=== PATIENT | male | born 1965 | race Caucasian/White ===

== ENCOUNTER 2017-04-28 07:21 | Emergency (ER) | payer SELFPAY ==
[~2017-04-28] VITALS: Ht 152.4 cm; Wt 90.0 kg
[~2017-04-28 07:21] MED LIST: ACET325T33 PO; ALPR0.5T6 PO; FAMO-96 PO; HYDR-3498 PO; HYDR-3720 PO; IBUP-1542 PO; LORA1TAB PO; ONDA4TAB11 PO; PARO10TA76 PO; PROC10TA10 PO; ZOLP5TAB PO
[2017-04-28 07:23] VITALS: Ht 152.4 cm; Wt 90.0 kg
[2017-04-28] MEDS ORDERED: LORAZEPAM 1 MG TAB PO ONE (08:00)
--- NOTE | 2017-04-28 09:16 | ERD ---
ER Documentation Chief Complaint Date/Time DATE: 04/28/17 TIME: 09:15 Chief Complaint daily drinker, last etoh ingestion in am , wants help, not kathy miles HPI Patient is a 52-year-old male with alcohol abuse and hypertension who presents with alcohol. The patient says that he "tried to relax" and drank Tequila this morning. He says "I feel like she had". He wants to get help for his alcohol abuse. Upon review of old medical records the patient has 10 visits to the ER since 2016. Review of the emergency department information exchange system shows visits to 2 separate emergency departments. He does not currently have a primary doctor. ROS All systems reviewed and are negative except as per history of present illness. Medications Home Meds Active Scripts Famotidine* (Pepcid*) 20 Mg Tablet, 20 MG PO BID for 4 Days, #30 TAB Prov:KARRI MIDDLETON PA-C 05/12/16 Acetaminophen* (Tylenol*) 325 Mg Tablet, 2 TAB PO Q8 Y for PAIN AND OR ELEVATED TEMP, #30 TAB Prov:KARRI MIDDLETON PA-C 05/12/16 Paroxetine Hcl* (Paroxetine*) 10 Mg Tablet, 10 MG PO DAILY, #30 TAB Prov:JENARO VASQUEZ MD 03/15/16 Lorazepam* (Lorazepam*) 1 Mg Tablet, 1 MG PO Q8, #10 TAB Prov:JENARO VASQUEZ MD 03/15/16 Ondansetron (Zofran Odt) 4 Mg Tab.rapdis, 4 MG PO QID, #10 Prov:JENARO VASQUEZ MD 03/15/16 Lorazepam* (Lorazepam*) 1 Mg Tablet, 1 MG PO DAILY Y for ANXIETY, #10 TAB 0 Refills Prov:JANAE TAMEZ PA-C 11/18/15 Ibuprofen* (Motrin*) 600 Mg Tab, 600 MG PO Q6, #20 TAB Prov:ZEFERINO WU 10/07/15 Alprazolam* (Alprazolam*) 0.5 Mg Tablet, 0.5 MG PO DAILY Y for ANXIETY, #5 TAB Prov:CARLIE VILLALBA NP 10/01/15 Zolpidem Tartrate* (Ambien*) 5 Mg Tablet, 5 MG PO HS Y for INSOMNIA, #10 TAB Prov:CHANTAL LUGO PA-C 09/21/15 Prochlorperazine* (Prochlorperazine*) 10 Mg Tablet, 10 MG PO Q6 Y for NAUSEA AND /OR VOMITING, #10 TAB Prov:JOSE ORTIZSTOLOS A. DO 09/06/15 Hydrocodone Bit-Acetaminophen* ([place]*) 7.5-325 Tablet, 2 TAB PO Q4H Y for PAIN , #20 TAB Prov:LEKKOS,APOSTOLOS A. DO 09/06/15 Hydrocodone Bit-Acetaminophen* ([place]*) 5-325 Mg Tab, 1 TAB PO Q6 Y for PAIN, # 10 TAB Prov:APRIL COOK DO 08/17/15 Allergies Allergies: Coded Allergies: No Known Allergy (Unverified , 05/12/16) PMhx/Soc History of Surgery: No Anesthesia Reaction: No Hx 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 Disorder: No Hx Respiratory Disorders: No Hx Cardiac Disorders: Yes (HTN) Hx Psychiatric Problems: Yes (ANXIETY) Hx Miscellaneous Medical Probl: Yes (LIVER CIRRHOSIS) Hx Alcohol Use: Yes (DAILY BEERS) Hx Substance Use: No Hx Tobacco Use: No Smoking Status: Former smoker Physical Exam Vitals Vital Signs Date Time Temp Pulse Resp B/P Pulse Ox O2 Delivery O2 Flow Rate FiO2 04/28/17 07:23 98.1 99 18 160/90 99 Physical Exam Const: Mild distress Head: Atraumatic Eyes: Normal Conjunctiva ENT: Normal External Ears, Nose and Mouth. Neck: Full range of motion..~ No meningismus. Resp: Clear to auscultation bilaterally Cardio: Regular rate and rhythm, no murmurs Abd: Soft, non tender, non distended. Normal bowel sounds Skin: No petechiae or rashes Back: No midline or flank tenderness Ext: No cyanosis, or edema Neur: Awake and alert, answering questions appropriately, no tremors Psych: Normal Mood and Affect Results 24 hrs Current Medications Medications (Trade) Dose Ordered Sig/Luis Route PRN Reason Start Time Stop Time Status Last Admin Dose Admin Lorazepam (Ativan) 1 mg ONCE ONCE PO 04/28/17 08:00 04/28/17 08:01 DC 04/28/17 08:08 Procedures/[facility] Patient is a 52-year-old male presents with alcohol abuse. The patient was given Ativan 1 mg by mouth for his symptoms. I told him that we do not have inpatient detox here at the emergency department or in the hospital which she is requesting. I will provide him with a list of the outpatient treatment centers and I do think that he would benefit from outpatient alcohol detox. The patient has no sign of delirium tremens or life-threatening alcohol withdrawal at this time. The patient will be discharged home and was provided with a list of the local treatment centers. He can return for any worsening symptoms. Departure Diagnosis: Primary Impression: Alcohol abuse Condition: Fair Patient Instructions: Alcohol Abuse Referrals: Detox centers Additional Instructions: Specialist:Usted tiene april condicin mdica que requiere que alpa a un especialista dentro de los prximos 1-2 marx.POR FAVOR,CON LUIS SEGUIMIENTO DE PRIMARIA PHSICIAN refferal. SI USTED NO TIENE UN MDICO GENERAL Y / O USTED NO PUEDE PAGAR jarrett a un mdico,los siguientes celis RECURSOS sido suministrado a usted. ES LUIS RESPONSABILIDAD PARA SER VISTOS POR EL ESPECIALISTA: ANA PISANO MD Apr 28, 2017 09:16
== END 2017-04-28 08:23 | disposition home or self-care (01) ==
LOC: E/R 07:21
DX: F10.10 Alcohol abuse, uncomplicated (principal); I10 Essential (primary) hypertension; Z87.891 Personal history of nicotine dependence
CPT/HCPCS: 99283

== ENCOUNTER 2018-06-24 03:43 | Emergency (ER) | END 2018-06-24 04:45 | disposition home or self-care (01) ==

== ENCOUNTER 2018-08-19 12:31 | Inpatient (IN) | payer OTHER ==
[2018-08-19] VITALS (11 sets, daily range): BP systolic 78–145; BP diastolic 29–83; PULSE 73–92; RESP 17–27
[~2018-08-19] VITALS: Ht 167.6 cm; Wt 117.3 kg
[~2018-08-19 12:31] MED LIST changes: +ACET1TAB40 PO; +AMOX1TAB10 PO; +IBUP800T48 PO; +NPH10OT BOTH EARS
[2018-08-19] MEDS ORDERED: SOD CHLORIDE 0.9% 500 ML IV STA (14:01)
--- NOTE | 2018-08-19 14:23 | ERD ---
ER Documentation Chief Complaint Chief Complaint 'nurse called me to get checked for low sodium: 117' AOx4, NAD. HPI 53-year-old male history of alcohol abuse, cirrhosis who presents to the emergency room because of a routine blood draw that showed a sodium of 117. The patient does describe a history of hyponatremia in the past. He states his last drink of alcohol was 7 days ago. He does note some fluid intake but slightly decreased. Normal urine output. He denies any seizure activity headache or altered mental status. No chest pain or shortness of breath. ROS All systems reviewed and are negative except as per history of present illness. Medications Home Meds Reported Medications Losartan Potassium* (Losartan Potassium*) 100 Mg Tablet, 100 MG PO DAILY, TAB 08/19/18 Hydrochlorothiazide* (Hydrochlorothiazide*) 25 Mg Tab, 25 MG PO DAILY, #30 TAB 08/19/18 Lisinopril* (Lisinopril*) 30 Mg Tablet, 30 MG PO DAILY, #30 TAB 08/19/18 Paroxetine Hcl* (Paxil*) 20 Mg Tablet, 20 MG PO DAILY, TAB 08/19/18 Discontinued Scripts Ibuprofen* (Motrin*) 800 Mg Tab, 800 MG PO Q6H PRN for PAIN AND OR ELEVATED TEMP, #30 TAB Prov:ANDREE KENNEDY 06/24/18 Acetaminophen with Codeine (Acetaminophen-Cod #3 Tablet) 1 Each Tablet, 1 TAB PO Q6H PRN for SEVERE PAIN LEVEL 7-10, #7 TAB Prov:ANDREE KENNEDY 06/24/18 Neomycin/Polymyxin/Hydrocort* (Cortisporin* Otic) 10 Ml Susp, 4 DROP BOTH EARS QID for 7 Days, EA Prov:PASILAISSAANDREE 06/24/18 Amoxicillin/Potassium Clav (Amox-Clav 875-125 mg Tablet) 875-125 mg Tab, 1 TAB PO BID for 10 Days, #20 TAB Prov:ANDREE KENNEDY F 06/24/18 Famotidine* (Pepcid*) 20 Mg Tablet, 20 MG PO BID for 4 Days, #30 TAB Prov:KARRI MDIDLETON PA-C 05/12/16 Acetaminophen* (Tylenol*) 325 Mg Tablet, 2 TAB PO Q8 PRN for PAIN AND OR ELEVATED TEMP, #30 TAB Prov:KARRI MIDDLETON PA-C 05/12/16 Paroxetine Hcl* (Paroxetine*) 10 Mg Tablet, 10 MG PO DAILY, #30 TAB Prov:JENARO VASQUEZ MD 03/15/16 Lorazepam* (Lorazepam*) 1 Mg Tablet, 1 MG PO Q8, #10 TAB Prov:JENARO VASQUEZ MD 03/15/16 Ondansetron (Zofran Odt) 4 Mg Tab.rapdis, 4 MG PO QID, #10 Prov:JENARO VASQUEZ MD 03/15/16 Lorazepam* (Lorazepam*) 1 Mg Tablet, 1 MG PO DAILY PRN for ANXIETY, #10 TAB 0 Refills Prov:JANAE TAMEZ PA-C 11/18/15 Ibuprofen* (Motrin*) 600 Mg Tab, 600 MG PO Q6, #20 TAB Prov:ZEFERINO WU MD 10/07/15 Alprazolam* (Alprazolam*) 0.5 Mg Tablet, 0.5 MG PO DAILY PRN for ANXIETY, #5 TAB Prov:CARLIE VILLALBA NP 10/01/15 Zolpidem Tartrate* (Ambien*) 5 Mg Tablet, 5 MG PO HS PRN for INSOMNIA, #10 TAB Prov:CHANTAL LUGO PA-C 09/21/15 Prochlorperazine* (Prochlorperazine*) 10 Mg Tablet, 10 MG PO Q6 PRN for NAUSEA AND/OR VOMITING, #10 TAB Prov:JOSE ORTIZSTOLOS A. DO 09/06/15 Hydrocodone Bit-Acetaminophen* ([place]*) 7.5-325 Tablet, 2 TAB PO Q4H PRN for PAIN, #20 TAB Prov:LEKKOS,APOSTOLOS A. DO 09/06/15 Hydrocodone Bit-Acetaminophen* ([place]*) 5-325 Mg Tab, 1 TAB PO Q6 PRN for PAIN, #10 TAB Prov:APRIL COOK DO 08/17/15 Allergies Allergies: Coded Allergies: No Known Allergy (Unverified , 08/19/18) PMhx/Soc History of Surgery: No Anesthesia Reaction: No Hx 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 Disorder: No Hx Respiratory Disorders: No Hx Cardiac Disorders: Yes (HTN) Hx Psychiatric Problems: Yes (ANXIETY) Hx Miscellaneous Medical Probl: Yes (LIVER CIRRHOSIS) Hx Alcohol Use: Yes (Stated he quit drinking) Hx Substance Use: No Hx Tobacco Use: No Smoking Status: Never smoker FmHx Family History: No diabetes Physical Exam Vitals Vital Signs Date Temp Pulse Resp B/P (MAP) Pulse Ox O2 O2 Flow FiO2 Time Delivery Rate 08/19/18 98.4 75 18 105/62 100 Room Air 14:59 (76) 08/19/18 98.5 89 20 134/60 98 12:36 (84) Physical Exam General: Well developed, well nourished, no acute distress Head: Normocephalic, atraumatic. Eyes: Pupils equally reactive, EOM intact ENT: Dry mucous membranes Neck: Supple, no lymphadenopathy Respiratory: Lungs clear bilaterally, no distress Cardiovascular: RRR, no murmurs, rubs, or gallops Abdominal: Soft, non-tender, non-distended, no peritoneal signs : Deferred MSK: No edema, no unilateral swelling, 5/5 strength Neurologic: Alert and oriented, moving all extremities, normal speech, no focal weakness, no cerebellar signs Skin: No rash Psych: Normal mood Result Diagram: 08/19/18 1404 08/19/18 1404 Results 24 hrs Laboratory Tests Test 08/19/18 14:04 08/19/18 14:25 White Blood Count 7.3 10^3/ul Red Blood Count 3.40 10^6/ul Hemoglobin 11.6 g/dl Hematocrit 31.8 % Mean Corpuscular Volume 93.5 fl Mean Corpuscular Hemoglobin 34.1 pg Mean Corpuscular Hemoglobin Concent 36.5 g/dl Red Cell Distribution Width 13.4 % Platelet Count 112 10^3/UL Mean Platelet Volume 10.5 fl Immature Granulocytes % 0.400 % Neutrophils % 64.2 % Lymphocytes % 18.4 % Monocytes % 15.1 % Eosinophils % 0.8 % Basophils % 1.1 % Nucleated Red Blood Cells % 0.0 /100WBC Immature Granulocytes # 0.030 10^3/ul Neutrophils # 4.7 10^3/ul Lymphocytes # 1.4 10^3/ul Monocytes # 1.1 10^3/ul Eosinophils # 0.1 10^3/ul Basophils # 0.1 10^3/ul Nucleated Red Blood Cells # 0.0 10^3/ul Prothrombin Time 18.0 Sec Prothrombin Time Ratio 1.4 INR International Normalized Ratio 1.48 Activated Partial Thromboplast Time 42.0 Sec Sodium Level 116 mmol/L Potassium Level 3.9 mmol/L Chloride Level 72 mmol/L Carbon Dioxide Level 32 mmol/L Anion Gap 12 Blood Urea Nitrogen 14 mg/dl Creatinine 0.80 mg/dl Est Glomerular Filtrat Rate mL/min > 60 mL/min Glucose Level 115 mg/dl Calcium Level 8.9 mg/dl Total Bilirubin 3.9 mg/dl Direct Bilirubin 1.20 mg/dl Indirect Bilirubin 2.7 mg/dl Aspartate Amino Transf (AST/SGOT) 624 IU/L Alanine Aminotransferase (ALT/SGPT) 188 IU/L Alkaline Phosphatase 170 IU/L Total Protein 8.0 g/dl Albumin 3.6 g/dl Globulin 4.40 g/dl Albumin/Globulin Ratio 0.81 Lipase 273 U/L Urine Color KRISTOPHER Urine Clarity CLEAR Urine pH 7.0 Urine Specific [place] 1.014 Urine Ketones NEGATIVE mg/dL Urine Nitrite NEGATIVE mg/dL Urine Bilirubin 1+ mg/dL Urine Urobilinogen 2+ mg/dL Urine Leukocyte Esterase NEGATIVE Syl[place]/ul Urine Hemoglobin NEGATIVE mg/dL Urine Random Sodium 22 mmol/L Urine Random Potassium 52.1 mmol/L Urine Glucose NEGATIVE mg/dL Urine Total Protein NEGATIVE mg/dl Current Medications Medications Dose Sig/Luis Start Time Status Last (Trade) Ordered Route PRN Stop Time Admin Dose Reason Admin Sodium 500 ml @ Q1H STAT 08/19/18 DC 08/19/18 Chloride 500 mls/hr IV 14:01 14:09 08/19/18 15:00 Sodium 1,000 ml @ Q2H IV 08/19/18 08/19/18 Chloride 500 mls/hr 14:30 14:39 Lisinopril 30 mg DAILY PO 08/20/18 (Zestril) 09:00 Paroxetine 20 mg DAILY PO 08/20/18 HCl (Paxil) 09:00 Ondansetron 4 mg Q6H PRN 08/19/18 HCl (Zofran IV nausea 15:30 Inj) Albuterol 2.5 mg Q2H RESP 08/19/18 (Proventil THERAPY PRN 15:30 0.083% (Neb)) NEB shortness of breath Docusate 100 mg Q12H PRN 08/19/18 Sodium PO 15:30 (Colace) constipation Magnesium 30 ml DAILY PRN 08/19/18 Hydroxide PO 15:30 (Milk Of Mag) constipation Procedures/MDM EKG, MONITORS, & DIAGNOSTIC IMAGING: EKG: I reviewed and interpreted a 12-lead EKG. Rhythm: Normal sinus rhythm ST Changes: No contiguous ST segment elevations T waves: No contiguous T wave inversions Impression: No evidence of acute cardiac ischemia Chest x-ray: I reviewed and interpreted a 1 view of the chest Mediastinum: No enlargement Cardiac silhouette: No cardiomegaly Airspace: Clear lung collins bilaterally without evidence of pneumothorax Bones: No evidence of fracture LAB INTERPRETATION: * CBC without evidence of infectious process * Significant hyponatremia of 116 with mild hyperbilirubinemia and transaminitis consistent with known cirrhosis MEDICAL DECISION MAKING: The patient presents with hyponatremia of 117. This is significant. Patient has no headache and no altered mental status and no seizures to warrant hypertonic saline. The patient's presentation is likely consistent with hypovolemic hyponatremia in the setting of alcohol abuse history. However, gentle fluid replacement is certainly necessary given risk for seizure and cerebral edema. The patient's sodium deficit is approximately 1276 mEq based on calculation on MDCalc. Based on the patient's sodium level, weight, age and gender sodium replacement at 962 mL's per hour with normal saline will increase sodium by 0.5 mmol/L/h. I will start the patient on 500 cc/h, repeat laboratory testing to guide improvement in sodium would be most appropriate in the ICU setting. Continue to monitor. Urine electrolytes have been sent. ER COURSE: * The patient was given gentle fluid resuscitation in the form of normal saline, normal saline replacement as documented above. The patient remained stable. CONSULTATION: None DISPOSITION PLAN: Accepting care team and consultations: I discussed the current laboratory data, diagnostic imaging and emergency care provided. Admitting team: Dr. Gerard Admitting team indication: Insurance directed Critical Care Note: Total time: 42 minutes Indication/Organ System Threat: Severe hyponatremia I spent the above amount of critical care time with the patient, not including billable procedures. This included chart review, consultations, repeat bedside evaluations, and titration of appropriate medications to prevent cardiopulmonary or respiratory collapse. Departure Diagnosis: Primary Impression: Alcohol abuse Additional Impressions: Acute hyponatremia Cirrhosis Condition: Serious ASHLEY MONTERO MD Aug 19, 2018 14:23
[2018-08-19] MEDS: SOD CHLORIDE 0.9% 1,000 ML IV SCH ×3 (14:39→17:27)
[2018-08-19] MEDS ORDERED: PARO-2 PO (14:53)
[2018-08-19] MEDS ORDERED: HYDR25TA6 PO (14:54)
[2018-08-19] MEDS ORDERED: LOSA100T15 PO (14:54)
[2018-08-19] MEDS ORDERED: LISI30TA47 PO (14:54)
--- NOTE | 2018-08-19 15:09 | HP ---
Date/Time of Note Date/Time of Note DATE: 08/19/18 TIME: 15:09 Assessment/Plan VTE Prophylaxis SCD applied (from Nsg): Yes Pharmacological prophylaxis: NA/contraindicated Pharm contraindication: thrombocytopenia Lines/Catheters IV Catheter Type (from Nrsg): Saline Lock Assessment/Plan Assessment/Plan 1. Acute moderate hyponatremia - most likely hypovolemic hyponatremia - Nephrology consulted for further recommendations. Workup ordered and will continue monitoring Na levels with goal of no more than 8-10 increase over 24 hours - patient given NS boluses in ED - Patient does admit to mild headache and visual changes over the past few days - d/c hctz as contributed to hyponatremia 2. Elevated LFT - patient does have a history of cirrhosis but check RUQ US - shows early cholecystitis but patient denies any abdominal discomfort or difficulty eating - will start antibiotics empirically 3. Alcoholic hepatitis - AST>ALT which is consistent with alcoholic etiology - will order hep panel as well - if no improvement will consult GI for further recommendations 4. Alcoholic liver cirrhosis - had outpatient follow up scheduled for evaluation - no ascites appreciated and will hold off on diuretics in setting of hyponatremia 5. Anemia of chronic disease - will check iron studies - no acute bleeding appreciated 6. Ringing in ear - congestion appreciate - will order nasal saline 7. Diet - cardiac 8. DVT ppx - SCD 9. Disposition - Admit to ICU for close monitoring given Na 116 Result Diagram: 08/19/18 1404 08/19/18 1404 Results 24hrs Laboratory Tests Test 08/19/18 14:04 08/19/18 14:25 White Blood Count 7.3 Red Blood Count 3.40 L Hemoglobin 11.6 L Hematocrit 31.8 #L Mean Corpuscular Volume 93.5 Mean Corpuscular Hemoglobin 34.1 H Mean Corpuscular Hemoglobin Concent 36.5 Red Cell Distribution Width 13.4 Platelet Count 112 L Mean Platelet Volume 10.5 #H Immature Granulocytes % 0.400 Neutrophils % 64.2 Lymphocytes % 18.4 Monocytes % 15.1 H Eosinophils % 0.8 Basophils % 1.1 Nucleated Red Blood Cells % 0.0 Immature Granulocytes # 0.030 Neutrophils # 4.7 Lymphocytes # 1.4 Monocytes # 1.1 H Eosinophils # 0.1 Basophils # 0.1 Nucleated Red Blood Cells # 0.0 Prothrombin Time 18.0 H Prothrombin Time Ratio 1.4 INR International Normalized Ratio 1.48 Activated Partial Thromboplast Time 42.0 H Sodium Level 116 *L Potassium Level 3.9 Chloride Level 72 L Carbon Dioxide Level 32 H Anion Gap 12 Blood Urea Nitrogen 14 Creatinine 0.80 Est Glomerular Filtrat Rate mL/min > 60 Glucose Level 115 Calcium Level 8.9 Total Bilirubin 3.9 H Direct Bilirubin 1.20 H Indirect Bilirubin 2.7 H Aspartate Amino Transf (AST/SGOT) 624 H Alanine Aminotransferase (ALT/SGPT) 188 H Alkaline Phosphatase 170 H Total Protein 8.0 Albumin 3.6 Globulin 4.40 H Albumin/Globulin Ratio 0.81 Lipase 273 Urine Color KRISTOPHER Urine Clarity CLEAR Urine pH 7.0 Urine Specific [place] 1.014 Urine Ketones NEGATIVE Urine Nitrite NEGATIVE Urine Bilirubin 1+ H Urine Urobilinogen 2+ H Urine Leukocyte Esterase NEGATIVE Urine Hemoglobin NEGATIVE Urine Glucose NEGATIVE Urine Total Protein NEGATIVE HPI/ROS Admit Date/Time Admit Date/Time 08/19/18 at 1500 Hx of Present Illness 53 yo M with PMH HTN and alcoholic liver cirrhosis presented to ED for evaluation of general malaise and Na 117. Patient states he has not been feeling well for some time but has worsened over the past couple days. His PCP ordered lab work and was told to go to the ED due to findings of Na 117. Patient states he has experiencing hyponatremia 1-2 years ago. Patient admits to mild headache with slightly blurred vision and ringing in left ear but denies any loss of vision, neuropathy, dizziness, loss of consciousness, nausea, vomiting, congestion. 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 Last etoh use was 1 week ago. Denies any chest pain, shortness of breath, palpitations, wheezing, or cough. ROS All 12 systems reviewed and pertinent positives as per HPI. All others negative. Constitutional: No disoriented, No nausea Eyes: No discharge ENT: other (ringing in right ear); No congestion Respiratory: No cough, No shortness of breath, No sputum, No wheezing Cardiovascular: No chest pain, No lightheadedness, No palpitations Gastrointestinal: No pain, No constipation, No diarrhea, No nausea, No vomiting Genitourinary: no complaints Musculoskeletal: no complaints Skin: skin lesions Neurologic: headache; No confusion, No dizziness, No focal-weakness, No syncope Endocrine: no complaints Lymphatic: no complaints Psychological: nl mood/affect Immunologic: no complaints PMH/Family/Social Past Medical History Medical History: hypertension, other (alcoholic liver cirrhosis) Medications Current Medications Sodium Chloride 1,000 ml @ 500 mls/hr Q2H IV Last administered on 08/19/18at 14:39; Admin Dose 500 MLS/HR; Start 08/19/18 at 14:30 Lisinopril (Zestril) 30 mg DAILY PO ; Start 08/20/18 at 09:00; Status UNV Paroxetine HCl (Paxil) 20 mg DAILY PO ; Start 08/20/18 at 09:00; Status UNV Coded Allergies: No Known Allergy (Unverified , 08/19/18) Past Surgical History Past Surgical Hx: no surgical history Family History Significant Family History: no pertinent family hx Social History Alcohol Use: other (last use 1 week ago) Smoking Status: Never smoker Drug Use: none Exam/Review of Systems Vital Signs Vitals Vital Signs Date Temp Pulse Resp B/P (MAP) Pulse Ox O2 O2 Flow FiO2 Time Delivery Rate 08/19/18 98.4 75 18 105/62 100 Room Air 14:59 (76) Exam Exam General: Patient is laying in bed, no acute distress. answering questions appropriately HEENT: NC/AT. PERRL. EOM intact. Neck: Supple Respiratory: Clear to auscultation bilaterally. no wheezing or rhonchi Cardiovascular: S1, S2, regular rate and rhythm, no obvious murmurs Gastrointestinal: soft, non-tender to palpation, protuberant, bowel sounds heard. 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: CN 2-12 intact, no focal deficits. sensation and motor intact Skin: lesion on nose and left cheek. no discharge or drainage Ext: no cyanosis, clubbing or edema. dry mucous membranes. Additional Comments Home medications reviewed. Imaging: PROCEDURE: Right upper quadrant ultrasound CLINICAL INDICATION: Abnormal liver function TECHNIQUE: Multiple real-time images were acquired of the patient's abdomen and right retroperitoneum utilizing a high resolution transducer. COMPARISON: 05/12/2016 FINDINGS: The liver is increased in echogenicity and measures 18.3 cm. No focal hepatic masses are seen. The gallbladder is physiologically distended. There is new sludge identified within the gallbladder. There is mild thickening of the gallbladder wall. No pericholecystic fluid is seen. The intra and extrahepatic bile ducts are normal in caliber. The common bile duct measures 2.4 mm. Pancreas is not visualized due to overlying bowel gas. Survey views of the right kidney demonstrate no evidence of hydronephrosis or renal calculi. The right kidney measures 10.8 cm. There is a 9 mm right renal cyst. IMPRESSION: 1. New sludge is noted in the gallbladder. There is mild thickening of the gallbladder wall. The right clinical setting this may suggest early cholecystitis. 2. No biliary duct dilatation. 3. Fatty change of the liver. 4. Pancreas not visualized RPTAT: HH .Sudheer Merritt MD, MD Date Time Electronically viewed and signed by .Sudheer Merritt MD, MD on 08/19/2018 15:56 PROCEDURE: XR Chest AP portable CLINICAL INDICATION: Low sodium, rule out pulmonary process TECHNIQUE: An AP portable radiograph of the chest was submitted. COMPARISON: None. FINDINGS: Support Hardware: None Cardiovascular: The cardiovascular silhouette appears unremarkable. Lung Collins: The lung collins appear clear with no nodule, alveolar infiltrate, or interstitial prominence evident. Pleural Spaces: No pneumothorax or pleural effusion is identified. Osseous Structures: The osseous structures appear intact. Soft Tissues: The soft tissues appear generous. IMPRESSION: Unremarkable portable chest. Physician Erika Date Time Electronically viewed and signed by Physician Erika on 08/19/2018 14:29 PRINCE PENA MD Aug 19, 2018 15:09
--- NOTE | 2018-08-19 15:23 | CONS ---
Assessment/Plan Assessment/Plan Assessment/Plan (Daily) 1. Moderate to severe symptomatic hyponatremia 2. Liver cirrhosis 3. alcoholic hepatitis 4. Elevated LFTs 5. anemia fo chronic disease 6. Hypoalbuminemia due to liver disease Plan: seen in ICU, S/p IV bolus in ED, Urine Na 22, c/w low albumin status IVF NS at 85 cc/hr urine osmolarity, serum osmolarity, uric acid IV albumin 25% 50ml Q 8 hr x 3 for low albumin BUN/Cr has been normal Seen in ICU, thanks for consultation, I will continue to follow up Consultation Date/Type/Reason Admit Date/Time 08/19/2018 Date of Consultation: Aug 19, 2018 Type of Consult NEPHROLOGY Reason for Consultation Severe Hyponatremia Requesting Provider: PRINCE PENA MD Date/Time of Note DATE: 08/19/18 TIME: 15:22 Hx of Present Illness 53 yo M with PMH HTN and alcoholic liver cirrhosis presented to ED for evaluation of general malaise and Na 117. Patient states he has not been feeling well for some time but has worsened over the past couple days. pt follows with liver cirrhosis as outpatient after NS 500 cc IV bolus Na improved to 118 albumin 3.2 No chest pain, no palpitation , no SOB, no nausea, no vomiting Constitutional: poor po Eyes: no complaints ENT: congestion, sore throat Respiratory: no complaints Cardiovascular: no complaints Gastrointestinal: no complaints Genitourinary: no complaints Musculoskeletal: no complaints Skin: no complaints Neurologic: no complaints Endocrine: no complaints Lymphatic: no complaints Psychological: no complaints Immunologic: no complaints Past Medical History Medical History: high cholesterol, hypertension, other (ESLD, liver Cirrhosis ) Home Meds Reported Medications Losartan Potassium* (Losartan Potassium*) 100 Mg Tablet, 100 MG PO DAILY, TAB 08/19/18 Hydrochlorothiazide* (Hydrochlorothiazide*) 25 Mg Tab, 25 MG PO DAILY, #30 TAB 08/19/18 Lisinopril* (Lisinopril*) 30 Mg Tablet, 30 MG PO DAILY, #30 TAB 08/19/18 Paroxetine Hcl* (Paxil*) 20 Mg Tablet, 20 MG PO DAILY, TAB 08/19/18 Discontinued Scripts Ibuprofen* (Motrin*) 800 Mg Tab, 800 MG PO Q6H PRN for PAIN AND OR ELEVATED TEMP, #30 TAB Prov:ANDREE KENNEDY 06/24/18 Acetaminophen with Codeine (Acetaminophen-Cod #3 Tablet) 1 Each Tablet, 1 TAB PO Q6H PRN for SEVERE PAIN LEVEL 7-10, #7 TAB Prov:ANDREE KENNEDY 06/24/18 Neomycin/Polymyxin/Hydrocort* (Cortisporin* Otic) 10 Ml Susp, 4 DROP BOTH EARS QID for 7 Days, EA Prov:ANDREE KENNEDY 06/24/18 Amoxicillin/Potassium Clav (Amox-Clav 875-125 mg Tablet) 875-125 mg Tab, 1 TAB PO BID for 10 Days, #20 TAB Prov:ANDREE KENNEDY 06/24/18 Famotidine* (Pepcid*) 20 Mg Tablet, 20 MG PO BID for 4 Days, #30 TAB Prov:KARRI MIDDLETON PA-C 05/12/16 Acetaminophen* (Tylenol*) 325 Mg Tablet, 2 TAB PO Q8 PRN for PAIN AND OR ELEVATED TEMP, #30 TAB Prov:KARRI MIDDLETON PA-C 05/12/16 Paroxetine Hcl* (Paroxetine*) 10 Mg Tablet, 10 MG PO DAILY, #30 TAB Prov:JENARO VASUQEZ MD 03/15/16 Lorazepam* (Lorazepam*) 1 Mg Tablet, 1 MG PO Q8, #10 TAB Prov:JENARO VASQUEZ MD 03/15/16 Ondansetron (Zofran Odt) 4 Mg Tab.rapdis, 4 MG PO QID, #10 Prov:JENARO VASQUEZ MD 03/15/16 Lorazepam* (Lorazepam*) 1 Mg Tablet, 1 MG PO DAILY PRN for ANXIETY, #10 TAB 0 Refills Prov:JANAE TAMEZ PA-C 11/18/15 Ibuprofen* (Motrin*) 600 Mg Tab, 600 MG PO Q6, #20 TAB Prov:ZEFERINO WU MD 10/07/15 Alprazolam* (Alprazolam*) 0.5 Mg Tablet, 0.5 MG PO DAILY PRN for ANXIETY, #5 TAB Prov:CARLIE VILLALBA NP 10/01/15 Zolpidem Tartrate* (Ambien*) 5 Mg Tablet, 5 MG PO HS PRN for INSOMNIA, #10 TAB Prov:CHANTAL LUGO PA-C 09/21/15 Prochlorperazine* (Prochlorperazine*) 10 Mg Tablet, 10 MG PO Q6 PRN for NAUSEA AND/OR VOMITING, #10 TAB Prov:EDWINMARIPOSAAMARA Rhianna. DO 09/06/15 Hydrocodone Bit-Acetaminophen* ([place]*) 7.5-325 Tablet, 2 TAB PO Q4H PRN for PAIN, #20 TAB Prov:ANGELJOSESTDOMOS A. DO 09/06/15 Hydrocodone Bit-Acetaminophen* ([place]*) 5-325 Mg Tab, 1 TAB PO Q6 PRN for PAIN, #10 TAB Prov:APRIL COOK DO 08/17/15 Medications Current Medications Sodium Chloride 1,000 ml @ 500 mls/hr Q2H IV Last administered on 08/19/18at 14:39; Admin Dose 500 MLS/HR; Start 08/19/18 at 14:30 Lisinopril (Zestril) 30 mg DAILY PO ; Start 08/20/18 at 09:00 Paroxetine HCl (Paxil) 20 mg DAILY PO ; Start 08/20/18 at 09:00 Ondansetron HCl (Zofran Inj) 4 mg Q6H PRN IV nausea; Start 08/19/18 at 15:30 Albuterol (Proventil 0.083% (Neb)) 2.5 mg Q2H RESP THERAPY PRN NEB shortness of breath; Start 08/19/18 at 15:30 Docusate Sodium (Colace) 100 mg Q12H PRN PO constipation; Start 08/19/18 at 15:30 Magnesium Hydroxide (Milk Of Mag) 30 ml DAILY PRN PO constipation; Start 08/19/18 at 15:30 Allergies: Coded Allergies: No Known Allergy (Unverified , 08/19/18) Past Surgical History Past Surgical Hx: no surgical history Family History Significant Family History: no pertinent family hx Social History Alcohol Use: none Smoking Status: Never smoker Drug Use: none Exam/Review of Systems Exam Vitals Vital Signs Date Temp Pulse Resp B/P (MAP) Pulse Ox O2 O2 Flow FiO2 Time Delivery Rate 08/19/18 98.4 75 18 105/62 100 Room Air 14:59 (76) Constitutional: alert, distress Head: normocephalic Eyes: nl conjunctiva ENMT: nl external ears & nose Neck: supple, jvd Respiratory: congested cough, crackles/rales, diminished breath sounds Cardiovascular: regular rate and rhythm, nl pulses Gastrointestinal: soft, non-tender Musculoskeletal: muscle weakness, swelling Extremities: normal pulses 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: DOOR GLASS INSTALLER II-XII intact, nl mental status Skin: nl turgor Lymph: nl lymph nodes Results Result Diagram: 08/19/18 1404 08/19/18 1404 Results 24hrs Laboratory Tests Test 08/19/18 14:04 08/19/18 14:25 White Blood Count 7.3 Red Blood Count 3.40 L Hemoglobin 11.6 L Hematocrit 31.8 #L Mean Corpuscular Volume 93.5 Mean Corpuscular Hemoglobin 34.1 H Mean Corpuscular Hemoglobin Concent 36.5 Red Cell Distribution Width 13.4 Platelet Count 112 L Mean Platelet Volume 10.5 #H Immature Granulocytes % 0.400 Neutrophils % 64.2 Lymphocytes % 18.4 Monocytes % 15.1 H Eosinophils % 0.8 Basophils % 1.1 Nucleated Red Blood Cells % 0.0 Immature Granulocytes # 0.030 Neutrophils # 4.7 Lymphocytes # 1.4 Monocytes # 1.1 H Eosinophils # 0.1 Basophils # 0.1 Nucleated Red Blood Cells # 0.0 Prothrombin Time 18.0 H Prothrombin Time Ratio 1.4 INR International Normalized Ratio 1.48 Activated Partial Thromboplast Time 42.0 H Sodium Level 116 *L Potassium Level 3.9 Chloride Level 72 L Carbon Dioxide Level 32 H Anion Gap 12 Blood Urea Nitrogen 14 Creatinine 0.80 Est Glomerular Filtrat Rate mL/min > 60 Glucose Level 115 Calcium Level 8.9 Total Bilirubin 3.9 H Direct Bilirubin 1.20 H Indirect Bilirubin 2.7 H Aspartate Amino Transf (AST/SGOT) 624 H Alanine Aminotransferase (ALT/SGPT) 188 H Alkaline Phosphatase 170 H Total Protein 8.0 Albumin 3.6 Globulin 4.40 H Albumin/Globulin Ratio 0.81 Lipase 273 Urine Color KRISTOPHER Urine Clarity CLEAR Urine pH 7.0 Urine Specific [place] 1.014 Urine Ketones NEGATIVE Urine Nitrite NEGATIVE Urine Bilirubin 1+ H Urine Urobilinogen 2+ H Urine Leukocyte Esterase NEGATIVE Urine Hemoglobin NEGATIVE Urine Random Sodium 22 L Urine Random Potassium 52.1 Urine Glucose NEGATIVE Urine Total Protein NEGATIVE BUCK CARO MD Aug 19, 2018 15:23
[2018-08-19] MEDS ORDERED: ONDANSETRON 4 MG INJ IV PRN (15:30)
[2018-08-19] MEDS ORDERED: ALBUTEROL 0.083% (NEB) 2.5 MG/3 ML AMP NEB PRN (15:30)
[2018-08-19] MEDS ORDERED: DOCUSATE SODIUM 100 MG CAP PO PRN (15:30)
[2018-08-19] MEDS ORDERED: MAGNESIUM HYDROXIDE 30ML CUP PO PRN (15:30)
[2018-08-19] MEDS: PIPER-TAZO 2.25 GM (PMX) 50 ML IVPB SCH ×2 (17:36→22:09)
--- NOTE | 2018-08-19 18:32 | NUR ---
ICU Admission Pt. admitted from ER at 1530 with an admitting diagnosis of hyponatremia. Pt. A/O x4, no neurological deficits appreciated with exception of blurry vision which was present upon arrival at the Emergency Department and has been improving. hands and dial inspector shows NSR and patient is normotensive. No supplemental oxygen with an O2 sat of 98%. Pt. instructed on how to use call light and and oriented to surroundings. No acute issues at this time; will continue to monitor.
[2018-08-19] MEDS ORDERED: POTASSIUM CHLORIDE (SR) 20 MEQ TAB PO STA (19:34)
--- NOTE | 2018-08-19 20:05 | NUR ---
Pt is hypotensive but asymptomatic. called dr. fitzgerald, orders received.
[2018-08-19] MEDS ORDERED: ALBUMIN HUMAN 25% 100 ML ONE (20:12)
[2018-08-19] MEDS: ALBUMIN HUMAN 25% 100 ML IV SCH ×2 (20:28→22:13)
[2018-08-19] MEDS ORDERED: SALINE 0.65% 45 ML NAS SPRAY NASAL SCH (21:00)
[2018-08-19] MEDS: ALBUMIN HUMAN 25% 50 ML IV SCH (23:35)
[2018-08-20] VITALS (26 sets, daily range): BP systolic 97–157; BP diastolic 53–97; PULSE 78–109; RESP 17–34
[2018-08-20] MEDS: PIPER-TAZO 2.25 GM (PMX) 50 ML IVPB SCH ×3 (05:34→21:04)
--- NOTE | 2018-08-20 05:36 | NUR ---
end of shift report no acute events over night. pt had episode of asymptomatic hypotension which resolved after albumin was given. good urine output, vitals after albumin wnl. pt slept well throughout the night. afebrile. denies headache, n/v, chest pain, sob and/or pain. pt able to ambulate to the bathroom independently. Pts sodium levels are improving.
[2018-08-20] MEDS: ALBUMIN HUMAN 25% 50 ML IV SCH ×2 (06:19→15:33)
[2018-08-20] MEDS: PAROXETINE 20 MG TAB PO SCH (08:24)
[2018-08-20] MEDS: LISINOPRIL 10 MG TAB PO SCH (08:25)
[2018-08-20] MEDS ORDERED: SALINE 0.65% 45 ML NAS SPRAY NASAL SCH (08:31)
--- NOTE | 2018-08-20 09:08 | CONS ---
Assessment/Plan Assessment/Plan Assessment/Plan (Daily) 1. Moderate to severe symptomatic hyponatremia 2. Liver cirrhosis 3. alcoholic hepatitis 4. Elevated LFTs 5. anemia fo chronic disease 6. Hypoalbuminemia due to liver disease Plan: Na improved to 132 with IVF NS IVF NS - decrease rate to 50 cc /hr then d/c BUN/Cr has been normal will follow up on pt ok for telemetry floor Consultation Date/Type/Reason Admit Date/Time Aug 19, 2018 at 14:43 Initial Consult Date 08/19/18 Type of Consult NEPHROLOGY Requesting Provider: PRINCE PENA MD Date/Time of Note DATE: 08/20/18 TIME: 09:08 24 HR Interval Summary Free Text/Dictation Na imrpoved to 132, pt normal, afebrile, no acute events Exam/Review of Systems Exam Vitals Vital Signs Date Temp Pulse Resp B/P (MAP) Pulse Ox O2 O2 Flow FiO2 Time Delivery Rate 08/20/18 80 24 115/62 98 Room Air 06:00 (79) 08/20/18 98.3 04:00 Intake and Output 08/19/18 08/19/18 08/20/18 1515:00 23:00 07:00 IntakeIntake Total 2075 ml 625 ml OutputOutput Total 650 ml 2900 ml BalanceBalance 1425 ml -2275 ml Constitutional: alert, awake, no acute distress Respiratory: congested cough, crackles/rales, diminished breath sounds Cardiovascular: regular rate and rhythm, nl pulses Gastrointestinal: soft, non-tender Musculoskeletal: muscle weakness, swelling Extremities: normal pulses 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: BEAUTY 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 II-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 intact, nl mental status Skin: nl turgor Lymph: nl lymph nodes Results Result Diagram: 08/19/18 1404 08/20/18 0422 Results 24hrs Laboratory Tests Test 08/19/18 14:04 08/19/18 14:05 08/19/18 14:25 08/19/18 18:14 White Blood Count 7.3 Red Blood Count 3.40 L Hemoglobin 11.6 L Hematocrit 31.8 #L Mean Corpuscular 93.5 Volume Mean Corpuscular 34.1 H Hemoglobin Mean Corpuscular 36.5 Hemoglobin Concent Red Cell 13.4 Distribution Width Platelet Count 112 L Mean Platelet Volume 10.5 #H Immature 0.400 Granulocytes % Neutrophils % 64.2 Lymphocytes % 18.4 Monocytes % 15.1 H Eosinophils % 0.8 Basophils % 1.1 Nucleated Red Blood 0.0 Cells % Immature 0.030 Granulocytes # Neutrophils # 4.7 Lymphocytes # 1.4 Monocytes # 1.1 H Eosinophils # 0.1 Basophils # 0.1 Nucleated Red Blood 0.0 Cells # Prothrombin Time 18.0 H Prothrombin Time 1.4 Ratio INR International 1.48 Normalized Ratio Activated 42.0 H Partial Thromboplast Time Sodium Level 116 *L 118 *L Potassium Level 3.9 3.2 L Chloride Level 72 L 78 #L Carbon Dioxide Level 32 H 29 Anion Gap 12 11 Blood Urea Nitrogen 14 13 Creatinine 0.80 0.66 Est Glomerular > 60 Filtrat Rate mL/min Glucose Level 115 154 Calcium Level 8.9 8.3 L Total Bilirubin 3.9 H Direct Bilirubin 1.20 H Indirect Bilirubin 2.7 H Aspartate Amino 624 H Transf (AST/SGOT) Alanine 188 H Aminotransferase (AL T/SGPT) Alkaline Phosphatase 170 H Total Protein 8.0 Albumin 3.6 3.2 L Globulin 4.40 H Albumin/Globulin 0.81 Ratio Lipase 273 Osmolality 241 L Uric Acid 2.0 L Urine Color KRISTOPHER Urine Clarity CLEAR Urine pH 7.0 Urine Specific 1.014 [place] Urine Ketones NEGATIVE Urine Nitrite NEGATIVE Urine Bilirubin 1+ H Urine Urobilinogen 2+ H Urine Leukocyte NEGATIVE Esterase Urine Hemoglobin NEGATIVE Urine Osmolality 394 Urine Random Sodium 22 L Urine Random 52.1 Potassium Urine Glucose NEGATIVE Urine Total Protein NEGATIVE Phosphorus Level 2.6 Hepatitis B Surface NEGATIVE Antigen Hepatitis B Core NEGATIVE Total Antibody Hepatitis C Antibody REACTIVE H Test 08/19/18 23:01 08/20/18 01:24 08/20/18 04:22 Sodium Level 123 L 126 L 127 L Potassium Level 3.7 3.9 3.7 Chloride Level 81 L 84 L 89 L Carbon Dioxide Level 27 30 30 Anion Gap 15 H 12 8 Blood Urea Nitrogen 13 12 11 Creatinine 0.73 0.71 0.68 Glucose Level 100 # 94 95 Calcium Level 8.4 8.8 8.8 Phosphorus Level 2.6 2.5 Albumin 3.6 3.9 3.7 Est Glomerular > 60 Filtrat Rate mL/min Magnesium Level 2.1 Total Bilirubin 2.7 H Direct Bilirubin 0.90 #H Indirect Bilirubin 1.8 H Aspartate Amino 404 H Transf (AST/SGOT) Alanine 153 H Aminotransferase (AL T/SGPT) Alkaline Phosphatase 184 H Total Protein 7.5 Globulin 3.80 H Albumin/Globulin 0.97 Ratio BUCK CARO MD Aug 20, 2018 09:08
--- NOTE | 2018-08-20 09:10 | NUR ---
PT evaluation Therapy day number 1 Evaluation Start Time 09:10 Evaluation End Time 09:50 Evaluation Total Time 40 min Subjective Denies pain Pain Scale NUMERIC Pain Intensity 0 (0-10) Patient Stated Goal for Pain Relief 0 (0-10) Pain Level Comment denies pain Pre Treatment Vital Signs Stable Yes Supine to Sit Independent Transfer Sit to Stand Ability Independent Bed Mobility Sit to Supine Independent Bed Transfer Ability Independent Chair Transfer Ability Independent Gait Assist Levels Independent Assistive Devices None Ambulation Distance 400 feet Additional Gait Comments able to change direction and speeds without difficulty on cue Static Sitting Balance Good Dynamic Sitting Balance Good Standing Static Balance Good Dynamic Standing Balance Good Safety Judgement Good Activity Tolerance Good Equipment Present IV pump Additional Equipment Present ICU monitoring Post Treatment Pain Intensity 0 0-10 Additional Post Treatment Comment See note Total Minutes 40 Total Units 3 PT Technical Record Comment 53 yo male presents with general malaise and low sodium. Presents with mild headache, blurred vision, and ringling in L ear. CXR unremarkable. Abdominal US indicates new sludge in gallbladder, fatty change of the liver PMH: HTN and alcoholic liver cirrhosis Precautions: fall risk, ICU monitoring PLOF: Patient reports independent mobility with no AD, lives in a [facility] with spouse. S: Patient in bed, agreeable to PT evaluation. pt cleared for activity per RN. O: PT evaluation completed, pt returned back to bed following therapy intervention with call light within reach and all needs met. No reports of pain, dizziness, or shortness of breath with activity. Vitals stable throughout. Spoke to RN regarding pt response to activity and PT plan of care. Spouse present for portion of evaluation. A: Patient presents with strong mobility throughout with no assistive device. Patient able to change directions and speeds without difficulty or loss of balance. Pt receptive to PT education throughout but otherwise demonstrates baseline functional mobility and thus does not require skilled inpatient PT at this time. P: Discharge physical therapy, Patient may ambulate with nursing, no recommendations for DME at this time
--- NOTE | 2018-08-20 09:34 | PN ---
Date/Time of Note Date/Time of Note DATE: 08/20/18 TIME: 09:34 Assessment/Plan VTE Prophylaxis Risk score (from [facility] [place])>0 risk: 3 SCD applied (from [facility] [place]): Yes Pharmacological prophylaxis: NA/contraindicated Pharm contraindication: thrombocytopenia Lines/Catheters IV [facility]ter Type (from [facility]): Peripheral IV Urinary Cath still in place: No Assessment/Plan Assessment/Plan 1. Acute moderate hyponatremia- improving - Nephrology input appreciated and Na levels continue to improve. No neurological changes appreciated - most likely hypovolemic hyponatremia - d/c hctz as contributed to hyponatremia 2. Elevated LFT - Hep C Ab positives and further studies ordered - RUQ US results appreciated but pt denies any symptoms - has outpatient GI follow up 3. Alcoholic hepatitis - AST>ALT which is consistent with alcoholic etiology 4. Alcoholic liver cirrhosis - had outpatient follow up scheduled for evaluation - no ascites appreciated and will hold off on diuretics in setting of hyponatremia 5. Anemia of chronic disease - no acute bleeding appreciated 6. Ringing in ear - congestion appreciate - will order flonase 7. Hep C - will order further studies - will need outpatient follow up 8. Disposition - stable for transfer to telemetry. Continue monitoring Na levels and when at baseline and no further issues, will d/c home Result Diagram: 08/19/18 1404 08/20/18 0422 Results 24hrs Laboratory Tests Test 08/19/18 14:04 08/19/18 14:05 08/19/18 14:25 08/19/18 18:14 White Blood Count 7.3 Red Blood Count 3.40 L Hemoglobin 11.6 L Hematocrit 31.8 #L Mean Corpuscular 93.5 Volume Mean Corpuscular 34.1 H Hemoglobin Mean Corpuscular 36.5 Hemoglobin Concent Red Cell 13.4 Distribution Width Platelet Count 112 L Mean Platelet Volume 10.5 #H Immature 0.400 Granulocytes % Neutrophils % 64.2 Lymphocytes % 18.4 Monocytes % 15.1 H Eosinophils % 0.8 Basophils % 1.1 Nucleated Red Blood 0.0 Cells % Immature 0.030 Granulocytes # Neutrophils # 4.7 Lymphocytes # 1.4 Monocytes # 1.1 H Eosinophils # 0.1 Basophils # 0.1 Nucleated Red Blood 0.0 Cells # Prothrombin Time 18.0 H Prothrombin Time 1.4 Ratio INR International 1.48 Normalized Ratio Activated 42.0 H Partial Thromboplast Time Sodium Level 116 *L 118 *L Potassium Level 3.9 3.2 L Chloride Level 72 L 78 #L Carbon Dioxide Level 32 H 29 Anion Gap 12 11 Blood Urea Nitrogen 14 13 Creatinine 0.80 0.66 Est Glomerular > 60 Filtrat Rate mL/min Glucose Level 115 154 Calcium Level 8.9 8.3 L Total Bilirubin 3.9 H Direct Bilirubin 1.20 H Indirect Bilirubin 2.7 H Aspartate Amino 624 H Transf (AST/SGOT) Alanine 188 H Aminotransferase (AL T/SGPT) Alkaline Phosphatase 170 H Total Protein 8.0 Albumin 3.6 3.2 L Globulin 4.40 H Albumin/Globulin 0.81 Ratio Lipase 273 Osmolality 241 L Uric Acid 2.0 L Urine Color KRISTOPHER Urine Clarity CLEAR Urine pH 7.0 Urine Specific 1.014 [place] Urine Ketones NEGATIVE Urine Nitrite NEGATIVE Urine Bilirubin 1+ H Urine Urobilinogen 2+ H Urine Leukocyte NEGATIVE Esterase Urine Hemoglobin NEGATIVE Urine Osmolality 394 Urine Random Sodium 22 L Urine Random 52.1 Potassium Urine Glucose NEGATIVE Urine Total Protein NEGATIVE Phosphorus Level 2.6 Hepatitis B Surface NEGATIVE Antigen Hepatitis B Core NEGATIVE Total Antibody Hepatitis C Antibody REACTIVE H Test 08/19/18 23:01 08/20/18 01:24 08/20/18 04:22 Sodium Level 123 L 126 L 127 L Potassium Level 3.7 3.9 3.7 Chloride Level 81 L 84 L 89 L Carbon Dioxide Level 27 30 30 Anion Gap 15 H 12 8 Blood Urea Nitrogen 13 12 11 Creatinine 0.73 0.71 0.68 Glucose Level 100 # 94 95 Calcium Level 8.4 8.8 8.8 Phosphorus Level 2.6 2.5 Albumin 3.6 3.9 3.7 Est Glomerular > 60 Filtrat Rate mL/min Magnesium Level 2.1 Total Bilirubin 2.7 H Direct Bilirubin 0.90 #H Indirect Bilirubin 1.8 H Aspartate Amino 404 H Transf (AST/SGOT) Alanine 153 H Aminotransferase (AL T/SGPT) Alkaline Phosphatase 184 H Total Protein 7.5 Globulin 3.80 H Albumin/Globulin 0.97 Ratio Subjective 24 Hr Interval Summary Free Text/Dictation Patient states he's feeling significantly better this am but still with ringing in right ear. Exam/Review of Systems Exam Vitals Vital Signs Date Temp Pulse Resp B/P (MAP) Pulse Ox O2 O2 Flow FiO2 Time Delivery Rate 08/20/18 83 08:00 1/25/19 24 115/62 98 Room Air 06:00 (79) 08/20/18 98.3 04:00 Intake and Output 08/19/18 08/19/18 08/20/18 1414:59 22:59 06:59 IntakeIntake Total 1850 ml 850 ml OutputOutput Total 650 ml 2900 ml BalanceBalance 1200 ml -2050 ml physical exam General: Patient is laying in bed, no acute distress. answering questions appropriately Ear: R-no light reflex, dullness. L- normal Respiratory: Clear to auscultation bilaterally. no wheezing or rhonchi Cardiovascular: S1, S2, regular rate and rhythm, no obvious murmurs Gastrointestinal: soft, non-tender to palpation, protuberant, bowel sounds heard. Skin: lesion on nose and left cheek. no discharge or drainage Ext: no cyanosis, clubbing or edema. dry mucous membranes. Results Results 24hrs Laboratory Tests Test 08/19/18 14:04 08/19/18 14:05 08/19/18 14:25 08/19/18 18:14 White Blood Count 7.3 Red Blood Count 3.40 L Hemoglobin 11.6 L Hematocrit 31.8 #L Mean Corpuscular 93.5 Volume Mean Corpuscular 34.1 H Hemoglobin Mean Corpuscular 36.5 Hemoglobin Concent Red Cell 13.4 Distribution Width Platelet Count 112 L Mean Platelet Volume 10.5 #H Immature 0.400 Granulocytes % Neutrophils % 64.2 Lymphocytes % 18.4 Monocytes % 15.1 H Eosinophils % 0.8 Basophils % 1.1 Nucleated Red Blood 0.0 Cells % Immature 0.030 Granulocytes # Neutrophils # 4.7 Lymphocytes # 1.4 Monocytes # 1.1 H Eosinophils # 0.1 Basophils # 0.1 Nucleated Red Blood 0.0 Cells # Prothrombin Time 18.0 H Prothrombin Time 1.4 Ratio INR International 1.48 Normalized Ratio Activated 42.0 H Partial Thromboplast Time Sodium Level 116 *L 118 *L Potassium Level 3.9 3.2 L Chloride Level 72 L 78 #L Carbon Dioxide Level 32 H 29 Anion Gap 12 11 Blood Urea Nitrogen 14 13 Creatinine 0.80 0.66 Est Glomerular > 60 Filtrat Rate mL/min Glucose Level 115 154 Calcium Level 8.9 8.3 L Total Bilirubin 3.9 H Direct Bilirubin 1.20 H Indirect Bilirubin 2.7 H Aspartate Amino 624 H Transf (AST/SGOT) Alanine 188 H Aminotransferase (AL T/SGPT) Alkaline Phosphatase 170 H Total Protein 8.0 Albumin 3.6 3.2 L Globulin 4.40 H Albumin/Globulin 0.81 Ratio Lipase 273 Osmolality 241 L Uric Acid 2.0 L Urine Color KRISTOPHER Urine Clarity CLEAR Urine pH 7.0 Urine Specific 1.014 [place] Urine Ketones NEGATIVE Urine Nitrite NEGATIVE Urine Bilirubin 1+ H Urine Urobilinogen 2+ H Urine Leukocyte NEGATIVE Esterase Urine Hemoglobin NEGATIVE Urine Osmolality 394 Urine Random Sodium 22 L Urine Random 52.1 Potassium Urine Glucose NEGATIVE Urine Total Protein NEGATIVE Phosphorus Level 2.6 Hepatitis B Surface NEGATIVE Antigen Hepatitis B Core NEGATIVE Total Antibody Hepatitis C Antibody REACTIVE H Test 08/19/18 23:01 08/20/18 01:24 08/20/18 04:22 Sodium Level 123 L 126 L 127 L Potassium Level 3.7 3.9 3.7 Chloride Level 81 L 84 L 89 L Carbon Dioxide Level 27 30 30 Anion Gap 15 H 12 8 Blood Urea Nitrogen 13 12 11 Creatinine 0.73 0.71 0.68 Glucose Level 100 # 94 95 Calcium Level 8.4 8.8 8.8 Phosphorus Level 2.6 2.5 Albumin 3.6 3.9 3.7 Est Glomerular > 60 Filtrat Rate mL/min Magnesium Level 2.1 Total Bilirubin 2.7 H Direct Bilirubin 0.90 #H Indirect Bilirubin 1.8 H Aspartate Amino 404 H Transf (AST/SGOT) Alanine 153 H Aminotransferase (AL T/SGPT) Alkaline Phosphatase 184 H Total Protein 7.5 Globulin 3.80 H Albumin/Globulin 0.97 Ratio PRINCE PENA MD Aug 20, 2018 09:34
[2018-08-20] MEDS: SOD CHLORIDE 0.9% 1,000 ML IV SCH ×2 (11:22→20:51)
[2018-08-20] MEDS ORDERED: SALINE 0.65% 45 ML NAS SPRAY NASAL PRN (16:00)
--- NOTE | 2018-08-20 18:25 | NUR ---
Report called to JESSE Mims. VSS and no c/o of pain at time of transfer. Patient attempted to have a BM prior to leaving but was found straining and RN requested patient not continue forcing it, endorsed to Prasanna. Belongings sent with patient.
--- NOTE | 2018-08-20 18:30 | NUR ---
Patient arrived to unit from ICU in stable condition. VSS, SR on monitor. AAOx4, denies pain or any distress.
[2018-08-20] MEDS: FLUTICASONE 0.05% 16 GM NAS SPRAY NASAL SCH (18:33)
--- NOTE | 2018-08-20 19:35 | NUR ---
Report given to Inés MOLINA. Patient stated he felt constipated. Transfer skin photos not yet done. Endorsed to oncoming RN.
[2018-08-21] VITALS (10 sets, daily range): BP systolic 114–144; BP diastolic 66–82; PULSE 75–105; RESP 17–20
[2018-08-21] MEDS: PIPER-TAZO 2.25 GM (PMX) 50 ML IVPB SCH ×3 (06:08→21:34)
--- NOTE | 2018-08-21 07:50 | NUR ---
Pt. was stable this shift, no distress noted, no complaints of pain, SR/low ST,normal V/S, slept good.
--- NOTE | 2018-08-21 09:08 | PN ---
Date/Time of Note Date/Time of Note DATE: 08/21/18 TIME: 09:08 Assessment/Plan VTE Prophylaxis Risk score (from [facility])>0 risk: 3 SCD applied (from [facility] [place] Yes Pharmacological prophylaxis: NA/contraindicated Pharm contraindication: thrombocytopenia Lines/Catheters IV [facility]ter [facility] (from [facility]): Peripheral IV Assessment/Plan Assessment/Plan 1. Acute moderate hyponatremia- resolved - Nephrology on board and appreciate recommendations. D/c fluids. - most likely hypovolemic hyponatremia - d/c hctz as contributed to hyponatremia 2. Elevated LFT- improving - discussed need for etoh cessation given AST>ALT pattern consistent with etoh hepatitis - Hep C Ab positives and further studies ordered. patient denies IVDU, blood transfusions, or tattoos so may be false positives - RUQ US results appreciated but pt denies any symptoms - has outpatient GI follow up 3. Alcoholic hepatitis- improving - AST>ALT which is consistent with alcoholic etiology 4. Alcoholic liver cirrhosis - had outpatient follow up scheduled for evaluation - no ascites appreciated and will hold off on diuretics in setting of hyponatremia - discussed etoh cessation 5. Essential tremor - patients last etoh drink was 2 weeks ago but will still monitor for DT - ativan prn 6. Ringing in ear - congestion appreciate - flonase on board 7. Hep C - will order further studies 8. Anemia of chronic disease - no acute bleeding appreciated 9. Disposition - Na levels normalized. new essential tremor today and will monitor for improvement. If no issues, will d/c in am Result Diagram: 08/21/18 0508 08/21/18 0508 Results 24hrs Laboratory Tests Test 08/20/18 10:02 08/20/18 13:56 08/21/18 05:08 Sodium Level 130 L 132 L 135 Potassium Level 3.7 4.3 4.0 Chloride Level 90 L 90 L 95 L Carbon Dioxide Level 27 29 27 Anion Gap 13 13 13 Blood Urea Nitrogen 10 10 9 Creatinine 0.66 0.65 0.66 Glucose Level 108 106 96 Calcium Level 9.2 9.0 8.9 Phosphorus Level 2.2 L 2.6 Albumin 3.9 3.9 3.6 White Blood Count 4.8 # Red Blood Count 3.14 L Hemoglobin 10.7 L Hematocrit 30.7 L Mean Corpuscular Volume 97.8 Mean Corpuscular Hemoglobin 34.1 H Mean Corpuscular Hemoglobin Concent 34.9 Red Cell Distribution Width 14.3 Platelet Count 94 L Mean Platelet Volume 10.0 Immature Granulocytes % 0.200 Neutrophils % Lymphocytes % Monocytes % Eosinophils % Basophils % Nucleated Red Blood Cells % 0.0 Immature Granulocytes # 0.010 Neutrophils # Lymphocytes # Monocytes # Eosinophils # Basophils # Nucleated Red Blood Cells # Est Glomerular Filtrat Rate mL/min > 60 Magnesium Level 2.3 Total Bilirubin 1.1 Direct Bilirubin 0.20 # Indirect Bilirubin 0.9 Aspartate Amino Transf (AST/SGOT) 259 H Alanine Aminotransferase (ALT/SGPT) 134 H Alkaline Phosphatase 184 H Total Protein 7.4 Globulin 3.80 H Albumin/Globulin Ratio 0.94 Subjective 24 Hr Interval Summary Free Text/Dictation Patient doing well and states visual changes and headache has resolved. Discussed need for etoh cessation to prevent progression of cirrhosis. Patient noted with essential tremors in hands bilaterally. Last alcoholic drink was a lmost 2 weeks ago. Exam/Review of Systems Exam Vitals Vital Signs Date Temp Pulse Resp B/P (MAP) Pulse Ox O2 O2 Flow FiO2 Time Delivery Rate 08/21/18 94 08:01 08/21/18 98.6 18 139/80 99 07:24 (99) 08/20/18 Room Air 18:01 Intake and Output 08/20/18 08/20/18 08/21/18 1515:00 23:00 07:00 IntakeIntake Total 1700 ml 225 ml 1130 ml OutputOutput Total 1950 ml 1550 ml BalanceBalance -250 ml 225 ml -420 ml Exam General: Patient is laying in bed, no acute distress. answering questions appropriately Neck: supple Respiratory: Clear to auscultation bilaterally. no wheezing or rhonchi Cardiovascular: S1, S2, regular rate and rhythm, no obvious murmurs Gastrointestinal: soft, non-tender to palpation, protuberant, bowel sounds heard. Skin: lesion on nose and left cheek. no discharge or drainage Ext: no cyanosis, clubbing or edema. dry mucous membranes. Neuro: mild essential tremor bilaterally Results Results 24hrs Laboratory Tests Test 08/20/18 10:02 08/20/18 13:56 08/21/18 05:08 Sodium Level 130 L 132 L 135 Potassium Level 3.7 4.3 4.0 Chloride Level 90 L 90 L 95 L Carbon Dioxide Level 27 29 27 Anion Gap 13 13 13 Blood Urea Nitrogen 10 10 9 Creatinine 0.66 0.65 0.66 Glucose Level 108 106 96 Calcium Level 9.2 9.0 8.9 Phosphorus Level 2.2 L 2.6 Albumin 3.9 3.9 3.6 White Blood Count 4.8 # Red Blood Count 3.14 L Hemoglobin 10.7 L Hematocrit 30.7 L Mean Corpuscular Volume 97.8 Mean Corpuscular Hemoglobin 34.1 H Mean Corpuscular Hemoglobin Concent 34.9 Red Cell Distribution Width 14.3 Platelet Count 94 L Mean Platelet Volume 10.0 Immature Granulocytes % 0.200 Neutrophils % Lymphocytes % Monocytes % Eosinophils % Basophils % Nucleated Red Blood Cells % 0.0 Immature Granulocytes # 0.010 Neutrophils # Lymphocytes # Monocytes # Eosinophils # Basophils # Nucleated Red Blood Cells # Est Glomerular Filtrat Rate mL/min > 60 Magnesium Level 2.3 Total Bilirubin 1.1 Direct Bilirubin 0.20 # Indirect Bilirubin 0.9 Aspartate Amino Transf (AST/SGOT) 259 H Alanine Aminotransferase (ALT/SGPT) 134 H Alkaline Phosphatase 184 H Total Protein 7.4 Globulin 3.80 H Albumin/Globulin Ratio 0.94 Medications Medication Current Medications Lisinopril (Zestril) 30 mg DAILY PO ; Start 08/20/18 at 09:00 Paroxetine HCl (Paxil) 20 mg DAILY PO Last administered on 08/20/18at 08:24; Admin Dose 20 MG; Start 08/20/18 at 09:00 Ondansetron HCl (Zofran Inj) 4 mg Q6H PRN IV nausea; Start 08/19/18 at 15:30 Albuterol (Proventil 0.083% (Neb)) 2.5 mg Q2H RESP THERAPY PRN NEB shortness of breath; Start 08/19/18 at 15:30 Docusate Sodium (Colace) 100 mg Q12H PRN PO constipation; Start 08/19/18 at 15:30 Magnesium Hydroxide (Milk Of Mag) 30 ml DAILY PRN PO constipation Last administered on 08/20/18at 21:04; Admin Dose 30 ML; Start 08/19/18 at 15:30 Sodium Chloride 1,000 ml @ 75 mls/hr [id number] IV Last administered on 08/20/18at 20:51; Admin Dose 75 MLS/HR; Start 08/19/18 at 17:00 Piperacillin Sod/ Tazobactam Sod 50 ml @ 100 mls/hr Q8 IVPB Last administered on 08/21/18at 06:08; Admin Dose 100 MLS/HR; Start 08/19/18 at 17:30 Influenza Virus Vaccine Quadrival (Fluzone) 0.5 ml ONCE ONCE IM* ; Start 08/21/18 at 10:00; Stop 08/21/18 at 10:01 Sodium Chloride (Deep Sea) 2 spray BID PRN NASAL congestion; Start 08/20/18 at 16:00 Fluticasone Propionate (Flonase 0.05% Nasal) 1 spray BID NASAL ; Start 08/20/18 at 17:00 PRINCE PENA MD Aug 21, 2018 09:08
[2018-08-21] MEDS: PAROXETINE 20 MG TAB PO SCH (09:20)
[2018-08-21] MEDS: FLUTICASONE 0.05% 16 GM NAS SPRAY NASAL SCH ×2 (09:21→21:34)
[2018-08-21] MEDS: LISINOPRIL 10 MG TAB PO SCH (09:22)
[2018-08-21] MEDS ORDERED: LORAZEPAM 2 MG INJ IV PRN (10:00)
[2018-08-21] MEDS ORDERED: INFLUENZA VIRUS VACCINE 0.5 ML (DISPENSING) IM* ONE (10:00)
[2018-08-21] MEDS: SOD CHLORIDE 0.9% 1,000 ML IV SCH (13:50)
--- NOTE | 2018-08-21 13:53 | CONS ---
Assessment/Plan Assessment/Plan Assessment/Plan (Daily) 1. Moderate to severe symptomatic hyponatremia- resolved 2. Liver cirrhosis 3. alcoholic hepatitis 4. Elevated LFTs 5. anemia fo chronic disease 6. Hypoalbuminemia due to liver disease Plan: Na improved to 135 with IVF NS IVF NS - decrease rate to 50 cc /hr then d/c BUN/Cr has been normal will follow up on pt ok for telemetry floor Consultation Date/Type/Reason Admit Date/Time Aug 19, 2018 at 14:43 Initial Consult Date 08/19/18 Requesting Provider: PRINCE PENA MD Date/Time of Note DATE: 08/21/18 TIME: 13:52 Exam/Review of Systems Exam Vitals Vital Signs Date Temp Pulse Resp B/P (MAP) Pulse Ox O2 O2 Flow FiO2 Time Delivery Rate 08/21/18 105 12:01 08/21/18 98.9 18 114/66 98 11:02 (82) 08/20/18 Room Air 18:01 Intake and Output 08/20/18 08/20/18 08/21/18 1515:00 23:00 07:00 IntakeIntake Total 1700 ml 225 ml 1130 ml OutputOutput Total 1950 ml 1550 ml BalanceBalance -250 ml 225 ml -420 ml Results Result Diagram: 08/21/18 0508 08/21/18 0508 Results 24hrs Laboratory Tests Test 08/20/18 13:56 08/21/18 05:08 08/21/18 10:27 Sodium Level 132 L 135 Potassium Level 4.3 4.0 Chloride Level 90 L 95 L Carbon Dioxide Level 29 27 Anion Gap 13 13 Blood Urea Nitrogen 10 9 Creatinine 0.65 0.66 Glucose Level 106 96 Calcium Level 9.0 8.9 Phosphorus Level 2.6 Albumin 3.9 3.6 White Blood Count 4.8 # Red Blood Count 3.14 L Hemoglobin 10.7 L Hematocrit 30.7 L Mean Corpuscular Volume 97.8 Mean Corpuscular Hemoglobin 34.1 H Mean Corpuscular 34.9 Hemoglobin Concent Red Cell Distribution Width 14.3 Platelet Count 94 L Mean Platelet Volume 10.0 Immature Granulocytes % 0.200 Neutrophils % Segmented Neutrophils % (Manual) 53 Band Neutrophils % (Manual) 1 Lymphocytes % Lymphocytes % (Manual) 29 Reactive Lymphocytes % (Manual) 3 H Monocytes % Monocytes % (Manual) 8 Eosinophils % Eosinophils % (Manual) 5 Basophils % Basophils % (Manual) 1 Nucleated Red Blood Cells % 0.0 Immature Granulocytes # 0.010 Neutrophils # Neutrophils # (Manual) 2.5 Band Neutrophils # 0.0 Lymphocytes (Manual) 1.3 Lymphocytes # Reactive Lymphocytes # 0.1 H Monocytes # Monocytes # (Manual) 0.3 Eosinophils # Basophils # Basophils # (Manual) 0.0 Nucleated Red Blood Cells # Platelet Estimate DECREASED Polychromasia 1+ Anisocytosis 1+ Est Glomerular Filtrat > 60 Rate mL/min Magnesium Level 2.3 Total Bilirubin 1.1 Direct Bilirubin 0.20 # Indirect Bilirubin 0.9 Aspartate Amino Transf (AST/SGOT) 259 H Alanine 134 H Aminotransferase (ALT/SGPT) Alkaline Phosphatase 184 H Total Protein 7.4 Globulin 3.80 H Albumin/Globulin Ratio 0.94 Lab Scanned Report REFERENCE LAB Medications Medication Current Medications Lisinopril (Zestril) 30 mg DAILY PO Last administered on 08/21/18at 09:22; Admin Dose 30 MG; Start 08/20/18 at 09:00 Paroxetine HCl (Paxil) 20 mg DAILY PO Last administered on 08/21/18at 09:20; Admin Dose 20 MG; Start 08/20/18 at 09:00 Ondansetron HCl (Zofran Inj) 4 mg Q6H PRN IV nausea; Start 08/19/18 at 15:30 Albuterol (Proventil 0.083% (Neb)) 2.5 mg Q2H RESP THERAPY PRN NEB shortness of breath; Start 08/19/18 at 15:30 Docusate Sodium (Colace) 100 mg Q12H PRN PO constipation; Start 08/19/18 at 15:30 Magnesium Hydroxide (Milk Of Mag) 30 ml DAILY PRN PO constipation Last administered on 08/20/18at 21:04; Admin Dose 30 ML; Start 08/19/18 at 15:30 Sodium Chloride 1,000 ml @ 75 mls/hr [id number] IV Last administered on 08/21/18at 13:50; Admin Dose 75 MLS/HR; Start 08/19/18 at 17:00 Piperacillin Sod/ Tazobactam Sod 50 ml @ 100 mls/hr Q8 IVPB Last administered on 08/21/18at 13:50; Admin Dose 100 MLS/HR; Start 08/19/18 at 17:30 Sodium Chloride (Deep Sea) 2 spray BID PRN NASAL congestion; Start 08/20/18 at 16:00 Fluticasone Propionate (Flonase 0.05% Nasal) 1 spray BID NASAL Last administered on 08/21/18at 09:21; Admin Dose 1 SPRAY; Start 08/20/18 at 17:00 Lorazepam (Ativan) 1 mg Q6H PRN IV anxiety, withdrawal; Start 08/21/18 at 10:00 CORTNEY DANIELS Aug 21, 2018 13:53
[2018-08-22] VITALS: PULSE 100
[2018-08-22 04:00] VITALS: BP 148/85; PULSE 77; PULSE 82; RESP 20
[2018-08-22] MEDS: PIPER-TAZO 2.25 GM (PMX) 50 ML IVPB SCH (06:39)
--- NOTE | 2018-08-22 07:00 | NUR ---
EOSS PATIENT COMPLAINT OF ANXIETY AT BEDTIME AND LORAZEPAM GIVEN ORDERED.HAD A GOOD SLEPT AND NOT IN ANY DISTRESS.
[2018-08-22 07:14] VITALS: BP 152/87; PULSE 85; RESP 18
--- NOTE | 2018-08-22 07:17 | CONS ---
Assessment/Plan Assessment/Plan Assessment/Plan (Daily) 1. Moderate to severe symptomatic hyponatremia- resolved 2. Liver cirrhosis 3. alcoholic hepatitis 4. Elevated LFTs 5. anemia fo chronic disease 6. Hypoalbuminemia due to liver disease Plan: Na improved to 135 with IVF NS IVF NS - decrease rate to 50 cc /hr then d/c BUN/Cr has been normal will follow up on pt ok for telemetry floor Consultation Date/Type/Reason Admit Date/Time Aug 19, 2018 at 14:43 Initial Consult Date 08/19/18 Requesting Provider: PRINCE PENA MD Date/Time of Note DATE: 08/22/18 TIME: 07:14 Exam/Review of Systems Exam Vitals Vital Signs Date Temp Pulse Resp B/P (MAP) Pulse Ox O2 O2 Flow FiO2 Time Delivery Rate 08/22/18 77 04:00 08/22/18 98.7 20 148/85 96 Room Air 04:00 (106) Intake and Output 08/21/18 08/21/18 08/22/18 1515:00 23:00 07:00 IntakeIntake Total 1250 ml 800 ml OutputOutput Total 750 ml 1150 ml BalanceBalance 500 ml -350 ml Results Result Diagram: 08/22/18 0528 08/22/18 0528 Results 24hrs Laboratory Tests Test 08/21/18 10:27 08/22/18 05:28 Lab Scanned Report REFERENCE LAB White Blood Count 5.0 Red Blood Count 2.96 L Hemoglobin 10.2 L Hematocrit 29.6 L Mean Corpuscular Volume 100.0 Mean Corpuscular Hemoglobin 34.5 H Mean Corpuscular Hemoglobin Concent 34.5 Red Cell Distribution Width 14.7 H Platelet Count 96 L Mean Platelet Volume 9.7 Immature Granulocytes % 0.200 Neutrophils % 41.1 Lymphocytes % 33.5 Monocytes % 19.0 H Eosinophils % 4.2 Basophils % 2.0 Nucleated Red Blood Cells % 0.0 Immature Granulocytes # 0.010 Neutrophils # 2.1 Lymphocytes # 1.7 Monocytes # 1.0 H Eosinophils # 0.2 Basophils # 0.1 Nucleated Red Blood Cells # 0.0 Sodium Level 135 Potassium Level 3.8 Chloride Level 100 Carbon Dioxide Level 25 Anion Gap 10 Blood Urea Nitrogen 10 Creatinine 0.59 L Glucose Level 94 Calcium Level 9.3 Phosphorus Level 3.6 Magnesium Level 2.1 Albumin 3.4 Medications Medication Current Medications Lisinopril (Zestril) 30 mg DAILY PO Last administered on 08/21/18at 09:22; Admin Dose 30 MG; Start 08/20/18 at 09:00 Paroxetine HCl (Paxil) 20 mg DAILY PO Last administered on 08/21/18at 09:20; Admin Dose 20 MG; Start 08/20/18 at 09:00 Ondansetron HCl (Zofran Inj) 4 mg Q6H PRN IV nausea; Start 08/19/18 at 15:30 Albuterol (Proventil 0.083% (Neb)) 2.5 mg Q2H RESP THERAPY PRN NEB shortness of breath; Start 08/19/18 at 15:30 Docusate Sodium (Colace) 100 mg Q12H PRN PO constipation; Start 08/19/18 at 15:30 Magnesium Hydroxide (Milk Of Mag) 30 ml DAILY PRN PO constipation Last administered on 08/20/18at 21:04; Admin Dose 30 ML; Start 08/19/18 at 15:30 Piperacillin Sod/ Tazobactam Sod 50 ml @ 100 mls/hr Q8 IVPB Last administered on 08/22/18at 06:39; Admin Dose 100 MLS/HR; Start 08/19/18 at 17:30 Sodium Chloride (Deep Sea) 2 spray BID PRN NASAL congestion; Start 08/20/18 at 16:00 Fluticasone Propionate (Flonase 0.05% Nasal) 1 spray BID NASAL Last administered on 08/21/18at 21:34; Admin Dose 1 SPRAY; Start 08/20/18 at 17:00 Lorazepam (Ativan) 1 mg Q6H PRN IV anxiety, withdrawal Last administered on 08/21/18at 22:11; Admin Dose 1 MG; Start 08/21/18 at 10:00 CORTNEY DANIELS Aug 22, 2018 07:17
[2018-08-22 08:01] VITALS: PULSE 71
--- NOTE | 2018-08-22 08:19 | PN ---
Date/Time of Note Date/Time of Note DATE: 08/22/18 TIME: 08:19 Assessment/Plan VTE Prophylaxis Risk score (from [facility] [place])>0 risk: 2 SCD applied (from [facility] [place]): Yes Pharmacological prophylaxis: NA/contraindicated Pharm contraindication: thrombocytopenia Lines/Catheters IV [facility]ter Type (from [facility] [place] Urinary Cath still in place: No Assessment/Plan Assessment/Plan 1. Acute moderate hyponatremia- resolved - Nephrology on board and appreciate recommendations. Off fluids - most likely hypovolemic hyponatremia - d/c hctz as contributed to hyponatremia 2. Elevated LFT- improving - Will need to follow up with Gi specialist as outpatient - discussed need for etoh cessation given AST>ALT pattern consistent with etoh hepatitis - Hep C Ab false positives as Hep C RNA negative - RUQ US results appreciated but pt denies any symptoms 3. Alcoholic hepatitis- resolving - AST>ALT which is consistent with alcoholic etiology - ETOH cessation counseling offered 4. Alcoholic liver cirrhosis - had outpatient follow up scheduled for evaluation - no ascites appreciated - discussed etoh cessation 5. Essential tremor- resolved - patients last etoh drink was 2 weeks ago but will still monitor for DT - ativan prn 6. Ringing in ear- improved - congestion appreciate - flonase on board 7. Hep C - studies noted and appears false positives 8. Anemia of chronic disease - no acute bleeding appreciated 9. Disposition - Patient is medically stable for discharge home Result Diagram: 08/22/1828 08/22/18 0528 Results 24hrs Laboratory Tests Test 08/21/18 10:27 08/22/18 05:28 Lab Scanned Report REFERENCE LAB White Blood Count 5.0 Red Blood Count 2.96 L Hemoglobin 10.2 L Hematocrit 29.6 L Mean Corpuscular Volume 100.0 Mean Corpuscular Hemoglobin 34.5 H Mean Corpuscular Hemoglobin Concent 34.5 Red Cell Distribution Width 14.7 H Platelet Count 96 L Mean Platelet Volume 9.7 Immature Granulocytes % 0.200 Neutrophils % 41.1 Lymphocytes % 33.5 Monocytes % 19.0 H Eosinophils % 4.2 Basophils % 2.0 Nucleated Red Blood Cells % 0.0 Immature Granulocytes # 0.010 Neutrophils # 2.1 Lymphocytes # 1.7 Monocytes # 1.0 H Eosinophils # 0.2 Basophils # 0.1 Nucleated Red Blood Cells # 0.0 Sodium Level 135 Potassium Level 3.8 Chloride Level 100 Carbon Dioxide Level 25 Anion Gap 10 Blood Urea Nitrogen 10 Creatinine 0.59 L Glucose Level 94 Calcium Level 9.3 Phosphorus Level 3.6 Magnesium Level 2.1 Albumin 3.4 Subjective 24 Hr Interval Summary Free Text/Dictation Patient doing well and states he's feeling better. No longer with essential tremors. No acute overnight events. Exam/Review of Systems Exam Vitals Vital Signs Date Temp Pulse Resp B/P (MAP) Pulse Ox O2 O2 Flow FiO2 Time Delivery Rate 08/22/18 98.2 85 18 152/87 99 07:14 (108) 08/22/18 Room Air 04:00 Intake and Output 08/21/18 08/21/18 08/22/18 1515:00 23:00 07:00 IntakeIntake Total 1250 ml 800 ml OutputOutput Total 750 ml 1150 ml BalanceBalance 500 ml -350 ml Exam General: Patient is laying in bed, no acute distress. answering questions appropriately Neck: supple Respiratory: Clear to auscultation bilaterally. no wheezing or rhonchi Cardiovascular: S1, S2, regular rate and rhythm, no obvious murmurs Gastrointestinal: soft, non-tender to palpation, protuberant, bowel sounds heard. Skin: lesion on nose and left cheek. no discharge or drainage Ext: no cyanosis, clubbing or edema. dry mucous membranes. Neuro: no tremor appreciated. no focal deficits noted Results Results 24hrs Laboratory Tests Test 08/21/18 10:27 08/22/18 05:28 Lab Scanned Report REFERENCE LAB White Blood Count 5.0 Red Blood Count 2.96 L Hemoglobin 10.2 L Hematocrit 29.6 L Mean Corpuscular Volume 100.0 Mean Corpuscular Hemoglobin 34.5 H Mean Corpuscular Hemoglobin Concent 34.5 Red Cell Distribution Width 14.7 H Platelet Count 96 L Mean Platelet Volume 9.7 Immature Granulocytes % 0.200 Neutrophils % 41.1 Lymphocytes % 33.5 Monocytes % 19.0 H Eosinophils % 4.2 Basophils % 2.0 Nucleated Red Blood Cells % 0.0 Immature Granulocytes # 0.010 Neutrophils # 2.1 Lymphocytes # 1.7 Monocytes # 1.0 H Eosinophils # 0.2 Basophils # 0.1 Nucleated Red Blood Cells # 0.0 Sodium Level 135 Potassium Level 3.8 Chloride Level 100 Carbon Dioxide Level 25 Anion Gap 10 Blood Urea Nitrogen 10 Creatinine 0.59 L Glucose Level 94 Calcium Level 9.3 Phosphorus Level 3.6 Magnesium Level 2.1 Albumin 3.4 Medications Medication Current Medications Lisinopril (Zestril) 30 mg DAILY PO Last administered on 08/21/18at 09:22; Admin Dose 30 MG; Start 08/20/18 at 09:00 Paroxetine HCl (Paxil) 20 mg DAILY PO Last administered on 08/21/18at 09:20; Admin Dose 20 MG; Start 08/20/18 at 09:00 Ondansetron HCl (Zofran Inj) 4 mg Q6H PRN IV nausea; Start 08/19/18 at 15:30 Albuterol (Proventil 0.083% (Neb)) 2.5 mg Q2H RESP THERAPY PRN NEB shortness of breath; Start 08/19/18 at 15:30 Docusate Sodium (Colace) 100 mg Q12H PRN PO constipation; Start 08/19/18 at 15:30 Magnesium Hydroxide (Milk Of Mag) 30 ml DAILY PRN PO constipation Last administered on 08/20/18at 21:04; Admin Dose 30 ML; Start 08/19/18 at 15:30 Piperacillin Sod/ Tazobactam Sod 50 ml @ 100 mls/hr Q8 IVPB Last administered on 08/22/18at 06:39; Admin Dose 100 MLS/HR; Start 08/19/18 at 17:30 Sodium Chloride (Deep Sea) 2 spray BID PRN NASAL congestion; Start 08/20/18 at 16:00 Fluticasone Propionate (Flonase 0.05% Nasal) 1 spray BID NASAL Last administered on 08/21/18at 21:34; Admin Dose 1 SPRAY; Start 08/20/18 at 17:00 Lorazepam (Ativan) 1 mg Q6H PRN IV anxiety, withdrawal Last administered on 08/21/18at 22:11; Admin Dose 1 MG; Start 08/21/18 at 10:00 PRINCE PENA MD Aug 22, 2018 08:19
[2018-08-22] MEDS: LISINOPRIL 10 MG TAB PO SCH (09:14)
[2018-08-22] MEDS: PAROXETINE 20 MG TAB PO SCH (09:14)
[2018-08-22] MEDS: FLUTICASONE 0.05% 16 GM NAS SPRAY NASAL SCH (09:14)
[2018-08-22] MEDS ORDERED: FLUT16SP17 NASAL (10:11)
--- NOTE | 2018-08-22 10:17 | PDOCDIS ---
Discharge Instructions DIAGNOSIS Discharge Diagnosis 1. Acute moderate hyponatremia- resolved 2. Alcoholic hepatitis- resolving 3. Alcoholic liver cirrhosis 4. Allergic rhinitis 5. Ringing in ear 6. Anemia of chronic disease CONDITION [id number] Patient Condition: [id number] Stable HOME CARE INSTRUCTIONS: [id number] Diet Instructions: [id number] Low Fat /Cholesterol FOLLOW UP/APPOINTMENTS Follow-up Plan 1. Follow up primary care physician in 1 week 2. Follow up with the specialist for your liver as previously scheduled 3. Stop taking hydrochlorothiazide as this contributed to your dehydration and low sodium levels 4. Continue taking Lisinopril for blood pressure control 5. It is important that you do not drink any alcohol to prevent the progression of your liver cirrhosis. Your liver enzymes were improving during the course of hospitalization and will continue to improve if you do not drink alcohol 6. Use Flonase as needed for nasal congestion and ear congestion 7. If symptoms return or worsen, please go to your closest emergency department PRINCE PENA MD Aug 22, 2018 10:17
[2018-08-22 11:01] VITALS: BP 163/97; PULSE 78; RESP 18
--- NOTE | 2018-08-22 11:42 | NUR ---
pt to discharge home today, piv dcd intact, tele and patches removed f\u instructions given pt verb understanding
--- NOTE | 2018-08-22 11:43 | NUR ---
pt stable , vss afeb ra sats wnl tele sr no c\o
--- NOTE | 2018-08-22 16:10 | DS ---
Date/Time of Note Date/Time of Note DATE: 08/22/18 TIME: 16:04 Discharge Summary Admission/Discharge Info Admit Date/Time Aug 19, 2018 at 14:43 Discharge Date/Time Aug 22, 2018 at 12:58 Discharge Diagnosis 1. Acute moderate hyponatremia- resolved 2. Alcoholic hepatitis- resolving 3. Alcoholic liver cirrhosis 4. Allergic rhinitis 5. Ringing in ear 6. Anemia of chronic disease Patient Condition: Stable Consults Nephrology- Dr. Baumann Procedures PROCEDURE: Right upper quadrant ultrasound CLINICAL INDICATION: Abnormal liver function TECHNIQUE: Multiple real-time images were acquired of the patient's abdomen and right retroperitoneum utilizing a high resolution transducer. COMPARISON: 05/12/2016 FINDINGS: The liver is increased in echogenicity and measures 18.3 cm. No focal hepatic masses are seen. The gallbladder is physiologically distended. There is new sludge identified within the gallbladder. There is mild thickening of the gallbladder wall. No pericholecystic fluid is seen. The intra and extrahepatic bile ducts are normal in caliber. The common bile duct measures 2.4 mm. Pancreas is not visualized due to overlying bowel gas. Survey views of the right kidney demonstrate no evidence of hydronephrosis or renal calculi. The right kidney measures 10.8 cm. There is a 9 mm right renal cyst. IMPRESSION: 1. New sludge is noted in the gallbladder. There is mild thickening of the gallbladder wall. The right clinical setting this may suggest early cholecystitis. 2. No biliary duct dilatation. 3. Fatty change of the liver. 4. Pancreas not visualized RPTAT: .Sudheer Merritt MD, Date Time Electronically viewed and signed by .Sudheer Merritt MD, on 08/19/2018 15:56 PROCEDURE: XR Chest AP portable CLINICAL INDICATION: Low sodium, rule out pulmonary process TECHNIQUE: An AP portable radiograph of the chest was submitted. COMPARISON: None. FINDINGS: Support Hardware: None Cardiovascular: The cardiovascular silhouette appears unremarkable. Lung Delgado: The lung delgado appear clear with no nodule, alveolar infiltrate, or interstitial prominence evident. Pleural Spaces: No pneumothorax or pleural effusion is identified. Osseous Structures: The osseous structures appear intact. Soft Tissues: The soft tissues appear generous. IMPRESSION: Unremarkable portable chest. Physician Erika Date Time Electronically viewed and signed by Cristóbal Decker Physician on 08/19/2018 14:29 Hx of Present Illness 53 yo M with PMH HTN and alcoholic liver cirrhosis presented to ED for evaluation of general malaise and Na 117. Patient states he has not been feeling well for some time but has worsened over the past couple days. His PCP ordered lab work and was told to go to the ED due to findings of Na 117. Patient states he has experiencing hyponatremia 1-2 years ago. Patient admits to mild headache with slightly blurred vision and ringing in left ear but denies any loss of vision, neuropathy, dizziness, loss of consciousness, nausea, vomiting, congestion. 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 Last etoh use was 1 week ago. Denies any chest pain, shortness of breath, palpitations, wheezing, or cough. Hospital Course Patient was admitted to ICU for close monitor of neurological status given moderate to severely low sodium levels. Patient was started on fluids and Na levels were monitored. Headache and blurred vision improved as sodium levels improved. Patient was also found to have elevated LFT consistent with alcoholic hepatitis. RUQ US was performed that showed early cholecystitis but denied any GI pain or issues with PO intake. Patients sodium levels normalized and LFT improved significantly. Alcohol cessation counseling was provided and patients presenting symptoms improved significantly. On day of discharge patients vitals and physical exam were stable. Patient was discharged home in good condition. He was instructed to follow up with PCP and GI specialist as outpatient. Home Meds Active Scripts Fluticasone Propionate* (Fluticasone Propionate* Nasal) 50 Mcg/[place] - 16 Gm [place].susp, 1 SPRAY NASAL BID for 7 Days, #1 BOTTLE 6 Refills Prov:PRINCE PENA MD 08/22/18 Reported Medications Lisinopril* (Lisinopril*) 30 Mg Tablet, 30 MG PO DAILY, #30 TAB 08/19/18 Paroxetine Hcl* (Paxil*) 20 Mg Tablet, 20 MG PO DAILY, TAB 08/19/18 Discontinued Reported Medications Losartan Potassium* (Losartan Potassium*) 100 Mg Tablet, 100 MG PO DAILY, TAB 08/19/18 Hydrochlorothiazide* (Hydrochlorothiazide*) 25 Mg Tab, 25 MG PO DAILY, #30 TAB 08/19/18 Discontinued Scripts Ibuprofen* (Motrin*) 800 Mg Tab, 800 MG PO Q6H PRN for PAIN AND OR ELEVATED TEMP, #30 TAB Prov:ANDREE KENNEDY 06/24/18 Acetaminophen with Codeine (Acetaminophen-Cod #3 Tablet) 1 Each Tablet, 1 TAB PO Q6H PRN for SEVERE PAIN LEVEL 7-10, #7 TAB Prov:ANDREE KENNEDY 06/24/18 Neomycin/Polymyxin/Hydrocort* (Cortisporin* Otic) 10 Ml Susp, 4 DROP BOTH EARS QID for 7 Days, EA Prov:ANDREE KENNEDY 06/24/18 Amoxicillin/Potassium Clav (Amox-Clav 875-125 mg Tablet) 875-125 mg Tab, 1 TAB PO BID for 10 Days, #20 TAB Prov:ANDREE KENNEDY 06/24/18 Famotidine* (Pepcid*) 20 Mg Tablet, 20 MG PO BID for 4 Days, #30 TAB Prov:KARRI MIDDLETON PA-C 05/12/16 Acetaminophen* (Tylenol*) 325 Mg Tablet, 2 TAB PO Q8 PRN for PAIN AND OR ELEVATED TEMP, #30 TAB Prov:KARRI MIDDLETON PA-C 05/12/16 Paroxetine Hcl* (Paroxetine*) 10 Mg Tablet, 10 MG PO DAILY, #30 TAB Prov:JENARO VASQUEZ MD 03/15/16 Lorazepam* (Lorazepam*) 1 Mg Tablet, 1 MG PO Q8, #10 TAB Prov:JENARO VASQUEZ MD 03/15/16 Ondansetron (Zofran Odt) 4 Mg Tab.rapdis, 4 MG PO QID, #10 Prov:JENARO VASQUEZ MD 03/15/16 Lorazepam* (Lorazepam*) 1 Mg Tablet, 1 MG PO DAILY PRN for ANXIETY, #10 TAB 0 Refills Prov:JANAE TAMEZ PA-C 11/18/15 Ibuprofen* (Motrin*) 600 Mg Tab, 600 MG PO Q6, #20 TAB Prov:ZEFERINO WU MD 10/07/15 Alprazolam* (Alprazolam*) 0.5 Mg Tablet, 0.5 MG PO DAILY PRN for ANXIETY, #5 TAB Prov:CARLIE VILLALBA NP 10/01/15 Zolpidem Tartrate* (Ambien*) 5 Mg Tablet, 5 MG PO HS PRN for INSOMNIA, #10 TAB Prov:CHANTAL LUGO PA-C 09/21/15 Prochlorperazine* (Prochlorperazine*) 10 Mg Tablet, 10 MG PO Q6 PRN for NAUSEA AND/OR VOMITING, #10 TAB Prov:ANGELAPOSTOLOS A. DO 09/06/15 Hydrocodone Bit-Acetaminophen* ([place]*) 7.5-325 Tablet, 2 TAB PO Q4H PRN for PAIN, #20 TAB Prov:LEKKOS,APOSTOLOS A. DO 09/06/15 Hydrocodone Bit-Acetaminophen* ([place]*) 5-325 Mg Tab, 1 TAB PO Q6 PRN for PAIN, #10 TAB Prov:APRIL COOK DO 08/17/15 Follow-up Plan 1. Follow up primary care physician in 1 week 2. Follow up with the specialist for your liver as previously scheduled 3. Stop taking hydrochlorothiazide as this contributed to your dehydration and low sodium levels 4. Continue taking Lisinopril for blood pressure control 5. It is important that you do not drink any alcohol to prevent the progression of your liver cirrhosis. Your liver enzymes were improving during the course of hospitalization and will continue to improve if you do not drink alcohol 6. Use Flonase as needed for nasal congestion and ear congestion 7. If symptoms return or worsen, please go to your closest emergency department Primary Care Provider Care Physician No Primary Time spent on discharge: > 30 minutes Pending Labs Laboratory Tests Test 08/22/18 05:28 White Blood Count 5.0 10^3/ul (4.8-10.8) Red Blood Count 2.96 10^6/ul (4.70-6.10) Hemoglobin 10.2 g/dl (14.0-18.0) Hematocrit 29.6 % (42.0-52.0) Mean Corpuscular Volume 100.0 fl (82.0-101.0) Mean Corpuscular Hemoglobin 34.5 pg (29.0-33.0) Mean Corpuscular Hemoglobin Concent 34.5 g/dl (32.0-37.0) Red Cell Distribution Width 14.7 % (11.5-14.5) Platelet Count 96 10^3/UL (140-415) Mean Platelet Volume 9.7 fl (7.4-10.4) Immature Granulocytes % 0.200 % (0.001-0.429) Neutrophils % 41.1 % (39.0-77.0) Lymphocytes % 33.5 % (15.0-51.0) Monocytes % 19.0 % (0.0-11.0) Eosinophils % 4.2 % (0.0-7.0) Basophils % 2.0 % (0.0-2.0) Nucleated Red Blood Cells % 0.0 /100WBC (0.0-0.0) Immature Granulocytes # 0.010 10^3/ul (0.0-0.031) Neutrophils # 2.1 10^3/ul (1.6-7.5) Lymphocytes # 1.7 10^3/ul (0.8-2.9) Monocytes # 1.0 10^3/ul (0.3-0.9) Eosinophils # 0.2 10^3/ul (0.0-0.5) Basophils # 0.1 10^3/ul (0.0-0.1) Nucleated Red Blood Cells # 0.0 10^3/ul (0.0-0.0) Sodium Level 135 mmol/L (135-144) Potassium Level 3.8 mmol/L (3.5-5.1) Chloride Level 100 mmol/L (97-110) Carbon Dioxide Level 25 mmol/L (21-31) Anion Gap 10 (5-13) Blood Urea Nitrogen 10 mg/dl (7-20) Creatinine 0.59 mg/dl (0.61-1.24) Glucose Level 94 mg/dl (70-220) Calcium Level 9.3 mg/dl (8.4-10.2) Phosphorus Level 3.6 mg/dl (2.5-4.9) Magnesium Level 2.1 mg/dl (1.7-2.5) Albumin 3.4 g/dl (3.3-4.9) PRINCE PENA MD Aug 22, 2018 16:10
== END 2018-08-22 12:58 | disposition home or self-care (01) | DRG 641 ==
LOC: E/R 12:31 → ICU 14:43 → 6WM 08-20 17:51
PROVIDERS: ADMIT Internal Medicine; ATTEND Internal Medicine
DX: E87.1 Hypo-osmolality and hyponatremia (principal); E88.09 Other disorders of plasma-protein metabolism, not elsewhere classified; K70.30 Alcoholic cirrhosis of liver without ascites; K70.10 Alcoholic hepatitis without ascites; D63.8 Anemia in other chronic diseases classified elsewhere; J30.9 Allergic rhinitis, unspecified; H93.11 Tinnitus, right ear; I10 Essential (primary) hypertension; F41.9 Anxiety disorder, unspecified; F10.10 Alcohol abuse, uncomplicated; R74.8 Abnormal levels of other serum enzymes; G25.0 Essential tremor
CPT/HCPCS: 36415; 71045; 76705; 80053; 80069; 81003; 82436; 83690; 83735; 83930; 83935; 84133; 84300; 84560; 85025; 85610; 85730; 86704; 86709; 86803; 87081; 87340; 90686; 93005; 96360; 97161; J2060; J2543; J7030; J7040; P9047

== ENCOUNTER 2018-09-14 01:13 | Emergency (ER) | payer OTHER ==
[~2018-09-14] VITALS: Ht 167.6 cm; Wt 115.8 kg
[~2018-09-14 01:13] MED LIST changes: -ACET1TAB40 PO; -ACET325T33 PO; -ALPR0.5T6 PO; -AMOX1TAB10 PO; -FAMO-96 PO; +FLUT16SP17 NASAL; -HYDR-3498 PO; -HYDR-3720 PO; -IBUP-1542 PO; -IBUP800T48 PO; +LISI30TA47 PO; -LORA1TAB PO; -NPH10OT BOTH EARS; -ONDA4TAB11 PO; +PARO-2 PO; -PARO10TA76 PO; -PROC10TA10 PO; -ZOLP5TAB PO
[2018-09-14 01:18] VITALS: Ht 167.6 cm; Wt 115.8 kg
[2018-09-14] MEDS ORDERED: KETOROLAC 30 MG INJ IV STA (06:56)
[2018-09-14] MEDS ORDERED: IOHEXOL 300MG/ML 150 ML BTL ONE (07:32)
[2018-09-14] MEDS ORDERED: SOD CHLORIDE 0.9% 100 ML ONE (07:32)
[2018-09-14] MEDS ORDERED: ONDANSETRON 4 MG INJ IV STA (07:53)
[2018-09-14] MEDS ORDERED: morphine 4 MG/ML VIAL IV STA (07:53)
[2018-09-14] MEDS ORDERED: NAPR-985 PO (08:21)
[2018-09-14] MEDS ORDERED: METR500T PO (08:21)
[2018-09-14] MEDS ORDERED: CYCL10TA7 PO (08:21)
[2018-09-14] MEDS ORDERED: CIPR500T4 PO (08:21)
[2018-09-14 08:28] VITALS: BP 165/93; PULSE 110; RESP 18
--- NOTE | 2018-09-14 13:24 | ERD ---
ER Documentation Chief Complaint Chief Complaint low back pain x 3 days HPI 53-year-old male presenting with lower back pain times 3 days. He states that he had kidney problems in the past and is concerned that his kidneys are causing his back pain. He states his pain does occur with movement and is also complaining of 3 days of abdominal pain. He had no changes in urination or vomit. Denies any fevers or vomiting. Denies any hematuria or bloody stools. Medical history of hypertension. NKDA. Surgical history denies. Social history denies. ROS All systems reviewed and are negative except as per history of present illness. Medications Home Meds Active Scripts Cyclobenzaprine Hcl* (Cyclobenzaprine Hcl*) 10 Mg Tablet, 10 MG PO TID, #15 TAB Prov:TANGELA KIMBALL PA-C 09/14/18 Naproxen* (Naprosyn*) 500 Mg Tablet, 500 MG PO BID PRN for PAIN AND/OR INFLAMMATION, #30 TAB Prov:TANGELA KIMBALL PA-C 09/14/18 Metronidazole* (Flagyl*) 500 Mg Tablet, 500 MG PO TID for 7 Days, TAB Prov:TANGELA KIMBALL PA-C 09/14/18 Ciprofloxacin Hcl* (Ciprofloxacin Hcl*) 500 Mg Tablet, 500 MG PO BID for 7 Days, TAB Prov:TANGELA KIMBALL PA-C 09/14/18 Fluticasone Propionate* (Fluticasone Propionate* Nasal) 50 Mcg/[place] - 16 Gm [place].susp, 1 SPRAY NASAL BID for 7 Days, #1 BOTTLE 6 Refills Prov:PRINCE PENA MD 08/22/18 Reported Medications Lisinopril* (Lisinopril*) 30 Mg Tablet, 30 MG PO DAILY, #30 TAB 08/19/18 Paroxetine Hcl* (Paxil*) 20 Mg Tablet, 20 MG PO DAILY, TAB 08/19/18 Allergies Allergies: Coded Allergies: No Known Allergy (Unverified , 08/19/18) PMhx/Soc History of Surgery: No Anesthesia Reaction: No Hx 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 Disorder: No Hx Respiratory Disorders: No Hx Cardiac Disorders: Yes (HTN) Hx Psychiatric Problems: No Hx Miscellaneous Medical Probl: Yes (See note) Hx Alcohol Use: Yes (Last drink 8 days ago; 12-18 beers/day) Hx Substance Use: No Hx Tobacco Use: No Smoking Status: Never smoker FmHx Family History: No diabetes, No coronary disease, No other Physical Exam Vitals Vital Signs Date Temp Pulse Resp B/P (MAP) Pulse Ox O2 O2 Flow FiO2 Time Delivery Rate 09/14/18 98.4 110 18 165/93 98 Room Air 08:28 (117) 09/14/18 98.4 90 18 155/77 97 01:18 (103) Physical Exam GENERAL: The patient is well-appearing, well-nourished, in no acute distress HEENT: Atraumatic. Conjunctivae are pink. Pupils equal, round, and reactive to light. There is no scleral icterus. Tympanic membranes clear bilaterally. Oropharynx clear. CHEST: Clear to auscultation bilaterally. There are no rales, wheezes or rhonchi. HEART: Regular rate and rhythm. No murmurs, clicks, rubs or gallops. No S3 or S4. ABDOMEN: Active bowel sounds. No distention. No organomegaly. Tender to palpation generalized to the abdomen region with no localized pain. BACK: No midline or flank tenderness. Tender palpation over lower paraspinous m uscles. No midline tenderness EXTREMITIES: Equal pulses bilaterally. There is no peripheral clubbing, cyanosis or edema. No focal swelling or erythema. Full range of motion. Grossly neurovascularly intact. NEUROLOGIC: Alert and oriented. Cranial nerves II through XII intact. Motor strength in all 4 extremities with 5 out of 5 strength. Sensation grossly intact. Normal speech and gait. Babinski negative. DTR 2+ throughout. SKIN: There is no apparent rash or petechiae. The skin is warm and dry. Result Diagram: 09/14/1842 09/14/18 0642 Results 24 hrs Laboratory Tests Test 09/14/18 06:42 09/14/18 06:52 White Blood Count 6.0 10^3/ul Red Blood Count 4.11 10^6/ul Hemoglobin 13.6 g/dl Hematocrit 40.1 % Mean Corpuscular Volume 97.6 fl Mean Corpuscular Hemoglobin 33.1 pg Mean Corpuscular Hemoglobin Concent 33.9 g/dl Red Cell Distribution Width 14.5 % Platelet Count 152 10^3/UL Mean Platelet Volume 9.7 fl Immature Granulocytes % 0.200 % Neutrophils % 58.8 % Lymphocytes % 29.4 % Monocytes % 9.5 % Eosinophils % 0.3 % Basophils % 1.8 % Nucleated Red Blood Cells % 0.0 /100WBC Immature Granulocytes # 0.010 10^3/ul Neutrophils # 3.5 10^3/ul Lymphocytes # 1.8 10^3/ul Monocytes # 0.6 10^3/ul Eosinophils # 0.0 10^3/ul Basophils # 0.1 10^3/ul Nucleated Red Blood Cells # 0.0 10^3/ul Sodium Level 140 mmol/L Potassium Level 4.7 mmol/L Chloride Level 105 mmol/L Carbon Dioxide Level 26 mmol/L Anion Gap 9 Blood Urea Nitrogen 10 mg/dl Creatinine 0.54 mg/dl Est Glomerular Filtrat Rate mL/min > 60 mL/min Glucose Level 122 mg/dl Calcium Level 9.5 mg/dl Total Bilirubin 1.4 mg/dl Direct Bilirubin 0.00 mg/dl Indirect Bilirubin 1.4 mg/dl Aspartate Amino Transf (AST/SGOT) 185 IU/L Alanine Aminotransferase (ALT/SGPT) 67 IU/L Alkaline Phosphatase 212 IU/L Total Protein 9.2 g/dl Albumin 4.1 g/dl Globulin 5.10 g/dl Albumin/Globulin Ratio 0.80 Lipase 352 U/L Urine Color KRISTOPHER Urine Clarity CLOUDY Urine pH 6.0 Urine Specific [place] 1.021 Urine Ketones NEGATIVE mg/dL Urine Nitrite NEGATIVE mg/dL Urine Bilirubin NEGATIVE mg/dL Urine Urobilinogen 1+ mg/dL Urine Leukocyte Esterase NEGATIVE [place]/ul Urine Microscopic RBC 55 /HPF Urine Microscopic WBC 63 /HPF Urine Squamous Epithelial Cells FEW /HPF Urine Mucus FEW /HPF Urine Hemoglobin 1+ mg/dL Urine Glucose NEGATIVE mg/dL Urine Total Protein 1+ mg/dl Current Medications Medications Dose Sig/Luis Start Time Status Last (Trade) Ordered Route PRN Stop Time Admin Dose Reason Admin Ketorolac 30 mg ONCE STAT 09/14/18 DC 09/14/18 Tromethamine IV 06:56 07:03 (Toradol) 09/14/18 06:57 IV Flush 10 ml STK-MED 09/14/18 DC 09/14/18 (NS 10 ml) ONCE .ROUTE 07:32 07:41 09/14/18 07:33 Sodium 100 ml @ ud STK-MED 09/14/18 DC 09/14/18 Chloride ONCE .ROUTE 07:32 07:41 09/14/18 07:33 Iohexol 150 ml STK-MED 09/14/18 DC 09/14/18 (Omnipaque ONCE .ROUTE 07:32 07:42 300mg/ ml) 09/14/18 07:33 Morphine 4 mg ONCE STAT 09/14/18 DC 09/14/18 Sulfate IV 07:53 08:00 (morphine) 09/14/18 07:55 Ondansetron 2 mg ONCE STAT 09/14/18 DC 09/14/18 HCl (Zofran IV 07:53 08:00 Inj) 09/14/18 07:55 Procedures/MDM DIAGNOSTIC IMAGING REPORT Patient: JUAN SANON : 1965 Age: 53 Sex: M MR #: [id number] DOS: 09/14/18618 Ordering MD: VERENA KIMBALL PA-C Location: [facility] Room/Bed: PROCEDURE: CT ABDOMEN/PELVIS WITH CONTRAST CLINICAL INDICATION: 53-year-old male with abdominal/back pain. TECHNIQUE: The study was performed utilizing a [employer] VCT 64-slice CT scanner. Direct axial sections were obtained through the abdomen and pelvis with the use of 110 cc of Omnipaque-300 nonionic intravenous contrast material. Sagittal and coronal reformations were obtained. One or more of the following dose reduction techniques were utilized: automated exposure control, adjustment of the mA and/or kV according to patient's size and/or use of iterative recon struction technique. DICOM images are available. The images were reviewed on a PACS workstation. CTD/vol = 23.42 mGy; Total Exam DLP = 1576.26 mGy.cm. COMPARISON: Right upper quadrant ultrasound August 19, 2018. FINDINGS: Extensive calcification is seen within the proximal left anterior descending coronary artery. There is no evidence for significant pleural effusion. The liver appears to be enlarged with an irregular contour. without focal areas of abnormal density or contrast enhancement. No intrahepatic nor extrahepatic biliary ductal dilatation is seen. The gallbladder is distended but without evidence for calcified stones, significant wall thickening or pericholecystic f luid. The pancreas is without areas of abnormal attenuation or contrast enhancement. This spleen is mildly enlarged having a maximal dimension of 14 4 cm without abnormal density or contrast enhancement. The adrenal glands are unremarkable. The kidneys are functional bilaterally. There is a small right upper pole renal cyst measuring approximately 8 x 10 x 7 mm. No hydroureteronephrosis nor nephroureterolithiasis is evident. The urinary bladder contains minimal urine. There is a small umbilical hernia with an opening of 12 x 10 mm containing fat. There is diffuse thickening of the small bowel most prominently proximally without evidence for obstruction. There is minimal central mesenteric infiltration. The colon is decompressed. The appendix is visualized and is without edema or surrounding inflammatory reaction. There is no significant pelvic free fluid. The prostate is not enlarged. The aortoiliac vessels are without aneurysmal dilatation. Mild degenerative changes are seen within the lower thoracic spine. IMPRESSION: 1. Extensive proximal left anterior descending coronary artery calcifications. 2. Diffuse small bowel thickening most prominently proximally with minimal c entral mesenteric infiltration. This is suggestive of an enteritis. 3. Distended gallbladder. 4. Small right renal cyst. 5. No CT evidence for appendicitis. 6. Enlarged liver with irregular contour suggestive of cirrhosis. 7. Mild splenomegaly. 8. Small umbilical hernia containing fat. 9. Degenerative changes lower thoracic spine. MDM: T3-year-old male presenting with abdominal pain and back pain. Patient's back pain is likely associated muscular skeletal strain and I will treat with [facility] pportive medications. I have low suspicion for discitis or epidural abscess. I have low suspicion for cauda equina. Patient also has some findings consistent with colitis and will be treated with supportive medications. Patient is discharged with antibiotics. I have low suspicion for sepsis. Patient is discharged stricter precautions and told to follow-up with primary care within 1-2 days for close evaluation. Patient is told symptoms change or worsen to return immediately to the ER. All questions answered at discharge Departure Diagnosis: Primary Impression: Back pain Additional Impression: Abdominal pain Condition: Stable Patient Instructions: Abdominal Pain, Back Pain (Acute Or Chronic) Referrals: [facility] (PCP) Additional Instructions: FOLLOW UP WITH YOUR PRIMARY CARE PHYSICIAN TOMORROW.Return to this facility if you are not improving as expected. TANGELA KIMBALL PA-C Sep 14, 2018 13:24
== END 2018-09-14 08:30 | disposition home or self-care (01) ==
LOC: FTE 01:13
DX: M54.5 Low back pain (principal); R10.9 Unspecified abdominal pain; I10 Essential (primary) hypertension
CPT/HCPCS: 36415; 74177; 80053; 81001; 83690; 85025; 96374; 96375; 99285; J1885; J2270; J2405; Q9967

== ENCOUNTER 2018-10-26 14:05 | Inpatient (IN) | payer OTHER ==
[~2018-10-26] VITALS: Ht 170.7 cm; Wt 113.5 kg
[~2018-10-26 14:05] MED LIST changes: +CIPR500T4 PO; +CYCL10TA7 PO; +METR500T PO; +NAPR-985 PO
[2018-10-26] MEDS ORDERED: ONDANSETRON 4 MG INJ IV STA (16:37)
[2018-10-26] MEDS ORDERED: PANTOPRAZOLE 40 MG INJ IV ONE (17:00)
[2018-10-26] MEDS ORDERED: LISI30TA47 PO (17:07)
[2018-10-26] MEDS ORDERED: SPIR25TA PO ×2 (17:07→17:11)
[2018-10-26] MEDS ORDERED: PARO30TA48 PO (17:07)
[2018-10-26] MEDS ORDERED: FOL8 PO (17:10)
--- NOTE | 2018-10-26 17:24 | ERD ---
ER Documentation Chief Complaint Chief Complaint JAUNDINCE X 1 MOS, ETOH ABUSER HPI 53-year-old man with history of alcohol abuse presents with 1 week of increasing jaundice and icterus, he also states he feels like he is withdrawing and has upper extremity tremors. Patient has also had recent blood per rectum but denies melena, no abdominal pain, no fevers or chills, no vomiting or diarrhea. Patient denies chest pain or shortness of breath ROS All systems reviewed and are negative except as per history of present illness. Medications Home Meds Reported Medications Spironolactone* (Aldactone*) 25 Mg Tablet, 25 MG PO DAILY, #30 TAB 10/26/18 Folic Acid (Fa-8) 0.8 Mg Tablet, 0.8 MG PO DAILY, TAB 10/26/18 Spironolactone* (Aldactone*) 25 Mg Tablet, 25 MG PO DAILY, #30 TAB 10/26/18 Paroxetine Hcl* (Paxil*) 30 Mg Tablet, 30 MG PO HS, TAB 10/26/18 Lisinopril* (Lisinopril*) 30 Mg Tablet, 30 MG PO DAILY, #30 TAB 10/26/18 Discontinued Reported Medications Lisinopril* (Lisinopril*) 30 Mg Tablet, 30 MG PO DAILY, #30 TAB 08/19/18 Paroxetine Hcl* (Paxil*) 20 Mg Tablet, 20 MG PO DAILY, TAB 08/19/18 Discontinued Scripts Cyclobenzaprine Hcl* (Cyclobenzaprine Hcl*) 10 Mg Tablet, 10 MG PO TID, #15 TAB Prov:TANGELA KIMBALL PA-C 09/14/18 Naproxen* (Naprosyn*) 500 Mg Tablet, 500 MG PO BID PRN for PAIN AND/OR INFLAMMATION, #30 TAB Prov:TANGELA KIMBALL PA-C 09/14/18 Metronidazole* (Flagyl*) 500 Mg Tablet, 500 MG PO TID for 7 Days, TAB Prov:TANGELA KIMBALL PA-C 09/14/18 Ciprofloxacin Hcl* (Ciprofloxacin Hcl*) 500 Mg Tablet, 500 MG PO BID for 7 Days, TAB Prov:TANGELA KIMBALL PA-C 09/14/18 Fluticasone Propionate* (Fluticasone Propionate* Nasal) 50 Mcg/[place] - 16 Gm [place].susp, 1 SPRAY NASAL BID for 7 Days, #1 BOTTLE 6 Refills Prov:PRINCE PENA MD 08/22/18 Allergies Allergies: Coded Allergies: No Known Allergy (Unverified , 10/26/18) PMhx/Soc Obesity, alcoholism, alcoholic hepatitis, hypertension History of Surgery: No Anesthesia Reaction: No Hx 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 Disorder: No Hx Respiratory Disorders: No Hx Cardiac Disorders: Yes (HTN) Hx Psychiatric Problems: Yes (anxiety/depression) Hx Miscellaneous Medical Probl: Yes (liver chirossis) Hx Alcohol Use: Yes (2 drinks beer/day) Hx Substance Use: No Hx Tobacco Use: No Smoking Status: Never smoker FmHx Family History: No diabetes Physical Exam Vitals Vital Signs Date Temp Pulse Resp B/P (MAP) Pulse Ox O2 O2 Flow FiO2 Time Delivery Rate 10/26/18 85 19 136/77 100 Room Air 16:54 (96) 10/26/18 98.1 92 18 135/62 99 14:09 (86) Physical Exam Const: No acute distress, afebrile HEENT: Positive jaundice and icterus, dry mucous membranes, pink conjunctive a Resp: Clear to auscultation bilaterally Cardio: Regular rate and rhythm, no murmurs Abd: Soft, protuberant abdomen, positive hepatomegaly Skin: No petechiae or rashes Back: No midline or flank tenderness Ext: No cyanosis, 1+ pitting edema in the lower extremities bilaterally Neur: Awake and alert x3, pupils equal round reactive to light, positive upper extremity tremors and asterixis Psych: Normal Mood and Affect Result Diagram: 10/26/18 1656 10/26/18 1656 Results 24 hrs Laboratory Tests Test 10/26/18 16:56 White Blood Count 8.6 10^3/ul Red Blood Count 2.70 10^6/ul Hemoglobin 9.2 g/dl Hematocrit 25.5 % Mean Corpuscular Volume 94.4 fl Mean Corpuscular Hemoglobin 34.1 pg Mean Corpuscular Hemoglobin Concent 36.1 g/dl Red Cell Distribution Width 17.2 % Platelet Count 117 10^3/UL Mean Platelet Volume 10.1 fl Immature Granulocytes % 1.000 % Neutrophils % % Segmented Neutrophils % (Manual) 71 % Lymphocytes % % Lymphocytes % (Manual) 12 % Monocytes % % Monocytes % (Manual) 14 % Eosinophils % % Basophils % % Basophils % (Manual) 1 % Myelocytes % (Manual) 2 % Nucleated Red Blood Cells % 0.0 /100WBC Immature Granulocytes # 0.090 10^3/ul Neutrophils # 10^3/ul Lymphocytes (Manual) 1.0 10^3/ul Lymphocytes # 10^3/ul Monocytes # 10^3/ul Monocytes # (Manual) 1.2 10^3/ul Eosinophils # 10^3/ul Basophils # 10^3/ul Basophils # (Manual) 0.0 10^3/ul Myelocytes # 0.1 10^3/ul Nucleated Red Blood Cells # 10^3/ul Platelet Estimate DECREASED Polychromasia 1+ Hypochromasia 1+ Poikilocytosis 1+ Anisocytosis 1+ Macrocytosis 1+ Target Cells 1+ Prothrombin Time 24.6 Sec Prothrombin Time Ratio 1.9 INR International Normalized Ratio 2.21 Activated Partial Thromboplast Time 53.4 Sec Sodium Level 121 mmol/L Potassium Level 4.8 mmol/L Chloride Level 87 mmol/L Carbon Dioxide Level 24 mmol/L Anion Gap 10 Blood Urea Nitrogen 6 mg/dl Creatinine 0.52 mg/dl Est Glomerular Filtrat Rate mL/min > 60 mL/min Glucose Level 100 mg/dl Calcium Level 9.0 mg/dl Iron Level 179 ug/dl Total Iron Binding Capacity 231 ug/dl Percent Iron Saturation 77 % SAT Total Bilirubin 16.1 mg/dl Direct Bilirubin 11.90 mg/dl Indirect Bilirubin 4.2 mg/dl Aspartate Amino Transf (AST/SGOT) 409 IU/L Alanine Aminotransferase (ALT/SGPT) 142 IU/L Alkaline Phosphatase 301 IU/L Ammonia 10 umol/l Troponin I < 0.012 ng/ml B-Type Natriuretic Peptide 180 PG/ML Total Protein 7.7 g/dl Albumin 3.2 g/dl Globulin 4.50 g/dl Albumin/Globulin Ratio 0.71 Lipase 543 U/L Ethyl Alcohol Level 16.0 mg/dl Hepatitis B Surface Antigen NEGATIVE Hepatitis B Core Total Antibody NEGATIVE Hepatitis C Antibody REACTIVE Current Medications Medications Dose Sig/Luis Start Time Status Last (Trade) Ordered Route PRN Stop Time Admin Dose Reason Admin 40 mg ONCE ONCE 10/26/18 DC 10/26/18 Pantoprazole IV 17:00 10/26/18 17:04 (Protonix 17:01 Iv) Ondansetron 4 mg ONCE STAT 10/26/18 DC 10/26/18 HCl (Zofran IV 16:37 10/26/18 17:04 Inj) 16:39 Lorazepam 1 mg ONCE ONCE 10/26/18 DC 10/26/18 (Ativan) IV 17:30 10/26/18 17:40 17:31 Procedures/MDM IV line was established patient was placed on guide domestic tour rhythm strip revealed a sinus rhythm at about 80 bpm with upright P and T waves. Patient was afebrile EKG performed, read by me revealed a normal sinus rhythm 87 bpm, normal axis, narrow QRS complex, no concerning ST elevations or depressions noted I administered Zofran 4 mg IV, Protonix 40 mg IV, lorazepam 1 mg IV for alcohol withdrawal 1 view chest x-ray performed, read by me revealed atelectatic changes bilaterally, no acute infiltrates, no pneumothorax. CBC reveals anemia, electrolytes revealed hyponatremia, liver function tests were abnormal with transaminitis, troponin negative, ammonia level low, ethanol level negative. Bladder ultrasound performed,IMPRESSION: 1. Hepatomegaly and fatty metamorphosis of the liver. 2. Sludge and small gallstones in the gallbladder. Mild gallbladder wall thickening. This may indicate cholecystitis. Clinical correlation is advised. 3. Pancreas not visualized. 4. Benign right renal cyst. 5. Otherwise unremarkable study. Patient will be admitted for continued medical management and possible surgical consultation. Departure Diagnosis: Primary Impression: Jaundice Additional Impressions: Decompensated hepatic cirrhosis Alcohol abuse Alcohol withdrawal Complication of substance-induced condition: uncomplicated Qualified Codes: F10.230 - Alcohol dependence with withdrawal, uncomplicated Condition: Fair MARVA OSCAR MD Oct 26, 2018 17:23
[2018-10-26] MEDS ORDERED: LORAZEPAM 2 MG INJ IV ONE (17:30)
[2018-10-26] MEDS ORDERED: ONDANSETRON 4 MG INJ IV PRN (19:30)
[2018-10-26] MEDS ORDERED: NACL 0.9% 3 ML SYG IV SCH (19:30)
[2018-10-26] MEDS ORDERED: morphine 2 MG INJ IV PRN (19:30)
[2018-10-26] MEDS ORDERED: MAGNESIUM HYDROXIDE 30ML CUP PO PRN (19:30)
[2018-10-26] MEDS: LORAZEPAM 2 MG INJ IV SCH (19:30)
[2018-10-26] MEDS ORDERED: DOCUSATE SODIUM 100 MG CAP PO PRN (19:30)
--- NOTE | 2018-10-26 19:37 | HP ---
Date/Time of Note Date/Time of Note DATE: 10/26/18 TIME: 19:18 Assessment/Plan VTE Prophylaxis SCD applied (from Nsg): Yes Pharmacological prophylaxis: NA/contraindicated Pharm contraindication: liver dx Lines/Catheters IV Catheter Type (from Nrsg): Saline Lock Assessment/Plan Assessment/Plan 1. Acute liver failure - Patient counseled about etiology most likely being from continued ETOH use - US GB shows fatty changes and hepatomegaly - LFT elevated - GI consulted for further recommendations - Will check hepatitis panel as well - Further imaging per GI recommendations - Will consult IR to evaluate for paracentesis 2. Alcoholic abuse - ETOH levels noted - in setting of liver failure, will hold off on Librium. Will start Ativan and PRN Ativan as needed - monitor for DTs - MVI, thiamine, and folate started 3. Acute hyponatremia - most likely in setting of hypervolemia - Nephrology consulted for further recommendations - patient admitted in July for hyponatremia as well 4. Anemia - most likely chronic disease - will check iron levels 5. Alcoholic hepatitis - AST/ALT elevated 2:1 6. ? Acute cholecystitis - will consult General Surgery for evaluation 7. Elevated lipase - patient asking to eat. Will attempt regular diet and if not tolerating will change to NPO 8. DVT ppx - SCD 9. Disposition - Admit to telemetry for acute liver failure workup Result Diagram: 10/26/18 1656 10/26/18 1656 Results 24hrs Laboratory Tests Test 10/26/18 16:56 White Blood Count 8.6 # Red Blood Count 2.70 #L Hemoglobin 9.2 #L Hematocrit 25.5 #L Mean Corpuscular Volume 94.4 Mean Corpuscular Hemoglobin 34.1 H Mean Corpuscular Hemoglobin Concent 36.1 Red Cell Distribution Width 17.2 H Platelet Count 117 #L Mean Platelet Volume 10.1 Immature Granulocytes % 1.000 H Neutrophils % Segmented Neutrophils % (Manual) 71 Lymphocytes % Lymphocytes % (Manual) 12 L Monocytes % Monocytes % (Manual) 14 H Eosinophils % Basophils % Basophils % (Manual) 1 Myelocytes % (Manual) 2 H Nucleated Red Blood Cells % 0.0 Immature Granulocytes # 0.090 H Neutrophils # Lymphocytes (Manual) 1.0 Lymphocytes # Monocytes # Monocytes # (Manual) 1.2 H Eosinophils # Basophils # Basophils # (Manual) 0.0 Myelocytes # 0.1 H Nucleated Red Blood Cells # Platelet Estimate DECREASED Polychromasia 1+ Hypochromasia 1+ Poikilocytosis 1+ Anisocytosis 1+ Macrocytosis 1+ Target Cells 1+ Prothrombin Time 24.6 #H Prothrombin Time Ratio 1.9 INR International Normalized Ratio 2.21 Activated Partial Thromboplast Time 53.4 H Sodium Level 121 L Potassium Level 4.8 Chloride Level 87 L Carbon Dioxide Level 24 Anion Gap 10 Blood Urea Nitrogen 6 L Creatinine 0.52 L Est Glomerular Filtrat Rate mL/min > 60 Glucose Level 100 Calcium Level 9.0 Total Bilirubin 16.1 H Direct Bilirubin 11.90 H Indirect Bilirubin 4.2 H Aspartate Amino Transf (AST/SGOT) 409 H Alanine Aminotransferase (ALT/SGPT) 142 H Alkaline Phosphatase 301 H Ammonia 10 Troponin I < 0.012 B-Type Natriuretic Peptide 180 H Total Protein 7.7 Albumin 3.2 L Globulin 4.50 H Albumin/Globulin Ratio 0.71 Lipase 543 H Ethyl Alcohol Level 16.0 H HPI/ROS Admit Date/Time Admit Date/Time 10/26/18 1900 Hx of Present Illness 53 yo M with PMH alcohol liver cirrhosis and HTN presented to ED with 1 month of worsening jaundice. Patient was referred to the ED by PMD for evaluation. Patient states he has been noticing his skin and eyes becoming more jaundiced. He also complains of worsening blurred vision as well as abdominal pain with nausea and nonbilious, nonbloody emesis. Does admit to occasional blood in stool as well but associated with constipation. Patient has been complaining of swelling of abdomen as well as pain diffusely. Denies any chest pain, shortness of breath, LOC, palpitations, or urinary issues. Patient states he has cut down his drinking significantly but still drinking a few drinks daily with last drink this am. He plans to go to AA type of group at his [place] to quit. ROS All 12 systems reviewed and pertinent positives as per HPI. All others negative. Constitutional: nausea; No chills, No fatigue Eyes: No discharge ENT: No congestion Respiratory: No cough, No shortness of breath, No sputum, No wheezing Cardiovascular: No chest pain, No lightheadedness, No palpitations Gastrointestinal: pain, constipation, decreased appetite, nausea, vomiting; No diarrhea Genitourinary: no complaints Musculoskeletal: no complaints Skin: No bruising, No laceration, No rash Neurologic: No confusion, No focal-weakness, No syncope Endocrine: no complaints Lymphatic: no complaints Psychological: nl mood/affect Immunologic: no complaints PMH/Family/Social Past Medical History Medical History: hypertension, other (cirrhosis) Coded Allergies: No Known Allergy (Unverified , 10/26/18) Past Surgical History Past Surgical Hx: no surgical history Family History Significant Family History: no pertinent family hx Social History Alcohol Use: other (daily) Smoking Status: Never smoker Drug Use: none Exam/Review of Systems Vital Signs Vitals Vital Signs Date Temp Pulse Resp B/P (MAP) Pulse Ox O2 O2 Flow FiO2 Time Delivery Rate 10/26/18 85 19 136/77 100 Room Air 16:54 (96) 10/26/18 98.1 14:09 Exam Exam General: Patient is currently lying in bed,no acute distress, jaundiced HEENT: Atraumatic, normocephalic. The pupils are equal, round and reactive. E xtraocular motor are intact. bilateral scleral icterus Neck: Supple with full range of motion. No rigidity or meningismus Chest: Nontender Lungs: Clear to auscultation bilaterally no crackles rales or wheezing Heart: Normal S1-S2, Regular rhythm and rate. No murmur, S3, or S4 Abdomen: Soft , diffusely tender to palpation, distended, bowel sounds are present. No guarding no rebound tenderness , No masses or organomegaly. No costovertebral temporal angle mass Extremities: Normal to inspection, no edema no cyanosis Additional Comments Home medications reviewed PROCEDURE: XR Chest. CLINICAL INDICATION: Abdominal pain. TECHNIQUE: Single frontal view. COMPARISON: 08/19/2018. FINDINGS: The lungs are clear. The heart is enlarged. There is no pleural effusion. There is no pneumothorax. IMPRESSION: 1. Cardiomegaly. 2. Otherwise unremarkable chest radiograph. RPTAT: QQ .Erick Inman MD, Date Time Electronically viewed and signed by .Erick Inman MD, on 10/26/2018 17:23 PROCEDURE: US Abdomen (right upper quadrant). CLINICAL INDICATION: Elevated liver function tests. TECHNIQUE: Multiple real-time longitudinal and transverse images of the right upper quadrant of the abdomen were acquired utilizing a curved array transducer. Images were reviewed on a high-resolution PACS workstation. COMPARISON: None FINDINGS: The liver is enlarged and diffusely increased in echogenicity. There is no focal hepatic lesion. There is normal antegrade flow in the portal vein demonstrated with color Doppler and pulsed Doppler sonography. The gallbladder contains sludge and multiple small gallstones. The gallbladder wall is mildly thickened measuring 3.6 mm. There is no fluid around the gallbladder. The bile ducts are normal with the common bile duct measuring 2.5 mm in diameter. The pancreas is not visualized due to overlying bowel gas. No free fluid is present. The right kidney measures 10.8 cm. There is normal echogenicity of the right kidney. There is no solid right renal mass, hydronephrosis, or calculus. There is a benign 1 cm cyst in the upper to mid right kidney. IMPRESSION: 1. Hepatomegaly and fatty metamorphosis of the liver. 2. Sludge and small gallstones in the gallbladder. Mild gallbladder wall thickening. This may indicate cholecystitis. Clinical correlation is advised. 3. Pancreas not visualized. 4. Benign right renal cyst. 5. Otherwise unremarkable study. RPTAT: QQ .Erick Inman MD, MD Date Time Electronically viewed and signed by .Erick Inman MD, MD on 10/26/2018 17:19 PRINCE PENA MD Oct 26, 2018 19:37
--- NOTE | 2018-10-26 20:20 | CONS ---
Assessment/Plan Assessment/Plan Assessment/Plan (Daily) 1. Hyponatremia due to Hypervolemic Hyponatremia in setting of acute liver failure 2. Rule out SIADH 3. Acute hepatic failure 4. Biliary colic vs cholecystitis 5. H/o alcohol abuse Plan: pt was seen in ED- Abdominal US iN ED showed The right kidney measures 10.8 cm. There is normal echogenicity of the right kidney. There is no solid right renal mass, hydronephrosis, or calculus. There is a benign 1 cm cyst in the upper to mid right kidney. no IVF at this point due to worry about fluid overload urine Na, Urine osmolarity, serum osmolarity, TSH, free T4 for work up of hyponatremia Thanks for consultation, I will continue to follow up Consultation Date/Type/Reason Admit Date/Time 10/26/181899 Date of Consultation: Oct 26, 2018 Type of Consult NEPHROLOGY Reason for Consultation Hyponatremia, Hypervolemic Hyponatremia vs SIADH Requesting Provider: PRINCE PENA MD Date/Time of Note DATE: 10/26/18 TIME: 20:20 Hx of Present Illness 3 yo M with PMH alcohol liver cirrhosis and HTN presented to ED with 1 month of worsening jaundice. Patient was referred to the ED by PMD for evaluation.pt cut down his drinking but still drinks once a day, in ED he was noted to have Hyponatremia with Na 121 on admission, Cl has been low too, BUn/Cr normal, renal has been consulted for hyponatremia, rule out SIADH Constitutional: poor po, other (jaundice ) ENT: no complaints Respiratory: no complaints Cardiovascular: no complaints Gastrointestinal: no complaints Genitourinary: no complaints Musculoskeletal: no complaints Skin: no complaints Neurologic: no complaints Endocrine: no complaints Lymphatic: no complaints Psychological: no complaints Immunologic: no complaints Past Medical History Medical History: hypertension, other (cirrhosis) Home Meds Reported Medications Spironolactone* (Aldactone*) 25 Mg Tablet, 25 MG PO DAILY, #30 TAB 10/26/18 Folic Acid (Fa-8) 0.8 Mg Tablet, 0.8 MG PO DAILY, TAB 10/26/18 Spironolactone* (Aldactone*) 25 Mg Tablet, 25 MG PO DAILY, #30 TAB 10/26/18 Paroxetine Hcl* (Paxil*) 30 Mg Tablet, 30 MG PO HS, TAB 10/26/18 Lisinopril* (Lisinopril*) 30 Mg Tablet, 30 MG PO DAILY, #30 TAB 10/26/18 Discontinued Reported Medications Lisinopril* (Lisinopril*) 30 Mg Tablet, 30 MG PO DAILY, #30 TAB 08/19/18 Paroxetine Hcl* (Paxil*) 20 Mg Tablet, 20 MG PO DAILY, TAB 08/19/18 Discontinued Scripts Cyclobenzaprine Hcl* (Cyclobenzaprine Hcl*) 10 Mg Tablet, 10 MG PO TID, #15 TAB Prov:TANGELA KIMBALL PA-C 09/14/18 Naproxen* (Naprosyn*) 500 Mg Tablet, 500 MG PO BID PRN for PAIN AND/OR INFLAMMATION, #30 TAB Prov:TANGELA KIMBALL PA-C 09/14/18 Metronidazole* (Flagyl*) 500 Mg Tablet, 500 MG PO TID for 7 Days, TAB Prov:TANGELA KIMBALL PA-C 09/14/18 Ciprofloxacin Hcl* (Ciprofloxacin Hcl*) 500 Mg Tablet, 500 MG PO BID for 7 Days, TAB Prov:TANGELA KIMBALL PA-C 09/14/18 Fluticasone Propionate* (Fluticasone Propionate* Nasal) 50 Mcg/[place] - 16 Gm [place].susp, 1 SPRAY NASAL BID for 7 Days, #1 BOTTLE 6 Refills Prov:PRINCE PENA MD 08/22/18 Medications Current Medications Lisinopril (Zestril) 30 mg DAILY PO ; Start 10/27/18 at 09:00 Paroxetine HCl (Paxil) 30 mg HS PO ; Start 10/26/18 at 21:00 Spironolactone (Aldactone) 50 mg DAILY PO ; Start 10/27/18 at 09:00 Folic Acid (Folic Acid) 1 mg DAILY PO ; Start 10/27/18 at 09:00 Thiamine HCl (Vitamin B1) 100 mg DAILY PO ; Start 10/27/18 at 09:00 Multivitamins Therapeutic (Theragran) 1 tab DAILY PO ; Start 10/27/18 at 09:00 Lorazepam (Ativan) 1 mg Q4H PRN IV withdrawal, seizures; Start 10/26/18 at 19:30 Lorazepam (Ativan) 1 mg Q8H IV ; Start 10/26/18 at 19:30 IV Flush (NS 3 ml) 3 ml PER PROTOCOL IV ; Start 10/26/18 at 19:30 Ondansetron HCl (Zofran Inj) 4 mg Q6H PRN IV NAUSEA/VOMITING; Start 10/26/18 at 19:30 Morphine Sulfate (morphine) 2 mg Q4H PRN IV .PAIN 7-10; Start 10/26/18 at 19:30 Docusate Sodium (Colace) 100 mg Q12H PRN PO .CONSTIPATION; Start 10/26/18 at 19:30 Magnesium Hydroxide (Milk Of Mag) 30 ml DAILY PRN PO .CONSTIPATION; Start 10/26/18 at 19:30 Allergies: Coded Allergies: No Known Allergy (Unverified , 10/26/18) Past Surgical History Past Surgical Hx: no surgical history Social History Alcohol Use: other (daily) Smoking Status: Never smoker Drug Use: none Exam/Review of Systems Exam Vitals Vital Signs Date Temp Pulse Resp B/P (MAP) Pulse Ox O2 O2 Flow FiO2 Time Delivery Rate 10/26/18 87 16 141/87 98 Room Air 18:20 (105) 10/26/18 98.1 14:09 Exam GEN: no acute distress, + jaundice HEENT: Atraumatic, normocephalic. The pupils are equal, round and reactive. Extraocular motor are intact. bilateral scleral icterus Neck: Supple with full range of motion. No rigidity or meningismus Chest: Nontender Lungs: Clear to auscultation bilaterally no crackles rales or wheezing Heart: Normal S1-S2, Regular rhythm and rate. No murmur, S3, or S4 Abdomen: Soft , diffusely tender to palpation, distended, bowel sounds are present. No guarding no rebound tenderness , Extremities: Normal to inspection, no edema no cyanosis, skin yellow Results Result Diagram: 10/26/18 1656 10/26/18 1656 Results 24hrs Laboratory Tests Test 10/26/18 16:56 White Blood Count 8.6 # Red Blood Count 2.70 #L Hemoglobin 9.2 #L Hematocrit 25.5 #L Mean Corpuscular Volume 94.4 Mean Corpuscular Hemoglobin 34.1 H Mean Corpuscular Hemoglobin Concent 36.1 Red Cell Distribution Width 17.2 H Platelet Count 117 #L Mean Platelet Volume 10.1 Immature Granulocytes % 1.000 H Neutrophils % Segmented Neutrophils % (Manual) 71 Lymphocytes % Lymphocytes % (Manual) 12 L Monocytes % Monocytes % (Manual) 14 H Eosinophils % Basophils % Basophils % (Manual) 1 Myelocytes % (Manual) 2 H Nucleated Red Blood Cells % 0.0 Immature Granulocytes # 0.090 H Neutrophils # Lymphocytes (Manual) 1.0 Lymphocytes # Monocytes # Monocytes # (Manual) 1.2 H Eosinophils # Basophils # Basophils # (Manual) 0.0 Myelocytes # 0.1 H Nucleated Red Blood Cells # Platelet Estimate DECREASED Polychromasia 1+ Hypochromasia 1+ Poikilocytosis 1+ Anisocytosis 1+ Macrocytosis 1+ Target Cells 1+ Prothrombin Time 24.6 #H Prothrombin Time Ratio 1.9 INR International Normalized Ratio 2.21 Activated Partial Thromboplast Time 53.4 H Sodium Level 121 L Potassium Level 4.8 Chloride Level 87 L Carbon Dioxide Level 24 Anion Gap 10 Blood Urea Nitrogen 6 L Creatinine 0.52 L Est Glomerular Filtrat Rate mL/min > 60 Glucose Level 100 Calcium Level 9.0 Iron Level 179 H Total Iron Binding Capacity Pending Percent Iron Saturation Pending Total Bilirubin 16.1 H Direct Bilirubin 11.90 H Indirect Bilirubin 4.2 H Aspartate Amino Transf (AST/SGOT) 409 H Alanine Aminotransferase (ALT/SGPT) 142 H Alkaline Phosphatase 301 H Ammonia 10 Troponin I < 0.012 B-Type Natriuretic Peptide 180 H Total Protein 7.7 Albumin 3.2 L Globulin 4.50 H Albumin/Globulin Ratio 0.71 Lipase 543 H Ethyl Alcohol Level 16.0 H Hepatitis B Surface Antigen NEGATIVE Hepatitis B Core Total Antibody Pending Hepatitis C Antibody Pending Medications Medication Current Medications Lisinopril (Zestril) 30 mg DAILY PO ; Start 10/27/18 at 09:00 Paroxetine HCl (Paxil) 30 mg HS PO ; Start 10/26/18 at 21:00 Spironolactone (Aldactone) 50 mg DAILY PO ; Start 10/27/18 at 09:00 Folic Acid (Folic Acid) 1 mg DAILY PO ; Start 10/27/18 at 09:00 Thiamine HCl (Vitamin B1) 100 mg DAILY PO ; Start 10/27/18 at 09:00 Multivitamins Therapeutic (Theragran) 1 tab DAILY PO ; Start 10/27/18 at 09:00 Lorazepam (Ativan) 1 mg Q4H PRN IV withdrawal, seizures; Start 10/26/18 at 19:30 Lorazepam (Ativan) 1 mg Q8H IV ; Start 10/26/18 at 19:30 IV Flush (NS 3 ml) 3 ml PER PROTOCOL IV ; Start 10/26/18 at 19:30 Ondansetron HCl (Zofran Inj) 4 mg Q6H PRN IV NAUSEA/VOMITING; Start 10/26/18 at 19:30 Morphine Sulfate (morphine) 2 mg Q4H PRN IV .PAIN 7-10; Start 10/26/18 at 19:30 Docusate Sodium (Colace) 100 mg Q12H PRN PO .CONSTIPATION; Start 10/26/18 at 19:30 Magnesium Hydroxide (Milk Of Mag) 30 ml DAILY PRN PO .CONSTIPATION; Start 10/26/18 at 19:30 BUCK CARO MD Oct 26, 2018 20:20
[2018-10-26] MEDS: PAROXETINE 10 MG TAB PO SCH (21:00)
[2018-10-26 21:29] VITALS: PULSE 94
[2018-10-27] VITALS (12 sets, daily range): BP systolic 106–135; BP diastolic 53–85; PULSE 89–114; RESP 18–24
[2018-10-27] MEDS: LORAZEPAM 2 MG INJ IV SCH ×3 (03:56→21:16)
--- NOTE | 2018-10-27 05:25 | CONS ---
Assessment/Plan Assessment/Plan Hospital Course (Demo Recall) 1. Thickened gallbladder wall with sludge and small stones. I doubt this is s econdary to acute cholecystitis. Patient has acute liver failure with cirrhosis and most probably edema of the gallbladder. However if still concerned will benefit from HIDA scan. -Close monitoring -Medical/GI optimization -Alcohol cessation highly encouraged -Antibiotics -HIDA if concern continues 2. Acute liver failure/Hepatitis with transaminitis, hyperbilirubinemia -Trend labs -Medical/GI optimization -Alcohol cessation highly encouraged 3. Alcohol abuse -As above 4. Acute hyponatremia secondary to volume status -Judicious fluid management 5. Anemia most likely chronic disease and iron deficiency, doubt acute blood loss -Monitor and treat per medical team 6. Elevated lipase questionable pancreatitis -Trend levels 7. BMI 39 -Encourage nutrition optimization -Encourage exercise 8. Hypoalbuminemia, multifactorial -Medical optimization (cirrhosis, nutrition, cessation of alcohol abuse) Thank you very much for consulting me in this patient's care, Consultation Date/Type/Reason Admit Date/Time 10/26/18 1900 Date of Consultation: Oct 27, 2018 Type of Consult General surgical Reason for Consultation Thickened gallbladder Acute liver failure Cirrhosis Alcohol abuse BMI 39 Requesting Provider: PRINCE PENA MD Date/Time of Note DATE: 10/27/18 TIME: 04:35 Hx of Present Illness Moreno Hurst is a 53 yo M with significant comorbidities specifically alcoholic liver disease with cirrhosis who presents to ED with 1 month of worsening jaundice. Patient was referred to the ED by PMD for evaluation. Daren linares states he has been noticing his skin and eyes becoming more jaundiced. He also complains of worsening blurred vision as well as abdominal pain with nausea and nonbilious, nonbloody emesis. Pain and vomiting are intermittent. Patient has been complaining of swelling of abdomen as well as pain diffusely. Denies any chest pain, shortness of breath, LOC, palpitations, urinary issues, cough, seizure, dysuria, blood in stools. Constipated. Patient states he has cut down his drinking significantly but still drinking a few drinks daily with last drink this am. He plans to go to AA type of group [facility] to [facility]. His workup identified elevated LFTs and bilirubin (16) with liver failure. Gallbladder identified thickened estrada. Surgical consult is obtained for further evaluation and treatment. 12 point review of system negative unless otherwise addressed in chart Past Medical History hypertension cirrhosis BMI 39 Ecchymoses Home Meds Reported Medications Spironolactone* (Aldactone*) 25 Mg Tablet, 25 MG PO DAILY, #30 TAB 10/26/18 Folic Acid (Fa-8) 0.8 Mg Tablet, 0.8 MG PO DAILY, TAB 10/26/18 Spironolactone* (Aldactone*) 25 Mg Tablet, 25 MG PO DAILY, #30 TAB 10/26/18 Paroxetine Hcl* (Paxil*) 30 Mg Tablet, 30 MG PO HS, TAB 10/26/18 Lisinopril* (Lisinopril*) 30 Mg Tablet, 30 MG PO DAILY, #30 TAB 10/26/18 Discontinued Reported Medications Lisinopril* (Lisinopril*) 30 Mg Tablet, 30 MG PO DAILY, #30 TAB 08/19/18 Paroxetine Hcl* (Paxil*) 20 Mg Tablet, 20 MG PO DAILY, TAB 08/19/18 Discontinued Scripts Cyclobenzaprine Hcl* (Cyclobenzaprine Hcl*) 10 Mg Tablet, 10 MG PO TID, #15 TAB Prov:TANGELA KIMBALL PA-C 09/14/18 Naproxen* (Naprosyn*) 500 Mg Tablet, 500 MG PO BID PRN for PAIN AND/OR INFLAMMATION, #30 TAB Prov:TANGELA KIMBALL PA-C 09/14/18 Metronidazole* (Flagyl*) 500 Mg Tablet, 500 MG PO TID for 7 Days, TAB Prov:TANGELA KIMBALL PA-C 09/14/18 Ciprofloxacin Hcl* (Ciprofloxacin Hcl*) 500 Mg Tablet, 500 MG PO BID for 7 Days, TAB Prov:TANGELA KIMBALL PA-C 09/14/18 Fluticasone Propionate* (Fluticasone Propionate* Nasal) 50 Mcg/[place] - 16 Gm [place].susp, 1 SPRAY NASAL BID for 7 Days, #1 BOTTLE 6 Refills Prov:PRINEC PENA MD 08/22/18 Medications Current Medications Paroxetine HCl (Paxil) 30 mg HS PO ; Start 10/26/18 at 21:00 Spironolactone (Aldactone) 50 mg DAILY PO ; Start 10/27/18 at 09:00 Folic Acid (Folic Acid) 1 mg DAILY PO ; Start 10/27/18 at 09:00 Thiamine HCl (Vitamin B1) 100 mg DAILY PO ; Start 10/27/18 at 09:00 Multivitamins Therapeutic (Theragran) 1 tab DAILY PO ; Start 10/27/18 at 09:00 Lorazepam (Ativan) 1 mg Q4H PRN IV withdrawal, seizures; Start 10/26/18 at 19:30 Lorazepam (Ativan) 1 mg Q8H IV Last administered on 10/27/18at 03:56; Admin Dose 1 MG; Start 10/26/18 at 19:30 IV Flush (NS 3 ml) 3 ml PER PROTOCOL IV ; Start 10/26/18 at 19:30 Ondansetron HCl (Zofran Inj) 4 mg Q6H PRN IV NAUSEA/VOMITING; Start 10/26/18 at 19:30 Morphine Sulfate (morphine) 2 mg Q4H PRN IV .PAIN 7-10; Start 10/26/18 at 19:30 Docusate Sodium (Colace) 100 mg Q12H PRN PO .CONSTIPATION; Start 10/26/18 at 19:30 Magnesium Hydroxide (Milk Of Mag) 30 ml DAILY PRN PO .CONSTIPATION; Start 10/26/18 at 19:30 Lisinopril (Zestril) 10 mg BID PO ; Start 10/27/18 at 09:00 Allergies: Coded Allergies: No Known Allergy (Unverified , 10/26/18) Past Surgical History Past Surgical Hx: no surgical history Family History Significant Family History: no pertinent family hx Social History Alcohol Use: other (daily) Smoking Status: Never smoker Drug Use: none Exam/Review of Systems Exam Vitals Vital Signs Date Temp Pulse Resp B/P (MAP) Pulse Ox O2 O2 Flow FiO2 Time Delivery Rate 10/27/18 94 04:30 10/27/18 98.4 18 128/63 98 04:00 (84) 10/26/18 Room Air 18:20 Constitutional: alert, oriented, obese; No distress Psych: anxiety; No confusion Head: normocephalic Eyes: EOMI, PERRL, icteric; No nl conjunctiva ENMT: nl external ears & nose, nl lips & teeth, nl nasal mucosa & septum Neck: supple, non-tender Respiratory: normal air movement; No congested cough, No labored breathing, No wheezing Cardiovascular: regular rate and rhythm, edema Gastrointestinal: soft, non-tender, distended; No rebound or guarding Genitourinary - Male: nl penis, nl scrotum Musculoskeletal: nl extremities to inspection; No joint tenderness Extremities: edema; No calf tenderness 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: nl mental status, nl speech, nl strength Skin: nl turgor, ecchymosis; No diaphoresis Lymph: nl lymph nodes Results Result Diagram: 10/26/18 1656 10/26/18 1656 Results 24hrs Laboratory Tests Test 10/26/18 16:56 White Blood Count 8.6 # Red Blood Count 2.70 #L Hemoglobin 9.2 #L Hematocrit 25.5 #L Mean Corpuscular Volume 94.4 Mean Corpuscular Hemoglobin 34.1 H Mean Corpuscular Hemoglobin Concent 36.1 Red Cell Distribution Width 17.2 H Platelet Count 117 #L Mean Platelet Volume 10.1 Immature Granulocytes % 1.000 H Neutrophils % Segmented Neutrophils % (Manual) 71 Lymphocytes % Lymphocytes % (Manual) 12 L Monocytes % Monocytes % (Manual) 14 H Eosinophils % Basophils % Basophils % (Manual) 1 Myelocytes % (Manual) 2 H Nucleated Red Blood Cells % 0.0 Immature Granulocytes # 0.090 H Neutrophils # Lymphocytes (Manual) 1.0 Lymphocytes # Monocytes # Monocytes # (Manual) 1.2 H Eosinophils # Basophils # Basophils # (Manual) 0.0 Myelocytes # 0.1 H Nucleated Red Blood Cells # Platelet Estimate DECREASED Polychromasia 1+ Hypochromasia 1+ Poikilocytosis 1+ Anisocytosis 1+ Macrocytosis 1+ Target Cells 1+ Prothrombin Time 24.6 #H Prothrombin Time Ratio 1.9 INR International Normalized Ratio 2.21 Activated Partial Thromboplast Time 53.4 H Sodium Level 121 L Potassium Level 4.8 Chloride Level 87 L Carbon Dioxide Level 24 Anion Gap 10 Blood Urea Nitrogen 6 L Creatinine 0.52 L Est Glomerular Filtrat Rate mL/min > 60 Glucose Level 100 Calcium Level 9.0 Iron Level 179 H Total Iron Binding Capacity 231 L Percent Iron Saturation 77 H Total Bilirubin 16.1 H Direct Bilirubin 11.90 H Indirect Bilirubin 4.2 H Aspartate Amino Transf (AST/SGOT) 409 H Alanine Aminotransferase (ALT/SGPT) 142 H Alkaline Phosphatase 301 H Ammonia 10 Troponin I < 0.012 B-Type Natriuretic Peptide 180 H Total Protein 7.7 Albumin 3.2 L Globulin 4.50 H Albumin/Globulin Ratio 0.71 Lipase 543 H Ethyl Alcohol Level 16.0 H Hepatitis B Surface Antigen NEGATIVE Hepatitis B Core Total Antibody NEGATIVE Hepatitis C Antibody REACTIVE H Imaging Imaging Ultrasound: 1. Hepatomegaly and fatty metamorphosis of the liver. 2. Sludge and small gallstones in the gallbladder. Mild gallbladder wall thickening. This may indicate cholecystitis. Clinical correlation is advised. 3. Pancreas not visualized. 4. Benign right renal cyst. 5. Otherwise unremarkable study. Medications Medication Current Medications Paroxetine HCl (Paxil) 30 mg HS PO ; Start 10/26/18 at 21:00 Spironolactone (Aldactone) 50 mg DAILY PO ; Start 10/27/18 at 09:00 Folic Acid (Folic Acid) 1 mg DAILY PO ; Start 10/27/18 at 09:00 Thiamine HCl (Vitamin B1) 100 mg DAILY PO ; Start 10/27/18 at 09:00 Multivitamins Therapeutic (Theragran) 1 tab DAILY PO ; Start 10/27/18 at 09:00 Lorazepam (Ativan) 1 mg Q4H PRN IV withdrawal, seizures; Start 10/26/18 at 19:30 Lorazepam (Ativan) 1 mg Q8H IV Last administered on 10/27/18at 03:56; Admin Dose 1 MG; Start 10/26/18 at 19:30 IV Flush (NS 3 ml) 3 ml PER PROTOCOL IV ; Start 10/26/18 at 19:30 Ondansetron HCl (Zofran Inj) 4 mg Q6H PRN IV NAUSEA/VOMITING; Start 10/26/18 at 19:30 Morphine Sulfate (morphine) 2 mg Q4H PRN IV .PAIN 7-10; Start 10/26/18 at 19:30 Docusate Sodium (Colace) 100 mg Q12H PRN PO .CONSTIPATION; Start 10/26/18 at 19:30 Magnesium Hydroxide (Milk Of Mag) 30 ml DAILY PRN PO .CONSTIPATION; Start 10/26/18 at 19:30 Lisinopril (Zestril) 10 mg BID PO ; Start 10/27/18 at 09:00 ASHER BATES MD Oct 27, 2018 04:46
[2018-10-27] MEDS: FOLIC ACID 1 MG TAB PO SCH (08:23)
[2018-10-27] MEDS: THIAMINE 100 MG TAB PO SCH (08:23)
[2018-10-27] MEDS: LISINOPRIL 10 MG TAB PO SCH ×2 (08:23→21:15)
[2018-10-27] MEDS: MULTIVITAMINS THERAPEUTIC TAB PO SCH (08:23)
[2018-10-27] MEDS: SPIRONOLACTONE 25 MG TAB PO SCH (08:23)
--- NOTE | 2018-10-27 08:44 | CONS ---
Assessment/Plan Assessment/Plan Assessment/Plan (Daily) 1. Hyponatremia due to Hypervolemic Hyponatremia in setting of acute liver failure 2. Rule out SIADH 3. Acute hepatic failure 4. Biliary colic vs cholecystitis 5. H/o alcohol abuse Plan: Na still low 121- will give IVF NS at 60 cc/hr x 1 liter , na chloride tablet 1g lala PO BID Abdominal US iN ED showed The right kidney measures 10.8 cm. There is normal echogenicity of the right kidney. There is no solid right renal mass, hydronephrosis, or calculus. There is a benign 1 cm cyst in the upper to mid right kidney. Change lisinopirl to 10mg BID, Spironolactone 50mg po daily will follow up Consultation Date/Type/Reason Admit Date/Time Oct 26, 2018 at 17:57 Initial Consult Date 10/27/18 Type of Consult NEPHROLOGY Requesting Provider: PRINCE PENA MD Date/Time of Note DATE: 10/27/18 TIME: 08:44 Exam/Review of Systems Exam Vitals Vital Signs Date Temp Pulse Resp B/P (MAP) Pulse Ox O2 O2 Flow FiO2 Time Delivery Rate 10/27/18 92 08:09 10/27/18 98.2 20 116/53 98 Room Air 07:30 (74) Exam GEN: no acute distress, + jaundice HEENT: [place], EOMI, + Jaundice Neck: Supple with full range of motion. No rigidity or meningismus Chest: Nontender Lungs: Clear to auscultation bilaterally no crackles rales or wheezing Heart: Normal S1-S2, Regular rhythm and rate. No murmur, S3, or S4 Abdomen: Soft , diffusely tender to palpation, distended, bowel sounds are present. Extremities: Normal to inspection, no edema no cyanosis, skin yellow Results Result Diagram: 10/26/18 1656 10/26/18 1656 Results 24hrs Laboratory Tests Test 10/26/18 16:56 10/27/18 02:00 White Blood Count 8.6 # Red Blood Count 2.70 #L Hemoglobin 9.2 #L Hematocrit 25.5 #L Mean Corpuscular Volume 94.4 Mean Corpuscular Hemoglobin 34.1 H Mean Corpuscular Hemoglobin Concent 36.1 Red Cell Distribution Width 17.2 H Platelet Count 117 #L Mean Platelet Volume 10.1 Immature Granulocytes % 1.000 H Neutrophils % Segmented Neutrophils % (Manual) 71 Lymphocytes % Lymphocytes % (Manual) 12 L Monocytes % Monocytes % (Manual) 14 H Eosinophils % Basophils % Basophils % (Manual) 1 Myelocytes % (Manual) 2 H Nucleated Red Blood Cells % 0.0 Immature Granulocytes # 0.090 H Neutrophils # Lymphocytes (Manual) 1.0 Lymphocytes # Monocytes # Monocytes # (Manual) 1.2 H Eosinophils # Basophils # Basophils # (Manual) 0.0 Myelocytes # 0.1 H Nucleated Red Blood Cells # Platelet Estimate DECREASED Polychromasia 1+ Hypochromasia 1+ Poikilocytosis 1+ Anisocytosis 1+ Macrocytosis 1+ Target Cells 1+ Prothrombin Time 24.6 #H Prothrombin Time Ratio 1.9 INR International Normalized Ratio 2.21 Activated Partial Thromboplast Time 53.4 H Sodium Level 121 L Potassium Level 4.8 Chloride Level 87 L Carbon Dioxide Level 24 Anion Gap 10 Blood Urea Nitrogen 6 L Creatinine 0.52 L Est Glomerular Filtrat Rate mL/min > 60 Glucose Level 100 Calcium Level 9.0 Iron Level 179 H Total Iron Binding Capacity 231 L Percent Iron Saturation 77 H Total Bilirubin 16.1 H Direct Bilirubin 11.90 H Indirect Bilirubin 4.2 H Aspartate Amino Transf (AST/SGOT) 409 H Alanine Aminotransferase (ALT/SGPT) 142 H Alkaline Phosphatase 301 H Ammonia 10 Troponin I < 0.012 B-Type Natriuretic Peptide 180 H Total Protein 7.7 Albumin 3.2 L Globulin 4.50 H Albumin/Globulin Ratio 0.71 Lipase 543 H Ethyl Alcohol Level 16.0 H Hepatitis B Surface Antigen NEGATIVE Hepatitis B Core Total Antibody NEGATIVE Hepatitis C Antibody REACTIVE H Urine Random Sodium < 13 L Medications Medication Current Medications Paroxetine HCl (Paxil) 30 mg HS PO ; Start 10/26/18 at 21:00 Spironolactone (Aldactone) 50 mg DAILY PO Last administered on 10/27/18at 08:23; Admin Dose 50 MG; Start 10/27/18 at 09:00 Folic Acid (Folic Acid) 1 mg DAILY PO Last administered on 10/27/18at 08:23; Admin Dose 1 MG; Start 10/27/18 at 09:00 Thiamine HCl (Vitamin B1) 100 mg DAILY PO Last administered on 10/27/18at 08:23; Admin Dose 100 MG; Start 10/27/18 at 09:00 Multivitamins Therapeutic (Theragran) 1 tab DAILY PO Last administered on 10/27/18at 08:23; Admin Dose 1 TAB; Start 10/27/18 at 09:00 Lorazepam (Ativan) 1 mg Q4H PRN IV withdrawal, seizures; Start 10/26/18 at 19:30 Lorazepam (Ativan) 1 mg Q8H IV Last administered on 10/27/18at 03:56; Admin Dose 1 MG; Start 10/26/18 at 19:30 IV Flush (NS 3 ml) 3 ml PER PROTOCOL IV ; Start 10/26/18 at 19:30 Ondansetron HCl (Zofran Inj) 4 mg Q6H PRN IV NAUSEA/VOMITING; Start 10/26/18 at 19:30 Morphine Sulfate (morphine) 2 mg Q4H PRN IV .PAIN 7-10; Start 10/26/18 at 19:30 Docusate Sodium (Colace) 100 mg Q12H PRN PO .CONSTIPATION; Start 10/26/18 at 1 9:30 Magnesium Hydroxide (Milk Of Mag) 30 ml DAILY PRN PO .CONSTIPATION; Start 10/26/18 at 19:30 Lisinopril (Zestril) 10 mg BID PO Last administered on 10/27/18at 08:23; Admin Dose 10 MG; Start 10/27/18 at 09:00 BUCK CARO MD Oct 27, 2018 08:44
[2018-10-27] MEDS ORDERED: LISINOPRIL 10 MG TAB PO SCH (09:00)
[2018-10-27] MEDS: SOD CHLORIDE 0.9% 1,000 ML IV SCH (11:13)
[2018-10-27] MEDS: ALBUMIN HUMAN 25% 100 ML IV SCH ×2 (11:13→18:38)
[2018-10-27] MEDS: SODIUM CHLORIDE 1 GM TAB PO SCH ×2 (13:09→21:16)
--- NOTE | 2018-10-27 14:16 | CONS ---
Assessment/Plan Assessment/Plan Hospital Course (Demo Recall) Summary Assessment and Plan: Assessment: Alcoholic hepatitis function of 8.4 Elevated LFTs with direct hyperbilirubinemia -Rule out obstruction versus hepatocellular disease. Normocytic anemia Thrombus cytopenia Coagulopathy EtOH abuse Obesity Hyponatremia Plan: MRCP to rule out common bile duct obstruction We will start Solu-Medrol 40 mg daily Vitamin K 10 mg SQ x 3 days Start lactulose 20 mg po bid (titrate to 3 BMs per day) Continue to monitor labs Patient seen in collaboration with Dr. Nuñez CC: LASHON NUÑEZ MD ; Consultation Date/Type/Reason Admit Date/Time Oct 26, 2018 at 17:57 Date of Consultation: Oct 27, 2018 Type of Consult GI Reason for Consultation Elevated LFTs with hyperbilirubinemia Date/Time of Note DATE: 10/27/18 TIME: 14:02 Hx of Present Illness This is a 53-year-old L who is a poor historian known past history of EtOH abuse patient states he drinks up to 8 beers per day for the past 5 years last drink was 2 days ago. Presented to the ED with complaints of worsening jaundice here he underwent lab studies showing normocytic anemia, thrombocytopenia, coagulopathy, elevated LFTs and extremely elevated direct hyperbilirubinemia. Serology was obtained patient is negative for hepatitis B but does show reactive hepatitis C antibody currently RNA is pending. Patient denies known history of hepatitis C he denies IV or intranasal drug use no known sexual exposure to hepatitis C and denies previous blood transfusions. Imaging was also obtained a bladder ultrasound reveals hepatomegaly with fatty metamorphosis of the liver, sludge and small gallstones in the gallbladder, mild gallbladder wall thickening query cholecystitis. Pancreatic pancreas is not visualized. Lipase on admission was 543 currently patient denies nausea/vomiting there is no abdominal pain with palpation I calculated his discriminant function, the result of 58 point Review of Systems: A 12 system, review was conducted and is negative except as noted in the HPI or here. Past Medical History Home Meds Reported Medications Spironolactone* (Aldactone*) 25 Mg Tablet, 25 MG PO DAILY, #30 TAB 10/26/18 Folic Acid (Fa-8) 0.8 Mg Tablet, 0.8 MG PO DAILY, TAB 10/26/18 Spironolactone* (Aldactone*) 25 Mg Tablet, 25 MG PO DAILY, #30 TAB 10/26/18 Paroxetine Hcl* (Paxil*) 30 Mg Tablet, 30 MG PO HS, TAB 10/26/18 Lisinopril* (Lisinopril*) 30 Mg Tablet, 30 MG PO DAILY, #30 TAB 10/26/18 Discontinued Reported Medications Lisinopril* (Lisinopril*) 30 Mg Tablet, 30 MG PO DAILY, #30 TAB 08/19/18 Paroxetine Hcl* (Paxil*) 20 Mg Tablet, 20 MG PO DAILY, TAB 08/19/18 Discontinued Scripts Cyclobenzaprine Hcl* (Cyclobenzaprine Hcl*) 10 Mg Tablet, 10 MG PO TID, #15 TAB Prov:TANGELA KIMBALL PA-C 09/14/18 Naproxen* (Naprosyn*) 500 Mg Tablet, 500 MG PO BID PRN for PAIN AND/OR INFLAMMATION, #30 TAB Prov:TANGELA KIMBALL PA-C 09/14/18 Metronidazole* (Flagyl*) 500 Mg Tablet, 500 MG PO TID for 7 Days, TAB Prov:TANGELA KIMBALL PA-C 09/14/18 Ciprofloxacin Hcl* (Ciprofloxacin Hcl*) 500 Mg Tablet, 500 MG PO BID for 7 Days, TAB Prov:TANGELA KIMBALL PA-C 09/14/18 Fluticasone Propionate* (Fluticasone Propionate* Nasal) 50 Mcg/[place] - 16 Gm [place].susp, 1 SPRAY NASAL BID for 7 Days, #1 BOTTLE 6 Refills Prov:PRINCE PENA MD 08/22/18 Medications Current Medications Paroxetine HCl (Paxil) 30 mg HS PO ; Start 10/26/18 at 21:00 Spironolactone (Aldactone) 50 mg DAILY PO Last administered on 10/27/18at 08:23; Admin Dose 50 MG; Start 10/27/18 at 09:00 Folic Acid (Folic Acid) 1 mg DAILY PO Last administered on 10/27/18at 08:23; Admin Dose 1 MG; Start 10/27/18 at 09:00 Thiamine HCl (Vitamin B1) 100 mg DAILY PO Last administered on 10/27/18at 08:23; Admin Dose 100 MG; Start 10/27/18 at 09:00 Multivitamins Therapeutic (Theragran) 1 tab DAILY PO Last administered on 10/27/18 08:23; Admin Dose 1 TAB; Start 10/27/18 at 09:00 Lorazepam (Ativan) 1 mg Q4H PRN IV withdrawal, seizures; Start 10/26/18 at 19:30 Lorazepam (Ativan) 1 mg Q8H IV Last administered on 10/27/18 13:09; Admin Dose 1 MG; Start 10/26/18 at 19:30 IV Flush (NS 3 ml) 3 ml PER PROTOCOL IV ; Start 10/26/18 at 19:30 Ondansetron HCl (Zofran Inj) 4 mg Q6H PRN IV NAUSEA/VOMITING; Start 10/26/18 at 19:30 Morphine Sulfate (morphine) 2 mg Q4H PRN IV .PAIN 7-10; Start 10/26/18 at 19:30 Docusate Sodium (Colace) 100 mg Q12H PRN PO .CONSTIPATION; Start 10/26/18 at 1 9:30 Magnesium Hydroxide (Milk Of Mag) 30 ml DAILY PRN PO .CONSTIPATION; Start 10/26/18 at 19:30 Lisinopril (Zestril) 10 mg BID PO Last administered on 10/27/18 08:23; Admin Dose 10 MG; Start 10/27/18 at 09:00 Albumin Human 100 ml @ 100 mls/hr Q8H IV Last administered on 10/27/18 11:13; Admin Dose 100 MLS/HR; Start 10/27/18 at 10:00; Stop 10/28/18 at 02:59 Sodium Chloride (Nacl) 1 gm TID PO Last administered on 10/27/18 13:09; Admin Dose 1 GM; Start 10/27/18 at 13:00 Sodium Chloride 1,000 ml @ 60 mls/hr [id number] IV Last administered on 10/27/18 11:13; Admin Dose 60 MLS/HR; Start 10/27/18 at 10:00 Allergies: Coded Allergies: No Known Allergy (Unverified , 10/26/18) Past Surgical History Past Surgical Hx: no surgical history Social History Alcohol Use: other (daily) Smoking Status: Never smoker Drug Use: none Exam/Review of Systems Exam Vitals Vital Signs Date Temp Pulse Resp B/P (MAP) Pulse Ox O2 O2 Flow FiO2 Time Delivery Rate 10/27/18 96 12:07 10/27/18 98.4 20 118/56 99 Room Air 11:00 (76) Exam PHYSICAL EXAMINATION: GENERAL: Well developed, well nourished, alert & oriented x 3, in no acute distress SKIN: Duration 2 right eyebrow, multiple bruises on body EYES: Pupils equal reactive to light, no discharge. EARS/NOSE AND THROAT: Ears normal, nose normal, oropharynx normal NECK: Supple, no masses CHEST: Inspection within normal limits. CARDIOVASCULAR: Heart: Regular rate and rhythm RESPIRATORY: Lungs clear to auscultation GASTROINTESTINAL AND LIVER: Abdomen: Soft, non tenderness, distended, no hernias, no guarding, no rebound tenderness, normoactive bowel sounds. Rectal: Deferred. EXTREMITIES: No edema Results Result Diagram: 10/27/18 0738 10/27/18 0738 Results 24hrs Laboratory Tests Test 10/26/18 16:56 10/27/18 02:00 10/27/18 07:38 White Blood Count 8.6 # 7.6 Red Blood Count 2.70 #L 2.42 L Hemoglobin 9.2 #L 8.3 L Hematocrit 25.5 #L 23.0 L Mean Corpuscular Volume 94.4 95.0 Mean Corpuscular Hemoglobin 34.1 H 34.3 H Mean Corpuscular Hemoglobin Concent 36.1 36.1 Red Cell Distribution Width 17.2 H 17.2 H Platelet Count 117 #L 114 L Mean Platelet Volume 10.1 10.4 Immature Granulocytes % 1.000 H 0.900 H Neutrophils % 57.8 Segmented Neutrophils % (Manual) 71 Lymphocytes % 25.2 Lymphocytes % (Manual) 12 L Monocytes % 13.4 H Monocytes % (Manual) 14 H Eosinophils % 1.8 Basophils % 0.9 Basophils % (Manual) 1 Myelocytes % (Manual) 2 H Nucleated Red Blood Cells % 0.0 0.0 Immature Granulocytes # 0.090 H 0.070 H Neutrophils # 4.4 Lymphocytes (Manual) 1.0 Lymphocytes # 1.9 Monocytes # 1.0 H Monocytes # (Manual) 1.2 H Eosinophils # 0.1 Basophils # 0.1 Basophils # (Manual) 0.0 Myelocytes # 0.1 H Nucleated Red Blood Cells # 0.0 Platelet Estimate DECREASED Polychromasia 1+ Hypochromasia 1+ Poikilocytosis 1+ Anisocytosis 1+ Macrocytosis 1+ Target Cells 1+ Prothrombin Time 24.6 #H Prothrombin Time Ratio 1.9 INR International Normalized Ratio 2.21 Activated Partial Thromboplast Time 53.4 H Sodium Level 121 L 121 L Potassium Level 4.8 4.6 Chloride Level 87 L 86 L Carbon Dioxide Level 24 25 Anion Gap 10 10 Blood Urea Nitrogen 6 L 11 Creatinine 0.52 L 0.64 Est Glomerular Filtrat Rate mL/min > 60 > 60 Glucose Level 100 93 Calcium Level 9.0 8.5 Iron Level 179 H Total Iron Binding Capacity 231 L Percent Iron Saturation 77 H Total Bilirubin 16.1 H 13.8 H Direct Bilirubin 11.90 H 10.00 H Indirect Bilirubin 4.2 H 3.8 H Aspartate Amino Transf (AST/SGOT) 409 H 333 H Alanine Aminotransferase (ALT/SGPT) 142 H 118 H Alkaline Phosphatase 301 H 314 H Ammonia 10 Troponin I < 0.012 B-Type Natriuretic Peptide 180 H Total Protein 7.7 7.0 Albumin 3.2 L 2.8 L Globulin 4.50 H 4.20 H Albumin/Globulin Ratio 0.71 0.66 Lipase 543 H Ethyl Alcohol Level 16.0 H Hepatitis B Surface Antigen NEGATIVE Hepatitis B Core Total Antibody NEGATIVE Hepatitis C Antibody REACTIVE H Urine Random Sodium < 13 L Osmolality 455 H Magnesium Level 1.9 Thyroid Stimulating Hormone (TSH) 1.550 Free Thyroxine 1.69 Medications Medication Current Medications Paroxetine HCl (Paxil) 30 mg HS PO ; Start 10/26/18 at 21:00 Spironolactone (Aldactone) 50 mg DAILY PO Last administered on 10/27/18 08:23; Admin Dose 50 MG; Start 10/27/18 at 09:00 Folic Acid (Folic Acid) 1 mg DAILY PO Last administered on 10/27/18 08:23; Admin Dose 1 MG; Start 10/27/18 at 09:00 Thiamine HCl (Vitamin B1) 100 mg DAILY PO Last administered on 10/27/18 08:23; Admin Dose 100 MG; Start 10/27/18 at 09:00 Multivitamins Therapeutic (Theragran) 1 tab DAILY PO Last administered on 10/27/18 08:23; Admin Dose 1 TAB; Start 10/27/18 at 09:00 Lorazepam (Ativan) 1 mg Q4H PRN IV withdrawal, seizures; Start 10/26/18 at 19:30 Lorazepam (Ativan) 1 mg Q8H IV Last administered on 10/27/18 13:09; Admin Dose 1 MG; Start 10/26/18 at 19:30 IV Flush (NS 3 ml) 3 ml PER PROTOCOL IV ; Start 10/26/18 at 19:30 Ondansetron HCl (Zofran Inj) 4 mg Q6H PRN IV NAUSEA/VOMITING; Start 10/26/18 at 19:30 Morphine Sulfate (morphine) 2 mg Q4H PRN IV .PAIN 7-10; Start 10/26/18 at 19:30 Docusate Sodium (Colace) 100 mg Q12H PRN PO .CONSTIPATION; Start 10/26/18 at 19:30 Magnesium Hydroxide (Milk Of Mag) 30 ml DAILY PRN PO .CONSTIPATION; Start 10/26/18 at 19:30 Lisinopril (Zestril) 10 mg BID PO Last administered on 10/27/18 08:23; Admin Dose 10 MG; Start 10/27/18 at 09:00 Albumin Human 100 ml @ 100 mls/hr Q8H IV Last administered on 10/27/18 11:13; Admin Dose 100 MLS/HR; Start 10/27/18 at 10:00; Stop 10/28/18 at 02:59 Sodium Chloride (Nacl) 1 gm TID PO Last administered on 10/27/18 13:09; Admin Dose 1 GM; Start 10/27/18 at 13:00 Sodium Chloride 1,000 ml @ 60 mls/hr [id number] IV Last administered on 10/27/18 11:13; Admin Dose 60 MLS/HR; Start 10/27/18 at 10:00 LUDWIG LOPEZ Oct 27, 2018 14:15
[2018-10-27] MEDS ORDERED: LACTULOSE 30ML CUP PO PRN (14:30)
[2018-10-27] MEDS: METHYLPREDNISOLONE 40 MG INJ IV SCH (14:30)
--- NOTE | 2018-10-27 16:12 | PN ---
Date/Time of Note Date/Time of Note DATE: 10/27/18 TIME: 16:11 Assessment/Plan VTE Prophylaxis Risk [place] [facility] [place] risk: 1 SCD applied [place] [facility] [place] Yes Pharmacological prophylaxis: other Pharm contraindication: liver dx Lines/Catheters IV Catheter Type (from [facility]): [place] [facility] Urinary Cath still in place: No Assessment/Plan Assessment/Plan 1. Alcoholic liver disease, on steroid and lactulose 2. Alcohol withdrawal, on thiamine, folic acid, ativan prn 3. Normocytic anemia, follow up with H/H 4. Thrombocytopenia, alcohol related, follow up with PLT 5. Coagulopathy, due to alcoholic liver disease 6. Obesity 7. Hyponatremia, IVF with NS, free water restriction Result Diagram: 10/27/1838 10/27/1838 Results 24hrs Laboratory Tests Test 10/26/18 16:56 10/27/18 02:00 10/27/18 07:38 White Blood Count 8.6 # 7.6 Red Blood Count 2.70 #L 2.42 L Hemoglobin 9.2 #L 8.3 L Hematocrit 25.5 #L 23.0 L Mean Corpuscular Volume 94.4 95.0 Mean Corpuscular Hemoglobin 34.1 H 34.3 H Mean Corpuscular Hemoglobin Concent 36.1 36.1 Red Cell Distribution Width 17.2 H 17.2 H Platelet Count 117 #L 114 L Mean Platelet Volume 10.1 10.4 Immature Granulocytes % 1.000 H 0.900 H Neutrophils % 57.8 Segmented Neutrophils % (Manual) 71 Lymphocytes % 25.2 Lymphocytes % (Manual) 12 L Monocytes % 13.4 H Monocytes % (Manual) 14 H Eosinophils % 1.8 Basophils % 0.9 Basophils % (Manual) 1 Myelocytes % (Manual) 2 H Nucleated Red Blood Cells % 0.0 0.0 Immature Granulocytes # 0.090 H 0.070 H Neutrophils # 4.4 Lymphocytes (Manual) 1.0 Lymphocytes # 1.9 Monocytes # 1.0 H Monocytes # (Manual) 1.2 H Eosinophils # 0.1 Basophils # 0.1 Basophils # (Manual) 0.0 Myelocytes # 0.1 H Nucleated Red Blood Cells # 0.0 Platelet Estimate DECREASED Polychromasia 1+ Hypochromasia 1+ Poikilocytosis 1+ Anisocytosis 1+ Macrocytosis 1+ Target Cells 1+ Prothrombin Time 24.6 #H Prothrombin Time Ratio 1.9 INR International Normalized Ratio 2.21 Activated Partial Thromboplast Time 53.4 H Sodium Level 121 L 121 L Potassium Level 4.8 4.6 Chloride Level 87 L 86 L Carbon Dioxide Level 24 25 Anion Gap 10 10 Blood Urea Nitrogen 6 L 11 Creatinine 0.52 L 0.64 Est Glomerular Filtrat Rate mL/min > 60 > 60 Glucose Level 100 93 Calcium Level 9.0 8.5 Iron Level 179 H Total Iron Binding Capacity 231 L Percent Iron Saturation 77 H Total Bilirubin 16.1 H 13.8 H Direct Bilirubin 11.90 H 10.00 H Indirect Bilirubin 4.2 H 3.8 H Aspartate Amino Transf (AST/SGOT) 409 H 333 H Alanine Aminotransferase (ALT/SGPT) 142 H 118 H Alkaline Phosphatase 301 H 314 H Ammonia 10 Troponin I < 0.012 B-Type Natriuretic Peptide 180 H Total Protein 7.7 7.0 Albumin 3.2 L 2.8 L Globulin 4.50 H 4.20 H Albumin/Globulin Ratio 0.71 0.66 Lipase 543 H Ethyl Alcohol Level 16.0 H Hepatitis B Surface Antigen NEGATIVE Hepatitis B Core Total Antibody NEGATIVE Hepatitis C Antibody REACTIVE H Urine Random Sodium < 13 L Osmolality 247 L Magnesium Level 1.9 Thyroid Stimulating Hormone (TSH) 1.550 Free Thyroxine 1.69 Subjective 24 Hr Interval Summary Free Text/Dictation alert but nervous with tremors Exam/Review of Systems Exam Vitals Vital Signs Date Temp Pulse Resp B/P (MAP) Pulse Ox O2 O2 Flow FiO2 Time Delivery Rate 10/27/18 98.3 110 20 135/77 99 Room Air 15:21 (96) Constitutional: alert, oriented, well developed Psych: no complaints, nl mood/affect Head: normocephalic, atraumatic Eyes: nl conjunctiva, EOMI, nl lids ENMT: nl external ears & nose, nl lips & teeth, nl nasal mucosa & septum Neck: supple, non-tender Respiratory: clear to auscultation, normal air movement; No congested cough, No crackles/rales, No diminished breath sounds, No intercostal retraction, No labored breathing, No respirations, No tactile fremitus, No wheezing, No other Cardiovascular: regular rate and rhythm, nl pulses; No bruits, No diastolic murmur, No edema, No gallop, No irregular rhythm, No jugular venous distention (JVD), No murmurs/extra sounds, No rub, No systolic murmur, No S3, No S4, No other Gastrointestinal: soft, nl liver, spleen Musculoskeletal: nl extremities to inspection Extremities: normal pulses; No calf tenderness, No cyanosis, No clubbing, No edema, No pitting pedal edema, No palpable cord, No tenderness, No other 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: PRINCIPAL STRATEGIST II-XII intact, nl mental status, nl speech, nl strength Results Results 24hrs Laboratory Tests Test 10/26/18 16:56 10/27/18 02:00 10/27/18 07:38 White Blood Count 8.6 # 7.6 Red Blood Count 2.70 #L 2.42 L Hemoglobin 9.2 #L 8.3 L Hematocrit 25.5 #L 23.0 L Mean Corpuscular Volume 94.4 95.0 Mean Corpuscular Hemoglobin 34.1 H 34.3 H Mean Corpuscular Hemoglobin Concent 36.1 36.1 Red Cell Distribution Width 17.2 H 17.2 H Platelet Count 117 #L 114 L Mean Platelet Volume 10.1 10.4 Immature Granulocytes % 1.000 H 0.900 H Neutrophils % 57.8 Segmented Neutrophils % (Manual) 71 Lymphocytes % 25.2 Lymphocytes % (Manual) 12 L Monocytes % 13.4 H Monocytes % (Manual) 14 H Eosinophils % 1.8 Basophils % 0.9 Basophils % (Manual) 1 Myelocytes % (Manual) 2 H Nucleated Red Blood Cells % 0.0 0.0 Immature Granulocytes # 0.090 H 0.070 H Neutrophils # 4.4 Lymphocytes (Manual) 1.0 Lymphocytes # 1.9 Monocytes # 1.0 H Monocytes # (Manual) 1.2 H Eosinophils # 0.1 Basophils # 0.1 Basophils # (Manual) 0.0 Myelocytes # 0.1 H Nucleated Red Blood Cells # 0.0 Platelet Estimate DECREASED Polychromasia 1+ Hypochromasia 1+ Poikilocytosis 1+ Anisocytosis 1+ Macrocytosis 1+ Target Cells 1+ Prothrombin Time 24.6 #H Prothrombin Time Ratio 1.9 INR International Normalized Ratio 2.21 Activated Partial Thromboplast Time 53.4 H Sodium Level 121 L 121 L Potassium Level 4.8 4.6 Chloride Level 87 L 86 L Carbon Dioxide Level 24 25 Anion Gap 10 10 Blood Urea Nitrogen 6 L 11 Creatinine 0.52 L 0.64 Est Glomerular Filtrat Rate mL/min > 60 > 60 Glucose Level 100 93 Calcium Level 9.0 8.5 Iron Level 179 H Total Iron Binding Capacity 231 L Percent Iron Saturation 77 H Total Bilirubin 16.1 H 13.8 H Direct Bilirubin 11.90 H 10.00 H Indirect Bilirubin 4.2 H 3.8 H Aspartate Amino Transf (AST/SGOT) 409 H 333 H Alanine Aminotransferase (ALT/SGPT) 142 H 118 H Alkaline Phosphatase 301 H 314 H Ammonia 10 Troponin I < 0.012 B-Type Natriuretic Peptide 180 H Total Protein 7.7 7.0 Albumin 3.2 L 2.8 L Globulin 4.50 H 4.20 H Albumin/Globulin Ratio 0.71 0.66 Lipase 543 H Ethyl Alcohol Level 16.0 H Hepatitis B Surface Antigen NEGATIVE Hepatitis B Core Total Antibody NEGATIVE Hepatitis C Antibody REACTIVE H Urine Random Sodium < 13 L Osmolality 247 L Magnesium Level 1.9 Thyroid Stimulating Hormone (TSH) 1.550 Free Thyroxine 1.69 Medications Medication Current Medications Paroxetine HCl (Paxil) 30 mg HS PO ; Start 10/26/18 at 21:00 Spironolactone (Aldactone) 50 mg DAILY PO Last administered on 10/27/18 08:23; Admin Dose 50 MG; Start 10/27/18 at 09:00 Folic Acid (Folic Acid) 1 mg DAILY PO Last administered on 10/27/18 08:23; Admin Dose 1 MG; Start 10/27/18 at 09:00 Thiamine HCl (Vitamin B1) 100 mg DAILY PO Last administered on 10/27/18 08:23; Admin Dose 100 MG; Start 10/27/18 at 09:00 Multivitamins Therapeutic (Theragran) 1 tab DAILY PO Last administered on 10/27/18 08:23; Admin Dose 1 TAB; Start 10/27/18 at 09:00 Lorazepam (Ativan) 1 mg Q4H PRN IV withdrawal, seizures; Start 10/26/18 at 19:30 Lorazepam (Ativan) 1 mg Q8H IV Last administered on 10/27/18 13:09; Admin Dose 1 MG; Start 10/26/18 at 19:30 IV Flush (NS 3 ml) 3 ml PER PROTOCOL IV ; Start 10/26/18 at 19:30 Ondansetron HCl (Zofran Inj) 4 mg Q6H PRN IV NAUSEA/VOMITING; Start 10/26/18 at 19:30 Morphine Sulfate (morphine) 2 mg Q4H PRN IV .PAIN 7-10; Start 10/26/18 at 19:30 Docusate Sodium (Colace) 100 mg Q12H PRN PO .CONSTIPATION; Start 10/26/18 at 19:30 Magnesium Hydroxide (Milk Of Mag) 30 ml DAILY PRN PO .CONSTIPATION; Start 10/26/18 at 19:30 Lisinopril (Zestril) 10 mg BID PO Last administered on 10/27/18at 08:23; Admin Dose 10 MG; Start 10/27/18 at 09:00 Albumin Human 100 ml @ 100 mls/hr Q8H IV Last administered on 10/27/18at 11:13; Admin Dose 100 MLS/HR; Start 10/27/18 at 10:00; Stop 10/28/18 at 02:59 Sodium Chloride (Nacl) 1 gm TID PO Last administered on 10/27/18at 13:09; Admin Dose 1 GM; Start 10/27/18 at 13:00 Sodium Chloride 1,000 ml @ 60 mls/hr [id number] IV Last administered on 10/27/18at 11:13; Admin Dose 60 MLS/HR; Start 10/27/18 at 10:00 Methylprednisolone Sodium Succinate (Solu-Medrol) 40 mg DAILY IV ; Start 10/27/18 at 14:30 Lactulose (Enulose) 20 gm BID PRN PO CONSTIPATION; Start 10/27/18 at 14:30 MACARENA MOONEY MD Oct 27, 2018 16:12
[2018-10-27] MEDS: LORAZEPAM 2 MG INJ IV PRN (17:13)
[2018-10-27] MEDS: CHLORDIAZEPOXIDE 25 MG CAP PO SCH (21:16)
[2018-10-27] MEDS: PAROXETINE 10 MG TAB PO SCH (22:21)
[2018-10-27] MEDS ORDERED: HALOPERIDOL 5 MG INJ IM ONE (22:30)
[2018-10-28] VITALS (15 sets, daily range): BP systolic 88–148; BP diastolic 47–82; PULSE 78–114; RESP 16–20
[2018-10-28] MEDS: LORAZEPAM 2 MG INJ IV PRN (00:24)
[2018-10-28] MEDS: ALBUMIN HUMAN 25% 100 ML IV SCH (02:33)
[2018-10-28] MEDS: SOD CHLORIDE 0.9% 1,000 ML IV SCH ×2 (02:34→19:20)
[2018-10-28] MEDS: LORAZEPAM 2 MG INJ IV SCH ×3 (04:33→19:30)
[2018-10-28] MEDS: CHLORDIAZEPOXIDE 25 MG CAP PO SCH ×3 (06:00→22:20)
[2018-10-28] MEDS: SODIUM CHLORIDE 1 GM TAB PO SCH ×3 (09:00→22:20)
[2018-10-28] MEDS: METHYLPREDNISOLONE 40 MG INJ IV SCH (10:01)
[2018-10-28] MEDS: MULTIVITAMINS THERAPEUTIC TAB PO SCH (10:01)
[2018-10-28] MEDS: LISINOPRIL 10 MG TAB PO SCH ×2 (10:02→22:41)
[2018-10-28] MEDS: FOLIC ACID 1 MG TAB PO SCH (10:02)
[2018-10-28] MEDS: THIAMINE 100 MG TAB PO SCH (10:02)
[2018-10-28] MEDS: SPIRONOLACTONE 25 MG TAB PO SCH (10:02)
--- NOTE | 2018-10-28 12:36 | PN ---
Date/Time of Note Date/Time of Note DATE: 10/28/18 TIME: 12:29 Assessment/Plan VTE Prophylaxis Risk score (from [facility] [place])>0 risk: 3 SCD applied (from Ns): Yes Pharmacological prophylaxis: other (scds) Lines/Catheters IV C[facility]ter Type (from [facility]): Saline Lock Urinary Cath still in place: No Assessment/Plan Hospital Course Summary Assessment and Plan: Assessment: Alcoholic hepatitis function of 58.4 Hepatomegaly and fatty liver 2/2 to ETOH abuse Elevated LFTs - trending down Direct hyperbilirubinemia- stable -Rule out obstruction versus hepatocellular disease. Hepatitis C AB- reactive- RNA pending Normocytic anemia Thrombus cytopenia Coagulopathy EtOH abuse Obesity Hyponatremia Plan: MRCP - pending Solu-Medrol 40 mg daily for a total of 28 days Vitamin K 10 mg SQ x 3 days Lactulose 20 mg po bid (titrate to 3 BMs per day) Continue to monitor labs Patient seen in collaboration with Dr. Nuñez/Enedina Subjective: Course reviewed with nursing staff Patient interviewed and examined All labs, imaging and other results reviewed The patient is very lethargic, lorazepam given about 10 min ago No over night events noted. No over signs of GI bleed. Maintain close observation,await MRCP results PHYSICAL EXAMINATION: GENERAL:Lethargic, obese, jaundice SKIN: Abrasion to right eyebrow, multiple bruises on body EYES: Pupils equal reactive to light, no discharge. EARS/NOSE AND THROAT: Ears normal, nose normal, oropharynx normal NECK: Supple, no masses CHEST: Inspection within normal limits. CARDIOVASCULAR: Heart: Regular rate and rhythm RESPIRATORY: Lungs clear to auscultation GASTROINTESTINAL AND LIVER: Abdomen: Soft, non tenderness, distended, no hernias, no guarding, no rebound tenderness, normoactive bowel sounds. Rectal: Deferred. EXTREMITIES: No edema Result Diagram: 10/28/18 0639 10/28/18 0639 Results 24hrs Laboratory Tests Test 10/28/18 06:39 White Blood Count 6.1 Red Blood Count 2.27 L Hemoglobin 7.8 L Hematocrit 21.7 L Mean Corpuscular Volume 95.6 Mean Corpuscular Hemoglobin 34.4 H Mean Corpuscular Hemoglobin Concent 35.9 Red Cell Distribution Width 17.9 H Platelet Count 100 L Mean Platelet Volume 10.0 Immature Granulocytes % 1.300 H Neutrophils % 58.3 Lymphocytes % 20.7 Monocytes % 16.9 H Eosinophils % 1.8 Basophils % 1.0 Nucleated Red Blood Cells % 0.0 Immature Granulocytes # 0.080 H Neutrophils # 3.6 Lymphocytes # 1.3 Monocytes # 1.0 H Eosinophils # 0.1 Basophils # 0.1 Nucleated Red Blood Cells # 0.0 Sodium Level 125 L Potassium Level 4.7 Chloride Level 93 L Carbon Dioxide Level 23 Anion Gap 9 Blood Urea Nitrogen 13 Creatinine 0.59 L Est Glomerular Filtrat Rate mL/min > 60 Glucose Level 83 Calcium Level 8.4 Total Bilirubin 13.8 H Direct Bilirubin 9.60 H Indirect Bilirubin 4.2 H Aspartate Amino Transf (AST/SGOT) 238 H Alanine Aminotransferase (ALT/SGPT) 95 H Alkaline Phosphatase 271 H Total Protein 6.5 Albumin 2.7 L Globulin 3.80 H Albumin/Globulin Ratio 0.71 Exam/Review of Systems Exam Vitals Vital Signs Date Temp Pulse Resp B/P (MAP) Pulse Ox O2 O2 Flow FiO2 Time Delivery Rate 10/28/18 97.8 78 18 98/55 (69) 96 Room Air 11:41 Intake and Output 10/27/18 10/27/18 10/28/18 1515:00 23:00 07:00 IntakeIntake Total 1300 ml BalanceBalance 1300 ml Results Results 24hrs Laboratory Tests Test 10/28/18 06:39 White Blood Count 6.1 Red Blood Count 2.27 L Hemoglobin 7.8 L Hematocrit 21.7 L Mean Corpuscular Volume 95.6 Mean Corpuscular Hemoglobin 34.4 H Mean Corpuscular Hemoglobin Concent 35.9 Red Cell Distribution Width 17.9 H Platelet Count 100 L Mean Platelet Volume 10.0 Immature Granulocytes % 1.300 H Neutrophils % 58.3 Lymphocytes % 20.7 Monocytes % 16.9 H Eosinophils % 1.8 Basophils % 1.0 Nucleated Red Blood Cells % 0.0 Immature Granulocytes # 0.080 H Neutrophils # 3.6 Lymphocytes # 1.3 Monocytes # 1.0 H Eosinophils # 0.1 Basophils # 0.1 Nucleated Red Blood Cells # 0.0 Sodium Level 125 L Potassium Level 4.7 Chloride Level 93 L Carbon Dioxide Level 23 Anion Gap 9 Blood Urea Nitrogen 13 Creatinine 0.59 L Est Glomerular Filtrat Rate mL/min > 60 Glucose Level 83 Calcium Level 8.4 Total Bilirubin 13.8 H Direct Bilirubin 9.60 H Indirect Bilirubin 4.2 H Aspartate Amino Transf (AST/SGOT) 238 H Alanine Aminotransferase (ALT/SGPT) 95 H Alkaline Phosphatase 271 H Total Protein 6.5 Albumin 2.7 L Globulin 3.80 H Albumin/Globulin Ratio 0.71 Medications Medication Current Medications Paroxetine HCl (Paxil) 30 mg HS PO Last administered on 10/27/18 22:21; Admin Dose 30 MG; Start 10/26/18 at 21:00 Spironolactone (Aldactone) 50 mg DAILY PO Last administered on 10/28/18 10:02; Admin Dose 50 MG; Start 10/27/18 at 09:00 Folic Acid (Folic Acid) 1 mg DAILY PO Last administered on 10/28/18 10:02; Admin Dose 1 MG; Start 10/27/18 at 09:00 Thiamine HCl (Vitamin B1) 100 mg DAILY PO Last administered on 10/28/18 10:02; Admin Dose 100 MG; Start 10/27/18 at 09:00 Multivitamins Therapeutic (Theragran) 1 tab DAILY PO Last administered on 10/28/18 10:01; Admin Dose 1 TAB; Start 10/27/18 at 09:00 Lorazepam (Ativan) 1 mg Q4H PRN IV withdrawal, seizures Last administered on 10/28/18 00:24; Admin Dose 1 MG; Start 10/26/18 at 19:30 Lorazepam (Ativan) 1 mg Q8H IV Last administered on 10/28/18 12:22; Admin Dose 1 MG; Start 10/26/18 at 19:30 IV Flush (NS 3 ml) 3 ml PER PROTOCOL IV ; Start 10/26/18 at 19:30 Ondansetron HCl (Zofran Inj) 4 mg Q6H PRN IV NAUSEA/VOMITING; Start 10/26/18 at 19:30 Morphine Sulfate (morphine) 2 mg Q4H PRN IV .PAIN 7-10; Start 10/26/18 at 19:30 Docusate Sodium (Colace) 100 mg Q12H PRN PO .CONSTIPATION; Start 10/26/18 at 19:30 Magnesium Hydroxide (Milk Of Mag) 30 ml DAILY PRN PO .CONSTIPATION; Start 10/26/18 at 19:30 Lisinopril (Zestril) 10 mg BID PO Last administered on 10/28/18 10:02; Admin Dose 10 MG; Start 10/27/18 at 09:00 Sodium Chloride (Nacl) 1 gm TID PO Last administered on 10/28/18 12:22; Admin Dose 1 GM; Start 10/27/18 at 13:00 Sodium Chloride 1,000 ml @ 60 mls/hr [id number] IV Last administered on 10/28/18 02:34; Admin Dose 60 MLS/HR; Start 10/27/18 at 10:00 Methylprednisolone Sodium Succinate (Solu-Medrol) 40 mg DAILY IV Last administered on 10/28/18 10:01; Admin Dose 40 MG; Start 10/27/18 at 14:30 Lactulose (Enulose) 20 gm BID PRN PO CONSTIPATION Last administered on 10/28/18 12:22; Admin Dose 20 GM; Start 10/27/18 at 14:30 Chlordiazepoxide (Librium) 50 mg Q8 PO Last administered on 10/27/18 21:16; Admin Dose 50 MG; Start 10/27/18 at 22:00; Stop 10/28/18 at 22:00 LUDWIG LOPEZ Oct 28, 2018 12:36
--- NOTE | 2018-10-28 13:30 | PN ---
Date/Time of Note Date/Time of Note DATE: 10/28/18 TIME: 13:27 Assessment/Plan VTE Prophylaxis Risk score (from [facility] [place])>0 risk: 3 SCD applied (from [facility] [place]): Yes Pharmacological prophylaxis: other Pharm contraindication: liver dx Lines/Catheters IV Catheter Type (from [facility]): Saline Lock Urinary Cath still in place: No Assessment/Plan Assessment/Plan 1. Alcohol withdrawal, on thiamine, folic acid, ativan prn, agitated and confused on soft restrain 2. Alcoholic liver disease, on steroid and lactulose, awaiting for MRCP 3. Normocytic anemia, follow up with H/H 4. Thrombocytopenia, alcohol related, follow up with PLT 5. Coagulopathy, due to alcoholic liver disease, vit K ordered per GI 6. Obesity 7. Hyponatremia, IVF with NS, free water restriction Result Diagram: 10/28/1863810/28/18 0639 Results 24hrs Laboratory Tests Test 10/28/18 06:39 White Blood Count 6.1 Red Blood Count 2.27 L Hemoglobin 7.8 L Hematocrit 21.7 L Mean Corpuscular Volume 95.6 Mean Corpuscular Hemoglobin 34.4 H Mean Corpuscular Hemoglobin Concent 35.9 Red Cell Distribution Width 17.9 H Platelet Count 100 L Mean Platelet Volume 10.0 Immature Granulocytes % 1.300 H Neutrophils % 58.3 Lymphocytes % 20.7 Monocytes % 16.9 H Eosinophils % 1.8 Basophils % 1.0 Nucleated Red Blood Cells % 0.0 Immature Granulocytes # 0.080 H Neutrophils # 3.6 Lymphocytes # 1.3 Monocytes # 1.0 H Eosinophils # 0.1 Basophils # 0.1 Nucleated Red Blood Cells # 0.0 Sodium Level 125 L Potassium Level 4.7 Chloride Level 93 L Carbon Dioxide Level 23 Anion Gap 9 Blood Urea Nitrogen 13 Creatinine 0.59 L Est Glomerular Filtrat Rate mL/min > 60 Glucose Level 83 Calcium Level 8.4 Total Bilirubin 13.8 H Direct Bilirubin 9.60 H Indirect Bilirubin 4.2 H Aspartate Amino Transf (AST/SGOT) 238 H Alanine Aminotransferase (ALT/SGPT) 95 H Alkaline Phosphatase 271 H Total Protein 6.5 Albumin 2.7 L Globulin 3.80 H Albumin/Globulin Ratio 0.71 Exam/Review of Systems Exam Vitals Vital Signs Date Temp Pulse Resp B/P (MAP) Pulse Ox O2 O2 Flow FiO2 Time Delivery Rate 10/28/18 98.0 16 96/47 (63) 98 Room Air 13:08 10/28/18 85 13:04 Intake and Output 10/27/18 10/27/18 10/28/18 1515:00 23:00 07:00 IntakeIntake Total 1300 ml BalanceBalance 1300 ml Constitutional: well developed, non-verbal, obese Head: normocephalic, atraumatic Eyes: nl conjunctiva, EOMI, nl lids, PERRL ENMT: nl external ears & nose, nl lips & teeth, nl nasal mucosa & septum Neck: supple, non-tender Respiratory: clear to auscultation, normal air movement; No congested cough, No crackles/rales, No diminished breath sounds, No intercostal retraction, No labored breathing, No respirations, No tactile frem itus, No wheezing, No other Cardiovascular: regular rate and rhythm, nl pulses; No bruits, No diastolic murmur, No edema, No gallop, No irregular rhythm, No jugular venous distention (JVD), No murmurs/extra sounds, No rub, No systolic murmur, No S3, No S4, No other Gastrointestinal: soft Musculoskeletal: nl extremities to inspection Extremities: normal pulses; No calf tenderness, No cyanosis, No clubbing, No edema, No pitting pedal edema, No palpable cord, No tenderness, No other 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: confused Results Results 24hrs Laboratory Tests Test 10/28/18 06:39 White Blood Count 6.1 Red Blood Count 2.27 L Hemoglobin 7.8 L Hematocrit 21.7 L Mean Corpuscular Volume 95.6 Mean Corpuscular Hemoglobin 34.4 H Mean Corpuscular Hemoglobin Concent 35.9 Red Cell Distribution Width 17.9 H Platelet Count 100 L Mean Platelet Volume 10.0 Immature Granulocytes % 1.300 H Neutrophils % 58.3 Lymphocytes % 20.7 Monocytes % 16.9 H Eosinophils % 1.8 Basophils % 1.0 Nucleated Red Blood Cells % 0.0 Immature Granulocytes # 0.080 H Neutrophils # 3.6 Lymphocytes # 1.3 Monocytes # 1.0 H Eosinophils # 0.1 Basophils # 0.1 Nucleated Red Blood Cells # 0.0 Sodium Level 125 L Potassium Level 4.7 Chloride Level 93 L Carbon Dioxide Level 23 Anion Gap 9 Blood Urea Nitrogen 13 Creatinine 0.59 L Est Glomerular Filtrat Rate mL/min > 60 Glucose Level 83 Calcium Level 8.4 Total Bilirubin 13.8 H Direct Bilirubin 9.60 H Indirect Bilirubin 4.2 H Aspartate Amino Transf (AST/SGOT) 238 H Alanine Aminotransferase (ALT/SGPT) 95 H Alkaline Phosphatase 271 H Total Protein 6.5 Albumin 2.7 L Globulin 3.80 H Albumin/Globulin Ratio 0.71 Medications Medication Current Medications Paroxetine HCl (Paxil) 30 mg HS PO Last administered on 10/27/18 22:21; Admin Dose 30 MG; Start 10/26/18 at 21:00 Spironolactone (Aldactone) 50 mg DAILY PO Last administered on 10/28/18 10:02; Admin Dose 50 MG; Start 10/27/18 at 09:00 Folic Acid (Folic Acid) 1 mg DAILY PO Last administered on 10/28/18 10:02; Admin Dose 1 MG; Start 10/27/18 at 09:00 Thiamine HCl (Vitamin B1) 100 mg DAILY PO Last administered on 10/28/18 10:02; Admin Dose 100 MG; Start 10/27/18 at 09:00 Multivitamins Therapeutic (Theragran) 1 tab DAILY PO Last administered on 10/28/18 10:01; Admin Dose 1 TAB; Start 10/27/18 at 09:00 Lorazepam (Ativan) 1 mg Q4H PRN IV withdrawal, seizures Last administered on 10/28/18 00:24; Admin Dose 1 MG; Start 10/26/18 at 19:30 Lorazepam (Ativan) 1 mg Q8H IV Last administered on 10/28/18 12:22; Admin Dose 1 MG; Start 10/26/18 at 19:30 IV Flush (NS 3 ml) 3 ml PER PROTOCOL IV ; Start 10/26/18 at 19:30 Ondansetron HCl (Zofran Inj) 4 mg Q6H PRN IV NAUSEA/VOMITING; Start 10/26/18 at 19:30 Morphine Sulfate (morphine) 2 mg Q4H PRN IV .PAIN 7-10; Start 10/26/18 at 19:30 Docusate Sodium (Colace) 100 mg Q12H PRN PO .CONSTIPATION; Start 10/26/18 at 19:30 Magnesium Hydroxide (Milk Of Mag) 30 ml DAILY PRN PO .CONSTIPATION; Start 10/26/18 at 19:30 Lisinopril (Zestril) 10 mg BID PO Last administered on 10/28/18at 10:02; Admin Dose 10 MG; Start 10/27/18 at 09:00 Sodium Chloride (Nacl) 1 gm TID PO Last administered on 10/28/18 12:22; Admin Dose 1 GM; Start 10/27/18 at 13:00 Sodium Chloride 1,000 ml @ 60 mls/hr [id number] IV Last administered on 10/28/18 02:34; Admin Dose 60 MLS/HR; Start 10/27/18 at 10:00 Methylprednisolone Sodium Succinate (Solu-Medrol) 40 mg DAILY IV Last administered on 10/28/18at 10:01; Admin Dose 40 MG; Start 10/27/18 at 14:30 Chlordiazepoxide (Librium) 50 mg Q8 PO Last administered on 10/27/18 21:16; Admin Dose 50 MG; Start 10/27/18 at 22:00; Stop 10/28/18 at 22:00 Lactulose (Enulose) 20 gm Q6 PO ; Start 10/28/18 at 18:00 MACARENA MOONEY MD Oct 28, 2018 13:30
--- NOTE | 2018-10-28 13:32 | PN ---
Date/Time of Note Date/Time of Note DATE: 10/28/18 TIME: 13:29 Assessment/Plan Lines/Catheters IV Catheter Type (from [facility]): Saline Lock Vazquez in Place (from [facility]): No Assessment/Plan Chief Complaint/Hosp Course 1. Thickened gallbladder wall with sludge and small stones. doubt this is secondary to acute cholecystitis. Patient has acute liver failure with cirrhosis and most probably edema of the gallbladder. However if still concerned will benefit from HIDA scan. -Close monitoring -Medical/GI optimization -Alcohol cessation highly encouraged -Antibiotics -HIDA if concern continues 2. Acute liver failure/Hepatitis with transaminitis, hyperbilirubinemia; currently on steroids -Trend labs -Medical/GI optimization -Alcohol cessation highly encouraged 3. Alcohol abuse -As above 4. Acute hyponatremia secondary to volume status: Mildly improved -Judicious fluid management 5. Anemia most likely chronic disease and iron deficiency, doubt acute blood loss -Monitor and treat per medical team 6. Elevated lipase questionable pancreatitis -Trend levels 7. BMI 39 -Encourage nutrition optimization -Encourage exercise 8. Hypoalbuminemia, multifactorial -Medical optimization (cirrhosis, nutrition, cessation of alcohol abuse) Thank you. Patient seen and examined in collaboration with Dr. Yuan Fleming. Subjective 24 Hr Interval Summary Somnolent. No fevers, chills, sob, congested cough, cp, palpitations, chiu, dizziness, nausea, vomiting, diarrhea, dysuria. Exam/Review of Systems Vital Signs Vitals Vital Signs Date Temp Pulse Resp B/P (MAP) Pulse Ox O2 O2 Flow FiO2 Time Delivery Rate 10/28/18 98.0 16 96/47 (63) 98 Room Air 13:08 10/28/18 85 13:04 Intake and Output 10/27/18 10/27/18 10/28/18 1515:00 23:00 07:00 IntakeIntake Total 1300 ml BalanceBalance 1300 ml Results Result Diagram: 10/28/18 0639 10/28/18 0639 ANALI BERUMEN NP Oct 28, 2018 13:32
--- NOTE | 2018-10-28 14:43 | CONS ---
Assessment/Plan Assessment/Plan Assessment/Plan (Daily) 1. Hyponatremia due to Hypervolemic Hyponatremia in setting of acute liver failure 2. Rule out SIADH 3. Acute hepatic failure 4. Biliary colic vs cholecystitis 5. H/o alcohol abuse Plan: Na improved to 125- s/p 1liter NS yesterday , Continue Na chloride tablet 1g lala PO BID Abdominal US iN ED showed The right kidney measures 10.8 cm. There is normal echogenicity of the right kidney. There is no solid right renal mass, hydronephrosis, or calculus. There is a benign 1 cm cyst in the upper to mid right kidney. Change lisinopirl to 10mg BID, Spironolactone 50mg po daily will follow up Consultation Date/Type/Reason Admit Date/Time Oct 26, 2018 at 17:57 Initial Consult Date 10/27/18 Type of Consult NEPHROLOGY Requesting Provider: PRINCE PENA MD Date/Time of Note DATE: 10/28/18 TIME: 14:43 Exam/Review of Systems Exam Vitals Vital Signs Date Temp Pulse Resp B/P (MAP) Pulse Ox O2 O2 Flow FiO2 Time Delivery Rate 10/28/18 98.0 16 96/47 (63) 98 Room Air 13:08 10/28/18 85 13:04 Intake and Output 10/27/18 10/27/18 10/28/18 1515:00 23:00 07:00 IntakeIntake Total 1300 ml BalanceBalance 1300 ml Exam GEN: no acute distress, + jaundice HEENT: KAYLYN, EOMI, + Jaundice Neck: Supple with full range of motion. No rigidity or meningismus Chest: Nontender Lungs: Clear to auscultation bilaterally no crackles rales or wheezing Heart: Normal S1-S2, Regular rhythm and rate. No murmur, S3, or S4 Abdomen: Soft , diffusely tender to palpation, distended, bowel sounds are present. Extremities: Normal to inspection, no edema no cyanosis, skin yellow Results Result Diagram: 10/28/18 0639 10/28/18 0639 Results 24hrs Laboratory Tests Test 10/28/18 06:39 White Blood Count 6.1 Red Blood Count 2.27 L Hemoglobin 7.8 L Hematocrit 21.7 L Mean Corpuscular Volume 95.6 Mean Corpuscular Hemoglobin 34.4 H Mean Corpuscular Hemoglobin Concent 35.9 Red Cell Distribution Width 17.9 H Platelet Count 100 L Mean Platelet Volume 10.0 Immature Granulocytes % 1.300 H Neutrophils % 58.3 Lymphocytes % 20.7 Monocytes % 16.9 H Eosinophils % 1.8 Basophils % 1.0 Nucleated Red Blood Cells % 0.0 Immature Granulocytes # 0.080 H Neutrophils # 3.6 Lymphocytes # 1.3 Monocytes # 1.0 H Eosinophils # 0.1 Basophils # 0.1 Nucleated Red Blood Cells # 0.0 Sodium Level 125 L Potassium Level 4.7 Chloride Level 93 L Carbon Dioxide Level 23 Anion Gap 9 Blood Urea Nitrogen 13 Creatinine 0.59 L Est Glomerular Filtrat Rate mL/min > 60 Glucose Level 83 Calcium Level 8.4 Total Bilirubin 13.8 H Direct Bilirubin 9.60 H Indirect Bilirubin 4.2 H Aspartate Amino Transf (AST/SGOT) 238 H Alanine Aminotransferase (ALT/SGPT) 95 H Alkaline Phosphatase 271 H Total Protein 6.5 Albumin 2.7 L Globulin 3.80 H Albumin/Globulin Ratio 0.71 Medications Medication Current Medications Paroxetine HCl (Paxil) 30 mg HS PO Last administered on 10/27/18 22:21; Admin Dose 30 MG; Start 10/26/18 at 21:00 Spironolactone (Aldactone) 50 mg DAILY PO Last administered on 10/28/18 10:02; Admin Dose 50 MG; Start 10/27/18 at 09:00 Folic Acid (Folic Acid) 1 mg DAILY PO Last administered on 10/28/18 10:02; Admin Dose 1 MG; Start 10/27/18 at 09:00 Thiamine HCl (Vitamin B1) 100 mg DAILY PO Last administered on 10/28/18 10:02; Admin Dose 100 MG; Start 10/27/18 at 09:00 Multivitamins Therapeutic (Theragran) 1 tab DAILY PO Last administered on 10/28/18 10:01; Admin Dose 1 TAB; Start 10/27/18 at 09:00 Lorazepam (Ativan) 1 mg Q4H PRN IV withdrawal, seizures Last administered on 10/28/18 00:24; Admin Dose 1 MG; Start 10/26/18 at 19:30 Lorazepam (Ativan) 1 mg Q8H IV Last administered on 10/28/18 12:22; Admin Dose 1 MG; Start 10/26/18 at 19:30 IV Flush (NS 3 ml) 3 ml PER PROTOCOL IV ; Start 10/26/18 at 19:30 Ondansetron HCl (Zofran Inj) 4 mg Q6H PRN IV NAUSEA/VOMITING; Start 10/26/18 at 19:30 Morphine Sulfate (morphine) 2 mg Q4H PRN IV .PAIN 7-10; Start 10/26/18 at 19:30 Docusate Sodium (Colace) 100 mg Q12H PRN PO .CONSTIPATION; Start 10/26/18 at 19:30 Magnesium Hydroxide (Milk Of Mag) 30 ml DAILY PRN PO .CONSTIPATION; Start 10/26/18 at 19:30 Lisinopril (Zestril) 10 mg BID PO Last administered on 10/28/18at 10:02; Admin Dose 10 MG; Start 10/27/18 at 09:00 Sodium Chloride (Nacl) 1 gm TID PO Last administered on 10/28/18 12:22; Admin Dose 1 GM; Start 10/27/18 at 13:00 Sodium Chloride 1,000 ml @ 60 mls/hr [id number] IV Last administered on 10/28/18 02:34; Admin Dose 60 MLS/HR; Start 10/27/18 at 10:00 Methylprednisolone Sodium Succinate (Solu-Medrol) 40 mg DAILY IV Last administered on 10/28/18at 10:01; Admin Dose 40 MG; Start 10/27/18 at 14:30 Chlordiazepoxide (Librium) 50 mg Q8 PO Last administered on 10/27/18 21:16; Admin Dose 50 MG; Start 10/27/18 at 22:00; Stop 10/28/18 at 22:00 Lactulose (Enulose) 20 gm Q6 PO ; Start 10/28/18 at 18:00 BUCK CARO MD Oct 28, 2018 14:43
[2018-10-28] MEDS: LACTULOSE 30ML CUP PO SCH (18:43)
[2018-10-28] MEDS: RIFAXIMIN 550 MG TAB PO SCH (22:20)
[2018-10-28] MEDS: PAROXETINE 10 MG TAB PO SCH (22:41)
[2018-10-29] VITALS (12 sets, daily range): BP systolic 106–133; BP diastolic 55–72; PULSE 89–109; RESP 16–19
[2018-10-29] MEDS: LACTULOSE 30ML CUP PO SCH ×4 (00:51→18:07)
[2018-10-29] MEDS: LORAZEPAM 2 MG INJ IV SCH ×3 (03:30→19:58)
[2018-10-29] MEDS: METHYLPREDNISOLONE 40 MG INJ IV SCH (08:50)
[2018-10-29] MEDS: LORAZEPAM 2 MG INJ IV PRN (08:50)
[2018-10-29] MEDS: RIFAXIMIN 550 MG TAB PO SCH ×2 (08:51→19:57)
[2018-10-29] MEDS: SODIUM CHLORIDE 1 GM TAB PO SCH ×3 (08:51→19:57)
[2018-10-29] MEDS: THIAMINE 100 MG TAB PO SCH (08:51)
[2018-10-29] MEDS: SPIRONOLACTONE 25 MG TAB PO SCH (08:51)
[2018-10-29] MEDS: LISINOPRIL 10 MG TAB PO SCH ×2 (08:51→19:58)
[2018-10-29] MEDS: FOLIC ACID 1 MG TAB PO SCH (08:51)
[2018-10-29] MEDS: MULTIVITAMINS THERAPEUTIC TAB PO SCH (08:51)
--- NOTE | 2018-10-29 09:53 | CONS ---
Assessment/Plan Assessment/Plan Assessment/Plan (Daily) 1. Hyponatremia due to Hypervolemic Hyponatremia in setting of acute liver failure 2. Rule out SIADH 3. Acute hepatic failure 4. Biliary colic vs cholecystitis 5. H/o alcohol abuse Plan: Na improved to 127- Continue Na chloride tablet 1g lala PO BID Abdominal US iN ED showed The right kidney measures 10.8 cm. There is normal echogenicity of the right kidney. There is no solid right renal mass, hydronephrosis, or calculus. There is a benign 1 cm cyst in the upper to mid right kidney. Change lisinopirl to 10mg BID, Spironolactone 50mg po daily will follow up Consultation Date/Type/Reason Admit Date/Time Oct 26, 2018 at 17:57 Initial Consult Date 10/27/18 Type of Consult NEPHROLOGY Requesting Provider: PRINCE PENA MD Date/Time of Note DATE: 10/29/18 TIME: 09:53 Exam/Review of Systems Exam Vitals Vital Signs Date Temp Pulse Resp B/P (MAP) Pulse Ox O2 O2 Flow FiO2 Time Delivery Rate 10/29/18 99 08:17 10/29/18 98.6 18 121/71 97 07:12 (88) 10/28/18 Room Air 22:20 Intake and Output 10/28/18 10/28/18 10/29/18 1515:00 23:00 07:00 IntakeIntake Total 1460 ml 250 ml OutputOutput Total 1300 ml 1000 ml BalanceBalance 160 ml -750 ml Exam GEN: no acute distress, + jaundice HEENT: KAYLYN, EOMI, + Jaundice Neck: Supple with full range of motion. No rigidity or meningismus Lungs: Clear to auscultation bilaterally no crackles rales or wheezing Heart: Normal S1-S2, Regular rhythm and rate. No murmur, S3, or S4 Abdomen: Soft , diffusely tender to palpation, distended, bowel sounds are present. Extremities: Normal to inspection, no edema no cyanosis, skin yellow Results Result Diagram: 10/29/18 0614 10/29/18 0614 Results 24hrs Laboratory Tests Test 10/29/18 06:14 White Blood Count 7.1 Red Blood Count 2.39 L Hemoglobin 8.1 L Hematocrit 23.0 L Mean Corpuscular Volume 96.2 Mean Corpuscular Hemoglobin 33.9 H Mean Corpuscular Hemoglobin Concent 35.2 Red Cell Distribution Width 18.3 H Platelet Count 117 L Mean Platelet Volume 9.8 Immature Granulocytes % 1.500 H Neutrophils % 52.0 Lymphocytes % 23.5 Monocytes % 19.0 H Eosinophils % 2.5 Basophils % 1.5 Nucleated Red Blood Cells % 0.3 H Immature Granulocytes # 0.110 H Neutrophils # 3.7 Lymphocytes # 1.7 Monocytes # 1.4 H Eosinophils # 0.2 Basophils # 0.1 Nucleated Red Blood Cells # 0.0 Sodium Level 127 L Potassium Level 4.3 Chloride Level 95 L Carbon Dioxide Level 22 Anion Gap 10 Blood Urea Nitrogen 13 Creatinine 0.58 L Est Glomerular Filtrat Rate mL/min > 60 Glucose Level 91 Calcium Level 8.7 Total Bilirubin 17.1 H Direct Bilirubin 12.50 H Indirect Bilirubin 4.6 H Aspartate Amino Transf (AST/SGOT) 234 H Alanine Aminotransferase (ALT/SGPT) 102 H Alkaline Phosphatase 251 H Total Protein 7.0 Albumin 2.8 L Globulin 4.20 H Albumin/Globulin Ratio 0.66 Medications Medication Current Medications Paroxetine HCl (Paxil) 30 mg HS PO Last administered on 10/28/18 22:41; Admin Dose 30 MG; Start 10/26/18 at 21:00 Spironolactone (Aldactone) 50 mg DAILY PO Last administered on 10/29/18 08:51; Admin Dose 50 MG; Start 10/27/18 at 09:00 Folic Acid (Folic Acid) 1 mg DAILY PO Last administered on 10/29/18 08:51; Admin Dose 1 MG; Start 10/27/18 at 09:00 Thiamine HCl (Vitamin B1) 100 mg DAILY PO Last administered on 10/29/18 08:51; Admin Dose 100 MG; Start 10/27/18 at 09:00 Multivitamins Therapeutic (Theragran) 1 tab DAILY PO Last administered on 10/29/18 08:51; Admin Dose 1 TAB; Start 10/27/18 at 09:00 Lorazepam (Ativan) 1 mg Q4H PRN IV withdrawal, seizures Last administered on 10/29/18 08:50; Admin Dose 1 MG; Start 10/26/18 at 19:30 Lorazepam (Ativan) 1 mg Q8H IV Last administered on 10/28/18 12:22; Admin Dose 1 MG; Start 10/26/18 at 19:30 IV Flush (NS 3 ml) 3 ml PER PROTOCOL IV ; Start 10/26/18 at 19:30 Ondansetron HCl (Zofran Inj) 4 mg Q6H PRN IV NAUSEA/VOMITING; Start 10/26/18 at 19:30 Morphine Sulfate (morphine) 2 mg Q4H PRN IV .PAIN 7-10; Start 10/26/18 at 19:30 Docusate Sodium (Colace) 100 mg Q12H PRN PO .CONSTIPATION; Start 10/26/18 at 19:30 Magnesium Hydroxide (Milk Of Mag) 30 ml DAILY PRN PO .CONSTIPATION; Start 10/26/18 at 19:30 Lisinopril (Zestril) 10 mg BID PO Last administered on 10/29/18 08:51; Admin Dose 10 MG; Start 10/27/18 at 09:00 Sodium Chloride (Nacl) 1 gm TID PO Last administered on 10/29/18 08:51; Admin Dose 1 GM; Start 10/27/18 at 13:00 Sodium Chloride 1,000 ml @ 60 mls/hr [id number] IV Last administered on 10/28/18 02:34; Admin Dose 60 MLS/HR; Start 10/27/18 at 10:00 Methylprednisolone Sodium Succinate (Solu-Medrol) 40 mg DAILY IV Last admi nistered on 10/29/18 08:50; Admin Dose 40 MG; Start 10/27/18 at 14:30 Lactulose (Enulose) 20 gm Q6 PO Last administered on 10/29/18 07:07; Admin Dose 20 GM; Start 10/28/18 at 18:00 Rifaximin (Xifaxan) 550 mg BID PO Last administered on 10/29/18 08:51; Admin Dose 550 MG; Start 10/28/18 at 21:00 BUCK CARO MD Oct 29, 2018 09:53
[2018-10-29] MEDS: SOD CHLORIDE 0.9% 1,000 ML IV SCH ×2 (12:00→19:28)
--- NOTE | 2018-10-29 13:52 | PN ---
Date/Time of Note Date/Time of Note DATE: 10/29/18 TIME: 13:49 Assessment/Plan Lines/Catheters IV Catheter Type (from [facility]): Saline Lock Vazquez in Place (from [facility]): No Assessment/Plan Chief Complaint/Hosp Course 1. Thickened gallbladder wall with sludge and small stones. doubt this is secondary to acute cholecystitis. Patient has acute liver failure with cirrhosis and most probably edema of the gallbladder. However if still concerned will benefit from HIDA scan; tolerating diet -Medical/GI optimization -Alcohol cessation highly encouraged -Antibiotics -No emergent surgical intervention necessary at this time. 2. Acute liver failure/Hepatitis with transaminitis, hyperbilirubinemia; currently on steroids -Trend labs -Medical/GI optimization -Alcohol cessation highly encouraged 3. Alcohol abuse -As above 4. Acute hyponatremia secondary to volume status: Mildly improved -Judicious fluid management 5. Anemia most likely chronic disease and iron deficiency, doubt acute blood loss -Monitor and treat per medical team 6. Elevated lipase questionable pancreatitis -Trend levels 7. BMI 39 -Encourage nutrition optimization -Encourage exercise 8. Hypoalbuminemia, multifactorial -Medical optimization (cirrhosis, nutrition, cessation of alcohol abuse) Thank you. Patient seen and examined in collaboration with Dr. Yuan Fleming. Subjective 24 Hr Interval Summary Feels well. Lucid today. No acute abdominal pain. Tolerating diet. No fevers, chills, sob, congested cough, cp, palpitations, chiu, dizziness, nausea, vomiting, diarrhea, dysuria. Exam/Review of Systems Vital Signs Vitals Vital Signs Date Temp Pulse Resp B/P (MAP) Pulse Ox O2 O2 Flow FiO2 Time Delivery Rate 10/29/18 99 12:18 10/29/18 98.0 18 127/67 97 Room Air 11:55 (87) Intake and Output 10/28/18 10/28/18 10/29/18 1515:00 23:00 07:00 IntakeIntake Total 1460 ml 250 ml OutputOutput Total 1300 ml 1000 ml BalanceBalance 160 ml -750 ml Exam Free Text/Dictation Constitutional: alert, oriented, obese; No distress Psych: anxiety; No confusion Head: normocephalic Eyes: EOMI, PERRL, icteric; No nl conjunctiva ENMT: nl external ears & nose, nl lips & teeth, nl nasal mucosa & septum Neck: supple, non-tender Respiratory: normal air movement; No congested cough, No labored breathing, No wheezing Cardiovascular: regular rate and rhythm, edema Gastrointestinal: soft, non-tender, distended; negative Richards's by palpation No rebound or guarding Genitourinary - Male: nl penis, nl scrotum Musculoskeletal: nl extremities to inspection; No joint tenderness Extremities: edema; No calf tenderness 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: nl mental status, nl speech, nl strength Skin: nl turgor, ecchymosis; No diaphoresis Lymph: nl lymph nodes Results Result Diagram: 10/29/18 0614 10/29/18 0614 ANALI BERUMEN NP Oct 29, 2018 13:51
--- NOTE | 2018-10-29 14:38 | PN ---
Date/Time of Note Date/Time of Note DATE: 10/29/18 TIME: 14:35 Assessment/Plan VTE Prophylaxis [place] [facility] [place] risk: 2 SCD applied [place] [facility] [place] Yes Pharmacological prophylaxis: other Pharm contraindication: bleeding Lines/Catheters IV C[facility] Type (from [facility] Saline Lock Urinary Cath still in place: No Assessment/Plan Assessment/Plan 1. Alcohol withdrawal, on thiamine, folic acid, ativan prn 2. Alcoholic liver disease, on steroid and lactulose/rifaximin, follow up with GI 3. Normocytic anemia, follow up with H/H 4. Thrombocytopenia, alcohol related, follow up with PLT 5. Coagulopathy, due to alcoholic liver disease 6. Obesity 7. Hyponatremia, IVF with NS, free water restriction Result Diagram: 10/29/1814 10/29/18 0614 Results 24hrs Laboratory Tests Test 10/29/18 06:14 White Blood Count 7.1 Red Blood Count 2.39 L Hemoglobin 8.1 L Hematocrit 23.0 L Mean Corpuscular Volume 96.2 Mean Corpuscular Hemoglobin 33.9 H Mean Corpuscular Hemoglobin Concent 35.2 Red Cell Distribution Width 18.3 H Platelet Count 117 L Mean Platelet Volume 9.8 Immature Granulocytes % 1.500 H Neutrophils % 52.0 Lymphocytes % 23.5 Monocytes % 19.0 H Eosinophils % 2.5 Basophils % 1.5 Nucleated Red Blood Cells % 0.3 H Immature Granulocytes # 0.110 H Neutrophils # 3.7 Lymphocytes # 1.7 Monocytes # 1.4 H Eosinophils # 0.2 Basophils # 0.1 Nucleated Red Blood Cells # 0.0 Sodium Level 127 L Potassium Level 4.3 Chloride Level 95 L Carbon Dioxide Level 22 Anion Gap 10 Blood Urea Nitrogen 13 Creatinine 0.58 L Est Glomerular Filtrat Rate mL/min > 60 Glucose Level 91 Calcium Level 8.7 Total Bilirubin 17.1 H Direct Bilirubin 12.50 H Indirect Bilirubin 4.6 H Aspartate Amino Transf (AST/SGOT) 234 H Alanine Aminotransferase (ALT/SGPT) 102 H Alkaline Phosphatase 251 H Total Protein 7.0 Albumin 2.8 L Globulin 4.20 H Albumin/Globulin Ratio 0.66 Subjective 24 Hr Interval Summary Free Text/Dictation more alert and oriented today. weak Exam/Review of Systems Exam Vitals Vital Signs Date Temp Pulse Resp B/P (MAP) Pulse Ox O2 O2 Flow FiO2 Time Delivery Rate 10/29/18 99 12:18 10/29/18 98.0 18 127/67 97 Room Air 11:55 (87) Intake and Output 10/28/18 10/28/18 10/29/18 1515:00 23:00 07:00 IntakeIntake Total 1460 ml 250 ml OutputOutput Total 1300 ml 1000 ml BalanceBalance 160 ml -750 ml Constitutional: alert, oriented, well developed Head: normocephalic, atraumatic Eyes: nl conjunctiva, EOMI, nl lids, PERRL ENMT: nl external ears & nose, nl lips & teeth, nl nasal mucosa & septum, mucosa pink and moist Neck: supple, non-tender Respiratory: clear to auscultation, normal air movement; No congested cough, No crackles/rales, No diminished breath sounds, No intercostal retraction, No labored breathing, No respirations, No tactile fremitus, No wheezing, No other Cardiovascular: regular rate and rhythm, nl pulses; No bruits, No diastolic murmur, No edema, No gallop, No irregular rhythm, No jugular venous distention (JVD), No murmurs/extra sounds, No rub, No systolic murmur, No S3, No S4, No other Gastrointestinal: soft, nl liver, spleen, non-tender Musculoskeletal: nl extremities to inspection Extremities: normal pulses; No calf tenderness, No cyanosis, No clubbing, No edema, No pitting pedal edema, No palpable cord, No tenderness, No other 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: [employer] TENDER II-XII intact, nl mental status, nl speech Results Results 24hrs Laboratory Tests Test 10/29/18 06:14 White Blood Count 7.1 Red Blood Count 2.39 L Hemoglobin 8.1 L Hematocrit 23.0 L Mean Corpuscular Volume 96.2 Mean Corpuscular Hemoglobin 33.9 H Mean Corpuscular Hemoglobin Concent 35.2 Red Cell Distribution Width 18.3 H Platelet Count 117 L Mean Platelet Volume 9.8 Immature Granulocytes % 1.500 H Neutrophils % 52.0 Lymphocytes % 23.5 Monocytes % 19.0 H Eosinophils % 2.5 Basophils % 1.5 Nucleated Red Blood Cells % 0.3 H Immature Granulocytes # 0.110 H Neutrophils # 3.7 Lymphocytes # 1.7 Monocytes # 1.4 H Eosinophils # 0.2 Basophils # 0.1 Nucleated Red Blood Cells # 0.0 Sodium Level 127 L Potassium Level 4.3 Chloride Level 95 L Carbon Dioxide Level 22 Anion Gap 10 Blood Urea Nitrogen 13 Creatinine 0.58 L Est Glomerular Filtrat Rate mL/min > 60 Glucose Level 91 Calcium Level 8.7 Total Bilirubin 17.1 H Direct Bilirubin 12.50 H Indirect Bilirubin 4.6 H Aspartate Amino Transf (AST/SGOT) 234 H Alanine Aminotransferase (ALT/SGPT) 102 H Alkaline Phosphatase 251 H Total Protein 7.0 Albumin 2.8 L Globulin 4.20 H Albumin/Globulin Ratio 0.66 Medications Medication Current Medications Paroxetine HCl (Paxil) 30 mg HS PO Last administered on 10/28/18 22:41; Admin Dose 30 MG; Start 10/26/18 at 21:00 Spironolactone (Aldactone) 50 mg DAILY PO Last administered on 10/29/18 08:51; Admin Dose 50 MG; Start 10/27/18 at 09:00 Folic Acid (Folic Acid) 1 mg DAILY PO Last administered on 10/29/18 08:51; Admin Dose 1 MG; Start 10/27/18 at 09:00 Thiamine HCl (Vitamin B1) 100 mg DAILY PO Last administered on 10/29/18 08:51; Admin Dose 100 MG; Start 10/27/18 at 09:00 Multivitamins Therapeutic (Theragran) 1 tab DAILY PO Last administered on 10/29/18 08:51; Admin Dose 1 TAB; Start 10/27/18 at 09:00 Lorazepam (Ativan) 1 mg Q4H PRN IV withdrawal, seizures Last administered on 10/29/18 08:50; Admin Dose 1 MG; Start 10/26/18 at 19:30 Lorazepam (Ativan) 1 mg Q8H IV Last administered on 10/29/18 13:23; Admin Dose 1 MG; Start 10/26/18 at 19:30 IV Flush (NS 3 ml) 3 ml PER PROTOCOL IV ; Start 10/26/18 at 19:30 Ondansetron HCl (Zofran Inj) 4 mg Q6H PRN IV NAUSEA/VOMITING; Start 10/26/18 at 19:30 Morphine Sulfate (morphine) 2 mg Q4H PRN IV .PAIN 7-10; Start 10/26/18 at 19:30 Docusate Sodium (Colace) 100 mg Q12H PRN PO .CONSTIPATION; Start 10/26/18 at 19:30 Magnesium Hydroxide (Milk Of Mag) 30 ml DAILY PRN PO .CONSTIPATION; Start 10/26/18 at 19:30 Lisinopril (Zestril) 10 mg BID PO Last administered on 10/29/18 08:51; Admin Dose 10 MG; Start 10/27/18 at 09:00 Sodium Chloride (Nacl) 1 gm TID PO Last administered on 10/29/18 13:23; Admin Dose 1 GM; Start 10/27/18 at 13:00 Sodium Chloride 1,000 ml @ 60 mls/hr [id number] IV Last administered on 10/28/18 02:34; Admin Dose 60 MLS/HR; Start 10/27/18 at 10:00 Methylprednisolone Sodium Succinate (Solu-Medrol) 40 mg DAILY IV Last administered on 10/29/18 08:50; Admin Dose 40 MG; Start 10/27/18 at 14:30 Lactulose (Enulose) 20 gm Q6 PO Last administered on 10/29/18 13:23; Admin Dose 20 GM; Start 10/28/18 at 18:00 Rifaximin (Xifaxan) 550 mg BID PO Last administered on 10/29/18 08:51; Admin Dose 550 MG; Start 10/28/18 at 21:00 MACARENA MOONEY MD Oct 29, 2018 14:38
--- NOTE | 2018-10-29 14:59 | PN ---
Date/Time of Note Date/Time of Note DATE: 10/29/18 TIME: 14:53 Assessment/Plan VTE [place] [facility] [place]: 2 [place] [facility] [place] Yes Pharmacological prophylaxis: NA/contraindicated Pharm contraindication: liver dx Lines/Catheters [facility] Saline Lock Urinary Cath still in place: No Assessment/Plan Assessment/Plan Assessment: Alcoholic hepatitis function of 58.4 Hepatomegaly and fatty liver 2/2 to ETOH abuse Elevated LFTs - trending down Direct hyperbilirubinemia- stable -Rule out obstruction versus hepatocellular disease. Hepatitis C AB- reactive- RNA pending Normocytic anemia Thrombus cytopenia Coagulopathy EtOH abuse Obesity Hyponatremia Plan: MRCP - pending Solu-Medrol 40 mg daily for a total of 28 days Vitamin K 10 mg SQ x 3 days Lactulose 20 mg po bid (titrate to 3 BMs per day) Continue to monitor labs Patient seen in collaboration with Dr. Nuñez/Enedina Subjective: Course reviewed with nursing staff Patient interviewed and examined All labs, imaging and other results reviewed Patient is off the floor for MRCP. Bilirubin is trending up, LFT elevated but stable.Will continue on Rifaximin/Lactulose and Steroid treatment for alcoholic hepatitis. PHYSICAL EXAMINATION: Patient is off the floor for the MRCP. Will re assess tomorrow Result Diagram: 10/29/18 0614 10/29/18 0614 Results 24hrs Laboratory Tests Test 10/29/18 06:14 White Blood Count 7.1 Red Blood Count 2.39 L Hemoglobin 8.1 L Hematocrit 23.0 L Mean Corpuscular Volume 96.2 Mean Corpuscular Hemoglobin 33.9 H Mean Corpuscular Hemoglobin Concent 35.2 Red Cell Distribution Width 18.3 H Platelet Count 117 L Mean Platelet Volume 9.8 Immature Granulocytes % 1.500 H Neutrophils % 52.0 Lymphocytes % 23.5 Monocytes % 19.0 H Eosinophils % 2.5 Basophils % 1.5 Nucleated Red Blood Cells % 0.3 H Immature Granulocytes # 0.110 H Neutrophils # 3.7 Lymphocytes # 1.7 Monocytes # 1.4 H Eosinophils # 0.2 Basophils # 0.1 Nucleated Red Blood Cells # 0.0 Sodium Level 127 L Potassium Level 4.3 Chloride Level 95 L Carbon Dioxide Level 22 Anion Gap 10 Blood Urea Nitrogen 13 Creatinine 0.58 L Est Glomerular Filtrat Rate mL/min > 60 Glucose Level 91 Calcium Level 8.7 Total Bilirubin 17.1 H Direct Bilirubin 12.50 H Indirect Bilirubin 4.6 H Aspartate Amino Transf (AST/SGOT) 234 H Alanine Aminotransferase (ALT/SGPT) 102 H Alkaline Phosphatase 251 H Total Protein 7.0 Albumin 2.8 L Globulin 4.20 H Albumin/Globulin Ratio 0.66 CC: FRANKLYN HOLLAND Tristan ; Exam/Review of Systems Exam Vitals Vital Signs Date Temp Pulse Resp B/P (MAP) Pulse Ox O2 O2 Flow FiO2 Time Delivery Rate 10/29/18 99 12:18 10/29/18 98.0 18 127/67 97 Room Air 11:55 (87) Intake and Output 10/28/18 10/28/18 10/29/18 1515:00 23:00 07:00 IntakeIntake Total 1460 ml 250 ml OutputOutput Total 1300 ml 1000 ml BalanceBalance 160 ml -750 ml Results Results 24hrs Laboratory Tests Test 10/29/18 06:14 White Blood Count 7.1 Red Blood Count 2.39 L Hemoglobin 8.1 L Hematocrit 23.0 L Mean Corpuscular Volume 96.2 Mean Corpuscular Hemoglobin 33.9 H Mean Corpuscular Hemoglobin Concent 35.2 Red Cell Distribution Width 18.3 H Platelet Count 117 L Mean Platelet Volume 9.8 Immature Granulocytes % 1.500 H Neutrophils % 52.0 Lymphocytes % 23.5 Monocytes % 19.0 H Eosinophils % 2.5 Basophils % 1.5 Nucleated Red Blood Cells % 0.3 H Immature Granulocytes # 0.110 H Neutrophils # 3.7 Lymphocytes # 1.7 Monocytes # 1.4 H Eosinophils # 0.2 Basophils # 0.1 Nucleated Red Blood Cells # 0.0 Sodium Level 127 L Potassium Level 4.3 Chloride Level 95 L Carbon Dioxide Level 22 Anion Gap 10 Blood Urea Nitrogen 13 Creatinine 0.58 L Est Glomerular Filtrat Rate mL/min > 60 Glucose Level 91 Calcium Level 8.7 Total Bilirubin 17.1 H Direct Bilirubin 12.50 H Indirect Bilirubin 4.6 H Aspartate Amino Transf (AST/SGOT) 234 H Alanine Aminotransferase (ALT/SGPT) 102 H Alkaline Phosphatase 251 H Total Protein 7.0 Albumin 2.8 L Globulin 4.20 H Albumin/Globulin Ratio 0.66 Medications Medication Current Medications Paroxetine HCl (Paxil) 30 mg HS PO Last administered on 10/28/18 22:41; Admin Dose 30 MG; Start 10/26/18 at 21:00 Spironolactone (Aldactone) 50 mg DAILY PO Last administered on 10/29/18 08:51; Admin Dose 50 MG; Start 10/27/18 at 09:00 Folic Acid (Folic Acid) 1 mg DAILY PO Last administered on 10/29/18 08:51; Admin Dose 1 MG; Start 10/27/18 at 09:00 Thiamine HCl (Vitamin B1) 100 mg DAILY PO Last administered on 10/29/18 08:51; Admin Dose 100 MG; Start 10/27/18 at 09:00 Multivitamins Therapeutic (Theragran) 1 tab DAILY PO Last administered on 10/29/18 08:51; Admin Dose 1 TAB; Start 10/27/18 at 09:00 Lorazepam (Ativan) 1 mg Q4H PRN IV withdrawal, seizures Last administered on 10/29/18 08:50; Admin Dose 1 MG; Start 10/26/18 at 19:30 Lorazepam (Ativan) 1 mg Q8H IV Last administered on 10/29/18 13:23; Admin Dose 1 MG; Start 10/26/18 at 19:30 IV Flush (NS 3 ml) 3 ml PER PROTOCOL IV ; Start 10/26/18 at 19:30 Ondansetron HCl (Zofran Inj) 4 mg Q6H PRN IV NAUSEA/VOMITING; Start 10/26/18 at 19:30 Morphine Sulfate (morphine) 2 mg Q4H PRN IV .PAIN 7-10; Start 10/26/18 at 19:30 Docusate Sodium (Colace) 100 mg Q12H PRN PO .CONSTIPATION; Start 10/26/18 at 19:30 Magnesium Hydroxide (Milk Of Mag) 30 ml DAILY PRN PO .CONSTIPATION; Start 10/26/18 at 19:30 Lisinopril (Zestril) 10 mg BID PO Last administered on 10/29/18 08:51; Admin Dose 10 MG; Start 10/27/18 at 09:00 Sodium Chloride (Nacl) 1 gm TID PO Last administered on 10/29/18 13:23; Admin Dose 1 GM; Start 10/27/18 at 13:00 Sodium Chloride 1,000 ml @ 60 mls/hr [id number] IV Last administered on 10/28/18at 02:34; Admin Dose 60 MLS/HR; Start 10/27/18 at 10:00 Methylprednisolone Sodium Succinate (Solu-Medrol) 40 mg DAILY IV Last administered on 10/29/18at 08:50; Admin Dose 40 MG; Start 10/27/18 at 14:30 Lactulose (Enulose) 20 gm Q6 PO Last administered on 10/29/18at 13:23; Admin Dose 20 GM; Start 10/28/18 at 18:00 Rifaximin (Xifaxan) 550 mg BID PO Last administered on 10/29/18at 08:51; Admin Dose 550 MG; Start 10/28/18 at 21:00 SOPHIA DEJESUS NP Oct 29, 2018 14:59
[2018-10-29] MEDS ORDERED: morphine LIQ (10 MG/5 ML) CUP PO PRN (17:30)
[2018-10-29] MEDS: PAROXETINE 10 MG TAB PO SCH (19:57)
[2018-10-30] VITALS (11 sets, daily range): BP systolic 114–135; BP diastolic 58–68; PULSE 80–106; RESP 17–20
[2018-10-30] MEDS: LORAZEPAM 2 MG INJ IV SCH ×3 (03:30→20:58)
[2018-10-30] MEDS: LACTULOSE 30ML CUP PO SCH ×5 (05:43→23:31)
[2018-10-30] MEDS: METHYLPREDNISOLONE 40 MG INJ IV SCH (08:32)
[2018-10-30] MEDS: MULTIVITAMINS THERAPEUTIC TAB PO SCH (08:32)
[2018-10-30] MEDS: FOLIC ACID 1 MG TAB PO SCH (08:33)
[2018-10-30] MEDS: THIAMINE 100 MG TAB PO SCH (08:33)
[2018-10-30] MEDS: RIFAXIMIN 550 MG TAB PO SCH ×2 (08:33→20:58)
[2018-10-30] MEDS: LISINOPRIL 10 MG TAB PO SCH ×2 (08:33→20:59)
[2018-10-30] MEDS: SPIRONOLACTONE 25 MG TAB PO SCH (08:33)
[2018-10-30] MEDS: SODIUM CHLORIDE 1 GM TAB PO SCH ×3 (08:33→20:58)
--- NOTE | 2018-10-30 12:40 | PN ---
Date/Time of Note Date/Time of Note DATE: 10/30/18 TIME: 12:37 Assessment/Plan VTE Prophylaxis Risk score (from [facility])>0 risk: 2 SCD applied (from [facility]): Yes Pharmacological prophylaxis: NA/contraindicated Pharm contraindication: liver dx Lines/Catheters IV C[facility]ter Type (from [facility]): Saline Lock Assessment/Plan Assessment/Plan Assessment: Alcoholic hepatitis function of 58.4 Hepatomegaly and fatty liver 2/2 to ETOH abuse Elevated LFTs - trending down Direct hyperbilirubinemia- stable -Rule out obstruction versus hepatocellular disease. Hepatitis C AB- reactive- RNA pending Normocytic anemia Thrombus cytopenia Coagulopathy EtOH abuse Obesity Hyponatremia Plan: Increase lactulose MRCP -negative Solu-Medrol 40 mg daily for a total of 28 days Vitamin K 10 mg x 1 Continue rifaximin Monitor LFTs Patient seen in collaboration with Dr. Nuñez/Enedina Subjective: Course reviewed with nursing staff Patient interviewed and examined All labs, imaging and other results reviewed The patient is more awake today. Patient is tolerating the diet well. He reports one bowel movement today on lactulose. Patient is confused. Will increase lactulose. Results of MRCP reviewed with the patient and the at the bedside. Bilirubin, INR and LFTs are trending up. We will continue monito ring. PHYSICAL EXAMINATION: GENERAL: Awake, alert, Confused, obese, jaundice SKIN: Abrasion to right eyebrow, multiple bruises on body EYES: Pupils equal reactive to light, icteric sclera, no discharge. EARS/NOSE AND THROAT: Ears normal, nose normal, oropharynx normal NECK: Supple, no masses CHEST: Inspection within normal limits. CARDIOVASCULAR: Heart: Regular rate and rhythm RESPIRATORY: Lungs clear to auscultation GASTROINTESTINAL AND LIVER: Abdomen: Soft, non tenderness, distended, no her nias, no guarding, no rebound tenderness, normoactive bowel sounds. Rectal: Deferred. EXTREMITIES: No edema Result Diagram: 10/30/18 0741 10/30/18 0740 Results 24hrs Laboratory Tests Test 10/30/18 07:40 10/30/18 07:41 10/30/18 10:18 Prothrombin Time 24.8 H Prothrombin Time Ratio 1.9 INR International Normalized Ratio 2.23 Sodium Level 131 L Potassium Level 4.5 Chloride Level 99 Carbon Dioxide Level 24 Anion Gap 8 Blood Urea Nitrogen 12 Creatinine 0.58 L Est Glomerular Filtrat Rate mL/min > 60 Glucose Level 112 Calcium Level 9.2 Total Bilirubin 19.0 H Direct Bilirubin 14.10 H Indirect Bilirubin 4.9 H Aspartate Amino Transf (AST/SGOT) 240 H Alanine Aminotransferase (ALT/SGPT) 116 H Alkaline Phosphatase 343 H Total Protein 7.9 Albumin 3.2 L Globulin 4.70 H Albumin/Globulin Ratio 0.68 White Blood Count 10.9 #H Red Blood Count 2.65 L Hemoglobin 9.1 L Hematocrit 26.2 L Mean Corpuscular Volume 98.9 Mean Corpuscular Hemoglobin 34.3 H Mean Corpuscular Hemoglobin Concent 34.7 Red Cell Distribution Width 18.6 H Platelet Count 154 # Mean Platelet Volume 10.0 Immature Granulocytes % 2.700 H Neutrophils % 66.1 Lymphocytes % 15.7 Monocytes % 14.9 H Eosinophils % 0.2 Basophils % 0.4 Nucleated Red Blood Cells % 0.3 H Immature Granulocytes # 0.290 H Neutrophils # 7.2 Lymphocytes # 1.7 Monocytes # 1.6 H Eosinophils # 0.0 Basophils # 0.0 Nucleated Red Blood Cells # 0.0 Lab Scanned Report REFERENCE LAB CC: LASHON NUÑEZ MD ; Exam/Review of Systems Exam Vitals Vital Signs Date Temp Pulse Resp B/P (MAP) Pulse Ox O2 O2 Flow FiO2 Time Delivery Rate 10/30/18 102 12:12 10/30/18 98.0 18 130/67 93 11:32 (88) 10/30/18 Room Air 04:00 Intake and Output 10/29/18 10/29/18 10/30/18 1515:00 23:00 07:00 IntakeIntake Total 900 ml 820 ml BalanceBalance 900 ml 820 ml Results Results 24hrs Laboratory Tests Test 10/30/18 07:40 10/30/18 07:41 10/30/18 10:18 Prothrombin Time 24.8 H Prothrombin Time Ratio 1.9 INR International Normalized Ratio 2.23 Sodium Level 131 L Potassium Level 4.5 Chloride Level 99 Carbon Dioxide Level 24 Anion Gap 8 Blood Urea Nitrogen 12 Creatinine 0.58 L Est Glomerular Filtrat Rate mL/min > 60 Glucose Level 112 Calcium Level 9.2 Total Bilirubin 19.0 H Direct Bilirubin 14.10 H Indirect Bilirubin 4.9 H Aspartate Amino Transf (AST/SGOT) 240 H Alanine Aminotransferase (ALT/SGPT) 116 H Alkaline Phosphatase 343 H Total Protein 7.9 Albumin 3.2 L Globulin 4.70 H Albumin/Globulin Ratio 0.68 White Blood Count 10.9 #H Red Blood Count 2.65 L Hemoglobin 9.1 L Hematocrit 26.2 L Mean Corpuscular Volume 98.9 Mean Corpuscular Hemoglobin 34.3 H Mean Corpuscular Hemoglobin Concent 34.7 Red Cell Distribution Width 18.6 H Platelet Count 154 # Mean Platelet Volume 10.0 Immature Granulocytes % 2.700 H Neutrophils % 66.1 Lymphocytes % 15.7 Monocytes % 14.9 H Eosinophils % 0.2 Basophils % 0.4 Nucleated Red Blood Cells % 0.3 H Immature Granulocytes # 0.290 H Neutrophils # 7.2 Lymphocytes # 1.7 Monocytes # 1.6 H Eosinophils # 0.0 Basophils # 0.0 Nucleated Red Blood Cells # 0.0 Lab Scanned Report REFERENCE LAB Medications Medication Current Medications Paroxetine HCl (Paxil) 30 mg HS PO Last administered on 10/29/18 19:57; Admin Dose 30 MG; Start 10/26/18 at 21:00 Spironolactone (Aldactone) 50 mg DAILY PO Last administered on 10/30/18 08:33; Admin Dose 50 MG; Start 10/27/18 at 09:00 Folic Acid (Folic Acid) 1 mg DAILY PO Last administered on 10/30/18 08:33; Admin Dose 1 MG; Start 10/27/18 at 09:00 Thiamine HCl (Vitamin B1) 100 mg DAILY PO Last administered on 10/30/18 08:33; Admin Dose 100 MG; Start 10/27/18 at 09:00 Multivitamins Therapeutic (Theragran) 1 tab DAILY PO Last administered on 10/30/18 08:32; Admin Dose 1 TAB; Start 10/27/18 at 09:00 Lorazepam (Ativan) 1 mg Q4H PRN IV withdrawal, seizures Last administered on 10/29/18 08:50; Admin Dose 1 MG; Start 10/26/18 at 19:30 Lorazepam (Ativan) 1 mg Q8H IV Last administered on 10/30/18 12:12; Admin Dose 1 MG; Start 10/26/18 at 19:30 IV Flush (NS 3 ml) 3 ml PER PROTOCOL IV ; Start 10/26/18 at 19:30 Ondansetron HCl (Zofran Inj) 4 mg Q6H PRN IV NAUSEA/VOMITING; Start 10/26/18 at 19:30 Docusate Sodium (Colace) 100 mg Q12H PRN PO .CONSTIPATION; Start 10/26/18 at 19:30 Magnesium Hydroxide (Milk Of Mag) 30 ml DAILY PRN PO .CONSTIPATION; Start 10/26/18 at 19:30 Lisinopril (Zestril) 10 mg BID PO Last administered on 10/30/18 08:33; Admin Dose 10 MG; Start 10/27/18 at 09:00 Sodium Chloride (Nacl) 1 gm TID PO Last administered on 10/30/18 12:11; Admin Dose 1 GM; Start 10/27/18 at 13:00 Sodium Chloride 1,000 ml @ 60 mls/hr [id number] IV Last administered on 10/28/18 02:34; Admin Dose 60 MLS/HR; Start 10/27/18 at 10:00 Methylprednisolone Sodium Succinate (Solu-Medrol) 40 mg DAILY IV Last administered on 10/30/18 08:32; Admin Dose 40 MG; Start 10/27/18 at 14:30 Lactulose (Enulose) 20 gm Q6 PO Last administered on 10/30/18 12:11; Admin Dose 20 GM; Start 10/28/18 at 18:00 Rifaximin (Xifaxan) 550 mg BID PO Last administered on 10/30/18 08:33; Admin Dose 550 MG; Start 10/28/18 at 21:00 Morphine Sulfate (morphine) 6 mg Q4H PRN PO .PAIN 7-10; Start 10/29/18 at 17:30 SOPHIA DEJESUS NP Oct 30, 2018 12:40
[2018-10-30] MEDS ORDERED: PHYTONADIONE 10 MG in DEXTROSE 5% 50 ML IVPB ONE (13:00)
[2018-10-30] MEDS ORDERED: PHYTONADIONE 10 MG/ML INJ SC ONE (13:30)
--- NOTE | 2018-10-30 13:35 | PN ---
Date/Time of Note Date/Time of Note DATE: 10/30/18 TIME: 13:33 Assessment/Plan VTE Prophylaxis Risk score (from [facility])>0 risk: 2 SCD applied (from [facility] [place] [facility]): Yes Pharmacological prophylaxis: NA/contraindicated Pharm contraindication: bleeding Lines/Catheters IV C[facility]ter Type (from [facility]): Saline Lock Assessment/Plan Problems: (1) Alcohol abuse Status: Acute Comment: Currently he is not receiving alcohol. I was seriously concerned about the impending DTs possibility (2) Alcohol withdrawal Status: Acute Comment: Is clearly in withdrawal but not frankly DTs. Careful observation and management. Qualifiers: Complication of substance-induced condition: uncomplicated Qualified Codes: F10.230 - Alcohol dependence with withdrawal, uncomplicated (3) Decompensated hepatic cirrhosis Status: Acute Comment: Is on steroids, spironolactone. Consideration as per GI for low-dose beta-john such as nadolol. (4) Hypertension Status: Acute Comment: On treatment Qualifiers: Hypertension type: essential hypertension Qualified Codes: I10 - Essential (primary) hypertension (5) Anxiety Status: Acute Comment: Noted. Result Diagram: 10/30/18 0741 10/30/18 0740 Results 24hrs Laboratory Tests Test 10/30/18 07:40 10/30/18 07:41 10/30/18 10:18 Prothrombin Time 24.8 H Prothrombin Time Ratio 1.9 INR International Normalized Ratio 2.23 Sodium Level 131 L Potassium Level 4.5 Chloride Level 99 Carbon Dioxide Level 24 Anion Gap 8 Blood Urea Nitrogen 12 Creatinine 0.58 L Est Glomerular Filtrat Rate mL/min > 60 Glucose Level 112 Calcium Level 9.2 Total Bilirubin 19.0 H Direct Bilirubin 14.10 H Indirect Bilirubin 4.9 H Aspartate Amino Transf (AST/SGOT) 240 H Alanine Aminotransferase (ALT/SGPT) 116 H Alkaline Phosphatase 343 H Total Protein 7.9 Albumin 3.2 L Globulin 4.70 H Albumin/Globulin Ratio 0.68 White Blood Count 10.9 #H Red Blood Count 2.65 L Hemoglobin 9.1 L Hematocrit 26.2 L Mean Corpuscular Volume 98.9 Mean Corpuscular Hemoglobin 34.3 H Mean Corpuscular Hemoglobin Concent 34.7 Red Cell Distribution Width 18.6 H Platelet Count 154 # Mean Platelet Volume 10.0 Immature Granulocytes % 2.700 H Neutrophils % 66.1 Lymphocytes % 15.7 Monocytes % 14.9 H Eosinophils % 0.2 Basophils % 0.4 Nucleated Red Blood Cells % 0.3 H Immature Granulocytes # 0.290 H Neutrophils # 7.2 Lymphocytes # 1.7 Monocytes # 1.6 H Eosinophils # 0.0 Basophils # 0.0 Nucleated Red Blood Cells # 0.0 Lab Scanned Report REFERENCE LAB Subjective 24 Hr Interval Summary Free Text/Dictation Patient reports he is feeling okay. Please note is quite tremulous Constitutional: no complaints Respiratory: no complaints Cardiovascular: no complaints Gastrointestinal: no complaints Exam/Review of Systems Exam Vitals Vital Signs Date Temp Pulse Resp B/P (MAP) Pulse Ox O2 O2 Flow FiO2 Time Delivery Rate 10/30/18 102 12:12 10/30/18 98.0 18 130/67 93 11:32 (88) 10/30/18 Room Air 04:00 Intake and Output 10/29/18 10/29/18 10/30/18 1515:00 23:00 07:00 IntakeIntake Total 900 ml 820 ml BalanceBalance 900 ml 820 ml Exam Trouble heel slap male with many bruises of the lower extremities Constitutional: alert Neck: supple, non-tender Respiratory: clear to auscultation, normal air movement Cardiovascular: regular rate and rhythm, nl pulses 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: other Results Results 24hrs Laboratory Tests Test 10/30/18 07:40 10/30/18 07:41 10/30/18 10:18 Prothrombin Time 24.8 H Prothrombin Time Ratio 1.9 INR International Normalized Ratio 2.23 Sodium Level 131 L Potassium Level 4.5 Chloride Level 99 Carbon Dioxide Level 24 Anion Gap 8 Blood Urea Nitrogen 12 Creatinine 0.58 L Est Glomerular Filtrat Rate mL/min > 60 Glucose Level 112 Calcium Level 9.2 Total Bilirubin 19.0 H Direct Bilirubin 14.10 H Indirect Bilirubin 4.9 H Aspartate Amino Transf (AST/SGOT) 240 H Alanine Aminotransferase (ALT/SGPT) 116 H Alkaline Phosphatase 343 H Total Protein 7.9 Albumin 3.2 L Globulin 4.70 H Albumin/Globulin Ratio 0.68 White Blood Count 10.9 #H Red Blood Count 2.65 L Hemoglobin 9.1 L Hematocrit 26.2 L Mean Corpuscular Volume 98.9 Mean Corpuscular Hemoglobin 34.3 H Mean Corpuscular Hemoglobin Concent 34.7 Red Cell Distribution Width 18.6 H Platelet Count 154 # Mean Platelet Volume 10.0 Immature Granulocytes % 2.700 H Neutrophils % 66.1 Lymphocytes % 15.7 Monocytes % 14.9 H Eosinophils % 0.2 Basophils % 0.4 Nucleated Red Blood Cells % 0.3 H Immature Granulocytes # 0.290 H Neutrophils # 7.2 Lymphocytes # 1.7 Monocytes # 1.6 H Eosinophils # 0.0 Basophils # 0.0 Nucleated Red Blood Cells # 0.0 Lab Scanned Report REFERENCE LAB Medications Medication Current Medications Paroxetine HCl (Paxil) 30 mg HS PO Last administered on 10/29/18 19:57; Admin Dose 30 MG; Start 10/26/18 at 21:00 Spironolactone (Aldactone) 50 mg DAILY PO Last administered on 10/30/18 08:33; Admin Dose 50 MG; Start 10/27/18 at 09:00 Folic Acid (Folic Acid) 1 mg DAILY PO Last administered on 10/30/18 08:33; Admin Dose 1 MG; Start 10/27/18 at 09:00 Thiamine HCl (Vitamin B1) 100 mg DAILY PO Last administered on 10/30/18 08:33; Admin Dose 100 MG; Start 10/27/18 at 09:00; Stop 11/10/18 at 08:59 Multivitamins Therapeutic (Theragran) 1 tab DAILY PO Last administered on 10/30/18 08:32; Admin Dose 1 TAB; Start 10/27/18 at 09:00 Lorazepam (Ativan) 1 mg Q4H PRN IV withdrawal, seizures Last administered on 10/29/18 08:50; Admin Dose 1 MG; Start 10/26/18 at 19:30 Lorazepam (Ativan) 1 mg Q8H IV Last administered on 10/30/18 12:12; Admin Dose 1 MG; Start 10/26/18 at 19:30 IV Flush (NS 3 ml) 3 ml PER PROTOCOL IV ; Start 10/26/18 at 19:30 Ondansetron HCl (Zofran Inj) 4 mg Q6H PRN IV NAUSEA/VOMITING; Start 10/26/18 at 19:30 Docusate Sodium (Colace) 100 mg Q12H PRN PO .CONSTIPATION; Start 10/26/18 at 19:30 Magnesium Hydroxide (Milk Of Mag) 30 ml DAILY PRN PO .CONSTIPATION; Start 10/26/18 at 19:30 Lisinopril (Zestril) 10 mg BID PO Last administered on 10/30/18at 08:33; Admin Do se 10 MG; Start 10/27/18 at 09:00 Sodium Chloride (Nacl) 1 gm TID PO Last administered on 10/30/18at 12:11; Admin Dose 1 GM; Start 10/27/18 at 13:00 Sodium Chloride 1,000 ml @ 60 mls/hr [id number] IV Last administered on 10/28/18at 02:34; Admin Dose 60 MLS/HR; Start 10/27/18 at 10:00 Methylprednisolone Sodium Succinate (Solu-Medrol) 40 mg DAILY IV Last administered on 10/30/18at 08:32; Admin Dose 40 MG; Start 10/27/18 at 14:30 Rifaximin (Xifaxan) 550 mg BID PO Last administered on 10/30/18at 08:33; Admin Dose 550 MG; Start 10/28/18 at 21:00 Morphine Sulfate (morphine) 6 mg Q4H PRN PO .PAIN 7-10; Start 10/29/18 at 17:30 Lactulose (Enulose) 30 gm Q6 PO ; Start 10/30/18 at 18:00 Phytonadione (Vitamin K) 10 mg ONCE ONCE SC ; Start 10/30/18 at 13:30; Stop 10/30/18 at 13:31; Status TRUDI HUBER MD Oct 30, 2018 13:35
--- NOTE | 2018-10-30 16:47 | CONS ---
Assessment/Plan Assessment/Plan Assessment/Plan (Daily) 1. Hyponatremia due to Hypervolemic Hyponatremia in setting of acute liver failure 2. Rule out SIADH 3. Acute hepatic failure 4. Biliary colic vs cholecystitis 5. H/o alcohol abuse Plan: Na improved to 131- Continue Na chloride tablet 1g lala PO BID Abdominal US- The right kidney measures 10.8 cm. There is normal echogenicity of the right kidney. There is no solid right renal mass, hydronephrosis, or calculus. There is a benign 1 cm cyst in the upper to mid right kidney. Change lisinopirl to 10mg BID, Spironolactone 50mg po daily will follow up Patient seen in collaboration with Dr Baumann. Dw staff Consultation Date/Type/Reason Admit Date/Time Oct 26, 2018 at 17:57 Initial Consult Date 10/27/18 Type of Consult NEPHROLOGY Requesting Provider: PRINCE PENA MD Date/Time of Note DATE: 10/30/18 TIME: 16:46 24 HR Interval Summary Free Text/Dictation nad afebrile Na 131 today no new issues reported overnight per staff Constitutional: requiring IVF Detailed Summary Eyes: no complaints ENT: no complaints Respiratory: no complaints Cardiovascular: no complaints Gastrointestinal: no complaints Genitourinary: no complaints Musculoskeletal: no complaints Skin: no complaints Neurologic: no complaints Exam/Review of Systems Exam Vitals Vital Signs Date Temp Pulse Resp B/P (MAP) Pulse Ox O2 O2 Flow FiO2 Time Delivery Rate 10/30/18 106 16:19 10/30/18 98.3 18 129/68 95 15:58 (88) 10/30/18 Room Air 04:00 Intake and Output 10/29/18 10/29/18 10/30/18 1515:00 23:00 07:00 IntakeIntake Total 900 ml 820 ml BalanceBalance 900 ml 820 ml Constitutional: alert, well developed, obese Psych: nl mood/affect Head: atraumatic Eyes: nl lids, nl sclera ENMT: nl external ears & nose Neck: non-tender Respiratory: clear to auscultation Cardiovascular: nl pulses, other (s1s2) Gastrointestinal: soft, non-tender Musculoskeletal: muscle weakness Extremities: normal pulses 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: nl speech, confused, other (alert/responsive) Skin: other (jaundiced) Lymph: nontender Results Result Diagram: 10/30/18 0741 10/30/18 0740 Results 24hrs Laboratory Tests Test 10/30/18 07:40 10/30/18 07:41 10/30/18 10:18 Prothrombin Time 24.8 H Prothrombin Time Ratio 1.9 INR International Normalized Ratio 2.23 Sodium Level 131 L Potassium Level 4.5 Chloride Level 99 Carbon Dioxide Level 24 Anion Gap 8 Blood Urea Nitrogen 12 Creatinine 0.58 L Est Glomerular Filtrat Rate mL/min > 60 Glucose Level 112 Calcium Level 9.2 Total Bilirubin 19.0 H Direct Bilirubin 14.10 H Indirect Bilirubin 4.9 H Aspartate Amino Transf (AST/SGOT) 240 H Alanine Aminotransferase (ALT/SGPT) 116 H Alkaline Phosphatase 343 H Total Protein 7.9 Albumin 3.2 L Globulin 4.70 H Albumin/Globulin Ratio 0.68 White Blood Count 10.9 #H Red Blood Count 2.65 L Hemoglobin 9.1 L Hematocrit 26.2 L Mean Corpuscular Volume 98.9 Mean Corpuscular Hemoglobin 34.3 H Mean Corpuscular Hemoglobin Concent 34.7 Red Cell Distribution Width 18.6 H Platelet Count 154 # Mean Platelet Volume 10.0 Immature Granulocytes % 2.700 H Neutrophils % 66.1 Lymphocytes % 15.7 Monocytes % 14.9 H Eosinophils % 0.2 Basophils % 0.4 Nucleated Red Blood Cells % 0.3 H Immature Granulocytes # 0.290 H Neutrophils # 7.2 Lymphocytes # 1.7 Monocytes # 1.6 H Eosinophils # 0.0 Basophils # 0.0 Nucleated Red Blood Cells # 0.0 Lab Scanned Report REFERENCE LAB Medications Medication Current Medications Paroxetine HCl (Paxil) 30 mg HS PO Last administered on 10/29/18at 19:57; Admin Dose 30 MG; Start 10/26/18 at 21:00 Spironolactone (Aldactone) 50 mg DAILY PO Last administered on 10/30/18at 08:33; Admin Dose 50 MG; Start 10/27/18 at 09:00 Folic Acid (Folic Acid) 1 mg DAILY PO Last administered on 10/30/18at 08:33; Admin Dose 1 MG; Start 10/27/18 at 09:00 Thiamine HCl (Vitamin B1) 100 mg DAILY PO Last administered on 10/30/18at 08:33; Admin Dose 100 MG; Start 10/27/18 at 09:00; Stop 11/10/18 at 08:59 Multivitamins Therapeutic (Theragran) 1 tab DAILY PO Last administered on 10/30/18 08:32; Admin Dose 1 TAB; Start 10/27/18 at 09:00 Lorazepam (Ativan) 1 mg Q4H PRN IV withdrawal, seizures Last administered on 10/29/18 08:50; Admin Dose 1 MG; Start 10/26/18 at 19:30 Lorazepam (Ativan) 1 mg Q8H IV Last administered on 10/30/18 12:12; Admin Dose 1 MG; Start 10/26/18 at 19:30 IV Flush (NS 3 ml) 3 ml PER PROTOCOL IV ; Start 10/26/18 at 19:30 Ondansetron HCl (Zofran Inj) 4 mg Q6H PRN IV NAUSEA/VOMITING; Start 10/26/18 at 19:30 Docusate Sodium (Colace) 100 mg Q12H PRN PO .CONSTIPATION; Start 10/26/18 at 19:30 Magnesium Hydroxide (Milk Of Mag) 30 ml DAILY PRN PO .CONSTIPATION; Start 10/26/18 at 19:30 Lisinopril (Zestril) 10 mg BID PO Last administered on 10/30/18 08:33; Admin Dose 10 MG; Start 10/27/18 at 09:00 Sodium Chloride (Nacl) 1 gm TID PO Last administered on 10/30/18 12:11; Admin Dose 1 GM; Start 10/27/18 at 13:00 Sodium Chloride 1,000 ml @ 60 mls/hr [id number] IV Last administered on 10/28/18 02:34; Admin Dose 60 MLS/HR; Start 10/27/18 at 10:00 Methylprednisolone Sodium Succinate (Solu-Medrol) 40 mg DAILY IV Last administered on 10/30/18 08:32; Admin Dose 40 MG; Start 10/27/18 at 14:30 Rifaximin (Xifaxan) 550 mg BID PO Last administered on 10/30/18 08:33; Admin Dose 550 MG; Start 10/28/18 at 21:00 Morphine Sulfate (morphine) 6 mg Q4H PRN PO .PAIN 7-10; Start 10/29/18 at 17:30 Lactulose (Enulose) 30 gm Q6 PO ; Start 10/30/18 at 18:00 CORTNEY DANIELS Oct 30, 2018 16:47
[2018-10-30] MEDS: PAROXETINE 10 MG TAB PO SCH (20:58)
[2018-10-30] MEDS: SOD CHLORIDE 0.9% 1,000 ML IV SCH (21:20)
--- NOTE | 2018-10-30 23:39 | PN ---
Date/Time of Note Date/Time of Note DATE: 10/30/18 TIME: 23:37 Assessment/Plan Lines/Catheters IV [facility] Saline Lock Assessment/Plan Chief Complaint/Hosp Course 1. Thickened gallbladder wall with sludge and small stones. doubt this is secondary to acute cholecystitis. Patient has acute liver failure with cirrhosis and most probably edema of the gallbladder; tolerating diet -Medical/GI optimization -Alcohol cessation highly encouraged -Antibiotics -No emergent surgical intervention necessary at this time. 2. Acute liver cirrhosis /Hepatitis with transaminitis, hyperbilirubinemia; currently on steroids -Trend labs -Medical/GI optimization -Alcohol cessation highly encouraged 3. Alcohol abuse -As above -monitor closely for withdrawal 4. Acute hyponatremia secondary to volume status: Mildly improved -Judicious fluid management 5. Anemia most likely chronic disease and iron deficiency, doubt acute blood loss -Monitor and treat per medical team 6. Elevated lipase questionable pancreatitis -Trend levels 7. BMI 39 -Encourage nutrition optimization -Encourage exercise 8. Hypoalbuminemia, multifactorial -Medical optimization (cirrhosis, nutrition, cessation of alcohol abuse) Thank you. Patient seen and examined in collaboration with Dr. Yuan Fleming. Subjective 24 Hr Interval Summary Feels well. No abdominal pain. Tolerating diet. No fevers, chills, sob, congested cough, cp, palpitations, chiu, dizziness, n/v/d/dysuria. Exam/Review of Systems Vital Signs Vitals Vital Signs Date Temp Pulse Resp B/P (MAP) Pulse Ox O2 O2 Flow FiO2 Time Delivery Rate 10/30/18 104 20:00 10/30/18 98.0 20 135/65 92 19:53 (88) 10/30/18 Room Air 04:00 Intake and Output 10/29/18 10/29/18 10/30/18 1515:00 23:00 07:00 IntakeIntake Total 900 ml 820 ml BalanceBalance 900 ml 820 ml Exam Free Text/Dictation Constitutional: alert, oriented, obese; No distress Psych: anxiety; No confusion Head: normocephalic Eyes: EOMI, PERRL, icteric; No nl conjunctiva ENMT: nl external ears & nose, nl lips & teeth, nl nasal mucosa & septum Neck: supple, non-tender Respiratory: normal air movement; No congested cough, No labored breathing, No wheezing Cardiovascular: regular rate and rhythm, edema Gastrointestinal: soft, non-tender, distended; negative Richards's by palpation No rebound or guarding Genitourinary - Male: nl penis, nl scrotum Musculoskeletal: nl extremities to inspection; No joint tenderness Extremities: edema; No calf tenderness 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: nl mental status, nl speech, nl strength Skin: nl turgor, ecchymosis; No diaphoresis Lymph: nl lymph nodes Results Result Diagram: 10/30/18 0741 10/30/18 0740 ANALI BERUMEN NP Oct 30, 2018 23:39
[2018-10-31] VITALS (9 sets, daily range): BP systolic 108–131; BP diastolic 54–77; PULSE 75–103; RESP 17–18
[2018-10-31] MEDS: LORAZEPAM 2 MG INJ IV SCH ×3 (03:30→22:08)
[2018-10-31] MEDS: LACTULOSE 30ML CUP PO SCH ×4 (05:41→23:46)
[2018-10-31] MEDS: METHYLPREDNISOLONE 40 MG INJ IV SCH (08:52)
[2018-10-31] MEDS: SODIUM CHLORIDE 1 GM TAB PO SCH ×3 (08:53→20:12)
[2018-10-31] MEDS: RIFAXIMIN 550 MG TAB PO SCH ×2 (08:53→20:12)
[2018-10-31] MEDS: MULTIVITAMINS THERAPEUTIC TAB PO SCH (08:53)
[2018-10-31] MEDS: LISINOPRIL 10 MG TAB PO SCH ×2 (08:53→20:12)
[2018-10-31] MEDS: FOLIC ACID 1 MG TAB PO SCH (08:53)
[2018-10-31] MEDS: SPIRONOLACTONE 25 MG TAB PO SCH (08:54)
[2018-10-31] MEDS: THIAMINE 100 MG TAB PO SCH (08:54)
--- NOTE | 2018-10-31 09:48 | PN ---
Date/Time of Note Date/Time of Note DATE: 10/31/18 TIME: 09:44 Assessment/Plan VTE Prophylaxis Risk score (from [facility] [place])>0 risk: 2 SCD applied (from [facility] [place]): Yes Pharmacological prophylaxis: NA/contraindicated Pharm contraindication: liver dx Lines/Catheters [facility] Saline Lock Assessment/Plan Assessment/Plan Assessment: Alcoholic hepatitis function of 58.4 Hepatomegaly and fatty liver 2/2 to ETOH abuse Elevated LFTs - trending down Direct hyperbilirubinemia- stable -Rule out obstruction versus hepatocellular disease. Hepatitis C AB- reactive- RNA Negative Normocytic anemia Thrombus cytopenia Coagulopathy EtOH abuse Obesity Hyponatremia Plan: Continue lactulose MRCP -negative Solu-Medrol 40 mg daily for a total of 28 days Vitamin K 10 mg x 1 Continue rifaximin Monitor LFTs Patient seen in collaboration with Dr. Nuñez/Enedina Subjective: Course reviewed with nursing staff Patient interviewed and examined All labs, imaging and other results reviewed The patient is awake, and alert . Patient is tolerating the diet well. He reports one bowel movement today on lactulose. Patient is confused. White blood count is increasing, bilirubin is trending down. Hepatitis C RNA came back negative, discussed with the patient. We will continue monitoring. PHYSICAL EXAMINATION: GENERAL: Awake, alert, Confused, obese, jaundice SKIN: Abrasion to right eyebrow, multiple bruises on body EYES: Pupils equal reactive to light, icteric sclera, no discharge. EARS/NOSE AND THROAT: Ears normal, nose normal, oropharynx normal NECK: Supple, no masses CHEST: Inspection within normal limits. CARDIOVASCULAR: Heart: Regular rate and rhythm RESPIRATORY: Lungs clear to auscultation GASTROINTESTINAL AND LIVER: Abdomen: Soft, non tenderness, distended, no hernias, no guarding, no rebound tenderness, normoactive bowel sounds. Rectal: Deferred. EXTREMITIES: No edema Result Diagram: 10/31/18 0610 10/31/18 0610 Results 24hrs Laboratory Tests Test 10/30/18 10:18 10/31/18 06:10 Lab Scanned Report REFERENCE LAB White Blood Count 11.8 H Red Blood Count 2.76 L Hemoglobin 9.5 L Hematocrit 27.2 L Mean Corpuscular Volume 98.6 Mean Corpuscular Hemoglobin 34.4 H Mean Corpuscular Hemoglobin Concent 34.9 Red Cell Distribution Width 19.4 H Platelet Count 153 Mean Platelet Volume 9.5 Immature Granulocytes % 5.000 H Neutrophils % 56.8 Lymphocytes % 21.1 Monocytes % 16.5 H Eosinophils % 0.4 Basophils % 0.2 Nucleated Red Blood Cells % 0.4 H Immature Granulocytes # 0.590 H Neutrophils # 6.7 Lymphocytes # 2.5 Monocytes # 1.9 H Eosinophils # 0.1 Basophils # 0.0 Nucleated Red Blood Cells # 0.1 H Prothrombin Time 23.6 H Prothrombin Time Ratio 1.8 INR International Normalized Ratio 2.10 Activated Partial Thromboplast Time 45.4 H Sodium Level 134 L Potassium Level 4.5 Chloride Level 99 Carbon Dioxide Level 27 Anion Gap 8 Blood Urea Nitrogen 13 Creatinine 0.60 L Est Glomerular Filtrat Rate mL/min > 60 Glucose Level 101 Calcium Level 9.6 Magnesium Level 2.4 Total Bilirubin 17.8 H Direct Bilirubin 13.20 H Indirect Bilirubin 4.6 H Aspartate Amino Transf (AST/SGOT) 227 H Alanine Aminotransferase (ALT/SGPT) 122 H Alkaline Phosphatase 335 H Total Protein 8.1 Albumin 3.2 L Globulin 4.90 H Albumin/Globulin Ratio 0.65 CC: LASHON NUÑEZ MD ; Exam/Review of Systems Exam Vitals Vital Signs Date Temp Pulse Resp B/P (MAP) Pulse Ox O2 O2 Flow FiO2 Time Delivery Rate 10/31/18 82 08:00 10/31/18 98.7 17 108/57 97 07:45 (74) 10/30/18 Room Air 04:00 Intake and Output 10/30/18 10/30/18 10/31/18 1515:00 23:00 07:00 IntakeIntake Total 800 ml 1200 ml OutputOutput Total 1500 ml BalanceBalance 800 ml -300 ml Results Results 24hrs Laboratory Tests Test 10/30/18 10:18 10/31/18 06:10 Lab Scanned Report REFERENCE LAB White Blood Count 11.8 H Red Blood Count 2.76 L Hemoglobin 9.5 L Hematocrit 27.2 L Mean Corpuscular Volume 98.6 Mean Corpuscular Hemoglobin 34.4 H Mean Corpuscular Hemoglobin Concent 34.9 Red Cell Distribution Width 19.4 H Platelet Count 153 Mean Platelet Volume 9.5 Immature Granulocytes % 5.000 H Neutrophils % 56.8 Lymphocytes % 21.1 Monocytes % 16.5 H Eosinophils % 0.4 Basophils % 0.2 Nucleated Red Blood Cells % 0.4 H Immature Granulocytes # 0.590 H Neutrophils # 6.7 Lymphocytes # 2.5 Monocytes # 1.9 H Eosinophils # 0.1 Basophils # 0.0 Nucleated Red Blood Cells # 0.1 H Prothrombin Time 23.6 H Prothrombin Time Ratio 1.8 INR International Normalized Ratio 2.10 Activated Partial Thromboplast Time 45.4 H Sodium Level 134 L Potassium Level 4.5 Chloride Level 99 Carbon Dioxide Level 27 Anion Gap 8 Blood Urea Nitrogen 13 Creatinine 0.60 L Est Glomerular Filtrat Rate mL/min > 60 Glucose Level 101 Calcium Level 9.6 Magnesium Level 2.4 Total Bilirubin 17.8 H Direct Bilirubin 13.20 H Indirect Bilirubin 4.6 H Aspartate Amino Transf (AST/SGOT) 227 H Alanine Aminotransferase (ALT/SGPT) 122 H Alkaline Phosphatase 335 H Total Protein 8.1 Albumin 3.2 L Globulin 4.90 H Albumin/Globulin Ratio 0.65 Medications Medication Current Medications Paroxetine HCl (Paxil) 30 mg HS PO Last administered on 10/30/18 20:58; Admin Dose 30 MG; Start 10/26/18 at 21:00 Spironolactone (Aldactone) 50 mg DAILY PO Last administered on 10/31/18 08:54; Admin Dose 50 MG; Start 10/27/18 at 09:00 Folic Acid (Folic Acid) 1 mg DAILY PO Last administered on 10/31/18 08:53; Admin Dose 1 MG; Start 10/27/18 at 09:00 Thiamine HCl (Vitamin B1) 100 mg DAILY PO Last administered on 10/31/18 08:54; Admin Dose 100 MG; Start 10/27/18 at 09:00; Stop 11/10/18 at 08:59 Multivitamins Therapeutic (Theragran) 1 tab DAILY PO Last administered on 10/31/18 08:53; Admin Dose 1 TAB; Start 10/27/18 at 09:00 Lorazepam (Ativan) 1 mg Q4H PRN IV withdrawal, seizures Last administered on 10/29/18 08:50; Admin Dose 1 MG; Start 10/26/18 at 19:30 Lorazepam (Ativan) 1 mg Q8H IV Last administered on 10/30/18 20:58; Admin Dose 1 MG; Start 10/26/18 at 19:30 IV Flush (NS 3 ml) 3 ml PER PROTOCOL IV ; Start 10/26/18 at 19:30 Ondansetron HCl (Zofran Inj) 4 mg Q6H PRN IV NAUSEA/VOMITING; Start 10/26/18 at 19:30 Docusate Sodium (Colace) 100 mg Q12H PRN PO .CONSTIPATION; Start 10/26/18 at 19:30 Magnesium Hydroxide (Milk Of Mag) 30 ml DAILY PRN PO .CONSTIPATION; Start 10/26/18 at 19:30 Lisinopril (Zestril) 10 mg BID PO Last administered on 10/31/18 08:53; Admin Dose 10 MG; Start 10/27/18 at 09:00 Sodium Chloride (Nacl) 1 gm TID PO Last administered on 10/31/18 08:53; Admin Dose 1 GM; Start 10/27/18 at 13:00 Sodium Chloride 1,000 ml @ 60 mls/hr [id number] IV Last administered on 10/28/18 02:34; Admin Dose 60 MLS/HR; Start 10/27/18 at 10:00 Methylprednisolone Sodium Succinate (Solu-Medrol) 40 mg DAILY IV Last administered on 10/31/18 08:52; Admin Dose 40 MG; Start 10/27/18 at 14:30 Rifaximin (Xifaxan) 550 mg BID PO Last administered on 10/31/18 08:53; Admin Dose 550 MG; Start 10/28/18 at 21:00 Morphine Sulfate (morphine) 6 mg Q4H PRN PO .PAIN 7-10; Start 10/29/18 at 17:30 Lactulose (Enulose) 30 gm Q6 PO Last administered on 10/31/18 05:41; Admin Dose 30 GM; Start 10/30/18 at 18:00 SOPHIA DEJESUS NP Oct 31, 2018 09:48
--- NOTE | 2018-10-31 11:16 | PN ---
Date/Time of Note Date/Time of Note DATE: 10/31/18 TIME: 11:11 Assessment/Plan VTE Prophylaxis Risk score (from [facility])>0 risk: 2 SCD applied (from [facility]): Yes Pharmacological prophylaxis: heparin Lines/Catheters IV Catheter Type (from [facility]): Saline Lock Assessment/Plan Problems: (1) Alcohol abuse Status: Acute Comment: At this time there is no further concern for alcohol withdrawal or delirium tremens. Our main concern here is evaluation of the liver and possible transfer to an alcohol rehab facility. (2) Decompensated hepatic cirrhosis Status: Acute Comment: He has sludge on imaging studies. If the MRCP scan is nondiagnostic.(MPRESSION: 1. Nondiagnostic MRCP due to extensive central standing wave artifact. No evidence of biliary dilatation. 2. Morphologic changes in the liver compatible with cirrhosis. Splenomegaly and trace ascites in keeping with portal hypertension. 3. Nonspecific diffuse gallbladder wall thickening, which is nonspecific in the setting of cirrhosis and portal hypertension.) Therefore to make sure about what is going on with the biliary tree we cannot d raw any conclusions as of today. Our options are either ordering a HIDA scan or watchful waiting. I am going to go ahead and order a HIDA scan. In addition there may be a consideration he is low-dose nadolol for the portal hypertension, defer to GI consult (3) Hypertension Status: Acute Comment: Adequate control Qualifiers: Hypertension type: essential hypertension Qualified Codes: I10 - Essential (primary) hypertension (4) Migraine headache Status: Chronic Comment: Noted. Qualifiers: Migraine type: unspecified Status migrainosus presence: without status migrainosus Intractability: not intractable Qualified Codes: G43.909 - Kevyn rebekah, unspecified, not intractable, without status migrainosus Result Diagram: 10/31/18 0610 10/31/18 0610 Results 24hrs Laboratory Tests Test 10/31/18 06:10 White Blood Count 11.8 H Red Blood Count 2.76 L Hemoglobin 9.5 L Hematocrit 27.2 L Mean Corpuscular Volume 98.6 Mean Corpuscular Hemoglobin 34.4 H Mean Corpuscular Hemoglobin Concent 34.9 Red Cell Distribution Width 19.4 H Platelet Count 153 Mean Platelet Volume 9.5 Immature Granulocytes % 5.000 H Neutrophils % 56.8 Lymphocytes % 21.1 Monocytes % 16.5 H Eosinophils % 0.4 Basophils % 0.2 Nucleated Red Blood Cells % 0.4 H Immature Granulocytes # 0.590 H Neutrophils # 6.7 Lymphocytes # 2.5 Monocytes # 1.9 H Eosinophils # 0.1 Basophils # 0.0 Nucleated Red Blood Cells # 0.1 H Prothrombin Time 23.6 H Prothrombin Time Ratio 1.8 INR International Normalized Ratio 2.10 Activated Partial Thromboplast Time 45.4 H Sodium Level 134 L Potassium Level 4.5 Chloride Level 99 Carbon Dioxide Level 27 Anion Gap 8 Blood Urea Nitrogen 13 Creatinine 0.60 L Est Glomerular Filtrat Rate mL/min > 60 Glucose Level 101 Calcium Level 9.6 Magnesium Level 2.4 Total Bilirubin 17.8 H Direct Bilirubin 13.20 H Indirect Bilirubin 4.6 H Aspartate Amino Transf (AST/SGOT) 227 H Alanine Aminotransferase (ALT/SGPT) 122 H Alkaline Phosphatase 335 H Total Protein 8.1 Albumin 3.2 L Globulin 4.90 H Albumin/Globulin Ratio 0.65 Subjective 24 Hr Interval Summary Free Text/Dictation Patient reports is feeling a little bit better today. No right upper quadrant pain or pain radiating through to the right back. Although he does have that historically Constitutional: no complaints Respiratory: no complaints Cardiovascular: no complaints Gastrointestinal: no complaints Genitourinary: no complaints Exam/Review of Systems Exam Vitals Vital Signs Date Temp Pulse Resp B/P (MAP) Pulse Ox O2 O2 Flow FiO2 Time Delivery Rate 10/31/18 82 08:00 10/31/18 98.7 17 108/57 97 07:45 (74) 10/30/18 Room Air 04:00 Intake and Output 10/30/18 10/30/18 10/31/18 1515:00 23:00 07:00 IntakeIntake Total 800 ml 1200 ml OutputOutput Total 1500 ml BalanceBalance 800 ml -300 ml Exam Patient is significantly less tremulous today and much more alert and vibrant Constitutional: alert, oriented Neck: supple, non-tender Respiratory: clear to auscultation, normal air movement Cardiovascular: regular rate and rhythm, nl pulses Gastrointestinal: soft, nl liver, spleen, non-tender Results Results 24hrs Laboratory Tests Test 10/31/18 06:10 White Blood Count 11.8 H Red Blood Count 2.76 L Hemoglobin 9.5 L Hematocrit 27.2 L Mean Corpuscular Volume 98.6 Mean Corpuscular Hemoglobin 34.4 H Mean Corpuscular Hemoglobin Concent 34.9 Red Cell Distribution Width 19.4 H Platelet Count 153 Mean Platelet Volume 9.5 Immature Granulocytes % 5.000 H Neutrophils % 56.8 Lymphocytes % 21.1 Monocytes % 16.5 H Eosinophils % 0.4 Basophils % 0.2 Nucleated Red Blood Cells % 0.4 H Immature Granulocytes # 0.590 H Neutrophils # 6.7 Lymphocytes # 2.5 Monocytes # 1.9 H Eosinophils # 0.1 Basophils # 0.0 Nucleated Red Blood Cells # 0.1 H Prothrombin Time 23.6 H Prothrombin Time Ratio 1.8 INR International Normalized Ratio 2.10 Activated Partial Thromboplast Time 45.4 H Sodium Level 134 L Potassium Level 4.5 Chloride Level 99 Carbon Dioxide Level 27 Anion Gap 8 Blood Urea Nitrogen 13 Creatinine 0.60 L Est Glomerular Filtrat Rate mL/min > 60 Glucose Level 101 Calcium Level 9.6 Magnesium Level 2.4 Total Bilirubin 17.8 H Direct Bilirubin 13.20 H Indirect Bilirubin 4.6 H Aspartate Amino Transf (AST/SGOT) 227 H Alanine Aminotransferase (ALT/SGPT) 122 H Alkaline Phosphatase 335 H Total Protein 8.1 Albumin 3.2 L Globulin 4.90 H Albumin/Globulin Ratio 0.65 Medications Medication Current Medications Paroxetine HCl (Paxil) 30 mg HS PO Last administered on 10/30/18 20:58; Admin Dose 30 MG; Start 10/26/18 at 21:00 Spironolactone (Aldactone) 50 mg DAILY PO Last administered on 10/31/18 08:54; Admin Dose 50 MG; Start 10/27/18 at 09:00 Folic Acid (Folic Acid) 1 mg DAILY PO Last administered on 10/31/18 08:53; Admin Dose 1 MG; Start 10/27/18 at 09:00 Thiamine HCl (Vitamin B1) 100 mg DAILY PO Last administered on 10/31/18 08:54; Admin Dose 100 MG; Start 10/27/18 at 09:00; Stop 11/10/18 at 08:59 Multivitamins Therapeutic (Theragran) 1 tab DAILY PO Last administered on 10/31/18 08:53; Admin Dose 1 TAB; Start 10/27/18 at 09:00 Lorazepam (Ativan) 1 mg Q4H PRN IV withdrawal, seizures Last administered on 10/29/18 08:50; Admin Dose 1 MG; Start 10/26/18 at 19:30 Lorazepam (Ativan) 1 mg Q8H IV Last administered on 10/30/18 20:58; Admin Dose 1 MG; Start 10/26/18 at 19:30 IV Flush (NS 3 ml) 3 ml PER PROTOCOL IV ; Start 10/26/18 at 19:30 Ondansetron HCl (Zofran Inj) 4 mg Q6H PRN IV NAUSEA/VOMITING; Start 10/26/18 at 19:30 Docusate Sodium (Colace) 100 mg Q12H PRN PO .CONSTIPATION; Start 10/26/18 at 19:30 Magnesium Hydroxide (Milk Of Mag) 30 ml DAILY PRN PO .CONSTIPATION; Start 10/26/18 at 19:30 Lisinopril (Zestril) 10 mg BID PO Last administered on 10/31/18 08:53; Admin Dose 10 MG; Start 10/27/18 at 09:00 Sodium Chloride (Nacl) 1 gm TID PO Last administered on 10/31/18 08:53; Admin Dose 1 GM; Start 10/27/18 at 13:00 Sodium Chloride 1,000 ml @ 60 mls/hr [id number] IV Last administered on 10/28/18 02:34; Admin Dose 60 MLS/HR; Start 10/27/18 at 10:00 Methylprednisolone Sodium Succinate (Solu-Medrol) 40 mg DAILY IV Last administered on 10/31/18 08:52; Admin Dose 40 MG; Start 10/27/18 at 14:30 Rifaximin (Xifaxan) 550 mg BID PO Last administered on 10/31/18 08:53; Admin Dose 550 MG; Start 10/28/18 at 21:00 Morphine Sulfate (morphine) 6 mg Q4H PRN PO .PAIN 7-10; Start 10/29/18 at 17:30 Lactulose (Enulose) 30 gm Q6 PO Last administered on 10/31/18 05:41; Admin Dose 30 GM; Start 10/30/18 at 18:00 TRUDI VILLEDA MD Oct 31, 2018 11:15
[2018-10-31] MEDS: SOD CHLORIDE 0.9% 1,000 ML IV SCH (13:55)
--- NOTE | 2018-10-31 14:37 | PN ---
Date/Time of Note Date/Time of Note DATE: 10/31/18 TIME: 14:35 Assessment/Plan Lines/Catheters IV [facility] (from [facility]): Saline Lock Assessment/Plan Chief Complaint/Hosp Course 1. Thickened gallbladder wall with sludge and small stones. doubt this is secondary to acute cholecystitis. Patient has acute liver failure with cirrhosis and most probably edema of the gallbladder; tolerating diet; on antibiotic therapy -Medical/GI optimization -Alcohol cessation highly encouraged -No emergent surgical intervention necessary at this time. 2. Acute liver cirrhosis /Hepatitis with transaminitis, hyperbilirubinemia; currently on steroids and lactulose; bilirubin improving -Trend labs -Medical/GI optimization -Alcohol cessation highly encouraged 3. Alcohol abuse -As above -monitor closely for withdrawal 4. Acute hyponatremia secondary to volume status: Improved -Judicious fluid management 5. Anemia most likely chronic disease and iron deficiency -Monitor and treat per medical team 6. Elevated lipase questionable pancreatitis -Trend levels 7. BMI 39 -Encourage nutrition optimization -Encourage exercise 8. Hypoalbuminemia, multifactorial -Medical optimization (cirrhosis, nutrition, cessation of alcohol abuse) Thank you. Patient seen and examined in collaboration with Dr. Yuan Fleming. Subjective 24 Hr Interval Summary No acute abdominal pain. Multiple bowel movements-on lactulose. Total bili improving. No fevers, chills, sob, congested cough, cp, palpitations, chiu, dizziness, nausea, vomiting, diarrhea, dysuria. Exam/Review of Systems Vital Signs Vitals Vital Signs Date Temp Pulse Resp B/P (MAP) Pulse Ox O2 O2 Flow FiO2 Time Delivery Rate 10/31/18 87 12:00 10/31/18 98.1 17 128/77 93 11:57 (94) 10/30/18 Room Air 04:00 Intake and Output 10/30/18 10/30/18 10/31/18 1515:00 23:00 07:00 IntakeIntake Total 800 ml 1200 ml OutputOutput Total 1500 ml BalanceBalance 800 ml -300 ml Exam Free Text/Dictation Constitutional: alert, oriented, obese; No distress Psych: anxiety; No confusion Head: normocephalic Eyes: EOMI, PERRL, icteric; No nl conjunctiva ENMT: nl external ears & nose, nl lips & teeth, nl nasal mucosa & septum Neck: supple, non-tender Respiratory: normal air movement; No congested cough, No labored breathing, No wheezing Cardiovascular: regular rate and rhythm, edema Gastrointestinal: soft, non-tender, distended; negative Richards's by palpation No rebound or guarding Genitourinary - Male: nl penis, nl scrotum Musculoskeletal: nl extremities to inspection; No joint tenderness Extremities: edema; No calf tenderness 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: nl mental status, nl speech, nl strength Skin: nl turgor, ecchymosis; No diaphoresis Lymph: nl lymph nodes Results Result Diagram: 10/31/18 0610 10/31/18 0610 ANALI BERUMEN NP Oct 31, 2018 14:37
[2018-10-31] MEDS: PAROXETINE 10 MG TAB PO SCH (20:12)
[2018-11-01] VITALS (9 sets, daily range): BP systolic 104–127; BP diastolic 55–70; PULSE 57–95; RESP 16–20
[2018-11-01] MEDS: LORAZEPAM 2 MG INJ IV SCH (03:30)
[2018-11-01] MEDS: LACTULOSE 30ML CUP PO SCH ×3 (05:43→17:37)
[2018-11-01] MEDS: SOD CHLORIDE 0.9% 1,000 ML IV SCH (05:43)
[2018-11-01] MEDS: MULTIVITAMINS THERAPEUTIC TAB PO SCH (08:19)
[2018-11-01] MEDS: FOLIC ACID 1 MG TAB PO SCH (08:19)
[2018-11-01] MEDS: SPIRONOLACTONE 25 MG TAB PO SCH (08:19)
[2018-11-01] MEDS: THIAMINE 100 MG TAB PO SCH (08:19)
[2018-11-01] MEDS: METHYLPREDNISOLONE 40 MG INJ IV SCH (08:19)
[2018-11-01] MEDS: RIFAXIMIN 550 MG TAB PO SCH ×2 (08:19→21:22)
[2018-11-01] MEDS: SODIUM CHLORIDE 1 GM TAB PO SCH ×3 (08:19→21:22)
[2018-11-01] MEDS: LISINOPRIL 10 MG TAB PO SCH ×2 (08:23→21:22)
--- NOTE | 2018-11-01 11:21 | PN ---
Date/Time of Note Date/Time of Note DATE: 11/01/18 TIME: 11:20 Assessment/Plan VTE Prophylaxis Risk score (from Ns)>0 risk: 2 SCD applied (from [facility] [place]): Yes Pharmacological prophylaxis: NA/contraindicated Pharm contraindication: liver dx, anticoag not tolerated Lines/Catheters IV [facility] ([facility] Saline Lock Assessment/Plan Hospital Course SUBJECTIVE: Patient is very sleepy. He is arousable. He received a dose of Ativan last night for restlessness. Currently denies any hallucination, delusion, suicidal thoughts or others. OBJECTIVE: Vital signs-see below PHYSICAL EXAM: Constitutional: Jaundiced male, sedated, arousable to voice. HEENT: Head atraumatic and normocephalic. Eyes: Extraocular muscles intact.Icteric sclerae. Pupils equal bilaterally, reactive to light. NECK: Supple without lymph node. CHEST: Clear and good breath sounds equally. No wheezing. No rhonchi. HEART: S1, S2. Regular rate and rhythm. ABDOMEN: Soft, nontender. Bowel sounds were present. EXTREMITIES: Full range of motion in all the extremities. No cyanosis, clubbing or edema. NEUROLOGIC: Alert and oriented x3. No focal deficit. No sensory deficit. PSYCHOSOCIAL: In a good mood. No signs of depression. INTEGUMENTARY: Jaundiced+ ASSESSMENT AND PLAN: 53-year-old male with alcoholic liver cirrhosis, hypertension, treated with 1 month of worsening jaundice, abdominal pain with nausea/vomiting found to have worsening liver fxn.. 1.Decompensated Alcoholic Liver Cirrhosis -cessation advised -f/u GI recs -cont.medical mgmt/supportive care 2. Alcohol abuse,active -At this time there is no further concern for alcohol withdrawal or delirium tremens. -sw f/u 3.Hypertension -Adequate control -on ACEi 4.Hyponatremia 2/2 alcoholism/liver disease -stable and improving -limit free water 5.Transaminase elevation w/hyperbilirubinemia 2/2 #2 -monitor -asymptomatic 6.Obesity -life style changes advised -obtain A1C/Lipid panel prophylaxis:scds/ppi diet: regular code:hubert disp:cont.current management.DC planning in 24-48 hrs once cleared from GI and SW to d/w inpt alcohol rehab program if pt interested. patient was een in collabortauon with Result Diagram: 11/01/18 0549 11/01/18 0549 Results 24hrs Laboratory Tests Test 11/01/18 05:49 White Blood Count 13.5 H Red Blood Count 2.83 L Hemoglobin 9.7 L Hematocrit 28.3 L Mean Corpuscular Volume 100.0 Mean Corpuscular Hemoglobin 34.3 H Mean Corpuscular Hemoglobin Concent 34.3 Red Cell Distribution Width 19.7 H Platelet Count 148 Mean Platelet Volume 9.6 Immature Granulocytes % 6.600 H Neutrophils % Segmented Neutrophils % (Manual) 57 Band Neutrophils % (Manual) 5 H Lymphocytes % Lymphocytes % (Manual) 23 Monocytes % Monocytes % (Manual) 13 H Eosinophils % Basophils % Basophils % (Manual) 1 Myelocytes % (Manual) 1 H Nucleated Red Blood Cells % 4 H Immature Granulocytes # 0.890 H Neutrophils # Neutrophils # (Manual) 7.8 H Band Neutrophils # 0.6 Lymphocytes (Manual) 3.1 H Lymphocytes # Monocytes # Monocytes # (Manual) 1.7 H Eosinophils # Basophils # Basophils # (Manual) 0.1 H Myelocytes # 0.1 H Nucleated Red Blood Cells # Platelet Estimate NORMAL Polychromasia 2+ Hypochromasia 1+ Poikilocytosis 2+ Anisocytosis 3+ Microcytosis 1+ Macrocytosis 3+ Target Cells 1+ Erythrocyte Sedimentation Rate 20 Sodium Level 132 L Potassium Level 4.1 Chloride Level 99 Carbon Dioxide Level 25 Anion Gap 8 Blood Urea Nitrogen 16 Creatinine 0.64 Est Glomerular Filtrat Rate mL/min > 60 Glucose Level 127 Calcium Level 9.4 Magnesium Level 2.2 Total Bilirubin 16.2 H Direct Bilirubin 12.20 H Indirect Bilirubin 4.0 H Aspartate Amino Transf (AST/SGOT) 203 H Alanine Aminotransferase (ALT/SGPT) 134 H Alkaline Phosphatase 255 H Total Protein 7.4 Albumin 3.0 L Globulin 4.40 H Albumin/Globulin Ratio 0.68 Amylase Level 117 Lipase 429 H Exam/Review of Systems Exam Vitals Vital Signs Date Temp Pulse Resp B/P (MAP) Pulse Ox O2 O2 Flow FiO2 Time Delivery Rate 11/01/18 78 09:31 11/01/18 97.6 18 114/57 94 08:00 (76) 10/30/18 Room Air 04:00 Intake and Output 10/31/18 10/31/18 11/01/18 1515:00 23:00 07:00 IntakeIntake Total 800 ml 1000 ml OutputOutput Total 1200 ml BalanceBalance 800 ml -200 ml Results Results 24hrs Laboratory Tests Test 11/01/18 05:49 White Blood Count 13.5 H Red Blood Count 2.83 L Hemoglobin 9.7 L Hematocrit 28.3 L Mean Corpuscular Volume 100.0 Mean Corpuscular Hemoglobin 34.3 H Mean Corpuscular Hemoglobin Concent 34.3 Red Cell Distribution Width 19.7 H Platelet Count 148 Mean Platelet Volume 9.6 Immature Granulocytes % 6.600 H Neutrophils % Segmented Neutrophils % (Manual) 57 Band Neutrophils % (Manual) 5 H Lymphocytes % Lymphocytes % (Manual) 23 Monocytes % Monocytes % (Manual) 13 H Eosinophils % Basophils % Basophils % (Manual) 1 Myelocytes % (Manual) 1 H Nucleated Red Blood Cells % 4 H Immature Granulocytes # 0.890 H Neutrophils # Neutrophils # (Manual) 7.8 H Band Neutrophils # 0.6 Lymphocytes (Manual) 3.1 H Lymphocytes # Monocytes # Monocytes # (Manual) 1.7 H Eosinophils # Basophils # Basophils # (Manual) 0.1 H Myelocytes # 0.1 H Nucleated Red Blood Cells # Platelet Estimate NORMAL Polychromasia 2+ Hypochromasia 1+ Poikilocytosis 2+ Anisocytosis 3+ Microcytosis 1+ Macrocytosis 3+ Target Cells 1+ Erythrocyte Sedimentation Rate 20 Sodium Level 132 L Potassium Level 4.1 Chloride Level 99 Carbon Dioxide Level 25 Anion Gap 8 Blood Urea Nitrogen 16 Creatinine 0.64 Est Glomerular Filtrat Rate mL/min > 60 Glucose Level 127 Calcium Level 9.4 Magnesium Level 2.2 Total Bilirubin 16.2 H Direct Bilirubin 12.20 H Indirect Bilirubin 4.0 H Aspartate Amino Transf (AST/SGOT) 203 H Alanine Aminotransferase (ALT/SGPT) 134 H Alkaline Phosphatase 255 H Total Protein 7.4 Albumin 3.0 L Globulin 4.40 H Albumin/Globulin Ratio 0.68 Amylase Level 117 Lipase 429 H Medications Medication Current Medications Paroxetine HCl (Paxil) 30 mg HS PO Last administered on 10/31/18at 20:12; Admin Dose 30 MG; Start 10/26/18 at 21:00 Spironolactone (Aldactone) 50 mg DAILY PO Last administered on 11/01/18at 08:19; Admin Dose 50 MG; Start 10/27/18 at 09:00 Folic Acid (Folic Acid) 1 mg DAILY PO Last administered on 11/01/18 08:19; Admin Dose 1 MG; Start 10/27/18 at 09:00 Thiamine HCl (Vitamin B1) 100 mg DAILY PO Last administered on 11/01/18 08:19; Admin Dose 100 MG; Start 10/27/18 at 09:00; Stop 11/10/18 at 08:59 Multivitamins Therapeutic (Theragran) 1 tab DAILY PO Last administered on 11/01/18 08:19; Admin Dose 1 TAB; Start 10/27/18 at 09:00 Lorazepam (Ativan) 1 mg Q4H PRN IV withdrawal, seizures Last administered on 10/29/18 08:50; Admin Dose 1 MG; Start 10/26/18 at 19:30 IV Flush (NS 3 ml) 3 ml PER PROTOCOL IV ; Start 10/26/18 at 19:30 Ondansetron HCl (Zofran Inj) 4 mg Q6H PRN IV NAUSEA/VOMITING; Start 10/26/18 at 19:30 Docusate Sodium (Colace) 100 mg Q12H PRN PO .CONSTIPATION; Start 10/26/18 at 19:30 Magnesium Hydroxide (Milk Of Mag) 30 ml DAILY PRN PO .CONSTIPATION; Start 10/26/18 at 19:30 Lisinopril (Zestril) 10 mg BID PO Last administered on 11/01/18 08:23; Admin Dose 10 MG; Start 10/27/18 at 09:00 Sodium Chloride (Nacl) 1 gm TID PO Last administered on 11/01/18 08:19; Admin Dose 1 GM; Start 10/27/18 at 13:00 Methylprednisolone Sodium Succinate (Solu-Medrol) 40 mg DAILY IV Last administered on 11/01/18 08:19; Admin Dose 40 MG; Start 10/27/18 at 14:30 Rifaximin (Xifaxan) 550 mg BID PO Last administered on 11/01/18 08:19; Admin Dose 550 MG; Start 10/28/18 at 21:00 Lactulose (Enulose) 30 gm Q6 PO Last administered on 11/01/18 05:43; Admin Dose 30 GM; Start 10/30/18 at 18:00 SCOTT DOLL NP Nov 01, 2018 11:21
--- NOTE | 2018-11-01 12:40 | PN ---
Date/Time of Note Date/Time of Note DATE: 11/01/18 TIME: 12:35 Assessment/Plan Lines/Catheters IV Catheter Type (from [facility]): Saline Lock Assessment/Plan Chief Complaint/Hosp Course 1. Thickened gallbladder wall with sludge and small stones not 2nd cholecystitis on HIDA (negative). Patient has acute liver failure with cirrhosis and most probably edema of the gallbladder; tolerating diet; on antibiotic therapy however persistent leukocytosis -Medical/GI optimization -Alcohol cessation highly encouraged -No emergent surgical intervention necessary at this time. 2. Acute liver cirrhosis /Hepatitis with transaminitis, hyperbilirubinemia; currently on steroids and lactulose; bilirubin improving. HIDA noted with cholestasis. -Trend labs -Medical/GI optimization -Alcohol cessation highly encouraged 3. Alcohol abuse -As above -monitor closely for withdrawal 4. Acute hyponatremia secondary to volume status: Improved -Judicious fluid management 5. Anemia most likely chronic disease and iron deficiency -Monitor and treat per medical team 6. Elevated lipase questionable pancreatitis -Trend levels 7. BMI 39 -Encourage nutrition optimization -Encourage exercise 8. Hypoalbuminemia, multifactorial -Medical optimization (cirrhosis, nutrition, cessation of alcohol abuse) 9. Leukocytosis ? etiology. HIDA negative for cholecystitis but + cholestasis -w/u per medical team Thank you, Subjective 24 Hr Interval Summary Leukocytosis. HIDA with cholestasis but no cholecystitis. No acute abdominal pain. Multiple bowel movements s/p lactulose. Total bili slowly improving. No fevers, chills, sob, congested cough, cp, palpitations, chiu, dizziness, nausea, vomiting, diarrhea, dysuria. Exam/Review of Systems Vital Signs Vitals Vital Signs Date Temp Pulse Resp B/P (MAP) Pulse Ox O2 O2 Flow FiO2 Time Delivery Rate 11/01/18 97.8 78 20 127/67 94 Room Air 11:48 (87) Intake and Output 10/31/18 10/31/18 11/01/18 1515:00 23:00 07:00 IntakeIntake Total 800 ml 1000 ml OutputOutput Total 1200 ml BalanceBalance 800 ml -200 ml Exam Free Text/Dictation Constitutional: alert, oriented, obese; No distress Psych: anxiety; No confusion Head: normocephalic Eyes: EOMI, PERRL, icteric; No nl conjunctiva ENMT: nl external ears & nose, nl lips & teeth, nl nasal mucosa & septum Neck: supple, non-tender Respiratory: normal air movement; No congested cough, No labored breathing, No wheezing Cardiovascular: regular rate and rhythm, edema Gastrointestinal: soft, non-tender, distended; negative Richards's by palpation No rebound or guarding Genitourinary - Male: nl penis, nl scrotum Musculoskeletal: nl extremities to inspection; No joint tenderness Extremities: edema; No calf tenderness 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: nl mental status, nl speech, nl strength Skin: nl turgor, ecchymosis; No diaphoresis Lymph: nl lymph nodes Results Free Text/Dictation HIDA: Hepatic uptake of activity is slow indicating cholestasis. Blood pool activity persists far longer than normal. Biliary ductal activity is never adequate for definition of the ductal system. Week gallbladder activity is detected at 35 minutes. Moderate gallbladder activity is achieved by 60 minutes Week small bowel activity is identified at 25 minutes, gradually increasing over time. On the 4-hour images, the gallbladder is contracted and there is a large amount of activity in what is probably right hemicolon or distal small bowel. Hepatic activity is diminished. IMPRESSION: 1. Cholestasis. 2. No evidence of acute cholecystitis or common bile duct obstruction. Result Diagram: 11/01/18 0549 11/01/18 0549 ASHER BATES MD Nov 01, 2018 12:40
--- NOTE | 2018-11-01 16:10 | CONS ---
Assessment/Plan Assessment/Plan Assessment/Plan (Daily) 1. Hyponatremia due to Hypervolemic Hyponatremia in setting of acute liver failure 2. Rule out SIADH 3. Acute hepatic failure 4. Biliary colic vs cholecystitis 5. H/o alcohol abuse Plan: Na improved to 132 , D/c IVF NS - change Na chloride tablet to 1gram PO BID due to being on IV solumedrol Abdominal US iN ED showed The right kidney measures 10.8 cm. There is normal echogenicity of the right kidney. There is no solid right renal mass, hydronephrosis, or calculus. There is a benign 1 cm cyst in the upper to mid right kidney. on lisinopirl to 10mg BID, Spironolactone 50mg po daily also on Solumedrol 40mg IV Daily will follow up Consultation Date/Type/Reason Admit Date/Time Oct 26, 2018 at 17:57 Initial Consult Date 10/27/18 Type of Consult NEPHROLOGY Requesting Provider: PRINCE PENA MD Date/Time of Note DATE: 11/01/18 TIME: 16:10 Exam/Review of Systems Exam Vitals Vital Signs Date Temp Pulse Resp B/P (MAP) Pulse Ox O2 O2 Flow FiO2 Time Delivery Rate 11/01/18 98.2 88 18 119/70 96 Room Air 15:01 (86) Intake and Output 10/31/18 10/31/18 11/01/18 1515:00 23:00 07:00 IntakeIntake Total 800 ml 1000 ml OutputOutput Total 1200 ml BalanceBalance 800 ml -200 ml Results Result Diagram: 11/01/18 0549 11/01/18 0549 Results 24hrs Laboratory Tests Test 11/01/18 05:49 White Blood Count 13.5 H Red Blood Count 2.83 L Hemoglobin 9.7 L Hematocrit 28.3 L Mean Corpuscular Volume 100.0 Mean Corpuscular Hemoglobin 34.3 H Mean Corpuscular Hemoglobin Concent 34.3 Red Cell Distribution Width 19.7 H Platelet Count 148 Mean Platelet Volume 9.6 Immature Granulocytes % 6.600 H Neutrophils % Segmented Neutrophils % (Manual) 57 Band Neutrophils % (Manual) 5 H Lymphocytes % Lymphocytes % (Manual) 23 Monocytes % Monocytes % (Manual) 13 H Eosinophils % Basophils % Basophils % (Manual) 1 Myelocytes % (Manual) 1 H Nucleated Red Blood Cells % 4 H Immature Granulocytes # 0.890 H Neutrophils # Neutrophils # (Manual) 7.8 H Band Neutrophils # 0.6 Lymphocytes (Manual) 3.1 H Lymphocytes # Monocytes # Monocytes # (Manual) 1.7 H Eosinophils # Basophils # Basophils # (Manual) 0.1 H Myelocytes # 0.1 H Nucleated Red Blood Cells # Platelet Estimate NORMAL Polychromasia 2+ Hypochromasia 1+ Poikilocytosis 2+ Anisocytosis 3+ Microcytosis 1+ Macrocytosis 3+ Target Cells 1+ Erythrocyte Sedimentation Rate 20 Sodium Level 132 L Potassium Level 4.1 Chloride Level 99 Carbon Dioxide Level 25 Anion Gap 8 Blood Urea Nitrogen 16 Creatinine 0.64 Est Glomerular Filtrat Rate mL/min > 60 Glucose Level 127 Calcium Level 9.4 Magnesium Level 2.2 Total Bilirubin 16.2 H Direct Bilirubin 12.20 H Indirect Bilirubin 4.0 H Aspartate Amino Transf (AST/SGOT) 203 H Alanine Aminotransferase (ALT/SGPT) 134 H Alkaline Phosphatase 255 H Total Protein 7.4 Albumin 3.0 L Globulin 4.40 H Albumin/Globulin Ratio 0.68 Amylase Level 117 Lipase 429 H Medications Medication Current Medications Paroxetine HCl (Paxil) 30 mg HS PO Last administered on 10/31/18at 20:12; Admin Dose 30 MG; Start 10/26/18 at 21:00 Spironolactone (Aldactone) 50 mg DAILY PO Last administered on 11/01/18 08:19; Admin Dose 50 MG; Start 10/27/18 at 09:00 Folic Acid (Folic Acid) 1 mg DAILY PO Last administered on 11/01/18 08:19; Admin Dose 1 MG; Start 10/27/18 at 09:00 Thiamine HCl (Vitamin B1) 100 mg DAILY PO Last administered on 11/01/18 08:19; Admin Dose 100 MG; Start 10/27/18 at 09:00; Stop 11/10/18 at 08:59 Multivitamins Therapeutic (Theragran) 1 tab DAILY PO Last administered on 11/01/18 08:19; Admin Dose 1 TAB; Start 10/27/18 at 09:00 Lorazepam (Ativan) 1 mg Q4H PRN IV withdrawal, seizures Last administered on 10/29/18 08:50; Admin Dose 1 MG; Start 10/26/18 at 19:30 IV Flush (NS 3 ml) 3 ml PER PROTOCOL IV ; Start 10/26/18 at 19:30 Ondansetron HCl (Zofran Inj) 4 mg Q6H PRN IV NAUSEA/VOMITING; Start 10/26/18 at 19:30 Docusate Sodium (Colace) 100 mg Q12H PRN PO .CONSTIPATION; Start 10/26/18 at 19:30 Magnesium Hydroxide (Milk Of Mag) 30 ml DAILY PRN PO .CONSTIPATION; Start 10/26/18 at 19:30 Lisinopril (Zestril) 10 mg BID PO Last administered on 11/01/18 08:23; Admin Dose 10 MG; Start 10/27/18 at 09:00 Sodium Chloride (Nacl) 1 gm TID PO Last administered on 11/01/18 12:22; Admin Dose 1 GM; Start 10/27/18 at 13:00 Methylprednisolone Sodium Succinate (Solu-Medrol) 40 mg DAILY IV Last administered on 11/01/18 08:19; Admin Dose 40 MG; Start 10/27/18 at 14:30 Rifaximin (Xifaxan) 550 mg BID PO Last administered on 11/01/18 08:19; Admin Dose 550 MG; Start 10/28/18 at 21:00 Lactulose (Enulose) 30 gm Q6 PO Last administered on 11/01/18 11:31; Admin Dose 30 GM; Start 10/30/18 at 18:00 BUCK CARO MD Nov 01, 2018 16:10
--- NOTE | 2018-11-01 17:12 | PN ---
Date/Time of Note Date/Time of Note DATE: 11/01/18 TIME: 17:11 Assessment/Plan VTE Prophylaxis Risk score (from Ns)>0 risk: 2 SCD applied (from Ns): Yes Pharmacological prophylaxis: other (scds) Lines/Catheters [facility] Saline Lock Assessment/Plan Hospital Course Assessment/Plan Assessment: Alcoholic hepatitis function of 58.4 Hepatomegaly and fatty liver 2/2 to ETOH abuse Elevated LFTs - trending down Direct hyperbilirubinemia- improving- likely 2/2 to hepatocellular disease -Rule out obstruction versus hepatocellular disease. -MRCP- No evidence of biliary dilatation. -HIDA scan- No evidence of acute cholecystitis or common bile duct obstruction. Hepatitis C AB- reactive- RNA Negative Normocytic anemia Thrombocytopenia Coagulopathy EtOH abuse Obesity Hyponatremia Plan: Continue Lactulose/Rifaximin MRCP -negative Solu-Medrol 40 mg daily for a total of 28 days Continue supportive care Patient seen in collaboration with Dr. Nuñez/Enedina Subjective: Course reviewed with nursing staff Patient interviewed and examined All labs, imaging and other results reviewed Pt much more alert today, no c/o abd pain nausea/vomiting Encourage PO intake and ambulation as tolerated with assist PHYSICAL EXAMINATION: GENERAL: Awake, alert, obese, jaundice SKIN: Abrasion to right eyebrow, multiple bruises on body EYES: Pupils equal reactive to light, icteric sclera, no discharge. EARS/NOSE AND THROAT: Ears normal, nose normal, oropharynx normal NECK: Supple, no masses CHEST: Inspection within normal limits. CARDIOVASCULAR: Heart: Regular rate and rhythm RESPIRATORY: Lungs clear to auscultation GASTROINTESTINAL AND LIVER: Abdomen: Soft, non tenderness, distended, no hernia s, no guarding, no rebound tenderness, normoactive bowel sounds. Rectal: Deferred. EXTREMITIES: No edema Result Diagram: 11/01/18 0549 11/01/18 0549 Results 24hrs Laboratory Tests Test 11/01/18 05:49 White Blood Count 13.5 H Red Blood Count 2.83 L Hemoglobin 9.7 L Hematocrit 28.3 L Mean Corpuscular Volume 100.0 Mean Corpuscular Hemoglobin 34.3 H Mean Corpuscular Hemoglobin Concent 34.3 Red Cell Distribution Width 19.7 H Platelet Count 148 Mean Platelet Volume 9.6 Immature Granulocytes % 6.600 H Neutrophils % Segmented Neutrophils % (Manual) 57 Band Neutrophils % (Manual) 5 H Lymphocytes % Lymphocytes % (Manual) 23 Monocytes % Monocytes % (Manual) 13 H Eosinophils % Basophils % Basophils % (Manual) 1 Myelocytes % (Manual) 1 H Nucleated Red Blood Cells % 4 H Immature Granulocytes # 0.890 H Neutrophils # Neutrophils # (Manual) 7.8 H Band Neutrophils # 0.6 Lymphocytes (Manual) 3.1 H Lymphocytes # Monocytes # Monocytes # (Manual) 1.7 H Eosinophils # Basophils # Basophils # (Manual) 0.1 H Myelocytes # 0.1 H Nucleated Red Blood Cells # Platelet Estimate NORMAL Polychromasia 2+ Hypochromasia 1+ Poikilocytosis 2+ Anisocytosis 3+ Microcytosis 1+ Macrocytosis 3+ Target Cells 1+ Erythrocyte Sedimentation Rate 20 Sodium Level 132 L Potassium Level 4.1 Chloride Level 99 Carbon Dioxide Level 25 Anion Gap 8 Blood Urea Nitrogen 16 Creatinine 0.64 Est Glomerular Filtrat Rate mL/min > 60 Glucose Level 127 Calcium Level 9.4 Magnesium Level 2.2 Total Bilirubin 16.2 H Direct Bilirubin 12.20 H Indirect Bilirubin 4.0 H Aspartate Amino Transf (AST/SGOT) 203 H Alanine Aminotransferase (ALT/SGPT) 134 H Alkaline Phosphatase 255 H Total Protein 7.4 Albumin 3.0 L Globulin 4.40 H Albumin/Globulin Ratio 0.68 Amylase Level 117 Lipase 429 H Exam/Review of Systems Exam Vitals Vital Signs Date Temp Pulse Resp B/P (MAP) Pulse Ox O2 O2 Flow FiO2 Time Delivery Rate 11/01/18 94 17:01 11/01/18 98.2 18 119/70 96 Room Air 15:01 (86) Intake and Output 10/31/18 10/31/18 11/01/18 1515:00 23:00 07:00 IntakeIntake Total 800 ml 1000 ml OutputOutput Total 1200 ml BalanceBalance 800 ml -200 ml Results Results 24hrs Laboratory Tests Test 11/01/18 05:49 White Blood Count 13.5 H Red Blood Count 2.83 L Hemoglobin 9.7 L Hematocrit 28.3 L Mean Corpuscular Volume 100.0 Mean Corpuscular Hemoglobin 34.3 H Mean Corpuscular Hemoglobin Concent 34.3 Red Cell Distribution Width 19.7 H Platelet Count 148 Mean Platelet Volume 9.6 Immature Granulocytes % 6.600 H Neutrophils % Segmented Neutrophils % (Manual) 57 Band Neutrophils % (Manual) 5 H Lymphocytes % Lymphocytes % (Manual) 23 Monocytes % Monocytes % (Manual) 13 H Eosinophils % Basophils % Basophils % (Manual) 1 Myelocytes % (Manual) 1 H Nucleated Red Blood Cells % 4 H Immature Granulocytes # 0.890 H Neutrophils # Neutrophils # (Manual) 7.8 H Band Neutrophils # 0.6 Lymphocytes (Manual) 3.1 H Lymphocytes # Monocytes # Monocytes # (Manual) 1.7 H Eosinophils # Basophils # Basophils # (Manual) 0.1 H Myelocytes # 0.1 H Nucleated Red Blood Cells # Platelet Estimate NORMAL Polychromasia 2+ Hypochromasia 1+ Poikilocytosis 2+ Anisocytosis 3+ Microcytosis 1+ Macrocytosis 3+ Target Cells 1+ Erythrocyte Sedimentation Rate 20 Sodium Level 132 L Potassium Level 4.1 Chloride Level 99 Carbon Dioxide Level 25 Anion Gap 8 Blood Urea Nitrogen 16 Creatinine 0.64 Est Glomerular Filtrat Rate mL/min > 60 Glucose Level 127 Calcium Level 9.4 Magnesium Level 2.2 Total Bilirubin 16.2 H Direct Bilirubin 12.20 H Indirect Bilirubin 4.0 H Aspartate Amino Transf (AST/SGOT) 203 H Alanine Aminotransferase (ALT/SGPT) 134 H Alkaline Phosphatase 255 H Total Protein 7.4 Albumin 3.0 L Globulin 4.40 H Albumin/Globulin Ratio 0.68 Amylase Level 117 Lipase 429 H Medications Medication Current Medications Paroxetine HCl (Paxil) 30 mg HS PO Last administered on 10/31/18at 20:12; Admin Dose 30 MG; Start 10/26/18 at 21:00 Spironolactone (Aldactone) 50 mg DAILY PO Last administered on 11/01/18 08:19; Admin Dose 50 MG; Start 10/27/18 at 09:00 Folic Acid (Folic Acid) 1 mg DAILY PO Last administered on 11/01/18 08:19; Admin Dose 1 MG; Start 10/27/18 at 09:00 Thiamine HCl (Vitamin B1) 100 mg DAILY PO Last administered on 11/01/18 08:19; Admin Dose 100 MG; Start 10/27/18 at 09:00; Stop 11/10/18 at 08:59 Multivitamins Therapeutic (Theragran) 1 tab DAILY PO Last administered on 11/01/18 08:19; Admin Dose 1 TAB; Start 10/27/18 at 09:00 Lorazepam (Ativan) 1 mg Q4H PRN IV withdrawal, seizures Last administered on 10/29/18 08:50; Admin Dose 1 MG; Start 10/26/18 at 19:30 IV Flush (NS 3 ml) 3 ml PER PROTOCOL IV ; Start 10/26/18 at 19:30 Ondansetron HCl (Zofran Inj) 4 mg Q6H PRN IV NAUSEA/VOMITING; Start 10/26/18 at 19:30 Docusate Sodium (Colace) 100 mg Q12H PRN PO .CONSTIPATION; Start 10/26/18 at 1 9:30 Magnesium Hydroxide (Milk Of Mag) 30 ml DAILY PRN PO .CONSTIPATION; Start 10/26/18 at 19:30 Lisinopril (Zestril) 10 mg BID PO Last administered on 11/01/18 08:23; Admin Dose 10 MG; Start 10/27/18 at 09:00 Sodium Chloride (Nacl) 1 gm TID PO Last administered on 11/01/18 12:22; Admin Dose 1 GM; Start 10/27/18 at 13:00 Methylprednisolone Sodium Succinate (Solu-Medrol) 40 mg DAILY IV Last admini stered on 11/01/18 08:19; Admin Dose 40 MG; Start 10/27/18 at 14:30 Rifaximin (Xifaxan) 550 mg BID PO Last administered on 11/01/18 08:19; Admin Dose 550 MG; Start 10/28/18 at 21:00 Lactulose (Enulose) 30 gm Q6 PO Last administered on 11/01/18 11:31; Admin Dose 30 GM; Start 10/30/18 at 18:00 LUDWIG LOPEZ Nov 01, 2018 17:12
[2018-11-01] MEDS: PAROXETINE 10 MG TAB PO SCH (21:23)
[2018-11-02] VITALS (10 sets, daily range): BP systolic 98–128; BP diastolic 52–67; PULSE 70–100; RESP 18–20
[2018-11-02] MEDS: LACTULOSE 30ML CUP PO SCH ×4 (06:00→17:07)
[2018-11-02] MEDS: LISINOPRIL 10 MG TAB PO SCH ×2 (09:00→20:23)
[2018-11-02] MEDS: SODIUM CHLORIDE 1 GM TAB PO SCH ×2 (09:13→20:21)
[2018-11-02] MEDS: SPIRONOLACTONE 25 MG TAB PO SCH (09:13)
[2018-11-02] MEDS: THIAMINE 100 MG TAB PO SCH (09:13)
[2018-11-02] MEDS: RIFAXIMIN 550 MG TAB PO SCH ×2 (09:13→20:22)
[2018-11-02] MEDS: MULTIVITAMINS THERAPEUTIC TAB PO SCH (09:14)
[2018-11-02] MEDS: FOLIC ACID 1 MG TAB PO SCH (09:14)
[2018-11-02] MEDS: METHYLPREDNISOLONE 40 MG INJ IV SCH (09:20)
--- NOTE | 2018-11-02 10:16 | CONS ---
Assessment/Plan Assessment/Plan Assessment/Plan (Daily) 1. Hyponatremia due to Hypervolemic Hyponatremia in setting of acute liver failure 2. Rule out SIADH 3. Acute hepatic failure 4. Biliary colic vs cholecystitis 5. H/o alcohol abuse Plan: Na improved to 131 , continue Na chloride tablet 1gram PO BID Abdominal US iN ED showed The right kidney measures 10.8 cm. There is normal echogenicity of the right kidney. There is no solid right renal mass, hydronephrosis, or calculus. There is a benign 1 cm cyst in the upper to mid right kidney. on lisinopirl to 10mg BID, Spironolactone 50mg po daily also on Solumedrol 40mg IV Daily will follo Consultation Date/Type/Reason Admit Date/Time Oct 26, 2018 at 17:57 Initial Consult Date 10/27/18 Type of Consult NEPHROLOGY Requesting Provider: PRINCE PENA MD Date/Time of Note DATE: 11/02/18 TIME: 10:16 Exam/Review of Systems Exam Vitals Vital Signs Date Temp Pulse Resp B/P (MAP) Pulse Ox O2 O2 Flow FiO2 Time Delivery Rate 11/02/18 82 08:00 11/02/18 98.2 20 98/56 (70) 94 Room Air 07:47 Intake and Output 11/01/18 11/01/18 11/02/18 1515:00 23:00 07:00 IntakeIntake Total 780 ml BalanceBalance 780 ml Exam GEN: no acute distress, + jaundice HEENT: KAYLYN, EOMI, + Jaundice Neck: Supple with full range of motion. No rigidity or meningismus Chest: Nontender Lungs: Clear to auscultation bilaterally no crackles rales or wheezing Heart: Normal S1-S2, Regular rhythm and rate. No murmur, S3, or S4 Abdomen: Soft , diffusely tender to palpation, distended, bowel sounds are present. Extremities: Normal to inspection, no edema no cyanosis, skin yellow Results Result Diagram: 11/02/18 0534 11/02/18 0534 Results 24hrs Laboratory Tests Test 11/02/18 05:34 White Blood Count 14.3 H Red Blood Count 2.86 L Hemoglobin 10.1 L Hematocrit 29.4 L Mean Corpuscular Volume 102.8 H Mean Corpuscular Hemoglobin 35.3 H Mean Corpuscular Hemoglobin Concent 34.4 Red Cell Distribution Width 20.0 H Platelet Count 142 Mean Platelet Volume 9.6 Immature Granulocytes % 8.100 H Neutrophils % Lymphocytes % Monocytes % Eosinophils % Basophils % Nucleated Red Blood Cells % 0.5 H Immature Granulocytes # 1.160 H Neutrophils # Lymphocytes # Monocytes # Eosinophils # Basophils # Nucleated Red Blood Cells # Sodium Level 131 L Potassium Level 4.5 Chloride Level 97 Carbon Dioxide Level 25 Anion Gap 9 Blood Urea Nitrogen 20 Creatinine 0.66 Est Glomerular Filtrat Rate mL/min > 60 Glucose Level 78 # Hemoglobin A1c 4.5 Calcium Level 9.4 Total Bilirubin 15.9 H Direct Bilirubin 11.70 H Indirect Bilirubin 4.2 H Aspartate Amino Transf (AST/SGOT) 210 H Alanine Aminotransferase (ALT/SGPT) 143 H Alkaline Phosphatase 243 H Total Protein 7.4 Albumin 2.9 L Globulin 4.50 H Albumin/Globulin Ratio 0.64 Triglycerides Level 127 Cholesterol Level 108 LDL Cholesterol, Calculated 71 HDL Cholesterol 12 L Cholesterol/HDL Ratio 9.0 Medications Medication Current Medications Paroxetine HCl (Paxil) 30 mg HS PO Last administered on 11/01/18 21:23; Admin Dose 30 MG; Start 10/26/18 at 21:00 Spironolactone (Aldactone) 50 mg DAILY PO Last administered on 11/02/18 09:13; Admin Dose 50 MG; Start 10/27/18 at 09:00 Folic Acid (Folic Acid) 1 mg DAILY PO Last administered on 11/02/18 09:14; Admin Dose 1 MG; Start 10/27/18 at 09:00 Thiamine HCl (Vitamin B1) 100 mg DAILY PO Last administered on 11/02/18 09:13; Admin Dose 100 MG; Start 10/27/18 at 09:00; Stop 11/10/18 at 08:59 Multivitamins Therapeutic (Theragran) 1 tab DAILY PO Last administered on 11/02/18 09:14; Admin Dose 1 TAB; Start 10/27/18 at 09:00 Lorazepam (Ativan) 1 mg Q4H PRN IV withdrawal, seizures Last administered on 10/29/18 08:50; Admin Dose 1 MG; Start 10/26/18 at 19:30 IV Flush (NS 3 ml) 3 ml PER PROTOCOL IV ; Start 10/26/18 at 19:30 Ondansetron HCl (Zofran Inj) 4 mg Q6H PRN IV NAUSEA/VOMITING; Start 10/26/18 at 19:30 Docusate Sodium (Colace) 100 mg Q12H PRN PO .CONSTIPATION; Start 10/26/18 at 19:30 Magnesium Hydroxide (Milk Of Mag) 30 ml DAILY PRN PO .CONSTIPATION; Start 10/26/18 at 19:30 Lisinopril (Zestril) 10 mg BID PO Last administered on 11/01/18at 21:22; Admin Dose 10 MG; Start 10/27/18 at 09:00 Methylprednisolone Sodium Succinate (Solu-Medrol) 40 mg DAILY IV Last administered on 11/02/18 09:20; Admin Dose 40 MG; Start 10/27/18 at 14:30 Rifaximin (Xifaxan) 550 mg BID PO Last administered on 11/02/18at 09:13; Admin Dose 550 MG; Start 10/28/18 at 21:00 Lactulose (Enulose) 30 gm Q6 PO Last administered on 11/01/18at 17:37; Admin Dose 30 GM; Start 10/30/18 at 18:00 Sodium Chloride (Nacl) 1 gm BID PO Last administered on 11/02/18 09:13; Admin Dose 1 GM; Start 11/02/18 at 09:00 BUCK CARO MD Nov 02, 2018 10:16
--- NOTE | 2018-11-02 10:37 | PN ---
Date/Time of Note Date/Time of Note DATE: 11/02/18 TIME: 10:35 Assessment/Plan Lines/Catheters IV [facility] (from [facility]): Saline Lock Assessment/Plan Chief Complaint/Hosp Course 1. Thickened gallbladder wall with sludge and small stones not 2nd cholecystitis on HIDA (negative). Patient has acute liver failure with cirrhosis and most probably edema of the gallbladder; tolerating diet; on antibiotic therapy however persistent leukocytosis -Medical/GI optimization -Alcohol cessation highly encouraged -No emergent surgical intervention necessary at this time. 2. Acute liver cirrhosis /Hepatitis with transaminitis, hyperbilirubinemia; currently on steroids and lactulose; bilirubin improving. HIDA noted with cholestasis. -Trend labs -Medical/GI optimization -Alcohol cessation highly encouraged 3. Alcohol abuse -As above -monitor closely for withdrawal 4. Acute hyponatremia secondary to volume status: Improved -Judicious fluid management 5. Anemia most likely chronic disease and iron deficiency -Monitor and treat per medical team 6. Elevated lipase questionable pancreatitis -Trend levels 7. BMI 39 -Encourage nutrition optimization -Encourage exercise 8. Hypoalbuminemia, multifactorial -Medical optimization (cirrhosis, nutrition, cessation of alcohol abuse) 9. Leukocytosis ? etiology. HIDA negative for cholecystitis but + cholestasis -w/u per medical/GI team Thank you. Patient seen and examined in collaboration with Dr. Yuan Fleming. Subjective 24 Hr Interval Summary No fevers, chills, sob, congested cough, cp, palpitations, chiu, dizziness, n/v/d/dysuria. No abdominal pain. Tolerating diet. Exam/Review of Systems Vital Signs Vitals Vital Signs Date Temp Pulse Resp B/P (MAP) Pulse Ox O2 O2 Flow FiO2 Time Delivery Rate 11/02/18 82 08:00 11/02/18 98.2 20 98/56 (70) 94 Room Air 07:47 Intake and Output 11/01/18 11/01/18 11/02/18 1515:00 23:00 07:00 IntakeIntake Total 780 ml BalanceBalance 780 ml Exam Free Text/Dictation Constitutional: alert, oriented, obese; No distress Psych: anxiety; No confusion Head: normocephalic Eyes: EOMI, PERRL, icteric; No nl conjunctiva ENMT: nl external ears & nose, nl lips & teeth, nl nasal mucosa & septum Neck: supple, non-tender Respiratory: normal air movement; No congested cough, No labored breathing, No wheezing Cardiovascular: regular rate and rhythm, edema Gastrointestinal: soft, non-tender, distended; negative Richards's by palpation No rebound or guarding Genitourinary - Male: nl penis, nl scrotum Musculoskeletal: nl extremities to inspection; No joint tenderness Extremities: edema; No calf tenderness 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: nl mental status, nl speech, nl strength Skin: nl turgor, ecchymosis; No diaphoresis Lymph: nl lymph nodes Results Result Diagram: 11/02/18 0534 11/02/18 0534 ANALI BERUMEN NP Nov 02, 2018 10:37
--- NOTE | 2018-11-02 11:53 | PN ---
Date/Time of Note Date/Time of Note DATE: 11/02/18 TIME: 11:50 Assessment/Plan VTE Prophylaxis Risk score (from Ns)>0 risk: 2 SCD applied (from Ns): Yes Pharmacological prophylaxis: NA/contraindicated Pharm contraindication: low risk/ambulating, liver dx Lines/Catheters IV Catheter Type (from [facility]): Saline Lock Assessment/Plan Hospital Course SUBJECTIVE: Today patient is more awake. He is not in any distress. OBJECTIVE: Vital signs-see below PHYSICAL EXAM: Constitutional: Jaundiced male, sedated, arousable to voice. HEENT: Head atraumatic and normocephalic. Eyes: Extraocular muscles intact.Icteric sclerae. Pupils equal bilaterally, reactive to light. NECK: Supple without lymph node. CHEST: Clear and good breath sounds equally. No wheezing. No rhonchi. HEART: S1, S2. Regular rate and rhythm. ABDOMEN: Soft, nontender. Bowel sounds were present. EXTREMITIES: Full range of motion in all the extremities. No cyanosis, clubbing or edema. NEUROLOGIC: Alert and oriented x3. No focal deficit. No sensory deficit. PSYCHOSOCIAL: In a good mood. No signs of depression. INTEGUMENTARY: Jaundiced+ ASSESSMENT AND PLAN: 53-year-old male with alcoholic liver cirrhosis, hypertension, treated with 1 month of worsening jaundice, abdominal pain with nausea/vomiting found to have worsening liver fxn.. 1.Decompensated Alcoholic Liver Cirrhosis -Clinically improved. -cessation advised -f/u GI recs -cont.medical mgmt/supportive care 2. Alcohol abuse,active -At this time there is no further concern for alcohol withdrawal or delirium tremens. -sw f/u 3.Hypertension -Adequate control -on ACEi 4.Hyponatremia 2/2 alcoholism/liver disease -stable and improving -limit free water 5.Transaminase elevation w/hyperbilirubinemia 2/2 #2 -monitor -asymptomatic 6.Obesity -life style changes advised -obtain A1C/Lipid panel prophylaxis:scds/ppi diet: regular code:hubert disp:cont.current management. Anticipate DC planning in 24 hrs once cleared from GI and SW to d/w inpt alcohol rehab program if pt interested. PT notes reviewed and will order front wheel walker. patient was seen in collaboration with Result Diagram: 4/9/19 0534 4/9/19 0534 Results 24hrs Laboratory Tests Test 11/02/18 05:34 White Blood Count 14.3 H Red Blood Count 2.86 L Hemoglobin 10.1 L Hematocrit 29.4 L Mean Corpuscular Volume 102.8 H Mean Corpuscular Hemoglobin 35.3 H Mean Corpuscular Hemoglobin Concent 34.4 Red Cell Distribution Width 20.0 H Platelet Count 142 Mean Platelet Volume 9.6 Immature Granulocytes % 8.100 H Neutrophils % Segmented Neutrophils % (Manual) 46 Band Neutrophils % (Manual) 9 H Lymphocytes % Lymphocytes % (Manual) 24 Monocytes % Monocytes % (Manual) 15 H Eosinophils % Eosinophils % (Manual) 1 Basophils % Metamyelocytes % (manual) 2 H Myelocytes % (Manual) 2 H Promyelocytes % (Manual) 1 H Nucleated Red Blood Cells % 0.5 H Immature Granulocytes # 1.160 H Neutrophils # Neutrophils # (Manual) 6.7 Band Neutrophils # 1.2 H Lymphocytes (Manual) 3.4 H Lymphocytes # Monocytes # Monocytes # (Manual) 2.1 H Eosinophils # Basophils # Metamyelocytes # 0.2 H Myelocytes # 0.2 H Promyelocytes # 0.1 H Nucleated Red Blood Cells # Platelet Estimate NORMAL Polychromasia 3+ Hypochromasia 1+ Poikilocytosis 3+ Anisocytosis 3+ Macrocytosis 3+ Target Cells 1+ Sodium Level 131 L Potassium Level 4.5 Chloride Level 97 Carbon Dioxide Level 25 Anion Gap 9 Blood Urea Nitrogen 20 Creatinine 0.66 Est Glomerular Filtrat Rate mL/min > 60 Glucose Level 78 # Hemoglobin A1c 4.5 Calcium Level 9.4 Total Bilirubin 15.9 H Direct Bilirubin 11.70 H Indirect Bilirubin 4.2 H Aspartate Amino Transf (AST/SGOT) 210 H Alanine Aminotransferase (ALT/SGPT) 143 H Alkaline Phosphatase 243 H Total Protein 7.4 Albumin 2.9 L Globulin 4.50 H Albumin/Globulin Ratio 0.64 Triglycerides Level 127 Cholesterol Level 108 LDL Cholesterol, Calculated 71 HDL Cholesterol 12 L Cholesterol/HDL Ratio 9.0 Exam/Review of Systems Exam Vitals Vital Signs Date Temp Pulse Resp B/P (MAP) Pulse Ox O2 O2 Flow FiO2 Time Delivery Rate 11/02/18 97.5 80 18 111/60 93 Room Air 11:28 (77) Intake and Output 11/01/18 11/01/18 11/02/18 1515:00 23:00 07:00 IntakeIntake Total 780 ml BalanceBalance 780 ml Results Results 24hrs Laboratory Tests Test 11/02/18 05:34 White Blood Count 14.3 H Red Blood Count 2.86 L Hemoglobin 10.1 L Hematocrit 29.4 L Mean Corpuscular Volume 102.8 H Mean Corpuscular Hemoglobin 35.3 H Mean Corpuscular Hemoglobin Concent 34.4 Red Cell Distribution Width 20.0 H Platelet Count 142 Mean Platelet Volume 9.6 Immature Granulocytes % 8.100 H Neutrophils % Segmented Neutrophils % (Manual) 46 Band Neutrophils % (Manual) 9 H Lymphocytes % Lymphocytes % (Manual) 24 Monocytes % Monocytes % (Manual) 15 H Eosinophils % Eosinophils % (Manual) 1 Basophils % Metamyelocytes % (manual) 2 H Myelocytes % (Manual) 2 H Promyelocytes % (Manual) 1 H Nucleated Red Blood Cells % 0.5 H Immature Granulocytes # 1.160 H Neutrophils # Neutrophils # (Manual) 6.7 Band Neutrophils # 1.2 H Lymphocytes (Manual) 3.4 H Lymphocytes # Monocytes # Monocytes # (Manual) 2.1 H Eosinophils # Basophils # Metamyelocytes # 0.2 H Myelocytes # 0.2 H Promyelocytes # 0.1 H Nucleated Red Blood Cells # Platelet Estimate NORMAL Polychromasia 3+ Hypochromasia 1+ Poikilocytosis 3+ Anisocytosis 3+ Macrocytosis 3+ Target Cells 1+ Sodium Level 131 L Potassium Level 4.5 Chloride Level 97 Carbon Dioxide Level 25 Anion Gap 9 Blood Urea Nitrogen 20 Creatinine 0.66 Est Glomerular Filtrat Rate mL/min > 60 Glucose Level 78 # Hemoglobin A1c 4.5 Calcium Level 9.4 Total Bilirubin 15.9 H Direct Bilirubin 11.70 H Indirect Bilirubin 4.2 H Aspartate Amino Transf (AST/SGOT) 210 H Alanine Aminotransferase (ALT/SGPT) 143 H Alkaline Phosphatase 243 H Total Protein 7.4 Albumin 2.9 L Globulin 4.50 H Albumin/Globulin Ratio 0.64 Triglycerides Level 127 Cholesterol Level 108 LDL Cholesterol, Calculated 71 HDL Cholesterol 12 L Cholesterol/HDL Ratio 9.0 Medications Medication Current Medications Paroxetine HCl (Paxil) 30 mg HS PO Last administered on 11/01/18at 21:23; Admin Dose 30 MG; Start 10/26/18 at 21:00 Spironolactone (Aldactone) 50 mg DAILY PO Last administered on 4/9/19at 09:13; Admin Dose 50 MG; Start 10/27/18 at 09:00 Folic Acid (Folic Acid) 1 mg DAILY PO Last administered on 11/02/18 09:14; Admin Dose 1 MG; Start 10/27/18 at 09:00 Thiamine HCl (Vitamin B1) 100 mg DAILY PO Last administered on 11/02/18 09:13; Admin Dose 100 MG; Start 10/27/18 at 09:00; Stop 11/10/18 at 08:59 Multivitamins Therapeutic (Theragran) 1 tab DAILY PO Last administered on 11/02/18 09:14; Admin Dose 1 TAB; Start 10/27/18 at 09:00 Lorazepam (Ativan) 1 mg Q4H PRN IV withdrawal, seizures Last administered on 10/29/18 08:50; Admin Dose 1 MG; Start 10/26/18 at 19:30 IV Flush (NS 3 ml) 3 ml PER PROTOCOL IV ; Start 10/26/18 at 19:30 Ondansetron HCl (Zofran Inj) 4 mg Q6H PRN IV NAUSEA/VOMITING; Start 10/26/18 at 19:30 Docusate Sodium (Colace) 100 mg Q12H PRN PO .CONSTIPATION; Start 10/26/18 at 19:30 Magnesium Hydroxide (Milk Of Mag) 30 ml DAILY PRN PO .CONSTIPATION; Start 10/26/18 at 19:30 Lisinopril (Zestril) 10 mg BID PO Last administered on 11/01/18 21:22; Admin Dose 10 MG; Start 10/27/18 at 09:00 Methylprednisolone Sodium Succinate (Solu-Medrol) 40 mg DAILY IV Last administered on 11/02/18 09:20; Admin Dose 40 MG; Start 10/27/18 at 14:30 Rifaximin (Xifaxan) 550 mg BID PO Last administered on 11/02/18 09:13; Admin Dose 550 MG; Start 10/28/18 at 21:00 Lactulose (Enulose) 30 gm Q6 PO Last administered on 11/01/18 17:37; Admin Dose 30 GM; Start 10/30/18 at 18:00 Sodium Chloride (Nacl) 1 gm BID PO Last administered on 11/02/18 09:13; Admin Dose 1 GM; Start 11/02/18 at 09:00 SCOTT DOLL NP Nov 02, 2018 11:53
--- NOTE | 2018-11-02 12:13 | PN ---
Date/Time of Note Date/Time of Note DATE: 11/02/18 TIME: 11:49 Assessment/Plan VTE Prophylaxis Risk score (from Ns)>0 risk: 2 SCD applied (from Ns): Yes Pharmacological prophylaxis: other (scds) Lines/Catheters [facility] Saline Lock Assessment/Plan Hospital Course Assessment/Plan Assessment: Alcoholic hepatitis function of 58.4 Hepatomegaly and fatty liver 2/2 to ETOH abuse Elevated LFTs - Direct hyperbilirubinemia- improving- likely 2/2 to hepatocellular disease -Rule out obstruction versus hepatocellular disease. -MRCP- No evidence of biliary dilatation. -HIDA scan- No evidence of acute cholecystitis or common bile duct obstruction. Hepatitis C AB- reactive- RNA Negative Normocytic anemia Thrombocytopenia Coagulopathy- trending down EtOH abuse Obesity Hyponatremia Plan: Continue Lactulose/Rifaximin Solu-Medrol 40 mg daily for a total of 28 days Continue supportive care D/c planning per hospitalist- patient appears stable for out-pt management from [facility]. with d/c will change solu-medrol to prednisone 40 mg for a total of 28 days then stop- rx in chart Pt will need to f/u with GI 1 week after discharge - to continue to monitor liver function Patient seen in collaboration with Dr. Nuñez/Enedina Subjective: Course reviewed with nursing staff Patient interviewed and examined All labs, imaging and other results reviewed Pt awake alert and oriented, no over night events Family at bedside, discussed need to quit drinking Pt verbalized understanding PHYSICAL EXAMINATION: GENERAL: Awake, alert, obese, jaundice SKIN: Abrasion to right eyebrow, multiple bruises on body EYES: Pupils equal reactive to light, icteric sclera, no discharge. EARS/NOSE AND THROAT: Ears normal, nose normal, oropharynx normal NECK: Supple, no masses CHEST: Inspection within normal limits. CARDIOVASCULAR: Heart: Regular rate and rhythm RESPIRATORY: Lungs clear to auscultation GASTROINTESTINAL AND LIVER: Abdomen: Soft, non tenderness, distended, no hernias, no guarding, no rebound tenderness, normoactive bowel sounds. Rectal: Deferred. EXTREMITIES: No edema Result Diagram: 11/02/18 0534 11/02/18 0534 Results 24hrs Laboratory Tests Test 11/02/18 05:34 White Blood Count 14.3 H Red Blood Count 2.86 L Hemoglobin 10.1 L Hematocrit 29.4 L Mean Corpuscular Volume 102.8 H Mean Corpuscular Hemoglobin 35.3 H Mean Corpuscular Hemoglobin Concent 34.4 Red Cell Distribution Width 20.0 H Platelet Count 142 Mean Platelet Volume 9.6 Immature Granulocytes % 8.100 H Neutrophils % Segmented Neutrophils % (Manual) 46 Band Neutrophils % (Manual) 9 H Lymphocytes % Lymphocytes % (Manual) 24 Monocytes % Monocytes % (Manual) 15 H Eosinophils % Eosinophils % (Manual) 1 Basophils % Metamyelocytes % (manual) 2 H Myelocytes % (Manual) 2 H Promyelocytes % (Manual) 1 H Nucleated Red Blood Cells % 0.5 H Immature Granulocytes # 1.160 H Neutrophils # Neutrophils # (Manual) 6.7 Band Neutrophils # 1.2 H Lymphocytes (Manual) 3.4 H Lymphocytes # Monocytes # Monocytes # (Manual) 2.1 H Eosinophils # Basophils # Metamyelocytes # 0.2 H Myelocytes # 0.2 H Promyelocytes # 0.1 H Nucleated Red Blood Cells # Platelet Estimate NORMAL Polychromasia 3+ Hypochromasia 1+ Poikilocytosis 3+ Anisocytosis 3+ Macrocytosis 3+ Target Cells 1+ Sodium Level 131 L Potassium Level 4.5 Chloride Level 97 Carbon Dioxide Level 25 Anion Gap 9 Blood Urea Nitrogen 20 Creatinine 0.66 Est Glomerular Filtrat Rate mL/min > 60 Glucose Level 78 # Hemoglobin A1c 4.5 Calcium Level 9.4 Total Bilirubin 15.9 H Direct Bilirubin 11.70 H Indirect Bilirubin 4.2 H Aspartate Amino Transf (AST/SGOT) 210 H Alanine Aminotransferase (ALT/SGPT) 143 H Alkaline Phosphatase 243 H Total Protein 7.4 Albumin 2.9 L Globulin 4.50 H Albumin/Globulin Ratio 0.64 Triglycerides Level 127 Cholesterol Level 108 LDL Cholesterol, Calculated 71 HDL Cholesterol 12 L Cholesterol/HDL Ratio 9.0 Exam/Review of Systems Exam Vitals Vital Signs Date Temp Pulse Resp B/P (MAP) Pulse Ox O2 O2 Flow FiO2 Time Delivery Rate 11/02/18 97.5 80 18 111/60 93 Room Air 11:28 (77) Intake and Output 11/01/18 11/01/18 11/02/18 1515:00 23:00 07:00 IntakeIntake Total 780 ml BalanceBalance 780 ml Results Results 24hrs Laboratory Tests Test 11/02/18 05:34 White Blood Count 14.3 H Red Blood Count 2.86 L Hemoglobin 10.1 L Hematocrit 29.4 L Mean Corpuscular Volume 102.8 H Mean Corpuscular Hemoglobin 35.3 H Mean Corpuscular Hemoglobin Concent 34.4 Red Cell Distribution Width 20.0 H Platelet Count 142 Mean Platelet Volume 9.6 Immature Granulocytes % 8.100 H Neutrophils % Segmented Neutrophils % (Manual) 46 Band Neutrophils % (Manual) 9 H Lymphocytes % Lymphocytes % (Manual) 24 Monocytes % Monocytes % (Manual) 15 H Eosinophils % Eosinophils % (Manual) 1 Basophils % Metamyelocytes % (manual) 2 H Myelocytes % (Manual) 2 H Promyelocytes % (Manual) 1 H Nucleated Red Blood Cells % 0.5 H Immature Granulocytes # 1.160 H Neutrophils # Neutrophils # (Manual) 6.7 Band Neutrophils # 1.2 H Lymphocytes (Manual) 3.4 H Lymphocytes # Monocytes # Monocytes # (Manual) 2.1 H Eosinophils # Basophils # Metamyelocytes # 0.2 H Myelocytes # 0.2 H Promyelocytes # 0.1 H Nucleated Red Blood Cells # Platelet Estimate NORMAL Polychromasia 3+ Hypochromasia 1+ Poikilocytosis 3+ Anisocytosis 3+ Macrocytosis 3+ Target Cells 1+ Sodium Level 131 L Potassium Level 4.5 Chloride Level 97 Carbon Dioxide Level 25 Anion Gap 9 Blood Urea Nitrogen 20 Creatinine 0.66 Est Glomerular Filtrat Rate mL/min > 60 Glucose Level 78 # Hemoglobin A1c 4.5 Calcium Level 9.4 Total Bilirubin 15.9 H Direct Bilirubin 11.70 H Indirect Bilirubin 4.2 H Aspartate Amino Transf (AST/SGOT) 210 H Alanine Aminotransferase (ALT/SGPT) 143 H Alkaline Phosphatase 243 H Total Protein 7.4 Albumin 2.9 L Globulin 4.50 H Albumin/Globulin Ratio 0.64 Triglycerides Level 127 Cholesterol Level 108 LDL Cholesterol, Calculated 71 HDL Cholesterol 12 L Cholesterol/HDL Ratio 9.0 Medications Medication Current Medications Paroxetine HCl (Paxil) 30 mg HS PO Last administered on 11/01/18at 21:23; Admin Dose 30 MG; Start 10/26/18 at 21:00 Spironolactone (Aldactone) 50 mg DAILY PO Last administered on 11/02/18at 09:13; Admin Dose 50 MG; Start 10/27/18 at 09:00 Folic Acid (Folic Acid) 1 mg DAILY PO Last administered on 11/02/18 09:14; Admin Dose 1 MG; Start 10/27/18 at 09:00 Thiamine HCl (Vitamin B1) 100 mg DAILY PO Last administered on 11/02/18 09:13; Admin Dose 100 MG; Start 10/27/18 at 09:00; Stop 11/10/18 at 08:59 Multivitamins Therapeutic (Theragran) 1 tab DAILY PO Last administered on 11/02/18 09:14; Admin Dose 1 TAB; Start 10/27/18 at 09:00 Lorazepam (Ativan) 1 mg Q4H PRN IV withdrawal, seizures Last administered on 10/29/18 08:50; Admin Dose 1 MG; Start 10/26/18 at 19:30 IV Flush (NS 3 ml) 3 ml PER PROTOCOL IV ; Start 10/26/18 at 19:30 Ondansetron HCl (Zofran Inj) 4 mg Q6H PRN IV NAUSEA/VOMITING; Start 10/26/18 at 19:30 Docusate Sodium (Colace) 100 mg Q12H PRN PO .CONSTIPATION; Start 10/26/18 at 1 9:30 Magnesium Hydroxide (Milk Of Mag) 30 ml DAILY PRN PO .CONSTIPATION; Start 10/26/18 at 19:30 Lisinopril (Zestril) 10 mg BID PO Last administered on 11/01/18 21:22; Admin Dose 10 MG; Start 10/27/18 at 09:00 Methylprednisolone Sodium Succinate (Solu-Medrol) 40 mg DAILY IV Last administered on 11/02/18 09:20; Admin Dose 40 MG; Start 10/27/18 at 14:30 Rifaximin (Xifaxan) 550 mg BID PO Last administered on 11/02/18 09:13; Admin Dose 550 MG; Start 10/28/18 at 21:00 Lactulose (Enulose) 30 gm Q6 PO Last administered on 11/01/18 17:37; Admin Dose 30 GM; Start 10/30/18 at 18:00 Sodium Chloride (Nacl) 1 gm BID PO Last administered on 11/02/18 09:13; Admin Dose 1 GM; Start 11/02/18 at 09:00 LUDWIG LOPEZ Nov 02, 2018 12:11
[2018-11-02] MEDS: PAROXETINE 10 MG TAB PO SCH (20:22)
[2018-11-03] VITALS: BP 120/62; PULSE 79; PULSE 80; RESP 19
[2018-11-03] MEDS: LACTULOSE 30ML CUP PO SCH ×3 (00:15→12:00)
[2018-11-03 04:00] VITALS: BP 107/58; PULSE 79; PULSE 80; RESP 19
[2018-11-03 07:15] VITALS: BP 110/58; PULSE 83; RESP 18
[2018-11-03 08:07] VITALS: PULSE 93
[2018-11-03] MEDS: FOLIC ACID 1 MG TAB PO SCH (08:46)
[2018-11-03] MEDS: RIFAXIMIN 550 MG TAB PO SCH (08:46)
[2018-11-03] MEDS: LISINOPRIL 10 MG TAB PO SCH (08:46)
[2018-11-03] MEDS: THIAMINE 100 MG TAB PO SCH (08:46)
[2018-11-03] MEDS: SPIRONOLACTONE 25 MG TAB PO SCH (08:46)
[2018-11-03] MEDS: MULTIVITAMINS THERAPEUTIC TAB PO SCH (08:46)
[2018-11-03] MEDS: METHYLPREDNISOLONE 40 MG INJ IV SCH (08:46)
[2018-11-03] MEDS: SODIUM CHLORIDE 1 GM TAB PO SCH (08:46)
--- NOTE | 2018-11-03 09:10 | PDOCDIS ---
Discharge Instructions CONDITION [id number] Patient Condition: [id number] Stable HOME CARE INSTRUCTIONS: [id number] Diet Instructions: [id number] Reduced Calorie FOLLOW UP/APPOINTMENTS Follow-up Plan Follow-up with primary care physician in 1 week. You also need patient gastroenterology follow-up for which your primary care physician can refer you. You need to stop drinking alcohol to be evaluated for any further treatment option for alcoholic liver disease available. Follow-up with hack saw operator in 2 weeks [id number] [facility] [place] [address] Office To have low sodium in your blood and you instructed to take sodium chloride tablet twice a day for next 2 weeks and you need to recheck your sodium level. You can follow-up with bean snipper Dr. Baumann in couple weeks who can order the blood test. Terry Baumann M.D., [facility] [id number] [facility] [address] [place] [address] Office SCOTT DOLL NP Nov 03, 2018 09:10
[2018-11-03] MEDS ORDERED: LACT20SO2 PO (09:17)
[2018-11-03] MEDS ORDERED: LISI10TA2 PO (09:17)
[2018-11-03] MEDS ORDERED: SPIR25TA PO (09:17)
[2018-11-03] MEDS ORDERED: [UNRECOGNIZED DRUG - CODE] PO ×2 (09:17→09:41)
[2018-11-03] MEDS ORDERED: PRED20TA PO (09:17)
[2018-11-03] MEDS ORDERED: PANT40TA3 PO (09:17)
[2018-11-03] MEDS ORDERED: THIA100T56 PO (09:17)
--- NOTE | 2018-11-03 09:56 | CONS ---
Assessment/Plan Assessment/Plan Assessment/Plan (Daily) 1. Hyponatremia due to Hypervolemic Hyponatremia in setting of acute liver failure 2. Rule out SIADH 3. Acute hepatic failure 4. Biliary colic vs cholecystitis 5. H/o alcohol abuse Plan: Na improved to 131, Na chloride tablet 1 gram PO BID x 2 week on discharge, follow up with me in clinic in 1 week Abdominal US iN ED showed The right kidney measures 10.8 cm. There is normal echogenicity of the right kidney. There is no solid right renal mass, hydronephrosis, or calculus. There is a benign 1 cm cyst in the upper to mid right kidney. on lisinopirl to 10mg BID, Spironolactone 50mg po daily will follow up Consultation Date/Type/Reason Admit Date/Time Oct 26, 2018 at 17:57 Initial Consult Date 10/27/18 Type of Consult NEPHROLOGY Requesting Provider: PRINCE PENA MD Date/Time of Note DATE: 11/03/18 TIME: 09:56 Exam/Review of Systems Exam Vitals Vital Signs Date Temp Pulse Resp B/P (MAP) Pulse Ox O2 O2 Flow FiO2 Time Delivery Rate 11/03/18 93 08:07 11/03/18 98.7 18 110/58 98 Room Air 07:15 (75) Intake and Output 11/02/18 11/02/18 11/03/18 1414:59 22:59 06:59 IntakeIntake Total 860 ml 250 ml OutputOutput Total 350 ml BalanceBalance 860 ml -100 ml Results Result Diagram: 11/02/18 0534 11/02/18 0534 Medications Medication Current Medications Paroxetine HCl (Paxil) 30 mg HS PO Last administered on 11/02/18at 20:22; Admin Dose 30 MG; Start 10/26/18 at 21:00 Spironolactone (Aldactone) 50 mg DAILY PO Last administered on 11/03/18at 08:46; Admin Dose 50 MG; Start 10/27/18 at 09:00 Folic Acid (Folic Acid) 1 mg DAILY PO Last administered on 11/03/18at 08:46; Admin Dose 1 MG; Start 10/27/18 at 09:00 Thiamine HCl (Vitamin B1) 100 mg DAILY PO Last administered on 11/03/18at 08:46; Admin Dose 100 MG; Start 10/27/18 at 09:00; Stop 11/10/18 at 08:59 Multivitamins Therapeutic (Theragran) 1 tab DAILY PO Last administered on 11/03/18 08:46; Admin Dose 1 TAB; Start 10/27/18 at 09:00 Lorazepam (Ativan) 1 mg Q4H PRN IV withdrawal, seizures Last administered on 10/29/18 08:50; Admin Dose 1 MG; Start 10/26/18 at 19:30 IV Flush (NS 3 ml) 3 ml PER PROTOCOL IV ; Start 10/26/18 at 19:30 Ondansetron HCl (Zofran Inj) 4 mg Q6H PRN IV NAUSEA/VOMITING; Start 10/26/18 at 19:30 Docusate Sodium (Colace) 100 mg Q12H PRN PO .CONSTIPATION; Start 10/26/18 at 19:30 Magnesium Hydroxide (Milk Of Mag) 30 ml DAILY PRN PO .CONSTIPATION; Start 10/26/18 at 19:30 Lisinopril (Zestril) 10 mg BID PO Last administered on 11/03/18 08:46; Admin Dose 10 MG; Start 10/27/18 at 09:00 Methylprednisolone Sodium Succinate (Solu-Medrol) 40 mg DAILY IV Last administered on 11/03/18 08:46; Admin Dose 40 MG; Start 10/27/18 at 14:30 Rifaximin (Xifaxan) 550 mg BID PO Last administered on 11/03/18 08:46; Admin Dose 550 MG; Start 10/28/18 at 21:00 Lactulose (Enulose) 30 gm Q6 PO Last administered on 11/03/18 06:07; Admin Dose 30 GM; Start 10/30/18 at 18:00 Sodium Chloride (Nacl) 1 gm BID PO Last administered on 11/03/18 08:46; Admin Dose 1 GM; Start 11/02/18 at 09:00 BUCK CARO MD Nov 03, 2018 09:56
--- NOTE | 2018-11-03 10:03 | DS ---
Date/Time of Note Date/Time of Note DATE: 11/03/18 TIME: 09:57 Discharge Summary Admission/Discharge Info Admit Date/Time Oct 26, 2018 at 17:57 Discharge Date/Time Discharge Diagnosis 1.Decompensated Alcoholic Liver Cirrhosis 2. Alcohol abuse,active 3.Hypertension 4.Hyponatremia 2/2 alcoholism/liver disease.stable 5.Transaminase elevation w/hyperbilirubinemia 2/2 #2 6.Obesity 7. Anemia of alcoholic liver disease. Patient Condition: Stable Consults Dr. Nuñez, gastroenterology Dr. Baumann, stoker erector and servicer Hospital Course 53-year-old male with alcoholic liver cirrhosis, hypertension, treated with 1 month of worsening jaundice, abdominal pain with nausea/vomiting found to have worsening liver fxn with transaminase elevation and hyperbilirubinemia. Patient had GI evaluation. He was ruled out for cholecystitis, choledocholithiasis. According to GI, patient symptoms are likely secondary to hepatocellular disease from alcoholism. Patient had negative hepatitis RNA study. He was also noted with anemia of alcoholic liver disease. H&H remained stable as such she did not require any transfusion. Patient also had leukocytosis, probably secondary to him receiving steroid therapy. Patient was counseled on abstinence from alcohol. Patient was treated with lactulose, rifaximin, and Aldactone. Unfortunately, he was not a candidate for any further treatment unless patient stopped drinking alcohol. Patient was given resources by our hospital social worker and he is very much interested in alcohol rehab program. Patient's hospitalization was also notable for hyponatremia with alcoholic liver disease for which he was given sodium chloride pills and was being followed by nephrology. Sodium level remains stable. Patient was also given thiamine supplementation. Comorbidities managed per the records. At this time, patient's mental status is back to normal. He has been tolerating diet and activities well. Patient is medically stable for outpatient follow-up from a GI perspective. He was given prednisone treatment for a month duration. Approximately 60 minutes was spent in coordinating the discharge on this patient. Patient was seen in collaboration with Dr. Moya. Home Meds Active Scripts Sodium Chloride (Sodium Chloride) 1,000 Mg Tablet.dee, 1 GM PO BID for 14 Days, #28 TAB Prov:DOLLALEXA V. MANAGER PHOTO 11/03/18 Pantoprazole* (Protonix*) 40 Mg Tablet., 40 MG PO DAILY, #30 TAB Prov:DOLL,SCOTT V. MANAGER PHOTO 11/03/18 Prednisone* (Prednisone*) 20 Mg Tab, 40 MG PO DAILY for 28 Days, TAB Prov:SCOTT DOLL V. MANAGER PHOTO 11/03/18 Lactulose* (Lactulose*) 20 Gm/30 Ml Solution, 20 GM PO BID for 30 Days, #60 DOSE Prov:ALEX DOLLA V. MANAGER PHOTO 11/03/18 Thiamine* (Vitamin B-1*) 100 Mg Tablet, 100 MG PO DAILY, #30 TAB Prov:ALEX DOLLA V. MANAGER PHOTO 11/03/18 Lisinopril* (Lisinopril*) 10 Mg Tablet, 10 MG PO BID, #60 TAB Prov:SCOTT DOLL V. MANAGER PHOTO 11/03/18 Spironolactone* (Aldactone*) 25 Mg Tablet, 50 MG PO DAILY, #30 TAB Prov:SCOTT DOLL V. MANAGER PHOTO 11/03/18 Reported Medications Folic Acid (Fa-8) 0.8 Mg Tablet, 0.8 MG PO DAILY, TAB 10/26/18 Paroxetine Hcl* (Paxil*) 30 Mg Tablet, 30 MG PO HS, TAB 10/26/18 Discontinued Reported Medications Spironolactone* (Aldactone*) 25 Mg Tablet, 25 MG PO DAILY, #30 TAB 10/26/18 Spironolactone* (Aldactone*) 25 Mg Tablet, 25 MG PO DAILY, #30 TAB 10/26/18 Lisinopril* (Lisinopril*) 30 Mg Tablet, 30 MG PO DAILY, #30 TAB 10/26/18 Follow-up Plan Follow-up with primary care physician in 1 week. You also need patient gastroenterology follow-up for which your primary care physician can refer you. You need to stop drinking alcohol to be evaluated for any further treatment option for alcoholic liver disease available. Follow-up with industrial trainer in 2 weeks [id number] [facility] [place] [address] Office To have low sodium in your blood and you instructed to take sodium chloride tablet twice a day for next 2 weeks and you need to recheck your sodium level. You can follow-up with stoker erector and servicer Dr. Baumann in couple weeks who can order the blood test. Terry Baumann M.D., [facility] [id number] [address] Office Primary Care Provider [facility] SCOTT DOLL NP Nov 03, 2018 10:03
[2018-11-03 11:12] VITALS: BP 134/63; PULSE 89; RESP 16
== END 2018-11-03 13:00 | disposition home or self-care (01) | DRG 433 ==
LOC: E/R 14:05 → TEL 17:57
PROVIDERS: ADMIT Internal Medicine; ATTEND Internal Medicine
DX: K70.30 Alcoholic cirrhosis of liver without ascites (principal); E87.1 Hypo-osmolality and hyponatremia; F10.239 Alcohol dependence with withdrawal, unspecified; D68.4 Acquired coagulation factor deficiency; D69.6 Thrombocytopenia, unspecified; D63.8 Anemia in other chronic diseases classified elsewhere; I10 Essential (primary) hypertension; K70.40 Alcoholic hepatic failure without coma; K76.0 Fatty (change of) liver, not elsewhere classified; K70.10 Alcoholic hepatitis without ascites; E88.09 Other disorders of plasma-protein metabolism, not elsewhere classified; E66.9 Obesity, unspecified; Z68.39 Body mass index [BMI] 39.0-39.9, adult
CPT/HCPCS: 36415; 71045; 73610; 74181; 76705; 78226; 80053; 80061; 80307; 82140; 82150; 83036; 83540; 83690; 83735; 83880; 83930; 83935; 84300; 84439; 84443; 84484; 85025; 85610; 85651; 85730; 86704; 86709; 86803; 87340; 87522; 93005; 96374; 96375; 97110; 97116; 97162; 97165; 97530; 97535; A9537; C9113; J1630; J2060; J2405; J2920; J7030; P9047

== ENCOUNTER 2018-11-08 15:18 | Inpatient (IN) | payer OTHER ==
[~2018-11-08] VITALS: Ht 162.6 cm; Wt 114.2 kg
[~2018-11-08 15:18] MED LIST changes: -CIPR500T4 PO; -CYCL10TA7 PO; -FLUT16SP17 NASAL; +FOL8 PO; +LACT20SO2 PO; +LISI10TA2 PO; -LISI30TA47 PO; -METR500T PO; -NAPR-985 PO; +PANT40TA3 PO; -PARO-2 PO; +PARO30TA48 PO; +PRED20TA PO; +SPIR25TA PO; +THIA100T56 PO; +[UNRECOGNIZED DRUG - CODE] PO
--- NOTE | 2018-11-08 17:24 | ERD ---
ER Documentation Chief Complaint Chief Complaint N/V, UNABLE TO TAKE PO HPI The patient is a 53-year-old male, presenting to the ER because of generalized weakness, vomiting for the last 4 weeks, unable to keep the food down. He was discharged from the hospital approximately 5 days ago. He denies fever, chills, neck pain, chest pain, dyspnea, complains of diffuse vague abdominal pain, denies hematemesis, dysuria, complains of blood-tinged stool. He does not smoke, used to drink heavily Past medical history: Hypertension, depression, anxiety, dyslipidemia, cirrhosis, hepatitis C Past surgical history: None ROS All systems reviewed and are negative except as per history of present illness. Medications Home Meds Active Scripts Sodium Chloride (Sodium Chloride) 1,000 Mg Tablet.dee, 1 GM PO BID for 14 Days, #28 TAB Prov:SCOTT DOLL V. SETTER OFF 11/03/18 Pantoprazole* (Protonix*) 40 Mg Tablet.dr, 40 MG PO DAILY, #30 TAB Prov:SCOTT DOLL V. SETTER OFF 11/03/18 Prednisone* (Prednisone*) 20 Mg Tab, 40 MG PO DAILY for 28 Days, TAB Prov:SCOTT DOLL V. SETTER OFF 11/03/18 Thiamine* (Vitamin B-1*) 100 Mg Tablet, 100 MG PO DAILY, #30 TAB Prov:SCOTT DOLL V. SETTER OFF 11/03/18 Lisinopril* (Lisinopril*) 10 Mg Tablet, 10 MG PO BID, #60 TAB Prov:SCOTT DOLL V. SETTER OFF 11/03/18 Spironolactone* (Aldactone*) 25 Mg Tablet, 50 MG PO DAILY, #30 TAB Prov:SCOTT DOLL V. SETTER OFF 11/03/18 Reported Medications Naltrexone Hcl (Trexan) 50 Mg Tab, 50 MG PO DAILY, TAB 11/08/18 Paroxetine Hcl* (Paxil*) 30 Mg Tablet, 30 MG PO HS, TAB 10/26/18 Discontinued Reported Medications Folic Acid (Fa-8) 0.8 Mg Tablet, 0.8 MG PO DAILY, TAB 10/26/18 Spironolactone* (Aldactone*) 25 Mg Tablet, 25 MG PO DAILY, #30 TAB 10/26/18 Spironolactone* (Aldactone*) 25 Mg Tablet, 25 MG PO DAILY, #30 TAB 10/26/18 Lisinopril* (Lisinopril*) 30 Mg Tablet, 30 MG PO DAILY, #30 TAB 10/26/18 Discontinued Scripts Lactulose* (Lactulose*) 20 Gm/30 Ml Solution, 20 GM PO BID for 30 Days, #60 DOSE Prov:SCOTT DOLL V. SETTER OFF 11/03/18 Allergies Allergies: Coded Allergies: No Known Allergy (Unverified , 11/08/18) PMhx/Soc History of Surgery: No Anesthesia Reaction: No Hx 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 Disorder: No Hx Respiratory Disorders: No Hx Cardiac Disorders: Yes (HTN, high cholesterol) Hx Psychiatric Problems: Yes (depreesion, anxiety) Hx Miscellaneous Medical Probl: No Hx Alcohol Use: Yes (2 drink beeer/ day) Hx Substance Use: Yes (alcohol) Hx Tobacco Use: No Physical Exam Vitals Vital Signs Date Temp Pulse Resp B/P (MAP) Pulse Ox O2 O2 Flow FiO2 Time Delivery Rate 11/08/18 97.1 71 22 121/56 98 15:28 (77) Physical Exam Const: No acute distress.Jaundice Head: Atraumatic. Eyes: Icteric Conjunctiva. ENT: Normal External Ears, Nose and Mouth. Neck: Full range of motion. No meningismus. Resp: Clear to auscultation bilaterally. Cardio: Regular rate and rhythm. Abd: Soft, non distended, normal bowel sounds, vague and diffuse abdominal discomfort Skin: No petechiae or rashes. Back: No midline or flank tenderness. Ext: No cyanosis, or edema. Neur: Awake and alert. No focal deficit Psych: Normal Mood and Affect. Result Diagram: 11/08/188 11/08/188 Results 24 hrs Laboratory Tests Test 11/08/18 18:08 11/08/18 18:51 White Blood Count 18.5 10^3/ul Red Blood Count 2.95 10^6/ul Hemoglobin 10.5 g/dl Hematocrit 29.6 % Mean Corpuscular Volume 100.3 fl Mean Corpuscular Hemoglobin 35.6 pg Mean Corpuscular Hemoglobin Concent 35.5 g/dl Red Cell Distribution Width 20.0 % Platelet Count 96 10^3/UL Mean Platelet Volume 9.8 fl Immature Granulocytes % 5.100 % Neutrophils % 82.0 % Lymphocytes % 5.1 % Monocytes % 7.3 % Eosinophils % 0.3 % Basophils % 0.2 % Nucleated Red Blood Cells % 0.0 /100WBC Immature Granulocytes # 0.940 10^3/ul Neutrophils # 15.1 10^3/ul Lymphocytes # 1.0 10^3/ul Monocytes # 1.4 10^3/ul Eosinophils # 0.1 10^3/ul Basophils # 0.0 10^3/ul Nucleated Red Blood Cells # 0.0 10^3/ul Prothrombin Time 23.6 Sec Prothrombin Time Ratio 1.8 INR International Normalized Ratio 2.10 Activated Partial Thromboplast Time 49.7 Sec Sodium Level 123 mmol/L Potassium Level 5.1 mmol/L Chloride Level 93 mmol/L Carbon Dioxide Level 21 mmol/L Anion Gap 9 Blood Urea Nitrogen 27 mg/dl Creatinine 0.98 mg/dl Est Glomerular Filtrat Rate mL/min > 60 mL/min Glucose Level 100 mg/dl Calcium Level 9.3 mg/dl Total Bilirubin 22.2 mg/dl Direct Bilirubin 17.90 mg/dl Indirect Bilirubin 4.3 mg/dl Aspartate Amino Transf (AST/SGOT) 430 IU/L Alanine Aminotransferase (ALT/SGPT) 324 IU/L Alkaline Phosphatase 458 IU/L Ammonia 11 umol/l Total Protein 7.5 g/dl Albumin 2.9 g/dl Globulin 4.60 g/dl Albumin/Globulin Ratio 0.63 Lipase 325 U/L Ethyl Alcohol Level < 10.0 mg/dl Urine Color KRISTOPHER Urine Clarity CLOUDY Urine pH 5.0 Urine Specific Bradley 1.020 Urine Ketones NEGATIVE mg/dL Urine Nitrite NEGATIVE mg/dL Urine Bilirubin 2+ mg/dL Urine Urobilinogen 2+ mg/dL Urine Leukocyte Esterase NEGATIVE Sylwia/ul Urine Microscopic RBC 67 /HPF Urine Microscopic WBC 54 /HPF Urine Squamous Epithelial Cells FEW /HPF Urine Bacteria FEW /HPF Urine Mucus MANY /HPF Urine Hemoglobin 1+ mg/dL Urine Glucose NEGATIVE mg/dL Urine Total Protein NEGATIVE mg/dl Procedures/MDM MEDICAL MAKING DECISION: The patient is a 53-year-old male, presenting with acute hyponatremia, likely due to cirrhosis The differential diagnoses considered include but are not limited to siadh, electrolyte abnormality, worsening cirrhosis, dehydration, thyroid disease Departure Diagnosis: Primary Impression: Hyponatremia Additional Impressions: Anemia Thrombocytopenia Coagulopathy Condition: Stable Comments I discussed the findings with the patient. I discussed the patient with Dr Narayan at 7:35 p , who was made aware of the lab, the treatment, the patient condition. The patient is admitted to Tel Disclaimer: Inadvertent spelling and grammatical errors are likely due to EHR/dictation software use and do not reflect on the overall quality of patient care. Also, please note that the electronic time recorded on this note does not necessarily reflect the actual time of the patient encounter. ANA JOSUE MD Nov 08, 2018 17:24
[2018-11-08] MEDS ORDERED: TREX50 PO (17:43)
[2018-11-08] MEDS ORDERED: ONDANSETRON 4 MG INJ IV PRN (20:30)
[2018-11-08] MEDS ORDERED: NACL 0.9% 3 ML SYG IV SCH (20:30)
[2018-11-08] MEDS ORDERED: DOCUSATE SODIUM 100 MG CAP PO PRN (20:30)
[2018-11-08] MEDS ORDERED: BISACODYL (EC) 5 MG TAB PO PRN (20:30)
[2018-11-08] MEDS ORDERED: KETOROLAC 15 MG INJ IV STA (20:32)
--- NOTE | 2018-11-08 21:06 | HP ---
Date/Time of Note Date/Time of Note DATE: 11/08/18 TIME: 21:04 Assessment/Plan VTE Prophylaxis SCD applied (from Nsg): Yes Pharmacological prophylaxis: NA/contraindicated Pharm contraindication: low risk/ambulating Lines/Catheters IV Catheter Type (from Nrsg): Saline Lock Assessment/Plan Hospital Course This is a 53-year-old male being admitted to the telemetry floor for: 1. Acute on chronic decompensated alcoholic liver cirrhosis: Discriminant score 70. Direct bilirubin 17 and total bilirubin 22 which are significantly elevated from his previous admission. It is unclear whether patient has been compliant with his medications at home. At the current time but will continue him on Solu-Medrol 40 mg IV daily. I will start him on lactulose and Xifaxan, patient does appear confused despite his ammonia level being 11. Also continue him on his spironolactone. Consider lasix. Will consult GI . 2. Acute on Chronic hyponatremia: Likely component of hypervolemic hyponatremia. Sodium of 123. We will continue the patient on salt tablets. We will give him a small bolus of 250 cc of NS. Serial BMPs. Will consult nephrology Dr. Baumann 3. Hx of Alcoholic abuse: Patient has reports alcohol to drink approximately 2 weeks ago. He is current blood alcohol level is negative. Will monitor for any signs of withdrawal. Thiamine folate multivitamin. 4. Anemia likely anemia of chronic disease, continue to monitor. 5 hypertension: Continue lisinopril while monitoring potassium levels. 6. Alcoholic hepatitis: AST/ALT elevated 2:1 7. DVT GI prophylaxis: SCDs, Protonix Further treatment strategy will be implemented as per the clinical course. Result Diagram: 11/08/18 1808 11/08/18 1808 Results 24hrs Laboratory Tests Test 11/08/18 18:08 11/08/18 18:51 White Blood Count 18.5 #H Red Blood Count 2.95 L Hemoglobin 10.5 L Hematocrit 29.6 L Mean Corpuscular Volume 100.3 Mean Corpuscular Hemoglobin 35.6 H Mean Corpuscular Hemoglobin Concent 35.5 Red Cell Distribution Width 20.0 H Platelet Count 96 #L Mean Platelet Volume 9.8 Immature Granulocytes % 5.100 H Neutrophils % 82.0 H Lymphocytes % 5.1 L Monocytes % 7.3 Eosinophils % 0.3 Basophils % 0.2 Nucleated Red Blood Cells % 0.0 Immature Granulocytes # 0.940 H Neutrophils # 15.1 H Lymphocytes # 1.0 Monocytes # 1.4 H Eosinophils # 0.1 Basophils # 0.0 Nucleated Red Blood Cells # 0.0 Prothrombin Time 23.6 H Prothrombin Time Ratio 1.8 INR International Normalized Ratio 2.10 Activated Partial Thromboplast Time 49.7 H Sodium Level 123 L Potassium Level 5.1 Chloride Level 93 L Carbon Dioxide Level 21 Anion Gap 9 Blood Urea Nitrogen 27 H Creatinine 0.98 Est Glomerular Filtrat Rate mL/min > 60 Glucose Level 100 Calcium Level 9.3 Total Bilirubin 22.2 H Direct Bilirubin 17.90 *H Indirect Bilirubin 4.3 H Aspartate Amino Transf (AST/SGOT) 430 H Alanine Aminotransferase (ALT/SGPT) 324 H Alkaline Phosphatase 458 H Ammonia 11 Total Protein 7.5 Albumin 2.9 L Globulin 4.60 H Albumin/Globulin Ratio 0.63 Lipase 325 H Ethyl Alcohol Level < 10.0 H Urine Color KRISTOPHER Urine Clarity CLOUDY A Urine pH 5.0 Urine Specific Saffell 1.020 Urine Ketones NEGATIVE Urine Nitrite NEGATIVE Urine Bilirubin 2+ H Urine Urobilinogen 2+ H Urine Leukocyte Esterase NEGATIVE Urine Microscopic RBC 67 H Urine Microscopic WBC 54 H Urine Squamous Epithelial Cells FEW Urine Bacteria FEW A Urine Mucus MANY A Urine Hemoglobin 1+ H Urine Glucose NEGATIVE Urine Total Protein NEGATIVE HPI/ROS Admit Date/Time Admit Date/Time Nov 08, 2018 at 19:37 Hx of Present Illness Chief complaint: Generalized weakness, last 4 weeks This is a 53-year-old male returns to the emergency department after recent admission complaining of generalized weakness over the last 4 weeks. He does report unable to keep food down. He was discharged from the hospital on 11/03/2018. He was treated for decompensated alcoholic cirrhosis. Patient reports that he has noticed himself becoming more jaundiced. He does report that he has dark colored urine. He denies any chest pain or shortness of breath. He reports that he is unsure whether he is taking all the medications he was discharged on including the salt tablets. He reports his last alcoholic drink was greater than 2 weeks ago. He does report that he has been slightly confused and when he walks he feels unstable despite using his walker. Of note during patient's recent admission he had imaging studies are performed including a HIDA scan and an abdominal MRI which were negative for any signs of obstruction, biliary dilatation, or cholecystitis. Allergies: NKDA Medications: See MAR ROS Const: As per HPI Eyes : No pain discharge or redness or change in visual acuity ENT: No pain, sore throat, congestion, congestion, dysphagia or discharge Respiratory: No shortness of breath, cough, sputum, wheezing, or pleuritic pain Cardiovascular: No chest pain, palpitation, PND, or edema GI : no change in appetite, abdominal pain, nausea, vomiting, diarrhea, constipation, or change in the color his stool Genitourinary: No dysuria, hematuria, flank pain , discharge or CVA tenderness Musculoskeletal: No joint pain, back pain, neck pain, restricted range of motion in neck or joints Skin: As per HPI Neuro: No headache, dizziness, syncope, seizure, focal weakness Endocrine: No polyuria, polydipsia, temperature intolerance Psych: No hallucination, depression, anxiety or suicidal ideation PMH/Family/Social Past Medical History alcohol liver cirrhosis and HTN , hepatitis C Medications Current Medications IV Flush (NS 3 ml) 3 ml PER PROTOCOL IV ; Start 11/08/18 at 20:30 Docusate Sodium (Colace) 100 mg Q12H PRN PO .CONSTIPATION; Start 11/08/18 at 20:30 Bisacodyl (Dulcolax) 5 mg DAILY PRN PO .CONSTIPATION; Start 11/08/18 at 20:30 Ondansetron HCl (Zofran Inj) 4 mg Q4H PRN IV NAUSEA AND/OR VOMITING; Start 11/08/18 at 20:30 Methylprednisolone Sodium Succinate (Solu-Medrol) 40 mg DAILY IV ; Start at 20:30 Pantoprazole (Protonix Iv) 40 mg DAILY@06 IV ; Start 11/08/18 at 20:30 Lisinopril (Zestril) 10 mg BID PO ; Start 11/08/18 at 21:00; Status UNV Thiamine HCl (Vitamin B1) 100 mg DAILY PO ; Start 11/09/18 at 09:00; Status UNV Sodium Chloride (Nacl) 1 gm BID PO ; Start 11/08/18 at 21:00; Status UNV Coded Allergies: No Known Allergy (Unverified , 11/08/18) Past Surgical History Past Surgical Hx: no surgical history Family History Significant Family History: no pertinent family hx Social History Alcohol Use: sober Smoking Status: Never smoker Drug Use: none Exam/Review of Systems Vital Signs Vitals Vital Signs Date Temp Pulse Resp B/P (MAP) Pulse Ox O2 O2 Flow FiO2 Time Delivery Rate 11/08/18 97.6 68 13 130/73 97 Room Air 20:43 (92) Exam Exam General: Patient is currently sitting upright in bed, he does appear to have the tremors, he appears slightly confused HEENT: Atraumatic, normocephalic. The pupils are equal, round and reactive. Extraocular motor are intact, scleral icterus Neck: Supple with full range of motion. No rigidity or meningismus Chest: Nontender Lungs: Clear to auscultation bilaterally no crackles rales or wheezing Heart: Normal S1-S2, Regular rhythm and rate. No murmur, S3, or S4 Abdomen: Obese, soft , nontender, nondistended , bowel sounds are present. No guarding no rebound tenderness , No masses or organomegaly. No costovertebral temporal angle mass Extremities: Normal to inspection, no edema no cyanosis trace bilateral lower extremity edema Neurologic: Alert and oriented x3, speech is normal, he does though appear to be slightly confused. Asterixis/tremors. skin: jaundice CARLOS SHEETS Nov 08, 2018 21:06
[2018-11-08 21:26] VITALS: PULSE 73
[2018-11-08 21:45] VITALS: BP 120/56; PULSE 76; RESP 18
[2018-11-08 22:50] VITALS: Ht 162.6 cm; Wt 114.2 kg
[2018-11-08] MEDS: SODIUM CHLORIDE 1 GM TAB PO SCH (23:27)
[2018-11-08] MEDS: METHYLPREDNISOLONE 40 MG INJ IV SCH (23:28)
[2018-11-08] MEDS: LISINOPRIL 10 MG TAB PO SCH (23:28)
[2018-11-08] MEDS: PANTOPRAZOLE 40 MG INJ IV SCH (23:29)
[2018-11-09] VITALS (10 sets, daily range): BP systolic 115–139; BP diastolic 56–65; PULSE 55–111; RESP 17–20
[2018-11-09] MEDS ORDERED: SOD CHLORIDE 0.9% 250 ML IV ONE ×2 (01:35)
[2018-11-09] MEDS: RIFAXIMIN 550 MG TAB PO SCH ×3 (01:43→20:35)
[2018-11-09] MEDS: PANTOPRAZOLE 40 MG INJ IV SCH (06:27)
[2018-11-09] MEDS ORDERED: SPIRONOLACTONE 50 MG TAB PO SCH (09:00)
[2018-11-09] MEDS: SODIUM CHLORIDE 1 GM TAB PO SCH ×2 (09:22→20:35)
[2018-11-09] MEDS: MULTIVITAMINS THERAPEUTIC TAB PO SCH (09:22)
[2018-11-09] MEDS: FOLIC ACID 1 MG TAB PO SCH (09:22)
[2018-11-09] MEDS: THIAMINE 100 MG TAB PO SCH (09:22)
[2018-11-09] MEDS: LISINOPRIL 10 MG TAB PO SCH (09:23)
[2018-11-09] MEDS: METHYLPREDNISOLONE 40 MG INJ IV SCH (09:23)
--- NOTE | 2018-11-09 11:43 | PN ---
Date/Time of Note Date/Time of Note DATE: 11/09/18 TIME: 11:36 Assessment/Plan VTE Prophylaxis SCD applied (from Ns): Yes SCD contraindicated: other Pharmacological prophylaxis: NA/contraindicated Pharm contraindication: liver dx Lines/Catheters IV C[facility]ter Type (from [facility] Saline Lock Urinary Cath still in place: No Assessment/Plan Hospital Course SUBJECTIVE: Lying in bed, no acute distress. OBJECTIVE: Vital signs-see below PHYSICAL EXAM: Constitutional: Jaundiced male, drowsy/mildly confused. HEENT: Head atraumatic and normocephalic. Eyes: Extraocular muscles intact.Icteric sclerae. Pupils equal bilaterally, reactive to light. NECK: Supple without lymph node. CHEST: Clear and good breath sounds equally. No wheezing. No rhonchi. HEART: S1, S2. Regular rate and rhythm. ABDOMEN: Soft, nontender. Bowel sounds were present. EXTREMITIES: Full range of motion in all the extremities. No cyanosis, clubbing or edema. NEUROLOGIC: Alert and oriented x3. No focal deficit. No sensory deficit. PSYCHOSOCIAL: In a good mood. No signs of depression. INTEGUMENTARY: Jaundiced+ ASSESSMENT AND PLAN: 53-year-old male with alcoholic liver cirrhosis, hypertension, treated with 1 month of worsening jaundice, here with worsening mental status/lethargy, found to have worsening liver function. 1.Decompensated Alcoholic Liver Cirrhosis with portal hypertension/mild volume ascites -Pt was discharged a week ago from the hospital with recommendation for outpatient GI follow-up which he has not done. -At this time, will start patient on Lasix, Aldactone -Last drink was a week ago, emphasized on not to restart drinking and to have a tertiary care follow-up as outpatient once he prove a sober for at least 6 months to consider him for further treatment options available for him. -GI follow-up. 2. Hepatic encephalopathy -Lactulose, rifaximin 3. Transaminitis with worsening bilirubinemia secondary to #alcoholic hepatitis -Treatment as mentioned in 1. 4. Alcohol abuse -Last drink was a week ago. Counseled on cessation. 5.Hypertension -Adequate control -We will hold GAUDENCIO inhibitors to allow room for Lasix and Aldactone. 6.Hyponatremia 2/2 alcoholism/liver disease -This is now a chronic issue. Will put on fluid restriction. Start Lasix and Aldactone. -Nephrology follow-up 7.Obesity -life style changes advised 8. Anemia alcoholic liver disease -Stable H&H. Continue to monitor. 9. Leukocytosis, likely secondary to steroids. -No evidence to suggest infection. Patient was recommended to continue steroid for a total 28 days and he is on his 3RD week. prophylaxis:scds/ppi diet: regular code:hubert disp:cont.current management. Case management to help patient with outpatient liver clinic/GI follow-up. patient was seen in collaboration with Result Diagram: 11/09/18 0644 11/09/18 0644 Results 24hrs Laboratory Tests Test 11/08/18 18:08 11/08/18 18:51 11/09/18 06:44 White Blood Count 18.5 #H 16.8 H Red Blood Count 2.95 L 2.93 L Hemoglobin 10.5 L 10.4 L Hematocrit 29.6 L 29.4 L Mean Corpuscular Volume 100.3 100.3 Mean Corpuscular Hemoglobin 35.6 H 35.5 H Mean Corpuscular Hemoglobin Concent 35.5 35.4 Red Cell Distribution Width 20.0 H 19.9 H Platelet Count 96 #L 89 L Mean Platelet Volume 9.8 10.4 Immature Granulocytes % 5.100 H 4.400 H Neutrophils % 82.0 H 87.8 H Lymphocytes % 5.1 L 4.5 L Monocytes % 7.3 3.0 Eosinophils % 0.3 0.1 Basophils % 0.2 0.2 Nucleated Red Blood Cells % 0.0 0.0 Immature Granulocytes # 0.940 H 0.740 H Neutrophils # 15.1 H 14.7 H Lymphocytes # 1.0 0.8 Monocytes # 1.4 H 0.5 Eosinophils # 0.1 0.0 Basophils # 0.0 0.0 Nucleated Red Blood Cells # 0.0 0.0 Prothrombin Time 23.6 H 24.6 H Prothrombin Time Ratio 1.8 1.9 INR International Normalized Ratio 2.10 2.21 Activated Partial Thromboplast Time 49.7 H Sodium Level 123 L 124 L Potassium Level 5.1 5.3 H Chloride Level 93 L 94 L Carbon Dioxide Level 21 21 Anion Gap 9 9 Blood Urea Nitrogen 27 H 26 H Creatinine 0.98 0.69 Est Glomerular Filtrat Rate mL/min > 60 > 60 Glucose Level 100 119 Calcium Level 9.3 8.9 Total Bilirubin 22.2 H 23.5 H Direct Bilirubin 17.90 *H 19.20 *H Indirect Bilirubin 4.3 H 4.3 H Aspartate Amino Transf (AST/SGOT) 430 H 472 H Alanine Aminotransferase (ALT/SGPT) 324 H 345 H Alkaline Phosphatase 458 H 390 H Ammonia 11 Total Protein 7.5 7.5 Albumin 2.9 L 2.9 L Globulin 4.60 H 4.60 H Albumin/Globulin Ratio 0.63 0.63 Lipase 325 H Ethyl Alcohol Level < 10.0 H Urine Color KRISTOPHER Urine Clarity CLOUDY A Urine pH 5.0 Urine Specific [place] 1.020 Urine Ketones NEGATIVE Urine Nitrite NEGATIVE Urine Bilirubin 2+ H Urine Urobilinogen 2+ H Urine Leukocyte Esterase NEGATIVE Urine Microscopic RBC 67 H Urine Microscopic WBC 54 H Urine Squamous Epithelial Cells FEW Urine Bacteria FEW A Urine Mucus MANY A Urine Hemoglobin 1+ H Urine Glucose NEGATIVE Urine Total Protein NEGATIVE Exam/Review of Systems Exam Vitals Vital Signs Date Temp Pulse Resp B/P (MAP) Pulse Ox O2 O2 Flow FiO2 Time Delivery Rate 11/09/18 75 08:18 11/09/18 97.6 20 116/56 95 07:18 (76) 11/08/18 Room Air 20:43 Intake and Output 11/08/18 11/08/18 11/09/18 1515:00 23:00 07:00 IntakeIntake Total 250 ml BalanceBalance 250 ml Results Results 24hrs Laboratory Tests Test 11/08/18 18:08 11/08/18 18:51 11/09/18 06:44 White Blood Count 18.5 #H 16.8 H Red Blood Count 2.95 L 2.93 L Hemoglobin 10.5 L 10.4 L Hematocrit 29.6 L 29.4 L Mean Corpuscular Volume 100.3 100.3 Mean Corpuscular Hemoglobin 35.6 H 35.5 H Mean Corpuscular Hemoglobin Concent 35.5 35.4 Red Cell Distribution Width 20.0 H 19.9 H Platelet Count 96 #L 89 L Mean Platelet Volume 9.8 10.4 Immature Granulocytes % 5.100 H 4.400 H Neutrophils % 82.0 H 87.8 H Lymphocytes % 5.1 L 4.5 L Monocytes % 7.3 3.0 Eosinophils % 0.3 0.1 Basophils % 0.2 0.2 Nucleated Red Blood Cells % 0.0 0.0 Immature Granulocytes # 0.940 H 0.740 H Neutrophils # 15.1 H 14.7 H Lymphocytes # 1.0 0.8 Monocytes # 1.4 H 0.5 Eosinophils # 0.1 0.0 Basophils # 0.0 0.0 Nucleated Red Blood Cells # 0.0 0.0 Prothrombin Time 23.6 H 24.6 H Prothrombin Time Ratio 1.8 1.9 INR International Normalized Ratio 2.10 2.21 Activated Partial Thromboplast Time 49.7 H Sodium Level 123 L 124 L Potassium Level 5.1 5.3 H Chloride Level 93 L 94 L Carbon Dioxide Level 21 21 Anion Gap 9 9 Blood Urea Nitrogen 27 H 26 H Creatinine 0.98 0.69 Est Glomerular Filtrat Rate mL/min > 60 > 60 Glucose Level 100 119 Calcium Level 9.3 8.9 Total Bilirubin 22.2 H 23.5 H Direct Bilirubin 17.90 *H 19.20 *H Indirect Bilirubin 4.3 H 4.3 H Aspartate Amino Transf (AST/SGOT) 430 H 472 H Alanine Aminotransferase (ALT/SGPT) 324 H 345 H Alkaline Phosphatase 458 H 390 H Ammonia 11 Total Protein 7.5 7.5 Albumin 2.9 L 2.9 L Globulin 4.60 H 4.60 H Albumin/Globulin Ratio 0.63 0.63 Lipase 325 H Ethyl Alcohol Level < 10.0 H Urine Color KRISTOPHER Urine Clarity CLOUDY A Urine pH 5.0 Urine Specific [place] 1.020 Urine Ketones NEGATIVE Urine Nitrite NEGATIVE Urine Bilirubin 2+ H Urine Urobilinogen 2+ H Urine Leukocyte Esterase NEGATIVE Urine Microscopic RBC 67 H Urine Microscopic WBC 54 H Urine Squamous Epithelial Cells FEW Urine Bacteria FEW A Urine Mucus MANY A Urine Hemoglobin 1+ H Urine Glucose NEGATIVE Urine Total Protein NEGATIVE Medications Medication Current Medications IV Flush (NS 3 ml) 3 ml PER PROTOCOL IV ; Start 11/08/18 at 20:30 Docusate Sodium (Colace) 100 mg Q12H PRN PO .CONSTIPATION; Start 11/08/18 at 20:30 Bisacodyl (Dulcolax) 5 mg DAILY PRN PO .CONSTIPATION; Start 11/08/18 at 20:30 Ondansetron HCl (Zofran Inj) 4 mg Q4H PRN IV NAUSEA AND/OR VOMITING; Start 11/08/18 at 20:30 Methylprednisolone Sodium Succinate (Solu-Medrol) 40 mg DAILY IV Last administered on 11/09/18 09:23; Admin Dose 40 MG; Start 11/08/18 at 20:30 Pantoprazole (Protonix Iv) 40 mg DAILY@06 IV Last administered on 11/09/18 06:27; Admin Dose 40 MG; Start 11/08/18 at 20:30 Lisinopril (Zestril) 10 mg BID PO Last administered on 11/09/18 09:23; Admin Dose 10 MG; Start 11/08/18 at 21:00 Thiamine HCl (Vitamin B1) 100 mg DAILY PO Last administered on 11/09/18 09:22; Admin Dose 100 MG; Start 11/09/18 at 09:00 Sodium Chloride (Nacl) 1 gm BID PO Last administered on 11/09/18 09:22; Admin Dose 1 GM; Start 11/08/18 at 22:00 Spironolactone (Aldactone) 50 mg DAILY PO Last administered on 11/09/18 09:23; Admin Dose 50 MG; Start 11/09/18 at 09:00 Lactulose (Enulose) 10 gm BID PRN PO CONSTIPATION; Start 11/09/18 at 00:00 Rifaximin (Xifaxan) 550 mg BID PO Last administered on 11/09/18 09:22; Admin Dose 550 MG; Start 11/09/18 at 00:00 Multivitamins Therapeutic (Theragran) 1 tab DAILY PO Last administered on 11/09/18 09:22; Admin Dose 1 TAB; Start 11/09/18 at 09:00 Folic Acid (Folic Acid) 1 mg DAILY PO Last administered on 11/09/18 09:22; Admin Dose 1 MG; Start 11/09/18 at 09:00 SCOTT DOLL NP Nov 09, 2018 11:43
[2018-11-09] MEDS ORDERED: LACTULOSE 30ML CUP PO PRN ×2 (12:00)
[2018-11-09] MEDS: IBUPROFEN 400 MG TAB PO PRN (12:00)
[2018-11-09] MEDS: FUROSEMIDE 40 MG TAB PO SCH (12:01)
[2018-11-09] MEDS ORDERED: PHYTONADIONE 10 MG in DEXTROSE 5% 50 ML IVPB ONE (14:30)
--- NOTE | 2018-11-09 14:33 | CONS ---
Assessment/Plan Assessment/Plan Assessment/Plan (Daily) Assessment: Decompensated liver cirrhosis Alcoholic hepatitis Hepatic encephalopathy -improved Coagulopathy Hematochezia Hematuria Thrombocytopenia Transaminitis Pancreatitis -lipase 325 Hyperbilirubinemia Obesity Hypertension No history of EGD or colonoscopy Plan: Continue rifaximin/lactulose Continue Aldactone Downgrade diet to clear liquid Vitamin K 10 mg x1 Monitor lipase Monitor LFTs If patient improves recommend EGD for variceal screening and colonoscopy for CRC screening and hematochezia Patient seen in collaboration with Dr. Nuñez Consultation Date/Type/Reason Admit Date/Time Nov 08, 2018 at 19:37 Date of Consultation: Nov 09, 2018 Type of Consult GI Reason for Consultation This is a 53-year-old male with a history of decompensated alcoholic cirrhosis who was previously admitted and treated for alcoholic hepatitis and discharged 6 days ago. Patient reportedly did not continue with lactulose at home. Returned last night with altered mental status and worsening of LFTs. Bilirubin and liver function test is trending up. Patient is complaining of hematuria and hematochezia. INR is 2.21. Discriminant function was 70 and patient was restarted on methylprednisolone for treatment of alcoholic hepatitis. Past medical history includes hypertension, anemia and alcohol abuse. Patient states his last drink was 3 weeks ago prior to previous admission. Patient denies any history of EGD or colonoscopy. Currently denies nausea, vomiting, hematemesis, diarrhea or constipation. Overall poor prognosis. If patient improves recommend EGD for screening for esophageal v arices and colonoscopy for colon cancer screening and hematochezia. Continue lactulose and rifaximin. Continue monitoring LFTs. Date/Time of Note DATE: 11/09/18 TIME: 14:18 Gastrointestinal: no complaints (See HPI) Past Medical History Hypertension, alcoholic liver disease, anemia Home Meds Active Scripts Sodium Chloride (Sodium Chloride) 1,000 Mg Tablet.dee, 1 GM PO BID for 14 Days, #28 TAB Prov:DOLL,SCOTT V. AUCTIONEER TOBACCO 11/03/18 Pantoprazole* (Protonix*) 40 Mg Tablet.dr, 40 MG PO DAILY, #30 TAB Prov:DOLL,SCOTT V. [employer] TOBACCO 11/03/18 Prednisone* (Prednisone*) 20 Mg Tab, 40 MG PO DAILY for 28 Days, TAB Prov:DOLL,SCOTT V. [employer] TOBACCO 11/03/18 Thiamine* (Vitamin B-1*) 100 Mg Tablet, 100 MG PO DAILY, #30 TAB Prov:SCOTT DOLL V. [employer] TOBACCO 11/03/18 Lisinopril* (Lisinopril*) 10 Mg Tablet, 10 MG PO BID, #60 TAB Prov:DOLLSCOTT V. AUCTIONEER TOBACCO 11/03/18 Spironolactone* (Aldactone*) 25 Mg Tablet, 50 MG PO DAILY, #30 TAB Prov:SCOTT DOLL V. [employer] TOBACCO 11/03/18 Reported Medications Naltrexone Hcl (Trexan) 50 Mg Tab, 50 MG PO DAILY, TAB 11/08/18 Paroxetine Hcl* (Paxil*) 30 Mg Tablet, 30 MG PO HS, TAB 10/26/18 Discontinued Reported Medications Folic Acid (Fa-8) 0.8 Mg Tablet, 0.8 MG PO DAILY, TAB 10/26/18 Spironolactone* (Aldactone*) 25 Mg Tablet, 25 MG PO DAILY, #30 TAB 10/26/18 Spironolactone* (Aldactone*) 25 Mg Tablet, 25 MG PO DAILY, #30 TAB 10/26/18 Lisinopril* (Lisinopril*) 30 Mg Tablet, 30 MG PO DAILY, #30 TAB 10/26/18 Discontinued Scripts Lactulose* (Lactulose*) 20 Gm/30 Ml Solution, 20 GM PO BID for 30 Days, #60 DOSE Prov:SCOTT DOLL V. [employer] TOBACCO 11/03/18 Medications Current Medications IV Flush (NS 3 ml) 3 ml PER PROTOCOL IV ; Start 11/08/18 at 20:30 Docusate Sodium (Colace) 100 mg Q12H PRN PO .CONSTIPATION; Start 11/08/18 at 20:30 Bisacodyl (Dulcolax) 5 mg DAILY PRN PO .CONSTIPATION; Start 11/08/18 at 20:30 Ondansetron HCl (Zofran Inj) 4 mg Q4H PRN IV NAUSEA AND/OR VOMITING; Start 11/08/18 at 20:30 Methylprednisolone Sodium Succinate (Solu-Medrol) 40 mg DAILY IV Last administered on 11/09/18at 09:23; Admin Dose 40 MG; Start 11/08/18 at 20:30 Pantoprazole (Protonix Iv) 40 mg DAILY@06 IV Last administered on 11/09/18at 06:27; Admin Dose 40 MG; Start 11/08/18 at 20:30 Lisinopril (Zestril) 10 mg BID PO Last administered on 11/09/18 09:23; Admin Dose 10 MG; Start 11/08/18 at 21:00; Status Hold Thiamine HCl (Vitamin B1) 100 mg DAILY PO Last administered on 11/09/18 09:22; Admin Dose 100 MG; Start 11/09/18 at 09:00 Sodium Chloride (Nacl) 1 gm BID PO Last administered on 11/09/18 09:22; Admin Dose 1 GM; Start 11/08/18 at 22:00 Rifaximin (Xifaxan) 550 mg BID PO Last administered on 11/09/18 09:22; Admin Dose 550 MG; Start 11/09/18 at 00:00 Multivitamins Therapeutic (Theragran) 1 tab DAILY PO Last administered on 11/09 09:22; Admin Dose 1 TAB; Start 11/09/18 at 09:00 Folic Acid (Folic Acid) 1 mg DAILY PO Last administered on 11/09/18 09:22; Admin Dose 1 MG; Start 11/09/18 at 09:00 Ibuprofen (Motrin) 400 mg Q6H PRN PO MILD PAIN(1-3) OR TEMP>38C Last administered on 11/09/18 12:00; Admin Dose 400 MG; Start 11/09/18 at 11:30 Spironolactone (Aldactone) 100 mg DAILY PO ; Start 11/10/18 at 09:00 Furosemide (Lasix) 40 mg DAILY PO Last administered on 11/09/18at 12:01; Admin Dose 40 MG; Start 11/09/18 at 12:00 Lactulose (Enulose) 20 gm DAILY PRN PO CONSTIPATION; Start 11/09/18 at 12:00 Allergies: Coded Allergies: No Known Allergy (Unverified , 11/08/18) Past Surgical History Past Surgical Hx: no surgical history Social History Alcohol Use: sober Smoking Status: Never smoker Drug Use: none Exam/Review of Systems Exam Vitals Vital Signs Date Temp Pulse Resp B/P (MAP) Pulse Ox O2 O2 Flow FiO2 Time Delivery Rate 11/09/18 73 12:11 11/09/18 98.0 20 129/57 95 11:40 (81) 11/08/18 Room Air 20:43 Intake and Output 11/08/18 11/08/18 11/09/18 1515:00 23:00 07:00 IntakeIntake Total 250 ml BalanceBalance 250 ml Exam PHYSICAL EXAMINATION: GENERAL: Well developed, well nourished, obese, alert & oriented x 3, in no acute distress SKIN: No lesions, profound jaundice, no evidence of bleeding diathesis LYMPHATIC: No palpable lymphadenopathy. HEAD: Normocephalic, atraumatic, no tenderness. EYES: Pupils equal reactive to light and accommodation, full extraocular movements, sclera-icteric, no discharge. EARS/NOSE AND THROAT: Ears normal, nose normal, oropharynx normal, oral membranes well hydrated without lesions. NECK: Supple, no masses, thyroid normal, JVP within normal limits, carotids normal without bruits. CHEST: Inspection within normal limits. CARDIOVASCULAR: Heart: Regular rate and rhythm, no murmurs, gallops or rubs. Peripheral pulses present within normal limits, no cyanosis, clubbing or edemas. No pulsatile abdominal mass RESPIRATORY: Lungs clear to auscultation and percussion, no wheezing, no rubs GASTROINTESTINAL AND LIVER: Abdomen: Soft, generalized tenderness, non- distended, no hernias, no masses, no organomegaly, +ascites, no guarding, no rebound tenderness, normoactive bowel sounds. Rectal: Deferred. GENITOURINARY: [Male genitalia within normal limits. EXTREMITIES: No cyanosis, clubbing or edema. Results Result Diagram: 11/09/18 0644 11/09/18 0644 Results 24hrs Laboratory Tests Test 11/08/18 18:08 11/08/18 18:51 11/09/18 06:44 White Blood Count 18.5 #H 16.8 H Red Blood Count 2.95 L 2.93 L Hemoglobin 10.5 L 10.4 L Hematocrit 29.6 L 29.4 L Mean Corpuscular Volume 100.3 100.3 Mean Corpuscular Hemoglobin 35.6 H 35.5 H Mean Corpuscular Hemoglobin Concent 35.5 35.4 Red Cell Distribution Width 20.0 H 19.9 H Platelet Count 96 #L 89 L Mean Platelet Volume 9.8 10.4 Immature Granulocytes % 5.100 H 4.400 H Neutrophils % 82.0 H 87.8 H Lymphocytes % 5.1 L 4.5 L Monocytes % 7.3 3.0 Eosinophils % 0.3 0.1 Basophils % 0.2 0.2 Nucleated Red Blood Cells % 0.0 0.0 Immature Granulocytes # 0.940 H 0.740 H Neutrophils # 15.1 H 14.7 H Lymphocytes # 1.0 0.8 Monocytes # 1.4 H 0.5 Eosinophils # 0.1 0.0 Basophils # 0.0 0.0 Nucleated Red Blood Cells # 0.0 0.0 Prothrombin Time 23.6 H 24.6 H Prothrombin Time Ratio 1.8 1.9 INR International Normalized Ratio 2.10 2.21 Activated Partial Thromboplast Time 49.7 H Sodium Level 123 L 124 L Potassium Level 5.1 5.3 H Chloride Level 93 L 94 L Carbon Dioxide Level 21 21 Anion Gap 9 9 Blood Urea Nitrogen 27 H 26 H Creatinine 0.98 0.69 Est Glomerular Filtrat Rate mL/min > 60 > 60 Glucose Level 100 119 Calcium Level 9.3 8.9 Total Bilirubin 22.2 H 23.5 H Direct Bilirubin 17.90 *H 19.20 *H Indirect Bilirubin 4.3 H 4.3 H Aspartate Amino Transf (AST/SGOT) 430 H 472 H Alanine Aminotransferase (ALT/SGPT) 324 H 345 H Alkaline Phosphatase 458 H 390 H Ammonia 11 Total Protein 7.5 7.5 Albumin 2.9 L 2.9 L Globulin 4.60 H 4.60 H Albumin/Globulin Ratio 0.63 0.63 Lipase 325 H Ethyl Alcohol Level < 10.0 H Urine Color KRISTOPHER Urine Clarity CLOUDY A Urine pH 5.0 Urine Specific [place] 1.020 Urine Ketones NEGATIVE Urine Nitrite NEGATIVE Urine Bilirubin 2+ H Urine Urobilinogen 2+ H Urine Leukocyte Esterase NEGATIVE Urine Microscopic RBC 67 H Urine Microscopic WBC 54 H Urine Squamous Epithelial Cells FEW Urine Bacteria FEW A Urine Mucus MANY A Urine Hemoglobin 1+ H Urine Glucose NEGATIVE Urine Total Protein NEGATIVE Medications Medication Current Medications IV Flush (NS 3 ml) 3 ml PER PROTOCOL IV ; Start 11/08/18 at 20:30 Docusate Sodium (Colace) 100 mg Q12H PRN PO .CONSTIPATION; Start 11/08/18 at 20:30 Bisacodyl (Dulcolax) 5 mg DAILY PRN PO .CONSTIPATION; Start 11/08/18 at 20:30 Ondansetron HCl (Zofran Inj) 4 mg Q4H PRN IV NAUSEA AND/OR VOMITING; Start 11/08/18 at 20:30 Methylprednisolone Sodium Succinate (Solu-Medrol) 40 mg DAILY IV Last administered on 11/09/18 09:23; Admin Dose 40 MG; Start 11/08/18 at 20:30 Pantoprazole (Protonix Iv) 40 mg DAILY@06 IV Last administered on 11/09/18 06:27; Admin Dose 40 MG; Start 11/08/18 at 20:30 Lisinopril (Zestril) 10 mg BID PO Last administered on 11/09/18 09:23; Admin Dose 10 MG; Start 11/08/18 at 21:00; Status Hold Thiamine HCl (Vitamin B1) 100 mg DAILY PO Last administered on 11/09/18 09:22; Admin Dose 100 MG; Start 11/09/18 at 09:00 Sodium Chloride (Nacl) 1 gm BID PO Last administered on 11/09/18 09:22; Admin Dose 1 GM; Start 11/08/18 at 22:00 Rifaximin (Xifaxan) 550 mg BID PO Last administered on 11/09/18 09:22; Admin Dose 550 MG; Start 11/09/18 at 00:00 Multivitamins Therapeutic (Theragran) 1 tab DAILY PO Last administered on 11/09/18 09:22; Admin Dose 1 TAB; Start 11/09/18 at 09:00 Folic Acid (Folic Acid) 1 mg DAILY PO Last administered on 11/09/18 09:22; Admin Dose 1 MG; Start 11/09/18 at 09:00 Ibuprofen (Motrin) 400 mg Q6H PRN PO MILD PAIN(1-3) OR TEMP>38C Last administered on 11/09/18 12:00; Admin Dose 400 MG; Start 11/09/18 at 11:30 Spironolactone (Aldactone) 100 mg DAILY PO ; Start 11/10/18 at 09:00 Furosemide (Lasix) 40 mg DAILY PO Last administered on 11/09/18 12:01; Admin Dose 40 MG; Start 11/09/18 at 12:00 Lactulose (Enulose) 20 gm DAILY PRN PO CONSTIPATION; Start 11/09/18 at 12:00 SOPHIA DEJESUS NP Nov 09, 2018 14:29
--- NOTE | 2018-11-09 18:56 | CONS ---
Assessment/Plan Assessment/Plan Assessment/Plan (Daily) 1. Hyponatremia due to Hypervolemic Hyponatremia in setting of acute liver failure 2. Rule out SIADH 3. Acute hepatic failure 4. Biliary colic vs cholecystitis 5. H/o alcohol abuse Plan: continue lasix 40mg po daily and spironolactone 50mg po daily Solu medrol 40mg iV daily , Na chloride tablet 1 gram PO- Increase dose to TID bdominal US iN ED showed The right kidney measures 10.8 cm. There is normal echogenicity of the right kidney. There is no solid right renal mass, hydronephrosis, or calculus. There is a benign 1 cm cyst in the upper to mid right kidney. Thanks for consultation, I will continue to follow up Consultation Date/Type/Reason Admit Date/Time Nov 08, 2018 at 19:37 Date of Consultation: Nov 09, 2018 Type of Consult NEPHROLOGY Reason for Consultation Hyponatremia, acute on chronic renal failure Requesting Provider: SCOTT DOLL NP Date/Time of Note DATE: 11/09/18 TIME: 18:56 Hx of Present Illness 53-year-old male returns to the emergency department after recent admission complaining of generalized weakness over the last 4 weeks. He does report unable to keep food down. He was discharged from the hospital on 11/03/2018. He was treated for decompensated alcoholic cirrhosis. His LFTs were elevatedin ED, BP stable, Na was drown yto 123, BUN/Cr c/w prerenal azotemia Of note during patient's recent admission he had imaging studies are performed including a HIDA scan and an abdominal MRI which were negative for any signs of obstruction, biliary dilatation, or cholecystitis. Carla has been consulted for Hyponatremia Constitutional: febrile, poor po Eyes: no complaints ENT: dysphagia Respiratory: shortness of breath Cardiovascular: no complaints Gastrointestinal: no complaints Genitourinary: no complaints Musculoskeletal: no complaints Skin: no complaints Neurologic: no complaints Endocrine: no complaints Lymphatic: no complaints Psychological: no complaints Immunologic: no complaints Past Medical History Medical History: high cholesterol, hypertension, other Home Meds Active Scripts Sodium Chloride (Sodium Chloride) 1,000 Mg Tablet.dee, 1 GM PO BID for 14 Days, #28 TAB Prov:SCOTT DOLL NP 11/03/18 Pantoprazole* (Protonix*) 40 Mg Tablet.dr, 40 MG PO DAILY, #30 TAB Prov:DOLLALEXA V. PEDICURIST 11/03/18 Prednisone* (Prednisone*) 20 Mg Tab, 40 MG PO DAILY for 28 Days, TAB Prov:DOLLILASCOTT V. PEDICURIST 11/03/18 Thiamine* (Vitamin B-1*) 100 Mg Tablet, 100 MG PO DAILY, #30 TAB Prov:DOLLSCOTT V. PEDICURIST 11/03/18 Lisinopril* (Lisinopril*) 10 Mg Tablet, 10 MG PO BID, #60 TAB Prov:DOLLALEXA V. PEDICURIST 11/03/18 Spironolactone* (Aldactone*) 25 Mg Tablet, 50 MG PO DAILY, #30 TAB Prov:DOLLILASCOTT V. PEDICURIST 11/03/18 Reported Medications Naltrexone Hcl (Trexan) 50 Mg Tab, 50 MG PO DAILY, TAB 11/08/18 Paroxetine Hcl* (Paxil*) 30 Mg Tablet, 30 MG PO HS, TAB 10/26/18 Discontinued Reported Medications Folic Acid (Fa-8) 0.8 Mg Tablet, 0.8 MG PO DAILY, TAB 10/26/18 Spironolactone* (Aldactone*) 25 Mg Tablet, 25 MG PO DAILY, #30 TAB 10/26/18 Spironolactone* (Aldactone*) 25 Mg Tablet, 25 MG PO DAILY, #30 TAB 10/26/18 Lisinopril* (Lisinopril*) 30 Mg Tablet, 30 MG PO DAILY, #30 TAB 10/26/18 Discontinued Scripts Lactulose* (Lactulose*) 20 Gm/30 Ml Solution, 20 GM PO BID for 30 Days, #60 DOSE Prov:DOLLALEXA V. PEDICURIST 11/03/18 Medications Current Medications IV Flush (NS 3 ml) 3 ml PER PROTOCOL IV ; Start 11/08/18 at 20:30 Docusate Sodium (Colace) 100 mg Q12H PRN PO .CONSTIPATION; Start 11/08/18 at 20:30 Bisacodyl (Dulcolax) 5 mg DAILY PRN PO .CONSTIPATION; Start 11/08/18 at 20:30 Ondansetron HCl (Zofran Inj) 4 mg Q4H PRN IV NAUSEA AND/OR VOMITING; Start 11/08/18 at 20:30 Methylprednisolone Sodium Succinate (Solu-Medrol) 40 mg DAILY IV Last administered on 11/09/18 09:23; Admin Dose 40 MG; Start 11/08/18 at 20:30 Lisinopril (Zestril) 10 mg BID PO Last administered on 11/09/18 09:23; Admin Dose 10 MG; Start 11/08/18 at 21:00; Status Hold Thiamine HCl (Vitamin B1) 100 mg DAILY PO Last administered on 11/09/18 09:22; Admin Dose 100 MG; Start 11/09/18 at 09:00 Sodium Chloride (Nacl) 1 gm BID PO Last administered on 11/09/18 09:22; Admin Dose 1 GM; Start 11/08/18 at 22:00 Rifaximin (Xifaxan) 550 mg BID PO Last administered on 11/09/18 09:22; Admin Dose 550 MG; Start 11/09/18 at 00:00 Multivitamins Therapeutic (Theragran) 1 tab DAILY PO Last administered on 11/09/18 09:22; Admin Dose 1 TAB; Start 11/09/18 at 09:00 Folic Acid (Folic Acid) 1 mg DAILY PO Last administered on 11/09/18 09:22; Admin Dose 1 MG; Start 11/09/18 at 09:00 Ibuprofen (Motrin) 400 mg Q6H PRN PO MILD PAIN(1-3) OR TEMP>38C Last administered on 11/09/18 12:00; Admin Dose 400 MG; Start 11/09/18 at 11:30 Spironolactone (Aldactone) 100 mg DAILY PO ; Start 11/10/18 at 09:00 Furosemide (Lasix) 40 mg DAILY PO Last administered on 11/09/18 12:01; Admin Dose 40 MG; Start 11/09/18 at 12:00 Lactulose (Enulose) 20 gm DAILY PRN PO CONSTIPATION; Start 11/09/18 at 12:00 Pantoprazole (Protonix Tab) 40 mg DAILY@06 PO ; Start 11/10/18 at 06:00 Allergies: Coded Allergies: No Known Allergy (Unverified , 11/08/18) Past Surgical History Past Surgical Hx: no surgical history Family History Significant Family History: no pertinent family hx Social History Alcohol Use: sober Smoking Status: Never smoker Drug Use: none Exam/Review of Systems Exam Vitals Vital Signs Date Temp Pulse Resp B/P (MAP) Pulse Ox O2 O2 Flow FiO2 Time Delivery Rate 11/09/18 75 16:33 11/09/18 97.4 20 123/62 94 15:46 (82) 11/08/18 Room Air 20:43 Intake and Output 11/08/18 11/08/18 11/09/18 1515:00 23:00 07:00 IntakeIntake Total 250 ml BalanceBalance 250 ml Exam GEN: no acute distress, + jaundice HEENT: KAYLYN, EOMI, + Jaundice Neck: Supple with full range of motion. No rigidity or meningismus Chest: Nontender Lungs: Clear to auscultation bilaterally no crackles rales or wheezing Heart: Normal S1-S2, Regular rhythm and rate. No murmur, S3, or S4 Abdomen: Soft , diffusely tender to palpation, distended, bowel sounds are present. Extremities: Normal to inspection, no edema no cyanosis, skin yellow Results Result Diagram: 11/09/18 0644 11/09/18 0644 Results 24hrs Laboratory Tests Test 11/09/18 06:44 White Blood Count 16.8 H Red Blood Count 2.93 L Hemoglobin 10.4 L Hematocrit 29.4 L Mean Corpuscular Volume 100.3 Mean Corpuscular Hemoglobin 35.5 H Mean Corpuscular Hemoglobin Concent 35.4 Red Cell Distribution Width 19.9 H Platelet Count 89 L Mean Platelet Volume 10.4 Immature Granulocytes % 4.400 H Neutrophils % 87.8 H Lymphocytes % 4.5 L Monocytes % 3.0 Eosinophils % 0.1 Basophils % 0.2 Nucleated Red Blood Cells % 0.0 Immature Granulocytes # 0.740 H Neutrophils # 14.7 H Lymphocytes # 0.8 Monocytes # 0.5 Eosinophils # 0.0 Basophils # 0.0 Nucleated Red Blood Cells # 0.0 Prothrombin Time 24.6 H Prothrombin Time Ratio 1.9 INR International Normalized Ratio 2.21 Sodium Level 124 L Potassium Level 5.3 H Chloride Level 94 L Carbon Dioxide Level 21 Anion Gap 9 Blood Urea Nitrogen 26 H Creatinine 0.69 Est Glomerular Filtrat Rate mL/min > 60 Glucose Level 119 Calcium Level 8.9 Total Bilirubin 23.5 H Direct Bilirubin 19.20 *H Indirect Bilirubin 4.3 H Aspartate Amino Transf (AST/SGOT) 472 H Alanine Aminotransferase (ALT/SGPT) 345 H Alkaline Phosphatase 390 H Total Protein 7.5 Albumin 2.9 L Globulin 4.60 H Albumin/Globulin Ratio 0.63 Medications Medication Current Medications IV Flush (NS 3 ml) 3 ml PER PROTOCOL IV ; Start 11/08/18 at 20:30 Docusate Sodium (Colace) 100 mg Q12H PRN PO .CONSTIPATION; Start 11/08/18 at 20:30 Bisacodyl (Dulcolax) 5 mg DAILY PRN PO .CONSTIPATION; Start 11/08/18 at 20:30 Ondansetron HCl (Zofran Inj) 4 mg Q4H PRN IV NAUSEA AND/OR VOMITING; Start 11/08/18 at 20:30 Methylprednisolone Sodium Succinate (Solu-Medrol) 40 mg DAILY IV Last administered on 11/09/18 09:23; Admin Dose 40 MG; Start 11/08/18 at 20:30 Lisinopril (Zestril) 10 mg BID PO Last administered on 11/09/18 09:; Admin Dose 10 MG; Start 11/08/18 at 21:00; Status Hold Thiamine HCl (Vitamin B1) 100 mg DAILY PO Last administered on 11/09/18 09:22; Admin Dose 100 MG; Start 11/09/18 at 09:00 Sodium Chloride (Nacl) 1 gm BID PO Last administered on 11/09/18:22; Admin Dose 1 GM; Start 11/08/18 at 22:00 Rifaximin (Xifaxan) 550 mg BID PO Last administered on 11/09/18 09:22; Admin Dose 550 MG; Start 11/09/18 at 00:00 Multivitamins Therapeutic (Theragran) 1 tab DAILY PO Last administered on 11/09/18 09:22; Admin Dose 1 TAB; Start 11/09/18 at 09:00 Folic Acid (Folic Acid) 1 mg DAILY PO Last administered on 11/09/18 09:22; Admin Dose 1 MG; Start 11/09/18 at 09:00 Ibuprofen (Motrin) 400 mg Q6H PRN PO MILD PAIN(1-3) OR TEMP>38C Last administered on 11/09/18at 12:00; Admin Dose 400 MG; Start 11/09/18 at 11:30 Spironolactone (Aldactone) 100 mg DAILY PO ; Start 11/10/18 at 09:00 Furosemide (Lasix) 40 mg DAILY PO Last administered on 11/09/18at 12:01; Admin Dose 40 MG; Start 11/09/18 at 12:00 Lactulose (Enulose) 20 gm DAILY PRN PO CONSTIPATION; Start 11/09/18 at 12:00 Pantoprazole (Protonix Tab) 40 mg DAILY@06 PO ; Start 11/10/18 at 06:00 BUCK CARO MD Nov 09, 2018 18:56
[2018-11-10] VITALS (10 sets, daily range): BP systolic 110–133; BP diastolic 55–65; PULSE 69–79; RESP 18–20
[2018-11-10] MEDS: PANTOPRAZOLE (EC) 40 MG TAB PO SCH (06:43)
[2018-11-10] MEDS: METHYLPREDNISOLONE 40 MG INJ IV SCH (09:30)
[2018-11-10] MEDS: SODIUM CHLORIDE 1 GM TAB PO SCH ×3 (09:30→20:27)
[2018-11-10] MEDS: RIFAXIMIN 550 MG TAB PO SCH ×2 (09:30→20:27)
[2018-11-10] MEDS: THIAMINE 100 MG TAB PO SCH (09:30)
[2018-11-10] MEDS: FUROSEMIDE 40 MG TAB PO SCH (09:31)
[2018-11-10] MEDS: SPIRONOLACTONE 50 MG TAB PO SCH (09:31)
[2018-11-10] MEDS: FOLIC ACID 1 MG TAB PO SCH (09:31)
[2018-11-10] MEDS: MULTIVITAMINS THERAPEUTIC TAB PO SCH (09:31)
[2018-11-10] MEDS: IBUPROFEN 400 MG TAB PO PRN (09:41)
--- NOTE | 2018-11-10 10:35 | CONS ---
Assessment/Plan Assessment/Plan Assessment/Plan (Daily) 1. Hyponatremia (122 today) due to Hypervolemic Hyponatremia in setting of acute liver failure 2. Rule out SIADH 3. Acute hepatic failure 4. Biliary colic vs cholecystitis 5. H/o alcohol abuse Plan: continue lasix 40mg po daily and spironolactone 50mg po daily Solu medrol 40mg iV daily , Na chloride tablet 1 gram PO- Increase dose to TID Abdominal US in ED showed The right kidney measures 10.8 cm. There is normal echogenicity of the right kidney. There is no solid right renal mass, hydr onephrosis, or calculus. There is a benign 1 cm cyst in the upper to mid right kidney. Thanks for consultation, will continue to follow up Patent seen in collaboration with Dr Rommel Baumann. dw staff Consultation Date/Type/Reason Admit Date/Time Nov 08, 2018 at 19:37 Initial Consult Date 11/09/18 Type of Consult Nephrology Reason for Consultation Hyponatremia Requesting Provider: SCOTT DOLL NP Date/Time of Note DATE: 11/10/18 TIME: 10:34 24 HR Interval Summary Free Text/Dictation -resting in bed;seems comfortable - Na 122 today - Direct Sachin- elevated 19.30 - no new issues reported last night dw staff Detailed Summary Eyes: no complaints ENT: no complaints Respiratory: no complaints Gastrointestinal: pain Genitourinary: no complaints Musculoskeletal: no complaints Skin: no complaints, other Neurologic: no complaints Exam/Review of Systems Exam Vitals Vital Signs Date Temp Pulse Resp B/P (MAP) Pulse Ox O2 O2 Flow FiO2 Time Delivery Rate 11/10/18 79 08:06 11/10/18 97.5 20 119/57 94 Room Air 07:16 (77) Intake and Output 11/09/18 11/09/18 11/10/18 1515:00 23:00 07:00 IntakeIntake Total 752 ml 850 ml BalanceBalance 752 ml 850 ml Constitutional: alert, well developed, obese Eyes: nl lids, icteric ENMT: nl external ears & nose Neck: non-tender Respiratory: clear to auscultation Cardiovascular: nl pulses, other (s1s2) Gastrointestinal: soft, tender (RUQ tenderness) Musculoskeletal: nl extremities to inspection Extremities: normal pulses 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: nl speech, other (alert/responsive) Skin: other (jaundiced) Lymph: nontender Results Result Diagram: 11/10/18 0640 11/10/18 0640 Results 24hrs Laboratory Tests Test 11/10/18 06:40 White Blood Count 19.7 H Red Blood Count 2.95 L Hemoglobin 10.5 L Hematocrit 29.3 L Mean Corpuscular Volume 99.3 Mean Corpuscular Hemoglobin 35.6 H Mean Corpuscular Hemoglobin Concent 35.8 Red Cell Distribution Width 19.9 H Platelet Count 99 L Mean Platelet Volume 10.6 H Immature Granulocytes % 5.100 H Neutrophils % 83.4 H Lymphocytes % 4.1 L Monocytes % 7.2 Eosinophils % 0.0 Basophils % 0.2 Nucleated Red Blood Cells % 0.0 Immature Granulocytes # 1.000 H Neutrophils # 16.4 H Lymphocytes # 0.8 Monocytes # 1.4 H Eosinophils # 0.0 Basophils # 0.0 Nucleated Red Blood Cells # 0.0 Prothrombin Time 25.3 H Prothrombin Time Ratio 2.0 INR International Normalized Ratio 2.29 Sodium Level 122 L Potassium Level 5.0 Chloride Level 88 L Carbon Dioxide Level 23 Anion Gap 11 Blood Urea Nitrogen 29 H Creatinine 0.80 Est Glomerular Filtrat Rate mL/min > 60 Glucose Level 91 Calcium Level 8.6 Total Bilirubin 23.4 H Direct Bilirubin 19.30 *H Indirect Bilirubin 4.1 H Aspartate Amino Transf (AST/SGOT) 477 H Alanine Aminotransferase (ALT/SGPT) 363 H Alkaline Phosphatase 316 H Total Protein 7.0 Albumin 2.7 L Globulin 4.30 H Albumin/Globulin Ratio 0.62 Medications Medication Current Medications IV Flush (NS 3 ml) 3 ml PER PROTOCOL IV ; Start 11/08/18 at 20:30 Docusate Sodium (Colace) 100 mg Q12H PRN PO .CONSTIPATION; Start 11/08/18 at 20:30 Bisacodyl (Dulcolax) 5 mg DAILY PRN PO .CONSTIPATION; Start 11/08/18 at 20:30 Ondansetron HCl (Zofran Inj) 4 mg Q4H PRN IV NAUSEA AND/OR VOMITING; Start 11/08/18 at 20:30 Methylprednisolone Sodium Succinate (Solu-Medrol) 40 mg DAILY IV Last administered on 11/10/18at 09:30; Admin Dose 40 MG; Start 11/08/18 at 20:30 Lisinopril (Zestril) 10 mg BID PO Last administered on 11/09/18 09:23; Admin Dose 10 MG; Start 11/08/18 at 21:00; Status Hold Thiamine HCl (Vitamin B1) 100 mg DAILY PO Last administered on 11/10/18 09:30; Admin Dose 100 MG; Start 11/09/18 at 09:00 Rifaximin (Xifaxan) 550 mg BID PO Last administered on 11/10/18 09:30; Admin Dose 550 MG; Start 11/09/18 at 00:00 Multivitamins Therapeutic (Theragran) 1 tab DAILY PO Last administered on 11/10/18 09:31; Admin Dose 1 TAB; Start 11/09/18 at 09:00 Folic Acid (Folic Acid) 1 mg DAILY PO Last administered on 11/10/18 09:31; Admin Dose 1 MG; Start 11/09/18 at 09:00 Ibuprofen (Motrin) 400 mg Q6H PRN PO MILD PAIN(1-3) OR TEMP>38C Last administered on 11/10/18 09:41; Admin Dose 400 MG; Start 11/09/18 at 11:30 Spironolactone (Aldactone) 100 mg DAILY PO Last administered on 11/10/18 09:31; Admin Dose 100 MG; Start 11/10/18 at 09:00 Furosemide (Lasix) 40 mg DAILY PO Last administered on 11/10/18 09:31; Admin Dose 40 MG; Start 11/09/18 at 12:00 Lactulose (Enulose) 20 gm DAILY PRN PO CONSTIPATION; Start 11/09/18 at 12:00 Pantoprazole (Protonix Tab) 40 mg DAILY@06 PO Last administered on 11/10/18 06:43; Admin Dose 40 MG; Start 11/10/18 at 06:00 Sodium Chloride (Nacl) 1 gm TID PO Last administered on 11/10/18 09:30; Admin Dose 1 GM; Start 11/09/18 at 21:00 CORTNEY DANIELS Nov 10, 2018 10:35
--- NOTE | 2018-11-10 10:52 | PN ---
Date/Time of Note Date/Time of Note DATE: 11/10/18 TIME: 10:44 Assessment/Plan VTE Prophylaxis Risk score (from Ns)>0 risk: 3 SCD applied (from [facility] [place] Yes Pharmacological prophylaxis: NA/contraindicated Pharm contraindication: blood coag disorder, liver dx Lines/Catheters IV [facility]from [facility] Saline Lock Urinary Cath still in place: No Assessment/Plan Hospital Course SUBJECTIVE: Overall, patient with significant improvement in mental status. He is alert and oriented. No nausea, abdominal pain or other discomfort. OBJECTIVE: Vital signs-see below PHYSICAL EXAM: Constitutional: obese/Jaundiced male, drowsy/mildly confused. HEENT: Head atraumatic and normocephalic. Eyes: Extraocular muscles intact.Icteric sclerae. Pupils equal bilaterally, reactive to light. NECK: Supple without lymph node. CHEST: Clear and good breath sounds equally. No wheezing. No rhonchi. HEART: S1, S2. Regular rate and rhythm. ABDOMEN:Protuberant. Soft, nontender. Bowel sounds were present. EXTREMITIES: Full range of motion in all the extremities. No cyanosis, clubbing or edema. NEUROLOGIC: Alert and oriented x3. No focal deficit. No sensory deficit. PSYCHOSOCIAL: In a good mood. No signs of depression. INTEGUMENTARY: Jaundiced+ ASSESSMENT AND PLAN: 53-year-old morbidly obese male with alcoholic liver cirrhosis, hypertension, treated with 1 month of worsening jaundice, here with worsening mental status/lethargy, found to have worsening liver function. 1.Decompensated Alcoholic Liver Cirrhosis with portal hypertension/splenomegaly/ coagulopathy/mild volume ascites -cont. Lasix, Aldactone -Last drink was 2 weeks ago, emphasized on not to restart drinking and to have a tertiary care follow-up as outpatient once he prove a sober for at least 6 months to consider him for f/u. -GI [id number] to arrange this for oupt 2. Hepatic encephalopathy -Mentation back to baseline. -cont.Lactulose, rifaximin 3. Alcoholic hepatitis. -Bilirubinemia noted. Management per GI team -On steroid treatment 4. Alcohol abuse - Counseled on cessation. 5.Hypertension -Adequate control -Continue current cirrhosis treatment regimen which also treat his blood pressu re. 6.chronic hyponatremia 2/2 alcoholism/liver disease -Continue diuretics. Fluid restriction. 7.Morbid Obesity -life style changes advised 8. Anemia alcoholic liver disease -Stable H&H. Continue to monitor. 9. Leukocytosis, likely secondary to steroids. -No evidence to suggest infection. Patient was recommended to continue steroid for a total 28 days and he is on his 3RD week. prophylaxis:scds/ppi diet: regular code:hubert disp:cont.current management. Spoke with patient's daughter Daniela in detail and patient. Emphasized on quit drinking alcohol. Likely DC planning in next 24 hours if remains symptomatic. Case management to help patient with outpatient liver clinic/GI follow-up. patient was seen in collaboration with Result Diagram: 11/10/18 0640 11/10/18 0640 Results 24hrs Laboratory Tests Test 11/10/18 06:40 White Blood Count 19.7 H Red Blood Count 2.95 L Hemoglobin 10.5 L Hematocrit 29.3 L Mean Corpuscular Volume 99.3 Mean Corpuscular Hemoglobin 35.6 H Mean Corpuscular Hemoglobin Concent 35.8 Red Cell Distribution Width 19.9 H Platelet Count 99 L Mean Platelet Volume 10.6 H Immature Granulocytes % 5.100 H Neutrophils % 83.4 H Lymphocytes % 4.1 L Monocytes % 7.2 Eosinophils % 0.0 Basophils % 0.2 Nucleated Red Blood Cells % 0.0 Immature Granulocytes # 1.000 H Neutrophils # 16.4 H Lymphocytes # 0.8 Monocytes # 1.4 H Eosinophils # 0.0 Basophils # 0.0 Nucleated Red Blood Cells # 0.0 Prothrombin Time 25.3 H Prothrombin Time Ratio 2.0 INR International Normalized Ratio 2.29 Sodium Level 122 L Potassium Level 5.0 Chloride Level 88 L Carbon Dioxide Level 23 Anion Gap 11 Blood Urea Nitrogen 29 H Creatinine 0.80 Est Glomerular Filtrat Rate mL/min > 60 Glucose Level 91 Calcium Level 8.6 Total Bilirubin 23.4 H Direct Bilirubin 19.30 *H Indirect Bilirubin 4.1 H Aspartate Amino Transf (AST/SGOT) 477 H Alanine Aminotransferase (ALT/SGPT) 363 H Alkaline Phosphatase 316 H Total Protein 7.0 Albumin 2.7 L Globulin 4.30 H Albumin/Globulin Ratio 0.62 Exam/Review of Systems Exam Vitals Vital Signs Date Temp Pulse Resp B/P (MAP) Pulse Ox O2 O2 Flow FiO2 Time Delivery Rate 11/10/18 79 08:06 11/10/18 97.5 20 119/57 94 Room Air 07:16 (77) Intake and Output 11/09/18 11/09/18 11/10/18 1515:00 23:00 07:00 IntakeIntake Total 752 ml 850 ml BalanceBalance 752 ml 850 ml Results Results 24hrs Laboratory Tests Test 11/10/18 06:40 White Blood Count 19.7 H Red Blood Count 2.95 L Hemoglobin 10.5 L Hematocrit 29.3 L Mean Corpuscular Volume 99.3 Mean Corpuscular Hemoglobin 35.6 H Mean Corpuscular Hemoglobin Concent 35.8 Red Cell Distribution Width 19.9 H Platelet Count 99 L Mean Platelet Volume 10.6 H Immature Granulocytes % 5.100 H Neutrophils % 83.4 H Lymphocytes % 4.1 L Monocytes % 7.2 Eosinophils % 0.0 Basophils % 0.2 Nucleated Red Blood Cells % 0.0 Immature Granulocytes # 1.000 H Neutrophils # 16.4 H Lymphocytes # 0.8 Monocytes # 1.4 H Eosinophils # 0.0 Basophils # 0.0 Nucleated Red Blood Cells # 0.0 Prothrombin Time 25.3 H Prothrombin Time Ratio 2.0 INR International Normalized Ratio 2.29 Sodium Level 122 L Potassium Level 5.0 Chloride Level 88 L Carbon Dioxide Level 23 Anion Gap 11 Blood Urea Nitrogen 29 H Creatinine 0.80 Est Glomerular Filtrat Rate mL/min > 60 Glucose Level 91 Calcium Level 8.6 Total Bilirubin 23.4 H Direct Bilirubin 19.30 *H Indirect Bilirubin 4.1 H Aspartate Amino Transf (AST/SGOT) 477 H Alanine Aminotransferase (ALT/SGPT) 363 H Alkaline Phosphatase 316 H Total Protein 7.0 Albumin 2.7 L Globulin 4.30 H Albumin/Globulin Ratio 0.62 Medications Medication Current Medications IV Flush (NS 3 ml) 3 ml PER PROTOCOL IV ; Start 11/08/18 at 20:30 Docusate Sodium (Colace) 100 mg Q12H PRN PO .CONSTIPATION; Start 11/08/18 at 20:30 Bisacodyl (Dulcolax) 5 mg DAILY PRN PO .CONSTIPATION; Start 11/08/18 at 20:30 Ondansetron HCl (Zofran Inj) 4 mg Q4H PRN IV NAUSEA AND/OR VOMITING; Start 11/08/18 at 20:30 Methylprednisolone Sodium Succinate (Solu-Medrol) 40 mg DAILY IV Last administered on 11/10/18 09:30; Admin Dose 40 MG; Start 11/08/18 at 20:30 Lisinopril (Zestril) 10 mg BID PO Last administered on 11/09/18 09:23; Admin Dose 10 MG; Start 11/08/18 at 21:00; Status Hold Thiamine HCl (Vitamin B1) 100 mg DAILY PO Last administered on 11/10/18 09:30; Admin Dose 100 MG; Start 11/09/18 at 09:00 Rifaximin (Xifaxan) 550 mg BID PO Last administered on 11/10/18 09:30; Admin Dose 550 MG; Start 11/09/18 at 00:00 Multivitamins Therapeutic (Theragran) 1 tab DAILY PO Last administered on 11/10/18 09:31; Admin Dose 1 TAB; Start 11/09/18 at 09:00 Folic Acid (Folic Acid) 1 mg DAILY PO Last administered on 11/10/18 09:31; Admin Dose 1 MG; Start 11/09/18 at 09:00 Ibuprofen (Motrin) 400 mg Q6H PRN PO MILD PAIN(1-3) OR TEMP>38C Last administered on 11/10/18 09:41; Admin Dose 400 MG; Start 11/09/18 at 11:30 Spironolactone (Aldactone) 100 mg DAILY PO Last administered on 11/10/18 09:31; Admin Dose 100 MG; Start 11/10/18 at 09:00 Furosemide (Lasix) 40 mg DAILY PO Last administered on 11/10/18 09:31; Admin Dose 40 MG; Start 11/09/18 at 12:00 Lactulose (Enulose) 20 gm DAILY PRN PO CONSTIPATION; Start 11/09/18 at 12:00 Pantoprazole (Protonix Tab) 40 mg DAILY@06 PO Last administered on 11/10/18 06:43; Admin Dose 40 MG; Start 11/10/18 at 06:00 Sodium Chloride (Nacl) 1 gm TID PO Last administered on 11/10/18 09:30; Admin Dose 1 GM; Start 11/09/18 at 21:00 SCOTT DOLL NP Nov 10, 2018 10:52
--- NOTE | 2018-11-10 15:19 | PN ---
Date/Time of Note Date/Time of Note DATE: 11/10/18 TIME: 15:12 Assessment/Plan VTE Prophylaxis Risk score (from Ns)>0 risk: 3 SCD applied (from Ns): Yes Pharmacological prophylaxis: NA/contraindicated Pharm contraindication: liver dx Lines/Catheters [facility] [place] Assessment/Plan Assessment/Plan Assessment: Decompensated liver cirrhosis Alcoholic hepatitis Hepatic encephalopathy Leukocytosis -patient is on steroids Coagulopathy Hematochezia Hematuria Thrombocytopenia Transaminitis Pancreatitis -lipase 325 Hyperbilirubinemia Obesity Hypertension No history of EGD or colonoscopy Plan: Check lipase with a.m. labs Advance diet to full liquid Continue rifaximin/lactulose Continue methylprednisolone Continue Aldactone Vitamin K 10 mg x1 Monitor LFTs If patient improves recommend EGD for variceal screening and colonoscopy for CRC screening and hematochezia Patient seen in collaboration with Dr. Nuñez Subjective: Patient appears more lethargic today. No bowel movement overnight. Will increase lactulose. Bilirubin is slightly higher today. Liver function test is trending up. Patient is tolerating clear liquid diet well. Denies abdominal p ain. Will advance to full liquid diet. Exam PHYSICAL EXAMINATION: GENERAL: Well developed, well nourished, obese, lethargic & oriented x 3, in no acute distress SKIN: No lesions, profound jaundice, no evidence of bleeding diathesis LYMPHATIC: No palpable lymphadenopathy. HEAD: Normocephalic, atraumatic, no tenderness. EYES: Pupils equal reactive to light and accommodation, full extraocular movements, sclera-icteric, no discharge. EARS/NOSE AND THROAT: Ears normal, nose normal, oropharynx normal, oral membranes well hydrated without lesions. NECK: Supple, no masses, thyroid normal, JVP within normal limits, carotids normal without bruits. CHEST: Inspection within normal limits. CARDIOVASCULAR: Heart: Regular rate and rhythm, no murmurs, gallops or rubs. Peripheral pulses present within normal limits, no cyanosis, clubbing or edemas. No pulsatile abdominal mass RESPIRATORY: Lungs clear to auscultation and percussion, no wheezing, no rubs GASTROINTESTINAL AND LIVER: Abdomen: Soft, generalized tenderness, non- distended, no hernias, no masses, no organomegaly, +ascites, no guarding, no rebound tenderness, normoactive bowel sounds. Rectal: Deferred. GENITOURINARY: [Male genitalia within normal limits. EXTREMITIES: No cyanosis, clubbing or edema. Result Diagram: 11/10/18 0640 11/10/18 0640 Results 24hrs Laboratory Tests Test 11/10/18 06:40 White Blood Count 19.7 H Red Blood Count 2.95 L Hemoglobin 10.5 L Hematocrit 29.3 L Mean Corpuscular Volume 99.3 Mean Corpuscular Hemoglobin 35.6 H Mean Corpuscular Hemoglobin Concent 35.8 Red Cell Distribution Width 19.9 H Platelet Count 99 L Mean Platelet Volume 10.6 H Immature Granulocytes % 5.100 H Neutrophils % 83.4 H Lymphocytes % 4.1 L Monocytes % 7.2 Eosinophils % 0.0 Basophils % 0.2 Nucleated Red Blood Cells % 0.0 Immature Granulocytes # 1.000 H Neutrophils # 16.4 H Lymphocytes # 0.8 Monocytes # 1.4 H Eosinophils # 0.0 Basophils # 0.0 Nucleated Red Blood Cells # 0.0 Prothrombin Time 25.3 H Prothrombin Time Ratio 2.0 INR International Normalized Ratio 2.29 Sodium Level 122 L Potassium Level 5.0 Chloride Level 88 L Carbon Dioxide Level 23 Anion Gap 11 Blood Urea Nitrogen 29 H Creatinine 0.80 Est Glomerular Filtrat Rate mL/min > 60 Glucose Level 91 Calcium Level 8.6 Total Bilirubin 23.4 H Direct Bilirubin 19.30 *H Indirect Bilirubin 4.1 H Aspartate Amino Transf (AST/SGOT) 477 H Alanine Aminotransferase (ALT/SGPT) 363 H Alkaline Phosphatase 316 H Total Protein 7.0 Albumin 2.7 L Globulin 4.30 H Albumin/Globulin Ratio 0.62 CC: LASHON NUÑEZ MD ; Exam/Review of Systems Exam Vitals Vital Signs Date Temp Pulse Resp B/P (MAP) Pulse Ox O2 O2 Flow FiO2 Time Delivery Rate 11/10/18 74 13:15 11/10/18 97.4 20 117/59 96 Room Air 11:03 (78) Intake and Output 11/09/18 11/09/18 11/10/18 1515:00 23:00 07:00 IntakeIntake Total 752 ml 850 ml BalanceBalance 752 ml 850 ml Results Results 24hrs Laboratory Tests Test 11/10/18 06:40 White Blood Count 19.7 H Red Blood Count 2.95 L Hemoglobin 10.5 L Hematocrit 29.3 L Mean Corpuscular Volume 99.3 Mean Corpuscular Hemoglobin 35.6 H Mean Corpuscular Hemoglobin Concent 35.8 Red Cell Distribution Width 19.9 H Platelet Count 99 L Mean Platelet Volume 10.6 H Immature Granulocytes % 5.100 H Neutrophils % 83.4 H Lymphocytes % 4.1 L Monocytes % 7.2 Eosinophils % 0.0 Basophils % 0.2 Nucleated Red Blood Cells % 0.0 Immature Granulocytes # 1.000 H Neutrophils # 16.4 H Lymphocytes # 0.8 Monocytes # 1.4 H Eosinophils # 0.0 Basophils # 0.0 Nucleated Red Blood Cells # 0.0 Prothrombin Time 25.3 H Prothrombin Time Ratio 2.0 INR International Normalized Ratio 2.29 Sodium Level 122 L Potassium Level 5.0 Chloride Level 88 L Carbon Dioxide Level 23 Anion Gap 11 Blood Urea Nitrogen 29 H Creatinine 0.80 Est Glomerular Filtrat Rate mL/min > 60 Glucose Level 91 Calcium Level 8.6 Total Bilirubin 23.4 H Direct Bilirubin 19.30 *H Indirect Bilirubin 4.1 H Aspartate Amino Transf (AST/SGOT) 477 H Alanine Aminotransferase (ALT/SGPT) 363 H Alkaline Phosphatase 316 H Total Protein 7.0 Albumin 2.7 L Globulin 4.30 H Albumin/Globulin Ratio 0.62 Medications Medication Current Medications IV Flush (NS 3 ml) 3 ml PER PROTOCOL IV ; Start 11/08/18 at 20:30 Docusate Sodium (Colace) 100 mg Q12H PRN PO .CONSTIPATION; Start 11/08/18 at 20:30 Bisacodyl (Dulcolax) 5 mg DAILY PRN PO .CONSTIPATION; Start 11/08/18 at 20:30 Ondansetron HCl (Zofran Inj) 4 mg Q4H PRN IV NAUSEA AND/OR VOMITING; Start 11/08/18 at 20:30 Methylprednisolone Sodium Succinate (Solu-Medrol) 40 mg DAILY IV Last administered on 11/10/18at 09:30; Admin Dose 40 MG; Start 11/08/18 at 20:30 Lisinopril (Zestril) 10 mg BID PO Last administered on 11/09/18at 09:23; Admin Dose 10 MG; Start 11/08/18 at 21:00; Status Hold Thiamine HCl (Vitamin B1) 100 mg DAILY PO Last administered on 11/10/18at 09:30; Admin Dose 100 MG; Start 11/09/18 at 09:00 Rifaximin (Xifaxan) 550 mg BID PO Last administered on 11/10/18 09:30; Admin Dose 550 MG; Start 11/09/18 at 00:00 Multivitamins Therapeutic (Theragran) 1 tab DAILY PO Last administered on 11/10/18 09:31; Admin Dose 1 TAB; Start 11/09/18 at 09:00 Folic Acid (Folic Acid) 1 mg DAILY PO Last administered on 11/10/18 09:31; Admin Dose 1 MG; Start 11/09/18 at 09:00 Ibuprofen (Motrin) 400 mg Q6H PRN PO MILD PAIN(1-3) OR TEMP>38C Last a dministered on 11/10/18 09:41; Admin Dose 400 MG; Start 11/09/18 at 11:30 Spironolactone (Aldactone) 100 mg DAILY PO Last administered on 11/10/18 09:31; Admin Dose 100 MG; Start 11/10/18 at 09:00 Furosemide (Lasix) 40 mg DAILY PO Last administered on 11/10/18 09:31; Admin Dose 40 MG; Start 11/09/18 at 12:00 Lactulose (Enulose) 20 gm DAILY PRN PO CONSTIPATION; Start 11/09/18 at 12:00 Pantoprazole (Protonix Tab) 40 mg DAILY@06 PO Last administered on 11/10/18 06:43; Admin Dose 40 MG; Start 11/10/18 at 06:00 Sodium Chloride (Nacl) 1 gm TID PO Last administered on 11/10/18 12:31; Admin Dose 1 GM; Start 11/09/18 at 21:00 SOPHIA DEJESUS NP Nov 10, 2018 15:19
[2018-11-10] MEDS ORDERED: PHYTONADIONE 10 MG in DEXTROSE 5% 50 ML IVPB ONE (17:00)
[2018-11-10] MEDS: LACTULOSE 30ML CUP PO SCH (17:31)
[2018-11-11] VITALS (11 sets, daily range): BP systolic 119–142; BP diastolic 59–78; PULSE 67–86; RESP 18–20
[2018-11-11] MEDS: LACTULOSE 30ML CUP PO SCH ×4 (05:32→17:58)
[2018-11-11] MEDS: PANTOPRAZOLE (EC) 40 MG TAB PO SCH (05:32)
[2018-11-11] MEDS: RIFAXIMIN 550 MG TAB PO SCH ×2 (08:47→21:26)
[2018-11-11] MEDS: SODIUM CHLORIDE 1 GM TAB PO SCH ×3 (08:47→21:26)
[2018-11-11] MEDS: MULTIVITAMINS THERAPEUTIC TAB PO SCH (08:47)
[2018-11-11] MEDS: THIAMINE 100 MG TAB PO SCH (08:48)
[2018-11-11] MEDS: SPIRONOLACTONE 50 MG TAB PO SCH (08:48)
[2018-11-11] MEDS: FOLIC ACID 1 MG TAB PO SCH (08:48)
[2018-11-11] MEDS: METHYLPREDNISOLONE 40 MG INJ IV SCH (08:48)
[2018-11-11] MEDS: FUROSEMIDE 40 MG TAB PO SCH (08:48)
--- NOTE | 2018-11-11 12:22 | CONS ---
Assessment/Plan Assessment/Plan Assessment/Plan (Daily) 1. Hyponatremia (123 today) due to Hypervolemic Hyponatremia in setting of acute liver failure 2. Rule out SIADH 3. Acute hepatic failure 4. Biliary colic vs cholecystitis 5. H/o alcohol abuse Plan: continue lasix 40mg po daily and spironolactone 50mg po daily Solu medrol 40mg iV daily , Na chloride tablet 1 gram PO- Increase dose to TID Abdominal US in ED showed The right kidney measures 10.8 cm. There is normal echogenicity of the right kidney. There is no solid right renal mass, hydr onephrosis, or calculus. There is a benign 1 cm cyst in the upper to mid right kidney. Thanks for consultation, will continue to follow up Patent seen in collaboration with Dr Rommel Baumann. dw staff Consultation Date/Type/Reason Admit Date/Time Nov 08, 2018 at 7:37 pm Initial Consult Date 11/09/18 Type of Consult NEPHROLOGY Reason for Consultation HYPONATREMIA Requesting Provider: SCOTT DOLL NP Date/Time of Note DATE: 11/11/18 TIME: 12:21 24 HR Interval Summary Free Text/Dictation -NAD -resting in bed;seems comfortable - Na 123 today - Direct Sachin- elevated 19.30 - no new issues reported last night dw staff Detailed Summary Eyes: no complaints ENT: no complaints Respiratory: no complaints Cardiovascular: no complaints Gastrointestinal: pain Genitourinary: no complaints Musculoskeletal: no complaints Skin: no complaints Neurologic: no complaints Endocrine: no complaints Psychological: nl mood/affect Exam/Review of Systems Exam Vitals Vital Signs Date Temp Pulse Resp B/P (MAP) Pulse Ox O2 O2 Flow FiO2 Time Delivery Rate 11/11/18 97.3 77 20 129/65 96 Room Air 11:29 (86) Intake and Output 11/10/18 11/10/18 11/11/18 1515:00 23:00 07:00 IntakeIntake Total 960 ml 300 ml OutputOutput Total 1100 ml BalanceBalance -140 ml 300 ml Constitutional: alert, well developed, obese Psych: nl mood/affect Head: atraumatic Eyes: nl lids, icteric ENMT: nl external ears & nose Neck: non-tender Cardiovascular: nl pulses, other (S1S2) Gastrointestinal: soft, tender (RUQ ) Musculoskeletal: nl extremities to inspection Extremities: normal pulses 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: nl speech, other (alertresponsive) Skin: other (jaundiced) Lymph: nontender Results Result Diagram: 11/11/18 0629 11/11/18 0629 Results 24hrs Laboratory Tests Test 11/11/18 06:29 White Blood Count 21.0 H Red Blood Count 3.30 L Hemoglobin 11.8 L Hematocrit 33.0 L Mean Corpuscular Volume 100.0 Mean Corpuscular Hemoglobin 35.8 H Mean Corpuscular Hemoglobin Concent 35.8 Red Cell Distribution Width 19.3 H Platelet Count 107 L Mean Platelet Volume 10.7 H Immature Granulocytes % 2.900 H Neutrophils % 80.0 H Lymphocytes % 9.0 L Monocytes % 7.8 Eosinophils % 0.0 Basophils % 0.3 Nucleated Red Blood Cells % 0.1 H Immature Granulocytes # 0.600 H Neutrophils # 16.9 H Lymphocytes # 1.9 Monocytes # 1.6 H Eosinophils # 0.0 Basophils # 0.1 Nucleated Red Blood Cells # 0.0 Prothrombin Time 23.3 H Prothrombin Time Ratio 1.8 INR International Normalized Ratio 2.06 Sodium Level 123 L Potassium Level 5.0 Chloride Level 86 L Carbon Dioxide Level 26 Anion Gap 11 Blood Urea Nitrogen 31 H Creatinine 0.86 Est Glomerular Filtrat Rate mL/min > 60 Glucose Level 98 Calcium Level 9.0 Total Bilirubin 26.8 H Direct Bilirubin 22.20 *H Indirect Bilirubin 4.6 H Aspartate Amino Transf (AST/SGOT) 546 H Alanine Aminotransferase (ALT/SGPT) 439 H Alkaline Phosphatase 335 H Total Protein 7.9 Albumin 3.1 L Globulin 4.80 H Albumin/Globulin Ratio 0.64 Lipase 773 H Medications Medication Current Medications IV Flush (NS 3 ml) 3 ml PER PROTOCOL IV ; Start 11/08/18 at 20:30 Docusate Sodium (Colace) 100 mg Q12H PRN PO .CONSTIPATION; Start 11/08/18 at 20:30 Bisacodyl (Dulcolax) 5 mg DAILY PRN PO .CONSTIPATION; Start 11/08/18 at 20:30 Ondansetron HCl (Zofran Inj) 4 mg Q4H PRN IV NAUSEA AND/OR VOMITING; Start 11/08/18 at 20:30 Methylprednisolone Sodium Succinate (Solu-Medrol) 40 mg DAILY IV Last administered on 11/11/18at 08:48; Admin Dose 40 MG; Start 11/08/18 at 20:30 Lisinopril (Zestril) 10 mg BID PO Last administered on 11/09/18 09:23; Admin Dose 10 MG; Start 11/08/18 at 21:00; Status Hold Thiamine HCl (Vitamin B1) 100 mg DAILY PO Last administered on 11/11/18 08:48; Admin Dose 100 MG; Start 11/09/18 at 09:00 Rifaximin (Xifaxan) 550 mg BID PO Last administered on 11/11/18 08:47; Admin Dose 550 MG; Start 11/09/18 at 00:00 Multivitamins Therapeutic (Theragran) 1 tab DAILY PO Last administered on 11/11/18 08:47; Admin Dose 1 TAB; Start 11/09/18 at 09:00 Folic Acid (Folic Acid) 1 mg DAILY PO Last administered on 11/11/18 08:48; Admin Dose 1 MG; Start 11/09/18 at 09:00 Ibuprofen (Motrin) 400 mg Q6H PRN PO MILD PAIN(1-3) OR TEMP>38C Last administered on 11/10/18 09:41; Admin Dose 400 MG; Start 11/09/18 at 11:30 Spironolactone (Aldactone) 100 mg DAILY PO Last administered on 11/11/18 08:48; Admin Dose 100 MG; Start 11/10/18 at 09:00 Furosemide (Lasix) 40 mg DAILY PO Last administered on 11/11/18 08:48; Admin Dose 40 MG; Start 11/09/18 at 12:00 Pantoprazole (Protonix Tab) 40 mg DAILY@06 PO Last administered on 11/11/18 05 :32; Admin Dose 40 MG; Start 11/10/18 at 06:00 Sodium Chloride (Nacl) 1 gm TID PO Last administered on 11/11/18 11:59; Admin Dose 1 GM; Start 11/09/18 at 21:00 Lactulose (Enulose) 20 gm Q6 PO Last administered on 11/11/18 11:59; Admin Dose 20 GM; Start 11/10/18 at 18:00 CORTNEY DANIELS Nov 11, 2018 12:22
--- NOTE | 2018-11-11 14:20 | PN ---
Date/Time of Note Date/Time of Note DATE: 11/11/18 TIME: 14:19 Assessment/Plan VTE Prophylaxis Risk score (from [facility])>0 risk: 3 SCD applied (from [facility]): Yes Pharmacological prophylaxis: other Pharm contraindication: liver dx Lines/Catheters IV [facility]ter Type (from [facility]): Peripheral IV Urinary Cath still in place: No Assessment/Plan Assessment/Plan 1. UTI, rocephin 2. Alcoholic liver disease with Liver Cirrhosis with portal hypertension/splenomegaly/ coagulopathy/ascites, on steroid and lactulose/rifaximin, Lasix, Aldactone follow up with GI 3. Alcohol abuse, Counseled on cessation. 4. Hyponatremia, due to alcoholism/liver disease, free water restriction, oral Na 5.Hypertension, controlled 6. Normocytic anemia, follow up with H/H 7. Thrombocytopenia, alcohol related, follow up with PLT 8. Morbid Obesity, life style changes advised Result Diagram: 11/11/18 0629 11/11/18 0629 Results 24hrs Laboratory Tests Test 11/11/18 06:29 White Blood Count 21.0 H Red Blood Count 3.30 L Hemoglobin 11.8 L Hematocrit 33.0 L Mean Corpuscular Volume 100.0 Mean Corpuscular Hemoglobin 35.8 H Mean Corpuscular Hemoglobin Concent 35.8 Red Cell Distribution Width 19.3 H Platelet Count 107 L Mean Platelet Volume 10.7 H Immature Granulocytes % 2.900 H Neutrophils % 80.0 H Lymphocytes % 9.0 L Monocytes % 7.8 Eosinophils % 0.0 Basophils % 0.3 Nucleated Red Blood Cells % 0.1 H Immature Granulocytes # 0.600 H Neutrophils # 16.9 H Lymphocytes # 1.9 Monocytes # 1.6 H Eosinophils # 0.0 Basophils # 0.1 Nucleated Red Blood Cells # 0.0 Prothrombin Time 23.3 H Prothrombin Time Ratio 1.8 INR International Normalized Ratio 2.06 Sodium Level 123 L Potassium Level 5.0 Chloride Level 86 L Carbon Dioxide Level 26 Anion Gap 11 Blood Urea Nitrogen 31 H Creatinine 0.86 Est Glomerular Filtrat Rate mL/min > 60 Glucose Level 98 Calcium Level 9.0 Total Bilirubin 26.8 H Direct Bilirubin 22.20 *H Indirect Bilirubin 4.6 H Aspartate Amino Transf (AST/SGOT) 546 H Alanine Aminotransferase (ALT/SGPT) 439 H Alkaline Phosphatase 335 H Total Protein 7.9 Albumin 3.1 L Globulin 4.80 H Albumin/Globulin Ratio 0.64 Lipase 773 H Subjective 24 Hr Interval Summary Free Text/Dictation stronger today(walks without using walker) Exam/Review of Systems Exam Vitals Vital Signs Date Temp Pulse Resp B/P (MAP) Pulse Ox O2 O2 Flow FiO2 Time Delivery Rate 11/11/18 81 13:36 11/11/18 97.3 20 129/65 96 Room Air 11:29 (86) Intake and Output 11/10/18 11/10/18 11/11/18 1515:00 23:00 07:00 IntakeIntake Total 960 ml 300 ml OutputOutput Total 1100 ml BalanceBalance -140 ml 300 ml Constitutional: alert, oriented, well developed, obese Head: normocephalic, atraumatic Eyes: nl conjunctiva, EOMI, nl lids, PERRL ENMT: nl external ears & nose, nl lips & teeth, nl nasal mucosa & septum Respiratory: clear to auscultation, normal air movement; No congested cough, No crackles/rales, No diminished breath sounds, No intercostal retraction, No labored breathing, No respirations, No tactile fremitus, No wheezing, No other Cardiovascular: regular rate and rhythm, nl pulses; No bruits, No diastolic murmur, No edema, No gallop, No irregular rhythm, No jugular venous distention (JVD), No murmurs/extra sounds, No rub, No systolic murmur, No S3, No S4, No other Gastrointestinal: soft, nl liver, spleen Musculoskeletal: nl extremities to inspection Extremities: normal pulses; No calf tenderness, No cyanosis, No clubbing, No edema, No pitting pedal edema, No palpable cord, No tenderness, No other 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: STONEWORKING SANDER II-XII intact, nl mental status, nl speech, nl strength Results Results 24hrs Laboratory Tests Test 11/11/18 06:29 White Blood Count 21.0 H Red Blood Count 3.30 L Hemoglobin 11.8 L Hematocrit 33.0 L Mean Corpuscular Volume 100.0 Mean Corpuscular Hemoglobin 35.8 H Mean Corpuscular Hemoglobin Concent 35.8 Red Cell Distribution Width 19.3 H Platelet Count 107 L Mean Platelet Volume 10.7 H Immature Granulocytes % 2.900 H Neutrophils % 80.0 H Lymphocytes % 9.0 L Monocytes % 7.8 Eosinophils % 0.0 Basophils % 0.3 Nucleated Red Blood Cells % 0.1 H Immature Granulocytes # 0.600 H Neutrophils # 16.9 H Lymphocytes # 1.9 Monocytes # 1.6 H Eosinophils # 0.0 Basophils # 0.1 Nucleated Red Blood Cells # 0.0 Prothrombin Time 23.3 H Prothrombin Time Ratio 1.8 INR International Normalized Ratio 2.06 Sodium Level 123 L Potassium Level 5.0 Chloride Level 86 L Carbon Dioxide Level 26 Anion Gap 11 Blood Urea Nitrogen 31 H Creatinine 0.86 Est Glomerular Filtrat Rate mL/min > 60 Glucose Level 98 Calcium Level 9.0 Total Bilirubin 26.8 H Direct Bilirubin 22.20 *H Indirect Bilirubin 4.6 H Aspartate Amino Transf (AST/SGOT) 546 H Alanine Aminotransferase (ALT/SGPT) 439 H Alkaline Phosphatase 335 H Total Protein 7.9 Albumin 3.1 L Globulin 4.80 H Albumin/Globulin Ratio 0.64 Lipase 773 H Medications Medication Current Medications IV Flush (NS 3 ml) 3 ml PER PROTOCOL IV ; Start 11/08/18 at 20:30 Docusate Sodium (Colace) 100 mg Q12H PRN PO .CONSTIPATION; Start 11/08/18 at 20:30 Bisacodyl (Dulcolax) 5 mg DAILY PRN PO .CONSTIPATION; Start 11/08/18 at 20:30 Ondansetron HCl (Zofran Inj) 4 mg Q4H PRN IV NAUSEA AND/OR VOMITING; Start 11/08/18 at 20:30 Methylprednisolone Sodium Succinate (Solu-Medrol) 40 mg DAILY IV Last admin istered on 11/11/18at 08:48; Admin Dose 40 MG; Start 11/08/18 at 20:30 Lisinopril (Zestril) 10 mg BID PO Last administered on 11/09/18 09:23; Admin Dose 10 MG; Start 11/08/18 at 21:00; Status Hold Thiamine HCl (Vitamin B1) 100 mg DAILY PO Last administered on 11/11/18at 08:48; Admin Dose 100 MG; Start 11/09/18 at 09:00 Rifaximin (Xifaxan) 550 mg BID PO Last administered on 11/11/18at 08:47; Admin Dose 550 MG; Start 11/09/18 at 00:00 Multivitamins Therapeutic (Theragran) 1 tab DAILY PO Last administered on 11/11/18 08:47; Admin Dose 1 TAB; Start 11/09/18 at 09:00 Folic Acid (Folic Acid) 1 mg DAILY PO Last administered on 11/11/18 08:48; Admin Dose 1 MG; Start 11/09/18 at 09:00 Ibuprofen (Motrin) 400 mg Q6H PRN PO MILD PAIN(1-3) OR TEMP>38C Last administered on 11/10/18 09:41; Admin Dose 400 MG; Start 11/09/18 at 11:30 Spironolactone (Aldactone) 100 mg DAILY PO Last administered on 11/11/18 08:48; Admin Dose 100 MG; Start 11/10/18 at 09:00 Furosemide (Lasix) 40 mg DAILY PO Last administered on 11/11/18 08:48; Admin Dose 40 MG; Start 11/09/18 at 12:00 Pantoprazole (Protonix Tab) 40 mg DAILY@06 PO Last administered on 11/11/18 05:32; Admin Dose 40 MG; Start 11/10/18 at 06:00 Sodium Chloride (Nacl) 1 gm TID PO Last administered on 11/11/18 11:59; Admin Dose 1 GM; Start 11/09/18 at 21:00 Lactulose (Enulose) 20 gm Q6 PO Last administered on 11/11/18 11:59; Admin Dose 20 GM; Start 11/10/18 at 18:00 MACARENA MOONEY MD Nov 11, 2018 14:20
[2018-11-11] MEDS: CEFTRIAXONE 1 GM/50 ML (PMX) 50 ML IVPB SCH (15:10)
--- NOTE | 2018-11-11 15:21 | PN ---
Date/Time of Note Date/Time of Note DATE: 11/11/18 TIME: 15:16 Assessment/Plan VTE Prophylaxis Risk score (from Ns)>0 risk: 3 SCD applied (from [facility]): Yes Pharmacological prophylaxis: NA/contraindicated Pharm contraindication: liver dx Lines/Catheters IV [facility]ter Type (from [facility]): Peripheral IV Urinary Cath still in place: No Assessment/Plan Assessment/Plan Assessment: Decompensated liver cirrhosis Alcoholic hepatitis Hepatic encephalopathy Leukocytosis -patient is on steroids Coagulopathy Hematochezia Hematuria Thrombocytopenia Transaminitis Pancreatitis -lipase 325 Hyperbilirubinemia Obesity Hypertension No history of EGD or colonoscopy Plan: Check lipase with a.m. labs Downgraded to clear liquid diet Continue rifaximin/lactulose Continue methylprednisolone Continue Aldactone Vitamin K 10 mg x1 Monitor LFTs If patient improves recommend EGD for variceal screening and colonoscopy for CRC screening and hematochezia Patient seen in collaboration with Dr. Nuñez Subjective: Patient is awake and alert today. White blood count and bilirubin are rising. Lipase is trending up. We will order MRCP to rule out obstruction. Downgraded diet to clear liquid. Further recommendations will depend on results of MRCP and clinical course. Exam PHYSICAL EXAMINATION: GENERAL: Well developed, well nourished, obese, awake & oriented x 3, in no acute distress SKIN: No lesions, profound jaundice, ecchymosis on upper and lower extremities LYMPHATIC: No palpable lymphadenopathy. HEAD: Normocephalic, atraumatic, no tenderness. EYES: Pupils equal reactive to light and accommodation, full extraocular movements, sclera-icteric, no discharge. EARS/NOSE AND THROAT: Ears normal, nose normal, oropharynx normal, oral membranes well hydrated without lesions. NECK: Supple, no masses, thyroid normal, JVP within normal limits, carotids normal without bruits. CHEST: Inspection within normal limits. CARDIOVASCULAR: Heart: Regular rate and rhythm, no murmurs, gallops or rubs. Peripheral pulses present within normal limits, no cyanosis, clubbing or edemas. No pulsatile abdominal mass RESPIRATORY: Lungs clear to auscultation and percussion, no wheezing, no rubs GASTROINTESTINAL AND LIVER: Abdomen: Soft, generalized tenderness, non-distend ed, no hernias, no masses, no organomegaly, +ascites, no guarding, no rebound tenderness, normoactive bowel sounds. Rectal: Deferred. GENITOURINARY: [Male genitalia within normal limits. EXTREMITIES: No cyanosis, clubbing or edema. Result Diagram: 11/11/18 0629 11/11/18 0629 Results 24hrs Laboratory Tests Test 11/11/18 06:29 White Blood Count 21.0 H Red Blood Count 3.30 L Hemoglobin 11.8 L Hematocrit 33.0 L Mean Corpuscular Volume 100.0 Mean Corpuscular Hemoglobin 35.8 H Mean Corpuscular Hemoglobin Concent 35.8 Red Cell Distribution Width 19.3 H Platelet Count 107 L Mean Platelet Volume 10.7 H Immature Granulocytes % 2.900 H Neutrophils % 80.0 H Lymphocytes % 9.0 L Monocytes % 7.8 Eosinophils % 0.0 Basophils % 0.3 Nucleated Red Blood Cells % 0.1 H Immature Granulocytes # 0.600 H Neutrophils # 16.9 H Lymphocytes # 1.9 Monocytes # 1.6 H Eosinophils # 0.0 Basophils # 0.1 Nucleated Red Blood Cells # 0.0 Prothrombin Time 23.3 H Prothrombin Time Ratio 1.8 INR International Normalized Ratio 2.06 Sodium Level 123 L Potassium Level 5.0 Chloride Level 86 L Carbon Dioxide Level 26 Anion Gap 11 Blood Urea Nitrogen 31 H Creatinine 0.86 Est Glomerular Filtrat Rate mL/min > 60 Glucose Level 98 Calcium Level 9.0 Total Bilirubin 26.8 H Direct Bilirubin 22.20 *H Indirect Bilirubin 4.6 H Aspartate Amino Transf (AST/SGOT) 546 H Alanine Aminotransferase (ALT/SGPT) 439 H Alkaline Phosphatase 335 H Total Protein 7.9 Albumin 3.1 L Globulin 4.80 H Albumin/Globulin Ratio 0.64 Lipase 773 H CC: LASHON NUÑEZ MD ; Exam/Review of Systems Exam Vitals Vital Signs Date Temp Pulse Resp B/P (MAP) Pulse Ox O2 O2 Flow FiO2 Time Delivery Rate 11/11/18 81 13:36 11/11/18 97.3 20 129/65 96 Room Air 11:29 (86) Intake and Output 11/10/18 11/10/18 11/11/18 1515:00 23:00 07:00 IntakeIntake Total 960 ml 300 ml OutputOutput Total 1100 ml BalanceBalance -140 ml 300 ml Results Results 24hrs Laboratory Tests Test 11/11/18 06:29 White Blood Count 21.0 H Red Blood Count 3.30 L Hemoglobin 11.8 L Hematocrit 33.0 L Mean Corpuscular Volume 100.0 Mean Corpuscular Hemoglobin 35.8 H Mean Corpuscular Hemoglobin Concent 35.8 Red Cell Distribution Width 19.3 H Platelet Count 107 L Mean Platelet Volume 10.7 H Immature Granulocytes % 2.900 H Neutrophils % 80.0 H Lymphocytes % 9.0 L Monocytes % 7.8 Eosinophils % 0.0 Basophils % 0.3 Nucleated Red Blood Cells % 0.1 H Immature Granulocytes # 0.600 H Neutrophils # 16.9 H Lymphocytes # 1.9 Monocytes # 1.6 H Eosinophils # 0.0 Basophils # 0.1 Nucleated Red Blood Cells # 0.0 Prothrombin Time 23.3 H Prothrombin Time Ratio 1.8 INR International Normalized Ratio 2.06 Sodium Level 123 L Potassium Level 5.0 Chloride Level 86 L Carbon Dioxide Level 26 Anion Gap 11 Blood Urea Nitrogen 31 H Creatinine 0.86 Est Glomerular Filtrat Rate mL/min > 60 Glucose Level 98 Calcium Level 9.0 Total Bilirubin 26.8 H Direct Bilirubin 22.20 *H Indirect Bilirubin 4.6 H Aspartate Amino Transf (AST/SGOT) 546 H Alanine Aminotransferase (ALT/SGPT) 439 H Alkaline Phosphatase 335 H Total Protein 7.9 Albumin 3.1 L Globulin 4.80 H Albumin/Globulin Ratio 0.64 Lipase 773 H Medications Medication Current Medications IV Flush (NS 3 ml) 3 ml PER PROTOCOL IV ; Start 11/08/18 at 20:30 Docusate Sodium (Colace) 100 mg Q12H PRN PO .CONSTIPATION; Start 11/08/18 at 20:30 Bisacodyl (Dulcolax) 5 mg DAILY PRN PO .CONSTIPATION; Start 11/08/18 at 20:30 Ondansetron HCl (Zofran Inj) 4 mg Q4H PRN IV NAUSEA AND/OR VOMITING; Start 11/08/18 at 20:30 Methylprednisolone Sodium Succinate (Solu-Medrol) 40 mg DAILY IV Last administered on 11/11/18at 08:48; Admin Dose 40 MG; Start 11/08/18 at 20:30 Lisinopril (Zestril) 10 mg BID PO Last administered on 11/09/18at 09:23; Admin Dose 10 MG; Start 11/08/18 at 21:00; Status Hold Thiamine HCl (Vitamin B1) 100 mg DAILY PO Last administered on 11/11/18 08:48; Admin Dose 100 MG; Start 11/09/18 at 09:00 Rifaximin (Xifaxan) 550 mg BID PO Last administered on 11/11/18 08:47; Admin Dose 550 MG; Start 11/09/18 at 00:00 Multivitamins Therapeutic (Theragran) 1 tab DAILY PO Last administered on 11/11/18 08:47; Admin Dose 1 TAB; Start 11/09/18 at 09:00 Folic Acid (Folic Acid) 1 mg DAILY PO Last administered on 11/11/18 08:48; Admin Dose 1 MG; Start 11/09/18 at 09:00 Ibuprofen (Motrin) 400 mg Q6H PRN PO MILD PAIN(1-3) OR TEMP>38C Last administered on 11/10/18 09:41; Admin Dose 400 MG; Start 11/09/18 at 11:30 Spironolactone (Aldactone) 100 mg DAILY PO Last administered on 11/11/18 08:48; Admin Dose 100 MG; Start 11/10/18 at 09:00 Furosemide (Lasix) 40 mg DAILY PO Last administered on 11/11/18 08:48; Admin Dose 40 MG; Start 11/09/18 at 12:00 Pantoprazole (Protonix Tab) 40 mg DAILY@06 PO Last administered on 11/11/18 05:32; Admin Dose 40 MG; Start 11/10/18 at 06:00 Sodium Chloride (Nacl) 1 gm TID PO Last administered on 11/11/18 11:59; Admin Dose 1 GM; Start 11/09/18 at 21:00 Lactulose (Enulose) 20 gm Q6 PO Last administered on 11/11/18 11:59; Admin Dose 20 GM; Start 11/10/18 at 18:00 Ceftriaxone Sodium 50 ml @ 100 mls/hr Q24H IVPB ; Start 11/11/18 at 14:30 SOPHIA DEJESUS NP Nov 11, 2018 15:21
[2018-11-11] MEDS ORDERED: PHYTONADIONE 10 MG in DEXTROSE 5% 50 ML IVPB ONE (17:00)
[2018-11-12] VITALS (10 sets, daily range): BP systolic 126–142; BP diastolic 58–71; PULSE 67–81; RESP 18–20
[2018-11-12] MEDS: LACTULOSE 30ML CUP PO SCH ×4 (00:31→21:38)
[2018-11-12] MEDS: PANTOPRAZOLE (EC) 40 MG TAB PO SCH (06:50)
[2018-11-12] MEDS: SODIUM CHLORIDE 1 GM TAB PO SCH ×3 (09:51→20:51)
[2018-11-12] MEDS: SPIRONOLACTONE 50 MG TAB PO SCH (09:51)
[2018-11-12] MEDS: FOLIC ACID 1 MG TAB PO SCH (09:51)
[2018-11-12] MEDS: RIFAXIMIN 550 MG TAB PO SCH ×2 (09:51→20:51)
[2018-11-12] MEDS: MULTIVITAMINS THERAPEUTIC TAB PO SCH (09:51)
[2018-11-12] MEDS: THIAMINE 100 MG TAB PO SCH (09:52)
[2018-11-12] MEDS: METHYLPREDNISOLONE 40 MG INJ IV SCH (09:52)
[2018-11-12] MEDS: FUROSEMIDE 40 MG TAB PO SCH (09:52)
--- NOTE | 2018-11-12 11:48 | PN ---
Date/Time of Note Date/Time of Note DATE: 11/12/18 TIME: 11:44 Assessment/Plan VTE Prophylaxis Risk score (from [facility])>0 risk: 4 SCD applied (from [facility]): Yes Pharmacological prophylaxis: other Pharm contraindication: liver dx Lines/Catheters IV Catheter Type (from [facility]): Peripheral IV Urinary Cath still in place: No Assessment/Plan Assessment/Plan 1. UTI, rocephin 2. Alcoholic liver disease with Liver Cirrhosis with portal hypertension/splenomegaly/ coagulopathy/ascites, on steroid and lactulose/rifaximin, Lasix, Aldactone follow up with GI 3. Alcohol abuse, Counseled on cessation. 4. Hyponatremia, due to alcoholism/liver disease, free water restriction, oral Na 5. Acute pancreatitis, alcohol related, stable 6. Normocytic anemia, follow up with H/H 7. Thrombocytopenia, alcohol related, follow up with PLT 8. Morbid Obesity, life style changes advised 9.Hypertension, controlled Result Diagram: 11/12/1862711/12/18627 Results 24hrs Laboratory Tests Test 11/11/18 15:00 11/11/18 20:44 11/12/18 06:28 Urine Color KRISTOPHER Urine Clarity CLEAR Urine pH 7.0 Urine Specific [place] 1.006 Urine Ketones NEGATIVE Urine Nitrite NEGATIVE Urine Bilirubin 2+ H Urine Urobilinogen NEGATIVE Urine Leukocyte Esterase NEGATIVE Urine Microscopic RBC 0 Urine Microscopic WBC 0 Urine Bacteria FEW A Urine Hemoglobin 1+ H Urine Glucose NEGATIVE Urine Total Protein NEGATIVE Bedside Glucose 190 White Blood Count 23.0 H Red Blood Count 3.35 L Hemoglobin 11.5 L Hematocrit 33.0 L Mean Corpuscular Volume 98.5 Mean Corpuscular Hemoglobin 34.3 H Mean Corpuscular Hemoglobin Concent 34.8 Red Cell Distribution Width 19.4 H Platelet Count 107 L Mean Platelet Volume 10.7 H Immature Granulocytes % 2.700 H Neutrophils % 73.2 Lymphocytes % 13.2 L Monocytes % 10.9 Eosinophils % 0.0 Basophils % 0.0 Nucleated Red Blood Cells % 0.1 H Immature Granulocytes # 0.620 H Neutrophils # 16.8 H Lymphocytes # 3.0 H Monocytes # 2.5 H Eosinophils # 0.0 Basophils # 0.0 Nucleated Red Blood Cells # 0.0 Prothrombin Time 22.5 H Prothrombin Time Ratio 1.8 INR International Normalized Ratio 1.97 Sodium Level 123 L Potassium Level 4.7 Chloride Level 83 L Carbon Dioxide Level 28 Anion Gap 12 Blood Urea Nitrogen 27 H Creatinine 0.78 Est Glomerular Filtrat Rate mL/min > 60 Glucose Level 85 Calcium Level 9.0 Total Bilirubin 26.5 H Direct Bilirubin 21.80 *H Indirect Bilirubin 4.7 H Aspartate Amino Transf (AST/SGOT) 549 H Alanine Aminotransferase (ALT/SGPT) 473 H Alkaline Phosphatase 320 H Total Protein 7.7 Albumin 3.1 L Globulin 4.60 H Albumin/Globulin Ratio 0.67 Subjective 24 Hr Interval Summary Free Text/Dictation stronger, still has blood in urine Exam/Review of Systems Exam Vitals Vital Signs Date Temp Pulse Resp B/P (MAP) Pulse Ox O2 O2 Flow FiO2 Time Delivery Rate 11/12/18 97.4 67 20 136/71 100 Room Air 11:10 (92) Intake and Output 11/11/18 11/11/18 11/12/18 1515:00 23:00 07:00 IntakeIntake Total 800 ml BalanceBalance 800 ml Constitutional: alert, oriented, well developed Head: normocephalic, atraumatic Eyes: EOMI, nl lids, PERRL, other (jaundice) ENMT: nl external ears & nose, nl lips & teeth, nl nasal mucosa & septum Neck: supple, non-tender Respiratory: clear to auscultation, normal air movement; No congested cough, No crackles/rales, No diminished breath sounds, No intercostal retraction, No labored breathing, No respirations, No tactile fremitus, No wheezing, No other Cardiovascular: regular rate and rhythm, nl pulses; No bruits, No diastolic murmur, No edema, No gallop, No irregular rhythm, No jugular venous distention (JVD), No murmurs/extra sounds, No rub, No systolic murmur, No S3, No S4, No other Gastrointestinal: soft, nl liver, spleen Musculoskeletal: nl extremities to inspection Extremities: normal pulses; No calf tenderness, No cyanosis, No clubbing, No edema, No pitting pedal edema, No palpable cord, No tenderness, No other 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: 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 intact, nl mental status, nl speech, nl strength Results Results 24hrs Laboratory Tests Test 11/11/18 15:00 11/11/18 20:44 11/12/18 06:28 Urine Color KRISTOPHER Urine Clarity CLEAR Urine pH 7.0 Urine Specific [place] 1.006 Urine Ketones NEGATIVE Urine Nitrite NEGATIVE Urine Bilirubin 2+ H Urine Urobilinogen NEGATIVE Urine Leukocyte Esterase NEGATIVE Urine Microscopic RBC 0 Urine Microscopic WBC 0 Urine Bacteria FEW A Urine Hemoglobin 1+ H Urine Glucose NEGATIVE Urine Total Protein NEGATIVE Bedside Glucose 190 White Blood Count 23.0 H Red Blood Count 3.35 L Hemoglobin 11.5 L Hematocrit 33.0 L Mean Corpuscular Volume 98.5 Mean Corpuscular Hemoglobin 34.3 H Mean Corpuscular Hemoglobin Concent 34.8 Red Cell Distribution Width 19.4 H Platelet Count 107 L Mean Platelet Volume 10.7 H Immature Granulocytes % 2.700 H Neutrophils % 73.2 Lymphocytes % 13.2 L Monocytes % 10.9 Eosinophils % 0.0 Basophils % 0.0 Nucleated Red Blood Cells % 0.1 H Immature Granulocytes # 0.620 H Neutrophils # 16.8 H Lymphocytes # 3.0 H Monocytes # 2.5 H Eosinophils # 0.0 Basophils # 0.0 Nucleated Red Blood Cells # 0.0 Prothrombin Time 22.5 H Prothrombin Time Ratio 1.8 INR International Normalized Ratio 1.97 Sodium Level 123 L Potassium Level 4.7 Chloride Level 83 L Carbon Dioxide Level 28 Anion Gap 12 Blood Urea Nitrogen 27 H Creatinine 0.78 Est Glomerular Filtrat Rate mL/min > 60 Glucose Level 85 Calcium Level 9.0 Total Bilirubin 26.5 H Direct Bilirubin 21.80 *H Indirect Bilirubin 4.7 H Aspartate Amino Transf (AST/SGOT) 549 H Alanine Aminotransferase (ALT/SGPT) 473 H Alkaline Phosphatase 320 H Total Protein 7.7 Albumin 3.1 L Globulin 4.60 H Albumin/Globulin Ratio 0.67 Medications Medication Current Medications IV Flush (NS 3 ml) 3 ml PER PROTOCOL IV ; Start 11/08/18 at 20:30 Docusate Sodium (Colace) 100 mg Q12H PRN PO .CONSTIPATION; Start 11/08/18 at 20:30 Bisacodyl (Dulcolax) 5 mg DAILY PRN PO .CONSTIPATION; Start 11/08/18 at 20:30 Ondansetron HCl (Zofran Inj) 4 mg Q4H PRN IV NAUSEA AND/OR VOMITING; Start 11/08/18 at 20:30 Methylprednisolone Sodium Succinate (Solu-Medrol) 40 mg DAILY IV Last administered on 11/12/18at 09:52; Admin Dose 40 MG; Start 11/08/18 at 20:30 Lisinopril (Zestril) 10 mg BID PO Last administered on 11/09/18 09:23; Admin Dose 10 MG; Start 11/08/18 at 21:00; Status Hold Thiamine HCl (Vitamin B1) 100 mg DAILY PO Last administered on 11/12/18 09:52; Admin Dose 100 MG; Start 11/09/18 at 09:00 Rifaximin (Xifaxan) 550 mg BID PO Last administered on 11/12/18 09:51; Admin Dose 550 MG; Start 11/09/18 at 00:00 Multivitamins Therapeutic (Theragran) 1 tab DAILY PO Last administered on 11/12/18 09:51; Admin Dose 1 TAB; Start 11/09/18 at 09:00 Folic Acid (Folic Acid) 1 mg DAILY PO Last administered on 11/12/18 09:51; Admin Dose 1 MG; Start 11/09/18 at 09:00 Ibuprofen (Motrin) 400 mg Q6H PRN PO MILD PAIN(1-3) OR TEMP>38C Last administered on 11/10/18 09:41; Admin Dose 400 MG; Start 11/09/18 at 11:30 Spironolactone (Aldactone) 100 mg DAILY PO Last administered on 11/12/18 09:51; Admin Dose 100 MG; Start 11/10/18 at 09:00 Furosemide (Lasix) 40 mg DAILY PO Last administered on 11/12/18 09:52; Admin Dose 40 MG; Start 11/09/18 at 12:00 Pantoprazole (Protonix Tab) 40 mg DAILY@06 PO Last administered on 11/12/18 06:50; Admin Dose 40 MG; Start 11/10/18 at 06:00 Sodium Chloride (Nacl) 1 gm TID PO Last administered on 11/12/18 09:51; Admin Dose 1 GM; Start 11/09/18 at 21:00 Lactulose (Enulose) 20 gm Q6 PO Last administered on 11/12/18 06:50; Admin Dose 20 GM; Start 11/10/18 at 18:00 Ceftriaxone Sodium 50 ml @ 100 mls/hr Q24H IVPB Last administered on 11/11/18 15:10; Admin Dose 100 MLS/HR; Start 11/11/18 at 14:30 MACARENA MOONEY MD Nov 12, 2018 11:48
--- NOTE | 2018-11-12 12:04 | PN ---
Date/Time of Note Date/Time of Note DATE: 11/12/18 TIME: 12:03 Assessment/Plan VTE Prophylaxis Risk score (from [facility])>0 risk: 4 SCD applied (from [facility]): Yes Lines/Catheters IV Catheter Type (from [facility]): Peripheral IV Urinary Cath still in place: No Assessment/Plan Assessment/Plan 1. Hyponatremia (123 today) due to Hypervolemic Hyponatremia in setting of acute liver failure 2. Rule out SIADH 3. Acute hepatic failure 4. Biliary colic vs cholecystitis 5. H/o alcohol abuse Plan: continue lasix 40mg po daily and spironolactone 50mg po daily Solu medrol 40mg iV daily , Na chloride tablet 1 gram PO- Increase dose to TID Abdominal US in ED showed The right kidney measures 10.8 cm. There is normal echogenicity of the right kidney. There is no solid right renal mass, hydronephrosis, or calculus. There is a benign 1 cm cyst in the upper to mid right kidney. Thanks for consultation, will continue to follow up Patent seen in collaboration with Dr Rommel Baumann. dw staff Result Diagram: 11/12/1862711/12/18627 Results 24hrs Laboratory Tests Test 11/11/18 15:00 11/11/18 20:44 11/12/18 06:28 Urine Color KRISTOPHER Urine Clarity CLEAR Urine pH 7.0 Urine Specific [place] 1.006 Urine Ketones NEGATIVE Urine Nitrite NEGATIVE Urine Bilirubin 2+ H Urine Urobilinogen NEGATIVE Urine Leukocyte Esterase NEGATIVE Urine Microscopic RBC 0 Urine Microscopic WBC 0 Urine Bacteria FEW A Urine Hemoglobin 1+ H Urine Glucose NEGATIVE Urine Total Protein NEGATIVE Bedside Glucose 190 White Blood Count 23.0 H Red Blood Count 3.35 L Hemoglobin 11.5 L Hematocrit 33.0 L Mean Corpuscular Volume 98.5 Mean Corpuscular Hemoglobin 34.3 H Mean Corpuscular Hemoglobin Concent 34.8 Red Cell Distribution Width 19.4 H Platelet Count 107 L Mean Platelet Volume 10.7 H Immature Granulocytes % 2.700 H Neutrophils % 73.2 Lymphocytes % 13.2 L Monocytes % 10.9 Eosinophils % 0.0 Basophils % 0.0 Nucleated Red Blood Cells % 0.1 H Immature Granulocytes # 0.620 H Neutrophils # 16.8 H Lymphocytes # 3.0 H Monocytes # 2.5 H Eosinophils # 0.0 Basophils # 0.0 Nucleated Red Blood Cells # 0.0 Prothrombin Time 22.5 H Prothrombin Time Ratio 1.8 INR International Normalized Ratio 1.97 Sodium Level 123 L Potassium Level 4.7 Chloride Level 83 L Carbon Dioxide Level 28 Anion Gap 12 Blood Urea Nitrogen 27 H Creatinine 0.78 Est Glomerular Filtrat Rate mL/min > 60 Glucose Level 85 Calcium Level 9.0 Total Bilirubin 26.5 H Direct Bilirubin 21.80 *H Indirect Bilirubin 4.7 H Aspartate Amino Transf (AST/SGOT) 549 H Alanine Aminotransferase (ALT/SGPT) 473 H Alkaline Phosphatase 320 H Total Protein 7.7 Albumin 3.1 L Globulin 4.60 H Albumin/Globulin Ratio 0.67 Exam/Review of Systems Exam Vitals Vital Signs Date Temp Pulse Resp B/P (MAP) Pulse Ox O2 O2 Flow FiO2 Time Delivery Rate 11/12/18 97.4 67 20 136/71 100 Room Air 11:10 (92) Intake and Output 11/11/18 11/11/18 11/12/18 1515:00 23:00 07:00 IntakeIntake Total 800 ml BalanceBalance 800 ml Results Results 24hrs Laboratory Tests Test 11/11/18 15:00 11/11/18 20:44 11/12/18 06:28 Urine Color KRISTOPHER Urine Clarity CLEAR Urine pH 7.0 Urine Specific [place] 1.006 Urine Ketones NEGATIVE Urine Nitrite NEGATIVE Urine Bilirubin 2+ H Urine Urobilinogen NEGATIVE Urine Leukocyte Esterase NEGATIVE Urine Microscopic RBC 0 Urine Microscopic WBC 0 Urine Bacteria FEW A Urine Hemoglobin 1+ H Urine Glucose NEGATIVE Urine Total Protein NEGATIVE Bedside Glucose 190 White Blood Count 23.0 H Red Blood Count 3.35 L Hemoglobin 11.5 L Hematocrit 33.0 L Mean Corpuscular Volume 98.5 Mean Corpuscular Hemoglobin 34.3 H Mean Corpuscular Hemoglobin Concent 34.8 Red Cell Distribution Width 19.4 H Platelet Count 107 L Mean Platelet Volume 10.7 H Immature Granulocytes % 2.700 H Neutrophils % 73.2 Lymphocytes % 13.2 L Monocytes % 10.9 Eosinophils % 0.0 Basophils % 0.0 Nucleated Red Blood Cells % 0.1 H Immature Granulocytes # 0.620 H Neutrophils # 16.8 H Lymphocytes # 3.0 H Monocytes # 2.5 H Eosinophils # 0.0 Basophils # 0.0 Nucleated Red Blood Cells # 0.0 Prothrombin Time 22.5 H Prothrombin Time Ratio 1.8 INR International Normalized Ratio 1.97 Sodium Level 123 L Potassium Level 4.7 Chloride Level 83 L Carbon Dioxide Level 28 Anion Gap 12 Blood Urea Nitrogen 27 H Creatinine 0.78 Est Glomerular Filtrat Rate mL/min > 60 Glucose Level 85 Calcium Level 9.0 Total Bilirubin 26.5 H Direct Bilirubin 21.80 *H Indirect Bilirubin 4.7 H Aspartate Amino Transf (AST/SGOT) 549 H Alanine Aminotransferase (ALT/SGPT) 473 H Alkaline Phosphatase 320 H Total Protein 7.7 Albumin 3.1 L Globulin 4.60 H Albumin/Globulin Ratio 0.67 Medications Medication Current Medications IV Flush (NS 3 ml) 3 ml PER PROTOCOL IV ; Start 11/08/18 at 20:30 Docusate Sodium (Colace) 100 mg Q12H PRN PO .CONSTIPATION; Start 11/08/18 at 20:30 Bisacodyl (Dulcolax) 5 mg DAILY PRN PO .CONSTIPATION; Start 11/08/18 at 20:30 Ondansetron HCl (Zofran Inj) 4 mg Q4H PRN IV NAUSEA AND/OR VOMITING; Start 11/08/18 at 20:30 Methylprednisolone Sodium Succinate (Solu-Medrol) 40 mg DAILY IV Last administered on 11/12/18 09:52; Admin Dose 40 MG; Start 11/08/18 at 20:30 Lisinopril (Zestril) 10 mg BID PO Last administered on 11/09/18 09:23; Admin Dose 10 MG; Start 11/08/18 at 21:00; Status Hold Thiamine HCl (Vitamin B1) 100 mg DAILY PO Last administered on 11/12/18 09:52; Admin Dose 100 MG; Start 11/09/18 at 09:00 Rifaximin (Xifaxan) 550 mg BID PO Last administered on 11/12/18 09:51; Admin Dose 550 MG; Start 11/09/18 at 00:00 Multivitamins Therapeutic (Theragran) 1 tab DAILY PO Last administered on 11/12/18 09:51; Admin Dose 1 TAB; Start 11/09/18 at 09:00 Folic Acid (Folic Acid) 1 mg DAILY PO Last administered on 11/12/18 09:51; Admin Dose 1 MG; Start 11/09/18 at 09:00 Ibuprofen (Motrin) 400 mg Q6H PRN PO MILD PAIN(1-3) OR TEMP>38C Last administered on 11/10/18 09:41; Admin Dose 400 MG; Start 11/09/18 at 11:30 Spironolactone (Aldactone) 100 mg DAILY PO Last administered on 11/12/18 09:51; Admin Dose 100 MG; Start 11/10/18 at 09:00 Furosemide (Lasix) 40 mg DAILY PO Last administered on 11/12/18 09:52; Admin Dose 40 MG; Start 11/09/18 at 12:00 Pantoprazole (Protonix Tab) 40 mg DAILY@06 PO Last administered on 11/12/18 06 :50; Admin Dose 40 MG; Start 11/10/18 at 06:00 Sodium Chloride (Nacl) 1 gm TID PO Last administered on 11/12/18 09:51; Admin Dose 1 GM; Start 11/09/18 at 21:00 Lactulose (Enulose) 20 gm Q6 PO Last administered on 11/12/18 06:50; Admin Dose 20 GM; Start 11/10/18 at 18:00 Ceftriaxone Sodium 50 ml @ 100 mls/hr Q24H IVPB Last administered on 11/11/18at 15:10; Admin Dose 100 MLS/HR; Start 11/11/18 at 14:30 CORTNEY DANIELS Nov 12, 2018 12:03
--- NOTE | 2018-11-12 12:15 | PN ---
Date/Time of Note Date/Time of Note DATE: 11/12/18 TIME: 12:05 Assessment/Plan VTE Prophylaxis Risk score (from Ns)>0 risk: 4 SCD applied (from Ns): Yes Pharmacological prophylaxis: NA/contraindicated Pharm contraindication: liver dx Lines/Catheters [facility]from [facility] Peripheral IV Urinary Cath still in place: No Assessment/Plan Assessment/Plan Assessment: Decompensated liver cirrhosis Alcoholic hepatitis Hepatic encephalopathy Leukocytosis -patient is on steroids Coagulopathy Hematochezia Hematuria Thrombocytopenia Transaminitis Pancreatitis -lipase 325 Hyperbilirubinemia UTI Obesity Hypertension No history of EGD or colonoscopy Plan: Advance diet 2 g Na Check lipase with a.m. labs Downgraded to clear liquid diet Continue rifaximin Decrease Lactulose to TID Continue methylprednisolone Continue Aldactone Monitor LFTs If patient improves recommend EGD for variceal screening and colonoscopy for CRC screening and hematochezia Patient seen in collaboration with Dr. Nuñez Subjective: Patient is awake and alert today. Patient states abdominal pain has improved. Patient had 3 bowel movements on lactulose this morning. Will decrease l actulose to every 8 hours Results of MRCP reviewed as negative for obstruction. Discussed with the patient. We will advance the diet to regular low sodium. Continue observation. Exam PHYSICAL EXAMINATION: GENERAL: Well developed, well nourished, obese, awake & oriented x 3, in no acute distress SKIN: No lesions, profound jaundice, ecchymosis on upper and lower extremities LYMPHATIC: No palpable lymphadenopathy. HEAD: Normocephalic, atraumatic, no tenderness. EYES: Pupils equal reactive to light and accommodation, full extraocular movements, sclera-icteric, no discharge. EARS/NOSE AND THROAT: Ears normal, nose normal, oropharynx normal, oral membranes well hydrated without lesions. NECK: Supple, no masses, thyroid normal, JVP within normal limits, carotids normal without bruits. CHEST: Inspection within normal limits. CARDIOVASCULAR: Heart: Regular rate and rhythm, no murmurs, gallops or rubs. Peripheral pulses present within normal limits, no cyanosis, clubbing or edemas. No pulsatile abdominal mass RESPIRATORY: Lungs clear to auscultation and percussion, no wheezing, no rubs GASTROINTESTINAL AND LIVER: Abdomen: Soft, generalized tenderness, non- distended, no hernias, no masses, no organomegaly, +ascites, no guarding, no rebound tenderness, normoactive bowel sounds. Rectal: Deferred. GENITOURINARY: [Male genitalia within normal limits. EXTREMITIES: No cyanosis, clubbing or edema Result Diagram: 11/12/1862711/12/18627 Results 24hrs Laboratory Tests Test 11/11/18 15:00 11/11/18 20:44 11/12/18 06:28 Urine Color KRISTOPHER Urine Clarity CLEAR Urine pH 7.0 Urine Specific Rector 1.006 Urine Ketones NEGATIVE Urine Nitrite NEGATIVE Urine Bilirubin 2+ H Urine Urobilinogen NEGATIVE Urine Leukocyte Esterase NEGATIVE Urine Microscopic RBC 0 Urine Microscopic WBC 0 Urine Bacteria FEW A Urine Hemoglobin 1+ H Urine Glucose NEGATIVE Urine Total Protein NEGATIVE Bedside Glucose 190 White Blood Count 23.0 H Red Blood Count 3.35 L Hemoglobin 11.5 L Hematocrit 33.0 L Mean Corpuscular Volume 98.5 Mean Corpuscular Hemoglobin 34.3 H Mean Corpuscular Hemoglobin Concent 34.8 Red Cell Distribution Width 19.4 H Platelet Count 107 L Mean Platelet Volume 10.7 H Immature Granulocytes % 2.700 H Neutrophils % 73.2 Lymphocytes % 13.2 L Monocytes % 10.9 Eosinophils % 0.0 Basophils % 0.0 Nucleated Red Blood Cells % 0.1 H Immature Granulocytes # 0.620 H Neutrophils # 16.8 H Lymphocytes # 3.0 H Monocytes # 2.5 H Eosinophils # 0.0 Basophils # 0.0 Nucleated Red Blood Cells # 0.0 Prothrombin Time 22.5 H Prothrombin Time Ratio 1.8 INR International Normalized Ratio 1.97 Sodium Level 123 L Potassium Level 4.7 Chloride Level 83 L Carbon Dioxide Level 28 Anion Gap 12 Blood Urea Nitrogen 27 H Creatinine 0.78 Est Glomerular Filtrat Rate mL/min > 60 Glucose Level 85 Calcium Level 9.0 Total Bilirubin 26.5 H Direct Bilirubin 21.80 *H Indirect Bilirubin 4.7 H Aspartate Amino Transf (AST/SGOT) 549 H Alanine Aminotransferase (ALT/SGPT) 473 H Alkaline Phosphatase 320 H Total Protein 7.7 Albumin 3.1 L Globulin 4.60 H Albumin/Globulin Ratio 0.67 CC: LASHON NUÑEZ MD ; Exam/Review of Systems Exam Vitals Vital Signs Date Temp Pulse Resp B/P (MAP) Pulse Ox O2 O2 Flow FiO2 Time Delivery Rate 11/12/18 97.4 67 20 136/71 100 Room Air 11:10 (92) Intake and Output 11/11/18 11/11/18 11/12/18 1515:00 23:00 07:00 IntakeIntake Total 800 ml BalanceBalance 800 ml Results Results 24hrs Laboratory Tests Test 11/11/18 15:00 11/11/18 20:44 11/12/18 06:28 Urine Color KRISTOPHER Urine Clarity CLEAR Urine pH 7.0 Urine Specific Rector 1.006 Urine Ketones NEGATIVE Urine Nitrite NEGATIVE Urine Bilirubin 2+ H Urine Urobilinogen NEGATIVE Urine Leukocyte Esterase NEGATIVE Urine Microscopic RBC 0 Urine Microscopic WBC 0 Urine Bacteria FEW A Urine Hemoglobin 1+ H Urine Glucose NEGATIVE Urine Total Protein NEGATIVE Bedside Glucose 190 White Blood Count 23.0 H Red Blood Count 3.35 L Hemoglobin 11.5 L Hematocrit 33.0 L Mean Corpuscular Volume 98.5 Mean Corpuscular Hemoglobin 34.3 H Mean Corpuscular Hemoglobin Concent 34.8 Red Cell Distribution Width 19.4 H Platelet Count 107 L Mean Platelet Volume 10.7 H Immature Granulocytes % 2.700 H Neutrophils % 73.2 Lymphocytes % 13.2 L Monocytes % 10.9 Eosinophils % 0.0 Basophils % 0.0 Nucleated Red Blood Cells % 0.1 H Immature Granulocytes # 0.620 H Neutrophils # 16.8 H Lymphocytes # 3.0 H Monocytes # 2.5 H Eosinophils # 0.0 Basophils # 0.0 Nucleated Red Blood Cells # 0.0 Prothrombin Time 22.5 H Prothrombin Time Ratio 1.8 INR International Normalized Ratio 1.97 Sodium Level 123 L Potassium Level 4.7 Chloride Level 83 L Carbon Dioxide Level 28 Anion Gap 12 Blood Urea Nitrogen 27 H Creatinine 0.78 Est Glomerular Filtrat Rate mL/min > 60 Glucose Level 85 Calcium Level 9.0 Total Bilirubin 26.5 H Direct Bilirubin 21.80 *H Indirect Bilirubin 4.7 H Aspartate Amino Transf (AST/SGOT) 549 H Alanine Aminotransferase (ALT/SGPT) 473 H Alkaline Phosphatase 320 H Total Protein 7.7 Albumin 3.1 L Globulin 4.60 H Albumin/Globulin Ratio 0.67 Medications Medication Current Medications IV Flush (NS 3 ml) 3 ml PER PROTOCOL IV ; Start 11/08/18 at 20:30 Docusate Sodium (Colace) 100 mg Q12H PRN PO .CONSTIPATION; Start 11/08/18 at 20:30 Bisacodyl (Dulcolax) 5 mg DAILY PRN PO .CONSTIPATION; Start 11/08/18 at 20:30 Ondansetron HCl (Zofran Inj) 4 mg Q4H PRN IV NAUSEA AND/OR VOMITING; Start 11/08/18 at 20:30 Methylprednisolone Sodium Succinate (Solu-Medrol) 40 mg DAILY IV Last administered on 11/12/18 09:52; Admin Dose 40 MG; Start 11/08/18 at 20:30 Lisinopril (Zestril) 10 mg BID PO Last administered on 11/09/18 09:23; Admin Dose 10 MG; Start 11/08/18 at 21:00; Status Hold Thiamine HCl (Vitamin B1) 100 mg DAILY PO Last administered on 11/12/18 09:52; Admin Dose 100 MG; Start 11/09/18 at 09:00 Rifaximin (Xifaxan) 550 mg BID PO Last administered on 11/12/18 09:51; Admin Dose 550 MG; Start 11/09/18 at 00:00 Multivitamins Therapeutic (Theragran) 1 tab DAILY PO Last administered on 11/12/18 09:51; Admin Dose 1 TAB; Start 11/09/18 at 09:00 Folic Acid (Folic Acid) 1 mg DAILY PO Last administered on 11/12/18 09:51; A dmin Dose 1 MG; Start 11/09/18 at 09:00 Ibuprofen (Motrin) 400 mg Q6H PRN PO MILD PAIN(1-3) OR TEMP>38C Last administered on 11/10/18 09:41; Admin Dose 400 MG; Start 11/09/18 at 11:30 Spironolactone (Aldactone) 100 mg DAILY PO Last administered on 11/12/18 09:51; Admin Dose 100 MG; Start 11/10/18 at 09:00 Furosemide (Lasix) 40 mg DAILY PO Last administered on 11/12/18 09:52; Admin Dose 40 MG; Start 11/09/18 at 12:00 Pantoprazole (Protonix Tab) 40 mg DAILY@06 PO Last administered on 11/12/18 06:50; Admin Dose 40 MG; Start 11/10/18 at 06:00 Sodium Chloride (Nacl) 1 gm TID PO Last administered on 11/12/18 09:51; Admin Dose 1 GM; Start 11/09/18 at 21:00 Lactulose (Enulose) 20 gm Q6 PO Last administered on 11/12/18at 06:50; Admin Dose 20 GM; Start 11/10/18 at 18:00 Ceftriaxone Sodium 50 ml @ 100 mls/hr Q24H IVPB Last administered on 11/11/18at 15:10; Admin Dose 100 MLS/HR; Start 11/11/18 at 14:30 SOPHIA DEJESUS NP Nov 12, 2018 12:14
[2018-11-12] MEDS ORDERED: NACL 3% 500 ML IV SCH (13:00)
[2018-11-12] MEDS: CEFTRIAXONE 1 GM/50 ML (PMX) 50 ML IVPB SCH (14:03)
[2018-11-13] VITALS (10 sets, daily range): BP systolic 117–131; BP diastolic 56–61; PULSE 72–80; RESP 17–20
[2018-11-13] MEDS: PANTOPRAZOLE (EC) 40 MG TAB PO SCH (05:35)
[2018-11-13] MEDS: LACTULOSE 30ML CUP PO SCH ×3 (05:36→21:39)
[2018-11-13] MEDS: FOLIC ACID 1 MG TAB PO SCH (10:06)
[2018-11-13] MEDS: FUROSEMIDE 40 MG TAB PO SCH (10:07)
[2018-11-13] MEDS: RIFAXIMIN 550 MG TAB PO SCH ×2 (10:07→21:38)
[2018-11-13] MEDS: MULTIVITAMINS THERAPEUTIC TAB PO SCH (10:07)
[2018-11-13] MEDS: SPIRONOLACTONE 50 MG TAB PO SCH (10:07)
[2018-11-13] MEDS: SODIUM CHLORIDE 1 GM TAB PO SCH ×3 (10:07→21:38)
[2018-11-13] MEDS: THIAMINE 100 MG TAB PO SCH (10:07)
[2018-11-13] MEDS: METHYLPREDNISOLONE 40 MG INJ IV SCH (10:08)
[2018-11-13] MEDS: CEFTRIAXONE 1 GM/50 ML (PMX) 50 ML IVPB SCH (13:53)
--- NOTE | 2018-11-13 15:16 | PN ---
Date/Time of Note Date/Time of Note DATE: 11/13/18 TIME: 15:04 Assessment/Plan VTE Prophylaxis Risk score (from Ns)>0 risk: 1 SCD applied (from Ns): No SCD contraindicated: low risk/ambulating Pharmacological prophylaxis: NA/contraindicated Pharm contraindication: bleeding, thrombocytopenia Lines/Catheters IV [facility]from [facility] Saline Lock Urinary Cath still in place: No Assessment/Plan Assessment/Plan Assessment: Decompensated liver cirrhosis Alcoholic hepatitis Hepatic encephalopathy Leukocytosis -patient is on steroids Coagulopathy Hematochezia Hematuria Thrombocytopenia Transaminitis Pancreatitis -lipase improving Hyperbilirubinemia UTI Obesity Hypertension No history of EGD or colonoscopy Plan: Continue 2 g Na diet Continue rifaximin Continue Lactulose Continue methylprednisolone Continue Aldactone Monitor LFTs If patient improves recommend EGD for variceal screening and colonoscopy for CRC screening and hematochezia Patient seen in collaboration with Dr. Nuñez Subjective: Patient reports his symptoms are improving, denies abdominal pain, denies nausea or vomiting. He is tolerating his diet. Live function tests and pancreatic enzymes stable and slowly improving. Continue observation. Exam PHYSICAL EXAMINATION: GENERAL: Well developed, well nourished, obese, awake & oriented x 3, in no acute distress SKIN: No lesions, profound jaundice, ecchymosis on upper and lower extremities LYMPHATIC: No palpable lymphadenopathy. HEAD: Normocephalic, atraumatic, no tenderness. EYES: Pupils equal reactive to light and accommodation, full extraocular movements, sclera-icteric, no discharge. EARS/NOSE AND THROAT: Ears normal, nose normal, oropharynx normal, oral membranes well hydrated without lesions. NECK: Supple, no masses, thyroid normal, JVP within normal limits, carotids normal without bruits. CHEST: Inspection within normal limits. CARDIOVASCULAR: Heart: Regular rate and rhythm, no murmurs, gallops or rubs. Peripheral pulses present within normal limits, no cyanosis, clubbing or edemas. No pulsatile abdominal mass RESPIRATORY: Lungs clear to auscultation and percussion, no wheezing, no rubs GASTROINTESTINAL AND LIVER: Abdomen: Soft, generalized tenderness, non- distended, no hernias, no masses, no organomegaly, +ascites, no guarding, no rebound tenderness, normoactive bowel sounds. Rectal: Deferred. GENITOURINARY: [Male genitalia within normal limits. EXTREMITIES: No cyanosis, clubbing or edema Result Diagram: 11/13/18 0656 11/13/18 0656 Results 24hrs Laboratory Tests Test 11/13/18 06:56 White Blood Count 20.9 H Red Blood Count 2.90 L Hemoglobin 10.3 L Hematocrit 28.6 L Mean Corpuscular Volume 98.6 Mean Corpuscular Hemoglobin 35.5 H Mean Corpuscular Hemoglobin Concent 36.0 Red Cell Distribution Width 18.7 H Platelet Count 102 L Mean Platelet Volume 11.1 H Immature Granulocytes % 2.700 H Neutrophils % 71.8 Lymphocytes % 13.4 L Monocytes % 11.8 H Eosinophils % 0.1 Basophils % 0.2 Nucleated Red Blood Cells % 0.1 H Immature Granulocytes # 0.560 H Neutrophils # 15.0 H Lymphocytes # 2.8 Monocytes # 2.5 H Eosinophils # 0.0 Basophils # 0.1 Nucleated Red Blood Cells # 0.0 Prothrombin Time 24.2 H Prothrombin Time Ratio 1.9 INR International Normalized Ratio 2.16 Sodium Level 122 L Potassium Level 4.4 Chloride Level 87 L Carbon Dioxide Level 27 Anion Gap 8 Blood Urea Nitrogen 25 H Creatinine 0.73 Est Glomerular Filtrat Rate mL/min > 60 Glucose Level 91 Calcium Level 8.6 Total Bilirubin 21.9 H Direct Bilirubin 17.90 *H Indirect Bilirubin 4.0 H Aspartate Amino Transf (AST/SGOT) 446 H Alanine Aminotransferase (ALT/SGPT) 426 H Alkaline Phosphatase 266 H Total Protein 6.6 # Albumin 2.6 L Globulin 4.00 H Albumin/Globulin Ratio 0.65 Amylase Level 105 Lipase 358 H CC: LASHON NUÑEZ MD ; Exam/Review of Systems Exam Vitals Vital Signs Date Temp Pulse Resp B/P (MAP) Pulse Ox O2 O2 Flow FiO2 Time Delivery Rate 11/13/18 97.8 80 20 131/60 98 Room Air 12:31 (83) Intake and Output 11/12/18 11/12/18 11/13/18 1414:59 22:59 06:59 IntakeIntake Total 960 ml OutputOutput Total 1600 ml BalanceBalance -640 ml Results Results 24hrs Laboratory Tests Test 11/13/18 06:56 White Blood Count 20.9 H Red Blood Count 2.90 L Hemoglobin 10.3 L Hematocrit 28.6 L Mean Corpuscular Volume 98.6 Mean Corpuscular Hemoglobin 35.5 H Mean Corpuscular Hemoglobin Concent 36.0 Red Cell Distribution Width 18.7 H Platelet Count 102 L Mean Platelet Volume 11.1 H Immature Granulocytes % 2.700 H Neutrophils % 71.8 Lymphocytes % 13.4 L Monocytes % 11.8 H Eosinophils % 0.1 Basophils % 0.2 Nucleated Red Blood Cells % 0.1 H Immature Granulocytes # 0.560 H Neutrophils # 15.0 H Lymphocytes # 2.8 Monocytes # 2.5 H Eosinophils # 0.0 Basophils # 0.1 Nucleated Red Blood Cells # 0.0 Prothrombin Time 24.2 H Prothrombin Time Ratio 1.9 INR International Normalized Ratio 2.16 Sodium Level 122 L Potassium Level 4.4 Chloride Level 87 L Carbon Dioxide Level 27 Anion Gap 8 Blood Urea Nitrogen 25 H Creatinine 0.73 Est Glomerular Filtrat Rate mL/min > 60 Glucose Level 91 Calcium Level 8.6 Total Bilirubin 21.9 H Direct Bilirubin 17.90 *H Indirect Bilirubin 4.0 H Aspartate Amino Transf (AST/SGOT) 446 H Alanine Aminotransferase (ALT/SGPT) 426 H Alkaline Phosphatase 266 H Total Protein 6.6 # Albumin 2.6 L Globulin 4.00 H Albumin/Globulin Ratio 0.65 Amylase Level 105 Lipase 358 H Medications Medication Current Medications IV Flush (NS 3 ml) 3 ml PER PROTOCOL IV ; Start 11/08/18 at 20:30 Docusate Sodium (Colace) 100 mg Q12H PRN PO .CONSTIPATION; Start 11/08/18 at 20:30 Bisacodyl (Dulcolax) 5 mg DAILY PRN PO .CONSTIPATION; Start 11/08/18 at 20:30 Ondansetron HCl (Zofran Inj) 4 mg Q4H PRN IV NAUSEA AND/OR VOMITING; Start 11/08/18 at 20:30 Methylprednisolone Sodium Succinate (Solu-Medrol) 40 mg DAILY IV Last administered on 11/13/18at 10:08; Admin Dose 40 MG; Start 11/08/18 at 20:30 Lisinopril (Zestril) 10 mg BID PO Last administered on 11/09/18at 09:23; Admin Dose 10 MG; Start 11/08/18 at 21:00; Status Hold Thiamine HCl (Vitamin B1) 100 mg DAILY PO Last administered on 11/13/18at 10:07; Admin Dose 100 MG; Start 11/09/18 at 09:00 Rifaximin (Xifaxan) 550 mg BID PO Last administered on 11/13/18 10:07; Admin Dose 550 MG; Start 11/09/18 at 00:00 Multivitamins Therapeutic (Theragran) 1 tab DAILY PO Last administered on 11/13/18 10:07; Admin Dose 1 TAB; Start 11/09/18 at 09:00 Folic Acid (Folic Acid) 1 mg DAILY PO Last administered on 11/13/18 10:06; Admin Dose 1 MG; Start 11/09/18 at 09:00 Ibuprofen (Motrin) 400 mg Q6H PRN PO MILD PAIN(1-3) OR TEMP>38C Last administered on 11/10/18 09:41; Admin Dose 400 MG; Start 11/09/18 at 11:30 Spironolactone (Aldactone) 100 mg DAILY PO Last administered on 11/13/18 10:07; Admin Dose 100 MG; Start 11/10/18 at 09:00 Furosemide (Lasix) 40 mg DAILY PO Last administered on 11/13/18 10:07; Admin Dose 40 MG; Start 11/09/18 at 12:00 Pantoprazole (Protonix Tab) 40 mg DAILY@06 PO Last administered on 11/13/18 05:35; Admin Dose 40 MG; Start 11/10/18 at 06:00 Sodium Chloride (Nacl) 1 gm TID PO Last administered on 11/13/18 13:53; Admin Dose 1 GM; Start 11/09/18 at 21:00 Ceftriaxone Sodium 50 ml @ 100 mls/hr Q24H IVPB Last administered on 11/13/18 13:53; Admin Dose 100 MLS/HR; Start 11/11/18 at 14:30 Lactulose (Enulose) 20 gm Q8 PO Last administered on 11/13/18 05:36; Admin Dose 20 GM; Start 11/12/18 at 14:00 POLINA RIVERA NP Nov 13, 2018 15:14
--- NOTE | 2018-11-13 16:24 | PN ---
Date/Time of Note Date/Time of Note DATE: 11/13/18 TIME: 16:22 Assessment/Plan VTE Prophylaxis Risk score (from Ns)>0 risk: 1 [place] [facility] [place] contraindicated: low risk/ambulating Pharmacological prophylaxis: NA/contraindicated Pharm contraindication: low risk/ambulating Lines/Catheters [facility] Saline Lock Urinary Cath still in place: No Assessment/Plan Assessment/Plan 1. UTI, rocephin 2. Alcoholic liver disease with Liver Cirrhosis with portal hypertension/splenomegaly/ coagulopathy/ascites, on steroid and lactulose/rifaximin, Lasix, Aldactone follow up with GI. Bilirubin actually downtrended today. 3. Alcohol abuse, Counseled on cessation. 4. Hyponatremia, due to alcoholism/liver disease, free water restriction, oral Na 5. Acute pancreatitis, alcohol related, stable 6. Normocytic anemia, follow up with H/H 7. Thrombocytopenia, alcohol related, follow up with PLT 8. Morbid Obesity, life style changes advised 9.Hypertension, controlled Result Diagram: 11/13/18 0656 11/13/18 0656 Subjective 24 Hr Interval Summary Free Text/Dictation Patient feeling slightly improved today. Still very fatigued and slightly sleepy. Apparently he is not ambulating. Exam/Review of Systems Exam Vitals Vital Signs Date Temp Pulse Resp B/P (MAP) Pulse Ox O2 O2 Flow FiO2 Time Delivery Rate 11/13/18 97.8 74 17 125/61 95 Room Air 16:06 (82) Intake and Output 11/12/18 11/12/18 11/13/18 1414:59 22:59 06:59 IntakeIntake Total 960 ml OutputOutput Total 1600 ml BalanceBalance -640 ml Exam Constitutional: Morbidly obese man awake and alert. Head: normocephalic, atraumatic Eyes: Scleral icterus ENMT: nl external ears & nose, nl lips & teeth, nl nasal mucosa & septum Neck: supple, non-tender Respiratory: clear to auscultation, normal air movement; No congested cough, No crackles/rales, No diminished breath sounds, No intercostal retraction, No labored breathing, No respirations, No tactile fremitus, No wheezing, No other Cardiovascular: regular rate and rhythm, nl pulses; No bruits, No diastolic murmur, No edema, No gallop, No irregular rhythm, No jugular venous distention (JVD), No murmurs/extra sounds, No rub, No systolic murmur, No S3, No S4, No other Gastrointestinal: soft, nl liver, spleen Musculoskeletal: nl extremities to inspection Extremities: normal pulses; No calf tenderness, No cyanosis, No clubbing, No edema, No pitting pedal edema, No palpable cord, No tenderness, No other Results Results 24hrs Laboratory Tests Test 11/13/18 06:56 White Blood Count 20.9 H Red Blood Count 2.90 L Hemoglobin 10.3 L Hematocrit 28.6 L Mean Corpuscular Volume 98.6 Mean Corpuscular Hemoglobin 35.5 H Mean Corpuscular Hemoglobin Concent 36.0 Red Cell Distribution Width 18.7 H Platelet Count 102 L Mean Platelet Volume 11.1 H Immature Granulocytes % 2.700 H Neutrophils % 71.8 Lymphocytes % 13.4 L Monocytes % 11.8 H Eosinophils % 0.1 Basophils % 0.2 Nucleated Red Blood Cells % 0.1 H Immature Granulocytes # 0.560 H Neutrophils # 15.0 H Lymphocytes # 2.8 Monocytes # 2.5 H Eosinophils # 0.0 Basophils # 0.1 Nucleated Red Blood Cells # 0.0 Prothrombin Time 24.2 H Prothrombin Time Ratio 1.9 INR International Normalized Ratio 2.16 Sodium Level 122 L Potassium Level 4.4 Chloride Level 87 L Carbon Dioxide Level 27 Anion Gap 8 Blood Urea Nitrogen 25 H Creatinine 0.73 Est Glomerular Filtrat Rate mL/min > 60 Glucose Level 91 Calcium Level 8.6 Total Bilirubin 21.9 H Direct Bilirubin 17.90 *H Indirect Bilirubin 4.0 H Aspartate Amino Transf (AST/SGOT) 446 H Alanine Aminotransferase (ALT/SGPT) 426 H Alkaline Phosphatase 266 H Total Protein 6.6 # Albumin 2.6 L Globulin 4.00 H Albumin/Globulin Ratio 0.65 Amylase Level 105 Lipase 358 H Medications Medication Current Medications IV Flush (NS 3 ml) 3 ml PER PROTOCOL IV ; Start 11/08/18 at 20:30 Docusate Sodium (Colace) 100 mg Q12H PRN PO .CONSTIPATION; Start 11/08/18 at 20:30 Bisacodyl (Dulcolax) 5 mg DAILY PRN PO .CONSTIPATION; Start 11/08/18 at 20:30 Ondansetron HCl (Zofran Inj) 4 mg Q4H PRN IV NAUSEA AND/OR VOMITING; Start 11/08/18 at 20:30 Methylprednisolone Sodium Succinate (Solu-Medrol) 40 mg DAILY IV Last administered on 11/13/18 10:08; Admin Dose 40 MG; Start 11/08/18 at 20:30 Lisinopril (Zestril) 10 mg BID PO Last administered on 11/09/18 09:23; Admin Dose 10 MG; Start 11/08/18 at 21:00; Status Hold Thiamine HCl (Vitamin B1) 100 mg DAILY PO Last administered on 11/13/18 10:07; Admin Dose 100 MG; Start 11/09/18 at 09:00 Rifaximin (Xifaxan) 550 mg BID PO Last administered on 11/13/18 10:07; Admin Dose 550 MG; Start 11/09/18 at 00:00 Multivitamins Therapeutic (Theragran) 1 tab DAILY PO Last administered on 11/13/18 10:07; Admin Dose 1 TAB; Start 11/09/18 at 09:00 Folic Acid (Folic Acid) 1 mg DAILY PO Last administered on 11/13/18 10:06; Admin Dose 1 MG; Start 11/09/18 at 09:00 Ibuprofen (Motrin) 400 mg Q6H PRN PO MILD PAIN(1-3) OR TEMP>38C Last administered on 11/10/18 09:41; Admin Dose 400 MG; Start 11/09/18 at 11:30 Spironolactone (Aldactone) 100 mg DAILY PO Last administered on 11/13/18 10:07; Admin Dose 100 MG; Start 11/10/18 at 09:00 Furosemide (Lasix) 40 mg DAILY PO Last administered on 11/13/18 10:07; Admin Dose 40 MG; Start 11/09/18 at 12:00 Pantoprazole (Protonix Tab) 40 mg DAILY@06 PO Last administered on 11/13/18 05:35; Admin Dose 40 MG; Start 11/10/18 at 06:00 Sodium Chloride (Nacl) 1 gm TID PO Last administered on 11/13/18 13:53; Admin Dose 1 GM; Start 11/09/18 at 21:00 Ceftriaxone Sodium 50 ml @ 100 mls/hr Q24H IVPB Last administered on 11/13/18at 13:53; Admin Dose 100 MLS/HR; Start 11/11/18 at 14:30 Lactulose (Enulose) 20 gm Q8 PO Last administered on 11/13/18at 05:36; Admin Dose 20 GM; Start 11/12/18 at 14:00 LUAN PAREDES MD Nov 13, 2018 16:24
--- NOTE | 2018-11-13 17:49 | CONS ---
Assessment/Plan Assessment/Plan Assessment/Plan (Daily) 1. Hyponatremia (123 today) due to Hypervolemic Hyponatremia in setting of acute liver failure - Na chloride tablet 1 gram PO TID - sp 3%Na Cl at 30 cc/hr x 6 hrs - fu am BMP 2. Rule out SIADH 3. Acute hepatic failure 4. Biliary colic vs cholecystitis 5. H/o alcohol abuse Plan: continue lasix 40mg po daily and spironolactone 50mg po daily Solu medrol 40mg iV daily Abdominal US in ED showed The right kidney measures 10.8 cm. There is normal echogenicity of the right kidney. There is no solid right renal mass, hydronephrosis, or calculus. There is a benign 1 cm cyst in the upper to mid right kidney. Thanks for consultation, will continue to follow up Patent seen in collaboration with Dr Rommel Baumann. dw staff Consultation Date/Type/Reason Admit Date/Time Nov 08, 2018 at 19:37 Initial Consult Date 11/09/18 Type of Consult NEPHROLOGY Reason for Consultation HYPONATREMIA Requesting Provider: SCOTT DOLL NP Date/Time of Note DATE: 11/13/18 TIME: 17:49 Detailed Summary Eyes: no complaints ENT: no complaints Respiratory: no complaints Cardiovascular: no complaints Gastrointestinal: pain Genitourinary: no complaints Musculoskeletal: no complaints Skin: other (yellow skin) Neurologic: no complaints Endocrine: no complaints Lymphatic: no complaints Psychological: nl mood/affect Exam/Review of Systems Exam Vitals Vital Signs Date Temp Pulse Resp B/P (MAP) Pulse Ox O2 O2 Flow FiO2 Time Delivery Rate 11/13/18 97.8 74 17 125/61 95 Room Air 16:06 (82) Intake and Output 11/12/18 11/12/18 11/13/18 1515:00 23:00 07:00 IntakeIntake Total 960 ml OutputOutput Total 1600 ml BalanceBalance -640 ml Constitutional: alert, well developed, obese Psych: nl mood/affect Eyes: nl lids, icteric ENMT: nl external ears & nose Neck: non-tender Respiratory: diminished breath sounds (bilaterally at bases) Cardiovascular: nl pulses, other (s1s2) Gastrointestinal: soft, tender Musculoskeletal: muscle weakness Extremities: normal pulses 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: nl speech, other (alert/responsive) Skin: other (jaundiced) Lymph: nontender Results Result Diagram: 4/20/19 0656 11/13/18 0656 Results 24hrs Laboratory Tests Test 11/13/18 06:56 White Blood Count 20.9 H Red Blood Count 2.90 L Hemoglobin 10.3 L Hematocrit 28.6 L Mean Corpuscular Volume 98.6 Mean Corpuscular Hemoglobin 35.5 H Mean Corpuscular Hemoglobin Concent 36.0 Red Cell Distribution Width 18.7 H Platelet Count 102 L Mean Platelet Volume 11.1 H Immature Granulocytes % 2.700 H Neutrophils % 71.8 Lymphocytes % 13.4 L Monocytes % 11.8 H Eosinophils % 0.1 Basophils % 0.2 Nucleated Red Blood Cells % 0.1 H Immature Granulocytes # 0.560 H Neutrophils # 15.0 H Lymphocytes # 2.8 Monocytes # 2.5 H Eosinophils # 0.0 Basophils # 0.1 Nucleated Red Blood Cells # 0.0 Prothrombin Time 24.2 H Prothrombin Time Ratio 1.9 INR International Normalized Ratio 2.16 Sodium Level 122 L Potassium Level 4.4 Chloride Level 87 L Carbon Dioxide Level 27 Anion Gap 8 Blood Urea Nitrogen 25 H Creatinine 0.73 Est Glomerular Filtrat Rate mL/min > 60 Glucose Level 91 Calcium Level 8.6 Total Bilirubin 21.9 H Direct Bilirubin 17.90 *H Indirect Bilirubin 4.0 H Aspartate Amino Transf (AST/SGOT) 446 H Alanine Aminotransferase (ALT/SGPT) 426 H Alkaline Phosphatase 266 H Total Protein 6.6 # Albumin 2.6 L Globulin 4.00 H Albumin/Globulin Ratio 0.65 Amylase Level 105 Lipase 358 H Medications Medication Current Medications IV Flush (NS 3 ml) 3 ml PER PROTOCOL IV ; Start 11/08/18 at 20:30 Docusate Sodium (Colace) 100 mg Q12H PRN PO .CONSTIPATION; Start 11/08/18 at 2 0:30 Bisacodyl (Dulcolax) 5 mg DAILY PRN PO .CONSTIPATION; Start 11/08/18 at 20:30 Ondansetron HCl (Zofran Inj) 4 mg Q4H PRN IV NAUSEA AND/OR VOMITING; Start 11/08/18 at 20:30 Methylprednisolone Sodium Succinate (Solu-Medrol) 40 mg DAILY IV Last administered on 11/13/18at 10:08; Admin Dose 40 MG; Start 11/08/18 at 20:30 Lisinopril (Zestril) 10 mg BID PO Last administered on 11/09/18 09:23; Admin Dose 10 MG; Start 11/08/18 at 21:00; Status Hold Thiamine HCl (Vitamin B1) 100 mg DAILY PO Last administered on 11/13/18 10:07; Admin Dose 100 MG; Start 11/09/18 at 09:00 Rifaximin (Xifaxan) 550 mg BID PO Last administered on 11/13/18 10:07; Admin Dose 550 MG; Start 11/09/18 at 00:00 Multivitamins Therapeutic (Theragran) 1 tab DAILY PO Last administered on 11/13/18 10:07; Admin Dose 1 TAB; Start 11/09/18 at 09:00 Folic Acid (Folic Acid) 1 mg DAILY PO Last administered on 11/13/18 10:06; Admin Dose 1 MG; Start 11/09/18 at 09:00 Ibuprofen (Motrin) 400 mg Q6H PRN PO MILD PAIN(1-3) OR TEMP>38C Last administered on 11/10/18 09:41; Admin Dose 400 MG; Start 11/09/18 at 11:30 Spironolactone (Aldactone) 100 mg DAILY PO Last administered on 11/13/18 10:07; Admin Dose 100 MG; Start 11/10/18 at 09:00 Furosemide (Lasix) 40 mg DAILY PO Last administered on 11/13/18 10:07; Admin Dose 40 MG; Start 11/09/18 at 12:00 Pantoprazole (Protonix Tab) 40 mg DAILY@06 PO Last administered on 11/13/18 05:35; Admin Dose 40 MG; Start 11/10/18 at 06:00 Sodium Chloride (Nacl) 1 gm TID PO Last administered on 11/13/18 13:53; Admin Dose 1 GM; Start 11/09/18 at 21:00 Ceftriaxone Sodium 50 ml @ 100 mls/hr Q24H IVPB Last administered on 11/13/18 13:53; Admin Dose 100 MLS/HR; Start 11/11/18 at 14:30 Lactulose (Enulose) 20 gm Q8 PO Last administered on 11/13/18 05:36; Admin Dose 20 GM; Start 11/12/18 at 14:00 CORTNEY DANIELS Nov 13, 2018 17:49
[2018-11-14] VITALS (10 sets, daily range): BP systolic 105–158; BP diastolic 45–60; PULSE 74–89; RESP 18–20
[2018-11-14] MEDS: LACTULOSE 30ML CUP PO SCH ×3 (05:55→21:04)
[2018-11-14] MEDS: PANTOPRAZOLE (EC) 40 MG TAB PO SCH (05:55)
[2018-11-14] MEDS: SODIUM CHLORIDE 1 GM TAB PO SCH ×3 (10:33→21:03)
[2018-11-14] MEDS: METHYLPREDNISOLONE 40 MG INJ IV SCH (10:33)
[2018-11-14] MEDS: MULTIVITAMINS THERAPEUTIC TAB PO SCH (10:34)
[2018-11-14] MEDS: RIFAXIMIN 550 MG TAB PO SCH ×2 (10:34→21:03)
[2018-11-14] MEDS: SPIRONOLACTONE 50 MG TAB PO SCH (10:36)
[2018-11-14] MEDS: FUROSEMIDE 40 MG TAB PO SCH (10:36)
[2018-11-14] MEDS: THIAMINE 100 MG TAB PO SCH (10:36)
[2018-11-14] MEDS: FOLIC ACID 1 MG TAB PO SCH (10:36)
--- NOTE | 2018-11-14 11:03 | PN ---
Date/Time of Note Date/Time of Note DATE: 11/14/18 TIME: 11:02 Assessment/Plan VTE Prophylaxis Risk score (from Ns)>0 risk: 2 SCD applied (from [facility] [place]): Yes Pharmacological prophylaxis: NA/contraindicated Pharm contraindication: low risk/ambulating Lines/Catheters [facility] Saline Lock Urinary Cath still in place: No Assessment/Plan Assessment/Plan 1. UTI, rocephin 2. Alcoholic liver disease with Liver Cirrhosis with portal hypertension /splenomegaly/ coagulopathy/ascites, on steroid and lactulose/rifaximin, Lasix, Aldactone follow up with GI. Bilirubin actually downtrended today. 3. Alcohol abuse, Counseled on cessation. 4. Hyponatremia, due to alcoholism/liver disease, free water restriction, oral Na 5. Acute pancreatitis, alcohol related, stable 6. Normocytic anemia, follow up with H/H 7. Thrombocytopenia, alcohol related, follow up with PLT 8. Morbid Obesity, life style changes advised 9.Hypertension, controlled Result Diagram: 11/13/18 0656 11/13/18 0656 Subjective 24 Hr Interval Summary Free Text/Dictation No acute overnight events. Patient ambulating, tolerating diet. No major concerns. Exam/Review of Systems Exam Vitals Vital Signs Date Temp Pulse Resp B/P (MAP) Pulse Ox O2 O2 Flow FiO2 Time Delivery Rate 11/14/18 74 08:01 11/14/18 97.3 20 127/60 96 Room Air 07:24 (82) Intake and Output 11/13/18 11/13/18 11/14/18 1515:00 23:00 07:00 IntakeIntake Total 1500 ml 750 ml BalanceBalance 1500 ml 750 ml Exam Constitutional: Morbidly obese man awake and alert. Head: normocephalic, atraumatic Eyes: Scleral icterus ENMT: nl external ears & nose, nl lips & teeth, nl nasal mucosa & septum Neck: supple, non-tender Respiratory: clear to auscultation, normal air movement; No congested cough, No crackles/rales, No diminished breath sounds, No intercostal retraction, No labored breathing, No respirations, No tactile fremitus, No wheezing, No other Cardiovascular: regular rate and rhythm, nl pulses; No bruits, No diastolic murmur, No edema, No gallop, No irregular rhythm, No jugular venous distention (JVD), No murmurs/extra sounds, No rub, No systolic murmur, No S3, No S4, No other Gastrointestinal: soft, nl liver, spleen Musculoskeletal: nl extremities to inspection Extremities: normal pulses; No calf tenderness, No cyanosis, No clubbing, No edema, No pitting pedal edema, No palpable cord, No tenderness, No other Results Results 24hrs Laboratory Tests Test 11/13/18 16:00 11/14/18 07:11 Stool Occult Blood POSITIVE Prothrombin Time 25.5 H Prothrombin Time Ratio 2.0 INR International Normalized Ratio 2.32 Medications Medication Current Medications IV Flush (NS 3 ml) 3 ml PER PROTOCOL IV ; Start 11/08/18 at 20:30 Docusate Sodium (Colace) 100 mg Q12H PRN PO .CONSTIPATION; Start 11/08/18 at 20:30 Bisacodyl (Dulcolax) 5 mg DAILY PRN PO .CONSTIPATION; Start 11/08/18 at 20:30 Ondansetron HCl (Zofran Inj) 4 mg Q4H PRN IV NAUSEA AND/OR VOMITING; Start 11/08/18 at 20:30 Methylprednisolone Sodium Succinate (Solu-Medrol) 40 mg DAILY IV Last administered on 11/14/18 10:33; Admin Dose 40 MG; Start 11/08/18 at 20:30 Lisinopril (Zestril) 10 mg BID PO Last administered on 11/09/18at 09:23; Admin Dose 10 MG; Start 11/08/18 at 21:00; Status Hold Thiamine HCl (Vitamin B1) 100 mg DAILY PO Last administered on 11/14/18 10:36; Admin Dose 100 MG; Start 11/09/18 at 09:00 Rifaximin (Xifaxan) 550 mg BID PO Last administered on 11/14/18 10:34; Admin Dose 550 MG; Start 11/09/18 at 00:00 Multivitamins Therapeutic (Theragran) 1 tab DAILY PO Last administered on 11/14/18 10:34; Admin Dose 1 TAB; Start 11/09/18 at 09:00 Folic Acid (Folic Acid) 1 mg DAILY PO Last administered on 11/14/18 10:36; Admin Dose 1 MG; Start 11/09/18 at 09:00 Ibuprofen (Motrin) 400 mg Q6H PRN PO MILD PAIN(1-3) OR TEMP>38C Last administered on 11/10/18 09:41; Admin Dose 400 MG; Start 11/09/18 at 11:30 Spironolactone (Aldactone) 100 mg DAILY PO Last administered on 11/14/18 10:36; Admin Dose 100 MG; Start 11/10/18 at 09:00 Furosemide (Lasix) 40 mg DAILY PO Last administered on 11/14/18 10:36; Admin Dose 40 MG; Start 11/09/18 at 12:00 Pantoprazole (Protonix Tab) 40 mg DAILY@06 PO Last administered on 11/14/18 05:55; Admin Dose 40 MG; Start 11/10/18 at 06:00 Sodium Chloride (Nacl) 1 gm TID PO Last administered on 11/14/18 10:33; Admin Dose 1 GM; Start 11/09/18 at 21:00 Ceftriaxone Sodium 50 ml @ 100 mls/hr Q24H IVPB Last administered on 11/13/18at 13:53; Admin Dose 100 MLS/HR; Start 11/11/18 at 14:30 Lactulose (Enulose) 20 gm Q8 PO Last administered on 11/14/18 05:55; Admin Dose 20 GM; Start 11/12/18 at 14:00 LUAN PAREDES MD Nov 14, 2018 11:03
--- NOTE | 2018-11-14 15:37 | PN ---
Date/Time of Note Date/Time of Note DATE: 11/14/18 TIME: 15:25 Assessment/Plan VTE Prophylaxis Risk score (from Ns)>0 risk: 2 SCD applied (from Ns): Yes Pharmacological prophylaxis: NA/contraindicated Pharm contraindication: liver dx Lines/Catheters [facility]from [facility] Saline Lock Urinary Cath still in place: No Assessment/Plan Assessment/Plan Assessment: Decompensated liver cirrhosis Alcoholic hepatitis Hepatic encephalopathy Leukocytosis -patient is on steroids Coagulopathy Hematochezia Hematuria Thrombocytopenia Transaminitis Pancreatitis -lipase improving Hyperbilirubinemia UTI Obesity Hypertension No history of EGD or colonoscopy Plan: Recheck ammonia level Continue 2 g Na diet Continue rifaximin Continue Lactulose Continue methylprednisolone Continue Aldactone Monitor LFTs - slowly improving If patient improves recommend EGD for variceal screening and colonoscopy for CRC screening and hematochezia Patient seen in collaboration with Dr. Nuñez Subjective: Patient reports he is more sleepy and appears more lethargic today. He reports loss of appetite. Denies nausea, vomiting, or worsening abdominal pain. Slight improvement in LFT's noted. Per RN taking lactulose and had 5 bowel movements yesterday. Will recheck ammonia level. Exam PHYSICAL EXAMINATION: GENERAL: Well developed, well nourished, obese, awake & oriented x 3, in no acute distress SKIN: No lesions, profound jaundice, ecchymosis on upper and lower extremities LYMPHATIC: No palpable lymphadenopathy. HEAD: Normocephalic, atraumatic, no tenderness. EYES: Pupils equal reactive to light and accommodation, full extraocular movements, sclera-icteric, no discharge. EARS/NOSE AND THROAT: Ears normal, nose normal, oropharynx normal, oral membra karol well hydrated without lesions. NECK: Supple, no masses, thyroid normal, JVP within normal limits, carotids normal without bruits. CHEST: Inspection within normal limits. CARDIOVASCULAR: Heart: Regular rate and rhythm, no murmurs, gallops or rubs. Peripheral pulses present within normal limits, no cyanosis, clubbing or edemas. No pulsatile abdominal mass RESPIRATORY: Lungs clear to auscultation and percussion, no wheezing, no rubs GASTROINTESTINAL AND LIVER: Abdomen: Soft, generalized tenderness, non- distended, no hernias, no masses, no organomegaly, +ascites, no guarding, no rebound tenderness, normoactive bowel sounds. Rectal: Deferred. GENITOURINARY: [Male genitalia within normal limits. EXTREMITIES: No cyanosis, clubbing or edema Result Diagram: 11/14/18 1056 11/14/18 1056 Results 24hrs Laboratory Tests Test 11/13/18 16:00 11/14/18 07:11 11/14/18 10:56 Stool Occult Blood POSITIVE Prothrombin Time 25.5 H Prothrombin Time Ratio 2.0 INR International Normalized Ratio 2.32 White Blood Count 23.7 H Red Blood Count 2.78 L Hemoglobin 9.9 L Hematocrit 27.9 L Mean Corpuscular Volume 100.4 Mean Corpuscular Hemoglobin 35.6 H Mean Corpuscular Hemoglobin Concent 35.5 Red Cell Distribution Width 18.7 H Platelet Count 106 L Mean Platelet Volume 10.9 H Immature Granulocytes % 4.600 H Neutrophils % 67.7 Lymphocytes % 16.3 Monocytes % 11.0 Eosinophils % 0.1 Basophils % 0.3 Nucleated Red Blood Cells % 0.3 H Immature Granulocytes # 1.090 H Neutrophils # 16.1 H Lymphocytes # 3.9 H Monocytes # 2.6 H Eosinophils # 0.0 Basophils # 0.1 Nucleated Red Blood Cells # 0.1 H Sodium Level 123 L Potassium Level 4.4 Chloride Level 87 L Carbon Dioxide Level 26 Anion Gap 10 Blood Urea Nitrogen 32 H Creatinine 0.85 Est Glomerular Filtrat Rate mL/min > 60 Glucose Level 109 Calcium Level 8.3 L CC: LASHON NUÑEZ MD ; Exam/Review of Systems Exam Vitals Vital Signs Date Temp Pulse Resp B/P (MAP) Pulse Ox O2 O2 Flow FiO2 Time Delivery Rate 11/14/18 89 12:01 11/14/18 97.8 20 105/45 96 Room Air 11:10 (65) Intake and Output 11/13/18 11/13/18 11/14/18 1414:59 22:59 06:59 IntakeIntake Total 1500 ml 750 ml BalanceBalance 1500 ml 750 ml Results Results 24hrs Laboratory Tests Test 11/13/18 16:00 11/14/18 07:11 11/14/18 10:56 Stool Occult Blood POSITIVE Prothrombin Time 25.5 H Prothrombin Time Ratio 2.0 INR International Normalized Ratio 2.32 White Blood Count 23.7 H Red Blood Count 2.78 L Hemoglobin 9.9 L Hematocrit 27.9 L Mean Corpuscular Volume 100.4 Mean Corpuscular Hemoglobin 35.6 H Mean Corpuscular Hemoglobin Concent 35.5 Red Cell Distribution Width 18.7 H Platelet Count 106 L Mean Platelet Volume 10.9 H Immature Granulocytes % 4.600 H Neutrophils % 67.7 Lymphocytes % 16.3 Monocytes % 11.0 Eosinophils % 0.1 Basophils % 0.3 Nucleated Red Blood Cells % 0.3 H Immature Granulocytes # 1.090 H Neutrophils # 16.1 H Lymphocytes # 3.9 H Monocytes # 2.6 H Eosinophils # 0.0 Basophils # 0.1 Nucleated Red Blood Cells # 0.1 H Sodium Level 123 L Potassium Level 4.4 Chloride Level 87 L Carbon Dioxide Level 26 Anion Gap 10 Blood Urea Nitrogen 32 H Creatinine 0.85 Est Glomerular Filtrat Rate mL/min > 60 Glucose Level 109 Calcium Level 8.3 L Medications Medication Current Medications IV Flush (NS 3 ml) 3 ml PER PROTOCOL IV ; Start 11/08/18 at 20:30 Docusate Sodium (Colace) 100 mg Q12H PRN PO .CONSTIPATION; Start 11/08/18 at 20:30 Bisacodyl (Dulcolax) 5 mg DAILY PRN PO .CONSTIPATION; Start 11/08/18 at 20:30 Ondansetron HCl (Zofran Inj) 4 mg Q4H PRN IV NAUSEA AND/OR VOMITING; Start 11/08/18 at 20:30 Methylprednisolone Sodium Succinate (Solu-Medrol) 40 mg DAILY IV Last administered on 11/14/18at 10:33; Admin Dose 40 MG; Start 11/08/18 at 20:30 Lisinopril (Zestril) 10 mg BID PO Last administered on 11/09/18at 09:23; Admin Dose 10 MG; Start 11/08/18 at 21:00; Status Hold Thiamine HCl (Vitamin B1) 100 mg DAILY PO Last administered on 11/14/18 10:36; Admin Dose 100 MG; Start 11/09/18 at 09:00 Rifaximin (Xifaxan) 550 mg BID PO Last administered on 11/14/18 10:34; Admin Dose 550 MG; Start 11/09/18 at 00:00 Multivitamins Therapeutic (Theragran) 1 tab DAILY PO Last administered on 11/14/18 10:34; Admin Dose 1 TAB; Start 11/09/18 at 09:00 Folic Acid (Folic Acid) 1 mg DAILY PO Last administered on 11/14/18 10:36; Admin Dose 1 MG; Start 11/09/18 at 09:00 Ibuprofen (Motrin) 400 mg Q6H PRN PO MILD PAIN(1-3) OR TEMP>38C Last administered on 11/10/18 09:41; Admin Dose 400 MG; Start 11/09/18 at 11:30 Spironolactone (Aldactone) 100 mg DAILY PO Last administered on 11/14/18 10:36; Admin Dose 100 MG; Start 11/10/18 at 09:00 Furosemide (Lasix) 40 mg DAILY PO Last administered on 11/14/18 10:36; Admin Dose 40 MG; Start 11/09/18 at 12:00 Pantoprazole (Protonix Tab) 40 mg DAILY@06 PO Last administered on 11/14/18 05:55; Admin Dose 40 MG; Start 11/10/18 at 06:00 Sodium Chloride (Nacl) 1 gm TID PO Last administered on 11/14/18 10:33; Admin Dose 1 GM; Start 11/09/18 at 21:00 Ceftriaxone Sodium 50 ml @ 100 mls/hr Q24H IVPB Last administered on 11/13/18 13:53; Admin Dose 100 MLS/HR; Start 11/11/18 at 14:30 Lactulose (Enulose) 20 gm Q8 PO Last administered on 11/14/18 05:55; Admin Dose 20 GM; Start 11/12/18 at 14:00 POLINA RIVERA NP Nov 14, 2018 15:36
[2018-11-14] MEDS: CEFTRIAXONE 1 GM/50 ML (PMX) 50 ML IVPB SCH (15:40)
--- NOTE | 2018-11-14 17:22 | CONS ---
Assessment/Plan Assessment/Plan Hospital Course (Demo Recall) 1. Hyponatremia (123 today) due to Hypervolemic Hyponatremia in setting of acute liver failure - Na chloride tablet 1 gram PO TID - sp 3%Na Cl at 30 cc/hr x 6 hrs - fu am BMP 2. Rule out SIADH 3. Acute hepatic failure 4. Biliary colic vs cholecystitis 5. H/o alcohol abuse Plan: continue lasix 40mg po daily and spironolactone 50mg po daily Solu medrol 40mg iV daily Abdominal US in ED showed The right kidney measures 10.8 cm. There is normal echogenicity of the right kidney. There is no solid right renal mass, hydronephrosis, or calculus. There is a benign 1 cm cyst in the upper to mid right kidney. Thanks for consultation, will continue to follow up Patent seen in collaboration with Dr Rommel Baumann. dw staff Consultation Date/Type/Reason Admit Date/Time Nov 08, 2018 at 7:37 pm Initial Consult Date 11/09/18 Type of Consult NEPHROLOGY Requesting Provider: SCOTT DOLL NP Date/Time of Note DATE: 11/14/18 TIME: 17:22 Exam/Review of Systems Exam Vitals Vital Signs Date Temp Pulse Resp B/P (MAP) Pulse Ox O2 O2 Flow FiO2 Time Delivery Rate 11/14/18 77 16:01 11/14/18 97.8 20 124/59 95 Room Air 15:57 (80) Intake and Output 11/13/18 11/13/18 11/14/18 1515:00 23:00 07:00 IntakeIntake Total 1500 ml 750 ml BalanceBalance 1500 ml 750 ml Results Result Diagram: 11/14/18 1056 11/14/18 1056 Results 24hrs Laboratory Tests Test 11/14/18 07:11 11/14/18 10:56 11/14/18 15:40 Prothrombin Time 25.5 H Prothrombin Time Ratio 2.0 INR International Normalized Ratio 2.32 White Blood Count 23.7 H Red Blood Count 2.78 L Hemoglobin 9.9 L Hematocrit 27.9 L Mean Corpuscular Volume 100.4 Mean Corpuscular Hemoglobin 35.6 H Mean Corpuscular Hemoglobin Concent 35.5 Red Cell Distribution Width 18.7 H Platelet Count 106 L Mean Platelet Volume 10.9 H Immature Granulocytes % 4.600 H Neutrophils % 67.7 Lymphocytes % 16.3 Monocytes % 11.0 Eosinophils % 0.1 Basophils % 0.3 Nucleated Red Blood Cells % 0.3 H Immature Granulocytes # 1.090 H Neutrophils # 16.1 H Lymphocytes # 3.9 H Monocytes # 2.6 H Eosinophils # 0.0 Basophils # 0.1 Nucleated Red Blood Cells # 0.1 H Sodium Level 123 L Potassium Level 4.4 Chloride Level 87 L Carbon Dioxide Level 26 Anion Gap 10 Blood Urea Nitrogen 32 H Creatinine 0.85 Est Glomerular Filtrat Rate mL/min > 60 Glucose Level 109 Calcium Level 8.3 L Ammonia 15 Medications Medication Current Medications IV Flush (NS 3 ml) 3 ml PER PROTOCOL IV ; Start 11/08/18 at 20:30 Docusate Sodium (Colace) 100 mg Q12H PRN PO .CONSTIPATION; Start 11/08/18 at 20:30 Bisacodyl (Dulcolax) 5 mg DAILY PRN PO .CONSTIPATION; Start 11/08/18 at 20:30 Ondansetron HCl (Zofran Inj) 4 mg Q4H PRN IV NAUSEA AND/OR VOMITING; Start 11/08/18 at 20:30 Methylprednisolone Sodium Succinate (Solu-Medrol) 40 mg DAILY IV Last adm inistered on 11/14/18 10:33; Admin Dose 40 MG; Start 11/08/18 at 20:30 Lisinopril (Zestril) 10 mg BID PO Last administered on 11/09/18 09:23; Admin Dose 10 MG; Start 11/08/18 at 21:00; Status Hold Thiamine HCl (Vitamin B1) 100 mg DAILY PO Last administered on 11/14/18 10:36; Admin Dose 100 MG; Start 11/09/18 at 09:00 Rifaximin (Xifaxan) 550 mg BID PO Last administered on 11/14/18 10:34; Admin Dose 550 MG; Start 11/09/18 at 00:00 Multivitamins Therapeutic (Theragran) 1 tab DAILY PO Last administered on 11/14/18 10:34; Admin Dose 1 TAB; Start 11/09/18 at 09:00 Folic Acid (Folic Acid) 1 mg DAILY PO Last administered on 11/14/18 10:36; Admin Dose 1 MG; Start 11/09/18 at 09:00 Ibuprofen (Motrin) 400 mg Q6H PRN PO MILD PAIN(1-3) OR TEMP>38C Last administered on 11/10/18 09:41; Admin Dose 400 MG; Start 11/09/18 at 11:30 Spironolactone (Aldactone) 100 mg DAILY PO Last administered on 11/14/18 10:36; Admin Dose 100 MG; Start 11/10/18 at 09:00 Furosemide (Lasix) 40 mg DAILY PO Last administered on 11/14/18 10:36; Admin Dose 40 MG; Start 11/09/18 at 12:00 Pantoprazole (Protonix Tab) 40 mg DAILY@06 PO Last administered on 11/14/18 05:55; Admin Dose 40 MG; Start 11/10/18 at 06:00 Sodium Chloride (Nacl) 1 gm TID PO Last administered on 11/14/18 15:39; Admin Dose 1 GM; Start 11/09/18 at 21:00 Ceftriaxone Sodium 50 ml @ 100 mls/hr Q24H IVPB Last administered on 11/14/18 15:40; Admin Dose 100 MLS/HR; Start 11/11/18 at 14:30 Lactulose (Enulose) 20 gm Q8 PO Last administered on 11/14/18 15:39; Admin Dose 20 GM; Start 11/12/18 at 14:00 CORTNEY DANIELS Nov 14, 2018 5:22 pm
[2018-11-15] VITALS (13 sets, daily range): BP systolic 103–122; BP diastolic 55–65; PULSE 20–85; RESP 18–20
[2018-11-15] MEDS: LACTULOSE 30ML CUP PO SCH ×3 (05:57→21:35)
[2018-11-15] MEDS: PANTOPRAZOLE (EC) 40 MG TAB PO SCH (05:57)
[2018-11-15] MEDS: RIFAXIMIN 550 MG TAB PO SCH ×2 (09:51→21:36)
[2018-11-15] MEDS: MULTIVITAMINS THERAPEUTIC TAB PO SCH (09:51)
[2018-11-15] MEDS: THIAMINE 100 MG TAB PO SCH (09:51)
[2018-11-15] MEDS: FOLIC ACID 1 MG TAB PO SCH (09:51)
[2018-11-15] MEDS: SODIUM CHLORIDE 1 GM TAB PO SCH ×3 (09:51→21:36)
[2018-11-15] MEDS: SPIRONOLACTONE 50 MG TAB PO SCH (09:52)
[2018-11-15] MEDS: METHYLPREDNISOLONE 40 MG INJ IV SCH (09:52)
[2018-11-15] MEDS: FUROSEMIDE 40 MG TAB PO SCH (09:53)
--- NOTE | 2018-11-15 11:05 | PN ---
Date/Time of Note Date/Time of Note DATE: 11/15/18 TIME: 10:49 Assessment/Plan VTE [place]axis [place] [facility] [place]: 2 [place]CD [place] [facility] [place] Yes Pharmacological prophylaxis: other Pharm contraindication: liver dx Lines/Catheters IV Catheter Type (from [facility] Saline Lock Urinary Cath still in place: No Assessment/Plan Assessment/Plan 1. Hyponatremia, due to alcoholism/liver disease, free water restriction, oral Na 2. Alcoholic liver disease with Liver Cirrhosis with portal hypertension/splenomegaly/ coagulopathy/ascites, on steroid and lactulose/rifaximin, Lasix, Aldactone follow up with GI 3. Alcohol abuse, Counseled on cessation. 4. Acute pancreatitis, alcohol related, stable 5. UTI, on rocephin 6. Normocytic anemia, follow up with H/H 7. Thrombocytopenia, alcohol related, follow up with PLT 8. Morbid Obesity, life style changes advised 9.Hypertension, controlled Result Diagram: 11/15/1862411/15/1825 Results 24hrs Laboratory Tests Test 11/14/18 10:56 11/14/18 15:40 11/15/18 06:25 White Blood Count 23.7 H 26.4 H Red Blood Count 2.78 L 2.94 L Hemoglobin 9.9 L 10.4 L Hematocrit 27.9 L 29.1 L Mean Corpuscular Volume 100.4 99.0 Mean Corpuscular Hemoglobin 35.6 H 35.4 H Mean Corpuscular Hemoglobin Concent 35.5 35.7 Red Cell Distribution Width 18.7 H 18.5 H Platelet Count 106 L 105 L Mean Platelet Volume 10.9 H 10.9 H Immature Granulocytes % 4.600 H 6.800 H Neutrophils % 67.7 Lymphocytes % 16.3 Monocytes % 11.0 Eosinophils % 0.1 Basophils % 0.3 Nucleated Red Blood Cells % 0.3 H 0.5 H Immature Granulocytes # 1.090 H 1.790 H Neutrophils # 16.1 H Lymphocytes # 3.9 H Monocytes # 2.6 H Eosinophils # 0.0 Basophils # 0.1 Nucleated Red Blood Cells # 0.1 H Sodium Level 123 L 121 L Potassium Level 4.4 4.5 Chloride Level 87 L 86 L Carbon Dioxide Level 26 26 Anion Gap 10 9 Blood Urea Nitrogen 32 H 34 H Creatinine 0.85 0.80 Est Glomerular Filtrat Rate mL/min > 60 > 60 Glucose Level 109 93 Calcium Level 8.3 L 8.3 L Ammonia 15 Segmented Neutrophils % (Manual) 69 Lymphocytes % (Manual) 12 L Reactive Lymphocytes % (Manual) 3 H Monocytes % (Manual) 13 H Eosinophils % (Manual) 1 Myelocytes % (Manual) 2 H Lymphocytes (Manual) 3.1 H Reactive Lymphocytes # 0.7 H Monocytes # (Manual) 3.4 H Myelocytes # 0.5 H White Cell Morphology Comment @See below Platelet Estimate DECREASED Polychromasia 2+ Poikilocytosis 3+ Anisocytosis 2+ Macrocytosis 2+ Red Cell Morphology Comment @See below Phosphorus Level 3.9 Magnesium Level 2.7 H Subjective 24 Hr Interval Summary Free Text/Dictation still weak, no fever Exam/Review of Systems Exam Vitals Vital Signs Date Temp Pulse Resp B/P (MAP) Pulse Ox O2 O2 Flow FiO2 Time Delivery Rate 11/15/18 80 08:01 11/15/18 98.4 20 118/56 92 Room Air 07:25 (76) Intake and Output 11/14/18 11/14/18 11/15/18 1515:00 23:00 07:00 IntakeIntake Total 700 ml 300 ml BalanceBalance 700 ml 300 ml Constitutional: alert, oriented, well developed Head: normocephalic, atraumatic Eyes: nl conjunctiva, EOMI, nl lids, PERRL ENMT: nl external ears & nose, nl lips & teeth, nl nasal mucosa & septum Neck: supple, non-tender Respiratory: clear to auscultation, normal air movement; No congested cough, No crackles/rales, No diminished breath sounds, No intercostal retraction, No labored breathing, No respirations, No tactile fremitus, No wheezing, No other Cardiovascular: regular rate and rhythm, nl pulses; No bruits, No diastolic murmur, No edema, No gallop, No irregular rhythm, No jugular venous distention (JVD), No murmurs/extra sounds, No rub, No systolic murmur, No S3, No S4, No other Gastrointestinal: soft, nl liver, spleen Musculoskeletal: nl extremities to inspection Extremities: normal pulses; No calf tenderness, No cyanosis, No clubbing, No edema, No pitting pedal edema, No palpable cord, No tenderness, No other 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: OFFICE MANAGER II-XII intact, nl mental status, nl speech, nl strength Results Results 24hrs Laboratory Tests Test 11/14/18 10:56 11/14/18 15:40 11/15/18 06:25 White Blood Count 23.7 H 26.4 H Red Blood Count 2.78 L 2.94 L Hemoglobin 9.9 L 10.4 L Hematocrit 27.9 L 29.1 L Mean Corpuscular Volume 100.4 99.0 Mean Corpuscular Hemoglobin 35.6 H 35.4 H Mean Corpuscular Hemoglobin Concent 35.5 35.7 Red Cell Distribution Width 18.7 H 18.5 H Platelet Count 106 L 105 L Mean Platelet Volume 10.9 H 10.9 H Immature Granulocytes % 4.600 H 6.800 H Neutrophils % 67.7 Lymphocytes % 16.3 Monocytes % 11.0 Eosinophils % 0.1 Basophils % 0.3 Nucleated Red Blood Cells % 0.3 H 0.5 H Immature Granulocytes # 1.090 H 1.790 H Neutrophils # 16.1 H Lymphocytes # 3.9 H Monocytes # 2.6 H Eosinophils # 0.0 Basophils # 0.1 Nucleated Red Blood Cells # 0.1 H Sodium Level 123 L 121 L Potassium Level 4.4 4.5 Chloride Level 87 L 86 L Carbon Dioxide Level 26 26 Anion Gap 10 9 Blood Urea Nitrogen 32 H 34 H Creatinine 0.85 0.80 Est Glomerular Filtrat Rate mL/min > 60 > 60 Glucose Level 109 93 Calcium Level 8.3 L 8.3 L Ammonia 15 Segmented Neutrophils % (Manual) 69 Lymphocytes % (Manual) 12 L Reactive Lymphocytes % (Manual) 3 H Monocytes % (Manual) 13 H Eosinophils % (Manual) 1 Myelocytes % (Manual) 2 H Lymphocytes (Manual) 3.1 H Reactive Lymphocytes # 0.7 H Monocytes # (Manual) 3.4 H Myelocytes # 0.5 H White Cell Morphology Comment @See below Platelet Estimate DECREASED Polychromasia 2+ Poikilocytosis 3+ Anisocytosis 2+ Macrocytosis 2+ Red Cell Morphology Comment @See below Phosphorus Level 3.9 Magnesium Level 2.7 H Medications Medication Current Medications IV Flush (NS 3 ml) 3 ml PER PROTOCOL IV ; Start 11/08/18 at 20:30 Docusate Sodium (Colace) 100 mg Q12H PRN PO .CONSTIPATION; Start 11/08/18 at 20:30 Bisacodyl (Dulcolax) 5 mg DAILY PRN PO .CONSTIPATION; Start 11/08/18 at 20:30 Ondansetron HCl (Zofran Inj) 4 mg Q4H PRN IV NAUSEA AND/OR VOMITING; Start 11/08/18 at 20:30 Methylprednisolone Sodium Succinate (Solu-Medrol) 40 mg DAILY IV Last administered on 11/15/18 09:52; Admin Dose 40 MG; Start 11/08/18 at 20:30 Lisinopril (Zestril) 10 mg BID PO Last administered on 11/09/18 09:23; Admin Dose 10 MG; Start 11/08/18 at 21:00; Status Hold Thiamine HCl (Vitamin B1) 100 mg DAILY PO Last administered on 11/15/18 09:51; Admin Dose 100 MG; Start 11/09/18 at 09:00 Rifaximin (Xifaxan) 550 mg BID PO Last administered on 11/15/18 09:51; Admin Dose 550 MG; Start 11/09/18 at 00:00 Multivitamins Therapeutic (Theragran) 1 tab DAILY PO Last administered on 11/15 09:51; Admin Dose 1 TAB; Start 11/09/18 at 09:00 Folic Acid (Folic Acid) 1 mg DAILY PO Last administered on 11/15/18 09:51; Admin Dose 1 MG; Start 11/09/18 at 09:00 Ibuprofen (Motrin) 400 mg Q6H PRN PO MILD PAIN(1-3) OR TEMP>38C Last administered on 11/10/18 09:41; Admin Dose 400 MG; Start 11/09/18 at 11:30 Spironolactone (Aldactone) 100 mg DAILY PO Last administered on 11/15/18 09:52; Admin Dose 100 MG; Start 11/10/18 at 09:00 Furosemide (Lasix) 40 mg DAILY PO Last administered on 11/15/18 09:53; Admin Dose 40 MG; Start 11/09/18 at 12:00 Pantoprazole (Protonix Tab) 40 mg DAILY@06 PO Last administered on 11/15/18 05:57; Admin Dose 40 MG; Start 11/10/18 at 06:00 Sodium Chloride (Nacl) 1 gm TID PO Last administered on 11/15/18at 09:51; Admin Dose 1 GM; Start 11/09/18 at 21:00 Ceftriaxone Sodium 50 ml @ 100 mls/hr Q24H IVPB Last administered on 11/14/18at 15:40; Admin Dose 100 MLS/HR; Start 11/11/18 at 14:30 Lactulose (Enulose) 20 gm Q8 PO Last administered on 11/15/18at 05:57; Admin Dose 20 GM; Start 11/12/18 at 14:00 MACARENA MOONEY MD Nov 15, 2018 10:59
[2018-11-15] MEDS: IBUPROFEN 400 MG TAB PO PRN (11:09)
[2018-11-15] MEDS ORDERED: NACL 3% 500 ML IV SCH (12:00)
--- NOTE | 2018-11-15 12:00 | CONS ---
Assessment/Plan Assessment/Plan Assessment/Plan (Daily) 1. Hyponatremia (123 today) due to Hypervolemic Hyponatremia in setting of acute liver failure - Na chloride tablet 2 gram PO TID - will give hypertonic 3% saline at 30 cc/ hr x 12 hr 2. 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 Acute hepatic failure 4. Biliary colic vs cholecystitis 5. H/o alcohol abuse Plan: continue lasix 40mg po daily and spironolactone 100mg po daily - Lisinopril 10mg PO BID Solu medrol 40mg iV daily Abdominal US in ED showed The right kidney measures 10.8 cm. There is normal echogenicity of the right kidney. There is no solid right renal mass, hydronephrosis, or calculus. There is a benign 1 cm cyst in the upper to mid right kidney. will follow up Consultation Date/Type/Reason Admit Date/Time Nov 08, 2018 at 19:37 Initial Consult Date 11/09/18 Type of Consult NEPHROLOGY Requesting Provider: SCOTT DOLL NP Date/Time of Note DATE: 11/15/18 TIME: 12:00 Exam/Review of Systems Exam Vitals Vital Signs Date Temp Pulse Resp B/P (MAP) Pulse Ox O2 O2 Flow FiO2 Time Delivery Rate 11/15/18 98.6 61 20 118/56 93 Room Air 11:17 (76) Intake and Output 11/14/18 11/14/18 11/15/18 1515:00 23:00 07:00 IntakeIntake Total 700 ml 300 ml BalanceBalance 700 ml 300 ml Exam Constitutional: alert, well developed, obese. + Jaundice Respiratory: diminished breath sounds (bilaterally at bases) Cardiovascular: nl pulses, other (s1s2) Gastrointestinal: soft, tender Musculoskeletal: muscle weakness Extremities: normal pulses 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: nl speech, other (alert/responsive) Skin: other (jaundiced) Results Result Diagram: 11/15/18 0625 11/15/18 0625 Results 24hrs Laboratory Tests Test 11/14/18 15:40 11/15/18 06:25 Ammonia 15 White Blood Count 26.4 H Red Blood Count 2.94 L Hemoglobin 10.4 L Hematocrit 29.1 L Mean Corpuscular Volume 99.0 Mean Corpuscular Hemoglobin 35.4 H Mean Corpuscular Hemoglobin Concent 35.7 Red Cell Distribution Width 18.5 H Platelet Count 105 L Mean Platelet Volume 10.9 H Immature Granulocytes % 6.800 H Neutrophils % Segmented Neutrophils % (Manual) 69 Lymphocytes % Lymphocytes % (Manual) 12 L Reactive Lymphocytes % (Manual) 3 H Monocytes % Monocytes % (Manual) 13 H Eosinophils % Eosinophils % (Manual) 1 Basophils % Myelocytes % (Manual) 2 H Nucleated Red Blood Cells % 0.5 H Immature Granulocytes # 1.790 H Neutrophils # Lymphocytes (Manual) 3.1 H Lymphocytes # Reactive Lymphocytes # 0.7 H Monocytes # Monocytes # (Manual) 3.4 H Eosinophils # Basophils # Myelocytes # 0.5 H Nucleated Red Blood Cells # White Cell Morphology Comment @See below Platelet Estimate DECREASED Polychromasia 2+ Poikilocytosis 3+ Anisocytosis 2+ Macrocytosis 2+ Red Cell Morphology Comment @See below Sodium Level 121 L Potassium Level 4.5 Chloride Level 86 L Carbon Dioxide Level 26 Anion Gap 9 Blood Urea Nitrogen 34 H Creatinine 0.80 Est Glomerular Filtrat Rate mL/min > 60 Glucose Level 93 Calcium Level 8.3 L Phosphorus Level 3.9 Magnesium Level 2.7 H Medications Medication Current Medications IV Flush (NS 3 ml) 3 ml PER PROTOCOL IV ; Start 11/08/18 at 20:30 Docusate Sodium (Colace) 100 mg Q12H PRN PO .CONSTIPATION; Start 11/08/18 at 20:30 Bisacodyl (Dulcolax) 5 mg DAILY PRN PO .CONSTIPATION; Start 11/08/18 at 20:30 Ondansetron HCl (Zofran Inj) 4 mg Q4H PRN IV NAUSEA AND/OR VOMITING; Start 11/08/18 at 20:30 Methylprednisolone Sodium Succinate (Solu-Medrol) 40 mg DAILY IV Last administered on 11/15/18at 09:52; Admin Dose 40 MG; Start 11/08/18 at 20:30 Lisinopril (Zestril) 10 mg BID PO Last administered on 11/09/18at 09:23; Admin Dose 10 MG; Start 11/08/18 at 21:00; Status Hold Thiamine HCl (Vitamin B1) 100 mg DAILY PO Last administered on 11/15/18at 09:51; Admin Dose 100 MG; Start 11/09/18 at 09:00 Rifaximin (Xifaxan) 550 mg BID PO Last administered on 11/15/18 09:51; Admin Dose 550 MG; Start 11/09/18 at 00:00 Multivitamins Therapeutic (Theragran) 1 tab DAILY PO Last administered on 11/15/18 09:51; Admin Dose 1 TAB; Start 11/09/18 at 09:00 Folic Acid (Folic Acid) 1 mg DAILY PO Last administered on 11/15/18 09:51; Admin Dose 1 MG; Start 11/09/18 at 09:00 Ibuprofen (Motrin) 400 mg Q6H PRN PO MILD PAIN(1-3) OR TEMP>38C Last a dministered on 11/15/18 11:09; Admin Dose 400 MG; Start 11/09/18 at 11:30 Spironolactone (Aldactone) 100 mg DAILY PO Last administered on 11/15/18 09:52; Admin Dose 100 MG; Start 11/10/18 at 09:00 Furosemide (Lasix) 40 mg DAILY PO Last administered on 11/15/18 09:53; Admin Dose 40 MG; Start 11/09/18 at 12:00 Pantoprazole (Protonix Tab) 40 mg DAILY@06 PO Last administered on 11/15/18 05:57; Admin Dose 40 MG; Start 11/10/18 at 06:00 Ceftriaxone Sodium 50 ml @ 100 mls/hr Q24H IVPB Last administered on 11/14/18 15:40; Admin Dose 100 MLS/HR; Start 11/11/18 at 14:30 Lactulose (Enulose) 20 gm Q8 PO Last administered on 11/15/18 05:57; Admin Dose 20 GM; Start 11/12/18 at 14:00 Sodium Chloride (Nacl) 2 gm TID PO ; Start 11/15/18 at 13:00 BUCK CARO MD Nov 15, 2018 12:00
--- NOTE | 2018-11-15 12:49 | PN ---
Date/Time of Note Date/Time of Note DATE: 11/15/18 TIME: 12:38 Assessment/Plan VTE Prophylaxis Risk score (from [facility])>0 risk: 2 SCD applied (from [facility]): No SCD contraindicated: other Pharmacological prophylaxis: other Lines/Catheters IV C[facility]ter Type (from [facility] Saline Lock Urinary Cath still in place: No Assessment/Plan Assessment/Plan Decompensated liver cirrhosis from alcoholism. Alcoholic hepatitis Hx of hepatic encephalopathy - normal ammonia levels Leukocytosis -due to steroids for alcoholic hepatitis Coagulopathy: hx of hematochezia, hematuria - resolved. Thrombocytopenia Transaminitis Pancreatitis -lipase improving UTI Obesity Hypertension No history of EGD or colonoscopy Hyponatremia. Plan: Continue rifaximin Continue Lactulose, reduce if diarrhea. Continue methylprednisolone Continue Aldactone Monitor LFTs - slowly improving Outpatient EGD for variceal screening and colonoscopy for CRC screening and hematochezia Hyponatremia (likely from liver disease). -agree with renal management of hyponatremia. -avoid lasix -pt receiving hypertonic saline and saline tabs. -monitoring Subjective: Patient reports he is feeling "unwell". He reports loss of appetite. Denies nausea, vomiting, or worsening abdominal pain. No diarrhea. No rectal bleeding. Had a "normal" BM this am. Exam PHYSICAL EXAMINATION: GENERAL: Well developed, well nourished, obese, awake & oriented x 3, in no acute distress SKIN: No lesions, profound jaundice, ecchymosis on upper and lower extremities LYMPHATIC: No palpable lymphadenopathy. HEAD: Normocephalic, atraumatic, no tenderness. EYES: Pupils equal reactive to light and accommodation, full extraocular movements, sclera-icteric, no discharge. EARS/NOSE AND THROAT: Ears normal, nose normal, oropharynx normal, oral membranes well hydrated without lesions. NECK: Supple, no masses, thyroid normal, JVP within normal limits, carotids normal without bruits. CHEST: Inspection within normal limits. CARDIOVASCULAR: Heart: Regular rate and rhythm, no murmurs, gallops or rubs. Pe ripheral pulses present within normal limits, no cyanosis, clubbing or edemas. No pulsatile abdominal mass RESPIRATORY: Lungs clear to auscultation and percussion, no wheezing, no rubs GASTROINTESTINAL AND LIVER: Abdomen: Soft, generalized tenderness, non- distended, no hernias, no masses, no organomegaly, +ascites, no guarding, no rebound tenderness, normoactive bowel sounds. Rectal: Deferred. Result Diagram: 11/15/1825 11/15/1825 Results 24hrs Laboratory Tests Test 11/14/18 15:40 11/15/18 06:25 Ammonia 15 White Blood Count 26.4 H Red Blood Count 2.94 L Hemoglobin 10.4 L Hematocrit 29.1 L Mean Corpuscular Volume 99.0 Mean Corpuscular Hemoglobin 35.4 H Mean Corpuscular Hemoglobin Concent 35.7 Red Cell Distribution Width 18.5 H Platelet Count 105 L Mean Platelet Volume 10.9 H Immature Granulocytes % 6.800 H Neutrophils % Segmented Neutrophils % (Manual) 69 Lymphocytes % Lymphocytes % (Manual) 12 L Reactive Lymphocytes % (Manual) 3 H Monocytes % Monocytes % (Manual) 13 H Eosinophils % Eosinophils % (Manual) 1 Basophils % Myelocytes % (Manual) 2 H Nucleated Red Blood Cells % 0.5 H Immature Granulocytes # 1.790 H Neutrophils # Lymphocytes (Manual) 3.1 H Lymphocytes # Reactive Lymphocytes # 0.7 H Monocytes # Monocytes # (Manual) 3.4 H Eosinophils # Basophils # Myelocytes # 0.5 H Nucleated Red Blood Cells # White Cell Morphology Comment @See below Platelet Estimate DECREASED Polychromasia 2+ Poikilocytosis 3+ Anisocytosis 2+ Macrocytosis 2+ Red Cell Morphology Comment @See below Sodium Level 121 L Potassium Level 4.5 Chloride Level 86 L Carbon Dioxide Level 26 Anion Gap 9 Blood Urea Nitrogen 34 H Creatinine 0.80 Est Glomerular Filtrat Rate mL/min > 60 Glucose Level 93 Calcium Level 8.3 L Phosphorus Level 3.9 Magnesium Level 2.7 H Exam/Review of Systems Exam Vitals Vital Signs Date Temp Pulse Resp B/P (MAP) Pulse Ox O2 O2 Flow FiO2 Time Delivery Rate 11/15/18 98.6 61 20 118/56 93 Room Air 11:17 (76) Intake and Output 11/14/18 11/14/18 11/15/18 1515:00 23:00 07:00 IntakeIntake Total 700 ml 300 ml BalanceBalance 700 ml 300 ml Results Results 24hrs Laboratory Tests Test 11/14/18 15:40 11/15/18 06:25 Ammonia 15 White Blood Count 26.4 H Red Blood Count 2.94 L Hemoglobin 10.4 L Hematocrit 29.1 L Mean Corpuscular Volume 99.0 Mean Corpuscular Hemoglobin 35.4 H Mean Corpuscular Hemoglobin Concent 35.7 Red Cell Distribution Width 18.5 H Platelet Count 105 L Mean Platelet Volume 10.9 H Immature Granulocytes % 6.800 H Neutrophils % Segmented Neutrophils % (Manual) 69 Lymphocytes % Lymphocytes % (Manual) 12 L Reactive Lymphocytes % (Manual) 3 H Monocytes % Monocytes % (Manual) 13 H Eosinophils % Eosinophils % (Manual) 1 Basophils % Myelocytes % (Manual) 2 H Nucleated Red Blood Cells % 0.5 H Immature Granulocytes # 1.790 H Neutrophils # Lymphocytes (Manual) 3.1 H Lymphocytes # Reactive Lymphocytes # 0.7 H Monocytes # Monocytes # (Manual) 3.4 H Eosinophils # Basophils # Myelocytes # 0.5 H Nucleated Red Blood Cells # White Cell Morphology Comment @See below Platelet Estimate DECREASED Polychromasia 2+ Poikilocytosis 3+ Anisocytosis 2+ Macrocytosis 2+ Red Cell Morphology Comment @See below Sodium Level 121 L Potassium Level 4.5 Chloride Level 86 L Carbon Dioxide Level 26 Anion Gap 9 Blood Urea Nitrogen 34 H Creatinine 0.80 Est Glomerular Filtrat Rate mL/min > 60 Glucose Level 93 Calcium Level 8.3 L Phosphorus Level 3.9 Magnesium Level 2.7 H Medications Medication Current Medications IV Flush (NS 3 ml) 3 ml PER PROTOCOL IV ; Start 11/08/18 at 20:30 Docusate Sodium (Colace) 100 mg Q12H PRN PO .CONSTIPATION; Start 11/08/18 at 20:30 Bisacodyl (Dulcolax) 5 mg DAILY PRN PO .CONSTIPATION; Start 11/08/18 at 20:30 Ondansetron HCl (Zofran Inj) 4 mg Q4H PRN IV NAUSEA AND/OR VOMITING; Start 11/08/18 at 20:30 Methylprednisolone Sodium Succinate (Solu-Medrol) 40 mg DAILY IV Last administered on 11/15/18at 09:52; Admin Dose 40 MG; Start 11/08/18 at 20:30 Lisinopril (Zestril) 10 mg BID PO Last administered on 11/09/18 09:23; Admin Dose 10 MG; Start 11/08/18 at 21:00; Status Hold Thiamine HCl (Vitamin B1) 100 mg DAILY PO Last administered on 11/15/18at 09:51; Admin Dose 100 MG; Start 11/09/18 at 09:00 Rifaximin (Xifaxan) 550 mg BID PO Last administered on 11/15/18 09:51; Admin Dose 550 MG; Start 11/09/18 at 00:00 Multivitamins Therapeutic (Theragran) 1 tab DAILY PO Last administered on 11/15/18 09:51; Admin Dose 1 TAB; Start 11/09/18 at 09:00 Folic Acid (Folic Acid) 1 mg DAILY PO Last administered on 11/15/18 09:51; Admin Dose 1 MG; Start 11/09/18 at 09:00 Ibuprofen (Motrin) 400 mg Q6H PRN PO MILD PAIN(1-3) OR TEMP>38C Last administered on 11/15/18 11:09; Admin Dose 400 MG; Start 11/09/18 at 11:30 Spironolactone (Aldactone) 100 mg DAILY PO Last administered on 11/15/18 09:52; Admin Dose 100 MG; Start 11/10/18 at 09:00 Furosemide (Lasix) 40 mg DAILY PO Last administered on 11/15/18 09:53; Admin Dose 40 MG; Start 11/09/18 at 12:00 Pantoprazole (Protonix Tab) 40 mg DAILY@06 PO Last administered on 11/15/18 05:57; Admin Dose 40 MG; Start 11/10/18 at 06:00 Ceftriaxone Sodium 50 ml @ 100 mls/hr Q24H IVPB Last administered on 11/14/18 15:40; Admin Dose 100 MLS/HR; Start 11/11/18 at 14:30 Lactulose (Enulose) 20 gm Q8 PO Last administered on 11/15/18 05:57; Admin Dose 20 GM; Start 11/12/18 at 14:00 Sodium Chloride (Nacl) 2 gm TID PO ; Start 11/15/18 at 13:00 Sodium Chloride 500 ml @ 30 mls/hr [id number] IV ; Start 11/15/18 at 12:00; Status FRANKLYN TREJO Nov 15, 2018 12:49
[2018-11-15] MEDS: CEFTRIAXONE 1 GM/50 ML (PMX) 50 ML IVPB SCH (13:50)
[2018-11-16] VITALS (12 sets, daily range): BP systolic 108–121; BP diastolic 51–60; PULSE 71–85; RESP 20–23
[2018-11-16] MEDS: PANTOPRAZOLE (EC) 40 MG TAB PO SCH (05:35)
[2018-11-16] MEDS: LACTULOSE 30ML CUP PO SCH ×3 (05:35→21:54)
[2018-11-16] MEDS: SPIRONOLACTONE 50 MG TAB PO SCH (08:47)
[2018-11-16] MEDS: METHYLPREDNISOLONE 40 MG INJ IV SCH (08:47)
[2018-11-16] MEDS: MULTIVITAMINS THERAPEUTIC TAB PO SCH (08:48)
[2018-11-16] MEDS: RIFAXIMIN 550 MG TAB PO SCH ×2 (08:48→21:54)
[2018-11-16] MEDS: FUROSEMIDE 40 MG TAB PO SCH (08:48)
[2018-11-16] MEDS: FOLIC ACID 1 MG TAB PO SCH (08:48)
[2018-11-16] MEDS: THIAMINE 100 MG TAB PO SCH (08:48)
[2018-11-16] MEDS: SODIUM CHLORIDE 1 GM TAB PO SCH ×3 (08:54→21:54)
--- NOTE | 2018-11-16 11:19 | CONS ---
Assessment/Plan Assessment/Plan Assessment/Plan (Daily) 1. Hyponatremia (123 today) due to Hypervolemic Hyponatremia in setting of acute liver failure - Na chloride tablet 2 gram PO TID - s/p hypertonic 3% saline at 30 cc/ hr x 12 hr given yesterday 2. 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 Acute hepatic failure 4. Biliary colic vs cholecystitis 5. H/o alcohol abuse Plan: continue lasix 40mg po daily and spironolactone 100mg po daily - Lisinopril 10mg PO BID Solu medrol 40mg iV daily Abdominal US in ED showed The right kidney measures 10.8 cm. There is normal echogenicity of the right kidney. There is no solid right renal mass, hydronephrosis, or calculus. There is a benign 1 cm cyst in the upper to mid right kidney. will follow up Consultation Date/Type/Reason Admit Date/Time Nov 08, 2018 at 19:37 Initial Consult Date 11/09/18 Type of Consult NEPHROLOGY Requesting Provider: SCOTT DOLL NP Date/Time of Note DATE: 11/16/18 TIME: 11:19 Exam/Review of Systems Exam Vitals Vital Signs Date Temp Pulse Resp B/P (MAP) Pulse Ox O2 O2 Flow FiO2 Time Delivery Rate 11/16/18 77 08:01 11/16/18 97.8 23 112/55 96 Room Air 07:39 (74) Intake and Output 11/15/18 11/15/18 11/16/18 1515:00 23:00 07:00 IntakeIntake Total 50 ml 640 ml BalanceBalance 50 ml 640 ml Exam Exam Constitutional: alert, well developed, obese. + Jaundice Respiratory: diminished breath sounds (bilaterally at bases) Cardiovascular: nl pulses, other (s1s2) Gastrointestinal: soft, tender Musculoskeletal: muscle weakness Extremities: normal pulses 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: nl speech, other (alert/responsive) Skin: other (jaundiced) Results Result Diagram: 11/16/18 0810 11/16/18 0810 Results 24hrs Laboratory Tests Test 11/16/18 08:10 White Blood Count 25.4 H Red Blood Count 2.56 L Hemoglobin 9.1 L Hematocrit 26.0 L Mean Corpuscular Volume 101.6 H Mean Corpuscular Hemoglobin 35.5 H Mean Corpuscular Hemoglobin Concent 35.0 Red Cell Distribution Width 18.8 H Platelet Count 99 L Mean Platelet Volume 11.1 H Immature Granulocytes % 7.000 H Neutrophils % Segmented Neutrophils % (Manual) 76 Band Neutrophils % (Manual) 3 Lymphocytes % Lymphocytes % (Manual) 11 L Reactive Lymphocytes % (Manual) 2 H Monocytes % Monocytes % (Manual) 7 Eosinophils % Basophils % Myelocytes % (Manual) 1 H Nucleated Red Blood Cells % 0.5 H Immature Granulocytes # 1.780 H Neutrophils # Neutrophils # (Manual) 19.5 H Band Neutrophils # 0.7 H Lymphocytes (Manual) 2.7 Lymphocytes # Reactive Lymphocytes # 0.5 H Monocytes # Monocytes # (Manual) 1.7 H Eosinophils # Basophils # Myelocytes # 0.2 H Nucleated Red Blood Cells # Platelet Estimate DECREASED Polychromasia 1+ Poikilocytosis 3+ Anisocytosis 3+ Macrocytosis 3+ Sodium Level 126 L Potassium Level 4.6 Chloride Level 94 L Carbon Dioxide Level 22 Anion Gap 10 Blood Urea Nitrogen 42 H Creatinine 1.05 Est Glomerular Filtrat Rate mL/min > 60 Glucose Level 140 # Calcium Level 8.5 Medications Medication Current Medications IV Flush (NS 3 ml) 3 ml PER PROTOCOL IV ; Start 11/08/18 at 20:30 Docusate Sodium (Colace) 100 mg Q12H PRN PO .CONSTIPATION; Start 11/08/18 at 20:30 Bisacodyl (Dulcolax) 5 mg DAILY PRN PO .CONSTIPATION; Start 11/08/18 at 20:30 Ondansetron HCl (Zofran Inj) 4 mg Q4H PRN IV NAUSEA AND/OR VOMITING; Start 11/08/18 at 20:30 Methylprednisolone Sodium Succinate (Solu-Medrol) 40 mg DAILY IV Last administered on 11/16/18at 08:47; Admin Dose 40 MG; Start 11/08/18 at 20:30 Lisinopril (Zestril) 10 mg BID PO Last administered on 11/09/18 09:23; Admin Dose 10 MG; Start 11/08/18 at 21:00; Status Hold Thiamine HCl (Vitamin B1) 100 mg DAILY PO Last administered on 11/16/18 08:48; Admin Dose 100 MG; Start 11/09/18 at 09:00 Rifaximin (Xifaxan) 550 mg BID PO Last administered on 11/16/18 08:48; Admin Dose 550 MG; Start 11/09/18 at 00:00 Multivitamins Therapeutic (Theragran) 1 tab DAILY PO Last administered on 11/16/18 08:48; Admin Dose 1 TAB; Start 11/09/18 at 09:00 Folic Acid (Folic Acid) 1 mg DAILY PO Last administered on 11/16/18 08:48; Admin Dose 1 MG; Start 11/09/18 at 09:00 Ibuprofen (Motrin) 400 mg Q6H PRN PO MILD PAIN(1-3) OR TEMP>38C Last administered on 11/15/18 11:09; Admin Dose 400 MG; Start 11/09/18 at 11:30 Spironolactone (Aldactone) 100 mg DAILY PO Last administered on 11/16/18 08:47; Admin Dose 100 MG; Start 11/10/18 at 09:00 Furosemide (Lasix) 40 mg DAILY PO Last administered on 11/16/18 08:48; Admin Dose 40 MG; Start 11/09/18 at 12:00 Pantoprazole (Protonix Tab) 40 mg DAILY@06 PO Last administered on 11/16/18 05:35; Admin Dose 40 MG; Start 11/10/18 at 06:00 Ceftriaxone Sodium 50 ml @ 100 mls/hr Q24H IVPB Last administered on 11/15/18 13:50; Admin Dose 100 MLS/HR; Start 11/11/18 at 14:30 Lactulose (Enulose) 20 gm Q8 PO Last administered on 11/16/18 05:35; Admin Dose 20 GM; Start 11/12/18 at 14:00 Sodium Chloride (Nacl) 2 gm TID PO Last administered on 11/16/18 08:54; Admin Dose 2 GM; Start 11/15/18 at 13:00 BUCK CARO MD Nov 16, 2018 11:19
--- NOTE | 2018-11-16 11:57 | PN ---
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 Alcoholic hepatitis Hx of hepatic encephalopathy - normal ammonia levels Leukocytosis -due to steroids for alcoholic hepatitis Coagulopathy: hx of hematochezia, hematuria - resolved. Thrombocytopenia Transaminitis Pancreatitis -lipase improving UTI Obesity Hypertension No history of EGD or colonoscopy Hyponatremia- per nephrology Plan: Continue rifaximin Continue Lactulose, reduce if diarrhea (titrate to 3-4 bms daily) Continue methylprednisolone Monitor LFTs - slowly improving Outpatient EGD for variceal screening and colonoscopy for CRC screening and hematochezia Patient seen in collaboration with Dr. Nuñez Subjective: Forgetful today, no c/o pain, able to follow simple commands No c/o nausea or vomiting. PHYSICAL EXAMINATION: GENERAL: Well developed, well nourished, obese, awake & confused SKIN: No lesions, profound jaundice, ecchymosis on upper and lower extremities HEAD: Normocephalic, atraumatic, no tenderness. EYES: Pupils equal reactive to light and accommodation, no discharge. EARS/NOSE AND THROAT: Ears normal, nose normal NECK: Supple, no masses CHEST: Inspection within normal limits. CARDIOVASCULAR: Heart: Regular rate and rhythm RESPIRATORY: Lungs clear to auscultation. GASTROINTESTINAL AND LIVER: Abdomen: Soft, generalized tenderness, non- distended, +ascites, no guarding, no rebound tenderness, normoactive bowel sounds. Rectal: Deferred. Result Diagram: 11/16/18 0810 11/16/18 0810 Results 24hrs Laboratory Tests Test 11/16/18 08:10 White Blood Count 25.4 H Red Blood Count 2.56 L Hemoglobin 9.1 L Hematocrit 26.0 L Mean Corpuscular Volume 101.6 H Mean Corpuscular Hemoglobin 35.5 H Mean Corpuscular Hemoglobin Concent 35.0 Red Cell Distribution Width 18.8 H Platelet Count 99 L Mean Platelet Volume 11.1 H Immature Granulocytes % 7.000 H Neutrophils % Segmented Neutrophils % (Manual) 76 Band Neutrophils % (Manual) 3 Lymphocytes % Lymphocytes % (Manual) 11 L Reactive Lymphocytes % (Manual) 2 H Monocytes % Monocytes % (Manual) 7 Eosinophils % Basophils % Myelocytes % (Manual) 1 H Nucleated Red Blood Cells % 0.5 H Immature Granulocytes # 1.780 H Neutrophils # Neutrophils # (Manual) 19.5 H Band Neutrophils # 0.7 H Lymphocytes (Manual) 2.7 Lymphocytes # Reactive Lymphocytes # 0.5 H Monocytes # Monocytes # (Manual) 1.7 H Eosinophils # Basophils # Myelocytes # 0.2 H Nucleated Red Blood Cells # Platelet Estimate DECREASED Polychromasia 1+ Poikilocytosis 3+ Anisocytosis 3+ Macrocytosis 3+ Sodium Level 126 L Potassium Level 4.6 Chloride Level 94 L Carbon Dioxide Level 22 Anion Gap 10 Blood Urea Nitrogen 42 H Creatinine 1.05 Est Glomerular Filtrat Rate mL/min > 60 Glucose Level 140 # Calcium Level 8.5 Exam/Review of Systems Exam Vitals Vital Signs Date Temp Pulse Resp B/P (MAP) Pulse Ox O2 O2 Flow FiO2 Time Delivery Rate 11/16/18 77 08:01 11/16/18 97.8 23 112/55 96 Room Air 07:39 (74) Intake and Output 11/15/18 11/15/18 11/16/18 1515:00 23:00 07:00 IntakeIntake Total 50 ml 640 ml BalanceBalance 50 ml 640 ml Results Results 24hrs Laboratory Tests Test 11/16/18 08:10 White Blood Count 25.4 H Red Blood Count 2.56 L Hemoglobin 9.1 L Hematocrit 26.0 L Mean Corpuscular Volume 101.6 H Mean Corpuscular Hemoglobin 35.5 H Mean Corpuscular Hemoglobin Concent 35.0 Red Cell Distribution Width 18.8 H Platelet Count 99 L Mean Platelet Volume 11.1 H Immature Granulocytes % 7.000 H Neutrophils % Segmented Neutrophils % (Manual) 76 Band Neutrophils % (Manual) 3 Lymphocytes % Lymphocytes % (Manual) 11 L Reactive Lymphocytes % (Manual) 2 H Monocytes % Monocytes % (Manual) 7 Eosinophils % Basophils % Myelocytes % (Manual) 1 H Nucleated Red Blood Cells % 0.5 H Immature Granulocytes # 1.780 H Neutrophils # Neutrophils # (Manual) 19.5 H Band Neutrophils # 0.7 H Lymphocytes (Manual) 2.7 Lymphocytes # Reactive Lymphocytes # 0.5 H Monocytes # Monocytes # (Manual) 1.7 H Eosinophils # Basophils # Myelocytes # 0.2 H Nucleated Red Blood Cells # Platelet Estimate DECREASED Polychromasia 1+ Poikilocytosis 3+ Anisocytosis 3+ Macrocytosis 3+ Sodium Level 126 L Potassium Level 4.6 Chloride Level 94 L Carbon Dioxide Level 22 Anion Gap 10 Blood Urea Nitrogen 42 H Creatinine 1.05 Est Glomerular Filtrat Rate mL/min > 60 Glucose Level 140 # Calcium Level 8.5 Medications Medication Current Medications IV Flush (NS 3 ml) 3 ml PER PROTOCOL IV ; Start 11/08/18 at 20:30 Docusate Sodium (Colace) 100 mg Q12H PRN PO .CONSTIPATION; Start 11/08/18 at 20:30 Bisacodyl (Dulcolax) 5 mg DAILY PRN PO .CONSTIPATION; Start 11/08/18 at 20:30 Ondansetron HCl (Zofran Inj) 4 mg Q4H PRN IV NAUSEA AND/OR VOMITING; Start 11/08/18 at 20:30 Methylprednisolone Sodium Succinate (Solu-Medrol) 40 mg DAILY IV Last administered on 11/16/18 08:47; Admin Dose 40 MG; Start 11/08/18 at 20:30 Lisinopril (Zestril) 10 mg BID PO Last administered on 11/09/18 09:23; Admin Dose 10 MG; Start 11/08/18 at 21:00; Status Hold Thiamine HCl (Vitamin B1) 100 mg DAILY PO Last administered on 11/16/18 08:48; Admin Dose 100 MG; Start 11/09/18 at 09:00 Rifaximin (Xifaxan) 550 mg BID PO Last administered on 11/16/18 08:48; Admin Dose 550 MG; Start 11/09/18 at 00:00 Multivitamins Therapeutic (Theragran) 1 tab DAILY PO Last administered on 11/16/18 08:48; Admin Dose 1 TAB; Start 11/09/18 at 09:00 Folic Acid (Folic Acid) 1 mg DAILY PO Last administered on 11/16/18 08:48; Admin Dose 1 MG; Start 11/09/18 at 09:00 Ibuprofen (Motrin) 400 mg Q6H PRN PO MILD PAIN(1-3) OR TEMP>38C Last administered on 11/15/18 11:09; Admin Dose 400 MG; Start 11/09/18 at 11:30 Spironolactone (Aldactone) 100 mg DAILY PO Last administered on 11/16/18 08:47; Admin Dose 100 MG; Start 11/10/18 at 09:00 Furosemide (Lasix) 40 mg DAILY PO Last administered on 11/16/18 08:48; Admin Dose 40 MG; Start 11/09/18 at 12:00 Pantoprazole (Protonix Tab) 40 mg DAILY@06 PO Last administered on 11/16/18 05:35; Admin Dose 40 MG; Start 11/10/18 at 06:00 Ceftriaxone Sodium 50 ml @ 100 mls/hr Q24H IVPB Last administered on 11/15/18 13:50; Admin Dose 100 MLS/HR; Start 11/11/18 at 14:30 Lactulose (Enulose) 20 gm Q8 PO Last administered on 11/16/18 05:35; Admin Dose 20 GM; Start 11/12/18 at 14:00 Sodium Chloride (Nacl) 2 gm TID PO Last administered on 11/16/18 08:54; Admin Dose 2 GM; Start 11/15/18 at 13:00 LUDWIG LOPEZ Nov 16, 2018 11:52
--- NOTE | 2018-11-16 13:05 | PN ---
Date/Time of Note Date/Time of Note DATE: 11/16/18 TIME: 13:03 Assessment/Plan VTE Prophylaxis Risk score (from [facility])>0 risk: 2 SCD applied (from [facility]): Yes Pharmacological prophylaxis: other Pharm contraindication: liver dx Lines/Catheters IV C[facility] Type (from [facility] Peripheral IV Urinary Cath still in place: No Assessment/Plan Assessment/Plan 1. Hyponatremia, due to alcoholism/liver disease, free water restriction, oral Na, improving 2. Alcoholic liver disease with Liver Cirrhosis with portal hypertension/splenomegaly/ coagulopathy/ascites, on steroid and lactulose/rifaximin, Lasix, Aldactone follow up with GI 3. Alcohol abuse, Counseled on cessation. 4. Acute pancreatitis, alcohol related, stable 5. UTI, on rocephin 6. Normocytic anemia, follow up with H/H 7. Thrombocytopenia, alcohol related, follow up with PLT 8. Morbid Obesity, life style changes advised 9.Hypertension, controlled Result Diagram: 11/16/18 0810 11/16/18 0810 Results 24hrs Laboratory Tests Test 11/16/18 08:10 White Blood Count 25.4 H Red Blood Count 2.56 L Hemoglobin 9.1 L Hematocrit 26.0 L Mean Corpuscular Volume 101.6 H Mean Corpuscular Hemoglobin 35.5 H Mean Corpuscular Hemoglobin Concent 35.0 Red Cell Distribution Width 18.8 H Platelet Count 99 L Mean Platelet Volume 11.1 H Immature Granulocytes % 7.000 H Neutrophils % Segmented Neutrophils % (Manual) 76 Band Neutrophils % (Manual) 3 Lymphocytes % Lymphocytes % (Manual) 11 L Reactive Lymphocytes % (Manual) 2 H Monocytes % Monocytes % (Manual) 7 Eosinophils % Basophils % Myelocytes % (Manual) 1 H Nucleated Red Blood Cells % 0.5 H Immature Granulocytes # 1.780 H Neutrophils # Neutrophils # (Manual) 19.5 H Band Neutrophils # 0.7 H Lymphocytes (Manual) 2.7 Lymphocytes # Reactive Lymphocytes # 0.5 H Monocytes # Monocytes # (Manual) 1.7 H Eosinophils # Basophils # Myelocytes # 0.2 H Nucleated Red Blood Cells # Platelet Estimate DECREASED Polychromasia 1+ Poikilocytosis 3+ Anisocytosis 3+ Macrocytosis 3+ Sodium Level 126 L Potassium Level 4.6 Chloride Level 94 L Carbon Dioxide Level 22 Anion Gap 10 Blood Urea Nitrogen 42 H Creatinine 1.05 Est Glomerular Filtrat Rate mL/min > 60 Glucose Level 140 # Calcium Level 8.5 Subjective 24 Hr Interval Summary Free Text/Dictation sleeps more since yesterday per family Exam/Review of Systems Exam Vitals Vital Signs Date Temp Pulse Resp B/P (MAP) Pulse Ox O2 O2 Flow FiO2 Time Delivery Rate 11/16/18 98.0 78 22 110/54 96 Room Air 12:00 (72) Intake and Output 11/15/18 11/15/18 11/16/18 1515:00 23:00 07:00 IntakeIntake Total 50 ml 640 ml BalanceBalance 50 ml 640 ml Constitutional: alert, oriented Head: normocephalic, atraumatic Eyes: nl conjunctiva, EOMI, nl lids, PERRL ENMT: nl external ears & nose, nl lips & teeth, nl nasal mucosa & septum Neck: supple, non-tender Respiratory: clear to auscultation, normal air movement; No congested cough, No crackles/rales, No diminished breath sounds, No intercostal retraction, No labored breathing, No respirations, No tactile fremitus, No wheezing, No other Cardiovascular: regular rate and rhythm, nl pulses; No bruits, No diastolic murmur, No edema, No gallop, No irregular rhythm, No jugular venous distention (JVD), No murmurs/extra sounds, No rub, No systolic murmur, No S3, No S4, No other Gastrointestinal: soft, nl liver, spleen, non-tender Musculoskeletal: nl extremities to inspection Extremities: normal pulses; No calf tenderness, No cyanosis, No clubbing, No edema, No pitting pedal edema, No palpable cord, No tenderness, No other 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: AEROLOGIST II-XII intact, nl mental status, nl speech, nl strength Results Results 24hrs Laboratory Tests Test 11/16/18 08:10 White Blood Count 25.4 H Red Blood Count 2.56 L Hemoglobin 9.1 L Hematocrit 26.0 L Mean Corpuscular Volume 101.6 H Mean Corpuscular Hemoglobin 35.5 H Mean Corpuscular Hemoglobin Concent 35.0 Red Cell Distribution Width 18.8 H Platelet Count 99 L Mean Platelet Volume 11.1 H Immature Granulocytes % 7.000 H Neutrophils % Segmented Neutrophils % (Manual) 76 Band Neutrophils % (Manual) 3 Lymphocytes % Lymphocytes % (Manual) 11 L Reactive Lymphocytes % (Manual) 2 H Monocytes % Monocytes % (Manual) 7 Eosinophils % Basophils % Myelocytes % (Manual) 1 H Nucleated Red Blood Cells % 0.5 H Immature Granulocytes # 1.780 H Neutrophils # Neutrophils # (Manual) 19.5 H Band Neutrophils # 0.7 H Lymphocytes (Manual) 2.7 Lymphocytes # Reactive Lymphocytes # 0.5 H Monocytes # Monocytes # (Manual) 1.7 H Eosinophils # Basophils # Myelocytes # 0.2 H Nucleated Red Blood Cells # Platelet Estimate DECREASED Polychromasia 1+ Poikilocytosis 3+ Anisocytosis 3+ Macrocytosis 3+ Sodium Level 126 L Potassium Level 4.6 Chloride Level 94 L Carbon Dioxide Level 22 Anion Gap 10 Blood Urea Nitrogen 42 H Creatinine 1.05 Est Glomerular Filtrat Rate mL/min > 60 Glucose Level 140 # Calcium Level 8.5 Medications Medication Current Medications IV Flush (NS 3 ml) 3 ml PER PROTOCOL IV ; Start 11/08/18 at 20:30 Docusate Sodium (Colace) 100 mg Q12H PRN PO .CONSTIPATION; Start 11/08/18 at 20:30 Bisacodyl (Dulcolax) 5 mg DAILY PRN PO .CONSTIPATION; Start 11/08/18 at 20:30 Ondansetron HCl (Zofran Inj) 4 mg Q4H PRN IV NAUSEA AND/OR VOMITING; Start 11/08/18 at 20:30 Methylprednisolone Sodium Succinate (Solu-Medrol) 40 mg DAILY IV Last administered on 11/16/18 08:47; Admin Dose 40 MG; Start 11/08/18 at 20:30 Lisinopril (Zestril) 10 mg BID PO Last administered on 11/09/18 09:23; Admin Dose 10 MG; Start 11/08/18 at 21:00; Status Hold Thiamine HCl (Vitamin B1) 100 mg DAILY PO Last administered on 11/16/18 08:48; Admin Dose 100 MG; Start 11/09/18 at 09:00 Rifaximin (Xifaxan) 550 mg BID PO Last administered on 11/16/18 08:48; Admin Dose 550 MG; Start 11/09/18 at 00:00 Multivitamins Therapeutic (Theragran) 1 tab DAILY PO Last administered on 11/16/18 08:48; Admin Dose 1 TAB; Start 11/09/18 at 09:00 Folic Acid (Folic Acid) 1 mg DAILY PO Last administered on 11/16/18 08:48; Admin Dose 1 MG; Start 11/09/18 at 09:00 Ibuprofen (Motrin) 400 mg Q6H PRN PO MILD PAIN(1-3) OR TEMP>38C Last administered on 11/15/18 11:09; Admin Dose 400 MG; Start 11/09/18 at 11:30 Spironolactone (Aldactone) 100 mg DAILY PO Last administered on 11/16/18 08:47; Admin Dose 100 MG; Start 11/10/18 at 09:00 Furosemide (Lasix) 40 mg DAILY PO Last administered on 11/16/18 08:48; Admin Dose 40 MG; Start 11/09/18 at 12:00 Pantoprazole (Protonix Tab) 40 mg DAILY@06 PO Last administered on 11/16/18 05:35; Admin Dose 40 MG; Start 11/10/18 at 06:00 Ceftriaxone Sodium 50 ml @ 100 mls/hr Q24H IVPB Last administered on 11/15/18 13:50; Admin Dose 100 MLS/HR; Start 11/11/18 at 14:30 Lactulose (Enulose) 20 gm Q8 PO Last administered on 11/16/18 05:35; Admin Dose 20 GM; Start 11/12/18 at 14:00 Sodium Chloride (Nacl) 2 gm TID PO Last administered on 11/16/18 08:54; Admin Dose 2 GM; Start 11/15/18 at 13:00 MACARENA MOONEY MD Nov 16, 2018 13:05
[2018-11-16] MEDS: CEFTRIAXONE 1 GM/50 ML (PMX) 50 ML IVPB SCH (15:55)
[2018-11-16] MEDS: IBUPROFEN 400 MG TAB PO PRN (16:00)
[2018-11-17] VITALS (10 sets, daily range): BP systolic 95–127; BP diastolic 53–58; PULSE 61–79; RESP 18–20
[2018-11-17] MEDS: LACTULOSE 30ML CUP PO SCH ×3 (05:31→23:17)
[2018-11-17] MEDS: PANTOPRAZOLE (EC) 40 MG TAB PO SCH (05:31)
[2018-11-17] MEDS: METHYLPREDNISOLONE 40 MG INJ IV SCH (08:54)
[2018-11-17] MEDS: SODIUM CHLORIDE 1 GM TAB PO SCH ×3 (08:54→21:05)
[2018-11-17] MEDS: THIAMINE 100 MG TAB PO SCH (08:54)
[2018-11-17] MEDS: RIFAXIMIN 550 MG TAB PO SCH ×2 (08:54→21:05)
[2018-11-17] MEDS: MULTIVITAMINS THERAPEUTIC TAB PO SCH (08:54)
[2018-11-17] MEDS: SPIRONOLACTONE 50 MG TAB PO SCH (08:55)
[2018-11-17] MEDS: FUROSEMIDE 40 MG TAB PO SCH (08:55)
[2018-11-17] MEDS: FOLIC ACID 1 MG TAB PO SCH (08:55)
[2018-11-17] MEDS ORDERED: NA POLYST SULFON 15 GM/60 ML BTL PO STA (11:58)
--- NOTE | 2018-11-17 11:58 | CONS ---
Assessment/Plan Assessment/Plan Assessment/Plan (Daily) 1. Hyponatremia (123 today) due to Hypervolemic Hyponatremia in setting of acute liver failure - Na chloride tablet 2 gram PO TID - s/p hypertonic 3% saline at 30 cc/ hr x 12 hr given yesterday 2. 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 Acute hepatic failure 4. Biliary colic vs cholecystitis 5. H/o alcohol abuse 6. acute kidney injury due to hepatorenal syndrome Plan: Cr bumped to 1.56- will stop Lisinorpil, K 5.2- will give Kayexalate 15 gram PO x 1 dose , d/c aldactone also , d/c PO lasix also Solu medrol 40mg iV daily Abdominal US in ED showed The right kidney measures 10.8 cm. There is normal echogenicity of the right kidney. There is no solid right renal mass, hydronephrosis, or calculus. There is a benign 1 cm cyst in the upper to mid right kidney. will follow up Consultation Date/Type/Reason Admit Date/Time Nov 08, 2018 at 19:37 Initial Consult Date 11/09/18 Type of Consult NEPHROLOGY Requesting Provider: SCOTT DOLL NP Date/Time of Note DATE: 11/17/18 TIME: 11:58 Exam/Review of Systems Exam Vitals Vital Signs Date Temp Pulse Resp B/P (MAP) Pulse Ox O2 O2 Flow FiO2 Time Delivery Rate 11/17/18 97.2 67 20 95/54 (68) 94 Room Air 11:03 Intake and Output 11/16/18 11/16/18 11/17/18 1515:00 23:00 07:00 IntakeIntake Total 600 ml 890 ml 250 ml BalanceBalance 600 ml 890 ml 250 ml Exam Constitutional: alert, well developed, obese. + Jaundice Respiratory: diminished breath sounds (bilaterally at bases) Cardiovascular: nl pulses, other (s1s2) Gastrointestinal: soft, tender Musculoskeletal: muscle weakness Extremities: normal pulses 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: nl speech, other (alert/responsive) Skin: other (jaundiced) Results Result Diagram: 11/17/18 0635 11/17/18 0635 Results 24hrs Laboratory Tests Test 11/17/18 06:35 White Blood Count 30.2 H Red Blood Count 2.67 L Hemoglobin 9.6 L Hematocrit 27.0 L Mean Corpuscular Volume 101.1 H Mean Corpuscular Hemoglobin 36.0 H Mean Corpuscular Hemoglobin Concent 35.6 Red Cell Distribution Width 19.4 H Platelet Count 110 L Mean Platelet Volume 11.0 H Immature Granulocytes % 10.200 H Neutrophils % Segmented Neutrophils % (Manual) 69 Band Neutrophils % (Manual) 5 H Lymphocytes % Lymphocytes % (Manual) 11 L Monocytes % Monocytes % (Manual) 12 H Eosinophils % Eosinophils % (Manual) 1 Basophils % Metamyelocytes % (manual) 2 H Nucleated Red Blood Cells % 1.0 H Immature Granulocytes # 3.070 H Neutrophils # Neutrophils # (Manual) 21.3 H Band Neutrophils # 1.5 H Lymphocytes (Manual) 3.3 H Lymphocytes # Monocytes # Monocytes # (Manual) 3.6 H Eosinophils # Basophils # Metamyelocytes # 0.6 H Nucleated Red Blood Cells # Pathologist Review (Hematology) YES Platelet Estimate DECREASED Polychromasia 1+ Hypochromasia 1+ Poikilocytosis 1+ Anisocytosis 1+ Microcytosis 1+ Macrocytosis 2+ Sodium Level 126 L Potassium Level 5.2 H Chloride Level 94 L Carbon Dioxide Level 21 Anion Gap 11 Blood Urea Nitrogen 57 H Creatinine 1.56 H Est Glomerular Filtrat Rate mL/min 47 L Glucose Level 74 # Calcium Level 9.0 Total Bilirubin 21.9 H Direct Bilirubin 18.60 *H Indirect Bilirubin 3.3 H Aspartate Amino Transf (AST/SGOT) 621 H Alanine Aminotransferase (ALT/SGPT) 548 H Alkaline Phosphatase 296 H Ammonia 11 Total Protein 6.0 L Albumin 2.3 L Globulin 3.70 H Albumin/Globulin Ratio 0.62 Amylase Level 253 H Lipase 932 H Medications Medication Current Medications IV Flush (NS 3 ml) 3 ml PER PROTOCOL IV ; Start 11/08/18 at 20:30 Docusate Sodium (Colace) 100 mg Q12H PRN PO .CONSTIPATION; Start 11/08/18 at 20:30 Bisacodyl (Dulcolax) 5 mg DAILY PRN PO .CONSTIPATION; Start 11/08/18 at 20:30 Ondansetron HCl (Zofran Inj) 4 mg Q4H PRN IV NAUSEA AND/OR VOMITING; Start 11/08/18 at 20:30 Methylprednisolone Sodium Succinate (Solu-Medrol) 40 mg DAILY IV Last administered on 11/17/18at 08:54; Admin Dose 40 MG; Start 11/08/18 at 20:30 Lisinopril (Zestril) 10 mg BID PO Last administered on 11/09/18 09:23; Admin Dose 10 MG; Start 11/08/18 at 21:00; Status Hold Thiamine HCl (Vitamin B1) 100 mg DAILY PO Last administered on 11/17/18 08:54; Admin Dose 100 MG; Start 11/09/18 at 09:00 Rifaximin (Xifaxan) 550 mg BID PO Last administered on 11/17/18 08:54; Admin Dose 550 MG; Start 11/09/18 at 00:00 Multivitamins Therapeutic (Theragran) 1 tab DAILY PO Last administered on 11/17/18 08:54; Admin Dose 1 TAB; Start 11/09/18 at 09:00 Folic Acid (Folic Acid) 1 mg DAILY PO Last administered on 11/17/18 08:55; Admin Dose 1 MG; Start 11/09/18 at 09:00 Ibuprofen (Motrin) 400 mg Q6H PRN PO MILD PAIN(1-3) OR TEMP>38C Last administered on 11/16/18 16:00; Admin Dose 400 MG; Start 11/09/18 at 11:30 Spironolactone (Aldactone) 100 mg DAILY PO Last administered on 11/17/18 08:55; Admin Dose 100 MG; Start 11/10/18 at 09:00 Furosemide (Lasix) 40 mg DAILY PO Last administered on 11/17/18 08:55; Admin Dose 40 MG; Start 11/09/18 at 12:00 Pantoprazole (Protonix Tab) 40 mg DAILY@06 PO Last administered on 11/17/18 05:31; Admin Dose 40 MG; Start 11/10/18 at 06:00 Ceftriaxone Sodium 50 ml @ 100 mls/hr Q24H IVPB Last administered on 11/16/18 15:55; Admin Dose 100 MLS/HR; Start 11/11/18 at 14:30 Lactulose (Enulose) 20 gm Q8 PO Last administered on 11/17/18 05:31; Admin Dose 20 GM; Start 11/12/18 at 14:00 Sodium Chloride (Nacl) 2 gm TID PO Last administered on 4/24/19at 08:54; Admin Dose 2 GM; Start 11/15/18 at 13:00 BUCK CARO MD Nov 17, 2018 11:58
--- NOTE | 2018-11-17 12:24 | PN ---
Date/Time of Note Date/Time of Note DATE: 11/17/18 TIME: 12:23 Assessment/Plan VTE Prophylaxis Risk score (from Ns)>0 risk: 3 SCD applied (from Ns): Yes Pharmacological prophylaxis: other (scds) Lines/Catheters IV C[facility]ter Type (from [facility]): Peripheral IV Urinary Cath still in place: No Assessment/Plan Hospital Course Assessment/Plan Decompensated liver cirrhosis from alcoholism. Alcoholic hepatitis Hx of hepatic encephalopathy - normal ammonia levels Leukocytosis -due to steroids for alcoholic hepatitis Coagulopathy: hx of hematochezia, hematuria - resolved. Thrombocytopenia Transaminitis Pancreatitis UTI Obesity Hypertension No history of EGD or colonoscopy Hyponatremia- per nephrology Hepatitis C AB positive- with negative RNA Plan: Continue rifaximin Continue Lactulose, reduce if diarrhea Patient not responding to methylprednisolone therapy- will d/c Monitor LFTs Outpatient EGD for variceal screening and colonoscopy for CRC screening and hematochezia Patient seen in collaboration with Dr. Nuñez Subjective: Lethargic, able to answer questions asked, but more confused with longer conversations No c/o nausea or vomiting. Pt does c/o headache. PHYSICAL EXAMINATION: GENERAL: Well developed, well nourished, obese, awake & confused SKIN: No lesions, profound jaundice, ecchymosis on upper and lower extremities HEAD: Normocephalic, atraumatic, no tenderness. EYES: Pupils equal reactive to light and accommodation, no discharge. EARS/NOSE AND THROAT: Ears normal, nose normal NECK: Supple, no masses CHEST: Inspection within normal limits. CARDIOVASCULAR: Heart: Regular rate and rhythm RESPIRATORY: Lungs clear to auscultation. GASTROINTESTINAL AND LIVER: Abdomen: Soft, generalized tenderness, non- distended, +ascites, no guarding, no rebound tenderness, normoactive bowel sounds. Rectal: Deferred. Result Diagram: 11/17/18 0635 11/17/18 0635 Results 24hrs Laboratory Tests Test 11/17/18 06:35 White Blood Count 30.2 H Red Blood Count 2.67 L Hemoglobin 9.6 L Hematocrit 27.0 L Mean Corpuscular Volume 101.1 H Mean Corpuscular Hemoglobin 36.0 H Mean Corpuscular Hemoglobin Concent 35.6 Red Cell Distribution Width 19.4 H Platelet Count 110 L Mean Platelet Volume 11.0 H Immature Granulocytes % 10.200 H Neutrophils % Segmented Neutrophils % (Manual) 69 Band Neutrophils % (Manual) 5 H Lymphocytes % Lymphocytes % (Manual) 11 L Monocytes % Monocytes % (Manual) 12 H Eosinophils % Eosinophils % (Manual) 1 Basophils % Metamyelocytes % (manual) 2 H Nucleated Red Blood Cells % 1.0 H Immature Granulocytes # 3.070 H Neutrophils # Neutrophils # (Manual) 21.3 H Band Neutrophils # 1.5 H Lymphocytes (Manual) 3.3 H Lymphocytes # Monocytes # Monocytes # (Manual) 3.6 H Eosinophils # Basophils # Metamyelocytes # 0.6 H Nucleated Red Blood Cells # Pathologist Review (Hematology) YES Platelet Estimate DECREASED Polychromasia 1+ Hypochromasia 1+ Poikilocytosis 1+ Anisocytosis 1+ Microcytosis 1+ Macrocytosis 2+ Sodium Level 126 L Potassium Level 5.2 H Chloride Level 94 L Carbon Dioxide Level 21 Anion Gap 11 Blood Urea Nitrogen 57 H Creatinine 1.56 H Est Glomerular Filtrat Rate mL/min 47 L Glucose Level 74 # Calcium Level 9.0 Total Bilirubin 21.9 H Direct Bilirubin 18.60 *H Indirect Bilirubin 3.3 H Aspartate Amino Transf (AST/SGOT) 621 H Alanine Aminotransferase (ALT/SGPT) 548 H Alkaline Phosphatase 296 H Ammonia 11 Total Protein 6.0 L Albumin 2.3 L Globulin 3.70 H Albumin/Globulin Ratio 0.62 Amylase Level 253 H Lipase 932 H Exam/Review of Systems Exam Vitals Vital Signs Date Temp Pulse Resp B/P (MAP) Pulse Ox O2 O2 Flow FiO2 Time Delivery Rate 11/17/18 97.2 67 20 95/54 (68) 94 Room Air 11:03 Intake and Output 11/16/18 11/16/18 11/17/18 1515:00 23:00 07:00 IntakeIntake Total 600 ml 890 ml 250 ml BalanceBalance 600 ml 890 ml 250 ml Results Results 24hrs Laboratory Tests Test 11/17/18 06:35 White Blood Count 30.2 H Red Blood Count 2.67 L Hemoglobin 9.6 L Hematocrit 27.0 L Mean Corpuscular Volume 101.1 H Mean Corpuscular Hemoglobin 36.0 H Mean Corpuscular Hemoglobin Concent 35.6 Red Cell Distribution Width 19.4 H Platelet Count 110 L Mean Platelet Volume 11.0 H Immature Granulocytes % 10.200 H Neutrophils % Segmented Neutrophils % (Manual) 69 Band Neutrophils % (Manual) 5 H Lymphocytes % Lymphocytes % (Manual) 11 L Monocytes % Monocytes % (Manual) 12 H Eosinophils % Eosinophils % (Manual) 1 Basophils % Metamyelocytes % (manual) 2 H Nucleated Red Blood Cells % 1.0 H Immature Granulocytes # 3.070 H Neutrophils # Neutrophils # (Manual) 21.3 H Band Neutrophils # 1.5 H Lymphocytes (Manual) 3.3 H Lymphocytes # Monocytes # Monocytes # (Manual) 3.6 H Eosinophils # Basophils # Metamyelocytes # 0.6 H Nucleated Red Blood Cells # Pathologist Review (Hematology) YES Platelet Estimate DECREASED Polychromasia 1+ Hypochromasia 1+ Poikilocytosis 1+ Anisocytosis 1+ Microcytosis 1+ Macrocytosis 2+ Sodium Level 126 L Potassium Level 5.2 H Chloride Level 94 L Carbon Dioxide Level 21 Anion Gap 11 Blood Urea Nitrogen 57 H Creatinine 1.56 H Est Glomerular Filtrat Rate mL/min 47 L Glucose Level 74 # Calcium Level 9.0 Total Bilirubin 21.9 H Direct Bilirubin 18.60 *H Indirect Bilirubin 3.3 H Aspartate Amino Transf (AST/SGOT) 621 H Alanine Aminotransferase (ALT/SGPT) 548 H Alkaline Phosphatase 296 H Ammonia 11 Total Protein 6.0 L Albumin 2.3 L Globulin 3.70 H Albumin/Globulin Ratio 0.62 Amylase Level 253 H Lipase 932 H Medications Medication Current Medications IV Flush (NS 3 ml) 3 ml PER PROTOCOL IV ; Start 11/08/18 at 20:30 Docusate Sodium (Colace) 100 mg Q12H PRN PO .CONSTIPATION; Start 11/08/18 at 20:30 Bisacodyl (Dulcolax) 5 mg DAILY PRN PO .CONSTIPATION; Start 11/08/18 at 20:30 Ondansetron HCl (Zofran Inj) 4 mg Q4H PRN IV NAUSEA AND/OR VOMITING; Start 11/08/18 at 20:30 Methylprednisolone Sodium Succinate (Solu-Medrol) 40 mg DAILY IV Last administered on 11/17/18at 08:54; Admin Dose 40 MG; Start 11/08/18 at 20:30 Lisinopril (Zestril) 10 mg BID PO Last administered on 11/09/18at 09:23; Admin Dose 10 MG; Start 11/08/18 at 21:00; Status Hold Thiamine HCl (Vitamin B1) 100 mg DAILY PO Last administered on 11/17/18 08:54; Admin Dose 100 MG; Start 11/09/18 at 09:00 Rifaximin (Xifaxan) 550 mg BID PO Last administered on 11/17/18 08:54; Admin Dose 550 MG; Start 11/09/18 at 00:00 Multivitamins Therapeutic (Theragran) 1 tab DAILY PO Last administered on 11/17/18 08:54; Admin Dose 1 TAB; Start 11/09/18 at 09:00 Folic Acid (Folic Acid) 1 mg DAILY PO Last administered on 11/17/18 08:55; Admin Dose 1 MG; Start 11/09/18 at 09:00 Ibuprofen (Motrin) 400 mg Q6H PRN PO MILD PAIN(1-3) OR TEMP>38C Last administered on 11/16/18 16:00; Admin Dose 400 MG; Start 11/09/18 at 11:30 Furosemide (Lasix) 40 mg DAILY PO Last administered on 11/17/18 08:55; Admin Dose 40 MG; Start 11/09/18 at 12:00 Pantoprazole (Protonix Tab) 40 mg DAILY@06 PO Last administered on 11/17/18 05:31; Admin Dose 40 MG; Start 11/10/18 at 06:00 Ceftriaxone Sodium 50 ml @ 100 mls/hr Q24H IVPB Last administered on 11/16/18 15:55; Admin Dose 100 MLS/HR; Start 11/11/18 at 14:30 Lactulose (Enulose) 20 gm Q8 PO Last administered on 11/17/18 05:31; Admin Dose 20 GM; Start 11/12/18 at 14:00 Sodium Chloride (Nacl) 2 gm TID PO Last administered on 11/17/18 12:18; Admin Dose 2 GM; Start 11/15/18 at 13:00 Spironolactone (Aldactone) 50 mg DAILY PO ; Start 11/18/18 at 09:00 LUDWIG LOPEZ Nov 17, 2018 12:24
[2018-11-17] MEDS: IBUPROFEN 400 MG TAB PO PRN (12:34)
--- NOTE | 2018-11-17 13:52 | PN ---
Date/Time of Note Date/Time of Note DATE: 11/17/18 TIME: 13:46 Assessment/Plan VTE Prophylaxis Risk score (from [facility])>0 risk: 3 SCD applied (from [facility]): Yes Pharmacological prophylaxis: other Pharm contraindication: liver dx Lines/Catheters IV [facility] Type (from [facility]): Peripheral IV Urinary Cath still in place: No Assessment/Plan Assessment/Plan 1. Hepatic encephalopathy, on lactulose/rifaximin 2. Hepato nephrotic syndrome, follow up with Dr. Baumann 3. Alcoholic liver disease with Liver Cirrhosis with portal hypertension/splenomegaly/ coagulopathy/ascites, follow up with GI 4. Acute pancreatitis, alcohol related, stable 5. UTI, on rocephin 6. Normocytic anemia, follow up with H/H 7. Thrombocytopenia, alcohol related, follow up with [facility] 8. Morbid Obesity, life style changes advised 9.Hypertension, controlled 10. Hyponatremia, stable 11. Poor prognosis. Conditions and treatment are discussed with GI and family(, daughter). I informed the family the poor prognosis and code status. Family will make decision about code status Result Diagram: 11/17/18 0635 11/17/18 0635 Results 24hrs Laboratory Tests Test 11/17/18 06:35 White Blood Count 30.2 H Red Blood Count 2.67 L Hemoglobin 9.6 L Hematocrit 27.0 L Mean Corpuscular Volume 101.1 H Mean Corpuscular Hemoglobin 36.0 H Mean Corpuscular Hemoglobin Concent 35.6 Red Cell Distribution Width 19.4 H Platelet Count 110 L Mean Platelet Volume 11.0 H Immature Granulocytes % 10.200 H Neutrophils % Segmented Neutrophils % (Manual) 69 Band Neutrophils % (Manual) 5 H Lymphocytes % Lymphocytes % (Manual) 11 L Monocytes % Monocytes % (Manual) 12 H Eosinophils % Eosinophils % (Manual) 1 Basophils % Metamyelocytes % (manual) 2 H Nucleated Red Blood Cells % 1.0 H Immature Granulocytes # 3.070 H Neutrophils # Neutrophils # (Manual) 21.3 H Band Neutrophils # 1.5 H Lymphocytes (Manual) 3.3 H Lymphocytes # Monocytes # Monocytes # (Manual) 3.6 H Eosinophils # Basophils # Metamyelocytes # 0.6 H Nucleated Red Blood Cells # Pathologist Review (Hematology) YES Platelet Estimate DECREASED Polychromasia 1+ Hypochromasia 1+ Poikilocytosis 1+ Anisocytosis 1+ Microcytosis 1+ Macrocytosis 2+ Path Consult Signing Pathologist PAZ OLIVERA MD Sodium Level 126 L Potassium Level 5.2 H Chloride Level 94 L Carbon Dioxide Level 21 Anion Gap 11 Blood Urea Nitrogen 57 H Creatinine 1.56 H Est Glomerular Filtrat Rate mL/min 47 L Glucose Level 74 # Calcium Level 9.0 Total Bilirubin 21.9 H Direct Bilirubin 18.60 *H Indirect Bilirubin 3.3 H Aspartate Amino Transf (AST/SGOT) 621 H Alanine Aminotransferase (ALT/SGPT) 548 H Alkaline Phosphatase 296 H Ammonia 11 Total Protein 6.0 L Albumin 2.3 L Globulin 3.70 H Albumin/Globulin Ratio 0.62 Amylase Level 253 H Lipase 932 H Subjective 24 Hr Interval Summary Free Text/Dictation lethargic, confused Exam/Review of Systems Exam Vitals Vital Signs Date Temp Pulse Resp B/P (MAP) Pulse Ox O2 O2 Flow FiO2 Time Delivery Rate 11/17/18 62 12:22 11/17/18 97.2 20 95/54 (68) 94 Room Air 11:03 Intake and Output 11/16/18 11/16/18 11/17/18 1515:00 23:00 07:00 IntakeIntake Total 600 ml 890 ml 250 ml BalanceBalance 600 ml 890 ml 250 ml Constitutional: well developed, other (lethargic) Head: normocephalic, atraumatic Eyes: nl conjunctiva, EOMI, nl lids, PERRL, other (jaundice) ENMT: nl external ears & nose Neck: supple, non-tender Respiratory: clear to auscultation, normal air movement; No congested cough, No crackles/rales, No diminished breath sounds, No intercostal retraction, No labored breathing, No respirations, No tactile fremitus, No wheezing, No other Cardiovascular: regular rate and rhythm, nl pulses; No bruits, No diastolic murmur, No edema, No gallop, No irregular rhythm, No jugular venous distention (JVD), No murmurs/extra sounds, No rub, No systolic murmur, No S3, No S4, No other Gastrointestinal: soft, non-tender Musculoskeletal: nl extremities to inspection Extremities: normal pulses; No calf tenderness, No cyanosis, No clubbing, No edema, No pitting pedal edema, No palpable cord, No tenderness, No other 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: 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 intact, confused Results Results 24hrs Laboratory Tests Test 11/17/18 06:35 White Blood Count 30.2 H Red Blood Count 2.67 L Hemoglobin 9.6 L Hematocrit 27.0 L Mean Corpuscular Volume 101.1 H Mean Corpuscular Hemoglobin 36.0 H Mean Corpuscular Hemoglobin Concent 35.6 Red Cell Distribution Width 19.4 H Platelet Count 110 L Mean Platelet Volume 11.0 H Immature Granulocytes % 10.200 H Neutrophils % Segmented Neutrophils % (Manual) 69 Band Neutrophils % (Manual) 5 H Lymphocytes % Lymphocytes % (Manual) 11 L Monocytes % Monocytes % (Manual) 12 H Eosinophils % Eosinophils % (Manual) 1 Basophils % Metamyelocytes % (manual) 2 H Nucleated Red Blood Cells % 1.0 H Immature Granulocytes # 3.070 H Neutrophils # Neutrophils # (Manual) 21.3 H Band Neutrophils # 1.5 H Lymphocytes (Manual) 3.3 H Lymphocytes # Monocytes # Monocytes # (Manual) 3.6 H Eosinophils # Basophils # Metamyelocytes # 0.6 H Nucleated Red Blood Cells # Pathologist Review (Hematology) YES Platelet Estimate DECREASED Polychromasia 1+ Hypochromasia 1+ Poikilocytosis 1+ Anisocytosis 1+ Microcytosis 1+ Macrocytosis 2+ Path Consult Signing Pathologist PAZ OLIVERA MD Sodium Level 126 L Potassium Level 5.2 H Chloride Level 94 L Carbon Dioxide Level 21 Anion Gap 11 Blood Urea Nitrogen 57 H Creatinine 1.56 H Est Glomerular Filtrat Rate mL/min 47 L Glucose Level 74 # Calcium Level 9.0 Total Bilirubin 21.9 H Direct Bilirubin 18.60 *H Indirect Bilirubin 3.3 H Aspartate Amino Transf (AST/SGOT) 621 H Alanine Aminotransferase (ALT/SGPT) 548 H Alkaline Phosphatase 296 H Ammonia 11 Total Protein 6.0 L Albumin 2.3 L Globulin 3.70 H Albumin/Globulin Ratio 0.62 Amylase Level 253 H Lipase 932 H Medications Medication Current Medications IV Flush (NS 3 ml) 3 ml PER PROTOCOL IV ; Start 11/08/18 at 20:30 Docusate Sodium (Colace) 100 mg Q12H PRN PO .CONSTIPATION; Start 11/08/18 at 20:30 Bisacodyl (Dulcolax) 5 mg DAILY PRN PO .CONSTIPATION; Start 11/08/18 at 20:30 Ondansetron HCl (Zofran Inj) 4 mg Q4H PRN IV NAUSEA AND/OR VOMITING; Start 11/08/18 at 20:30 Methylprednisolone Sodium Succinate (Solu-Medrol) 40 mg DAILY IV Last administered on 11/17/18 08:54; Admin Dose 40 MG; Start 11/08/18 at 20:30 Lisinopril (Zestril) 10 mg BID PO Last administered on 11/09/18 09:23; Admin Dose 10 MG; Start 11/08/18 at 21:00; Status Hold Thiamine HCl (Vitamin B1) 100 mg DAILY PO Last administered on 11/17/18 08:54; Admin Dose 100 MG; Start 11/09/18 at 09:00 Rifaximin (Xifaxan) 550 mg BID PO Last administered on 11/17/18 08:54; Admin Dose 550 MG; Start 11/09/18 at 00:00 Multivitamins Therapeutic (Theragran) 1 tab DAILY PO Last administered on 11/17/18 08:54; Admin Dose 1 TAB; Start 11/09/18 at 09:00 Folic Acid (Folic Acid) 1 mg DAILY PO Last administered on 11/17/18 08:55; Admin Dose 1 MG; Start 11/09/18 at 09:00 Ibuprofen (Motrin) 400 mg Q6H PRN PO MILD PAIN(1-3) OR TEMP>38C Last administered on 11/17/18 12:34; Admin Dose 400 MG; Start 11/09/18 at 11:30 Furosemide (Lasix) 40 mg DAILY PO Last administered on 11/17/18 08:55; Admin Dose 40 MG; Start 11/09/18 at 12:00 Pantoprazole (Protonix Tab) 40 mg DAILY@06 PO Last administered on 11/17/18 05:31; Admin Dose 40 MG; Start 11/10/18 at 06:00 Ceftriaxone Sodium 50 ml @ 100 mls/hr Q24H IVPB Last administered on 11/16/18 15:55; Admin Dose 100 MLS/HR; Start 11/11/18 at 14:30 Sodium Chloride (Nacl) 2 gm TID PO Last administered on 11/17/18 12:18; Admin Dose 2 GM; Start 11/15/18 at 13:00 Spironolactone (Aldactone) 50 mg DAILY PO ; Start 11/18/18 at 09:00 Lactulose (Enulose) 20 gm Q6 PO ; Start 11/17/18 at 18:00 MACARENA MOONEY MD Nov 17, 2018 13:52
[2018-11-17] MEDS: CEFTRIAXONE 1 GM/50 ML (PMX) 50 ML IVPB SCH (15:49)
[2018-11-18] VITALS (12 sets, daily range): BP systolic 97–127; BP diastolic 51–76; PULSE 20–98; RESP 18–19
[2018-11-18] MEDS ORDERED: HALOPERIDOL 5 MG INJ IM ONE (05:30)
[2018-11-18] MEDS: PANTOPRAZOLE (EC) 40 MG TAB PO SCH (05:43)
[2018-11-18] MEDS: LACTULOSE 30ML CUP PO SCH ×3 (05:44→18:09)
[2018-11-18] MEDS: ACETAMINOPHEN 325 MG TAB PO PRN ×2 (06:57→10:46)
[2018-11-18] MEDS ORDERED: SPIRONOLACTONE 50 MG TAB PO SCH (09:00)
[2018-11-18] MEDS: THIAMINE 100 MG TAB PO SCH (09:02)
[2018-11-18] MEDS: RIFAXIMIN 550 MG TAB PO SCH ×2 (09:03→21:35)
[2018-11-18] MEDS: SODIUM CHLORIDE 1 GM TAB PO SCH ×3 (09:03→21:35)
[2018-11-18] MEDS: FOLIC ACID 1 MG TAB PO SCH (09:03)
[2018-11-18] MEDS: MULTIVITAMINS THERAPEUTIC TAB PO SCH (09:03)
--- NOTE | 2018-11-18 10:55 | CONS ---
Assessment/Plan Assessment/Plan Assessment/Plan (Daily) 1. Hyponatremia (123 today) due to Hypervolemic Hyponatremia in setting of acute liver failure - Na chloride tablet 2 gram PO TID - s/p hypertonic 3% saline at 30 cc/ hr x 12 hr given yesterday 2. 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 Acute hepatic failure 4. Biliary colic vs cholecystitis 5. H/o alcohol abuse 6. acute kidney injury due to hepatorenal syndrome Plan: Cr bumped to 1.56- will stop Lisinorpil, K 5.2- will give Kayexalate 15 gram PO x 1 dose , d/c aldactone also , d/c PO lasix also Solu medrol 40mg iV daily Abdominal US in ED showed The right kidney measures 10.8 cm. There is normal echogenicity of the right kidney. There is no solid right renal mass, hydronephrosis, or calculus. There is a benign 1 cm cyst in the upper to mid right kidney. will follow up Consultation Date/Type/Reason Admit Date/Time Nov 08, 2018 at 19:37 Initial Consult Date 11/09/18 Type of Consult NEPHROLOGY Requesting Provider: SCOTT DOLL NP Date/Time of Note DATE: 11/18/18 TIME: 10:55 Exam/Review of Systems Exam Vitals Vital Signs Date Temp Pulse Resp B/P (MAP) Pulse Ox O2 O2 Flow FiO2 Time Delivery Rate 11/18/18 63 08:00 11/18/18 98.8 18 97/51 (66) 97 07:34 11/17/18 Room Air 15:28 Intake and Output 11/17/18 11/17/18 11/18/18 1515:00 23:00 07:00 IntakeIntake Total 530 ml 400 ml BalanceBalance 530 ml 400 ml Results Result Diagram: 11/18/18 0727 11/18/18 0727 Results 24hrs Laboratory Tests Test 11/18/18 07:27 White Blood Count 31.9 H Red Blood Count 2.47 L Hemoglobin 8.7 L Hematocrit 25.2 L Mean Corpuscular Volume 102.0 H Mean Corpuscular Hemoglobin 35.2 H Mean Corpuscular Hemoglobin Concent 34.5 Red Cell Distribution Width 19.9 H Platelet Count 87 #L Mean Platelet Volume 11.3 H Immature Granulocytes % 7.200 H Neutrophils % Segmented Neutrophils % (Manual) 82 H Lymphocytes % Lymphocytes % (Manual) 7 L Reactive Lymphocytes % (Manual) 2 H Monocytes % Monocytes % (Manual) 3 Eosinophils % Basophils % Metamyelocytes % (manual) 1 H Myelocytes % (Manual) 4 H Promyelocytes % (Manual) 1 H Nucleated Red Blood Cells % 1.0 H Immature Granulocytes # 2.290 H Neutrophils # Lymphocytes (Manual) 2.2 Lymphocytes # Reactive Lymphocytes # 0.6 H Monocytes # Monocytes # (Manual) 0.9 Eosinophils # Basophils # Metamyelocytes # 0.3 H Myelocytes # 1.2 H Promyelocytes # 0.3 H Nucleated Red Blood Cells # Platelet Estimate DECREASED Polychromasia 1+ Poikilocytosis 2+ Anisocytosis 3+ Macrocytosis 3+ Target Cells 1+ Sodium Level 125 L Potassium Level 5.1 Chloride Level 91 L Carbon Dioxide Level 22 Anion Gap 12 Blood Urea Nitrogen 65 H Creatinine 1.83 H Est Glomerular Filtrat Rate mL/min 39 L Glucose Level 80 Calcium Level 8.8 Total Bilirubin 21.6 H Direct Bilirubin 18.40 *H Indirect Bilirubin 3.2 H Aspartate Amino Transf (AST/SGOT) 940 #H Alanine Aminotransferase (ALT/SGPT) 653 H Alkaline Phosphatase 242 H Total Protein 5.6 L Albumin 2.1 L Globulin 3.50 H Albumin/Globulin Ratio 0.60 Medications Medication Current Medications IV Flush (NS 3 ml) 3 ml PER PROTOCOL IV ; Start 11/08/18 at 20:30 Docusate Sodium (Colace) 100 mg Q12H PRN PO .CONSTIPATION; Start 11/08/18 at 20:30 Bisacodyl (Dulcolax) 5 mg DAILY PRN PO .CONSTIPATION Last administered on 11/18/18at 10:46; Admin Dose 5 MG; Start 11/08/18 at 20:30 Ondansetron HCl (Zofran Inj) 4 mg Q4H PRN IV NAUSEA AND/OR VOMITING Last administered on 11/18/18at 06:27; Admin Dose 4 MG; Start 11/08/18 at 20:30 Thiamine HCl (Vitamin B1) 100 mg DAILY PO Last administered on 11/18/18at 09:02; Admin Dose 100 MG; Start 11/09/18 at 09:00 Rifaximin (Xifaxan) 550 mg BID PO Last administered on 11/18/18 09:03; Admin Dose 550 MG; Start 11/09/18 at 00:00 Multivitamins Therapeutic (Theragran) 1 tab DAILY PO Last administered on 11/18/18 09:03; Admin Dose 1 TAB; Start 11/09/18 at 09:00 Folic Acid (Folic Acid) 1 mg DAILY PO Last administered on 11/18/18 09:03; Admin Dose 1 MG; Start 11/09/18 at 09:00 Furosemide (Lasix) 40 mg DAILY PO Last administered on 11/17/18 08:55; Admin Dose 40 MG; Start 11/09/18 at 12:00; Status Hold Pantoprazole (Protonix Tab) 40 mg DAILY@06 PO Last administered on 11/18/18 05:43; Admin Dose 40 MG; Start 11/10/18 at 06:00 Ceftriaxone Sodium 50 ml @ 100 mls/hr Q24H IVPB Last administered on 11/17/18 15:49; Admin Dose 100 MLS/HR; Start 11/11/18 at 14:30 Sodium Chloride (Nacl) 2 gm TID PO Last administered on 11/18/18 09:03; Admin Dose 2 GM; Start 11/15/18 at 13:00 Lactulose (Enulose) 20 gm Q6 PO Last administered on 11/18/18 05:44; Admin Dose 20 GM; Start 11/17/18 at 18:00 Acetaminophen (Tylenol Tab) 650 mg Q6H PRN PO MILD PAIN(1-3)OR ELEVATED TEMP Last administered on 11/18/18 10:46; Admin Dose 650 MG; Start 11/18/18 at 07:00 BUCK CARO MD Nov 18, 2018 10:55
[2018-11-18] MEDS: oxyCODONE 5 MG TAB PO PRN (11:37)
[2018-11-18] MEDS: CEFTRIAXONE 1 GM/50 ML (PMX) 50 ML IVPB SCH (13:58)
--- NOTE | 2018-11-18 14:22 | PN ---
Date/Time of Note Date/Time of Note DATE: 11/18/18 TIME: 14:13 Assessment/Plan VTE Prophylaxis Risk score (from Ns)>0 risk: 3 SCD applied (from [facility]): Yes Pharmacological prophylaxis: other Pharm contraindication: liver dx Lines/Catheters IV [facility] Type ([facility] Peripheral IV Urinary Cath still in place: No Assessment/Plan Assessment/Plan 1. Hepatic encephalopathy, on lactulose/rifaximin, increase lactulose, zyprexa for agitation, sitter for safety 2. Hepato nephrotic syndrome, follow up with Dr. Baumann 3. Alcoholic liver disease with Liver Cirrhosis with portal hypertension/splenomegaly/ coagulopathy/ascites, follow up with GI 4. Acute pancreatitis, alcohol related, pain control, follow up with amylase and lipase 5. UTI, on rocephin 6. Normocytic anemia, follow up with H/H 7. Thrombocytopenia, alcohol related, follow up with PLT 8. Morbid Obesity, life style changes advised 9.Hypertension, controlled 10. Hyponatremia, stable 11. Poor prognosis, talked with family Result Diagram: 11/18/18 0727 11/18/18 0727 Results 24hrs Laboratory Tests Test 11/18/18 07:27 White Blood Count 31.9 H Red Blood Count 2.47 L Hemoglobin 8.7 L Hematocrit 25.2 L Mean Corpuscular Volume 102.0 H Mean Corpuscular Hemoglobin 35.2 H Mean Corpuscular Hemoglobin Concent 34.5 Red Cell Distribution Width 19.9 H Platelet Count 87 #L Mean Platelet Volume 11.3 H Immature Granulocytes % 7.200 H Neutrophils % Segmented Neutrophils % (Manual) 82 H Lymphocytes % Lymphocytes % (Manual) 7 L Reactive Lymphocytes % (Manual) 2 H Monocytes % Monocytes % (Manual) 3 Eosinophils % Basophils % Metamyelocytes % (manual) 1 H Myelocytes % (Manual) 4 H Promyelocytes % (Manual) 1 H Nucleated Red Blood Cells % 1.0 H Immature Granulocytes # 2.290 H Neutrophils # Lymphocytes (Manual) 2.2 Lymphocytes # Reactive Lymphocytes # 0.6 H Monocytes # Monocytes # (Manual) 0.9 Eosinophils # Basophils # Metamyelocytes # 0.3 H Myelocytes # 1.2 H Promyelocytes # 0.3 H Nucleated Red Blood Cells # Platelet Estimate DECREASED Polychromasia 1+ Poikilocytosis 2+ Anisocytosis 3+ Macrocytosis 3+ Target Cells 1+ Sodium Level 125 L Potassium Level 5.1 Chloride Level 91 L Carbon Dioxide Level 22 Anion Gap 12 Blood Urea Nitrogen 65 H Creatinine 1.83 H Est Glomerular Filtrat Rate mL/min 39 L Glucose Level 80 Calcium Level 8.8 Total Bilirubin 21.6 H Direct Bilirubin 18.40 *H Indirect Bilirubin 3.2 H Aspartate Amino Transf (AST/SGOT) 940 #H Alanine Aminotransferase (ALT/SGPT) 653 H Alkaline Phosphatase 242 H Total Protein 5.6 L Albumin 2.1 L Globulin 3.50 H Albumin/Globulin Ratio 0.60 Exam/Review of Systems Exam Vitals Vital Signs Date Temp Pulse Resp B/P (MAP) Pulse Ox O2 O2 Flow FiO2 Time Delivery Rate 11/18/18 70 12:00 11/18/18 98.7 19 124/74 94 11:35 (91) 11/17/18 Room Air 15:28 Intake and Output 11/17/18 11/17/18 11/18/18 1515:00 23:00 07:00 IntakeIntake Total 530 ml 400 ml BalanceBalance 530 ml 400 ml Constitutional: alert, other (agitaed, confused) Head: normocephalic, atraumatic Eyes: nl conjunctiva, EOMI, nl lids, PERRL, other (jaundice) ENMT: nl external ears & nose, nl lips & teeth, nl nasal mucosa & septum Neck: supple, non-tender Respiratory: clear to auscultation, normal air movement; No congested cough, No crackles/rales, No diminished breath sounds, No intercostal retraction, No labored breathing, No respirations, No tactile fremitus, No wheezing, No other Cardiovascular: regular rate and rhythm, nl pulses; No bruits, No diastolic murmur, No edema, No gallop, No irregular rhythm, No jugular venous distention (JVD), No murmurs/extra sounds, No rub, No systolic mu rmur, No S3, No S4, No other Gastrointestinal: distended Musculoskeletal: nl extremities to inspection Extremities: normal pulses; No calf tenderness, No cyanosis, No clubbing, No edema, No pitting pedal edema, No palpable cord, No tenderness, No other 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: [employer] II-XII intact, confused Results Results 24hrs Laboratory Tests Test 11/18/18 07:27 White Blood Count 31.9 H Red Blood Count 2.47 L Hemoglobin 8.7 L Hematocrit 25.2 L Mean Corpuscular Volume 102.0 H Mean Corpuscular Hemoglobin 35.2 H Mean Corpuscular Hemoglobin Concent 34.5 Red Cell Distribution Width 19.9 H Platelet Count 87 #L Mean Platelet Volume 11.3 H Immature Granulocytes % 7.200 H Neutrophils % Segmented Neutrophils % (Manual) 82 H Lymphocytes % Lymphocytes % (Manual) 7 L Reactive Lymphocytes % (Manual) 2 H Monocytes % Monocytes % (Manual) 3 Eosinophils % Basophils % Metamyelocytes % (manual) 1 H Myelocytes % (Manual) 4 H Promyelocytes % (Manual) 1 H Nucleated Red Blood Cells % 1.0 H Immature Granulocytes # 2.290 H Neutrophils # Lymphocytes (Manual) 2.2 Lymphocytes # Reactive Lymphocytes # 0.6 H Monocytes # Monocytes # (Manual) 0.9 Eosinophils # Basophils # Metamyelocytes # 0.3 H Myelocytes # 1.2 H Promyelocytes # 0.3 H Nucleated Red Blood Cells # Platelet Estimate DECREASED Polychromasia 1+ Poikilocytosis 2+ Anisocytosis 3+ Macrocytosis 3+ Target Cells 1+ Sodium Level 125 L Potassium Level 5.1 Chloride Level 91 L Carbon Dioxide Level 22 Anion Gap 12 Blood Urea Nitrogen 65 H Creatinine 1.83 H Est Glomerular Filtrat Rate mL/min 39 L Glucose Level 80 Calcium Level 8.8 Total Bilirubin 21.6 H Direct Bilirubin 18.40 *H Indirect Bilirubin 3.2 H Aspartate Amino Transf (AST/SGOT) 940 #H Alanine Aminotransferase (ALT/SGPT) 653 H Alkaline Phosphatase 242 H Total Protein 5.6 L Albumin 2.1 L Globulin 3.50 H Albumin/Globulin Ratio 0.60 Medications Medication Current Medications IV Flush (NS 3 ml) 3 ml PER PROTOCOL IV ; Start 11/08/18 at 20:30 Docusate Sodium (Colace) 100 mg Q12H PRN PO .CONSTIPATION; Start 11/08/18 at 20:30 Bisacodyl (Dulcolax) 5 mg DAILY PRN PO .CONSTIPATION Last administered on 11/18/18at 10:46; Admin Dose 5 MG; Start 11/08/18 at 20:30 Ondansetron HCl (Zofran Inj) 4 mg Q4H PRN IV NAUSEA AND/OR VOMITING Last administered on 11/18/18 06:27; Admin Dose 4 MG; Start 11/08/18 at 20:30 Thiamine HCl (Vitamin B1) 100 mg DAILY PO Last administered on 11/18/18 09:02; Admin Dose 100 MG; Start 11/09/18 at 09:00 Rifaximin (Xifaxan) 550 mg BID PO Last administered on 11/18/18 09:03; Admin Dose 550 MG; Start 11/09/18 at 00:00 Multivitamins Therapeutic (Theragran) 1 tab DAILY PO Last administered on 11/18/18 09:03; Admin Dose 1 TAB; Start 11/09/18 at 09:00 Folic Acid (Folic Acid) 1 mg DAILY PO Last administered on 11/18/18 09:03; Admin Dose 1 MG; Start 11/09/18 at 09:00 Furosemide (Lasix) 40 mg DAILY PO Last administered on 11/17/18 08:55; Admin Dose 40 MG; Start 11/09/18 at 12:00; Status Hold Pantoprazole (Protonix Tab) 40 mg DAILY@06 PO Last administered on 11/18/18 05:43; Admin Dose 40 MG; Start 11/10/18 at 06:00 Ceftriaxone Sodium 50 ml @ 100 mls/hr Q24H IVPB Last administered on 11/18/18 13:58; Admin Dose 100 MLS/HR; Start 11/11/18 at 14:30 Sodium Chloride (Nacl) 2 gm TID PO Last administered on 11/18/18 13:57; Admin Dose 2 GM; Start 11/15/18 at 13:00 Acetaminophen (Tylenol Tab) 650 mg Q6H PRN PO MILD PAIN(1-3)OR ELEVATED TEMP Last administered on 11/18/18 10:46; Admin Dose 650 MG; Start 11/18/18 at 07:00 Oxycodone HCl (Roxicodone) 5 mg Q6H PRN PO MODERATE PAIN LEVEL 4-6 Last administered on 11/18/18 11:37; Admin Dose 5 MG; Start 11/18/18 at 11:30 Lactulose (Enulose) 30 gm Q6 PO ; Start 11/18/18 at 18:00; Status UNV Olanzapine (Zyprexa) 5 mg Q12H PRN IM agitation; Start 11/18/18 at 14:30; Status UNV Bisacodyl (Dulcolax Supp) 10 mg ONCE ONCE OR ; Start 11/18/18 at 14:30; Stop 11/18/18 at 14:31; Status UNV Morphine Sulfate (morphine) 2 mg Q4H PRN IV SEVERE PAIN LEVEL 7-10; Start 11/18/18 at 14:30; Status UNV MACARENA MOONEY MD Nov 18, 2018 14:22
[2018-11-18] MEDS ORDERED: BISACODYL 10 MG SUPP PR ONE (14:30)
[2018-11-18] MEDS: DEXTROSE 5%-0.9% NACL 1,000 ML IV SCH (14:53)
--- NOTE | 2018-11-18 15:22 | PN ---
Date/Time of Note Date/Time of Note DATE: 11/18/18 TIME: 15:17 Assessment/Plan VTE Prophylaxis Risk score (from [facility])>0 risk: 3 SCD applied (from [facility]): Yes Pharmacological prophylaxis: NA/contraindicated Pharm contraindication: liver dx, thrombocytopenia, renal impairment Lines/Catheters IV C[facility]ter Type (from [facility]): Peripheral IV Urinary Cath still in place: No Assessment/Plan Hospital Course Assessment/Plan Hepatic encephalopathy Decompensated liver cirrhosis from alcoholism. Alcoholic hepatitis- steroid tx stopped as patient was not responding Leukocytosis Coagulopathy: . Thrombocytopenia Transaminitis Pancreatitis UTI Obesity Hypertension SCOTTY -per nephrology 2/2 HRS Hyponatremia- nephrology following Hepatitis C AB positive- with negative RNA Plan: Continue rifaximin/lactulose for hepatic encephalopathy Supportive care- close observation Abd u/s to assess for ascites - as WBC trending up despite stopping steroid tx, albeit medication was stopped yesterday, if positive for ascites will attmept to correct coagulation for paracentesis Patient seen in collaboration with Dr. Nuñez Subjective: Patient's overall status continues to decline despite current treatment plan Limited option for treatment, including liver transplant given recent alcohol use. we will continue current regimen and provede supportive treatment. Pt confused but able to answer questions- he denies n/v or abd pain. PHYSICAL EXAMINATION: GENERAL: Obese, awake & confused, Jaundice SKIN: No lesions, profound jaundice, ecchymosis on upper and lower extremities HEAD: Normocephalic, atraumatic, no tenderness. EYES: Pupils equal reactive to light and accommodation, no discharge. EARS/NOSE AND THROAT: Ears normal, nose normal NECK: Supple, no masses CHEST: Inspection within normal limits. CARDIOVASCULAR: Heart: Regular rate and rhythm RESPIRATORY: Lungs clear to auscultation. GASTROINTESTINAL AND LIVER: Abdomen: Soft, generalized tenderness, non- distended, +ascites, no guarding, no rebound tenderness, normoactive bowel sounds. Rectal: Deferred. Result Diagram: 11/18/1872611/18/18726 Results 24hrs Laboratory Tests Test 11/18/18 07:27 White Blood Count 31.9 H Red Blood Count 2.47 L Hemoglobin 8.7 L Hematocrit 25.2 L Mean Corpuscular Volume 102.0 H Mean Corpuscular Hemoglobin 35.2 H Mean Corpuscular Hemoglobin Concent 34.5 Red Cell Distribution Width 19.9 H Platelet Count 87 #L Mean Platelet Volume 11.3 H Immature Granulocytes % 7.200 H Neutrophils % Segmented Neutrophils % (Manual) 82 H Lymphocytes % Lymphocytes % (Manual) 7 L Reactive Lymphocytes % (Manual) 2 H Monocytes % Monocytes % (Manual) 3 Eosinophils % Basophils % Metamyelocytes % (manual) 1 H Myelocytes % (Manual) 4 H Promyelocytes % (Manual) 1 H Nucleated Red Blood Cells % 1.0 H Immature Granulocytes # 2.290 H Neutrophils # Lymphocytes (Manual) 2.2 Lymphocytes # Reactive Lymphocytes # 0.6 H Monocytes # Monocytes # (Manual) 0.9 Eosinophils # Basophils # Metamyelocytes # 0.3 H Myelocytes # 1.2 H Promyelocytes # 0.3 H Nucleated Red Blood Cells # Platelet Estimate DECREASED Polychromasia 1+ Poikilocytosis 2+ Anisocytosis 3+ Macrocytosis 3+ Target Cells 1+ Sodium Level 125 L Potassium Level 5.1 Chloride Level 91 L Carbon Dioxide Level 22 Anion Gap 12 Blood Urea Nitrogen 65 H Creatinine 1.83 H Est Glomerular Filtrat Rate mL/min 39 L Glucose Level 80 Calcium Level 8.8 Total Bilirubin 21.6 H Direct Bilirubin 18.40 *H Indirect Bilirubin 3.2 H Aspartate Amino Transf (AST/SGOT) 940 #H Alanine Aminotransferase (ALT/SGPT) 653 H Alkaline Phosphatase 242 H Total Protein 5.6 L Albumin 2.1 L Globulin 3.50 H Albumin/Globulin Ratio 0.60 Exam/Review of Systems Exam Vitals Vital Signs Date Temp Pulse Resp B/P (MAP) Pulse Ox O2 O2 Flow FiO2 Time Delivery Rate 11/18/18 70 12:00 11/18/18 98.7 19 124/74 94 11:35 (91) 11/17/18 Room Air 15:28 Intake and Output 11/17/18 11/17/18 11/18/18 1515:00 23:00 07:00 IntakeIntake Total 530 ml 400 ml BalanceBalance 530 ml 400 ml Results Results 24hrs Laboratory Tests Test 11/18/18 07:27 White Blood Count 31.9 H Red Blood Count 2.47 L Hemoglobin 8.7 L Hematocrit 25.2 L Mean Corpuscular Volume 102.0 H Mean Corpuscular Hemoglobin 35.2 H Mean Corpuscular Hemoglobin Concent 34.5 Red Cell Distribution Width 19.9 H Platelet Count 87 #L Mean Platelet Volume 11.3 H Immature Granulocytes % 7.200 H Neutrophils % Segmented Neutrophils % (Manual) 82 H Lymphocytes % Lymphocytes % (Manual) 7 L Reactive Lymphocytes % (Manual) 2 H Monocytes % Monocytes % (Manual) 3 Eosinophils % Basophils % Metamyelocytes % (manual) 1 H Myelocytes % (Manual) 4 H Promyelocytes % (Manual) 1 H Nucleated Red Blood Cells % 1.0 H Immature Granulocytes # 2.290 H Neutrophils # Lymphocytes (Manual) 2.2 Lymphocytes # Reactive Lymphocytes # 0.6 H Monocytes # Monocytes # (Manual) 0.9 Eosinophils # Basophils # Metamyelocytes # 0.3 H Myelocytes # 1.2 H Promyelocytes # 0.3 H Nucleated Red Blood Cells # Platelet Estimate DECREASED Polychromasia 1+ Poikilocytosis 2+ Anisocytosis 3+ Macrocytosis 3+ Target Cells 1+ Sodium Level 125 L Potassium Level 5.1 Chloride Level 91 L Carbon Dioxide Level 22 Anion Gap 12 Blood Urea Nitrogen 65 H Creatinine 1.83 H Est Glomerular Filtrat Rate mL/min 39 L Glucose Level 80 Calcium Level 8.8 Total Bilirubin 21.6 H Direct Bilirubin 18.40 *H Indirect Bilirubin 3.2 H Aspartate Amino Transf (AST/SGOT) 940 #H Alanine Aminotransferase (ALT/SGPT) 653 H Alkaline Phosphatase 242 H Total Protein 5.6 L Albumin 2.1 L Globulin 3.50 H Albumin/Globulin Ratio 0.60 Medications Medication Current Medications IV Flush (NS 3 ml) 3 ml PER PROTOCOL IV ; Start 11/08/18 at 20:30 Docusate Sodium (Colace) 100 mg Q12H PRN PO .CONSTIPATION; Start 11/08/18 at 20:30 Bisacodyl (Dulcolax) 5 mg DAILY PRN PO .CONSTIPATION Last administered on 11/18/18at 10:46; Admin Dose 5 MG; Start 11/08/18 at 20:30 Ondansetron HCl (Zofran Inj) 4 mg Q4H PRN IV NAUSEA AND/OR VOMITING Last administered on 11/18/18at 06:27; Admin Dose 4 MG; Start 11/08/18 at 20:30 Thiamine HCl (Vitamin B1) 100 mg DAILY PO Last administered on 11/18/18at 09:02; Admin Dose 100 MG; Start 11/09/18 at 09:00 Rifaximin (Xifaxan) 550 mg BID PO Last administered on 11/18/18 09:03; Admin Dose 550 MG; Start 11/09/18 at 00:00 Multivitamins Therapeutic (Theragran) 1 tab DAILY PO Last administered on 11/18/18 09:03; Admin Dose 1 TAB; Start 11/09/18 at 09:00 Folic Acid (Folic Acid) 1 mg DAILY PO Last administered on 11/18/18 09:03; Admin Dose 1 MG; Start 11/09/18 at 09:00 Pantoprazole (Protonix Tab) 40 mg DAILY@06 PO Last administered on 11/18/18 05:43; Admin Dose 40 MG; Start 11/10/18 at 06:00 Sodium Chloride (Nacl) 2 gm TID PO Last administered on 11/18/18 13:57; Admin Dose 2 GM; Start 11/15/18 at 13:00 Acetaminophen (Tylenol Tab) 650 mg Q6H PRN PO MILD PAIN(1-3)OR ELEVATED TEMP Last administered on 11/18/18 10:46; Admin Dose 650 MG; Start 11/18/18 at 07:00 Oxycodone HCl (Roxicodone) 5 mg Q6H PRN PO MODERATE PAIN LEVEL 4-6 Last administered on 11/18/18 11:37; Admin Dose 5 MG; Start 11/18/18 at 11:30 Lactulose (Enulose) 30 gm Q6 PO ; Start 11/18/18 at 18:00 Olanzapine (Zyprexa) 5 mg Q12H PRN IM agitation; Start 11/18/18 at 14:30 Morphine Sulfate (morphine) 2 mg Q4H PRN IV SEVERE PAIN LEVEL 7-10; Start 11/18/18 at 14:30 Dextrose/Sodium Chloride 1,000 ml @ 75 mls/hr [id number] IV Last administered on 11/18/18 14:53; Admin Dose 75 MLS/HR; Start 11/18/18 at 14:30 LUDWIG LOPEZ Nov 18, 2018 15:22
[2018-11-18] MEDS: morphine 2 MG INJ IV PRN (16:31)
[2018-11-18] MEDS ORDERED: FUROSEMIDE 20 MG INJ IV ONE (18:00)
[2018-11-18] MEDS: ALBUMIN HUMAN 25% 50 ML IV SCH (18:27)
[2018-11-19] VITALS (10 sets, daily range): BP systolic 81–113; BP diastolic 44–92; PULSE 74–99; RESP 17–20
[2018-11-19] MEDS: OLANZAPINE 10 MG VIAL IM PRN ×2 (01:11→20:40)
[2018-11-19] MEDS: LACTULOSE 30ML CUP PO SCH ×3 (01:11→12:21)
[2018-11-19] MEDS ORDERED: LORAZEPAM 2 MG INJ IV ONE (02:00)
[2018-11-19] MEDS ORDERED: HALOPERIDOL 5 MG INJ IM ONE (02:00)
[2018-11-19] MEDS: ALBUMIN HUMAN 25% 50 ML IV SCH ×2 (02:31→10:03)
[2018-11-19] MEDS: DEXTROSE 5%-0.9% NACL 1,000 ML IV SCH ×2 (04:53→17:07)
[2018-11-19] MEDS: PANTOPRAZOLE (EC) 40 MG TAB PO SCH (04:54)
[2018-11-19] MEDS: SODIUM CHLORIDE 1 GM TAB PO SCH ×3 (08:59→20:40)
[2018-11-19] MEDS: FOLIC ACID 1 MG TAB PO SCH (08:59)
[2018-11-19] MEDS: RIFAXIMIN 550 MG TAB PO SCH ×2 (09:00→20:40)
[2018-11-19] MEDS: THIAMINE 100 MG TAB PO SCH (09:00)
[2018-11-19] MEDS: MULTIVITAMINS THERAPEUTIC TAB PO SCH (09:00)
[2018-11-19] MEDS: morphine 2 MG INJ IV PRN ×2 (10:19→22:42)
[2018-11-19] MEDS ORDERED: SOD CHLORIDE 0.9% 500 ML IV ONE (14:30)
[2018-11-19] MEDS ORDERED: NA POLYST SULFON 15 GM/60 ML BTL PR ONE (15:00)
[2018-11-19] MEDS ORDERED: SOD CHLORIDE 0.9% 250 ML IV* ONE (15:01)
--- NOTE | 2018-11-19 15:01 | PN ---
Date/Time of Note Date/Time of Note DATE: 11/19/18 TIME: 14:44 Assessment/Plan VTE Prophylaxis Risk score (from Ns)>0 risk: 5 SCD applied (from [facility]): Yes Pharmacological prophylaxis: NA/contraindicated Pharm contraindication: liver dx Lines/Catheters IV Catheter Type (from [facility]): Peripheral IV Urinary Cath still in place: Yes Reason Cath still needed: other (indicate) Assessment/Plan Assessment/Plan Assessment/Plan Hepatic encephalopathy Decompensated liver cirrhosis from alcoholism. Alcoholic hepatitis- steroid tx stopped as patient was not responding Leukocytosis Coagulopathy: . Thrombocytopenia Transaminitis Pancreatitis UTI Obesity Hypertension SCOTTY -per nephrology 2/2 HRS Hyponatremia- nephrology following Hepatitis C AB positive- with negative RNA Plan: Switch lactulose to CA for hepatic encephalopathy Supportive care- close observation Abd u/s to assess for ascites - small ascites PRBC's ordered Patient seen in collaboration with Dr. Nuñez Subjective: Patient is obtundent today. Worsening of the labs today. Dr. Huizar discussed prognosis with the daughter and comfort care options. Continue observation. PHYSICAL EXAMINATION: GENERAL: Obese, obtundent, Jaundice SKIN: No lesions, profound jaundice, ecchymosis on upper and lower extremities HEAD: Normocephalic, atraumatic, no tenderness. EYES: Pupils equal reactive to light and accommodation, no discharge. EARS/NOSE AND THROAT: Ears normal, nose normal NECK: Supple, no masses CHEST: Inspection within normal limits. CARDIOVASCULAR: Heart: Regular rate and rhythm RESPIRATORY: Lungs clear to auscultation. GASTROINTESTINAL AND LIVER: Abdomen: Soft, generalized tenderness, non- distended, +ascites, no guarding, no rebound tenderness, normoactive bowel sounds. Rectal: Deferred. Result Diagram: 11/19/18 0808 11/19/18 0808 Results 24hrs Laboratory Tests Test 11/19/18 08:08 White Blood Count 32.8 H Red Blood Count 1.96 #L Hemoglobin 7.1 L Hematocrit 20.7 L Mean Corpuscular Volume 105.6 H Mean Corpuscular Hemoglobin 36.2 H Mean Corpuscular Hemoglobin Concent 34.3 Red Cell Distribution Width 20.3 H Platelet Count 43 #L Mean Platelet Volume 11.3 H Immature Granulocytes % 4.600 H Neutrophils % Segmented Neutrophils % (Manual) 72 Band Neutrophils % (Manual) 15 H Lymphocytes % Lymphocytes % (Manual) 6 L Reactive Lymphocytes % (Manual) 1 H Monocytes % Monocytes % (Manual) 3 Eosinophils % Basophils % Metamyelocytes % (manual) 3 H Nucleated Red Blood Cells % 4 H Immature Granulocytes # 1.500 H Neutrophils # Neutrophils # (Manual) 25.2 H Band Neutrophils # 4.9 H Lymphocytes (Manual) 1.9 Lymphocytes # Reactive Lymphocytes # 0.3 H Monocytes # Monocytes # (Manual) 0.9 Eosinophils # Basophils # Metamyelocytes # 0.9 H Nucleated Red Blood Cells # Platelet Estimate SIG DECREASED Polychromasia 1+ Poikilocytosis 3+ Anisocytosis 3+ Macrocytosis 3+ Target Cells 2+ Sodium Level 121 L Potassium Level 5.7 H Chloride Level 90 L Carbon Dioxide Level 17 L Anion Gap 14 H Blood Urea Nitrogen 73 H Creatinine 2.93 #H Est Glomerular Filtrat Rate mL/min 23 L Glucose Level 84 Calcium Level 8.3 L Total Bilirubin 23.0 H Direct Bilirubin 19.30 *H Indirect Bilirubin 3.7 H Aspartate Amino Transf (AST/SGOT) 949 H Alanine Aminotransferase (ALT/SGPT) 603 H Alkaline Phosphatase 171 H Ammonia 15 Total Protein 4.9 L Albumin 1.9 L Globulin 3.00 Albumin/Globulin Ratio 0.63 Amylase Level 820 H Lipase 3053 H CC: LASHON NUÑEZ MD ; Exam/Review of Systems Exam Vitals Vital Signs Date Temp Pulse Resp B/P (MAP) Pulse Ox O2 O2 Flow FiO2 Time Delivery Rate 11/19/18 98.0 86 20 110/44 93 Nasal 12:30 (66) Cannula Intake and Output 11/18/18 11/18/18 11/19/18 1515:00 23:00 07:00 IntakeIntake Total 1950 ml OutputOutput Total 1200 ml BalanceBalance 750 ml Results Results 24hrs Laboratory Tests Test 11/19/18 08:08 White Blood Count 32.8 H Red Blood Count 1.96 #L Hemoglobin 7.1 L Hematocrit 20.7 L Mean Corpuscular Volume 105.6 H Mean Corpuscular Hemoglobin 36.2 H Mean Corpuscular Hemoglobin Concent 34.3 Red Cell Distribution Width 20.3 H Platelet Count 43 #L Mean Platelet Volume 11.3 H Immature Granulocytes % 4.600 H Neutrophils % Segmented Neutrophils % (Manual) 72 Band Neutrophils % (Manual) 15 H Lymphocytes % Lymphocytes % (Manual) 6 L Reactive Lymphocytes % (Manual) 1 H Monocytes % Monocytes % (Manual) 3 Eosinophils % Basophils % Metamyelocytes % (manual) 3 H Nucleated Red Blood Cells % 4 H Immature Granulocytes # 1.500 H Neutrophils # Neutrophils # (Manual) 25.2 H Band Neutrophils # 4.9 H Lymphocytes (Manual) 1.9 Lymphocytes # Reactive Lymphocytes # 0.3 H Monocytes # Monocytes # (Manual) 0.9 Eosinophils # Basophils # Metamyelocytes # 0.9 H Nucleated Red Blood Cells # Platelet Estimate SIG DECREASED Polychromasia 1+ Poikilocytosis 3+ Anisocytosis 3+ Macrocytosis 3+ Target Cells 2+ Sodium Level 121 L Potassium Level 5.7 H Chloride Level 90 L Carbon Dioxide Level 17 L Anion Gap 14 H Blood Urea Nitrogen 73 H Creatinine 2.93 #H Est Glomerular Filtrat Rate mL/min 23 L Glucose Level 84 Calcium Level 8.3 L Total Bilirubin 23.0 H Direct Bilirubin 19.30 *H Indirect Bilirubin 3.7 H Aspartate Amino Transf (AST/SGOT) 949 H Alanine Aminotransferase (ALT/SGPT) 603 H Alkaline Phosphatase 171 H Ammonia 15 Total Protein 4.9 L Albumin 1.9 L Globulin 3.00 Albumin/Globulin Ratio 0.63 Amylase Level 820 H Lipase 3053 H Medications Medication Current Medications IV Flush (NS 3 ml) 3 ml PER PROTOCOL IV ; Start 11/08/18 at 20:30 Docusate Sodium (Colace) 100 mg Q12H PRN PO .CONSTIPATION; Start 11/08/18 at 20:30 Bisacodyl (Dulcolax) 5 mg DAILY PRN PO .CONSTIPATION Last administered on 11/18/18at 10:46; Admin Dose 5 MG; Start 11/08/18 at 20:30 Ondansetron HCl (Zofran Inj) 4 mg Q4H PRN IV NAUSEA AND/OR VOMITING Last administered on 11/18/18at 06:27; Admin Dose 4 MG; Start 11/08/18 at 20:30 Thiamine HCl (Vitamin B1) 100 mg DAILY PO Last administered on 11/19/18at 09:00; Admin Dose 100 MG; Start 11/09/18 at 09:00 Rifaximin (Xifaxan) 550 mg BID PO Last administered on 11/19/18at 09:00; Admin Dose 550 MG; Start 11/09/18 at 00:00 Multivitamins Therapeutic (Theragran) 1 tab DAILY PO Last administered on 11/19/18 09:00; Admin Dose 1 TAB; Start 11/09/18 at 09:00 Folic Acid (Folic Acid) 1 mg DAILY PO Last administered on 11/19/18 08:59; Admin Dose 1 MG; Start 11/09/18 at 09:00 Pantoprazole (Protonix Tab) 40 mg DAILY@06 PO Last administered on 11/19/18 04:54; Admin Dose 40 MG; Start 11/10/18 at 06:00 Sodium Chloride (Nacl) 2 gm TID PO Last administered on 11/19/18 12:20; Admin Dose 2 GM; Start 11/15/18 at 13:00 Acetaminophen (Tylenol Tab) 650 mg Q6H PRN PO MILD PAIN(1-3)OR ELEVATED TEMP Last administered on 11/18/18 10:46; Admin Dose 650 MG; Start 11/18/18 at 07:00 Oxycodone HCl (Roxicodone) 5 mg Q6H PRN PO MODERATE PAIN LEVEL 4-6 Last administered on 11/18/18 11:37; Admin Dose 5 MG; Start 11/18/18 at 11:30 Lactulose (Enulose) 30 gm Q6 PO Last administered on 11/19/18 12:21; Admin Dose 30 GM; Start 11/18/18 at 18:00 Olanzapine (Zyprexa) 5 mg Q12H PRN IM agitation Last administered on 11/19/18 01:11; Admin Dose 5 MG; Start 11/18/18 at 14:30 Morphine Sulfate (morphine) 2 mg Q4H PRN IV SEVERE PAIN LEVEL 7-10 Last administered on 11/19/18 10:19; Admin Dose 2 MG; Start 11/18/18 at 14:30 Dextrose/Sodium Chloride 1,000 ml @ 75 mls/hr [id number] IV Last administered on 11/19/18 04:53; Admin Dose 75 MLS/HR; Start 11/18/18 at 14:30 Sodium Chloride 500 ml @ 500 mls/hr Q1H ONCE IV Last administered on 11/19/18 14:21; Admin Dose 500 MLS/HR; Start 11/19/18 at 14:30; Stop 4/26/19 at 15:29 SOPHIA DEJESUS NP Nov 19, 2018 14:54
--- NOTE | 2018-11-19 15:01 | PN ---
Date/Time of Note Date/Time of Note DATE: 11/19/18 TIME: 14:56 Assessment/Plan VTE Prophylaxis Risk score (from [place])>0 risk: 5 [place] [facility] [place] Pharmacological prophylaxis: other Pharm contraindication: liver dx Lines/Catheters IV Catheter Type (from [facility]): Peripheral IV Urinary Cath still in place: Yes Reason Cath still needed: other (indicate) Assessment/Plan Assessment/Plan 1. Hepatic encephalopathy, on lactulose/rifaximin, increase lactulose, zyprexa for agitation 2. Hepato nephrotic syndrome, follow up with Dr. Baumann, may need HD soon 3. Alcoholic liver disease with Liver Cirrhosis with portal hypertension/spleno megaly/ coagulopathy/ascites, follow up with GI 4. Acute pancreatitis, alcohol related, pain control, follow up with lipase 5. UTI, treated 6. Normocytic anemia, one unit PRBC 11/19/2018, follow up with H/H 7. Thrombocytopenia, alcohol and liver cirrhosis related, follow up with PLT 8. Morbid Obesity, life style changes advised 9.Hypertension, controlled 10. Hyponatremia, stable 11. Poor prognosis, talked with family, full code 12. Hyperkalemia, Kayexalate rectally Result Diagram: 11/19/18 0808 11/19/18 0808 Results 24hrs Laboratory Tests Test 11/19/18 08:08 White Blood Count 32.8 H Red Blood Count 1.96 #L Hemoglobin 7.1 L Hematocrit 20.7 L Mean Corpuscular Volume 105.6 H Mean Corpuscular Hemoglobin 36.2 H Mean Corpuscular Hemoglobin Concent 34.3 Red Cell Distribution Width 20.3 H Platelet Count 43 #L Mean Platelet Volume 11.3 H Immature Granulocytes % 4.600 H Neutrophils % Segmented Neutrophils % (Manual) 72 Band Neutrophils % (Manual) 15 H Lymphocytes % Lymphocytes % (Manual) 6 L Reactive Lymphocytes % (Manual) 1 H Monocytes % Monocytes % (Manual) 3 Eosinophils % Basophils % Metamyelocytes % (manual) 3 H Nucleated Red Blood Cells % 4 H Immature Granulocytes # 1.500 H Neutrophils # Neutrophils # (Manual) 25.2 H Band Neutrophils # 4.9 H Lymphocytes (Manual) 1.9 Lymphocytes # Reactive Lymphocytes # 0.3 H Monocytes # Monocytes # (Manual) 0.9 Eosinophils # Basophils # Metamyelocytes # 0.9 H Nucleated Red Blood Cells # Platelet Estimate SIG DECREASED Polychromasia 1+ Poikilocytosis 3+ Anisocytosis 3+ Macrocytosis 3+ Target Cells 2+ Sodium Level 121 L Potassium Level 5.7 H Chloride Level 90 L Carbon Dioxide Level 17 L Anion Gap 14 H Blood Urea Nitrogen 73 H Creatinine 2.93 #H Est Glomerular Filtrat Rate mL/min 23 L Glucose Level 84 Calcium Level 8.3 L Total Bilirubin 23.0 H Direct Bilirubin 19.30 *H Indirect Bilirubin 3.7 H Aspartate Amino Transf (AST/SGOT) 949 H Alanine Aminotransferase (ALT/SGPT) 603 H Alkaline Phosphatase 171 H Ammonia 15 Total Protein 4.9 L Albumin 1.9 L Globulin 3.00 Albumin/Globulin Ratio 0.63 Amylase Level 820 H Lipase 3053 H Subjective 24 Hr Interval Summary Free Text/Dictation confused and lethargic Exam/Review of Systems Exam Vitals Vital Signs Date Temp Pulse Resp B/P (MAP) Pulse Ox O2 O2 Flow FiO2 Time Delivery Rate 11/19/18 98.0 86 20 110/44 93 Nasal 12:30 (66) Cannula Intake and Output 11/18/18 11/18/18 11/19/18 1414:59 22:59 06:59 IntakeIntake Total 1950 ml OutputOutput Total 1200 ml BalanceBalance 750 ml Constitutional: obese, other (confused) Head: normocephalic, atraumatic Eyes: nl conjunctiva, EOMI, nl lids, other (jaundice) ENMT: nl external ears & nose, nl lips & teeth, nl nasal mucosa & septum, mucosa pink and moist Respiratory: clear to auscultation Cardiovascular: regular rate and rhythm Gastrointestinal: soft, nl liver, spleen Musculoskeletal: nl extremities to inspection Extremities: normal pulses; No calf tenderness, No cyanosis, No clubbing, No edema, No pitting pedal edema, No palpable cord, No tenderness, No other 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: confused Results Results 24hrs Laboratory Tests Test 11/19/18 08:08 White Blood Count 32.8 H Red Blood Count 1.96 #L Hemoglobin 7.1 L Hematocrit 20.7 L Mean Corpuscular Volume 105.6 H Mean Corpuscular Hemoglobin 36.2 H Mean Corpuscular Hemoglobin Concent 34.3 Red Cell Distribution Width 20.3 H Platelet Count 43 #L Mean Platelet Volume 11.3 H Immature Granulocytes % 4.600 H Neutrophils % Segmented Neutrophils % (Manual) 72 Band Neutrophils % (Manual) 15 H Lymphocytes % Lymphocytes % (Manual) 6 L Reactive Lymphocytes % (Manual) 1 H Monocytes % Monocytes % (Manual) 3 Eosinophils % Basophils % Metamyelocytes % (manual) 3 H Nucleated Red Blood Cells % 4 H Immature Granulocytes # 1.500 H Neutrophils # Neutrophils # (Manual) 25.2 H Band Neutrophils # 4.9 H Lymphocytes (Manual) 1.9 Lymphocytes # Reactive Lymphocytes # 0.3 H Monocytes # Monocytes # (Manual) 0.9 Eosinophils # Basophils # Metamyelocytes # 0.9 H Nucleated Red Blood Cells # Platelet Estimate SIG DECREASED Polychromasia 1+ Poikilocytosis 3+ Anisocytosis 3+ Macrocytosis 3+ Target Cells 2+ Sodium Level 121 L Potassium Level 5.7 H Chloride Level 90 L Carbon Dioxide Level 17 L Anion Gap 14 H Blood Urea Nitrogen 73 H Creatinine 2.93 #H Est Glomerular Filtrat Rate mL/min 23 L Glucose Level 84 Calcium Level 8.3 L Total Bilirubin 23.0 H Direct Bilirubin 19.30 *H Indirect Bilirubin 3.7 H Aspartate Amino Transf (AST/SGOT) 949 H Alanine Aminotransferase (ALT/SGPT) 603 H Alkaline Phosphatase 171 H Ammonia 15 Total Protein 4.9 L Albumin 1.9 L Globulin 3.00 Albumin/Globulin Ratio 0.63 Amylase Level 820 H Lipase 3053 H Medications Medication Current Medications IV Flush (NS 3 ml) 3 ml PER PROTOCOL IV ; Start 11/08/18 at 20:30 Docusate Sodium (Colace) 100 mg Q12H PRN PO .CONSTIPATION; Start 11/08/18 at 20:30 Bisacodyl (Dulcolax) 5 mg DAILY PRN PO .CONSTIPATION Last administered on 11/18/18at 10:46; Admin Dose 5 MG; Start 11/08/18 at 20:30 Ondansetron HCl (Zofran Inj) 4 mg Q4H PRN IV NAUSEA AND/OR VOMITING Last administered on 11/18/18at 06:27; Admin Dose 4 MG; Start 11/08/18 at 20:30 Thiamine HCl (Vitamin B1) 100 mg DAILY PO Last administered on 11/19/18at 09:00; Admin Dose 100 MG; Start 11/09/18 at 09:00 Rifaximin (Xifaxan) 550 mg BID PO Last administered on 11/19/18 09:00; Admin Dose 550 MG; Start 11/09/18 at 00:00 Multivitamins Therapeutic (Theragran) 1 tab DAILY PO Last administered on 11/19/18 09:00; Admin Dose 1 TAB; Start 11/09/18 at 09:00 Folic Acid (Folic Acid) 1 mg DAILY PO Last administered on 11/19/18 08:59; Admin Dose 1 MG; Start 11/09/18 at 09:00 Pantoprazole (Protonix Tab) 40 mg DAILY@06 PO Last administered on 11/19/18 04:54; Admin Dose 40 MG; Start 11/10/18 at 06:00 Sodium Chloride (Nacl) 2 gm TID PO Last administered on 11/19/18 12:20; Admin Dose 2 GM; Start 11/15/18 at 13:00 Acetaminophen (Tylenol Tab) 650 mg Q6H PRN PO MILD PAIN(1-3)OR ELEVATED TEMP Last administered on 11/18/18 10:46; Admin Dose 650 MG; Start 11/18/18 at 07:00 Oxycodone HCl (Roxicodone) 5 mg Q6H PRN PO MODERATE PAIN LEVEL 4-6 Last administered on 11/18/18 11:37; Admin Dose 5 MG; Start 11/18/18 at 11:30 Lactulose (Enulose) 30 gm Q6 PO Last administered on 11/19/18 12:21; Admin Dose 30 GM; Start 11/18/18 at 18:00 Olanzapine (Zyprexa) 5 mg Q12H PRN IM agitation Last administered on 11/19/18 01:11; Admin Dose 5 MG; Start 11/18/18 at 14:30 Morphine Sulfate (morphine) 2 mg Q4H PRN IV SEVERE PAIN LEVEL 7-10 Last administered on 11/19/18 10:19; Admin Dose 2 MG; Start 11/18/18 at 14:30 Dextrose/Sodium Chloride 1,000 ml @ 75 mls/hr [id number] IV Last administered on 11/19/18 04:53; Admin Dose 75 MLS/HR; Start 11/18/18 at 14:30 Sodium Chloride 500 ml @ 500 mls/hr Q1H ONCE IV Last administered on 4/26/19at 14:21; Admin Dose 500 MLS/HR; Start 11/19/18 at 14:30; Stop 11/19/18 at 15:29 MACARENA MOONEY MD Nov 19, 2018 15:01
[2018-11-19] MEDS: oxyCODONE 5 MG TAB PO PRN (20:39)
[2018-11-19] MEDS: LACTULOSE ENEMA 1,000 ML BTL PR SCH (21:20)
[2018-11-20] VITALS (46 sets, daily range): BP systolic 60–131; BP diastolic 33–92; PULSE 0–122; RESP 13–33
--- NOTE | 2018-11-20 01:05 | CONS ---
Assessment/Plan Assessment/Plan Assessment/Plan (Daily) 1. Hyponatremia due to Hypervolemic Hyponatremia in setting of acute liver failure - Na chloride tablet 2 gram PO TID - s/p hypertonic 3% saline at 30 cc/ hr x 12 hr given yesterday 2. 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 Acute hepatic failure 4. Biliary colic vs cholecystitis 5. H/o alcohol abuse 6. acute kidney injury due to Type II hepatorenal syndrome Plan: Cr bumped to 2.93- Na 121 K 5.7- will give Kayexalate 30 gram PO x 1 dose , aldactone, lasix and lisinopril has been stopped on IVF D5NS at 75 cc/hr, if Na continues to drop then we will stop Dextros cont aining IVF Abdominal US in ED showed The right kidney measures 10.8 cm. There is normal echogenicity of the right kidney. There is no solid right renal mass, hydronephrosis, or calculus. There is a benign 1 cm cyst in the upper to mid right kidney. will follow up Consultation Date/Type/Reason Admit Date/Time Nov 08, 2018 at 19:37 Initial Consult Date 11/09/18 Type of Consult NEPHROLOGY Requesting Provider: SCOTT DOLL NP Date/Time of Note DATE: 11/19/18 TIME: 11:00 24 HR Interval Summary Free Text/Dictation pt becomes oliguric, received IV albumin + lasix yesterday still not enough urine, BUN/Cr rising, pt lethargic sleepy today Exam/Review of Systems Exam Vitals Vital Signs Date Temp Pulse Resp B/P (MAP) Pulse Ox O2 O2 Flow FiO2 Time Delivery Rate 11/19/18 94 20:00 11/19/18 97.6 18 105/49 95 Nasal 15:52 (67) Cannula Intake and Output 11/19/18 11/19/18 11/20/18 1414:59 22:59 06:59 IntakeIntake Total 320 ml 2040 ml OutputOutput Total 700 ml BalanceBalance 320 ml 1340 ml Exam Constitutional: lethargic, sleepy , morbidly obese . + Jaundice Respiratory: diminished breath sounds (bilaterally at bases) Cardiovascular: nl pulses, other (s1s2) Gastrointestinal: soft, tender Musculoskeletal: muscle weakness Extremities: normal pulses 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: sleepy , lethargic Skin: other (jaundiced) Results Result Diagram: 11/19/18 0808 11/19/18 0808 Results 24hrs Laboratory Tests Test 11/19/18 08:08 White Blood Count 32.8 H Red Blood Count 1.96 #L Hemoglobin 7.1 L Hematocrit 20.7 L Mean Corpuscular Volume 105.6 H Mean Corpuscular Hemoglobin 36.2 H Mean Corpuscular Hemoglobin Concent 34.3 Red Cell Distribution Width 20.3 H Platelet Count 43 #L Mean Platelet Volume 11.3 H Immature Granulocytes % 4.600 H Neutrophils % Segmented Neutrophils % (Manual) 72 Band Neutrophils % (Manual) 15 H Lymphocytes % Lymphocytes % (Manual) 6 L Reactive Lymphocytes % (Manual) 1 H Monocytes % Monocytes % (Manual) 3 Eosinophils % Basophils % Metamyelocytes % (manual) 3 H Nucleated Red Blood Cells % 4 H Immature Granulocytes # 1.500 H Neutrophils # Neutrophils # (Manual) 25.2 H Band Neutrophils # 4.9 H Lymphocytes (Manual) 1.9 Lymphocytes # Reactive Lymphocytes # 0.3 H Monocytes # Monocytes # (Manual) 0.9 Eosinophils # Basophils # Metamyelocytes # 0.9 H Nucleated Red Blood Cells # Platelet Estimate SIG DECREASED Polychromasia 1+ Poikilocytosis 3+ Anisocytosis 3+ Macrocytosis 3+ Target Cells 2+ Sodium Level 121 L Potassium Level 5.7 H Chloride Level 90 L Carbon Dioxide Level 17 L Anion Gap 14 H Blood Urea Nitrogen 73 H Creatinine 2.93 #H Est Glomerular Filtrat Rate mL/min 23 L Glucose Level 84 Calcium Level 8.3 L Total Bilirubin 23.0 H Direct Bilirubin 19.30 *H Indirect Bilirubin 3.7 H Aspartate Amino Transf (AST/SGOT) 949 H Alanine Aminotransferase (ALT/SGPT) 603 H Alkaline Phosphatase 171 H Ammonia 15 Total Protein 4.9 L Albumin 1.9 L Globulin 3.00 Albumin/Globulin Ratio 0.63 Amylase Level 820 H Lipase 3053 H Medications Medication Current Medications IV Flush (NS 3 ml) 3 ml PER PROTOCOL IV ; Start 11/08/18 at 20:30 Docusate Sodium (Colace) 100 mg Q12H PRN PO .CONSTIPATION; Start 11/08/18 at 20:30 Bisacodyl (Dulcolax) 5 mg DAILY PRN PO .CONSTIPATION Last administered on 11/18/18at 10:46; Admin Dose 5 MG; Start 11/08/18 at 20:30 Ondansetron HCl (Zofran Inj) 4 mg Q4H PRN IV NAUSEA AND/OR VOMITING Last administered on 11/18/18 06:27; Admin Dose 4 MG; Start 11/08/18 at 20:30 Thiamine HCl (Vitamin B1) 100 mg DAILY PO Last administered on 11/19/18 09:00; Admin Dose 100 MG; Start 11/09/18 at 09:00 Rifaximin (Xifaxan) 550 mg BID PO Last administered on 11/19/18 20:40; Admin Dose 550 MG; Start 11/09/18 at 00:00 Multivitamins Therapeutic (Theragran) 1 tab DAILY PO Last administered on 11/19/18 09:00; Admin Dose 1 TAB; Start 11/09/18 at 09:00 Folic Acid (Folic Acid) 1 mg DAILY PO Last administered on 11/19/18 08:59; Admin Dose 1 MG; Start 11/09/18 at 09:00 Pantoprazole (Protonix Tab) 40 mg DAILY@06 PO Last administered on 11/19/18 04:54; Admin Dose 40 MG; Start 11/10/18 at 06:00 Sodium Chloride (Nacl) 2 gm TID PO Last administered on 11/19/18 20:40; Admin Dose 2 GM; Start 11/15/18 at 13:00 Acetaminophen (Tylenol Tab) 650 mg Q6H PRN PO MILD PAIN(1-3)OR ELEVATED TEMP Last administered on 11/18/18 10:46; Admin Dose 650 MG; Start 11/18/18 at 07:00 Oxycodone HCl (Roxicodone) 5 mg Q6H PRN PO MODERATE PAIN LEVEL 4-6 Last administered on 11/19/18 20:39; Admin Dose 5 MG; Start 11/18/18 at 11:30 Olanzapine (Zyprexa) 5 mg Q12H PRN IM agitation Last administered on 11/19/18 20:40; Admin Dose 5 MG; Start 11/18/18 at 14:30 Morphine Sulfate (morphine) 2 mg Q4H PRN IV SEVERE PAIN LEVEL 7-10 Last administered on 11/19/18 22:42; Admin Dose 2 MG; Start 11/18/18 at 14:30 Dextrose/Sodium Chloride 1,000 ml @ 75 mls/hr [id number] IV Last administered on 11/19/18at 04:53; Admin Dose 75 MLS/HR; Start 11/18/18 at 14:30 Lactulose (Lactulose Enema) 100 ml Q8 NV Last administered on 11/19/18at 21:20; Admin Dose 100 ML; Start 11/19/18 at 22:00 BUCK CARO MD Nov 20, 2018 01:05
[2018-11-20] MEDS ORDERED: ALBUMIN HUMAN 25% 100 ML IV ONE (05:00)
[2018-11-20] MEDS ORDERED: NORepinephrine 8MG/250 ML (PMX 250 ML ONE (05:13)
[2018-11-20] MEDS ORDERED: DOPamine-D5W 1.6 MG/ML 250 ML ONE (05:28)
[2018-11-20] MEDS ORDERED: SOD CHLORIDE 0.9% 1,000 ML IV ONE (05:30)
[2018-11-20] MEDS: PANTOPRAZOLE (EC) 40 MG TAB PO SCH (06:00)
[2018-11-20] MEDS: LACTULOSE ENEMA 1,000 ML BTL PR SCH (06:00)
[2018-11-20] MEDS ORDERED: NA BICARBONATE 8.4% 50 ML SYG IV ONE ×2 (06:00→09:30)
[2018-11-20] MEDS ORDERED: ATROPINE 1 MG/10 ML SYRINGE IV ONE (06:00)
[2018-11-20] MEDS: DOPamine-D5W 1.6 MG/ML 250 ML IV PRN ×2 (06:11→08:57)
[2018-11-20] MEDS: NORepinephrine 8MG/250 ML (PMX 250 ML IV SCH ×2 (06:14→09:32)
--- NOTE | 2018-11-20 06:17 | EN ---
Date/Time of Note Date/Time of Note DATE: 11/20/18 TIME: 04:30 ER Progress Note CODE BLUE NOTE Subjective: I was called out of the emergency department to the floor for a CODE BLUE event. The patient was receiving high-quality CPR and being bagged by respiratory therapy. Once at bedside, I immediately took over as the CODE BLUE leader and ran the code. Please note the history and physical exam is limited as the patient is in full cardiac arrest and is receiving CPR at this time. Objective: Vital signs reviewed Const: Unresponsive Head: Normocephalic, Atraumatic Eyes: PERRL. Scleral icterus. ENT: Normal External Ears, Nose and Mouth. Resp: No voluntary respirations. Respirations being assisted via BVM by a respiratory therapist with symmetric chest wall gallardo. Cardio: Pulseless, no heart beat. Abd: Distended. Skin: No petechiae. Significant jaundice. Back: Deferred Ext: No cyanosis, or edema Neur: Unresponsive. Eyes closed. No voluntary movements or response to pain. Nonverbal. GCS 3. Assessment: Cardiac Arrest Plan: Please see the code sheet for full details. The patient received epinephrine and bicarbonate during the code. The final results of the CODE BLUE was return of spontaneous circulation. In speaking with the patient's primary provider overnight, Dr. Scott, we both felt that there was concern of airway protection by the patient and the decision was made to intubate the patient emergently. This was completed without complication as described below. ENDOTRACHEAL INTUBATION: Performed by me. Pre-assessment performed. Pre-oxygenation performed with 100% oxygen. RSI: Performed w/o complication or hypoxic events. Medications as ordered. Blade: Mac 3 via video Larygnoscope ET Tube: 7.5 mm Depth: 23 cm at the lip Intubation confirmed by colorimetric CO2, equal breath sounds, quiet over the stomach. The primary team will reassume care of the patient. The patient will be transferred to the ICU. GUTIERREZ JOLLEY MD Nov 20, 2018 06:17
[2018-11-20] MEDS ORDERED: DEXTROSE 5%-0.9% NACL 1,000 ML IV SCH (06:30)
[2018-11-20] MEDS: MIDAZOLAM (DRIP) 50 mg/50 mL 50 ML IV PRN ×2 (06:40→14:02)
[2018-11-20] MEDS ORDERED: NA BICARBONATE 8.4% 50 ML SYG ONE (07:00)
[2018-11-20] MEDS ORDERED: DEXTROSE 50% 50 ML SYRINGE IV PRN ×2 (07:00)
[2018-11-20] MEDS ORDERED: GLUCAGON 1 MG INJ IM PRN (07:00)
[2018-11-20] MEDS ORDERED: SUCCINYLCHOLINE CHLORIDE 100 MG/5 ML SYG IV ONE (07:00)
[2018-11-20] MEDS ORDERED: GLUCOSE GEL 15 GRAM TUBE BUCCAL PRN (07:00)
[2018-11-20] MEDS ORDERED: GLUCOSE GEL 15 GRAM TUBE PO PRN ×2 (07:00)
[2018-11-20] MEDS ORDERED: ATROPINE 1 MG/10 ML SYRINGE ONE (07:00)
[2018-11-20] MEDS ORDERED: CA CHLORIDE 10% 10 ML SYRINGE ONE ×2 (07:00→08:48)
[2018-11-20] MEDS ORDERED: ETOMIDATE 20 MG INJ ONE (07:00)
[2018-11-20] MEDS ORDERED: EPINEPHrine 0.1 MG/ML SYG ONE (07:00)
[2018-11-20] MEDS ORDERED: SODIUM CHLORIDE 1 GM TAB PO SCH (09:00)
[2018-11-20] MEDS ORDERED: INSULIN ASPART [NOVOLOG] 3 ML PEN SC SCH (09:00)
[2018-11-20] MEDS: MULTIVITAMINS THERAPEUTIC TAB PO SCH (09:00)
[2018-11-20] MEDS: FOLIC ACID 1 MG TAB PO SCH (09:00)
[2018-11-20] MEDS: THIAMINE 100 MG TAB PO SCH (09:00)
[2018-11-20] MEDS: RIFAXIMIN 550 MG TAB PO SCH (09:00)
[2018-11-20] MEDS ORDERED: CA CHLORIDE 10% 10 ML SYRINGE IV ONE (09:30)
[2018-11-20] MEDS ORDERED: NA POLYST SULFON 15 GM/60 ML BTL NGT ONE (09:30)
[2018-11-20] MEDS ORDERED: CALCIUM GLUCONATE 10% 1 GM in DEXTROSE 5% 100 ML IVPB ONE (10:00)
[2018-11-20] MEDS ORDERED: SODIUM POLYSTYRENE 15 GM KIT (POWDER + SORBITOL) NGT ONE (10:00)
[2018-11-20] MEDS ORDERED: SOD CHLORIDE 0.9% 250 ML IV* ONE (10:10)
--- NOTE | 2018-11-20 10:13 | CONS ---
Assessment/Plan Assessment/Plan Hospital Course (Demo Recall) PEA cardiac arrest: In setting of hyperkalemia Hyperkalemia: K 6.8. 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 Over the past few days he has had worsening renal failure from HRS. His K this am was 6.8. He had PEA arrest with successful ROSC. No known prior cardiac disease. Family is at bedside and is deciding about dialysis. unable to obtain Past Medical History per HPI Home Meds Active Scripts Sodium Chloride (Sodium Chloride) 1,000 Mg Tablet.dee, 1 GM PO BID for 14 Days, #28 TAB Prov:SCOTT DOLL V. RESEARCH AND DEVELOPMENT DIRECTOR 11/03/18 Pantoprazole* (Protonix*) 40 Mg Tablet.dr, 40 MG PO DAILY, #30 TAB Prov:SCOTT DOLL V. RESEARCH AND DEVELOPMENT DIRECTOR 11/03/18 Prednisone* (Prednisone*) 20 Mg Tab, 40 MG PO DAILY for 28 Days, TAB Prov:SCOTT DOLL V. RESEARCH AND DEVELOPMENT DIRECTOR 11/03/18 Thiamine* (Vitamin B-1*) 100 Mg Tablet, 100 MG PO DAILY, #30 TAB Prov:SCOTT DOLL V. RESEARCH AND DEVELOPMENT DIRECTOR 11/03/18 Lisinopril* (Lisinopril*) 10 Mg Tablet, 10 MG PO BID, #60 TAB Prov:SCOTT DOLL V. RESEARCH AND DEVELOPMENT DIRECTOR 11/03/18 Spironolactone* (Aldactone*) 25 Mg Tablet, 50 MG PO DAILY, #30 TAB Prov:SCOTT DOLL V. RESEARCH AND DEVELOPMENT DIRECTOR 11/03/18 Reported Medications Naltrexone Hcl (Trexan) 50 Mg Tab, 50 MG PO DAILY, TAB 11/08/18 Paroxetine Hcl* (Paxil*) 30 Mg Tablet, 30 MG PO HS, TAB 10/26/18 Medications Current Medications IV Flush (NS 3 ml) 3 ml PER PROTOCOL IV ; Start 11/08/18 at 20:30 Docusate Sodium (Colace) 100 mg Q12H PRN PO .CONSTIPATION; Start 11/08/18 at 20:30 Bisacodyl (Dulcolax) 5 mg DAILY PRN PO .CONSTIPATION Last administered on 11/18/18 10:46; Admin Dose 5 MG; Start 11/08/18 at 20:30 Ondansetron HCl (Zofran Inj) 4 mg Q4H PRN IV NAUSEA AND/OR VOMITING Last administered on 11/18/18 06:27; Admin Dose 4 MG; Start 11/08/18 at 20:30 Thiamine HCl (Vitamin B1) 100 mg DAILY PO Last administered on 11/19/18 09:00; Admin Dose 100 MG; Start 11/09/18 at 09:00 Rifaximin (Xifaxan) 550 mg BID PO Last administered on 11/19/18 20:40; Admin Dose 550 MG; Start 11/09/18 at 00:00 Multivitamins Therapeutic (Theragran) 1 tab DAILY PO Last administered on 11/19/18 09:00; Admin Dose 1 TAB; Start 11/09/18 at 09:00 Folic Acid (Folic Acid) 1 mg DAILY PO Last administered on 11/19/18 08:59; Admin Dose 1 MG; Start 11/09/18 at 09:00 Pantoprazole (Protonix Tab) 40 mg DAILY@06 PO Last administered on 11/19/18 04:54; Admin Dose 40 MG; Start 11/10/18 at 06:00 Acetaminophen (Tylenol Tab) 650 mg Q6H PRN PO MILD PAIN(1-3)OR ELEVATED TEMP Last administered on 11/18/18 10:46; Admin Dose 650 MG; Start 11/18/18 at 07:00 Oxycodone HCl (Roxicodone) 5 mg Q6H PRN PO MODERATE PAIN LEVEL 4-6 Last administered on 11/19/18 20:39; Admin Dose 5 MG; Start 11/18/18 at 11:30 Olanzapine (Zyprexa) 5 mg Q12H PRN IM agitation Last administered on 11/19/18at 20:40; Admin Dose 5 MG; Start 11/18/18 at 14:30 Morphine Sulfate (morphine) 2 mg Q4H PRN IV SEVERE PAIN LEVEL 7-10 Last administered on 11/19/18at 22:42; Admin Dose 2 MG; Start 11/18/18 at 14:30 Lactulose (Lactulose Enema) 100 ml Q8 [place] Last administered on 11/19/18at 21:20; Admin Dose 100 ML; Start 11/19/18 at 22:00 Sodium Chloride (Nacl) 1 gm TID PO ; Start 11/20/18 at 09:00 Midazolam HCl 50 ml @ 1 mls/hr TITRATE PRN IV AGITATION Last administered on 11/20/18at 06:40; Admin Dose 2 MLS/HR; Start 11/20/18 at 05:00 Norepinephrine 250 ml @ 1.875 mls/ hr TITRATE IV Last administered on 11/20/18at 09:32; Admin Dose 56.25 MLS/HR; Start 11/20/18 at 05:30 Dopamine HCl/ Dextrose 250 ml @ 8.565 mls/ hr TITRATE PRN IV BLOOD PRESSURE SUPPORT Last administered on 11/20/18at 08:57; Admin Dose 85.65 MLS/HR; Start 11/20/18 at 05:30 Dextrose/Sodium Chloride 1,000 ml @ 75 mls/hr [id number] IV Last administered on 11/20/18at 06:41; Admin Dose 75 MLS/HR; Start 11/20/18 at 06:30 Insulin Aspart (Novolog Insulin Pen) NOVOLOG *MILD* ALGORI... Q4 SC ; Start 11/20/18 at 09:00 Miscellaneous Information 1 ea NOTE XX ; Start 11/20/18 at 07:00 Glucose (Glutose) 15 gm Q15M PRN PO DECREASED GLUCOSE; Start 11/20/18 at 07:00 Glucose (Glutose) 22.5 gm Q15M PRN PO DECREASED GLUCOSE; Start 11/20/18 at 07:00 Dextrose (D50w Syringe) 25 ml Q15M PRN IV DECREASED GLUCOSE; Start 11/20/18 at 07:00 Dextrose (D50w Syringe) 50 ml Q15M PRN IV DECREASED GLUCOSE; Start 11/20/18 at 07:00 Glucagon (Glucagen) 1 mg Q15M PRN IM DECREASED GLUCOSE; Start 11/20/18 at 07:00 Glucose (Glutose) 15 gm Q15M PRN BUCCAL DECREASED GLUCOSE; Start 11/20/18 at 07:00 Sodium Polystyrene Sulfonate (Kayexelate 15 Gm Kit (Powder+Sorbitol)) 60 gm ONCE ONCE NGT ; Start 11/20/18 at 10:00; Stop 11/20/18 at 10:01 Allergies: Coded Allergies: No Known Allergy (Unverified , 11/08/18) Past Surgical History Past Surgical Hx: no surgical history Social History Alcohol Use: sober Smoking Status: Never smoker Drug Use: none Exam/Review of Systems Vital Signs Vitals Vital Signs Date Temp Pulse Resp B/P (MAP) Pulse Ox O2 O2 Flow FiO2 Time Delivery Rate 11/20/18 117 17 106/57 94 07:45 (73) 11/20/18 Mechanical 07:00 Ventilator 11/20/18 98.2 05:07 11/20/18 100 05:00 Intake and Output 11/19/18 11/19/18 11/20/18 1515:00 23:00 07:00 IntakeIntake Total 320 ml 2040 ml 1736.618 ml OutputOutput Total 700 ml 340 ml BalanceBalance 320 ml 1340 ml 1396.618 ml Exam Constitutional: No alert, No oriented ENMT: intubated Neck: No jvd Respiratory: diminished breath sounds; No clear to auscultation Cardiovascular: regular rate and rhythm, edema (1+); No systolic murmur Gastrointestinal: soft, distended Musculoskeletal: No nl extremities to inspection 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: No nl mental status, No nl speech Labs Result Diagram: 11/20/18 0526 11/20/18 0526 Results 24hrs Laboratory Tests Test 11/20/18 04:23 11/20/18 05:15 11/20/18 05:26 11/20/18 07:00 Bedside Glucose 141 Blood Gas Blood arterial Blood Specimen arterial Source Arterial Blood 11/20/2018 5:18: 11/20/2018 8:14 Date Drawn 16 AM :07 AM Arterial Blood 6.991 *L 7.036 *L pH (Temp corrected ) Arterial Blood 47.8 H 50.5 H pCO2 (Temp correct) Arterial Blood 77.6 L 72.0 L pO2 (Temp corrected ) Arterial Blood 11.3 L 13.2 L HCO3 Arterial Blood -19.0 L -16.6 L Base Excess Arterial Blood 86.9 L 86.4 L Oxygen Saturati on Gian Test ACCEPTAB ACCEPTAB Arterial Blood Left Radial Right Gas Brachial Puncture Site Arterial 2.5 2.4 Blood Carboxyhe moglobin Arterial Blood 0.9 0.7 Methemoglobin Blood Gas A-a 587.6 H 590.5 H O2 Differential Oxyhemoglobin 83.9 L 83.7 L Percent Blood Gas 37.0 37.0 Temperature Blood Gas 18.0 22.0 Respiration Rate Blood Gas 19 23 Actual Respiration Rat e Blood Gas VENT - AC VENT - AC Modality FiO2 100.0 100.0 Blood Gas Tidal 500.0 500.0 Volume Blood Gas Low 5.0 5.0 PEEP Setting Blood Gas D GORDO MOLINA LBRAADEBAYO R.N. Critical Value Read Back Blood Gas D RACHELLE [employer]ST[employer] [facility] Notified Whom Blood Gas 11/20/2018 5:23: 11/20/2018 8:18 Notified Time 50 AM :29 AM White Blood 26.2 #H Count Red Blood Count 2.06 L Hemoglobin 7.2 L Hematocrit 23.0 L Mean 111.7 H Corpuscular Volume Mean 35.0 H Corpuscular Hemoglobin Mean 31.3 L Corpuscular Hemoglobin Conc ent Red Cell 22.7 H Distribution Width Platelet Count 36 L Mean Platelet 12.7 H Volume Immature 10.000 H Granulocytes % Neutrophils % Segmented 61 Neutrophils % (Manual) Band 24 H Neutrophils % (Manual) Lymphocytes % Lymphocytes % 6 L (Manual) Reactive 2 H Lymphocytes % (Manual) Monocytes % Monocytes % 2 (Manual) Eosinophils % Eosinophils % 1 (Manual) Basophils % Myelocytes % 2 H (Manual) Promyelocytes % 2 H (Manual) Nucleated Red 6 H Blood Cells % Immature 2.630 H Granulocytes # Neutrophils # Neutrophils # 17.6 H (Manual) Band 6.2 H Neutrophils # Lymphocytes 1.5 (Manual) Lymphocytes # Reactive 0.5 H Lymphocytes # Monocytes # Monocytes # 0.5 (Manual) Eosinophils # Basophils # Myelocytes # 0.5 H Promyelocytes # 0.5 H Nucleated Red Blood Cells # Platelet SIG DECREASED Estimate Polychromasia 3+ Poikilocytosis 3+ Anisocytosis 2+ Macrocytosis 1+ Ovalocytes 1+ Sodium Level 124 L Potassium Level 6.8 *H Chloride Level 92 L Carbon Dioxide 12 L Level Anion Gap 20 H Blood Urea 69 H Nitrogen Creatinine 4.24 #H Est Glomerular 15 L Filtrat Rate mL/min Glucose Level 87 Calcium Level 7.7 L Phosphorus 11.7 H Level Magnesium Level 3.0 H Total Bilirubin 21.7 H Direct 18.80 *H Bilirubin Indirect 2.9 H Bilirubin Aspartate Amino Transf (AST/SGO T) Alanine 1217 H Aminotransferas e (ALT/SGPT) Alkaline 168 H Phosphatase Ammonia 20 Total Protein 4.8 L Albumin 2.1 L Globulin 2.70 Albumin/Globuli 0.77 n Ratio Lipase 1681 H Medications Medications Current Medications IV Flush (NS 3 ml) 3 ml PER PROTOCOL IV ; Start 11/08/18 at 20:30 Docusate Sodium (Colace) 100 mg Q12H PRN PO .CONSTIPATION; Start 11/08/18 at 20:30 Bisacodyl (Dulcolax) 5 mg DAILY PRN PO .CONSTIPATION Last administered on 11/18/18 10:46; Admin Dose 5 MG; Start 11/08/18 at 20:30 Ondansetron HCl (Zofran Inj) 4 mg Q4H PRN IV NAUSEA AND/OR VOMITING Last administered on 11/18/18 06:27; Admin Dose 4 MG; Start 11/08/18 at 20:30 Thiamine HCl (Vitamin B1) 100 mg DAILY PO Last administered on 11/19/18 09:00; Admin Dose 100 MG; Start 11/09/18 at 09:00 Rifaximin (Xifaxan) 550 mg BID PO Last administered on 11/19/18 20:40; Admin Dose 550 MG; Start 11/09/18 at 00:00 Multivitamins Therapeutic (Theragran) 1 tab DAILY PO Last administered on 11/19/18 09:00; Admin Dose 1 TAB; Start 11/09/18 at 09:00 Folic Acid (Folic Acid) 1 mg DAILY PO Last administered on 11/19/18 08:59; Admin Dose 1 MG; Start 11/09/18 at 09:00 Pantoprazole (Protonix Tab) 40 mg DAILY@06 PO Last administered on 11/19/18 04:54; Admin Dose 40 MG; Start 11/10/18 at 06:00 Acetaminophen (Tylenol Tab) 650 mg Q6H PRN PO MILD PAIN(1-3)OR ELEVATED TEMP Last administered on 11/18/18 10:46; Admin Dose 650 MG; Start 11/18/18 at 07:00 Oxycodone HCl (Roxicodone) 5 mg Q6H PRN PO MODERATE PAIN LEVEL 4-6 Last administered on 11/19/18 20:39; Admin Dose 5 MG; Start 11/18/18 at 11:30 Olanzapine (Zyprexa) 5 mg Q12H PRN IM agitation Last administered on 11/19/18 20:40; Admin Dose 5 MG; Start 11/18/18 at 14:30 Morphine Sulfate (morphine) 2 mg Q4H PRN IV SEVERE PAIN LEVEL 7-10 Last administered on 11/19/18 22:42; Admin Dose 2 MG; Start 11/18/18 at 14:30 Lactulose (Lactulose Enema) 100 ml Q8 [place] Last administered on 11/19/18 21:20; Admin Dose 100 ML; Start 11/19/18 at 22:00 Sodium Chloride (Nacl) 1 gm TID PO ; Start 11/20/18 at 09:00 Midazolam HCl 50 ml @ 1 mls/hr TITRATE PRN IV AGITATION Last administered on 11/20/18 06:40; Admin Dose 2 MLS/HR; Start 11/20/18 at 05:00 Norepinephrine 250 ml @ 1.875 mls/ hr TITRATE IV Last administered on 11/20/18 09:32; Admin Dose 56.25 MLS/HR; Start 11/20/18 at 05:30 Dopamine HCl/ Dextrose 250 ml @ 8.565 mls/ hr TITRATE PRN IV BLOOD PRESSURE SUPPORT Last administered on 11/20/18 08:57; Admin Dose 85.65 MLS/HR; Start 11/20/18 at 05:30 Dextrose/Sodium Chloride 1,000 ml @ 75 mls/hr [id number] IV Last administered on 11/20/18 06:41; Admin Dose 75 MLS/HR; Start 11/20/18 at 06:30 Insulin Aspart (Novolog Insulin Pen) NOVOLOG *MILD* ALGORI... Q4 SC ; Start 11/20/18 at 09:00 Miscellaneous Information 1 ea NOTE XX ; Start 11/20/18 at 07:00 Glucose (Glutose) 15 gm Q15M PRN PO DECREASED GLUCOSE; Start 11/20/18 at 07:00 Glucose (Glutose) 22.5 gm Q15M PRN PO DECREASED GLUCOSE; Start 11/20/18 at 07:00 Dextrose (D50w Syringe) 25 ml Q15M PRN IV DECREASED GLUCOSE; Start 11/20/18 at 07:00 Dextrose (D50w Syringe) 50 ml Q15M PRN IV DECREASED GLUCOSE; Start 11/20/18 at 07:00 Glucagon (Glucagen) 1 mg Q15M PRN IM DECREASED GLUCOSE; Start 11/20/18 at 07:00 Glucose (Glutose) 15 gm Q15M PRN BUCCAL DECREASED GLUCOSE; Start 11/20/18 at 07:00 Sodium Polystyrene Sulfonate (Kayexelate 15 Gm Kit (Powder+Sorbitol)) 60 gm ONCE ONCE NGT ; Start 11/20/18 at 10:00; Stop 11/20/18 at 10:01 FERNY GHOSH Nov 20, 2018 10:12
[2018-11-20] MEDS ORDERED: PHENYLephrine 80 MG in DEXTROSE 5% 242 ML IV SCH (10:30)
[2018-11-20] MEDS ORDERED: DOPAMINE IV SCH (10:30)
[2018-11-20] MEDS ORDERED: D5W IV SCH (10:30)
--- NOTE | 2018-11-20 10:42 | CONS ---
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 To me they had obviously discuss this amongst themselves earlier. However over the next 24 hours they like current care in intensive care unit. I will change CODE STATUS to DO NOT RESUSCITATE Patient's and 3 children were in attendance, and his sister and customer support executive who is also [id number] for family. Patient's had a clear idea of his seriousness of his underlying medical condition, she made it very clear she does not want him to suffer therefore will reconsider his level of care including comfort measures within the next 24 hours especially since he is intubated I did tell her that there is some changes on his examination that indicate he may have sustained some loss of oxygen to his brain during a cardiac arrest and that he is requiring multiple medication to keep his blood pressure up at this time. There hopes once again as he does not suffer and would not want him to have any interventions that would leave him in a vegetative condition. Culturally they seem like a very close family and they were all in agreement with the 's decision. I did explain to her that his prognosis is extremely poor. There were no psychosocial spiritual or other cultural issues that need to be addressed. Patient's is a decision-maker but she discusses all decisions with her children. If he does not improve or if he continues to require high dose of pressors and is maxed out I believe family will decide on comfort measures tomorrow. Consultation Date/Type/Reason Admit Date/Time Nov 08, 2018 at 19:37 Date/Time of Note DATE: 11/20/18 TIME: 10:41 Past Medical History Medical History: high cholesterol, hypertension, other Home Meds Active Scripts Sodium Chloride (Sodium Chloride) 1,000 Mg Tablet.dee, 1 GM PO BID for 14 Days, #28 TAB Prov:SCOTT DOLL V. B2B ACCOUNT EXECUTIVE 11/03/18 Pantoprazole* (Protonix*) 40 Mg Tablet.dr, 40 MG PO DAILY, #30 TAB Prov:SCOTT DOLL V. B2B ACCOUNT EXECUTIVE 11/03/18 Prednisone* (Prednisone*) 20 Mg Tab, 40 MG PO DAILY for 28 Days, TAB Prov:DOLL,SCOTT V. B2B ACCOUNT EXECUTIVE 11/03/18 Thiamine* (Vitamin B-1*) 100 Mg Tablet, 100 MG PO DAILY, #30 TAB Prov:DOLL,SCOTT V. B2B ACCOUNT EXECUTIVE 11/03/18 Lisinopril* (Lisinopril*) 10 Mg Tablet, 10 MG PO BID, #60 TAB Prov:DOLL,SCOTT V. B2B ACCOUNT EXECUTIVE 11/03/18 Spironolactone* (Aldactone*) 25 Mg Tablet, 50 MG PO DAILY, #30 TAB Prov:DOLL,SCOTT V. B2B ACCOUNT EXECUTIVE 11/03/18 Reported Medications Naltrexone Hcl (Trexan) 50 Mg Tab, 50 MG PO DAILY, TAB 11/08/18 Paroxetine Hcl* (Paxil*) 30 Mg Tablet, 30 MG PO HS, TAB 10/26/18 Medications Current Medications IV Flush (NS 3 ml) 3 ml PER PROTOCOL IV ; Start 11/08/18 at 20:30 Docusate Sodium (Colace) 100 mg Q12H PRN PO .CONSTIPATION; Start 11/08/18 at 20:30 Bisacodyl (Dulcolax) 5 mg DAILY PRN PO .CONSTIPATION Last administered on 11/18/18at 10:46; Admin Dose 5 MG; Start 11/08/18 at 20:30 Ondansetron HCl (Zofran Inj) 4 mg Q4H PRN IV NAUSEA AND/OR VOMITING Last administered on 11/18/18at 06:27; Admin Dose 4 MG; Start 11/08/18 at 20:30 Thiamine HCl (Vitamin B1) 100 mg DAILY PO Last administered on 11/19/18at 09:00; Admin Dose 100 MG; Start 11/09/18 at 09:00 Rifaximin (Xifaxan) 550 mg BID PO Last administered on 11/19/18at 20:40; Admin Dose 550 MG; Start 11/09/18 at 00:00 Multivitamins Therapeutic (Theragran) 1 tab DAILY PO Last administered on 11/19/18at 09:00; Admin Dose 1 TAB; Start 11/09/18 at 09:00 Folic Acid (Folic Acid) 1 mg DAILY PO Last administered on 11/19/18at 08:59; Admin Dose 1 MG; Start 11/09/18 at 09:00 Pantoprazole (Protonix Tab) 40 mg DAILY@06 PO Last administered on 11/19/18at 04:54; Admin Dose 40 MG; Start 11/10/18 at 06:00 Acetaminophen (Tylenol Tab) 650 mg Q6H PRN PO MILD PAIN(1-3)OR ELEVATED TEMP Last administered on 11/18/18at 10:46; Admin Dose 650 MG; Start 11/18/18 at 07:00 Oxycodone HCl (Roxicodone) 5 mg Q6H PRN PO MODERATE PAIN LEVEL 4-6 Last administered on 11/19/18at 20:39; Admin Dose 5 MG; Start 11/18/18 at 11:30 Olanzapine (Zyprexa) 5 mg Q12H PRN IM agitation Last administered on 11/19/18at 20:40; Admin Dose 5 MG; Start 11/18/18 at 14:30 Morphine Sulfate (morphine) 2 mg Q4H PRN IV SEVERE PAIN LEVEL 7-10 Last administered on 11/19/18at 22:42; Admin Dose 2 MG; Start 11/18/18 at 14:30 Lactulose (Lactulose Enema) 100 ml Q8 NH Last administered on 11/19/18at 21:20; Admin Dose 100 ML; Start 11/19/18 at 22:00 Sodium Chloride (Nacl) 1 gm TID PO ; Start 11/20/18 at 09:00 Midazolam HCl 50 ml @ 1 mls/hr TITRATE PRN IV AGITATION Last administered on 11/20/18at 06:40; Admin Dose 2 MLS/HR; Start 11/20/18 at 05:00 Norepinephrine 250 ml @ 1.875 mls/ hr TITRATE IV Last administered on 11/20/18at 09:32; Admin Dose 56.25 MLS/HR; Start 11/20/18 at 05:30; Stop 11/20/18 at 11:00 Insulin Aspart (Novolog Insulin Pen) NOVOLOG *MILD* ALGORI... Q4 SC ; Start 11/20/18 at 09:00 Miscellaneous Information 1 ea NOTE XX ; Start 11/20/18 at 07:00 Glucose (Glutose) 15 gm Q15M PRN PO DECREASED GLUCOSE; Start 11/20/18 at 07:00 Glucose (Glutose) 22.5 gm Q15M PRN PO DECREASED GLUCOSE; Start 11/20/18 at 07:00 Dextrose (D50w Syringe) 25 ml Q15M PRN IV DECREASED GLUCOSE; Start 11/20/18 at 07:00 Dextrose (D50w Syringe) 50 ml Q15M PRN IV DECREASED GLUCOSE; Start 11/20/18 at 07:00 Glucagon (Glucagen) 1 mg Q15M PRN IM DECREASED GLUCOSE; Start 11/20/18 at 07:00 Glucose (Glutose) 15 gm Q15M PRN BUCCAL DECREASED GLUCOSE; Start 11/20/18 at 07:00 Phenylephrine HCl 80 mg/Dextrose 250 ml @ 18.75 mls/ hr TITRATE IV ; Start 11/20/18 at 10:30 Miscellaneous Information (* Miscellaneous Pharmacy Order) QUAD CONCENTRATE ALL DRIPS ONCE XX ; Start 11/20/18 at 10:30 Sodium Bicarbonate 150 meq/Dextrose 1,000 ml @ 80 mls/hr [id number] IV ; Start 11/20/18 at 11:00 Norepinephrine 32 mg/Dextrose 250 ml @ 0.47 mls/hr TITRATE IV ; Start 11/20/18 at 11:00 Dopamine HCl 800 mg/Dextrose 250 ml @ 2.14 mls/hr TITRATE IV ; Start 11/20/18 at 10:30 Allergies: Coded Allergies: No Known Allergy (Unverified , 11/08/18) Past Surgical History Past Surgical Hx: no surgical history Social History Alcohol Use: sober Smoking Status: Never smoker Drug Use: none Exam/Review of Systems Exam Vitals Vital Signs Date Temp Pulse Resp B/P (MAP) Pulse Ox O2 O2 Flow FiO2 Time Delivery Rate 11/20/18 117 17 106/57 94 07:45 (73) 11/20/18 Mechanical 07:00 Ventilator 11/20/18 98.2 05:07 11/20/18 100 05:00 Intake and Output 11/19/18 11/19/18 11/20/18 1515:00 23:00 07:00 IntakeIntake Total 320 ml 2040 ml 1736.618 ml OutputOutput Total 700 ml 340 ml BalanceBalance 320 ml 1340 ml 1396.618 ml Results Result Diagram: 11/20/18 0526 11/20/18 05 Results 24hrs Laboratory Tests Test 11/20/18 04:23 11/20/18 05:15 11/20/18 05:26 11/20/18 07:00 Bedside Glucose 141 Blood Gas Blood arterial Blood Specimen arterial Source Arterial Blood 11/20/2018 5:18: 11/20/2018 8:14 Date Drawn 16 AM :07 AM Arterial Blood 6.991 *L 7.036 *L pH (Temp corrected ) Arterial Blood 47.8 H 50.5 H pCO2 (Temp correct) Arterial Blood 77.6 L 72.0 L pO2 (Temp corrected ) Arterial Blood 11.3 L 13.2 L HCO3 Arterial Blood -19.0 L -16.6 L Base Excess Arterial Blood 86.9 L 86.4 L Oxygen Saturati on Gian Test ACCEPTAB ACCEPTAB Arterial Blood Left Radial Right Gas Brachial Puncture Site Arterial 2.5 2.4 Blood Carboxyhe moglobin Arterial Blood 0.9 0.7 Methemoglobin Blood Gas A-a 587.6 H 590.5 H O2 Differential Oxyhemoglobin 83.9 L 83.7 L Percent Blood Gas 37.0 37.0 Temperature Blood Gas 18.0 22.0 Respiration Rate Blood Gas 19 23 Actual Respiration Rat e Blood Gas VENT - AC VENT - AC Modality FiO2 100.0 100.0 Blood Gas Tidal 500.0 500.0 Volume Blood Gas Low 5.0 5.0 PEEP Setting Blood Gas D GORDO QUINTERO R.NVivian Critical Value Read Back Blood Gas Saji BUSH RCP [facility] Notified Whom Blood Gas 11/20/2018 5:23: 11/20/2018 8:18 Notified Time 50 AM :29 AM White Blood 26.2 #H Count Red Blood Count 2.06 L Hemoglobin 7.2 L Hematocrit 23.0 L Mean 111.7 H Corpuscular Volume Mean 35.0 H Corpuscular Hemoglobin Mean 31.3 L Corpuscular Hemoglobin Conc ent Red Cell 22.7 H Distribution Width Platelet Count 36 L Mean Platelet 12.7 H Volume Immature 10.000 H Granulocytes % Neutrophils % Segmented 61 Neutrophils % (Manual) Band 24 H Neutrophils % (Manual) Lymphocytes % Lymphocytes % 6 L (Manual) Reactive 2 H Lymphocytes % (Manual) Monocytes % Monocytes % 2 (Manual) Eosinophils % Eosinophils % 1 (Manual) Basophils % Myelocytes % 2 H (Manual) Promyelocytes % 2 H (Manual) Nucleated Red 6 H Blood Cells % Immature 2.630 H Granulocytes # Neutrophils # Neutrophils # 17.6 H (Manual) Band 6.2 H Neutrophils # Lymphocytes 1.5 (Manual) Lymphocytes # Reactive 0.5 H Lymphocytes # Monocytes # Monocytes # 0.5 (Manual) Eosinophils # Basophils # Myelocytes # 0.5 H Promyelocytes # 0.5 H Nucleated Red Blood Cells # Platelet SIG DECREASED Estimate Polychromasia 3+ Poikilocytosis 3+ Anisocytosis 2+ Macrocytosis 1+ Ovalocytes 1+ Sodium Level 124 L Potassium Level 6.8 *H Chloride Level 92 L Carbon Dioxide 12 L Level Anion Gap 20 H Blood Urea 69 H Nitrogen Creatinine 4.24 #H Est Glomerular 15 L Filtrat Rate mL/min Glucose Level 87 Calcium Level 7.7 L Phosphorus 11.7 H Level Magnesium Level 3.0 H Total Bilirubin 21.7 H Direct 18.80 *H Bilirubin Indirect 2.9 H Bilirubin Aspartate Amino Transf (AST/SGO T) Alanine 1217 H Aminotransferas e (ALT/SGPT) Alkaline 168 H Phosphatase Ammonia 20 Total Protein 4.8 L Albumin 2.1 L Globulin 2.70 Albumin/Globuli 0.77 n Ratio Lipase 1681 H Medications Medication Current Medications IV Flush (NS 3 ml) 3 ml PER PROTOCOL IV ; Start 11/08/18 at 20:30 Docusate Sodium (Colace) 100 mg Q12H PRN PO .CONSTIPATION; Start 11/08/18 at 20:30 Bisacodyl (Dulcolax) 5 mg DAILY PRN PO .CONSTIPATION Last administered on 11/18/18at 10:46; Admin Dose 5 MG; Start 11/08/18 at 20:30 Ondansetron HCl (Zofran Inj) 4 mg Q4H PRN IV NAUSEA AND/OR VOMITING Last administered on 11/18/18at 06:27; Admin Dose 4 MG; Start 11/08/18 at 20:30 Thiamine HCl (Vitamin B1) 100 mg DAILY PO Last administered on 11/19/18at 09:00; Admin Dose 100 MG; Start 11/09/18 at 09:00 Rifaximin (Xifaxan) 550 mg BID PO Last administered on 11/19/18at 20:40; Admin Dose 550 MG; Start 11/09/18 at 00:00 Multivitamins Therapeutic (Theragran) 1 tab DAILY PO Last administered on 11/19/18 09:00; Admin Dose 1 TAB; Start 11/09/18 at 09:00 Folic Acid (Folic Acid) 1 mg DAILY PO Last administered on 11/19/18 08:59; Admin Dose 1 MG; Start 11/09/18 at 09:00 Pantoprazole (Protonix Tab) 40 mg DAILY@06 PO Last administered on 11/19/18 04:54; Admin Dose 40 MG; Start 11/10/18 at 06:00 Acetaminophen (Tylenol Tab) 650 mg Q6H PRN PO MILD PAIN(1-3)OR ELEVATED TEMP Last administered on 11/18/18 10:46; Admin Dose 650 MG; Start 11/18/18 at 07:00 Oxycodone HCl (Roxicodone) 5 mg Q6H PRN PO MODERATE PAIN LEVEL 4-6 Last administered on 11/19/18 20:39; Admin Dose 5 MG; Start 11/18/18 at 11:30 Olanzapine (Zyprexa) 5 mg Q12H PRN IM agitation Last administered on 11/19/18 20:40; Admin Dose 5 MG; Start 11/18/18 at 14:30 Morphine Sulfate (morphine) 2 mg Q4H PRN IV SEVERE PAIN LEVEL 7-10 Last administered on 11/19/18 22:42; Admin Dose 2 MG; Start 11/18/18 at 14:30 Lactulose (Lactulose Enema) 100 ml Q8 NH Last administered on 11/19/18 21:20; Admin Dose 100 ML; Start 11/19/18 at 22:00 Sodium Chloride (Nacl) 1 gm TID PO ; Start 11/20/18 at 09:00 Midazolam HCl 50 ml @ 1 mls/hr TITRATE PRN IV AGITATION Last administered on 11/20/18 06:40; Admin Dose 2 MLS/HR; Start 11/20/18 at 05:00 Norepinephrine 250 ml @ 1.875 mls/ hr TITRATE IV Last administered on 11/20/18 09:32; Admin Dose 56.25 MLS/HR; Start 11/20/18 at 05:30; Stop 11/20/18 at 11:00 Insulin Aspart (Novolog Insulin Pen) NOVOLOG *MILD* ALGORI... Q4 SC ; Start 11/20/18 at 09:00 Miscellaneous Information 1 ea NOTE XX ; Start 11/20/18 at 07:00 Glucose (Glutose) 15 gm Q15M PRN PO DECREASED GLUCOSE; Start 11/20/18 at 07:00 Glucose (Glutose) 22.5 gm Q15M PRN PO DECREASED GLUCOSE; Start 11/20/18 at 07:00 Dextrose (D50w Syringe) 25 ml Q15M PRN IV DECREASED GLUCOSE; Start 11/20/18 at 07:00 Dextrose (D50w Syringe) 50 ml Q15M PRN IV DECREASED GLUCOSE; Start 11/20/18 at 07:00 Glucagon (Glucagen) 1 mg Q15M PRN IM DECREASED GLUCOSE; Start 11/20/18 at 07:00 Glucose (Glutose) 15 gm Q15M PRN BUCCAL DECREASED GLUCOSE; Start 11/20/18 at 07:00 Phenylephrine HCl 80 mg/Dextrose 250 ml @ 18.75 mls/ hr TITRATE IV ; Start 11/20/18 at 10:30 Miscellaneous Information (* Miscellaneous Pharmacy Order) QUAD CONCENTRATE ALL DRIPS ONCE XX ; Start 11/20/18 at 10:30 Sodium Bicarbonate 150 meq/Dextrose 1,000 ml @ 80 mls/hr [id number] IV ; Start 11/20/18 at 11:00 Norepinephrine 32 mg/Dextrose 250 ml @ 0.47 mls/hr TITRATE IV ; Start 11/20/18 at 11:00 Dopamine HCl 800 mg/Dextrose 250 ml @ 2.14 mls/hr TITRATE IV ; Start 11/20/18 at 10:30 [place] Nov 20, 2018 10:42
[2018-11-20] MEDS ORDERED: NOREPINEPHRINE 32 MG in DEXTROSE 5% 250 ML IV SCH (11:00)
[2018-11-20] MEDS ORDERED: SODIUM BICARBONATE (IV ADD) 150 MEQ in DEXTROSE 5% 1,000 ML IV SCH (11:00)
--- NOTE | 2018-11-20 12:15 | PN ---
Date/Time of Note Date/Time of Note DATE: 11/20/18 TIME: 12:11 Assessment/Plan VTE Prophylaxis Risk score (from [facility] [place])>0 risk: 5 SCD applied (from [facility]): Yes Pharmacological prophylaxis: NA/contraindicated Pharm contraindication: liver dx Assessment/Plan Hospital Course 1. Cardiopulmonary arrest secondary to end-stage liver disease and hyperkalemia Patient is status post ACLS with return of circulation Cardiology consultation obtained Palliative care consultation appreciated, patient is now a DNR with no plans for dialysis Kayexalate for hyperkalemia 2. End-stage liver disease with hepatic encephalopathy and hepatorenal syndrome Etiology secondary to alcohol abuse Patient now DNR No dialysis per palliative care discussion with family 3. Acute pancreatitis secondary to alcohol N.p.o. IV fluids 4. UTI status post treatment 5. Morbid obesity Prophylaxis: SCDs DC planning: Poor prognosis Result Diagram: 11/20/18 0526 11/20/18 1046 Results 24hrs Laboratory Tests Test 11/20/18 04:23 11/20/18 05:15 11/20/18 05:26 11/20/18 07:00 Bedside Glucose 141 Blood Gas Blood arterial Blood Specimen arterial Source Arterial Blood 11/20/2018 5:18: 11/20/2018 8:14 Date Drawn 16 AM :07 AM Arterial Blood 6.991 *L 7.036 *L pH (Temp corrected ) Arterial Blood 47.8 H 50.5 H pCO2 (Temp correct) Arterial Blood 77.6 L 72.0 L pO2 (Temp corrected ) Arterial Blood 11.3 L 13.2 L HCO3 Arterial Blood -19.0 L -16.6 L Base Excess Arterial Blood 86.9 L 86.4 L Oxygen Saturati on Gian Test ACCEPTAB ACCEPTAB Arterial Blood Left Radial Right Gas Brachial Puncture Site Arterial 2.5 2.4 Blood Carboxyhe moglobin Arterial Blood 0.9 0.7 Methemoglobin Blood Gas A-a 587.6 H 590.5 H O2 Differential Oxyhemoglobin 83.9 L 83.7 L Percent Blood Gas 37.0 37.0 Temperature Blood Gas 18.0 22.0 Respiration Rate Blood Gas 19 23 Actual Respiration Rat e Blood Gas VENT - AC VENT - AC Modality FiO2 100.0 100.0 Blood Gas Tidal 500.0 500.0 Volume Blood Gas Low 5.0 5.0 PEEP Setting Blood Gas D GORDO QUINTERO R.N. Critical Value Read Back Blood Gas D [employer]AC[employer] Notified Whom Blood Gas 11/20/2018 5:23: 11/20/2018 8:18 Notified Time 50 AM :29 AM White Blood 26.2 #H Count Red Blood Count 2.06 L Hemoglobin 7.2 L Hematocrit 23.0 L Mean 111.7 H Corpuscular Volume Mean 35.0 H Corpuscular Hemoglobin Mean 31.3 L Corpuscular Hemoglobin Conc ent Red Cell 22.7 H Distribution Width Platelet Count 36 L Mean Platelet 12.7 H Volume Immature 10.000 H Granulocytes % Neutrophils % Segmented 61 Neutrophils % (Manual) Band 24 H Neutrophils % (Manual) Lymphocytes % Lymphocytes % 6 L (Manual) Reactive 2 H Lymphocytes % (Manual) Monocytes % Monocytes % 2 (Manual) Eosinophils % Eosinophils % 1 (Manual) Basophils % Myelocytes % 2 H (Manual) Promyelocytes % 2 H (Manual) Nucleated Red 6 H Blood Cells % Immature 2.630 H Granulocytes # Neutrophils # Neutrophils # 17.6 H (Manual) Band 6.2 H Neutrophils # Lymphocytes 1.5 (Manual) Lymphocytes # Reactive 0.5 H Lymphocytes # Monocytes # Monocytes # 0.5 (Manual) Eosinophils # Basophils # Myelocytes # 0.5 H Promyelocytes # 0.5 H Nucleated Red Blood Cells # Platelet SIG DECREASED Estimate Polychromasia 3+ Poikilocytosis 3+ Anisocytosis 2+ Macrocytosis 1+ Ovalocytes 1+ Sodium Level 124 L Potassium Level 6.8 *H Chloride Level 92 L Carbon Dioxide 12 L Level Anion Gap 20 H Blood Urea 69 H Nitrogen Creatinine 4.24 #H Est Glomerular 15 L Filtrat Rate mL/min Glucose Level 87 Calcium Level 7.7 L Phosphorus 11.7 H Level Magnesium Level 3.0 H Total Bilirubin 21.7 H Direct 18.80 *H Bilirubin Indirect 2.9 H Bilirubin Aspartate Amino Transf (AST/SGO T) Alanine 1217 H Aminotransferas e (ALT/SGPT) Alkaline 168 H Phosphatase Ammonia 20 Total Protein 4.8 L Albumin 2.1 L Globulin 2.70 Albumin/Globuli 0.77 n Ratio Lipase 1681 H Test 11/20/18 10:46 11/20/18 10:51 11/20/18 11:00 Prothrombin Pending Time Prothrombin 7.7 Time Ratio INR Pending International Normalized Rati o Activated Pending Partial Thrombo plast Time Sodium Level 124 L Potassium Level 7.0 *H Chloride Level 92 L Carbon Dioxide 13 L Level Anion Gap 19 H Blood Urea 68 H Nitrogen Creatinine 4.14 H Est Glomerular 15 L Filtrat Rate mL/min Glucose Level 60 #L Calcium Level 8.0 L Bedside Glucose 77 Blood Gas Blood arterial Specimen Source Arterial Blood 11/20/2018 11:40 Date Drawn :01 AM Arterial Blood 7.080 *L pH (Temp corrected ) Arterial Blood 41.6 pCO2 (Temp correct) Arterial Blood 81.9 pO2 (Temp corrected ) Arterial Blood 12.1 L HCO3 Arterial Blood -16.8 L Base Excess Arterial Blood 91.8 L Oxygen Saturati on Gian Test ACCEPTAB Arterial Blood Right Radial Gas Puncture Site Arterial 2.4 Blood Carboxyhe moglobin Arterial Blood 0.6 Methemoglobin Blood Gas A-a 589.5 H O2 Differential Oxyhemoglobin 89.0 L Percent Blood Gas 37.0 Temperature Blood Gas 22.0 Respiration Rate Blood Gas VENT - AC Modality FiO2 100.0 Blood Gas Tidal 500.0 Volume Blood Gas Low 5.0 PEEP Setting Blood Gas LPEREZ R.N. Critical Value Read Back Blood Gas MDA Notified Whom Blood Gas 11/20/2018 11:44 Notified Time :42 AM Subjective 24 Hr Interval Summary Subjective hx not possible: pt non-verbal Exam/Review of Systems Exam Vitals Vital Signs Date Temp Pulse Resp B/P (MAP) Pulse Ox O2 O2 Flow FiO2 Time Delivery Rate 11/20/18 117 08:00 11/20/18 17 106/57 94 07:45 (73) 11/20/18 Mechanical 07:00 Ventilator 11/20/18 98.2 05:07 11/20/18 100 05:00 Intake and Output 11/19/18 11/19/18 11/20/18 1414:59 22:59 06:59 IntakeIntake Total 320 ml 2040 ml 1520 ml OutputOutput Total 700 ml 300 ml BalanceBalance 320 ml 1340 ml 1220 ml Constitutional: non-verbal ENMT: intubated Respiratory: clear to auscultation Cardiovascular: regular rate and rhythm Gastrointestinal: soft; No distended Musculoskeletal: nl extremities to inspection Results Results 24hrs Laboratory Tests Test 11/20/18 04:23 11/20/18 05:15 11/20/18 05:26 11/20/18 07:00 Bedside Glucose 141 Blood Gas Blood arterial Blood Specimen arterial Source Arterial Blood 11/20/2018 5:18: 11/20/2018 8:14 Date Drawn 16 AM :07 AM Arterial Blood 6.991 *L 7.036 *L pH (Temp corrected ) Arterial Blood 47.8 H 50.5 H pCO2 (Temp correct) Arterial Blood 77.6 L 72.0 L pO2 (Temp corrected ) Arterial Blood 11.3 L 13.2 L HCO3 Arterial Blood -19.0 L -16.6 L Base Excess Arterial Blood 86.9 L 86.4 L Oxygen Saturati on Gian Test ACCEPTAB ACCEPTAB Arterial Blood Left Radial Right Gas Brachial Puncture Site Arterial 2.5 2.4 Blood Carboxyhe moglobin Arterial Blood 0.9 0.7 Methemoglobin Blood Gas A-a 587.6 H 590.5 H O2 Differential Oxyhemoglobin 83.9 L 83.7 L Percent Blood Gas 37.0 37.0 Temperature Blood Gas 18.0 22.0 Respiration Rate Blood Gas 19 23 Actual Respiration Rat e Blood Gas VENT - AC VENT - AC Modality FiO2 100.0 100.0 Blood Gas Tidal 500.0 500.0 Volume Blood Gas Low 5.0 5.0 PEEP Setting Blood Gas D GORDO QUINTERO RVivianNVivian Critical Value Read Back Blood Gas Saji BUSH RCP [facility] Notified Whom Blood Gas 11/20/2018 5:23: 11/20/2018 8:18 Notified Time 50 AM :29 AM White Blood 26.2 #H Count Red Blood Count 2.06 L Hemoglobin 7.2 L Hematocrit 23.0 L Mean 111.7 H Corpuscular Volume Mean 35.0 H Corpuscular Hemoglobin Mean 31.3 L Corpuscular Hemoglobin Conc ent Red Cell 22.7 H Distribution Width Platelet Count 36 L Mean Platelet 12.7 H Volume Immature 10.000 H Granulocytes % Neutrophils % Segmented 61 Neutrophils % (Manual) Band 24 H Neutrophils % (Manual) Lymphocytes % Lymphocytes % 6 L (Manual) Reactive 2 H Lymphocytes % (Manual) Monocytes % Monocytes % 2 (Manual) Eosinophils % Eosinophils % 1 (Manual) Basophils % Myelocytes % 2 H (Manual) Promyelocytes % 2 H (Manual) Nucleated Red 6 H Blood Cells % Immature 2.630 H Granulocytes # Neutrophils # Neutrophils # 17.6 H (Manual) Band 6.2 H Neutrophils # Lymphocytes 1.5 (Manual) Lymphocytes # Reactive 0.5 H Lymphocytes # Monocytes # Monocytes # 0.5 (Manual) Eosinophils # Basophils # Myelocytes # 0.5 H Promyelocytes # 0.5 H Nucleated Red Blood Cells # Platelet SIG DECREASED Estimate Polychromasia 3+ Poikilocytosis 3+ Anisocytosis 2+ Macrocytosis 1+ Ovalocytes 1+ Sodium Level 124 L Potassium Level 6.8 *H Chloride Level 92 L Carbon Dioxide 12 L Level Anion Gap 20 H Blood Urea 69 H Nitrogen Creatinine 4.24 #H Est Glomerular 15 L Filtrat Rate mL/min Glucose Level 87 Calcium Level 7.7 L Phosphorus 11.7 H Level Magnesium Level 3.0 H Total Bilirubin 21.7 H Direct 18.80 *H Bilirubin Indirect 2.9 H Bilirubin Aspartate Amino Transf (AST/SGO T) Alanine 1217 H Aminotransferas e (ALT/SGPT) Alkaline 168 H Phosphatase Ammonia 20 Total Protein 4.8 L Albumin 2.1 L Globulin 2.70 Albumin/Globuli 0.77 n Ratio Lipase 1681 H Test 11/20/18 10:46 11/20/18 10:51 11/20/18 11:00 Prothrombin Pending Time Prothrombin 7.7 Time Ratio INR Pending International Normalized Rati o Activated Pending Partial Thrombo plast Time Sodium Level 124 L Potassium Level 7.0 *H Chloride Level 92 L Carbon Dioxide 13 L Level Anion Gap 19 H Blood Urea 68 H Nitrogen Creatinine 4.14 H Est Glomerular 15 L Filtrat Rate mL/min Glucose Level 60 #L Calcium Level 8.0 L Bedside Glucose 77 Blood Gas Blood arterial Specimen Source Arterial Blood 11/20/2018 11:40 Date Drawn :01 AM Arterial Blood 7.080 *L pH (Temp corrected ) Arterial Blood 41.6 pCO2 (Temp correct) Arterial Blood 81.9 pO2 (Temp corrected ) Arterial Blood 12.1 L HCO3 Arterial Blood -16.8 L Base Excess Arterial Blood 91.8 L Oxygen Saturati on Gian Test ACCEPTAB Arterial Blood Right Radial Gas Puncture Site Arterial 2.4 Blood Carboxyhe moglobin Arterial Blood 0.6 Methemoglobin Blood Gas A-a 589.5 H O2 Differential Oxyhemoglobin 89.0 L Percent Blood Gas 37.0 Temperature Blood Gas 22.0 Respiration Rate Blood Gas VENT - AC Modality FiO2 100.0 Blood Gas Tidal 500.0 Volume Blood Gas Low 5.0 PEEP Setting Blood Gas LPEREZ R.N. Critical Value Read Back Blood Gas MDA Notified Whom Blood Gas 11/20/2018 11:44 Notified Time :42 AM Medications Medication Current Medications IV Flush (NS 3 ml) 3 ml PER PROTOCOL IV ; Start 11/08/18 at 20:30 Docusate Sodium (Colace) 100 mg Q12H PRN PO .CONSTIPATION; Start 11/08/18 at 20:30 Bisacodyl (Dulcolax) 5 mg DAILY PRN PO .CONSTIPATION Last administered on 11/18/18 10:46; Admin Dose 5 MG; Start 11/08/18 at 20:30 Ondansetron HCl (Zofran Inj) 4 mg Q4H PRN IV NAUSEA AND/OR VOMITING Last ad ministered on 11/18/18 06:27; Admin Dose 4 MG; Start 11/08/18 at 20:30 Thiamine HCl (Vitamin B1) 100 mg DAILY PO Last administered on 11/19/18 09:00; Admin Dose 100 MG; Start 11/09/18 at 09:00 Rifaximin (Xifaxan) 550 mg BID PO Last administered on 11/19/18 20:40; Admin Dose 550 MG; Start 11/09/18 at 00:00 Multivitamins Therapeutic (Theragran) 1 tab DAILY PO Last administered on 11/19/18 09:00; Admin Dose 1 TAB; Start 11/09/18 at 09:00 Folic Acid (Folic Acid) 1 mg DAILY PO Last administered on 11/19/18 08:59; Admin Dose 1 MG; Start 11/09/18 at 09:00 Pantoprazole (Protonix Tab) 40 mg DAILY@06 PO Last administered on 11/19/18 04:54; Admin Dose 40 MG; Start 11/10/18 at 06:00 Acetaminophen (Tylenol Tab) 650 mg Q6H PRN PO MILD PAIN(1-3)OR ELEVATED TEMP Last administered on 11/18/18 10:46; Admin Dose 650 MG; Start 11/18/18 at 07:00 Oxycodone HCl (Roxicodone) 5 mg Q6H PRN PO MODERATE PAIN LEVEL 4-6 Last administered on 11/19/18 20:39; Admin Dose 5 MG; Start 11/18/18 at 11:30 Olanzapine (Zyprexa) 5 mg Q12H PRN IM agitation Last administered on 11/19/18at 20:40; Admin Dose 5 MG; Start 11/18/18 at 14:30 Morphine Sulfate (morphine) 2 mg Q4H PRN IV SEVERE PAIN LEVEL 7-10 Last ad ministered on 11/19/18at 22:42; Admin Dose 2 MG; Start 11/18/18 at 14:30 Lactulose (Lactulose Enema) 100 ml Q8 NV Last administered on 11/19/18at 21:20; Admin Dose 100 ML; Start 11/19/18 at 22:00 Sodium Chloride (Nacl) 1 gm TID PO ; Start 11/20/18 at 09:00 Midazolam HCl 50 ml @ 1 mls/hr TITRATE PRN IV AGITATION Last administered on 11/20/18at 06:40; Admin Dose 2 MLS/HR; Start 11/20/18 at 05:00 Insulin Aspart (Novolog Insulin Pen) NOVOLOG *MILD* ALGORI... Q4 SC ; Start 11/20/18 at 09:00 Miscellaneous Information 1 ea NOTE XX ; Start 11/20/18 at 07:00 Glucose (Glutose) 15 gm Q15M PRN PO DECREASED GLUCOSE; Start 11/20/18 at 07:00 Glucose (Glutose) 22.5 gm Q15M PRN PO DECREASED GLUCOSE; Start 11/20/18 at 07:00 Dextrose (D50w Syringe) 25 ml Q15M PRN IV DECREASED GLUCOSE; Start 11/20/18 at 07:00 Dextrose (D50w Syringe) 50 ml Q15M PRN IV DECREASED GLUCOSE; Start 11/20/18 at 07:00 Glucagon (Glucagen) 1 mg Q15M PRN IM DECREASED GLUCOSE; Start 11/20/18 at 07:00 Glucose (Glutose) 15 gm Q15M PRN BUCCAL DECREASED GLUCOSE; Start 11/20/18 at 07:00 Phenylephrine HCl 80 mg/Dextrose 250 ml @ 18.75 mls/ hr TITRATE IV ; Start 11/20/18 at 10:30 Miscellaneous Information (* Miscellaneous Pharmacy Order) QUAD CONCENTRATE ALL DRIPS ONCE XX ; Start 11/20/18 at 10:30 Sodium Bicarbonate 150 meq/Dextrose 1,000 ml @ 80 mls/hr [id number] IV Last administered on 11/20/18 11:34; Admin Dose 80 MLS/HR; Start 11/20/18 at 11:00 Norepinephrine 32 mg/Dextrose 250 ml @ 0.47 mls/hr TITRATE IV Last administe red on 11/20/18at 11:26; Admin Dose 14.06 MLS/HR; Start 11/20/18 at 11:00 Dopamine HCl 800 mg/Dextrose 250 ml @ 2.14 mls/hr TITRATE IV Last administered on 11/20/18at 12:07; Admin Dose 42.83 MLS/HR; Start 11/20/18 at 10:30 WENDY OSORIO Nov 20, 2018 12:15
--- NOTE | 2018-11-20 12:31 | PN ---
Date/Time of Note Date/Time of Note DATE: 11/20/18 TIME: 12:23 Assessment/Plan VTE Prophylaxis Risk score (from Ns)>0 risk: 5 SCD applied (from [facility]): Yes Pharmacological prophylaxis: other (scds) Assessment/Plan Hospital Course Hepatic encephalopathy Decompensated liver cirrhosis from alcoholism. Alcoholic hepatitis- steroid tx stopped as patient was not responding Hepatorenal syndrome Leukocytosis Coagulopathy Thrombocytopenia Transaminitis Pancreatitis UTI Obesity Hypertension Hyponatremia- nephrology following Hepatitis C AB positive- with negative RNA Cardiac arrest 11/20/18 Hyperkalemia- Plan: S/p cardiac arrest this am- pt transferred to ICU intubated on pressors Supportive care- close observation Code status DNR Palliative care has been consulted- Patient seen in collaboration with Dr. Nuñez Subjective: Patient remains in ICU, limited options for treatment Overall very poor prognosis. Continue supportive care PHYSICAL EXAMINATION: GENERAL: Obese, obtundent, Jaundice, intuabted SKIN: No lesions, profound jaundice, ecchymosis on upper and lower extremities HEAD: Normocephalic, atraumatic, no tenderness. EYES: Pupils equal reactive to light and accommodation, no discharge. EARS/NOSE AND THROAT: Ears normal, nose normal NECK: Supple, no masses CHEST: Inspection within normal limits. CARDIOVASCULAR: Heart: Regular rate and rhythm RESPIRATORY: Lungs clear to auscultation. GASTROINTESTINAL AND LIVER: Abdomen: Soft, generalized tenderness, non- distended, +ascites, no guarding, no rebound tenderness, normoactive bowel sounds. Rectal: Deferred. Result Diagram: 11/20/18 0526 11/20/18 1046 Results 24hrs Laboratory Tests Test 11/20/18 04:23 11/20/18 05:15 11/20/18 05:26 11/20/18 07:00 Bedside Glucose 141 Blood Gas Blood arterial Blood Specimen arterial Source Arterial Blood 11/20/2018 5:18: 11/20/2018 8:14 Date Drawn 16 AM :07 AM Arterial Blood 6.991 *L 7.036 *L pH (Temp corrected ) Arterial Blood 47.8 H 50.5 H pCO2 (Temp correct) Arterial Blood 77.6 L 72.0 L pO2 (Temp corrected ) Arterial Blood 11.3 L 13.2 L HCO3 Arterial Blood -19.0 L -16.6 L Base Excess Arterial Blood 86.9 L 86.4 L Oxygen Saturati on Gian Test ACCEPTAB ACCEPTAB Arterial Blood Left Radial Right Gas Brachial Puncture Site Arterial 2.5 2.4 Blood Carboxyhe moglobin Arterial Blood 0.9 0.7 Methemoglobin Blood Gas A-a 587.6 H 590.5 H O2 Differential Oxyhemoglobin 83.9 L 83.7 L Percent Blood Gas 37.0 37.0 Temperature Blood Gas 18.0 22.0 Respiration Rate Blood Gas 19 23 Actual Respiration Rat e Blood Gas VENT - AC VENT - AC Modality FiO2 100.0 100.0 Blood Gas Tidal 500.0 500.0 Volume Blood Gas Low 5.0 5.0 PEEP Setting Blood Gas D GORDO QUINTERO R.N. Critical Value Read Back Blood Gas D RACHELLE BAIG MDA Notified Whom Blood Gas 11/20/2018 5:23: 11/20/2018 8:18 Notified Time 50 AM :29 AM White Blood 26.2 #H Count Red Blood Count 2.06 L Hemoglobin 7.2 L Hematocrit 23.0 L Mean 111.7 H Corpuscular Volume Mean 35.0 H Corpuscular Hemoglobin Mean 31.3 L Corpuscular Hemoglobin Conc ent Red Cell 22.7 H Distribution Width Platelet Count 36 L Mean Platelet 12.7 H Volume Immature 10.000 H Granulocytes % Neutrophils % Segmented 61 Neutrophils % (Manual) Band 24 H Neutrophils % (Manual) Lymphocytes % Lymphocytes % 6 L (Manual) Reactive 2 H Lymphocytes % (Manual) Monocytes % Monocytes % 2 (Manual) Eosinophils % Eosinophils % 1 (Manual) Basophils % Myelocytes % 2 H (Manual) Promyelocytes % 2 H (Manual) Nucleated Red 6 H Blood Cells % Immature 2.630 H Granulocytes # Neutrophils # Neutrophils # 17.6 H (Manual) Band 6.2 H Neutrophils # Lymphocytes 1.5 (Manual) Lymphocytes # Reactive 0.5 H Lymphocytes # Monocytes # Monocytes # 0.5 (Manual) Eosinophils # Basophils # Myelocytes # 0.5 H Promyelocytes # 0.5 H Nucleated Red Blood Cells # Platelet SIG DECREASED Estimate Polychromasia 3+ Poikilocytosis 3+ Anisocytosis 2+ Macrocytosis 1+ Ovalocytes 1+ Sodium Level 124 L Potassium Level 6.8 *H Chloride Level 92 L Carbon Dioxide 12 L Level Anion Gap 20 H Blood Urea 69 H Nitrogen Creatinine 4.24 #H Est Glomerular 15 L Filtrat Rate mL/min Glucose Level 87 Calcium Level 7.7 L Phosphorus 11.7 H Level Magnesium Level 3.0 H Total Bilirubin 21.7 H Direct 18.80 *H Bilirubin Indirect 2.9 H Bilirubin Aspartate Amino Transf (AST/SGO T) Alanine 1217 H Aminotransferas e (ALT/SGPT) Alkaline 168 H Phosphatase Ammonia 20 Total Protein 4.8 L Albumin 2.1 L Globulin 2.70 Albumin/Globuli 0.77 n Ratio Lipase 1681 H Test 11/20/18 10:46 11/20/18 10:51 11/20/18 11:00 Prothrombin 98.3 #H Time Prothrombin 7.7 Time Ratio INR > 10.00 *H International Normalized Rati o Activated > 180.0 *H Partial Thrombo plast Time Sodium Level 124 L Potassium Level 7.0 *H Chloride Level 92 L Carbon Dioxide 13 L Level Anion Gap 19 H Blood Urea 68 H Nitrogen Creatinine 4.14 H Est Glomerular 15 L Filtrat Rate mL/min Glucose Level 60 #L Calcium Level 8.0 L Bedside Glucose 77 Blood Gas Blood arterial Specimen Source Arterial Blood 11/20/2018 11:40 Date Drawn :01 AM Arterial Blood 7.080 *L pH (Temp corrected ) Arterial Blood 41.6 pCO2 (Temp correct) Arterial Blood 81.9 pO2 (Temp corrected ) Arterial Blood 12.1 L HCO3 Arterial Blood -16.8 L Base Excess Arterial Blood 91.8 L Oxygen Saturati on Gian Test ACCEPTAB Arterial Blood Right Radial Gas Puncture Site Arterial 2.4 Blood Carboxyhe moglobin Arterial Blood 0.6 Methemoglobin Blood Gas A-a 589.5 H O2 Differential Oxyhemoglobin 89.0 L Percent Blood Gas 37.0 Temperature Blood Gas 22.0 Respiration Rate Blood Gas VENT - AC Modality FiO2 100.0 Blood Gas Tidal 500.0 Volume Blood Gas Low 5.0 PEEP Setting Blood Gas LPEREZ R.N. Critical Value Read Back Blood Gas MDA Notified Whom Blood Gas 11/20/2018 11:44 Notified Time :42 AM Exam/Review of Systems Exam Vitals Vital Signs Date Temp Pulse Resp B/P (MAP) Pulse Ox O2 O2 Flow FiO2 Time Delivery Rate 11/20/18 117 08:00 11/20/18 17 106/57 94 07:45 (73) 11/20/18 Mechanical 07:00 Ventilator 11/20/18 98.2 05:07 11/20/18 100 05:00 Intake and Output 11/19/18 11/19/18 11/20/18 1515:00 23:00 07:00 IntakeIntake Total 320 ml 2040 ml 1736.618 ml OutputOutput Total 700 ml 340 ml BalanceBalance 320 ml 1340 ml 1396.618 ml Results Results 24hrs Laboratory Tests Test 11/20/18 04:23 11/20/18 05:15 11/20/18 05:26 11/20/18 07:00 Bedside Glucose 141 Blood Gas Blood arterial Blood Specimen arterial Source Arterial Blood 11/20/2018 5:18: 11/20/2018 8:14 Date Drawn 16 AM :07 AM Arterial Blood 6.991 *L 7.036 *L pH (Temp corrected ) Arterial Blood 47.8 H 50.5 H pCO2 (Temp correct) Arterial Blood 77.6 L 72.0 L pO2 (Temp corrected ) Arterial Blood 11.3 L 13.2 L HCO3 Arterial Blood -19.0 L -16.6 L Base Excess Arterial Blood 86.9 L 86.4 L Oxygen Saturati on Gian Test ACCEPTAB ACCEPTAB Arterial Blood Left Radial Right Gas Brachial Puncture Site Arterial 2.5 2.4 Blood Carboxyhe moglobin Arterial Blood 0.9 0.7 Methemoglobin Blood Gas A-a 587.6 H 590.5 H O2 Differential Oxyhemoglobin 83.9 L 83.7 L Percent Blood Gas 37.0 37.0 Temperature Blood Gas 18.0 22.0 Respiration Rate Blood Gas 19 23 Actual Respiration Rat e Blood Gas VENT - AC VENT - AC Modality FiO2 100.0 100.0 Blood Gas Tidal 500.0 500.0 Volume Blood Gas Low 5.0 5.0 PEEP Setting Blood Gas D GORDO QUINTERO R.N. Critical Value Read Back Blood Gas Saji BUSH RCP MDA Notified Whom Blood Gas 11/20/2018 5:23: 11/20/2018 8:18 Notified Time 50 AM :29 AM White Blood 26.2 #H Count Red Blood Count 2.06 L Hemoglobin 7.2 L Hematocrit 23.0 L Mean 111.7 H Corpuscular Volume Mean 35.0 H Corpuscular Hemoglobin Mean 31.3 L Corpuscular Hemoglobin Conc ent Red Cell 22.7 H Distribution Width Platelet Count 36 L Mean Platelet 12.7 H Volume Immature 10.000 H Granulocytes % Neutrophils % Segmented 61 Neutrophils % (Manual) Band 24 H Neutrophils % (Manual) Lymphocytes % Lymphocytes % 6 L (Manual) Reactive 2 H Lymphocytes % (Manual) Monocytes % Monocytes % 2 (Manual) Eosinophils % Eosinophils % 1 (Manual) Basophils % Myelocytes % 2 H (Manual) Promyelocytes % 2 H (Manual) Nucleated Red 6 H Blood Cells % Immature 2.630 H Granulocytes # Neutrophils # Neutrophils # 17.6 H (Manual) Band 6.2 H Neutrophils # Lymphocytes 1.5 (Manual) Lymphocytes # Reactive 0.5 H Lymphocytes # Monocytes # Monocytes # 0.5 (Manual) Eosinophils # Basophils # Myelocytes # 0.5 H Promyelocytes # 0.5 H Nucleated Red Blood Cells # Platelet SIG DECREASED Estimate Polychromasia 3+ Poikilocytosis 3+ Anisocytosis 2+ Macrocytosis 1+ Ovalocytes 1+ Sodium Level 124 L Potassium Level 6.8 *H Chloride Level 92 L Carbon Dioxide 12 L Level Anion Gap 20 H Blood Urea 69 H Nitrogen Creatinine 4.24 #H Est Glomerular 15 L Filtrat Rate mL/min Glucose Level 87 Calcium Level 7.7 L Phosphorus 11.7 H Level Magnesium Level 3.0 H Total Bilirubin 21.7 H Direct 18.80 *H Bilirubin Indirect 2.9 H Bilirubin Aspartate Amino Transf (AST/SGO T) Alanine 1217 H Aminotransferas e (ALT/SGPT) Alkaline 168 H Phosphatase Ammonia 20 Total Protein 4.8 L Albumin 2.1 L Globulin 2.70 Albumin/Globuli 0.77 n Ratio Lipase 1681 H Test 11/20/18 10:46 11/20/18 10:51 11/20/18 11:00 Prothrombin 98.3 #H Time Prothrombin 7.7 Time Ratio INR > 10.00 *H International Normalized Rati o Activated > 180.0 *H Partial Thrombo plast Time Sodium Level 124 L Potassium Level 7.0 *H Chloride Level 92 L Carbon Dioxide 13 L Level Anion Gap 19 H Blood Urea 68 H Nitrogen Creatinine 4.14 H Est Glomerular 15 L Filtrat Rate mL/min Glucose Level 60 #L Calcium Level 8.0 L Bedside Glucose 77 Blood Gas Blood arterial Specimen Source Arterial Blood 11/20/2018 11:40 Date Drawn :01 AM Arterial Blood 7.080 *L pH (Temp corrected ) Arterial Blood 41.6 pCO2 (Temp correct) Arterial Blood 81.9 pO2 (Temp corrected ) Arterial Blood 12.1 L HCO3 Arterial Blood -16.8 L Base Excess Arterial Blood 91.8 L Oxygen Saturati on Gian Test ACCEPTAB Arterial Blood Right Radial Gas Puncture Site Arterial 2.4 Blood Carboxyhe moglobin Arterial Blood 0.6 Methemoglobin Blood Gas A-a 589.5 H O2 Differential Oxyhemoglobin 89.0 L Percent Blood Gas 37.0 Temperature Blood Gas 22.0 Respiration Rate Blood Gas VENT - AC Modality FiO2 100.0 Blood Gas Tidal 500.0 Volume Blood Gas Low 5.0 PEEP Setting Blood Gas LPEREZ R.N. Critical Value Read Back Blood Gas MDA Notified Whom Blood Gas 11/20/2018 11:44 Notified Time :42 AM Medications Medication Current Medications IV Flush (NS 3 ml) 3 ml PER PROTOCOL IV ; Start 11/08/18 at 20:30 Docusate Sodium (Colace) 100 mg Q12H PRN PO .CONSTIPATION; Start 11/08/18 at 20:30 Bisacodyl (Dulcolax) 5 mg DAILY PRN PO .CONSTIPATION Last administered on 11/18 10:46; Admin Dose 5 MG; Start 11/08/18 at 20:30 Ondansetron HCl (Zofran Inj) 4 mg Q4H PRN IV NAUSEA AND/OR VOMITING Last administered on 11/18/18 06:27; Admin Dose 4 MG; Start 11/08/18 at 20:30 Thiamine HCl (Vitamin B1) 100 mg DAILY PO Last administered on 11/19/18 09:00; Admin Dose 100 MG; Start 11/09/18 at 09:00 Rifaximin (Xifaxan) 550 mg BID PO Last administered on 11/19/18 20:40; Admin Dose 550 MG; Start 11/09/18 at 00:00 Multivitamins Therapeutic (Theragran) 1 tab DAILY PO Last administered on 11/19/18 09:00; Admin Dose 1 TAB; Start 11/09/18 at 09:00 Folic Acid (Folic Acid) 1 mg DAILY PO Last administered on 11/19/18 08:59; Admin Dose 1 MG; Start 11/09/18 at 09:00 Pantoprazole (Protonix Tab) 40 mg DAILY@06 PO Last administered on 11/19/18 04:54; Admin Dose 40 MG; Start 11/10/18 at 06:00 Acetaminophen (Tylenol Tab) 650 mg Q6H PRN PO MILD PAIN(1-3)OR ELEVATED TEMP L ast administered on 11/18/18at 10:46; Admin Dose 650 MG; Start 11/18/18 at 07:00 Oxycodone HCl (Roxicodone) 5 mg Q6H PRN PO MODERATE PAIN LEVEL 4-6 Last administered on 11/19/18at 20:39; Admin Dose 5 MG; Start 11/18/18 at 11:30 Olanzapine (Zyprexa) 5 mg Q12H PRN IM agitation Last administered on 11/19/18at 20:40; Admin Dose 5 MG; Start 11/18/18 at 14:30 Morphine Sulfate (morphine) 2 mg Q4H PRN IV SEVERE PAIN LEVEL 7-10 Last administered on 11/19/18at 22:42; Admin Dose 2 MG; Start 11/18/18 at 14:30 Lactulose (Lactulose Enema) 100 ml Q8 MA Last administered on 11/19/18at 21:20; Admin Dose 100 ML; Start 11/19/18 at 22:00 Sodium Chloride (Nacl) 1 gm TID PO ; Start 11/20/18 at 09:00 Midazolam HCl 50 ml @ 1 mls/hr TITRATE PRN IV AGITATION Last administered on 11/20/18at 06:40; Admin Dose 2 MLS/HR; Start 11/20/18 at 05:00 Insulin Aspart (Novolog Insulin Pen) NOVOLOG *MILD* ALGORI... Q4 SC ; Start 11/20/18 at 09:00 Miscellaneous Information 1 ea NOTE XX ; Start 11/20/18 at 07:00 Glucose (Glutose) 15 gm Q15M PRN PO DECREASED GLUCOSE; Start 11/20/18 at 07:00 Glucose (Glutose) 22.5 gm Q15M PRN PO DECREASED GLUCOSE; Start 11/20/18 at 07:00 Dextrose (D50w Syringe) 25 ml Q15M PRN IV DECREASED GLUCOSE; Start 11/20/18 at 07:00 Dextrose (D50w Syringe) 50 ml Q15M PRN IV DECREASED GLUCOSE; Start 11/20/18 at 07:00 Glucagon (Glucagen) 1 mg Q15M PRN IM DECREASED GLUCOSE; Start 11/20/18 at 07:00 Glucose (Glutose) 15 gm Q15M PRN BUCCAL DECREASED GLUCOSE; Start 11/20/18 at 07:00 Phenylephrine HCl 80 mg/Dextrose 250 ml @ 18.75 mls/ hr TITRATE IV ; Start 11/20/18 at 10:30 Miscellaneous Information (* Miscellaneous Pharmacy Order) QUAD CONCENTRATE ALL DRIPS ONCE XX ; Start 11/20/18 at 10:30 Sodium Bicarbonate 150 meq/Dextrose 1,000 ml @ 80 mls/hr [id number] IV Last administered on 11/20/18at 11:34; Admin Dose 80 MLS/HR; Start 11/20/18 at 11:00 Norepinephrine 32 mg/Dextrose 250 ml @ 0.47 mls/hr TITRATE IV Last administered on 11/20/18at 11:26; Admin Dose 14.06 MLS/HR; Start 11/20/18 at 11: 00 Dopamine HCl 800 mg/Dextrose 250 ml @ 2.14 mls/hr TITRATE IV Last administered on 11/20/18at 12:07; Admin Dose 42.83 MLS/HR; Start 11/20/18 at 10:30 LUDWIG LOPEZ Nov 20, 2018 12:31
--- NOTE | 2018-11-20 13:52 | CONS ---
Assessment/Plan Assessment/Plan Assessment/Plan (Daily) IMP: 1. status-post cardiopulmonary arrest 2. Refractory Shock 2/2 decompensated cirrhosis with multiorgan failure 3. Decompensated Liver Failure 4. SCOTTY 5. Coagulopathy 6. Resp Failure 7. Anoxic Encephalopathy RECS: 1. Family has decided on transitioning to full comfort measures later this afternoon, which in view of Mr. Hurst's prognosis, is very reasonable. 2. For the time being, continue supportive measures though no chest compressions 3. Start Fentanyl gtt 4. Once family ready for comfort measures, will extubate and increase fentanyl (or morphine) gtt as needed. 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 Overnight his course was complicated by cardiopulmonary arrest likely 2/2 hyperkalemia now resulting shock with multiorgan failure. He his now comatose on the vent and requiring multiple pressors. Subjective hx not possible: pt non-verbal Past Medical History Medical History: high cholesterol, hypertension, other Home Meds Active Scripts Sodium Chloride (Sodium Chloride) 1,000 Mg Tablet.dee, 1 GM PO BID for 14 Days, #28 TAB Prov:DOLL,SCOTT V. OTR [employer] 11/03/18 Pantoprazole* (Protonix*) 40 Mg Tablet.dr, 40 MG PO DAILY, #30 TAB Prov:DOLL,SCOTT V. [employer] 11/03/18 Prednisone* (Prednisone*) 20 Mg Tab, 40 MG PO DAILY for 28 Days, TAB Prov:DOLL,SCOTT V. [employer] 11/03/18 Thiamine* (Vitamin B-1*) 100 Mg Tablet, 100 MG PO DAILY, #30 TAB Prov:DOLL,SCOTT V. [employer] 11/03/18 Lisinopril* (Lisinopril*) 10 Mg Tablet, 10 MG PO BID, #60 TAB Prov:DOLL,SCOTT V. [employer] 11/03/18 Spironolactone* (Aldactone*) 25 Mg Tablet, 50 MG PO DAILY, #30 TAB Prov:SCOTT DOLL VVivian OTR [employer] 11/03/18 Reported Medications Naltrexone Hcl (Trexan) 50 Mg Tab, 50 MG PO DAILY, TAB 11/08/18 Paroxetine Hcl* (Paxil*) 30 Mg Tablet, 30 MG PO HS, TAB 10/26/18 Medications Current Medications IV Flush (NS 3 ml) 3 ml PER PROTOCOL IV ; Start 11/08/18 at 20:30 Docusate Sodium (Colace) 100 mg Q12H PRN PO .CONSTIPATION; Start 11/08/18 at 20:30 Bisacodyl (Dulcolax) 5 mg DAILY PRN PO .CONSTIPATION Last administered on 11/18/18 10:46; Admin Dose 5 MG; Start 11/08/18 at 20:30 Ondansetron HCl (Zofran Inj) 4 mg Q4H PRN IV NAUSEA AND/OR VOMITING Last administered on 11/18/18 06:27; Admin Dose 4 MG; Start 11/08/18 at 20:30 Thiamine HCl (Vitamin B1) 100 mg DAILY PO Last administered on 11/19/18 09:00; Admin Dose 100 MG; Start 11/09/18 at 09:00 Rifaximin (Xifaxan) 550 mg BID PO Last administered on 11/19/18 20:40; Admin Dose 550 MG; Start 11/09/18 at 00:00 Multivitamins Therapeutic (Theragran) 1 tab DAILY PO Last administered on 11/19/18 09:00; Admin Dose 1 TAB; Start 11/09/18 at 09:00 Folic Acid (Folic Acid) 1 mg DAILY PO Last administered on 11/19/18 08:59; Admin Dose 1 MG; Start 11/09/18 at 09:00 Acetaminophen (Tylenol Tab) 650 mg Q6H PRN PO MILD PAIN(1-3)OR ELEVATED TEMP Last administered on 11/18/18 10:46; Admin Dose 650 MG; Start 11/18/18 at 07:00 Oxycodone HCl (Roxicodone) 5 mg Q6H PRN PO MODERATE PAIN LEVEL 4-6 Last administered on 11/19/18 20:39; Admin Dose 5 MG; Start 11/18/18 at 11:30 Olanzapine (Zyprexa) 5 mg Q12H PRN IM agitation Last administered on 11/19/18at 20:40; Admin Dose 5 MG; Start 11/18/18 at 14:30 Morphine Sulfate (morphine) 2 mg Q4H PRN IV SEVERE PAIN LEVEL 7-10 Last administered on 11/19/18at 22:42; Admin Dose 2 MG; Start 11/18/18 at 14:30 Lactulose (Lactulose Enema) 100 ml Q8 [place] Last administered on 11/19/18at 21:20; Admin Dose 100 ML; Start 11/19/18 at 22:00 Sodium Chloride (Nacl) 1 gm TID PO ; Start 11/20/18 at 09:00 Midazolam HCl 50 ml @ 1 mls/hr TITRATE PRN IV AGITATION Last administered on 11/20/18at 06:40; Admin Dose 2 MLS/HR; Start 11/20/18 at 05:00 Insulin Aspart (Novolog Insulin Pen) NOVOLOG *MILD* ALGORI... Q4 SC ; Start 11/20/18 at 09:00 Miscellaneous Information 1 ea NOTE XX ; Start 11/20/18 at 07:00 Glucose (Glutose) 15 gm Q15M PRN PO DECREASED GLUCOSE; Start 11/20/18 at 07:00 Glucose (Glutose) 22.5 gm Q15M PRN PO DECREASED GLUCOSE; Start 11/20/18 at 07:00 Dextrose (D50w Syringe) 25 ml Q15M PRN IV DECREASED GLUCOSE; Start 11/20/18 at 07:00 Dextrose (D50w Syringe) 50 ml Q15M PRN IV DECREASED GLUCOSE; Start 11/20/18 at 07:00 Glucagon (Glucagen) 1 mg Q15M PRN IM DECREASED GLUCOSE; Start 11/20/18 at 07:00 Glucose (Glutose) 15 gm Q15M PRN BUCCAL DECREASED GLUCOSE; Start 11/20/18 at 07:00 Phenylephrine HCl 80 mg/Dextrose 250 ml @ 18.75 mls/ hr TITRATE IV ; Start 11/20/18 at 10:30 Miscellaneous Information (* Miscellaneous Pharmacy Order) QUAD CONCENTRATE ALL DRIPS ONCE XX ; Start 11/20/18 at 10:30 Sodium Bicarbonate 150 meq/Dextrose 1,000 ml @ 80 mls/hr [id number] IV Last administered on 11/20/18at 11:34; Admin Dose 80 MLS/HR; Start 11/20/18 at 11:00 Norepinephrine 32 mg/Dextrose 250 ml @ 0.47 mls/hr TITRATE IV Last administered on 11/20/18at 11:26; Admin Dose 14.06 MLS/HR; Start 11/20/18 at 11:00 Dopamine HCl 800 mg/Dextrose 250 ml @ 2.14 mls/hr TITRATE IV Last administered on 11/20/18at 12:07; Admin Dose 42.83 MLS/HR; Start 11/20/18 at 10:30 Pantoprazole (Protonix Iv) 40 mg BID@06,18 IV ; Start 11/20/18 at 18:00 Allergies: Coded Allergies: No Known Allergy (Unverified , 11/08/18) Past Surgical History Past Surgical Hx: no surgical history Social History Alcohol Use: sober Smoking Status: Never smoker Drug Use: none Exam/Review of Systems Exam Vitals Vital Signs Date Temp Pulse Resp B/P (MAP) Pulse Ox O2 O2 Flow FiO2 Time Delivery Rate 11/20/18 117 08:00 11/20/18 17 106/57 94 07:45 (73) 11/20/18 Mechanical 07:00 Ventilator 11/20/18 98.2 05:07 11/20/18 100 05:00 Intake and Output 11/19/18 11/19/18 11/20/18 1515:00 23:00 07:00 IntakeIntake Total 320 ml 2040 ml 1736.618 ml OutputOutput Total 700 ml 340 ml BalanceBalance 320 ml 1340 ml 1396.618 ml Constitutional: non-verbal Eyes: icteric ENMT: intubated Neck: non-tender Respiratory: normal air movement Cardiovascular: regular rate and rhythm Gastrointestinal: ascites, distended Musculoskeletal: swelling Extremities: edema 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: unresponsive Results Result Diagram: 11/20/18 0526 11/20/18 1046 Results 24hrs Laboratory Tests Test 11/20/18 04:23 11/20/18 05:15 11/20/18 05:26 11/20/18 07:00 Bedside Glucose 141 Blood Gas Blood arterial Blood Specimen arterial Source Arterial Blood 11/20/2018 5:18: 11/20/2018 8:14 Date Drawn 16 AM :07 AM Arterial Blood 6.991 *L 7.036 *L pH (Temp corrected ) Arterial Blood 47.8 H 50.5 H pCO2 (Temp correct) Arterial Blood 77.6 L 72.0 L pO2 (Temp corrected ) Arterial Blood 11.3 L 13.2 L HCO3 Arterial Blood -19.0 L -16.6 L Base Excess Arterial Blood 86.9 L 86.4 L Oxygen Saturati on Gian Test ACCEPTAB ACCEPTAB Arterial Blood Left Radial Right Gas Brachial Puncture Site Arterial 2.5 2.4 Blood Carboxyhe moglobin Arterial Blood 0.9 0.7 Methemoglobin Blood Gas A-a 587.6 H 590.5 H O2 Differential Oxyhemoglobin 83.9 L 83.7 L Percent Blood Gas 37.0 37.0 Temperature Blood Gas 18.0 22.0 Respiration Rate Blood Gas 19 23 Actual Respiration Rat e Blood Gas VENT - AC VENT - AC Modality FiO2 100.0 100.0 Blood Gas Tidal 500.0 500.0 Volume Blood Gas Low 5.0 5.0 PEEP Setting Blood Gas D GORDO QUINTERO R.N. Critical Value Read Back Blood Gas Saji BUSH RCP [facility] Notified Whom Blood Gas 11/20/2018 5:23: 11/20/2018 8:18 Notified Time 50 AM :29 AM White Blood 26.2 #H Count Red Blood Count 2.06 L Hemoglobin 7.2 L Hematocrit 23.0 L Mean 111.7 H Corpuscular Volume Mean 35.0 H Corpuscular Hemoglobin Mean 31.3 L Corpuscular Hemoglobin Conc ent Red Cell 22.7 H Distribution Width Platelet Count 36 L Mean Platelet 12.7 H Volume Immature 10.000 H Granulocytes % Neutrophils % Segmented 61 Neutrophils % (Manual) Band 24 H Neutrophils % (Manual) Lymphocytes % Lymphocytes % 6 L (Manual) Reactive 2 H Lymphocytes % (Manual) Monocytes % Monocytes % 2 (Manual) Eosinophils % Eosinophils % 1 (Manual) Basophils % Myelocytes % 2 H (Manual) Promyelocytes % 2 H (Manual) Nucleated Red 6 H Blood Cells % Immature 2.630 H Granulocytes # Neutrophils # Neutrophils # 17.6 H (Manual) Band 6.2 H Neutrophils # Lymphocytes 1.5 (Manual) Lymphocytes # Reactive 0.5 H Lymphocytes # Monocytes # Monocytes # 0.5 (Manual) Eosinophils # Basophils # Myelocytes # 0.5 H Promyelocytes # 0.5 H Nucleated Red Blood Cells # Platelet SIG DECREASED Estimate Polychromasia 3+ Poikilocytosis 3+ Anisocytosis 2+ Macrocytosis 1+ Ovalocytes 1+ Sodium Level 124 L Potassium Level 6.8 *H Chloride Level 92 L Carbon Dioxide 12 L Level Anion Gap 20 H Blood Urea 69 H Nitrogen Creatinine 4.24 #H Est Glomerular 15 L Filtrat Rate mL/min Glucose Level 87 Calcium Level 7.7 L Phosphorus 11.7 H Level Magnesium Level 3.0 H Total Bilirubin 21.7 H Direct 18.80 *H Bilirubin Indirect 2.9 H Bilirubin Aspartate Amino Transf (AST/SGO T) Alanine 1217 H Aminotransferas e (ALT/SGPT) Alkaline 168 H Phosphatase Ammonia 20 Total Protein 4.8 L Albumin 2.1 L Globulin 2.70 Albumin/Globuli 0.77 n Ratio Lipase 1681 H Test 11/20/18 10:46 11/20/18 10:51 11/20/18 11:00 Prothrombin 98.3 #H Time Prothrombin 7.7 Time Ratio INR > 10.00 *H International Normalized Rati o Activated > 180.0 *H Partial Thrombo plast Time Sodium Level 124 L Potassium Level 7.0 *H Chloride Level 92 L Carbon Dioxide 13 L Level Anion Gap 19 H Blood Urea 68 H Nitrogen Creatinine 4.14 H Est Glomerular 15 L Filtrat Rate mL/min Glucose Level 60 #L Calcium Level 8.0 L Bedside Glucose 77 Blood Gas Blood arterial Specimen Source Arterial Blood 11/20/2018 11:40 Date Drawn :01 AM Arterial Blood 7.080 *L pH (Temp corrected ) Arterial Blood 41.6 pCO2 (Temp correct) Arterial Blood 81.9 pO2 (Temp corrected ) Arterial Blood 12.1 L HCO3 Arterial Blood -16.8 L Base Excess Arterial Blood 91.8 L Oxygen Saturati on Gian Test ACCEPTAB Arterial Blood Right Radial Gas Puncture Site Arterial 2.4 Blood Carboxyhe moglobin Arterial Blood 0.6 Methemoglobin Blood Gas A-a 589.5 H O2 Differential Oxyhemoglobin 89.0 L Percent Blood Gas 37.0 Temperature Blood Gas 22.0 Respiration Rate Blood Gas VENT - AC Modality FiO2 100.0 Blood Gas Tidal 500.0 Volume Blood Gas Low 5.0 PEEP Setting Blood Gas LPEREZ R.N. Critical Value Read Back Blood Gas [facility] Notified Whom Blood Gas 11/20/2018 11:44 Notified Time :42 AM Medications Medication Current Medications IV Flush (NS 3 ml) 3 ml PER PROTOCOL IV ; Start 11/08/18 at 20:30 Docusate Sodium (Colace) 100 mg Q12H PRN PO .CONSTIPATION; Start 11/08/18 at 20:30 Bisacodyl (Dulcolax) 5 mg DAILY PRN PO .CONSTIPATION Last administered on 11/18/18 10:46; Admin Dose 5 MG; Start 11/08/18 at 20:30 Ondansetron HCl (Zofran Inj) 4 mg Q4H PRN IV NAUSEA AND/OR VOMITING Last administered on 11/18/18 06:27; Admin Dose 4 MG; Start 11/08/18 at 20:30 Thiamine HCl (Vitamin B1) 100 mg DAILY PO Last administered on 11/19/18 09:00; Admin Dose 100 MG; Start 11/09/18 at 09:00 Rifaximin (Xifaxan) 550 mg BID PO Last administered on 11/19/18 20:40; Admin Dose 550 MG; Start 11/09/18 at 00:00 Multivitamins Therapeutic (Theragran) 1 tab DAILY PO Last administered on 11/19/18 09:00; Admin Dose 1 TAB; Start 11/09/18 at 09:00 Folic Acid (Folic Acid) 1 mg DAILY PO Last administered on 11/19/18 08:59; Admin Dose 1 MG; Start 11/09/18 at 09:00 Acetaminophen (Tylenol Tab) 650 mg Q6H PRN PO MILD PAIN(1-3)OR ELEVATED TEMP Last administered on 11/18/18 10:46; Admin Dose 650 MG; Start 11/18/18 at 07:00 Oxycodone HCl (Roxicodone) 5 mg Q6H PRN PO MODERATE PAIN LEVEL 4-6 Last administered on 11/19/18 20:39; Admin Dose 5 MG; Start 11/18/18 at 11:30 Olanzapine (Zyprexa) 5 mg Q12H PRN IM agitation Last administered on 11/19/18 20:40; Admin Dose 5 MG; Start 11/18/18 at 14:30 Morphine Sulfate (morphine) 2 mg Q4H PRN IV SEVERE PAIN LEVEL 7-10 Last administered on 11/19/18 22:42; Admin Dose 2 MG; Start 11/18/18 at 14:30 Lactulose (Lactulose Enema) 100 ml Q8 KS Last administered on 11/19/18at 21:20; Admin Dose 100 ML; Start 11/19/18 at 22:00 Sodium Chloride (Nacl) 1 gm TID PO ; Start 11/20/18 at 09:00 Midazolam HCl 50 ml @ 1 mls/hr TITRATE PRN IV AGITATION Last administered on 11/20/18at 06:40; Admin Dose 2 MLS/HR; Start 11/20/18 at 05:00 Insulin Aspart (Novolog Insulin Pen) NOVOLOG *MILD* ALGORI... Q4 SC ; Start 11/20/18 at 09:00 Miscellaneous Information 1 ea NOTE XX ; Start 11/20/18 at 07:00 Glucose (Glutose) 15 gm Q15M PRN PO DECREASED GLUCOSE; Start 11/20/18 at 07:00 Glucose (Glutose) 22.5 gm Q15M PRN PO DECREASED GLUCOSE; Start 11/20/18 at 07:00 Dextrose (D50w Syringe) 25 ml Q15M PRN IV DECREASED GLUCOSE; Start 11/20/18 at 07:00 Dextrose (D50w Syringe) 50 ml Q15M PRN IV DECREASED GLUCOSE; Start 11/20/18 at 07:00 Glucagon (Glucagen) 1 mg Q15M PRN IM DECREASED GLUCOSE; Start 11/20/18 at 07:00 Glucose (Glutose) 15 gm Q15M PRN BUCCAL DECREASED GLUCOSE; Start 11/20/18 at 07:00 Phenylephrine HCl 80 mg/Dextrose 250 ml @ 18.75 mls/ hr TITRATE IV ; Start 11/20/18 at 10:30 Miscellaneous Information (* Miscellaneous Pharmacy Order) QUAD CONCENTRATE ALL DRIPS ONCE XX ; Start 11/20/18 at 10:30 Sodium Bicarbonate 150 meq/Dextrose 1,000 ml @ 80 mls/hr [id number] IV Last administered on 11/20/18at 11:34; Admin Dose 80 MLS/HR; Start 11/20/18 at 11:00 Norepinephrine 32 mg/Dextrose 250 ml @ 0.47 mls/hr TITRATE IV Last administered on 11/20/18at 11:26; Admin Dose 14.06 MLS/HR; Start 11/20/18 at 11:00 Dopamine HCl 800 mg/Dextrose 250 ml @ 2.14 mls/hr TITRATE IV Last administered on 11/20/18at 12:07; Admin Dose 42.83 MLS/HR; Start 11/20/18 at 10:30 Pantoprazole (Protonix Iv) 40 mg BID@06,18 IV ; Start 11/20/18 at 18:00 MOHSEN CHRISTIANSEN MD Nov 20, 2018 13:52
--- NOTE | 2018-11-20 14:20 | EN ---
Date/Time of Note Date/Time of Note DATE: 11/20/18 TIME: 14:19 Event Note Medicine Medicine Event Note Patient with no pulse; no cardiac activity; pupils fixed and dilated. Patient pronounced at 14:18. Drips to be turned off and patient to be extubated. MOHSEN CHRISTIANSEN MD Nov 20, 2018 14:20
[2018-11-20] MEDS ORDERED: FENTAnyl (DRIP) 1000 mcg/100mL 100 ML IV SCH (14:30)
[2018-11-20] MEDS ORDERED: PANTOPRAZOLE 40 MG INJ IV SCH (18:00)
--- NOTE | 2018-11-20 18:52 | CONS ---
Assessment/Plan Assessment/Plan Assessment/Plan (Daily) 1. Hyponatremia due to Hypervolemic Hyponatremia in setting of acute liver failure - Na chloride tablet 2 gram PO TID - s/p hypertonic 3% saline at 30 cc/ hr x 12 hr given yesterday 2. 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 Acute hepatic failure 4. Biliary colic vs cholecystitis 5. H/o alcohol abuse 6. acute kidney injury due to Type II hepatorenal syndrome Plan: s/p Code blue, doign very poor, on mulitple pressors, INR >10- Not a candidate for HD Consider hospice/comfort care will sign off, call us if any question Explained to in detail that he is not a candidate for HD Consultation Date/Type/Reason Admit Date/Time Nov 08, 2018 at 19:37 Initial Consult Date 11/09/18 Type of Consult NEPHROLOGY Requesting Provider: WENDY OSORIO Date/Time of Note DATE: 11/20/18 TIME: 10:00 Exam/Review of Systems Exam Vitals Vital Signs Date Temp Pulse Resp B/P (MAP) Pulse Ox O2 O2 Flow FiO2 Time Delivery Rate 11/20/18 0 22 14:15 11/20/18 72/41 (51) 100 Mechanical 14:00 Ventilator 11/20/18 100 13:33 11/20/18 97.6 12:00 Intake and Output 11/19/18 11/19/18 11/20/18 1414:59 22:59 06:59 IntakeIntake Total 320 ml 2040 ml 1520 ml OutputOutput Total 700 ml 300 ml BalanceBalance 320 ml 1340 ml 1220 ml Results Result Diagram: 11/20/18 0526 11/20/18 1046 Results 24hrs Laboratory Tests Test 11/20/18 04:23 11/20/18 05:15 11/20/18 05:26 11/20/18 07:00 Bedside Glucose 141 Blood Gas Blood arterial Blood Specimen arterial Source Arterial Blood 11/20/2018 5:18: 11/20/2018 8:14 Date Drawn 16 AM :07 AM Arterial Blood 6.991 *L 7.036 *L pH (Temp corrected ) Arterial Blood 47.8 H 50.5 H pCO2 (Temp correct) Arterial Blood 77.6 L 72.0 L pO2 (Temp corrected ) Arterial Blood 11.3 L 13.2 L HCO3 Arterial Blood -19.0 L -16.6 L Base Excess Arterial Blood 86.9 L 86.4 L Oxygen Saturati on Gian Test ACCEPTAB ACCEPTAB Arterial Blood Left Radial Right Gas Brachial Puncture Site Arterial 2.5 2.4 Blood Carboxyhe moglobin Arterial Blood 0.9 0.7 Methemoglobin Blood Gas A-a 587.6 H 590.5 H O2 Differential Oxyhemoglobin 83.9 L 83.7 L Percent Blood Gas 37.0 37.0 Temperature Blood Gas 18.0 22.0 Respiration Rate Blood Gas 19 23 Actual Respiration Rat e Blood Gas VENT - AC VENT - AC Modality FiO2 100.0 100.0 Blood Gas Tidal 500.0 500.0 Volume Blood Gas Low 5.0 5.0 PEEP Setting Blood Gas D GORDO QUINTERO R.NVivian Critical Value Read Back Blood Gas Saji BUSH RCP [facility] Notified Whom Blood Gas 11/20/2018 5:23: 11/20/2018 8:18 Notified Time 50 AM :29 AM White Blood 26.2 #H Count Red Blood Count 2.06 L Hemoglobin 7.2 L Hematocrit 23.0 L Mean 111.7 H Corpuscular Volume Mean 35.0 H Corpuscular Hemoglobin Mean 31.3 L Corpuscular Hemoglobin Conc ent Red Cell 22.7 H Distribution Width Platelet Count 36 L Mean Platelet 12.7 H Volume Immature 10.000 H Granulocytes % Neutrophils % Segmented 61 Neutrophils % (Manual) Band 24 H Neutrophils % (Manual) Lymphocytes % Lymphocytes % 6 L (Manual) Reactive 2 H Lymphocytes % (Manual) Monocytes % Monocytes % 2 (Manual) Eosinophils % Eosinophils % 1 (Manual) Basophils % Myelocytes % 2 H (Manual) Promyelocytes % 2 H (Manual) Nucleated Red 6 H Blood Cells % Immature 2.630 H Granulocytes # Neutrophils # Neutrophils # 17.6 H (Manual) Band 6.2 H Neutrophils # Lymphocytes 1.5 (Manual) Lymphocytes # Reactive 0.5 H Lymphocytes # Monocytes # Monocytes # 0.5 (Manual) Eosinophils # Basophils # Myelocytes # 0.5 H Promyelocytes # 0.5 H Nucleated Red Blood Cells # Platelet SIG DECREASED Estimate Polychromasia 3+ Poikilocytosis 3+ Anisocytosis 2+ Macrocytosis 1+ Ovalocytes 1+ Sodium Level 124 L Potassium Level 6.8 *H Chloride Level 92 L Carbon Dioxide 12 L Level Anion Gap 20 H Blood Urea 69 H Nitrogen Creatinine 4.24 #H Est Glomerular 15 L Filtrat Rate mL/min Glucose Level 87 Calcium Level 7.7 L Phosphorus 11.7 H Level Magnesium Level 3.0 H Total Bilirubin 21.7 H Direct 18.80 *H Bilirubin Indirect 2.9 H Bilirubin Aspartate Amino Transf (AST/SGO T) Alanine 1217 H Aminotransferas e (ALT/SGPT) Alkaline 168 H Phosphatase Ammonia 20 Total Protein 4.8 L Albumin 2.1 L Globulin 2.70 Albumin/Globuli 0.77 n Ratio Lipase 1681 H Test 11/20/18 10:46 11/20/18 10:51 11/20/18 11:00 Prothrombin 98.3 #H Time Prothrombin 7.7 Time Ratio INR > 10.00 *H International Normalized Rati o Activated > 180.0 *H Partial Thrombo plast Time Sodium Level 124 L Potassium Level 7.0 *H Chloride Level 92 L Carbon Dioxide 13 L Level Anion Gap 19 H Blood Urea 68 H Nitrogen Creatinine 4.14 H Est Glomerular 15 L Filtrat Rate mL/min Glucose Level 60 #L Calcium Level 8.0 L Bedside Glucose 77 Blood Gas Blood arterial Specimen Source Arterial Blood 11/20/2018 11:40 Date Drawn :01 AM Arterial Blood 7.080 *L pH (Temp corrected ) Arterial Blood 41.6 pCO2 (Temp correct) Arterial Blood 81.9 pO2 (Temp corrected ) Arterial Blood 12.1 L HCO3 Arterial Blood -16.8 L Base Excess Arterial Blood 91.8 L Oxygen Saturati on Gian Test ACCEPTAB Arterial Blood Right Radial Gas Puncture Site Arterial 2.4 Blood Carboxyhe moglobin Arterial Blood 0.6 Methemoglobin Blood Gas A-a 589.5 H O2 Differential Oxyhemoglobin 89.0 L Percent Blood Gas 37.0 Temperature Blood Gas 22.0 Respiration Rate Blood Gas VENT - AC Modality FiO2 100.0 Blood Gas Tidal 500.0 Volume Blood Gas Low 5.0 PEEP Setting Blood Gas LPEREZ R.N. Critical Value Read Back Blood Gas [facility] Notified Whom Blood Gas 11/20/2018 11:44 Notified Time :42 AM Medications Medication Current Medications IV Flush (NS 3 ml) 3 ml PER PROTOCOL IV ; Start 11/08/18 at 20:30 Docusate Sodium (Colace) 100 mg Q12H PRN PO .CONSTIPATION; Start 11/08/18 at 20:30 Bisacodyl (Dulcolax) 5 mg DAILY PRN PO .CONSTIPATION Last administered on 11/18/18 10:46; Admin Dose 5 MG; Start 11/08/18 at 20:30 Ondansetron HCl (Zofran Inj) 4 mg Q4H PRN IV NAUSEA AND/OR VOMITING Last administered on 11/18/18 06:27; Admin Dose 4 MG; Start 11/08/18 at 20:30 Thiamine HCl (Vitamin B1) 100 mg DAILY PO Last administered on 11/19/18 09:00; Admin Dose 100 MG; Start 11/09/18 at 09:00 Rifaximin (Xifaxan) 550 mg BID PO Last administered on 11/19/18 20:40; Admin Dose 550 MG; Start 11/09/18 at 00:00 Multivitamins Therapeutic (Theragran) 1 tab DAILY PO Last administered on 11/19/18 09:00; Admin Dose 1 TAB; Start 11/09/18 at 09:00 Folic Acid (Folic Acid) 1 mg DAILY PO Last administered on 11/19/18 08:59; Admin Dose 1 MG; Start 11/09/18 at 09:00 Acetaminophen (Tylenol Tab) 650 mg Q6H PRN PO MILD PAIN(1-3)OR ELEVATED TEMP Last administered on 11/18/18 10:46; Admin Dose 650 MG; Start 11/18/18 at 07:00 Oxycodone HCl (Roxicodone) 5 mg Q6H PRN PO MODERATE PAIN LEVEL 4-6 Last administered on 11/19/18 20:39; Admin Dose 5 MG; Start 11/18/18 at 11:30 Olanzapine (Zyprexa) 5 mg Q12H PRN IM agitation Last administered on 11/19/18 20:40; Admin Dose 5 MG; Start 11/18/18 at 14:30 Morphine Sulfate (morphine) 2 mg Q4H PRN IV SEVERE PAIN LEVEL 7-10 Last administered on 11/19/18 22:42; Admin Dose 2 MG; Start 11/18/18 at 14:30 Lactulose (Lactulose Enema) 100 ml Q8 ND Last administered on 11/19/18 21:20; Admin Dose 100 ML; Start 11/19/18 at 22:00 Sodium Chloride (Nacl) 1 gm TID PO ; Start 11/20/18 at 09:00 Midazolam HCl 50 ml @ 1 mls/hr TITRATE PRN IV AGITATION Last administered on 11/20/18at 14:02; Admin Dose 6 MLS/HR; Start 11/20/18 at 05:00 Insulin Aspart (Novolog Insulin Pen) NOVOLOG *MILD* ALGORI... Q4 SC ; Start 11/20/18 at 09:00 Miscellaneous Information 1 ea NOTE XX ; Start 11/20/18 at 07:00 Glucose (Glutose) 15 gm Q15M PRN PO DECREASED GLUCOSE; Start 11/20/18 at 07:00 Glucose (Glutose) 22.5 gm Q15M PRN PO DECREASED GLUCOSE; Start 11/20/18 at 07:00 Dextrose (D50w Syringe) 25 ml Q15M PRN IV DECREASED GLUCOSE; Start 11/20/18 at 07:00 Dextrose (D50w Syringe) 50 ml Q15M PRN IV DECREASED GLUCOSE; Start 11/20/18 at 07:00 Glucagon (Glucagen) 1 mg Q15M PRN IM DECREASED GLUCOSE; Start 11/20/18 at 07:00 Glucose (Glutose) 15 gm Q15M PRN BUCCAL DECREASED GLUCOSE; Start 11/20/18 at 07:00 Phenylephrine HCl 80 mg/Dextrose 250 ml @ 18.75 mls/ hr TITRATE IV Last administered on 11/20/18at 13:56; Admin Dose 18.75 MLS/HR; Start 11/20/18 at 10:30 Miscellaneous Information (* Miscellaneous Pharmacy Order) QUAD CONCENTRATE ALL DRIPS ONCE XX ; Start 11/20/18 at 10:30 Sodium Bicarbonate 150 meq/Dextrose 1,000 ml @ 80 mls/hr [id number] IV Last administered on 11/20/18at 11:34; Admin Dose 80 MLS/HR; Start 11/20/18 at 11:00 Norepinephrine 32 mg/Dextrose 250 ml @ 0.47 mls/hr TITRATE IV Last administered on 11/20/18at 11:26; Admin Dose 14.06 MLS/HR; Start 11/20/18 at 11:00 Dopamine HCl 800 mg/Dextrose 250 ml @ 2.14 mls/hr TITRATE IV Last administered on 11/20/18at 12:07; Admin Dose 42.83 MLS/HR; Start 11/20/18 at 10:30 Pantoprazole (Protonix Iv) 40 mg BID@06,18 IV ; Start 11/20/18 at 18:00 Fentanyl 100 ml @ 5 mls/hr TITRATE IV ; Start 11/20/18 at 14:30 BUCK CARO MD Nov 20, 2018 18:52
--- NOTE | 2018-11-21 13:45 | DES ---
Date/Time of Note Date/Time of Note DATE: 11/21/18 TIME: 13:40 Discharge/ Summary Admission/Discharge Info Admit Date/Time Nov 08, 2018 at 19:37 Date/Time November 20, 2018 Final Diagnosis Cardiopulmonary failure secondary to end-stage liver disease from alcohol abuse Morbid obesity Renal failure secondary to hepatorenal syndrome Cardiac arrest Preliminary Cause of Cardiopulmonary failure secondary to end-stage liver disease from alcohol abuse Morbid obesity Renal failure secondary to hepatorenal syndrome Cardiac arrest Hospital Course Patient is a 53-year-old male with a history of alcohol abuse and obesity, patient presented with cirrhosis exacerbation as well as alcohol related pancreatitis. Patient developed worsening liver disease as well as renal failure and ultimately had a cardiac arrest and went into shock secondary to end-stage liver disease. Patient did undergo ACLS resuscitation and required multiple pressors, ultimately family decided to place patient on comfort care and patient was pronounced at 1418 on 11/20/2018. WENDY OSORIO Nov 21, 2018 13:45
== END 2018-11-20 14:18 | disposition expired | DRG 432 ==
LOC: E/R 15:18 → TEL 19:37 → ICU 11-20 04:34
PROVIDERS: ADMIT Family Medicine; ATTEND Internal Medicine
PROC: 0BH18EZ Insertion of Endotracheal Airway into Trachea, Via Natural or Artificial Opening Endoscopic (ICD-10-PCS; principal; 2018-11-20)
PROC: 5A12012 Performance of Cardiac Output, Single, Manual (ICD-10-PCS; 2018-11-20)
PROC: 5A1935Z Respiratory Ventilation, Less than 24 Consecutive Hours (ICD-10-PCS; 2018-11-20)
DX: K70.31 Alcoholic cirrhosis of liver with ascites (principal); K85.20 Alcohol induced acute pancreatitis without necrosis or infection; K76.7 Hepatorenal syndrome; J96.00 Acute respiratory failure, unspecified whether with hypoxia or hypercapnia; E87.1 Hypo-osmolality and hyponatremia; Z68.41 Body mass index [BMI] 40.0-44.9, adult; K76.6 Portal hypertension; D68.4 Acquired coagulation factor deficiency; K92.1 Melena; N39.0 Urinary tract infection, site not specified; N17.9 Acute kidney failure, unspecified; R57.9 Shock, unspecified; G93.1 Anoxic brain damage, not elsewhere classified; E87.5 Hyperkalemia; K70.40 Alcoholic hepatic failure without coma; E66.01 Morbid (severe) obesity due to excess calories; K70.11 Alcoholic hepatitis with ascites; I10 Essential (primary) hypertension; F10.20 Alcohol dependence, uncomplicated; D63.8 Anemia in other chronic diseases classified elsewhere; D69.6 Thrombocytopenia, unspecified; R31.9 Hematuria, unspecified; B19.20 Unspecified viral hepatitis C without hepatic coma; I46.8 Cardiac arrest due to other underlying condition; Z66 Do not resuscitate
CPT/HCPCS: 31500; 36415; 36430; 36600; 70450; 71045; 74181; 76705; 80048; 80053; 80307; 81001; 82140; 82150; 82270; 82803; 82962; 83690; 83735; 84100; 85025; 85610; 85730; 86038; 86255; 86850; 86900; 86901; 86920; 87081; 87086; 87522; 92950; 94002; 94770; C9113; J0171; J0461; J0610; J0696; J1265; J1630; J1815; J1885; J1940; J2060; J2250; J2270; J2405; J2920; J3010; J7030; J7040; J7042; J7070; P9016; P9047